=== PATIENT | female | born 1970 | race Caucasian/White ===

== ENCOUNTER 2024-09-29 08:29 | Emergency (ER) | payer BC, SELFPAY ==
--- NOTE | ~2024-09-29 | CT_ITS ---
EXAMINATION: CT abdomen pelvis w con DATE: 09/29/2024 09:30 INDICATION: Right lower quadrant abdominal pain. TECHNIQUE: Computed tomography (CT) of the abdomen and pelvis was performed with 100 mL Omnipaque 350 intravenous contrast. Automated exposure control and iterative reconstruction technique were employe d. The dose-length product was 205.87 mGy-cm. COMPARISON: None. FINDINGS: The visualized portions of the lung bases demonstrate mild atelectasis. No pleural effusion . The heart size is normal. No pericardial effusion. There are bilateral breast implants. The liver, spleen, gallbladder, pancreas, and adrenal glands are normal. There are cysts in the kidneys measurin g up to 6 mm on the right. There is a 3 mm stone in left kidney. There are scattered diverticula in t he colon. There is wall thickening of the hepatic flexure of the colon with surrounding fat stranding . The appendix is normal. There are no pathologically enlarged lymph nodes. There is physiologic flui d in the pelvis. There is mild lumbar spondylosis. Lumbar levoscoliosis is noted. IMPRESSION: 1. Acute diverticulitis of the hepatic flexure of the colon. No perforation or abscess. Reviewed, dictated and finalized at location [facility]. [facility]
[2024-09-29 08:32] VITALS: BP 139/68; PULSE 99; RESP 17; TEMP 36.6; O2SAT 99
[2024-09-29 08:50] VITALS: BP 137/91; PULSE 70; RESP 20; O2SAT 98
[2024-09-29 08:59] LABS: Hematocrit 40.1 % (37.0-47.0); Hemoglobin 13.5 g/dL (12.0-15.0); Mean Corpuscular HGB Conc 33.7 g/dl (32-36); Mean Corpuscular Hemoglobin 31.8 pg (26-34); Mean Corpuscular Volume 94.4 fl (80-100); Mean Platelet Volume 10.8 fl (7.4-10.4); Platelet Count Result 233 k/mm3 (150-375); Red Blood Count 4.25 M/mm3 (4.2-5.4)
[2024-09-29] MEDS: SODIUM CHLORIDE 0.9% IV 1,000 ML 999 ML IV CONT (08:59)
[2024-09-29] MEDS: MORPHINE SULFATE (*CRX) 4 MG/ML INJ IV PUSH (08:59)
[2024-09-29] MEDS: ONDANSETRON INJ 4 MG/2 ML VIAL IV PUSH (09:00)
[2024-09-29 09:08] LABS: BEDSIDEPREGUCG Negative (Negative)
[2024-09-29 09:14] LABS: Alanine Aminotransferase 13 U/L (6-35); Albumin Level 4.4 g/dL (3.5-5.1); Alkaline Phosphatase 46 U/L (38-126); Anion Gap 4 mmol/L (4-12); Aspartate Amino Transferase 24 U/L (14-36); Bilirubin,Total 1.2 mg/dL (0.2-1.3); Blood Urea Nitrogen 9 mg/dL (7-17); Calcium 9.3 mg/dL (8.4-10.2); Carbon Dioxide 28 mmol/L (22-30); Chloride 103 mmol/L (98-107); Estimated CRCL calculation 71 ml/min; Estimated Glomerular Filt Rate > 60; Glucose 100 mg/dL (65-110); Lipase 50 U/L (23-300); Potassium 4.1 mmol/L (3.4-5.0); Sodium 135 mmol/L (137-145)
[2024-09-29 09:29] LABS: Basophils Absolute Manual 0.04 K/mm3 (0.0-0.1); Basophils Percent Manual 1 % (0-1); Eosinophils Absolute Manual 0.12 K/mm3 (0.02-0.50); Eosinophils Percent Manual 3 % (0-4); Lymphocytes Absolute Manual 1.32 K/mm3 (1.1-4.5); Lymphocytes Percent Manual 33 % (18-44); Monocytes Absolute Manual 0.76 K/mm3 (0.1-0.90); Monocytes Percent Manual 19 % (3-9); Neutrophils Percent Manual 44 % (46-73); Total Cells Counted 100
[2024-09-29 09:30] LABS: Anisocytosis 1+; Platelet Estimate Adequate (Adequate); Schistocytes None Seen
--- NOTE | 2024-09-29 09:37 | ED.ABDPAIN ---
HPI - Abdominal Pain General Chief Complaint: Abdominal Pain Stated Complaint: right sided abd pain Time Seen by Provider: 09/29/24 08:44 History of Present Illness HPI narrative: Patient is a 54-year-old female who presents ER with right-sided abdominal pain. Moving towards right lower quadrant. Worsening over last 2 days. Worse with physical movement. Mild nausea and poor appetite. No diarrhea. Has not had similar symptoms previously. Related Data Allergies Allergy/AdvReac Type Severity Reaction Status Date / Time No Known Allergies Allergy Verified 09/29/24 08:34 Review of Systems Review of Systems: All systems reviewed & are unremarkable except as noted in HPI and below Constitutional: Constitutional: Reports no additional constitutional complaints Cardiovascular: Cardiovascular: Reports no additional cardiovascular complaints Respiratory: Respiratory: Reports no additional respiratory complaints Gastrointestinal: Gastrointestinal: Reports abdominal pain, Denies diarrhea, Denies nausea and Denies vomiting Genitourinary: Genitourinary: Reports no additional female genitourinary complaints PMFSH Past Medical History Medical History (Updated 09/29/24 @ 10:02 by Damaso Parra MD) Healthy female adult Surgical History Surgical History (Updated 09/29/24 @ 10:00 by Damaso Parra MD) History of breast augmentation Exam Narrative: GENERAL: Well-appearing, well-nourished, and in no acute distress. HEAD: Normocephalic, atraumatic. ENT: Mucous membranes moist. NECK: Supple. CHEST: Clear to auscultation. No respiratory distress. HEART: Regular rate and rhythm. Normal peripheral pulses. ABDOMEN: Soft, TTP right mid/upper abdomen, nondistended. EXTREMITIES: Normal range of motion. No edema. SKIN: Warm, dry, no rash. NEURO: Alert and oriented x3. PSYCH: Normal mood and affect. Course Course Emergency Course: patient resting comfortably. Informed of results. Appropriate for discharge home. Vital Signs Vital signs: Vital Signs Temperature 97.8 F 09/29/24 08:32 Pulse Rate 99 09/29/24 08:32 Respiratory Rate 17 09/29/24 08:32 Blood Pressure 139/68 09/29/24 08:32 Pulse Oximetry 99 09/29/24 08:32 Oxygen Delivery Room Air 09/29/24 08:32 Temperature 97.8 F 09/29/24 08:32 Pulse Rate 70 09/29/24 08:50 Respiratory Rate 20 09/29/24 08:50 Blood Pressure 137/91 H 09/29/24 08:50 Pulse Oximetry 98 09/29/24 08:50 Oxygen Delivery Room Air 09/29/24 08:32 MDM - Abdominal Pain Lab Data 09/29/24 08:53 09/29/24 08:53 Labs: Lab Results 09/29/24 09/29/24 Range/Units 08:53 09:07 WBC 4.0 L (4.5-10.0) K/mm3 RBC 4.25 (4.2-5.4) M/mm3 Hgb 13.5 (12.0-15.0) g/dL Hct 40.1 (37.0-47.0) % MCV 94.4 (80-100) fl MCH 31.8 (26-34) pg MCHC 33.7 (32-36) g/dl RDW 12.0 (11.5-14.5) % Plt Count 233 (150-375) k/mm3 MPV 10.8 H (7.4-10.4) fl Immature Gran % (Auto) Not Reportable Neut % (Auto) Not Reportable Lymph % (Auto) Not Reportable [place] % (Auto) Not Reportable Eos % (Auto) Not Reportable Baso % (Auto) Not Reportable Lymph # (Auto) Not Reportable [place] # (Auto) Not Reportable Eos # (Auto) Not Reportable Baso # (Auto) Not Reportable Abs Immat Gran (auto) Not Reportable Absolute Neuts (auto) Not Reportable Absolute Nucleated RBC Not Reportable Total Counted 100 Neutrophils % (Manual) 44 L (46-73) % Lymphocytes % (Manual) 33 (18-44) % Monocytes % (Manual) 19 H (3-9) % Eosinophils % (Manual) 3 (0-4) % Basophils % (Manual) 1 (0-1) % Nucleated RBC % Not Reportable Abs Lymphs (Manual) 1.32 (1.1-4.5) K/mm3 Abs Monocytes (Manual) 0.76 (0.1-0.90) K/mm3 Absolute Eos (Manual) 0.12 (0.02-0.50) K/mm3 Abs Basophils (Manual) 0.04 (0.0-0.1) K/mm3 Platelet Estimate Adequate (Adequate) Anisocytosis 1+ Schistocytes None seen Sodium 135 L (137-145) mmol/L Potassium 4.1 (3.4-5.0) mmol/L Chloride 103 (98-107) mmol/L Carbon Dioxide 28 (22-30) mmol/L Anion Gap 4 (4-12) mmol/L BUN 9 (7-17) mg/dL Creatinine 0.60 L (0.7-1.0) mg/dL Estim Creat Clear Calc 71 ml/min Estimated GFR > 60 (59 - ) Glucose 100 (65-110) mg/dL Calcium 9.3 (8.4-10.2) mg/dL Total Bilirubin 1.2 (0.2-1.3) mg/dL AST 24 (14-36) U/L ALT 13 (6-35) U/L Alkaline Phosphatase 46 (38-126) U/L Total Protein 8.0 (6.3-8.2) g/dL Albumin 4.4 (3.5-5.1) g/dL Lipase 50 (23-300) U/L POC Urine HCG, Qual Negative (Negative) Imaging Data Radiologist's impression: ITS Impressions Abdomen/Pelvis CT 09/29/24 09:31 IMPRESSION: 1. Acute diverticulitis of the hepatic flexure of the colon. No perforation or abscess. Discharge Plan Discharge Clinical Impression: Diverticulitis Patient Disposition: Home, Self-Care Condition: Stable Instructions: Diverticulitis (ED) Additional Instructions: Return to the emergency department if you develop severe abdominal pain, severe nausea and vomiting to the point where you are unable to keep down fluids, if you develop chest pain or difficulty breathing, blood in your stool, dizziness or fainting, or if you develop any other new or concerning symptoms as these could be signs of more serious medical illness. Try to stay well hydrated. Patient Language: Northern Irish Prescriptions: New amoxicillin-pot clavulanate 875-125 mg tablet 1 tablet PO Q12H Qty: 20 0RF ondansetron 4 mg tablet,disintegrating 4 mg PO Q6H PRN (Reason: nausea and vomiting) Qty: 10 0RF hydrocodone-acetaminophen 5-325 mg tablet 1 tablet PO Q6H PRN (Reason: pain) Qty: 10 0RF Follow-up/Referrals: Librado,Ana Hubbard, DIESEL ENGINE INSPECTOR [Primary Care Provider] - 1 Week
[2024-09-29 10:13] VITALS: BP 127/68; PULSE 80; RESP 18; O2SAT 99
--- OUTSIDE RECORDS SUMMARY | 2024-10-06 07:02 | XMS_ITS | Patient Health Summary ---
Author Organization [facility] Address [address] [place] [address] Care Team Providers Care Body Die Maker Name Role Phone Rober Butt MD Unavailable [phone] Jesus Alberto Smith MD Primary Care Provider Unavailabl e Note from [facility],non-owned Affiliates and Associated Physician Practices is amultiple site organization consisting of ambulatory clinics and hospital sitesin [place], [place], [place] and [place]. This disclosure is being madepursuant to the Care Everywhere program and may not contain all information available regarding this patient. Last updated 18.[facility] Allergies * Ibuprofen(Rash) -Medium Criticality * Nsaids,Inactive Medications * Be aware that medications may not be up to date on this document. Alwaysverify current medications with the patient. * zolpidem (AMBIEN) 10 MG tablet(Started 07/24/2016) TK 1 T PO QD HS PRF SLEEP 2 refills left * ALPRAZolam (XANAX) 0.25 MG tablet(Started 10/17/2018) Take 0.25 mg by mouth 2 times daily as needed for anxiety 1 refill left * levonorgestrel (MIRENA, 52 MG,) 20 MCG/24HR IUD 1 device by Intrauterine route as directed Placed 02/27/19 Active Problems Problem Noted Date Diagnosed Date IUD contraception 02/27/2019 IUD contraception 02/22/2014 Homozygous MTHFR mutation [id number] Social History Tobacco Use Types Packs/Day Years Used Date Smoking Tobacco: Never Smokeless Tobacco: Never Alcohol Use Standard Drinks/Week Comments Yes 2 (1 standard drink = 0.6 oz pur e alcohol) AUDIT-C Answer Date Recorded Q1: How often do you have a drink containing alc ohol? Monthly or less 11/21/2020 Average Number of Drinks Not on file 021 Frequency of Binge Drinking Not on file 11/10 Sex and Gender Information Value Date Recorded Sex Assigned at Not on file Gender Identity Not on file Sexual Orientation Not on file Last Filed Vital Signs Vital Sign Reading Time Taken Comments Blood Pressure 110/72 11/21/2020 1:44 PM PEDIATRIC NP Pulse 77 12/05/2019 10:30 AM PEDIATRIC NP Temperature 37.2 ??C (99 ??F) 12/05/2019 10:30 AM PEDIATRIC NP Respiratory Rate 15 12/05/2019 10:30 AM PEDIATRIC NP Oxygen Saturation 99% 12/05/2019 10:30 AM PEDIATRIC NP Inhaled Oxygen Concentration - - Weight 54.2 kg (119 lb 8 oz) 11/21/2020 1:44 PM PEDIATRIC NP Height 157.5 cm (5' 2 ) 11/21/2020 1:44 PM PEDIATRIC NP Body Mass Index 21.86 11/21/2020 1:44 PM PEDIATRIC NP Procedures * PAP IG LB+HPV APTIMA(Performed 11/21/2020) Performed for Well woman exam with routine gynecological exam * INFLUENZA A+B - POINT OF CARE (AMB)(Performed 12/05/2019) Performed for Influenza A * US PELVIS COMPLETE(Performed 11/06/2018) Performed for Ovarian cyst, follicular * PAP IG LB+HPV HR RFLX 16,18(Performed 11/06/2018) Performed for Well woman exam with routine gynecological exam * PAP IGP CERVICAL CANCER SCREENING(Performed 11/06/2018) Performed for Well woman exam with routine gynecological exam * US PELVIS COMPLETE(Performed 10/19/2018) Performed for Pelvic pain in female, Pelvic mass in female * MAMMOGRAPHY ORDER(Performed 11/19/2016) * PAP IG LB+HPV HR RFLX 16,18(Performed 08/30/2016) Performed for Well woman exam with routine gynecological exam * PAP IGP CERVICAL CANCER SCREENING(Performed 08/30/2016) Performed for Well woman exam with routine gynecological exam * GROSS + MICRO EXAM(Performed 08/26/2005) Results * PAP IG LB+HPV APTIMA (11/21/2020 3:05 PM PEDIATRIC NP) Diagnosis [facility] ACCOUNT BILL Comment: NEGATIVE FOR INTRAEPITHELIAL LESION OR MALIGNANCY. THIS SPECIMEN WAS RESCREENED PART OF OUR ETHNIC STUDIES PROFESSOR PROGRAM. Specimen Adequacy [facility] ACCOUNT BILL Comment:Satisfactory for elena luation. No endocervical component is identified. Clinician Provided ICD10 [facility] ACCOUNT BILL Comment: Z01.419 Z97.5 Performed by [facility] ACCOUNT BILL Comment:Jill Mallory Ditch Rider ([facility]) QC Reviewed by [facility] ACCOUNT BILL Comment:Xiomara Jean ytotechnologist ([facility]) Comment . [facility] ACCOUNT BILL Note [facility] ACCOUNT BILL Comment: The Pap smear is a screening test designed to aid in the detection of premalignant and malignant conditions of the uterine cervix. ??It is not a diagnostic procedure and should not be used as the sole means of detecting cervical cancer. ??Both false-positive and false-negative reports do occur. ? . IGLBP CPT Code Automation [facility] ACCOUNT BILL Comment: This liquid based ThinPrep(R) pap test was screened with the use of an image guided system. Human papillomavirus Aptima Negative Negative [facility] ACCOUNT BILL Comment: This nucleic acid amplification test detects fourteen high-risk HPV types (16,18,31,33,35,39,45,51,52,56,58,59,66,68) without differentiation. Pathology/Cytolog y PART OF UTERINE CERVIX / Unknown 11/21/2020 3:05 PM PEDIATRIC NP 11/21/2020 Narrative [facility] ACCOUNT BILL - 11/27/2020 1:08 PM PEDIATRIC NP Source.............Cervix No. of containers..01 ThinPrep Vial Resulting Agency Comment Lab Testing performed at: [address] ??[place] [phone] Rober Butt MD LAB - PATHOLOGY/CYTO LOGY ORDERABLES [facility] ACCOUNT BILL [address] [place] [address] * (ABNORMAL) INFLUENZA A+B - POINT OF CARE (AMB) (12/05/2019) Influenza A Antigen Rapid Positive(A) Negative Influenza B Antigen Rapid Negative Negative Influenza Internal Control present NEGATIVE - POSITIVE Influenza Lot Number [id number] Influenza Expiration Date 09/10/2021 Other NASOPHARYNGEAL SWAB / Unknown 12/05/2019 Ramandeep España BIOFUELS OPERATIONS MANAGER-SENIOR SQL SERVER DATABASE DEVELOPER LAB - POINT OF CARE ORDERABLES * US PELVIS COMPLETE (11/06/2018 11:54 AM PEDIATRIC NP) Only the most recent of2 resultswithin the time period is included. Anatomical Region Laterality Modality Pelvis Ultrasound Narrative 11/06/2018 11:54 AM PEDIATRIC NP Rober Butt MD ? 11/06/2018 11:54 AM [facility] LEGAL CONSULTANT [place] RECEPTIONIST DOCTOR'S OFFICE PELVIC ULTRASOUND Pt. Name: Karen Medeiros : ??1970 Exam Date: ?? 11/06/2018 LMP: ??No LMP recorded. Patient has had an implant. Referring Physician: ?? Lilian Butt Reason for Scan: ??Follow ovarian cysts Transabdominal: ??No Transvaginal: ??Yes Uterine orientation: ??Normal Endometrial thickness: ??Midline IUD ? Left Ovary: ?? Length 1.50 cm. ? Width ??2.43 cm. ? Height 2.47 cm. ? Volume 4.714 cc Right Ovary: ?? Length 2.36 cm. ?? Width ??2.27 cm. ?? Height 1.32 cm. ?? Volume 3.703 cc [place]: Negative for free fluid Instrument Shop Supervisor comments: Left ovarian complex mass, 1.7cm. Right ovarian anechoic masses, 1.4cm and 0.9cm. Color doppler used. Physician Interpretation: ?? Left ovary with small corpus luteum, the right ovarian cysts are much smaller, ??IUD in place. ?? Instrument Shop Supervisor: ??Fidelina Pickard RDMS, RT(R) Images will be scanned into the record. Interpreting Physician: Lilian Butt ? Rober Butt MD US ORDERABLES * PAP IGP CERVICAL CANCER SCREENING (11/06/2018 11:49 AM PEDIATRIC NP) Only the most recent of2 resultswithin the time period is included. Age Gdln ACOG Testing 30-65 [facility] INSURANCE BILL PART OF UTERINE CERVIX / Unknown 11/06/2018 11:49 AM PEDIATRIC NP 11/07/2018 Narrative [facility] INSURANCE BILL - 11/08/2018 5:10 PM PEDIATRIC NP No. of containers..01 ThinPrep Vial Resulting Agency Comment [facility] [place] [facility] ??[place] [phone] Rober Butt MD LAB - PATHOLOGY/CYTO LOGY ORDERABLES [facility] INSURANCE BILL [address] [place] [address] * PAP IG LB+HPV HR RFLX 16,18 (11/06/2018 11:49 AM PEDIATRIC NP) Only the most recent of2 resultswithin the time period is included. Diagnosis [facility] INSURANCE BILL Comment:NEGATIVE FOR INTRAEP ITHELIAL LESION OR MALIGNANCY. Specimen Adequacy [facility] INSURANCE BILL Comment: Satisfactory for evaluation. ??Endocervical and/or squamous metaplastic cells (endocervical component) are present. Clinician Provided ICD10 [facility] INSURANCE BILL Comment: R10.2 N83.00 Z01.419 Performed by [facility] INSURANCE BILL Comment:Genaro Terrell isory Ditch Rider (ASCP) Comment . [facility] INSURANCE BILL Note [facility] INSURANCE BILL Comment: The Pap smear is a screening test designed to aid in the detection of premalignant and malignant conditions of the uterine cervix. ??It is not a diagnostic procedure and should not be used as the sole means of detecting cervical cancer. ??Both false-positive and false-negative reports do occur. ? . IGLBP CPT Code Automation [facility] INSURANCE BILL Comment: This liquid based ThinPrep(R) pap test was screened with the use of an image guided system. Human papillomavirus High Risk Negative Negative [facility] INSURANCE BILL Comment: This high-risk HPV test detects thirteen high-risk types (16/18/31/33/35/39/45/51/52/56/58/59/68) without differentiation. ?. 11/06/2018 11:4 9 AM PEDIATRIC NP 11/07/2018 Narrative [facility] INSURANCE BILL - 11/08/2018 5:10 PM PEDIATRIC NP No. of containers..01 ThinPrep Vial Resulting Agency Comment [facility] [place] [address] [place] [phone] Rober Butt MD LAB - PATHOLOGY/CYTO LOGY ORDERABLES [facility] INSURANCE BILL [address] [place] [address] * MAMMOGRAPHY ORDER (11/19/2016) Anatomical Region Laterality Modality Mammography Rober Butt MD MAMMO ORDERABLES * GROSS + MICRO EXAM (08/26/2005 12:00 AM PEDIATRIC NP) Result CASE NUMBER [id number] Comment: ORDERING PHYSICIAN ??ROBER BUTT SPECIMEN TYPE ?Prod of Conception Date ? 08/27/2005 Physician ?Taco Butt Description ? The specimen is received in a container labeled with the patient's name, Karen Medeiros, and products of conception. ??It consists of 150 ml of red fluid with multiple pieces of pink melara irregular shaped tissue. Some are large pieces of smooth and frothy friable tissue measuring 7.0 x 3.5 x 0.6 cm. ??No tissue is seen. ??The specimen weighs in total 2 grams. ??Marine Service Operator sections are submitted in cassettes A and B. MS saenz Microscopic Exam ? Micro sections reveals primarily hemorrhagic and necrotic decidua with scattered immature chorionic villi and fragments of gestational type endometrium. ?? tissue is not present. GM/bk Diagnosis ? I. ?Products of conception -- ?Products of conception. GM/bk Project Architect ? bk Pathologist ?Odilia Grey M.D. [place]. ?08/28/2005 0922 <1> CPT code ? 93612 MISCELLANEOUS SAMPLE S / Unknown 08/26/2005 08/27/2005 7:40 AM PEDIATRIC NP Historical Provider LAB - PATHOLOGY/C YTOLOGY ORDERABLES Care Teams Body Die Maker Relationship Specialty Start Date End Date Jesus Alberto Smith MD [address] [place] [address] PCP - General Internal Medicine 08/30/16 Rober Butt MD [address] [place] [id number] Fitness And Wellness Coordinator Obstetrics and Gynecology 08/27/16
--- OUTSIDE RECORDS SUMMARY | 2024-10-06 07:02 | XMS_ITS | Encounter Summary ---
Author Organization [facility] Address [address] [place] [address] Care Team Providers Care Rn Obgyn Name Role Phone Rober Cardona MD Unavailable [phone] Jesus Alberto Smith MD Primary Care Provider Unavailabl e Reason for Visit * Reason Comments Ear Pain Encounter Details Date Type Department Care Team (Late st Contact Info) Description 01/09/2019 10:00 AM CDT Office Visit [facility] AT [address] [id number] Provider, [facility] Exp Nameoki Non-recurrent acute suppurative otitis media of left ear without spontaneous rupture of tympanic membrane (Primary Dx) Social History Tobacco Use Types Packs/Day Years Used Date Smoking Tobacco: Never Smokeless Tobacco: Never Alcohol Use Standard Drinks/Week Comments Yes 2 (1 standard drink = 0.6 oz pur e alcohol) Sex and Gender Information Value Date Recorded Sex Assigned at Not on file Gender Identity Not on file Sexual Orientation Not on file documented as of this encounter Last Filed Vital Signs Vital Sign Reading Time Taken Comments Blood Pressure 110/68 01/09/2019 10:16 AM CDT Pulse 100 01/09/2019 10:16 AM CDT Temperature 36.8 ??C (98.2 ??F) 01/09/2019 10:16 AM C DT Respiratory Rate 14 01/09/2019 10:16 AM CDT Oxygen Saturation - - Inhaled Oxygen Concentration - - Weight 53.5 kg (118 lb) 01/09/2019 10:16 AM CDT Height 157.5 cm (5' 2 ) 01/09/2019 10:16 AM CDT Body Mass Index 21.58 01/09/2019 10:16 AM CDT documented in this encounter Patient Instructions * Patient Instructions* Ramandeep Moya, BIBLICAL LANGUAGES PROFESSOR-DIGITAL COMMENTATOR - 01/09/2019 10:25 AM CDT Take all medication as prescribed. Keep ear canal free from water Do not place Q-Tips or other objects into ear canal Do not use OTC ear drops without consulting with your healthcare provider. May take Tylenol or Motrin for fever or pain as directed per package instructions. Reviewed education materials and instructions with patient and answered all questions. Follow up with Jesus Alberto Smith MD if symptoms worsen or do not complexly resolve. GO TO THE ER WITH ANY NEW ONSET OF FEVER, PAIN BEHIND THE EAR AND/OR REDNESS OVER THE BONE BEHIND THE EAR, OR SWELLING OF THE EXTERNAL EAR AND/OR EXTERNAL EAR APPEARING TO BE DISPLACED DOWNWARD. THESE ARE ALL SIGNS OF A SERIOUS COMPLICATION AND REQUIRES IMMEDIATE ATTENTION. Ear Infection SURVEY WORKERS SUPERVISOR: An ear infection is also called otitis media. An ear infection may be caused by blocked or swollen eustachian tubes. Eustachian tubes connect the middle ear to the back of the nose and throat. They drain fluid from the middle ear. With an ear infection, fluid builds up and is infected by germs. Thegerms grow easily in fluid trapped behind the eardrum. Common symptoms include the following: ?? Ear pain ?? Fever or a headache ?? Trouble hearing ?? Ringing or buzzing in your ear ?? Plugged ear or an ear that feels full ?? Dizziness ?? Nausea or vomiting Call 911 or have someone call 911 for the following: ?? You have a seizure. Seek immediate care for the following symptoms: ?? You have a fever and a stiff neck. Contact your healthcare provider if: ?? Your ear pain gets worse or does not go away, even after treatment. ?? The outside of your ear is red or swollen. ?? You are vomiting or have diarrhea. ?? You have fluid coming from your ear. ?? You have questions or concerns about your condition or care. Medicines: You may need any of the following: ?? Acetaminophen decreases pain and fever. It is available without a doctor's order. Ask how much to take and how often to take it. Follow directions. Read the labels of all other medicines you are using to see if they also contain acetaminophen, or ask your doctor or pharmacist. Acetaminophen can cause liver damage if not taken correctly. Do not use more than 4 grams (4,000 milligrams) total of acetaminophen in one day. ?? NSAIDs , such as ibuprofen, help decrease swelling, pain, and fever. This medicine is available with or without a doctor's order. NSAIDs can cause stomach bleeding or kidney problems in certain people. If you take blood thinner medicine, always ask your healthcare provider if NSAIDs are safe foryou. Always read the medicine label and follow directions. ?? Ear drops help treat your ear pain. ?? Antibiotics help treat a bacterial infection that caused your ear infection. ?? Take your medicine as directed. Contact your healthcare provider if you think your medicine is not helping or if you have side effects. Tell him or her if you are allergic to any medicine. Keep a list of the medicines, vitamins, and herbs you take. Include the amounts, and when and why you take them. Bring the list or the pill bottles to follow-up visits. Carry your medicine list with you in case of an emergency. Manage your symptoms: ?? Apply heat on your ear for 15 to 20 minutes, 3 to 4 times a day or as directed. Heat helps decrease pain. ?? Apply ice on your ear for 15 to 20 minutes, 3 to 4 times a day for 2 days or as directed. Use anice pack, or put crushed ice in a plastic bag. Cover it with a towel before you apply it to your ear. Ice decreases swelling and pain. Prevent an ear infection: ?? Wash your hands often. Use soap and water. Wash your hands after you use the bathroom, change a child's diapers, or sneeze. Wash your hands before you prepare or eat food. ?? Stay away from people who are ill. Some germs are easily and quickly spread through contact. Follow up with your healthcare provider as directed: Write down your questions so you remember to ask them during your visits. ?? Copyright [employer] 2019 Information is for End User's use only and may not be sold, redistributed or otherwise used for commercial purposes. All illustrations and images included in CareNotes?? are the copyrighted property of [employer], [employer]. or [employer] [employer] The above information is an educational speech language clinician only. It is not intended as medical advice for individual conditions or treatments. Talk to your doctor, nurse or pharmacist before following any medical regimen to see if it is safe and effective for you. documented in this encounter Progress Notes * Ramandeep Moya APRN-CNP - 01/09/2019 10:15 AM CDT Images from the original note were not included. Subjective: Karen Medeiros is a 48 year old female who presents to the clinic today for Chief Complaint Patient presents with ??? Ear Pain . Primary Care Physician is Jesus Alberto Smith MD. Symptoms include ear pain left, drainage left, plugged sensation left and congestion. Onset of symptoms was 1 day ago, rapidly worsening since that time. She has also reported the following symptoms:congestion, post nasal drip, left ear pressure/pain, non productive cough, low grade fever, and is drinking plenty of fluids. The ear pain is described as aching, sharp, stabbing and shooting, and is9/10 in intensity. OTC- Motrin with little pain control (last dose was 1 hr ago). Sick Contacts: yes, sister is sick with strep. Patient states she has been dealing with a mild URI for the past week. Past Medical History: Diagnosis Date ??? Homozygous MTHFR mutation [id number] ??? IUD contraception 02/22/2014 Mirena 02/22/14 No family history on file. Current Outpatient Prescriptions Medication Sig Dispense Refill ??? ALPRAZolam (XANAX) 0.25 MG tablet Take 0.25 mg by mouth 2 times daily as needed for anxiety 1 ??? amoxicillin-clavulanate (AUGMENTIN) 875-125 MG tablet Take 1 tablet by mouth 2 times daily withmorning and evening meal for 7 days 14 tablet 0 ??? levonorgestrel (MIRENA, 52 MG,) 20 MCG/24HR IUD 1 Device by Intrauterine route as directed Insertion Date: 02/22/2014 1 Device ??? zolpidem (AMBIEN) 10 MG tablet TK 1 T PO QD HS PRF SLEEP 2 No current facility-administered medications for this visit. Allergies Allergen Reactions ??? Advil [Ibuprofen] Rash Social History Social History ??? Marital status: Social History Main Topics ??? Smoking status: Never Smoker ??? Smokeless tobacco: Never Used ??? Alcohol use 1.2 - 2.4 oz/week 2 - 4 Alcoholic drink(s) per week ??? Drug use: No ??? Sexual activity: Yes Partners: Male control/ protection: IUD Other Topics Concern Review of Systems Constitutional: Positive for fevers, chills, malaise Eyes: Negative Ears, nose, mouth, and throat: Positive for congestion, left ear pain with drainage Respiratory: Positive for acute cough Cardiovascular: Negative Hematologic/lymphatic: Positive for swollen nodes Objective: BP 110/68 Pulse 100 Temp 98.2 ??F (36.8 ??C) Resp 14 Ht 1.575 m (5' 2 ) Wt 53.5 kg (118 lb) BMI 21.58 kg/m2 Exam General appearance: alert, cooperative, no distress, oriented to person, place, and time, wellappearing Head: normocephalic, without trauma Eyes: sclera and conjunctiva clear Ears: Right posterior TM with serous fluid. No erythema or bulging; Left TM- erythematous and bulging. Nose: nares open; no septal deviation is noted, nasal mucosa not inflamed Throat: no mucous membrane abnormalities Neck: supple Nodes: pre-auricular adenopathy on the left Lungs: breath sounds normal and symmetric; no rales or wheezes Heart: regular rhythm, normal S1 and S2, without murmurs, gallops or rubs Assessment: Encounter Diagnosis Name Primary? Non-recurrent acute suppurative otitis media of left ear without spontaneous rupture of tympanic membrane Yes Plan: Take all medication as prescribed. Keep ear canal free from water Do not place Q-Tips or other objects into ear canal Do not use OTC ear drops without consulting with your healthcare provider. May take Tylenol or Mortin for fever or pain as directed per package instructions. May apply mild heat to area for comfort. Reviewed education materials and instructions with patient and answered all questions. Karen Medeiros verbalized understanding and agrees with plan. Follow up with Jesus Alberto Smith MD if symptoms worsen or do not completely resolve. GO TO THE ER WITH ANY NEW ONSET OF FEVER, PAIN BEHIND THE EAR AND/OR REDNESS OVER THE BONE BEHIND THE EAR, OR SWELLING OF THE EXTERNAL EAR AND/OR EXTERNAL EAR APPEARING TO BE DISPLACED DOWNWARD. THESE ARE ALL SIGNS OF A SERIOUS COMPLICATION AND REQUIRES IMMEDIATE ATTENTION. Orders Placed This Encounter ??? amoxicillin-clavulanate (AUGMENTIN) 875-125 MG tablet Sig: Take 1 tablet by mouth 2 times daily with morning and evening meal for 7 days Dispense: 14 tablet Refill: 0 DONAVAN Willis 01/09/2019 10:29 AM documented in this encounter Plan of Treatment Not on file documented as of this encounter Visit Diagnoses Diagnosis Non-recurrent acute suppurative otitis media of left ear without spontaneous rupture of tympanic membrane- Primary documented in this encounter Care Teams Rn Obgyn Relationship Specialty Start Date End Date Jesus Alberto Smith MD [facility] [id number] PCP - General Internal Medicine 08/30/16 Rober Cardona MD [facility] [address] [id number] Manager Strategy Obstetrics and Gynecology 08/27/16 documented as of this encounter
--- OUTSIDE RECORDS SUMMARY | 2024-10-06 07:02 | XMS_ITS | Encounter Summary ---
Author Organization [facility] Address [address] [place] [address] Care Team Providers Care Mobile Development Manager Name Role Phone Rober Cardona MD Unavailable [phone] Jesus Alberto Smith MD Primary Care Provider Unavailabl e Reason for Visit * Reason Comments Fever Encounter Details Date Type Department Care Team (Late st Contact Info) Description 12/05/2019 10:20 AM STATISTICAL PROGRAMMER ANALYST Office Visit [facility] [address] [place] [address] Provider, [facility] Exp Nameoki Influenza A (Primary Dx) Social History Tobacco Use Types [...] Sign Reading Time Taken Comments Blood Pressure 102/70 12/05/2019 10:30 AM STATISTICAL PROGRAMMER ANALYST Pulse 77 12/05/2019 10:30 AM STATISTICAL PROGRAMMER ANALYST Temperature 37.2 ??C (99 ??F) 12/05/2019 10:30 AM STATISTICAL PROGRAMMER ANALYST Respiratory Rate 15 12/05/2019 10:30 AM STATISTICAL PROGRAMMER ANALYST Oxygen Saturation 99% 12/05/2019 10:30 AM STATISTICAL PROGRAMMER ANALYST Inhaled Oxygen Concentration - - Weight 53.1 kg (117 lb) 12/05/2019 10:30 AM STATISTICAL PROGRAMMER ANALYST Height 157.5 cm (5' 2 ) 12/05/2019 10:30 AM STATISTICAL PROGRAMMER ANALYST Body Mass Index 21.4 12/05/2019 10:30 AM STATISTICAL PROGRAMMER ANALYST documented in this encounter Patient Instructions * Patient Instructions* Ramandeep Moya APRN-SECURITY CONSULTANT - 12/05/2019 10:36 AM STATISTICAL PROGRAMMER ANALYST Images from the original note were not included. Influenza ??? Supportive care is the focus of care with influenza-make sure to stay well- hydrated and treat symptoms with over the counter medications for symptom relief. ??? Take guaifenesin expectorants (Mucinex) to promote cough ??? For cough supression, dextromethorphan (Delsym syrup, Robitussin cough capsules or store brand). Dextromethorphan is considered safe for and breast feeding women. ??? Antihistamine, i.e. Claritin, Zyrtec or Benadryl for nasal drainage, per package directions. ??? Increase oral fluids to at least 2 liters (2 quarts) of non-caffeinated, non-alcoholic beverages daily ??? Increase rest, monitor temperature ??? May alternate acetaminophen (Tylenol) and ibuprofen (Motrin or Advil) with food every 4-6 hoursfor fever, body aches, headache or sore throat. Do not exceed maximum daily dose per package instructions ??? May use hard candy, throat lozenges, Chloraseptic spray or warm salt water gargles to soothe throat ??? Activity as tolerated, Avoid crowds and large groups ??? Avoid spreading germs by washing hands frequently and covering mouth when coughing ??? People with influenza are contagious 1 day before symptoms begin and up to 7 days after gettingck Influenza Follow-up ??? Follow up with the clinic, primary care provider(Jesus Alberto Smith MD) or urgent care if symptoms become more severe. ??? If you begin to feel better, then feel significantly worse, see your primary care provider or go to urgent care / ER SERIOUS COMPLICATIONS OF INFLUENZA CAN OCCUR. CALL 911 OR GO TO ER WITH ANY DIFFICULTY BREATHING, SHORTNESS OF BREATH, INCREASED WORK OF BREATHING, DIFFICULTY TAKING A DEEP BREATH, ANY CHANGES IN THECOLOR OF YOUR SKIN (BLUISH OR PALE COLOR), WORSENING OF COUGH, OR CONSISTENT FEVERS, INABILITY TO KEEP FLUIDS DOWN, DECREASED ABILITIY TO URINATE, INCREASED HEADACHE, OR NEW NECK STIFFNESS. INFLUENZALEAVES YOU MORE VULNERABLE TO DEVELOP A BACTERIAL INFECTION AND ANY OF THESE SIGNS AND SYMPTOMS SHOULD BE TAKEN SERIOUSLY. Patient Education Influenza HOTEL ASSISTANT MANAGER: Influenza (the flu) is an infection caused by the influenza virus. The flu is easily spread when aninfected person coughs, sneezes, or has close contact with others. You may be able to spread the flu to others for 1 week or longer after signs or symptoms appear. Common signs and symptoms include the following: ?? Fever and chills ?? Headaches, body aches, and muscle or joint pain ?? Cough, runny nose, and sore throat ?? Loss of appetite, nausea, vomiting, or diarrhea ?? Tiredness ?? Trouble breathing Call your local emergency number (911 in the ) if: ?? You have trouble breathing, and your lips look purple or blue. ?? You have a seizure. Seek care immediately if: ?? You are dizzy, or you are urinating less or not at all. ?? You have a headache with a stiff neck, and you feel tired or confused. ?? You have new pain or pressure in your chest. ?? Your symptoms, such as shortness of breath, vomiting, or diarrhea, get worse. ?? Your symptoms, such as fever and coughing, seem to get better, but then get worse. Call your doctor if: ?? You have new muscle pain or weakness. ?? You have questions or concerns about your condition or care. Treatment for influenza may include any of the following: ?? Acetaminophen decreases [...] the medicine label and follow directions. ?? Antivirals help fight a viral infection. Manage your symptoms: ?? Rest as much as you can to help you recover. ?? Drink liquids as directed to help prevent dehydration. Ask how much liquid to drink each day andwhich liquids are best for you. Prevent the spread of the flu: ?? Wash your hands often. Use soap and water. Wash your hands after you use the bathroom, change a child's diapers, or sneeze. Wash your hands before you prepare or eat food. Use gel hand cleanser that has 60% alcohol, when soap and water are not available. Do not touch your eyes, nose, or mouth unless you have washed your hands first. ?? Cover your mouth when you sneeze or cough. Cough into a tissue or the bend of your arm. If you use a tissue, throw it away immediately and wash your hands. ?? Clean shared items with a germ-killing casing cleaner. Clean table surfaces, doorknobs, and light switches. Do not share towels, silverware, and dishes with people who are sick. Wash bed sheets, towels, silverware, and dishes with soap and water. ?? Wear a mask over your mouth and nose if you are sick. The face mask may help protect others frombecoming infected with the flu. Wear the mask when in common areas of your home or if you seek carewith a healthcare provider. ?? Stay away from others if you are sick. Stay at home until 24 hours after your fever and symptomsare gone. ?? Influenza vaccine helps prevent influenza (flu). Everyone 6 months or older should get a yearly influenza vaccine. Get the vaccine as soon as recommended each year, usually in June or July. Follow up with your doctor as directed: Write down your questions so you remember to ask them during your visits. ?? Copyright [employer] 2019 Information is for End User's use only and may not be sold, redistributed or otherwise used for commercial purposes. All illustrations and images included in CareNotes?? are the copyrighted property of [employer], [employer]. or [employer] The above information is an diet aide only. It is not intended as medical advice for individual conditions or treatments. Talk to your doctor, nurse or pharmacist before following any medical regimen to see if it is safe and effective for you. ISTICAL PROGRAMMER ANALYST documented in this encounter Progress Notes * Ramandeep Moya APRN-CNP - 12/05/2019 10:22 AM CST Images from the original note were not included. Subjective: Karen Medeiros is a 49 year old female who presents to the clinic for Chief Complaint Patient presents with ??? Fever . Her Primary Care Physician is Jesus Alberto Smith MD. She reports sore throat, congestion, post nasal drip, fever with Tmax to 100.5-101.9, non productive cough, achiness, headache, fatigue, and chills. Onset of symptoms was 2 days ago, and is gradually worsening since that time. She is drinking plenty of fluids.OTC- Motrin for fever and achiness. Sick Contacts: Yes, son and two nephews tested positive for influenza. Past Medical History: Diagnosis Date ??? Homozygous MTHFR mutation [id number] ??? IUD contraception 02/27/2019 MIRENA #2 02/27/19 No family history on file. Current Outpatient Medications Medication Sig Dispense Refill ??? ALPRAZolam (XANAX) 0.25 MG tablet Take 0.25 mg by mouth 2 times daily as needed for anxiety 1 ??? levonorgestrel (MIRENA, 52 MG,) 20 MCG/24HR IUD 1 device by Intrauterine route as directed Placed 02/27/19 ??? oseltamivir (TAMIFLU) 75 MG capsule Take 1 capsule by mouth 2 times daily for 5 days Reasons: Influenza A 10 capsule 0 ??? zolpidem (AMBIEN) 10 MG tablet TK 1 T PO QD HS PRF SLEEP 2 No current facility-administered medications for this visit. Allergies Allergen Reactions ??? Advil [Ibuprofen] Rash Social History Socioeconomic History ??? Marital status: Spouse name: Not on file ??? Number of children: Not on file ??? Years of education: Not on file ??? Highest education level: Not on file Occupational History ??? Not on file Social Needs ??? Financial resource strain: Not on file ??? Food insecurity Worry: Not on file Inability: Not on file ??? Transportation needs Medical: Not on file Non-medical: Not on file Tobacco Use ??? Smoking status: Never Smoker ??? Smokeless tobacco: Never Used Substance and Sexual Activity ??? Alcohol use: Yes Alcohol/week: 2.0 - 4.0 standard drinks Types: 2 - 4 Alcoholic drink(s) per week ??? Drug use: No ??? Sexual activity: Yes Partners: Male control/protection: I.U.D. Lifestyle ??? Physical activity Days per week: Not on file Minutes per session: Not on file ??? Stress: Not on file Relationships ??? Social connections Talks on phone: Not on file Gets together: Not on file Attends zoroastrianism service: Not on file Active member of club or organization: Not on file Attends meetings of clubs or organizations: Not on file Relationship status: Not on file ??? Intimate partner violence Fear of current or ex partner: Not on file Emotionally abused: Not on file Physically abused: Not on file Forced sexual activity: Not on file Other Topics Concern ??? Not on file Social History Narrative ??? Not on file Review of Systems Constitutional: Positive for fatigue, fevers, chills, malaise, body aches, and RASMUSSEN Eyes: Negative Ears, nose, mouth, and throat: Positive for sore throat, runny nose, nasal congestion Respiratory: Positive for acute cough Cardiovascular: Negative Gastrointestinal: Negative Hematologic/lymphatic: Positive for swollen nodes Neurological: Negative Objective: BP 102/70 Pulse 77 Temp 99 ??F (37.2 ??C) Resp 15 Ht 1.575 m (5' 2 ) Wt 53.1 kg (117 lb) SpO2 99% BMI 21.4 kg/m2 Exam General appearance: alert, cooperative, no distress, oriented to person, place, and time, ill-appearing Head: normocephalic, without trauma Eyes: sclera and conjunctiva clear Ears: canals clear, tympanic membranes normal, hearing intact to voice Nose: nares open; no septal deviation is noted, mucosa erythematous and swollen, clear rhinorrhea Throat: no mucous membrane abnormalities, mild oropharyngeal erythema, no exudates, tonsils unremarkable Neck: supple Nodes: mild, benign-appearing anterior cervical adenopathy Lungs: breath sounds normal and symmetric; no rales or wheezes Heart: regular rhythm, normal S1 and S2, without murmurs, gallops or rubs Neurologic: mental status normal alert Assessment: Encounter Diagnosis Name Primary? Influenza A Yes Plan: Discussed potential side effects of Tamiflu with patient. Stay hydrated and rest when able. May take Tylenol or Ibuprofen for fever and body aches as directed per package instructions Activity as tolerated, Avoid crowds and large groups Avoid spreading germs by washing hands frequently and covering mouth when coughing People with influenza are contagious 1 day before symptoms begin and up to 7 days after getting sick Influenza Follow-up ??? Follow up with the clinic, primary care provider(Jesus Alberto Smith MD) or urgent care if symptoms become more severe. ??? If you begin to feel better, then feel significantly worse, see your primary care provider or go to urgent care / ER Follow up with Jesus Alberto Smith MD if symptoms do not start to improve in 48 hours, if symptoms worsen, or do not completely resolve. Reviewed education materials and instructions with patient and answered all questions. Karen Medeiros verbalized understanding and agrees with plan. SERIOUS COMPLICATIONS OF INFLUENZA CAN OCCUR. CALL 911 OR GO TO ER WITH ANY DIFFICULTY BREATHING, SHORTNESS OF BREATH, INCREASED WORK OF BREATHING, DIFFICULTY TAKING A DEEP BREATH, ANY CHANGES IN THECOLOR OF YOUR SKIN (BLUISH OR PALE COLOR), WORSENING OF COUGH, OR CONSISTENT FEVERS, INABILITY TO KEEP FLUIDS DOWN, DECREASED ABILITIY TO URINATE, INCREASED HEADACHE, OR NEW NECK STIFFNESS. INFLUENZALEAVES YOU MORE VULNERABLE TO DEVELOP A BACTERIAL INFECTION AND ANY OF THESE SIGNS AND SYMPTOMS SHOULD BE TAKEN SERIOUSLY. Orders Placed This Encounter ??? INFLUENZA A+B - POINT OF CARE (AMB) ??? oseltamivir (TAMIFLU) 75 MG capsule Sig: Take 1 capsule by mouth 2 times daily for 5 days Reasons: Influenza A Dispense: 10 capsule Refill: 0 Recent Results (from the past 24 hour(s)) INFLUENZA A+B - POINT OF CARE (AMB) Collection Time: 12/05/19 12:00 AM Result Value Ref Range Influenza A Antigen Rapid Positive (Abnormal) Negative Influenza B Antigen Rapid Negative Negative Influenza Internal Control present NEGATIVE - POSITIVE Influenza Lot Number [id number] Influenza Expiration Date 09/10/2021 Ramandeep Moya DNP, HAZARDOUS WASTE MATERIAL TECHNICIAN-LAYNE 12/05/2019 10:37 AM ISTICAL PROGRAMMER ANALYST documented in this encounter Plan of Treatment Not on file documented as of this encounter Procedures Procedure Name Priority Date/Time Associated Diagnosis Comments INFLUENZA A+B - POINT OF CARE (AMB) Routine 12/05/2019 Influenza A documented in this encounter Results * (ABNORMAL) INFLUENZA A+B - POINT OF CARE (AMB) (12/05/2019) Influenza A Antigen Rapid Positive(A) Negative Influenza B Antigen Rapid Negative Negative Influenza Internal Control present NEGATIVE - POSITIVE Influenza Lot Number [id number] Influenza Expiration Date 09/10/2021 Other NASOPHARYNGEAL SWAB / Unknown 12/05/2019 Ramandeep Moya APRN-SECURITY CONSULTANT LAB - POINT OF CARE ORDERABLES documented in this encounter Visit Diagnoses Diagnosis Influenza A- Primary Influenza with other respiratory manifestations documented in this encounter Care Teams Mobile Development Manager Relationship Specialty Start Date End Date Jesus Alberto Smith MD [address] [place] [address] PCP - General Internal Medicine 08/30/16 Rober Cardona MD [address] [place] [phone] Miscellaneous Machine Operator Obstetrics and Gynecology 08/27/16 documented as of this encounter
--- OUTSIDE RECORDS SUMMARY | 2024-10-06 07:02 | XMS_ITS | Encounter Summary ---
Author Organization [facility] Address [address] [place] [address] Care Team Providers Care Computer Forensic Examiner Name Role Phone Rober Cardona MD Unavailable [phone] Jesus Alberto Smith MD Primary Care Provider Unavailabl e Reason for Referral * Radiology Services (Routine) - Closed Specialty Diagnoses / Procedures Referred By Contanderson t Referred To Contact Diagnoses Well woman exam with routine gynecological exam Procedures MAMMO BILAT SCREENING Rober Cardona MD [address] [place] [address] [place] [phone] [facility] [address] [facility] Referral ID Status Reason Start Date Expiration Date Visits Re quested Visits Authorized [id number] Closed 11/06/2018 05/05/2019 1 1 ESS PROFESSIONAL Reason for Visit * Reason Comments Well Women Exam Encounter Details Date Type Department Care Team (Late st Contact Info) Description 11/06/2018 11:40 AM FITNESS PROFESSIONAL Office Visit [facility] - REGULATORY COMPLIANCE SPECIALIST [address] [place] [address], [address] [place] [phone] Rober Cardona MD [address] [place] [address] [place] [phone] Pelvic pain in female (Primary Dx); Ovarian cyst, follicular; Well woman exam with routine gynecological exam Social History Tobacco Use Types Packs/Day Years [...] Sign Reading Time Taken Comments Blood Pressure 108/66 11/06/2018 11:34 AM FITNESS PROFESSIONAL Pulse - - Temperature - - Respiratory Rate - - Oxygen Saturation - - Inhaled Oxygen Concentration - - Weight 55.3 kg (122 lb) 11/06/2018 11:34 AM FITNESS PROFESSIONAL Height 157.5 cm (5' 2 ) 11/06/2018 11:34 AM FITNESS PROFESSIONAL Body Mass Index 22.31 11/06/2018 11:34 AM FITNESS PROFESSIONAL documented in this encounter Progress Notes * Rober Cardona MD - 11/06/2018 11:36 AM CST Well-woman and f/u ultrasound. Karen Medeiros is a 48 y.o. female who presents for ultrasound follow-up. No LMP recorded. Patient has had an implant. Reason for u/s: follow-up right ovarian cystic masses, pelvic pain U/S results: shrinking of right ovarian cyst 1.5 cm and 0.9cm diameter cysts now, small, simple. Normal follicle on the left. IUD in place. The pain she had previously had is much better. No discharge. No dyspareunia. IUD good for 4 more months She completed the temporary OCPs. . Kathryn levi coming up this week Past Medical History: Diagnosis Date ??? Homozygous MTHFR mutation C677T ??? IUD contraception 02/22/2014 Mirena 02/22/14 No family history on file. Outpatient Prescriptions Marked as Taking for the 11/06/18 encounter (Office Visit) with Rober Cardona MD Medication Sig Dispense Refill ??? ALPRAZolam (XANAX) 0.25 MG tablet Take 0.25 mg by mouth 2 times daily as needed for anxiety 1 ??? levonorgestrel (MIRENA, 52 MG,) 20 MCG/24HR IUD 1 Device by Intrauterine route as directed Insertion Date: 02/22/2014 1 Device ??? zolpidem (AMBIEN) 10 MG tablet TK 1 T PO QD HS PRF SLEEP 2 Allergies Allergen Reactions ??? Nsaids Social History Social History ??? Marital status: Spouse name: N/A ??? Number of children: N/A ??? Years of education: N/A Occupational History ??? Not on file. Social History Main Topics ??? Smoking status: Never Smoker ??? Smokeless tobacco: Never Used ??? Alcohol use 1.2 - 2.4 oz/week 2 - 4 Alcoholic drink(s) per week ??? Drug use: No ??? Sexual activity: Yes Partners: Male control/ protection: IUD Other Topics Concern ??? Not on file Social History Narrative Review of Systems Pertinent items are noted in HPI Objective: BP 108/66 Ht 5' 2 Wt 122 lb BMI 22.31 kg/m2 General appearance: alert, cooperative, no distress Breasts: symmetric, nontender, no masses or discharge, bilateral implants Lungs: breath sounds normal and symmetric; no rales or wheezes Heart: regular rhythm, normal S1 and S2, without murmurs, gallops or rubs Abdomen: soft without mass, non-tender, with normal bowel sounds Female Genitalia: External: normal Vaginal vault, cx: normal with IUD string seen Uterus: anteverted, non-tender, no CMT Adnexae: Non-tender Mild cul-de-sac tenderness Assessment: Encounter Diagnoses Name Primary? Pelvic pain in female Yes ??? Ovarian cyst, follicular ??? Well woman exam with routine gynecological exam The pelvic pain is much improved, cyst smaller. No need for other intervention at this time. She will monitor Her IUD expires in 4 months Plan: Orders Placed This Encounter ??? MAMMO BILAT SCREENING Do Not schedule. Standing Status: Future Standing Expiration Date: 11/06/2019 Order Specific Question: Reason for Exam Answer: screening Order Specific Question: Perform Diagnostic mamm if screening abnormal? Answer: Yes Order Specific Question: Perform US breast if screening mamm abnormal? Answer: Yes Order Specific Question: Perform Breast Biopsy if screening mamm is abnormal? Answer: Yes ??? PAP IGP CERVICAL CANCER SCREENING Mammogram pending F/U for IUD replacement in 4 months, premedicate with NSAIDs F/U sooner if pelvic pain recurs ESS PROFESSIONAL documented in this encounter Plan of Treatment Scheduled Orders Name Type Priority Associated Diagnoses Orde r Schedule MAMMO BILAT SCREENING Imaging Routine Well woman exam with routine gynecological exam 1 Occurrences starting 11/06/2018 until 11/06/2019 documented as of this encounter Procedures Procedure Name Priority Date/Time Associated Diagnosis Comments PAP IGP CERVICAL CANCER SCREENING Routine 11/06/2018 11:49 AM FITNESS PROFESSIONAL Well woman exam with routine gynecological exam PAP IG LB+HPV HR RFLX 16,18 Routine 11/06/2018 11:49 AM FITNESS PROFESSIONAL Well woman exam with routine gynecological exam documented in this encounter Results * PAP IG LB+HPV HR RFLX 16,18 (11/06/2018 11:49 AM FITNESS PROFESSIONAL) Diagnosis [facility] INSURANCE BILL Comment:NEGATIVE FOR INTRAEP ITHELIAL LESION OR MALIGNANCY. Specimen Adequacy [facility] INSURANCE BILL Comment: Satisfactory for evaluation. ??Endocervical and/or squamous metaplastic cells (endocervical component) are present. Clinician Provided ICD10 [facility] INSURANCE BILL Comment: R10.2 N83.00 Z01.419 Performed by [facility] INSURANCE BILL Comment:Genaro Terrell isory Dynamo Tender (ASCP) Comment . [facility] INSURANCE BILL Note [...] system. Human papillomavirus High Risk Negative Negative [facility] INSURANCE BILL Comment: This high-risk HPV test detects thirteen high-risk types (16/18/31/33/35/39/45/51/52/56/58/59/68) without differentiation. ?. 11/06/2018 11:4 9 AM FITNESS PROFESSIONAL 11/07/2018 Narrative [facility] INSURANCE BILL - 11/08/2018 5:10 PM FITNESS PROFESSIONAL No. of containers..01 ThinPrep Vial Resulting Agency Comment [facility] Uriah Tobin [place] ??Uriah CHEN [id number] Rober Cardona MD LAB - PATHOLOGY/CYTO LOGY ORDERABLES [facility] INSURANCE BILL [address] [place] [address] * PAP IGP CERVICAL CANCER SCREENING (11/06/2018 11:49 AM FITNESS PROFESSIONAL) Age Gdln ACOG Testing 30-65 [facility] INSURANCE BILL PART OF UTERINE CERVIX / Unknown 11/06/2018 11:49 AM FITNESS PROFESSIONAL 11/07/2018 Narrative [facility] INSURANCE BILL - 11/08/2018 5:10 PM FITNESS PROFESSIONAL No. of containers..01 ThinPrep Vial Resulting Agency Comment [facility] Uriah Tobin [place] ??Uriah CHEN [id number] Rober Cardona MD LAB - PATHOLOGY/CYTO LOGY ORDERABLES Performing Organization Address City/[facility]/ZIP Co de Phone Number [facility] INSURANCE BILL [address] [place] [address] documented in this encounter Visit Diagnoses Diagnosis Pelvic pain in female- Primary Unspecified symptom associated with female genital organs Ovarian cyst, follicular Follicular cyst of ovary Well woman exam with routine gynecological exam Routine gynecological examination documented in this encounter Care Teams Computer Forensic Examiner Relationship Specialty Start Date End Date Jesus Alberto Smith MD [address] [place] [address] PCP - General Internal Medicine 08/30/16 Rober Cardona MD [address] [place] [phone] Color Adviser Obstetrics and Gynecology 08/27/16 documented as of this encounter
--- OUTSIDE RECORDS SUMMARY | 2024-10-06 07:02 | XMS_ITS | Encounter Summary ---
Author Organization [facility] Address [address] [place] [address] Care Team Providers Care Roll Repairer Name Role Phone Rober Cardona MD Unavailable [phone] Jesus Alberto Smith MD Primary Care Provider Unavailabl e Reason for Visit * Reason Comments Well Women Exam Encounter Details Date Type Department Care Team (Late st Contact Info) Description 08/30/2016 5:00 PM REGULATORY ADMINISTRATOR Office Visit [facility] Medical [facility] - BLOCK SAW OPERATOR [address] [place] [address], [address] [place] [phone] Rober Cardona MD [address] [place] [address] [place] [phone] IUD contraception (Primary Dx); Well woman exam with routine gynecological exam Social History Tobacco Use Types Packs/Day Years Used Date Smoking Tobacco: Never Alcohol Use Standard Drinks/Week Comments Yes 2 (1 standard drink = 0.6 oz pur e alcohol) Sex and Gender Information Value Date Recorded Sex Assigned at Not on file Gender Identity Not on file Sexual Orientation Not on file documented as of this encounter Last Filed Vital Signs Vital Sign Reading Time Taken Comments Blood Pressure 104/70 08/30/2016 4:28 PM REGULATORY ADMINISTRATOR Pulse - - Temperature - - Respiratory Rate - - Oxygen Saturation - - Inhaled Oxygen Concentration - - Weight 54.9 kg (121 lb) 08/30/2016 4:28 PM REGULATORY ADMINISTRATOR Height 157.5 cm (5' 2 ) 08/30/2016 4:28 PM REGULATORY ADMINISTRATOR Body Mass Index 22.13 08/30/2016 4:28 PM REGULATORY ADMINISTRATOR documented in this encounter Progress Notes * Rober Cardona MD - 08/30/2016 4:37 PM CST HISTORY Karen Medeiros is a 45 y.o. female, No LMP recorded. Patient has had an implant.,(IUD) here for a well woman exam. Patient has no gynecological issues or concerns. Last Pap: normal Last mammogram: approximate date 2y and was normal Menses: none with MIRENA . Additional information History Sexual Activity ??? Sexual activity: Yes ??? Partners: Male ??? control/ protection: IUD Other pertinent DIGITAL CARTOGRAPHIC TECHNICIAN history: - Other pertinent history: Current Outpatient Prescriptions Medication Sig Dispense Refill ??? levonorgestrel (MIRENA, 52 MG,) 20 MCG/24HR IUD 1 Device by Intrauterine route as directed Insertion Date: 02/22/2014 1 Device ??? zolpidem (AMBIEN) 10 MG tablet TK 1 T PO QD HS PRF SLEEP 2 No current facility-administered medications for this visit. Allergies Allergen Reactions ??? Nsaids Past Medical History Diagnosis Date ??? Homozygous MTHFR mutation C677T ??? IUD contraception 02/22/2014 Mirena 02/22/14 Past Surgical History Procedure Laterality Date ??? Breast augmentation No family history on file. Social History Occupational History ??? Not on file. Social History Main Topics ??? Smoking status: Never Smoker ??? Smokeless tobacco: Not on file ??? Alcohol use: 1.2 - 2.4 oz/week 2 - 4 Alcoholic drink(s) per week ??? Drug use: No ??? Sexual activity: Yes Partners: Male control/ protection: IUD OB History Para Term AB TAB SAB Ectopic Multiple Living 4 4 4 4 Review of Systems Pertinent items are noted in HPI EXAMINATION BP 104/70 Wt 121 lb BMI 22.13 kg/m2 General Appearance: alert, cooperative, no distress Neck: No masses, thyroid not enlarged. Lymph Nodes: No cervical, axillary, or inguinal adenopathy. Breasts: bilateral implants- symmetric, nontender, no masses or discharge Lungs: breath sounds normal and symmetric; no rales or wheezes Heart: regular rhythm, normal S1 and S2, without murmurs, gallops or rubs Abdomen: soft without mass, non-tender, with normal bowel sounds Pelvic: Vulva and vagina appear normal. Bimanual exam reveals normal uterus and adnexa. External genitalia: normal general appearance Urinary system: urethral meatus normal Vaginal: normal mucosa without prolapse or lesions, normal without tenderness, induration or massesand normal rugae Cervix: normal appearance Adnexa: normal bimanual exam Uterus: normal single, nontender Rectal: - Extremities: no clubbing, cyanosis or edema ASSESSMENT Normal healthy adult female. Encounter Diagnoses Name Primary? IUD contraception Yes ??? Well woman exam with routine gynecological exam Doing very well. PLAN See orders, medications, patient instructions. and Breast self-exam technique reviewed. Patient encouraged to perform monthly. Orders Placed This Encounter ??? MAMMO SCREENING DIGITAL IMAGE BILAT ??? PAP IGP CERVICAL CANCER SCREENING (PO REF LAB) IUD good until 02/2019 LATORY ADMINISTRATOR documented in this encounter Plan of Treatment Not on file documented as of this encounter Procedures Procedure Name Priority Date/Time Associated Diagnosis Comments PAP IGP CERVICAL CANCER SCREENING Routine 08/30/2016 4:56 PM REGULATORY ADMINISTRATOR Well woman exam with routine gynecological exam PAP IG LB+HPV HR RFLX 16,18 Routine 08/30/2016 4:56 PM REGULATORY ADMINISTRATOR Well woman exam with routine gynecological exam documented in this encounter Results * PAP SMEAR IG HPV HR RFLX 16/18 (PO REF LAB) (08/30/2016 4:56 PM REGULATORY ADMINISTRATOR) Diagnosis [facility] ACCOUNT BILL Comment:NEGATIVE FOR INTRAEP ITHELIAL LESION AND MALIGNANCY. Specimen Adequacy [facility] ACCOUNT BILL Comment: Satisfactory for evaluation. ??Endocervical and/or squamous metaplastic cells (endocervical component) are present. Clinician Provided ICD10 [facility] ACCOUNT BILL Comment: Z97.5 Z01.419 Performed by [facility] ACCOUNT BILL Comment:Randy Hutson totechnologist (ASC) Comment . [facility] ACCOUNT BILL Note [facility] [...] Human papillomavirus High Risk Negative Negative [facility] ACCOUNT BILL Comment: This high-risk HPV test detects thirteen high-risk types (16/18/31/33/35/39/45/51/52/56/58/59/68) without differentiation. ?. 08/30/2016 4:56 PM REGULATORY ADMINISTRATOR 08/30/2016 Narrative [facility] ACCOUNT BILL - 09/01/2016 9:07 PM REGULATORY ADMINISTRATOR No. of containers..01 CYTYC Thin Prep Vial Resulting Agency Comment [facility] [place] [address] [facility] ??[place] APRIL [phone] Rober Cardona MD LAB - PATHOLOGY/CYTO LOGY ORDERABLES [facility] ACCOUNT BILL [address] [place] [address] * PAP IGP CERVICAL CANCER SCREENING (PO REF LAB) (08/30/2016 4:56 PM REGULATORY ADMINISTRATOR) Age Gdln ACOG Testing 30-65 [facility] ACCOUNT BILL MICROSCOPIC CYTOLOGIC EXAMINATION OF SMEAR OF SPECIMEN FROM FEMALE GENITAL TRACT PREPARED USING PAPANICOLAOU TECHNIQUE / Unknown 08/30/2016 4:56 PM REGULATORY ADMINISTRATOR 08/30/2016 Narrative [facility] ACCOUNT BILL - 09/01/2016 9:07 PM REGULATORY ADMINISTRATOR No. of containers..01 CYTYC Thin Prep Vial Resulting Agency Comment [facility] [place] [address] [facility] ??[place] CHEN [phone] Rober Cardona MD LAB - PATHOLOGY/CYTO LOGY ORDERABLES [facility] ACCOUNT BILL [address] [place] [address] documented in this encounter Visit Diagnoses Diagnosis IUD contraception- Primary Well woman exam with routine gynecological exam Routine gynecological examination documented in this encounter Care Teams Roll Repairer Relationship Specialty Start Date End Date Jesus Alberto Smith MD [address] [place] [address] PCP - General Internal Medicine 08/30/16 Rober Cardona MD [address] [place] [phone] Substation Operator Chief Obstetrics and Gynecology 08/27/16 documented as of this encounter
--- OUTSIDE RECORDS SUMMARY | 2024-10-06 07:02 | XMS_ITS | Referral Summary ---
Author Organization [facility] Address [address] [place] [address] Care Team Providers Care Open Soaper Tender Name Role Phone Rober Cardona MD Unavailable [phone] Jesus Alberto Smith MD Primary Care Provider Unavailabl e Source Comments [facility],non-owned Affiliates and Associated Physician Practices is amultiple site organization consisting of ambulatory clinics and hospital sitesin [place], [place], [place] and [place]. This disclosure is being madepursuant to the Care Everywhere program and may not contain all information available regarding this patient. Last updated 18.[facility] Allergies Active Allergy Reactions Criticality Noted Date Comments Ibuprofen Rash Medium 01/09/2019 Medications * Be aware that medications may not be up to date on this document. Alwaysverify current medications with the patient. Medication Sig Dispensed Refills Start Date End Date Status zolpidem (AMBIEN) 10 MG tablet TK 1 T PO QD HS PRF SLEEP 2 07/24/2016 Active ALPRAZolam (XANAX) 0.25 MG tablet Take 0.25 mg by mouth 2 times daily as needed for anxiety 1 10/17/2018 Active levonorgestrel (MIRENA, 52 MG,) 20 MCG/24HR IUD 1 device by Intrauterine route as directed Placed 02/27/19 Active Active Problems Problem Noted Date Diagnosed Date IUD contraception 02/27/2019 Overview (02/27/2019): MIRENA #2 02/27/19 IUD contraception 02/22/2014 Overview (08/27/2016): Mirena 02/22/14 Homozygous MTHFR mutation C677T Social History Tobacco [...] Comments Blood Pressure 110/72 11/21/2020 1:44 PM HELICOPTER MECHANIC Pulse 77 12/05/2019 10:30 AM HELICOPTER MECHANIC Temperature 37.2 ??C (99 ??F) 12/05/2019 10:30 AM HELICOPTER MECHANIC Respiratory Rate 15 12/05/2019 10:30 AM HELICOPTER MECHANIC Oxygen Saturation 99% 12/05/2019 10:30 AM HELICOPTER MECHANIC Inhaled Oxygen Concentration - - Weight 54.2 kg (119 lb 8 oz) 11/21/2020 1:44 PM HELICOPTER MECHANIC Height 157.5 cm (5' 2 ) 11/21/2020 1:44 PM HELICOPTER MECHANIC Body Mass Index 21.86 11/21/2020 1:44 PM HELICOPTER MECHANIC Plan of Treatment Not on file Procedures Procedure Name Priority Date/Time Associated Diagnosis Comments PAP IG LB+HPV APTIMA Routine 11/21/2020 3:05 PM HELICOPTER MECHANIC Well woman exam with routine gynecological exam MAMMOGRAPHY ORDER Routine 11/19/2016 from Last 3 Months or Most Recently Relevant to Health Maintenance Results * PAP IG LB+HPV APTIMA (11/21/2020 3:05 PM HELICOPTER MECHANIC) Diagnosis [facility] ACCOUNT BILL Comment: NEGATIVE FOR INTRAEPITHELIAL LESION OR MALIGNANCY. THIS SPECIMEN WAS RESCREENED PART OF OUR SUPERVISOR ERECTION SHOP PROGRAM. Specimen Adequacy [facility] ACCOUNT BILL Comment:Satisfactory for elena luation. No endocervical component is identified. Clinician Provided ICD10 [facility] ACCOUNT BILL Comment: Z01.419 Z97.5 Performed by [facility] ACCOUNT BILL Comment:Jill Mallory ervisory Sander Portable Machine (ASCP) QC Reviewed by [facility] ACCOUNT BILL Comment:Xiomara Jean ytotechnologist (ASCP) Comment . [facility] ACCOUNT BILL Note [facility] [...] UTERINE CERVIX / Unknown 11/21/2020 3:05 PM HELICOPTER MECHANIC 11/21/2020 Narrative [facility] ACCOUNT BILL - 11/27/2020 1:08 PM HELICOPTER MECHANIC Source.............Cervix No. of containers..01 ThinPrep Vial Resulting Agency Comment Lab Testing performed at: [address] ??[facility] [phone] Rober Cardona MD LAB - PATHOLOGY/CYTO LOGY ORDERABLES [facility] ACCOUNT BILL [address] [place] [address] * MAMMOGRAPHY ORDER (11/19/2016) Anatomical Region Laterality Modality Mammography Rober Cardona MD MAMMO ORDERABLES from Last 3 Months or Most Recently Relevant to Health Maintenance Care Teams Open Soaper Tender Relationship Specialty Start Date End Date Jesus Alberto Smith MD [address] [place] [address] PCP - General Internal Medicine 08/30/16 Rober Cardona MD [address] [place] [phone] Coin Wrapping Machine Operator Obstetrics and Gynecology 08/27/16
--- OUTSIDE RECORDS SUMMARY | 2024-10-06 07:02 | XMS_ITS | Encounter Summary ---
Author Organization [facility] Address [address] [facility] [place] [address] Care Team Providers Care Access Consultant Name Role Phone Rober Butt MD Unavailable [phone] Jesus Alberto Smith MD Primary Care Provider Unavailabl e Reason for Referral * Radiology Services (Routine) - Closed Specialty Diagnoses / Procedures Referred By Contac t Referred To Contact Ultrasound Diagnoses Pelvic pain in female Pelvic mass in female Procedures US PELVIS COMPLETE Rober Butt MD [address] [place] [address] [address] [place] [address] Referral ID Status Reason Start Date Expiration Date Visits Re quested Visits Authorized [id number] Closed 09/19/2018 03/18/2019 1 1 RACT MANAGER Reason for Visit * Reason Comments Pain Pelvic Encounter Details Date Type Department Care Team (Late st Contact Info) Description 09/19/2018 10:20 AM CONTRACT MANAGER Office Visit [facility] Medical [facility] - MASTER BLACK BELT [address] [place] [address], [address] [place] [phone] Rober Butt MD [address] [place] [address] [address] [place] [address] Pelvic pain in female (Primary Dx); Pelvic mass in female; Ovarian cyst, right Social History Tobacco Use Types Packs/Day Years [...] Sign Reading Time Taken Comments Blood Pressure 108/60 09/19/2018 10:19 AM CONTRACT MANAGER Pulse - - Temperature - - Respiratory Rate - - Oxygen Saturation - - Inhaled Oxygen Concentration - - Weight 56.2 kg (124 lb) 09/19/2018 10:19 AM CONTRACT MANAGER Height 157.5 cm (5' 2 ) 09/19/2018 10:19 AM CONTRACT MANAGER Body Mass Index 22.68 09/19/2018 10:19 AM CONTRACT MANAGER documented in this encounter Progress Notes * Rober Butt MD - 09/19/2018 10:22 AM CST Subjective: Karen Mdeeiros is a 48 y.o. No LMP recorded. Patient has had an implant. female who presents for: Pelvic pain. Started last year with intermittent lower abdominal and left pelvic pain which fluctuated. Last week, the pelvic pain got worse, on the left, and pressure when sitting down. Now feels like severe cramps that come and go. Bearing down makes it worse. No DUF, No discharge, normal BMs. Occ. Nausea. No emesis. No Hematuria. No menses with the IUD. Expires 02/2019. Last visit 2 yrs ago. OB History Para Term AB Living 4 4 4 4 SAB TAB Ectopic Multiple Live Births Past Medical History: Diagnosis Date ??? Homozygous MTHFR mutation C677T ??? IUD contraception 02/22/2014 Mirena 02/22/14 Past Surgical History: Procedure Laterality Date ??? Breast Augmentation No family history on file. Current Outpatient Prescriptions Medication Sig Dispense Refill ??? levonorgestrel (MIRENA, 52 MG,) 20 MCG/24HR IUD 1 Device by Intrauterine route as directed Insertion Date: 02/22/2014 1 Device ??? zolpidem (AMBIEN) 10 MG tablet TK 1 T PO QD HS PRF SLEEP 2 No current facility-administered medications for this visit. Allergies Allergen Reactions ??? Nsaids Social History [...] items are noted in HPI Objective: BP 108/60 Ht 5' 2 Wt 124 lb BMI 22.68 kg/m2 General appearance: alert, cooperative, no distress Back: No CVAT Lungs: breath sounds normal and symmetric; no rales or wheezes Heart: regular rhythm, normal S1 and S2, without murmurs, gallops or rubs Abdomen: soft without mass, non-tender, with normal bowel sounds External genitalia: normal general appearance Urinary system: urethral meatus normal Vaginal: normal mucosa without prolapse or lesions, normal without tenderness, induration or massesand normal rugae Cervix: IUD string visualized Adnexa: extremely tender mass behind the uterus, Severe tenderness -- exam halted at that point, unable to get any details Uterus: difficult to examine due to tenderness Assessment: Encounter Diagnoses Name Primary? Pelvic pain in female Yes ??? Pelvic mass in female Severe tenderness with mass in the cul de sac. Needs evaluation VAMSHI with ultrasound. Discussed thefinding and the need for further evaluation. Addendum: U/S reviewed, Cystic mass (2 cysts together) of the right adnexa, either ovarian or tubal (hydrosalpinx) Offered tx medically or surgically with laparoscopy. Medical tx would be OCPs Since she has MTHFR and has taken OCPs successfully in the past, that is not a contraindication, but she can take 81 mg aspirin with the pills to decrease risk Plan: Orders Placed This Encounter ??? US PELVIS COMPLETE Review results after the ultrasound. Orders Placed This Encounter ??? US PELVIS COMPLETE Standing Status: Future Number of Occurrences: 1 Standing Expiration Date: 09/19/2019 Order Specific Question: Exam to be performed? Answer: Per Radiologist protocol ??? norgestimate-ethinyl estradiol (ORTHO-CYCLEN; MONONESSA; PREVIFEM; SPRINTEC) 0.25-35 MG-MCG tablet Sig: Take 1 tablet by mouth once daily Dispense: 2 packet Refill: 2 Start OCPs Start 81 mg aspirin NSAIDs prn for pain F/u 1 month for cyst check and annual/pap F/U sooner if the pain increases. RACT MANAGER documented in this encounter Miscellaneous Notes * Addendum Note - Rober Butt MD - 09/19/2018 12:25 PM CSTAddended by: ROBER BUTT on: 09/19/2018 12:25 PM Modules accepted: Orders RACT MANAGER documented in this encounter Plan of Treatment Not on file documented as of this encounter Results * US PELVIS COMPLETE (10/19/2018 2:02 PM CONTRACT MANAGER) Anatomical Region Laterality Modality Pelvis Ultrasound Narrative 10/19/2018 2:02 PM CONTRACT MANAGER Rober Butt MD ? 10/19/2018 ??2:02 PM SSG MASTER BLACK BELT [place] [employer] COUN[employer] PELVIC ULTRASOUND Pt. Name: Karen Medeiros : ??1970 Exam Date: ?? 09/19/2018 LMP: ??No LMP recorded. Patient has had an implant. Referring Physician: ?? Lilian Butt Reason for Scan: ??Severe pain LLQ Transabdominal: ??No Transvaginal: ??Yes Uterine orientation: ??Normal Uterine measurements: Length 9.30 cm. ? Width ??4.42 cm. ?Height 4.07 cm. ?Volume 78.180 cc Endometrial thickness: ??Midline IUD ? Left Ovary: ?? Length 2.91 cm. ? Width ??2.17 cm. ? Height 2.01 cm. ? Volume 6.646 cc Right Ovary: ?? Length 3.81 cm. ?? Width ??3007 cm. ?? Height 4.17 cm. ?? Volume 25.539 cc Cul de Sac: Bowel with peristalsis visible. Aluminum Pool Installer comments: Right ovarian anechoic masses, 2.4cm and 1.7cm. Color doppler used. Physician Interpretation: ?? Uterus normal with IUD in place and follicles of the right ovary Aluminum Pool Installer: ??Fidelina Pickard, BEAMS, RT(R) Images will be scanned into the record. Interpreting Physician: Lilian Butt ? Rober Butt MD ORDERABLES documented in this encounter Visit Diagnoses Diagnosis Pelvic pain in female- Primary Unspecified symptom associated with female genital organs Pelvic mass in female Abdominal or pelvic swelling, mass or lump, unspecified site Ovarian cyst, right Other and unspecified ovarian cyst Pelvic pain in female- Primary Unspecified symptom associated with female genital organs Pelvic mass in female Abdominal or pelvic swelling, mass or lump, unspecified site documented in this encounter Care Teams Access Consultant Relationship Specialty Start Date End Date Jesus Alberto Smith MD [facility] [address] [place] [address] PCP - General Internal Medicine 08/30/16 Rober Butt MD [facility] [address] [place] [address] Cut Off Man Obstetrics and Gynecology 08/27/16 documented as of this encounter
--- OUTSIDE RECORDS SUMMARY | 2024-10-06 07:02 | XMS_ITS | Encounter Summary ---
Author Organization [facility] Address [address] [place] [address] Care Team Providers Care Fast Brim Pouncer Name Role Phone Rober Cardona MD Unavailable [phone] Jesus Alberto Smith MD Primary Care Provider Unavailabl e Reason for Visit * Reason Comments Ultrasound * Radiology Services (Routine) - Closed Specialty Diagnoses / Procedures Referred By Contac t Referred To Contact Ultrasound Diagnoses Pelvic pain in female Pelvic mass in female Procedures US PELVIS COMPLETE Rober Cardona MD [address] [place] [address] [place] [phone] Referral ID Status Reason Start Date Expiration Date Visits Re quested Visits Authorized [id number] Closed 09/19/2018 03/18/2019 1 1 Encounter Details Date Type Department Care Team (Late st Contact Info) Description 11/06/2018 11:00 AM ADMISSIONS RN OBGYN RADIOLOGY [facility] - REVOLVING FIELD ASSEMBLER [address] [place] [address], [address] [place] [phone] Rober Cardona MD [address] [place] [address] [place] [phone] Ovarian mass ; Ovarian cyst, follicular Social History Tobacco Use Types Packs/Day Years Used Date Smoking Tobacco: Never Smokeless Tobacco: Never Alcohol Use Standard Drinks/Week Comments Yes 2 (1 standard drink = 0.6 oz pur e alcohol) Sex and Gender Information Value Date Recorded Sex Assigned at Not on file Gender Identity Not on file Sexual Orientation Not on file documented as of this encounter Procedure Notes * Fidelina Pickard - 11/06/2018 11:33 AM CSTAssociated Order(s): US PELVIS COMPLETE [facility] REVOLVING FIELD ASSEMBLER [address] [place] PELVIC ULTRASOUND Pt. Name: Karen Medeiros : 1970 Exam Date: 11/06/2018 LMP: No LMP recorded. Patient has had an implant. Referring Physician: Lilian Cardona Reason for Scan: Follow ovarian cysts Transabdominal: No Transvaginal: Yes Uterine orientation: Normal Endometrial thickness: Midline IUD Left Ovary: Length 1.50 cm. Width 2.43 cm. Height 2.47 cm. Volume 4.714 cc Right Ovary: Length 2.36 cm. Width 2.27 cm. Height 1.32 cm. Volume 3.703 cc Cul de Sac: Negative for free fluid Geological Manager comments: Left ovarian complex mass, 1.7cm. Right ovarian anechoic masses, 1.4cm and 0.9cm. Color doppler used. Physician Interpretation: Left ovary with small corpus luteum, the right ovarian cysts are much smaller, IUD in place. Geological Manager: Fidelina Pickard RDMS, RT(R) Images will be scanned into the record. Interpreting Physician: Lilina Cardona SSIONS RN documented in this encounter Plan of Treatment Not on file documented as of this encounter Procedures Procedure Name Priority Date/Time Associated Diagnosis Comments US PELVIS COMPLETE Routine 11/06/2018 11 :54 AM ADMISSIONS RN Ovarian cyst, follicular documented in this encounter Results * US PELVIS COMPLETE (11/06/2018 11:54 AM ADMISSIONS RN) Anatomical Region Laterality Modality Pelvis Ultrasound Narrative 11/06/2018 11:54 AM ADMISSIONS RN Rober Cardona MD ? 11/06/2018 11:54 AM [facility] REVOLVING FIELD ASSEMBLER [address] [place] [facility] PELVIC ULTRASOUND Pt. Name: Karen Medeiros : ??1970 Exam Date: ?? 11/06/2018 LMP: ??No LMP recorded. Patient has had an implant. Referring Physician: ?? Lilian Cardona Reason for Scan: ??Follow ovarian cysts Transabdominal: ??No Transvaginal: ??Yes Uterine orientation: ??Normal Endometrial thickness: ??Midline IUD ? Left Ovary: ?? Length 1.50 cm. ? Width ??2.43 cm. ? Height 2.47 cm. ? Volume 4.714 cc Right Ovary: ?? Length 2.36 cm. ?? Width ??2.27 cm. ?? Height 1.32 cm. ?? Volume 3.703 cc Cul de Sac: Negative for free fluid Geological Manager comments: Left ovarian complex mass, 1.7cm. Right ovarian anechoic masses, 1.4cm and 0.9cm. Color doppler used. Physician Interpretation: ?? Left ovary with small corpus luteum, the right ovarian cysts are much smaller, ??IUD in place. ?? Geological Manager: ??Fidelina Pickard, BEAMS, RT(R) Images will be scanned into the record. Interpreting Physician: Lilian Cardona ? Rober Cardona MD ORDERABLES documented in this encounter Visit Diagnoses Diagnosis Ovarian mass- Primary Unspecified noninflammatory disorder of ovary, fallopian tube, and broad ligament Ovarian cyst, follicular Follicular cyst of ovary documented in this encounter Care Teams Fast Brim Pouncer Relationship Specialty Start Date End Date Jesus Alberto Smith MD [address] [place] [address] PCP - General Internal Medicine 08/30/16 Rober Cardona MD [address] [place] [address] [address] [place] [phone] Undercutter Obstetrics and Gynecology 08/27/16 documented as of this encounter
--- OUTSIDE RECORDS SUMMARY | 2024-10-06 07:02 | XMS_ITS | Clinical Summary ---
Author Organization [facility] Address [address] [place] [address] Care Team Providers Care Tinter Photograph Name Role Phone Rober Cardona MD Unavailable [phone] Jesus Alberto Smith MD Primary Care Provider Unavailabl e Source Comments [facility],non-owned Affiliates and Associated Physician Practices is amultiple site organization consisting of ambulatory clinics and hospital sitesin [place], [place], [place] and [place]. This disclosure is being madepursuant to the Care Everywhere program and may not contain all information available regarding this patient. Last updated 18.[facility] Rkylin Allergies Active Allergy Reactions Criticality Noted Date [...] Comments Blood Pressure 110/72 11/21/2020 1:44 PM LABEL OPERATOR Pulse 77 12/05/2019 10:30 AM LABEL OPERATOR Temperature 37.2 ??C (99 ??F) 12/05/2019 10:30 AM LABEL OPERATOR Respiratory Rate 15 12/05/2019 10:30 AM LABEL OPERATOR Oxygen Saturation 99% 12/05/2019 10:30 AM LABEL OPERATOR Inhaled Oxygen Concentration - - Weight 54.2 kg (119 lb 8 oz) 11/21/2020 1:44 PM LABEL OPERATOR Height 157.5 cm (5' 2 ) 11/21/2020 1:44 PM LABEL OPERATOR Body Mass Index 21.86 11/21/2020 1:44 PM LABEL OPERATOR Plan of Treatment Health Maintenance Due Date Last Done Comments COLOGUARD (AGES 45-75) - COL ON CA SCREENING 1971 COLON MONITORING 1971 COLONOSCOPY - COLON CA SCREENING 1971 CT COLONOGRAPHY - COLON CA SCREENING 1971 Colorectal Cancer Screening 1971 FIT - COLON CA SCREENING 1971 FLEX SIG - COLON CA SCREENING 1971 LIPID TESTING 1971 HIV SCREENING 1986 HEPATITIS C SCREENING 09/04/1989 DTAP/TDAP/TD VACCINES (1 - Tdap) 1990 HEPATITIS B VACCINE (1 of 3 - 19+ 3-dose series) 1990 MAMMOGRAM 11/19/2018 11/19/2016 ZOSTER VACCINE (1 of 2) 2021 DEPRESSION SCREENING 10/10/2023 COVID-19 VACCINE (1 - 2023-2 5 season) 2024 INFLUENZA VACCINE (#1) 2024 08/04/2018 PAP with HPV 11/21/2025 11/21/2020, 11/06/2018, 08/30/2016 HIB VACCINE Aged Out No longer eligi ble based on patient's age to complete this topic HPV VACCINE Aged Out No longer eligi ble based on patient's age to complete this topic MENINGOCOCCAL VACCINE Aged Out No sangeeta amy eligible based on patient's age to complete this topic PNEUMOCOCCAL VACCINE Aged Out No long er eligible based on patient's age to complete this topic Procedures Procedure Name Priority Date/Time Associated Diagnosis Comments PAP IG LB+HPV APTIMA Routine 11/21/2020 3:05 PM LABEL OPERATOR Well woman exam with routine gynecological exam MAMMOGRAPHY ORDER Routine 11/19/2016 from Last 3 Months or Most Recently Relevant to Health Maintenance Results * PAP IG LB+HPV APTIMA (11/21/2020 3:05 PM LABEL OPERATOR) Diagnosis [facility] ACCOUNT BILL Comment: NEGATIVE FOR INTRAEPITHELIAL LESION OR MALIGNANCY. THIS SPECIMEN WAS RESCREENED PART OF OUR PLY CUTTER PROGRAM. Specimen Adequacy [facility] ACCOUNT BILL Comment:Satisfactory for elena luation. No endocervical component is identified. Clinician Provided ICD10 [facility] ACCOUNT BILL Comment: Z01.419 Z97.5 Performed by [facility] ACCOUNT BILL Comment:[facility] Piano Stringer (ASCP) QC Reviewed by [facility] RP ACCOUNT [...] UTERINE CERVIX / Unknown 11/21/2020 3:05 PM LABEL OPERATOR 11/21/2020 Narrative [facility] ACCOUNT BILL - 11/27/2020 1:08 PM LABEL OPERATOR Source.............Cervix No. of containers..01 ThinPrep Vial Resulting Agency Comment Lab Testing performed at: [address] ??[facility] [id number] Rober Cardona MD LAB - PATHOLOGY/CYTO LOGY ORDERABLES [facility] ACCOUNT BILL [address] [place] [address] * MAMMOGRAPHY ORDER (11/19/2016) Anatomical Region Laterality Modality Mammography Rober Cardona MD MAMMO ORDERABLES from Last 3 Months or Most Recently Relevant to Health Maintenance Care Teams Tinter Photograph Relationship Specialty Start Date End Date Jesus Alberto Smith MD [address] [place] [address] PCP - General Internal Medicine 08/30/16 Rober Cardona MD [address] [place] [address] Chemical Radiation Technician Obstetrics and Gynecology 08/27/16
--- OUTSIDE RECORDS SUMMARY | 2024-10-06 07:02 | XMS_ITS | Encounter Summary ---
Author Organization [facility] Address [address] [place] [address] Care Team Providers Care Machinist 2Nd Shift Name Role Phone Unavailable Primary Care Provider Unavailabl e Encounter Details Date Type Department Care Team (Late st Contact Info) Description 08/26/2005 Orders Only [facility] [address] [place] [address] ProviderInés MD Social History Tobacco Use Types Packs/Day Years Used Date Smoking Tobacco: Never Assessed Sex and Gender Information Value Date Recorded Sex Assigned at Not on file Gender Identity Not on file Sexual Orientation Not on file documented as of this encounter Plan of Treatment Not on file documented as of this encounter Procedures Procedure Name Priority Date/Time Associated Diagnosis Comments GROSS + MICRO EXAM VAMSHI 08/26/2005 12 :00 AM ARTIFICIAL MARBLE WORKER documented in this encounter Results * GROSS + MICRO EXAM (08/26/2005 12:00 AM ARTIFICIAL MARBLE WORKER) Result CASE NUMBER [id number] Comment: ORDERING PHYSICIAN ??BROOKLYNN BUTT SPECIMEN TYPE ?Prod of Conception Date ? 08/27/2005 Physician ?Taco Butt Gross Description ? The specimen is received in [...] ??The specimen weighs in total 2 grams. ??Director Digital Catalogue sections are submitted in cassettes A and B. MS saenz Microscopic Exam ? Micro sections reveals primarily hemorrhagic and necrotic decidua with scattered immature chorionic villi and fragments of gestational type endometrium. ?? tissue is not present. GM/bk Diagnosis ? I. ?Products of conception -- ?Products of conception. GM/bk Intensive Care Specialist ? bk Pathologist ?Odilia Grey M.D. [place]. ?08/28/2005 0922 <1> CPT code ? 59406 MISCELLANEOUS SAMPLE S / Unknown 08/26/2005 08/27/2005 7:40 AM ARTIFICIAL MARBLE WORKER Historical Provider LAB - PATHOLOGY/C YTOLOGY ORDERABLES documented in this encounter Visit Diagnoses Not on filedocumented in this encounter
--- OUTSIDE RECORDS SUMMARY | 2024-10-06 07:02 | XMS_ITS | Encounter Summary ---
Author Organization [facility] Address [address] [place] [address] Care Team Providers Care Wardrobe Specialty Worker Name Role Phone Rober Cardona MD Unavailable [phone] Jesus Alberto Smith MD Primary Care Provider Unavailabl e Reason for Visit * Reason Comments Well Women Exam Encounter Details Date Type Department Care Team (Late st Contact Info) Description 11/21/2020 1:30 PM ROLL FORMING MACHINE OPERATOR Office Visit [facility] Medical [facility] - MODEL AND MOLD MAKER PLASTER [address] [place] [address], [address] [place] [phone] Rober Cardona MD [address] [place] [address] [address] [place] [phone] Well woman exam with routine gynecological exam (Primary Dx); IUD contraception Social History Tobacco Use Types Packs/Day Years [...] on file Sexual Orientation Not on file COVID-19 Exposure Response Date Recorded In the last month, have you been in contact with someone who was confirmed or suspected to have Coronavirus / COVID-19? No / Unsure 11/14/2020 12:39 PM ROLL FORMING MACHINE OPERATOR documented as of this encounter Last Filed Vital Signs Vital Sign Reading Time Taken Comments Blood Pressure 110/72 11/21/2020 1:44 PM ROLL FORMING MACHINE OPERATOR Pulse - - Temperature - - Respiratory Rate - - Oxygen Saturation - - Inhaled Oxygen Concentration - - Weight 54.2 kg (119 lb 8 oz) 11/21/2020 1:44 PM ROLL FORMING MACHINE OPERATOR Height 157.5 cm (5' 2 ) 11/21/2020 1:44 PM ROLL FORMING MACHINE OPERATOR Body Mass Index 21.86 11/21/2020 1:44 PM ROLL FORMING MACHINE OPERATOR documented in this encounter Progress Notes * Rober Cardona MD - 11/21/2020 1:50 PM CST [facility] [place] Urogynecology Rober Cardona MD Female Pelvic Medicine & Reconstructive Surgery WELL-WOMAN H&P Karen Medeiros is a 50 year old female, No LMP recorded. Patient has had an implant., here for a well woman exam. Patient has no gynecological issues or concerns. The whole family had Covid 08/2020. All ok. Last Pap: normal Last mammogram: was normal Menses: none with IUD. Additional information Social History Substance and Sexual Activity Sexual Activity Yes ??? Partners: Male ??? control/protection: I.U.D. Other pertinent FOOD SERVICE TRAY ATTENDANT history: none Other pertinent history: Current Outpatient Medications Medication Sig Dispense Refill ??? ALPRAZolam (XANAX) 0.25 MG tablet Take 0.25 mg by mouth 2 times daily as needed for anxiety 1 ??? levonorgestrel (MIRENA, 52 MG,) 20 MCG/24HR IUD 1 device by Intrauterine route as directed Placed 02/27/19 ??? zolpidem (AMBIEN) 10 MG tablet TK 1 T PO QD HS PRF SLEEP 2 No current facility-administered medications for this visit. Allergies Allergen Reactions ??? Advil [Ibuprofen] Rash Past Medical History: Diagnosis Date ??? Homozygous MTHFR mutation [id number] ??? IUD contraception 02/27/2019 MIRENA #2 02/27/19 Past Surgical History: Procedure Laterality Date ??? Breast Augmentation No family history on file. Social History Occupational History ??? Not on file Tobacco Use ??? Smoking status: Never Smoker ??? Smokeless tobacco: Never Used Substance and Sexual Activity ??? Alcohol use: Yes Alcohol/week: 2.0 - 4.0 standard drinks Types: 2 - 4 Alcoholic drink(s) per week Frequency: Monthly or less ??? Drug use: No ??? Sexual activity: Yes Partners: Male control/protection: I.U.D. OB History 4 Para 4 Term 4 AB Living 4 SAB TAB Ectopic Multiple Live Births Review of Systems Pertinent items are noted in the HPI. All other systems were reviewed and are negative EXAMINATION BP 110/72 Ht 5' 2 Wt 119 lb 8 oz BMI 21.86 kg/m2 General Appearance: alert, cooperative, no distress Breasts: symmetric, bilateral subpectoral implants, nontender, no masses or discharge Lungs: breath sounds normal and symmetric; no rales or wheezes Heart: regular rhythm, normal S1 and S2, without murmurs, gallops or rubs Abdomen: soft without mass, non-tender, with normal bowel sounds Pelvic: External genitalia: normal general appearance Urinary system: urethral meatus normal Vaginal: normal mucosa without prolapse or lesions, normal without tenderness, induration or massesand normal rugae Cervix: normal appearance and IUD string visualized Adnexa: normal bimanual exam Uterus: normal single, nontender Extremities: no clubbing, cyanosis or edema ASSESSMENT Normal healthy adult female. Encounter Diagnoses Name Primary? Well woman exam with routine gynecological exam Yes ??? IUD contraception Doing well with MIRENA IUD, good until [address] [facility] was normal PLAN See orders, medications, patient instructions. and Breast self-exam technique reviewed. Patient encouraged to perform monthly. Orders Placed This Encounter ??? MAMMO BILAT SCREENING Standing Status: Future Standing Expiration Date: 11/21/2021 Order Specific Question: Reason for Exam Answer: screen Order Specific Question: Release to patient Answer: Immediate Order Specific Question: Perform Diagnostic mamm if screening abnormal? Answer: Yes Order Specific Question: Perform US breast if screening mamm abnormal? Answer: Yes Order Specific Question: Perform Breast Biopsy if screening mamm is abnormal? Answer: Yes ??? PAP IG LB+HPV APTIMA Order Specific Question: Release to patient Answer: Immediate Order Specific Question: Pap Source? Answer: Cervical Order Specific Question: Collection Method? Answer: Cable-Spatula F/U 1 yr or prn FORMING MACHINE OPERATOR documented in this encounter Plan of Treatment Not on file documented as of this encounter Procedures Procedure Name Priority Date/Time Associated Diagnosis Comments PAP IG LB+HPV APTIMA Routine 11/21/2020 3:05 PM ROLL FORMING MACHINE OPERATOR Well woman exam with routine gynecological exam documented in this encounter Results * PAP IG LB+HPV APTIMA (11/21/2020 3:05 PM ROLL FORMING MACHINE OPERATOR) Diagnosis [facility] ACCOUNT BILL Comment: NEGATIVE FOR INTRAEPITHELIAL LESION OR MALIGNANCY. THIS SPECIMEN WAS RESCREENED PART OF OUR LEGAL RECORDS MANAGER PROGRAM. Specimen Adequacy [facility] ACCOUNT BILL Comment:Satisfactory for elena luation. No endocervical component is identified. Clinician Provided ICD10 [facility] ACCOUNT BILL Comment: Z01.419 Z97.5 Performed by [facility] ACCOUNT BILL Comment:Jill Mallory ermartha Administrative Program Specialist (ASCP) QC Reviewed by [facility] ACCOUNT [...] UTERINE CERVIX / Unknown 11/21/2020 3:05 PM ROLL FORMING MACHINE OPERATOR 11/21/2020 Narrative [facility] ACCOUNT BILL - 11/27/2020 1:08 PM ROLL FORMING MACHINE OPERATOR Source.............Cervix No. of containers..01 ThinPrep Vial Resulting Agency Comment Lab Testing performed at: [facility] ??[facility] CHEN [id number] Rober Cardona MD LAB - PATHOLOGY/CYTO LOGY ORDERABLES [facility] ACCOUNT BILL [address] [place] [address] documented in this encounter Visit Diagnoses Diagnosis Well woman exam with routine gynecological exam- Primary Routine gynecological examination IUD contraception documented in this encounter Care Teams Wardrobe Specialty Worker Relationship Specialty Start Date End Date Jesus Alberto Smith MD [address] [place] [address] PCP - General Internal Medicine 08/30/16 Rober Cardona MD [address] [place] [address] Diesel Dinkey Engineer Obstetrics and Gynecology 08/27/16 documented as of this encounter
--- OUTSIDE RECORDS SUMMARY | 2024-10-06 07:02 | XMS_ITS | Encounter Summary ---
Author Organization [facility] Address [address] [place] [address] Care Team Providers Care Real Estate Photographer Name Role Phone Rober Cardona MD Unavailable Jesus Alberto Smith MD Primary Care Provider Unavailabl e Encounter Details Date Type Department Care Team (Latest Contact Info) Description 11/14/2020 Travel Social History Tobacco Use Types Packs/Day Years [...] COVID-19? No / Unsure 11/14/2020 12:39 PM CERTIFIED CYTOTECHNOLOGIST documented as of this encounter Plan of Treatment Not on file documented as of this encounter Visit Diagnoses Not on filedocumented in this encounter Care Teams Real Estate Photographer Relationship Specialty Start Date End Date Jesus Alberto Smith MD [address] [place] [address] PCP - General Internal Medicine 08/30/16 Rober Cardona MD [address] [place] [address] Hog Stomach Preparer Obstetrics and Gynecology 08/27/16 documented as of this encounter
--- OUTSIDE RECORDS SUMMARY | 2024-10-06 07:02 | XMS_ITS | Encounter Summary ---
Author Organization [facility] Address [address] [place] [address] Care Team Providers Care Cpa Tax Name Role Phone Rober Cardona MD Unavailable [phone] Jesus Alberto Smith MD Primary Care Provider Unavailabl e Reason for Visit * Reason Comments IUD Encounter Details Date Type Department Care Team (Late st Contact Info) Description 02/27/2019 2:10 PM CDT Office Visit [facility] - PARAEDUCATOR [address] [place] [address], [address] [place] [address] Rober Cardona MD [address] [place] [phone] IUD contraception (Primary Dx) Social History Tobacco Use Types [...] Sign Reading Time Taken Comments Blood Pressure 122/62 02/27/2019 2:19 PM CDT Pulse - - Temperature - - Respiratory Rate - - Oxygen Saturation - - Inhaled Oxygen Concentration - - Weight 55.3 kg (122 lb) 02/27/2019 2:19 PM CDT Height 157.5 cm (5' 2 ) 02/27/2019 2:19 PM CDT Body Mass Index 22.31 02/27/2019 2:19 PM CDT documented in this encounter Progress Notes * Rober Cardona MD - 02/27/2019 2:25 PM CDT IUD Removal Note Pre-operative Diagnosis: MIRENA IUD, Post-operative Diagnosis: same Surgeon: Rober Cardona MD Indications: See Pre-op Diagnosis Procedure Details The risks (including infection, bleeding, pain, and uterine perforation) and benefits of the procedure were explained to the patient and verbal informed consent was obtained. The patient was placed in the dorsal lithotomy position. A speculum was inserted in the vagina. Ringed forceps used to graspIUD strings. Mirena IUD was removed intact from uterus. The patient tolerated the procedure well. Condition: Stable Complications: None Subjective: Karen Medeiros is a 48 year old female who presents for insertion of a MIRENA IUD. No LMP recorded. Patient has had an implant. Indication: MIRENA, Desires replacement of MIRENA IUD We have discussed the pros and cons, potential risks and benefits and alternatives. She has received the informational booklet, her questions are answered and she consents to proceed. Review of Systems Pertinent items are noted in HPI Objective: BP 122/62 (BP SITE: RIGHT ARM, BP POSITION: SITTING, BP CUFF SIZE: 12) Ht 5' 2 Wt 122 lb BMI 22.31 kg/m2 Female Genitalia: vagina and cervix normal on speculum exam, uterine size normal, direction: anteverted. IUD Insertion Procedure Note Pre-operative Diagnosis: IUD contraception Post-operative Diagnosis: same Indications: undesired fertility Procedure Details Urine test was not done. The risks (including infection, bleeding, pain, and uterine perforation) and benefits of the procedure were explained to the patient and written informed consent was obtained. Cervix cleansed with Betadine. Uterus sounded to 8 cm. IUD inserted without difficulty. String visible and trimmed. Patient tolerated procedure well. IUD Information: Mirena. Condition: Stable Complications: None Attending Physician Documentation: I was present for or participated in the entire procedure, including opening and closing. Assessment: IUD replacement Plan: Call if experiencing increasing pain, cramps or heavy bleeding, or a foul- smelling discharge, fever> 100.5, chills, nausea or vomiting Follow-up for a string check in 4 weeks. Orders Placed This Encounter ??? ND LEVONORGESTREL IU 52MG Order Specific Question: Was contrecptive device supplied by patient or third green party? Answer: No ??? ND REMOVE INTRAUTERINE DEVICE ??? ND INSERT INTRAUTERINE DEVICE ??? levonorgestrel (MIRENA) IUD 1 device documented in this encounter Plan of Treatment Not on file documented as of this encounter Visit Diagnoses Diagnosis IUD contraception- Primary documented in this encounter Administered Medications Inactive Administered Medications - up to 3 most recent administrations Medication Order MAR Action Action Date Dose Rate Site levonorgestrel (MIRENA) IUD 1 device 1 device, Intrauterine, ONCE, 1 dose, On Tue02/27/19 at 1445 $ Given 02/27/2019 3:13 PM CDT 1 device documented in this encounter Care Teams Cpa Tax Relationship Specialty Start Date End Date Jesus Alberto Smith MD [address] [place] [phone] PCP - General Internal Medicine 08/30/16 Rober Cardona MD [facility] [address] [place] [address] Pattern Keeper Obstetrics and Gynecology 08/27/16 documented as of this encounter
--- OUTSIDE RECORDS SUMMARY | 2024-10-06 07:02 | XMS_ITS | Encounter Summary ---
Author Organization [facility] Address [address] [facility] [facility] [place] [address] Care Team Providers Care Box Cutter Name Role Phone Rober Cardona MD Unavailable Jesus Alberto Smith MD Primary Care Provider Unavailabl e Reason for Visit * Reason Onset Date Comments Follow-up 01/11/2019 Encounter Details Date Type Department Care Team (Late st Contact Info) Description 01/11/2019 Telephone [facility] [address] [phone] Wilma Casillas Follow-up Social History Tobacco Use Types Packs/Day Years [...] on filedocumented in this encounter Care Teams Box Cutter Relationship Specialty Start Date End Date Jesus Alberto Smith MD [address] [place] [address] PCP - General Internal Medicine 08/30/16 Rober Cardona MD [address] [place] [address] Rn Team Leader Obstetrics and Gynecology 08/27/16 documented as of this encounter
--- OUTSIDE RECORDS SUMMARY | 2024-10-06 07:02 | XMS_ITS | Encounter Summary ---
Author Organization [facility] Address [address] [place] [address] Care Team Providers Care Building Architectural Designer Name Role Phone Rober Cardona MD Unavailable [phone] Jesus Alberto Smith MD Primary Care Provider Unavailabl e Reason for Visit * Reason Onset Date Comments Follow-up 12/07/2019 Encounter Details Date Type Department Care Team (Late st Contact Info) Description 12/07/2019 Telephone [facility] [employer] [facility] [address] [place] [address] Hoa Stanley APRN-CNP [address] [place] [address] Follow-up Social History Tobacco Use Types Packs/Day Years Used Date Smoking Tobacco: Never Smokeless Tobacco: Never Alcohol Use Standard Drinks/Week Comments Yes 2 (1 standard drink = 0.6 oz pur e alcohol) Sex and Gender Information Value Date Recorded Sex Assigned at Not on file Gender Identity Not on file Sexual Orientation Not on file documented as of this encounter Miscellaneous Notes * Telephone Encounter - Hoa Landers APRN-CNP - 12/07/2019 1:48 PM CST Courtesy follow-up phone call made to patient. Patient states she feels so much better and is taking the Tamiflu CANDICE Goodson 12/07/2019 1:49 PM T SINKER documented in this encounter Plan of Treatment Not on file documented as of this encounter Visit Diagnoses Not on filedocumented in this encounter Care Teams Building Architectural Designer Relationship Specialty Start Date End Date Jesus Alberto Smith MD [address] [place] [address] PCP - General Internal Medicine 08/30/16 Rober Cardona MD [address] [place] [address] Inspector Welded Parts Obstetrics and Gynecology 08/27/16 documented as of this encounter
--- OUTSIDE RECORDS SUMMARY | 2024-10-06 07:02 | XMS_ITS | Encounter Summary ---
Author Organization [facility] Address [address] [place] [address] Care Team Providers Care Derrick Operator Name Role Phone Rober Cardona MD Unavailable [phone] Jesus Alberto Smith MD Primary Care Provider Unavailabl e Reason for Referral * Radiology Services (Routine) - Closed Specialty Diagnoses / Procedures Referred By Contac t Referred To Contact Ultrasound Diagnoses Ovarian cyst, follicular Procedures US PELVIS COMPLETE Rober Cardona MD [address] [place] [address] [place] [phone] Referral ID Status Reason Start Date Expiration Date Visits Re quested Visits Authorized [id number] Closed 11/06/2018 05/05/2019 1 1 COMMUNICATIONS LINE MECHANIC Encounter Details Date Type Department Care Team (Late st Contact Info) Description 11/06/2018 Orders Only [facility] Medical [facility] - BUFFING LINE SET UP WORKER [address] [place] [address], [address] [place] [phone] Rober Cardona MD [address] [place] [address] [address] [place] [phone] Ovarian cyst, follicular Social History Tobacco Use [...] * US PELVIS COMPLETE (11/06/2018 11:54 AM TELECOMMUNICATIONS LINE MECHANIC) Anatomical Region Laterality Modality Pelvis Ultrasound Narrative 11/06/2018 11:54 AM TELECOMMUNICATIONS LINE MECHANIC Rober Cardona MD ? 11/06/2018 11:54 AM [facility] BUFFING LINE SET UP WORKER RADHA RIDING INSTRUCTOR PELVIC ULTRASOUND Pt. Name: Karen Medeiros : [...] Cul de Sac: Negative for free fluid Side Stitcher comments: Left ovarian complex mass, 1.7cm. Right ovarian anechoic masses, 1.4cm and 0.9cm. Color doppler used. Physician Interpretation: ?? Left ovary with small corpus luteum, the right ovarian cysts are much smaller, ??IUD in place. ?? Side Stitcher: ??Fidelina Pickard RDGA, RT(R) Images will be scanned into the record. Interpreting Physician: Lilian Cardona ? Rober Cardona MD US ORDERABLES documented in this encounter Visit Diagnoses Diagnosis Ovarian mass- Primary Unspecified noninflammatory disorder of ovary, fallopian tube, and broad ligament Ovarian cyst, follicular Follicular cyst of ovary Ovarian cyst, follicular- Primary Follicular cyst of ovary documented in this encounter Care Teams Derrick Operator Relationship Specialty Start Date End Date Jesus Alberto Smith MD [address] [place] [phone] PCP - General Internal Medicine 08/30/16 oRber Cardona MD [address] [facility] [address] [place] [address] Fryer Line Helper Obstetrics and Gynecology 08/27/16 documented as of this encounter
--- OUTSIDE RECORDS SUMMARY | 2024-10-06 07:02 | XMS_ITS | Encounter Summary ---
Author Organization [facility] Health Address [address] [facility] [place] [address] Care Team Providers Care Merchandiser Name Role Phone Rober Cardona MD Unavailable [phone] Encounter Details Date Type Department Care Team (Late st Contact Info) Description 08/27/2016 Orders Only [facility] - RN MEDICAL INPATIENT SERVICES [address] [place] [address], [address] [place] [phone] Rober Cardona MD [address] [place] [address] [place] [phone] Social History Tobacco Use Types Packs/Day Years Used Date Smoking Tobacco: Never Assessed Sex and Gender Information Value Date Recorded Sex Assigned at Not on file Gender Identity Not on file Sexual Orientation Not on file documented as of this encounter Plan of Treatment Not on file documented as of this encounter Visit Diagnoses Not on filedocumented in this encounter Care Teams Merchandiser Relationship Specialty Start Date End Date Rober Cardona MD [address] [place] [address] [place] [phone] Global Marketing Operations Manager Obstetrics and Gynecology 08/27/16 documented as of this encounter
--- OUTSIDE RECORDS SUMMARY | 2024-10-06 07:02 | XMS_ITS | Encounter Summary ---
Author Organization [facility] Address [address] [place] [address] Care Team Providers Care Gate Operator Name Role Phone Rober Cardona MD Unavailable [phone] Jesus Alberto Smith MD Primary Care Provider Unavailabl e Reason for Visit * Reason Comments Ultrasound Encounter Details Date Type Department Care Team (Latest Contact Info) Description 09/19/2018 11:00 AM STOCK WORKER AND DELIVERER OBGYN RADIOLOGY [facility] - [employer] SENIOR OFFICER [address] [place] [address], [address] [place] [address] Pelvic pain in female ; Pelvic mass in female Social History Tobacco Use Types Packs/Day Years [...] encounter Procedure Notes * Fidelina Pickard - 09/19/2018 11:27 AM CSTAssociated Order(s): US PELVIS COMPLETE [facility] [place] NAV[employer] SENIOR OFFICER PAL[place]ALE MANAGER CREDIT PELVIC ULTRASOUND Pt. Name: Karen Medeiros : 1970 Exam Date: 09/19/2018 LMP: No LMP recorded. Patient has had an implant. Referring Physician: Lilian Cardona Reason for Scan: Severe pain LLQ Transabdominal: No Transvaginal: Yes Uterine orientation: Normal Uterine measurements: Length 9.30 cm. Width 4.42 cm. Height 4.07 cm. Volume 78.180 cc Endometrial thickness: Midline IUD Left Ovary: Length 2.91 cm. Width 2.17 cm. Height 2.01 cm. Volume 6.646 cc Right Ovary: Length 3.81 cm. Width 3007 cm. Height 4.17 cm. Volume 25.539 cc Cul de Sac: Bowel with peristalsis visible. Agricultural Research Engineer comments: Right ovarian anechoic masses, 2.4cm and 1.7cm. Color doppler used. Physician Interpretation: Uterus normal with IUD in place and follicles of the right ovary Agricultural Research Engineer: Fidelina Pickard RDMS, RT(R) Images will be scanned into the record. Interpreting Physician: Lilian Cardona K WORKER AND DELIVERER documented in this encounter Plan of Treatment Not on file documented as of this encounter Procedures Procedure Name Priority Date/Time Associated Diagnosis Comments US PELVIS COMPLETE Routine 10/19/2018 2: 02 PM STOCK WORKER AND DELIVERER Pelvic pain in female Pelvic mass in female documented in this encounter Results * US PELVIS COMPLETE (10/19/2018 2:02 PM STOCK WORKER AND DELIVERER) Anatomical Region Laterality Modality Pelvis Ultrasound Narrative 10/19/2018 2:02 PM STOCK WORKER AND DELIVERER Rober Cardona MD ? 10/19/2018 ??2:[address] [facility] NAV[employer] SENIOR OFFICER PALMDALE MANAGER CREDIT PELVIC ULTRASOUND Pt. Name: Karen Medeiros : ??1970 Exam Date: ?? 09/19/2018 LMP: ??No LMP recorded. Patient has had an implant. Referring Physician: ?? Lilian Cardona Reason for Scan: ??Severe pain LLQ Transabdominal: [...] Cul de Sac: Bowel with peristalsis visible. Agricultural Research Engineer comments: Right ovarian anechoic masses, 2.4cm and 1.7cm. Color doppler used. Physician Interpretation: ?? Uterus normal with IUD in place and follicles of the right ovary Agricultural Research Engineer: ??Fidelina Pickard, BEAMS, RT(R) Images will be scanned into the record. Interpreting Physician: Lilian Cardona ? Rober Cardona MD ORDERABLES documented in this encounter Visit Diagnoses Diagnosis Pelvic pain in female- Primary Unspecified symptom associated with female genital organs Pelvic mass in female Abdominal or pelvic swelling, mass or lump, unspecified site documented in this encounter Care Teams Gate Operator Relationship Specialty Start Date End Date Jesus Alberto Smith MD [address] [place] [address] PCP - General Internal Medicine 08/30/16 Rober Cardona MD [facility] [address] [place] [phone] Forestry Aid Obstetrics and Gynecology 08/27/16 documented as of this encounter
--- OUTSIDE RECORDS SUMMARY | 2024-10-06 07:02 | XMS_ITS | Encounter Summary ---
Author Organization [facility] Address [address] [facility] [place] [address] Care Team Providers Care Hand Endband Cutter Name Role Phone Rober Cardona MD Unavailable [phone] Jesus Alberto Smith MD Primary Care Provider Unavailabl e Encounter Details Date Type Department Care Team (Late st Contact Info) Description 11/29/2018 Orders Only [facility] - FORM BLOCK MAKER [address] [place] [address], [address] [place] [phone] Rober Cardona MD [address] [place] [address] [place] [phone] Well woman exam with routine gynecological [...] as of this encounter Visit Diagnoses Diagnosis Well woman exam with routine gynecological exam Routine gynecological examination documented in this encounter Care Teams Hand Endband Cutter Relationship Specialty Start Date End Date Jesus Alberto Smith MD [address] [place] [address] [place] [phone] PCP - General Internal Medicine 08/30/16 Rober Cardona MD [address] [place] [address] [place] [phone] Electrician'S Helper Obstetrics and Gynecology 08/27/16 documented as of this encounter
--- OUTSIDE RECORDS SUMMARY | 2024-10-06 07:03 | XMS_ITS | Encounter Summary ---
Author Organization [facility] Group Address [address] [facility] [address] [place] [address] Care Team Providers Care Linux Network Engineer Name Role Phone Kristen Mancera MD Unavailable Kacey Gonzalez MD Primary Care Provider [phone] Lewis Sunshine MD Unavailable [phone] Reason for Visit * Reason Onset Date Comments Medical Question/Miscellaneous 04/28/2023 Encounter Details Date Type Department Care Team (Late st Contact Info) Description 04/28/2023 Telephone [facility] Medical [facility] [address] [address] Kacey Gonzalez MD [address] [facility] [address], [place] [address] Medical Question/Miscellaneous Social History Tobacco Use Types Packs/Day Years Used Date Smoking Tobacco: Never Smokeless Tobacco: Never AUDIT-C Answer Date Recorded Q1: How often do you have a drink containing alcohol? 4 or more times a week 01/11/2023 Q2: How many drinks containi ng alcohol do you have on a typical day when you are drinking? 1 or 2 Q3: How often do you have si x or more drinks on one occasion? Never 01/11/2023 PHQ-2 Answer Date Recorded PHQ-2 Total Score (If total score is 3 or more points, staff should administer the PHQ-9) 0 05/04/2023 Personal Safety Answer Date Recorded Have you ever been in or are you currently in a harmful physical or emotional relationship or is someone making you feel afraid or unsafe? Denies 01/11/2023 Comments No Sex and Gender Information Value Date Recorded Sex Assigned at Not on file Legal Sex Female 10:19 PM EQUIPMENT MECHANIC SPECIALIST Gender Identity Not on file Sexual Orientation Not on file documented as of this encounter Miscellaneous Notes * Telephone Encounter - Juan J Kumar - 04/28/2023 3:46 PM CDT Spoke with patient and put her back on the schedule per Vesna. I did let her know she will need to establish care with a new PCP and Taylor will talk to her about it during that appt * Telephone Encounter - Nereida Trevino - 04/28/2023 9:32 AM CDT Medical Question/Miscellaneous Caller???s Concern: Patient received a call cancelling her physical with Taylor Whittington on 05/04. Sheis wanting to know why it was cancelled if it is within [address] Gonzalez's disengagement. Attempted to warm transfer and was told to send a task to Gonzalez pool Caller???s Call back #: [phone] Does message need to be routed? Yes-Action Needed documented in this encounter Plan of Treatment Not on file documented as of this encounter Visit Diagnoses Not on filedocumented in this encounter Care Teams Linux Network Engineer Relationship Specialty Start Date End Date Kacey Gonzalez MD PCP - General Family Medicine 04/07/21 06/08/23 Kristen Mancera MD Medical Oncologist/It Instructor Medical Oncology 11/21/20 Lewis Sunshine MD [address] [place] [address] Surgeon Orthopedic Surgery 01/05/23 documented as of this encounter
--- OUTSIDE RECORDS SUMMARY | 2024-10-06 07:03 | XMS_ITS | Encounter Summary ---
Author Organization [facility] Healthcare Address [address] [place] [address] Care Team Providers Care Specialty Foods Cook Name Role Phone Kristen Mancera MD Unavailable Lewis Sunshine MD Unavailable [phone] Ana Pavon NP Primary Care Provider Reason for Visit * Reason Comments [facility]. States that her last annual WWE was 11/21/2020 Encounter Details Date Type Department Care Team (Late st Contact Info) Description 09/12/2023 2:30 PM PORT CRANE OPERATOR Office Visit [facility] Group Women's [facility] at [address] [phone] Susan Anderson MD [address] [place] [phone] Well woman exam (Primary Dx); IUD contraception; Hormone replacement therapy (HRT) Social History Tobacco Use Types Packs/Day Years Used Date Smoking Tobacco: Never Passive Smoke Exposure: Never Smokeless Tobacco: Never Humiliation, Afraid, Rape, and Kick questionnair e Answer Date Recorded Within the last year, have y ou been afraid of your partner or ex-partner? No 09/12/2023 Within the last year, have y ou been humiliated or emotionally abused in other ways by your partner or ex-partner? No Within the last year, have y ou been kicked, hit, slapped, or otherwise physically hurt by your partner or ex-partner? No 09/12/2023 Within the last year, have y ou been raped or forced to have any kind of sexual activity by your partner or ex-partner? No 09/12/2023 AUDIT-C Answer Date Recorded Q1: How often [...] PHQ-2 Answer Date Recorded PHQ-2 Total Score 0 09/12/2023 Personal Safety Answer Date Recorded Have you ever been in or are you currently in a harmful physical or emotional relationship or is someone making you feel afraid or unsafe? Denies 01/11/2023 Comments No Sex and Gender Information Value Date Recorded Sex Assigned at Not on file Legal Sex Female 10:19 PM PORT CRANE OPERATOR Gender Identity Not on file Sexual Orientation Not on file documented as of this encounter Last Filed Vital Signs Vital Sign Reading Time Taken Comments Blood Pressure 120/78 09/12/2023 3:39 PM PORT CRANE OPERATOR Pulse 75 09/12/2023 3:39 PM PORT CRANE OPERATOR Temperature - - Respiratory Rate - - Oxygen Saturation - - Inhaled Oxygen Concentration - - Weight 54.7 kg (120 lb 9.6 oz) 09/12/2023 3:39 P M PORT CRANE OPERATOR Height 157.5 cm (5' 2 ) 09/12/2023 3:39 PM PORT CRANE OPERATOR Body Mass Index 22.06 09/12/2023 3:39 PM PORT CRANE OPERATOR documented in this encounter Progress Notes * Susan Anderson MD - 09/12/2023 2:30 PM CST Images from the original note were not included. Well Woman Exam Subjective: Pateint presents for: New Patient (Pt is here to establish care and annual exam. /States that her last annual WWE was 11/21/2020) Karen Medeiros is a 53 y.o. year old female who presents for a well woman exam. No complaints. In the past 2 years she has been having periods She is changing q day. Needs only panty liners She went to a medical spa and was told that she should be on progesterone and testosterone to help her gain muscle. She wants to know if this is the right treatment. Contraception:Mirena IUD. Patient's last menstrual period was 09/12/2023 (exact date). Menstrual History: Menarche Age: 15 years Patient's last menstrual period was 09/12/2023 (exact date). Period Cycle (Days): 29 Period Duration (Days): 5-6 Period Pattern: Regular Menstrual Flow: Moderate Menstrual Control: Other (usually nothing.) Dysmenorrhea: None Sexual History: Sexual History Age of First Sexual Encounter: 17 years # of sexual partners in lifetime: 2 Gender of sexual partners: Men Sexually Transmitted Infection History: None Date Last Tested for Sexually Transmitted Infection if Known: (Unknown) Sexual Assault: No OB History 7 Para 4 Term 4 AB 3 Living 4 SAB 3 IAB Ectopic Multiple Live Births 4 # Outcome Date GA Labor/2nd Weight Sex Delivery Anes PTL Lv A1 A5 1 SAB 2 SAB 3 SAB 4 Term 10/1996 3.714 kg (8 lb 3 oz) M Vag-Spont Epidural Living Location: Other 5 Term 12/1998 3.232 kg (7 lb 2 oz) M Vag-Spont Epidural Living Location: Other 6 Term 09/2000 3.544 kg (7 lb 13 oz) F Vag-Spont Epidural Living Location: Other 7 Term 06/2006 3.402 kg (7 lb 8 oz) F Vag-Spont Epidural Living Location: Other Ros:- negative Do you want to be in the next year?no Lab: Pap:h/o abnl at age 22 normal since Labs with pcp Kathryn:due Colonoscopy:cologuard 2021 BMD: Gardasil:did not have. Objective: BP 120/78 (BP Location: Right arm, Patient Position: Sitting) Pulse 75 Ht 157.5 cm (5' 2 ) Wt120 lb 9.6 oz (54.7 kg) LMP 09/12/2023 (Exact Date) BMI 22.06 kg/m?? Physical Exam Vitals reviewed. Exam conducted with a screen making supervisor present. Constitutional: Appearance: Normal appearance. She is normal weight. HENT: Head: Normocephalic and atraumatic. Cardiovascular: Rate and Rhythm: Normal rate and regular rhythm. Pulmonary: Effort: Pulmonary effort is normal. Breath sounds: Normal breath sounds. No wheezing or rhonchi. Chest: Breasts: Right: Normal. No bleeding, mass, nipple discharge, skin change or tenderness. Left: Normal. No bleeding, mass, nipple discharge, skin change or tenderness. Abdominal: General: There is no distension. Palpations: Abdomen is soft. There is no mass. Tenderness: There is no abdominal tenderness. Hernia: No hernia is present. Comments: No hepatomegaly or splenomegaly Genitourinary: Pelvic exam was performed with patient supine. Rectum normal, vagina normal, uterus normal and normal vulva. Right labia: normal. Left Labia: normal. Right adnexa: normal. Left adnexa: normal. Cervix: visible IUD strings. Cervix: Normal exam. Genitourinary Comments: BUS with in normal limits Dark blood in vault Right inguinal canal: normal. Left inguinal canal: normal. Musculoskeletal: General: No swelling or tenderness. Right lower leg: No edema. Left lower leg: No edema. Lymphadenopathy: Head: Right side of head: No submental or submandibular adenopathy. Left side of head: No submental or submandibular adenopathy. Cervical: No cervical adenopathy. Upper Body: Right upper body: No supraclavicular or axillary adenopathy. Left upper body: No supraclavicular or axillary adenopathy. Lower Body: No right inguinal adenopathy. No left inguinal adenopathy. Skin: General: Skin is warm and dry. Findings: No bruising. Neurological: Mental Status: She is alert and oriented to person, place, and time. Psychiatric: Mood and Affect: Mood normal. Behavior: Behavior normal. Assessment and Plan: Normal exam. Diagnoses and all orders for this visit: Well woman exam (Primary) Assessment & Plan: Pap done. RTO 12m. I will send the results to the portal. If she has not heard in a week, to call the office. Orders: - Pap and HPV, reflex to HPV Genotypes; Future IUD contraception Assessment & Plan: Due out 2023 Hormone replacement therapy (HRT) Assessment & Plan: We discussed the natural course of progesterone throughout the month and how it is hard for me to comment on her labs not knowing when she had it drawn. I doubts she needs We discussed the benefits of testosterone. Will check cmp and lp yearly. Orders: - Lipid panel; Future Recommended screenings and preventive care discussed: Breast cancer: Breast Self Exam encouraged. Pap and HR HPV done. MVI daily recommended, cholesterol followed by PCP., and Return in about 1 year (around 09/12/2024) for wwe and iud removal. . Susan Anderson MD 09/12/2023 CRANE OPERATOR documented in this encounter Miscellaneous Notes * Assessment & Plan Note - Susan Anderson MD - 09/12/2023 4:18 PM CSTAssociated Problem(s): Hormone replacement therapy (HRT) We discussed the natural course of progesterone throughout the month and how it is hard for me to comment on her labs not knowing when she had it drawn. I doubts she needs We discussed the benefits of testosterone. Will check cmp and lp yearly. CRANE OPERATOR CRANE OPERATOR * Assessment & Plan Note - Susan Anderson MD - 09/12/2023 3:53 PM CSTAssociated Problem(s): IUD contraception Due out 2023 CRANE OPERATOR * Assessment & Plan Note - Susan Anderson MD - 09/12/2023 3:52 PM CSTAssociated Problem(s): Well woman exam Pap done. RTO 12m. I will send the results to the portal. If she has not heard in a week, to call the office. CRANE OPERATOR documented in this encounter Plan of Treatment Not on file documented as of this encounter Procedures Procedure Name Priority Date/Time Associated Diagnosis Comments PAP AND HPV, REFLEX TO HPV GENOTYPES Routine 09/12/2023 4:52 PM PORT CRANE OPERATOR Well woman exam documented in this encounter Results * Pap and HPV, reflex to HPV Genotypes (09/12/2023 4:52 PM PORT CRANE OPERATOR) CLINICAL INFORMATION: [facility] Comment:Routine exam LMP [facility] Comment:09/12/2023 Previous Pap [facility] Comment:NONE GIVEN Prev. Bx [facility] Comment:NONE GIVEN SOURCE: [facility] Comment:Cervix, Endocervix Pap, specimen adequacy [facility] Comment: Satisfactory for evaluation. Endocervical/transformation zone component present. HPV interp [facility] Comment: Cytology Results: Negative for intraepithelial lesion or malignancy. COMMENTS [facility] Comment: This case could not be evaluated with computer assisted technology. The slide was manually screened according to routine procedures. Healthcare Translator Que [facility] Comment: YQ, CT(ASCP) CT screening location: [place] [address] Administration JULIO CESAR [place] [address] Comment [facility] Comment: EXPLANATORY NOTE: The Pap is a screening test for cervical cancer. It is not a diagnostic test and is subject to false negative and false positive results. It is most reliable when a satisfactory sample, regularly obtained, is submitted with relevant clinical findings and history, and when the Pap result is evaluated along with historic and current clinical information. Human papillomavirus DNA, High Risk E6/E7 Not Detected NOT DETECTED [facility] Comment: Not Detected High Risk HPV types (16,18,31,33,35,39,45,51,52, 56,58,59,66,68) were not detected. Other HPV types which cause anogenital lesions may be present. The significance of the other types of HPV in malignant processes has not been established. Methodology: Real Time PCR ? Thin prep 09/12/2023 4:52 PM PORT CRANE OPERATOR 09/13/2023 4:30 AM PORT CRANE OPERATOR us Susan Anderson MD LAB CYTOLOGY ORDERA BLES Final Result [facility] [address] [address] JULIO CESAR [place] [address] [facility] [address] [facility] [address] [place], [place] documented in this encounter Visit Diagnoses Diagnosis Well woman exam- Primary Routine general medical examination at a health care facility IUD contraception Hormone replacement therapy (HRT) documented in this encounter Historical Medications * This list may reflect changes made after this encounter. cream base no.52, bulk, cream Place on the skin Testosterone UNABLE TO FIND Testosterone 22.5 mL (cream) applied nightly progesterone (PROMETRIUM) 100 mg capsule Take 1 capsule (100 mg total) by mouth daily added in this encounter Care Teams Specialty Foods Cook Relationship Specialty Start Date End Date Ana Pavon NP [address] [facility] [address] [place] [address] PCP - General Family Medicine 06/09/23 Kritsen Mancera MD Medical Oncologist/Palletizer Operator Medical Oncology 11/21/20 Lewis Sunshine MD [address] [facility] [address] [place] [address] Surgeon Orthopedic Surgery 01/05/23 documented as of this encounter
--- OUTSIDE RECORDS SUMMARY | 2024-10-06 07:03 | XMS_ITS | Encounter Summary ---
Author Organization [facility] Healthcare Address [address] [place] [address] Care Team Providers Care Machine Sign Writer Name Role Phone Kristen Mancera MD Unavailable Lewis Sunshine MD Unavailable [phone] Ana Pavon NP Primary Care Provider [phone] Reason for Visit * Diagnostic Imaging (Routine) - Closed Specialty Diagnoses / Procedures Referred By Wilfred stewart Referred To Contact Diagnoses Encounter for screening mammogram for malignant neoplasm of breast Procedures Screening Mammogram Bilateral w Papo w Implants Screening Mammogram Bilateral W Papo Ana Pavon, DERICK [address] [facility] [address] [place] [address] Phone: tel: fax: External Order Referral ID Status Reason Start Date Expiration Date Visits Re quested Visits Authorized [id number] Closed 06/09/2023 07/08/2024 1 1 Encounter Details Date Type Department Care Team (Latest Contact Info) Description 04/06/2024 10:56 AM CDT - 04/06/2024 11:59 PM CDT Hospital Encounter [facility] Breast Imaging [address] [place] [id number] Encounter for screening mammogram for malignant neoplasm of breast Discharge Disposition: Discharge to home or self care Social History Tobacco Use Types Packs/Day Years [...] when you are drinking? 1 or 2 3 Q3: How often do you have si x or more drinks on one occasion? Never 01/11/2023 PHQ-2 Answer Date Recorded PHQ-2 Total Score (If total score is 3 or more points, staff should administer the PHQ-9) 0 11/10/2023 Personal Safety Answer Date Recorded Have you ever been in or are you currently in a harmful physical or emotional relationship or is someone making you feel afraid or unsafe? 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 Gender Identity Not on file Sexual Orientation Not on file documented as of this encounter Medications at Time of Discharge cream base no.52, bulk, cream Place on the skin Testosterone multivitamin capsuleIndication s:Vitamin Deficiency Prevention Take 1 capsule by mouth humane officer before breakfast progesterone (PROMETRIUM) 100 mg capsule Take 1 capsule (100 mg total) by mouth daily UNABLE TO FIND Testosterone 22.5 mL (cream) applied nightly ALPRAZolam (XANAX) 0.25 mg tabletIndications :anxiety Take 1 tablet (0.25 mg total) by mouth 2 (two) times a day as needed for anxiety 60 tablet 03/19/2024 4 zolpidem (AMBIEN) 10 mg tabletIndications :Neutropenia, unspecified type (HCC) TAKE 1 TABLET BY MOUTH AT BEDTIME NEEDED FOR SLEEP 30 tablet 1 02/13/2024 4 documented as of this encounter Discharge Disposition Disposition Code Departure Means Destination Discharge to home or self care documented in this encounter Plan of Treatment Not on file documented as of this encounter Procedures Procedure Name Priority Date/Time Associated Diagnosis Comments SCREENING MAMMOGRAM BILATERAL W PAPO W IMPLANTS Schedule Routine, Read Routine (OP Routine) 04/06/2024 11:19 AM CDT Encounter for screening mammogram for malignant neoplasm of breast documented in this encounter Results * Screening Mammogram Bilateral w Papo w Implants (04/06/2024 11:19 AM CDT) Anatomical Region Laterality Modality Breast Bilateral Mammography Impressions 04/06/2024 12:28 PM CDT BI-RADS?? ATLAS category (overall): 2 - Benign There is no mammographic evidence of malignancy. A 1 year screening mammogram is recommended. The patient has been or will be contacted. We recommend annual screening mammography for women at average risk of breast cancer beginning at age 40, based on guidelines of the [employer] (ACR Practice Parameter for the Performance of Screening and Diagnostic Mammography) and [employer]. For women with and elevated risk of breast cancer, please refer to the ACR Practice Parameter for specific screening recommendations. The patient will be entered into a reminder system with a target due date of 1 year for her next screening exam. Narrative 04/06/2024 12:28 PM CDT Screening Mammogram Bilateral w Papo w Implants: 04/06/24 The study was acquired using full field digital technology and interpreted from soft copy. 2D digital mammographic views, as well as 3D digital tomosynthesis were performed in the CC and MLO projections. CLINICAL: ??Encounter for screening mammogram for malignant neoplasm of breast. ??No relevant medical history has been documented for this patient. No known family history of breast cancer. COMPARISONS: 04/28/2022 Diagnostic Mammogram Bilateral W Papo W Implants 04/28/2022 US Breast Left Limited 07/15/2020 Screening Mammogram Bilateral w Papo w Implants 11/17/2018 Screening Mammogram Bilateral w Papo w Implants 11/19/2016 Screening Mammogram BREAST TISSUE: The breasts are heterogeneously dense, which may obscure small masses. FINDINGS: Bilateral breast subpectoral saline implants are stable in appearance and intact. The presence of implants limits the sensitivity of mammography. There is no suspicious finding in either breast on mammogram. Ana Pavon NP IMG MAMMO PROCEDURES Final Resul t documented in this encounter Visit Diagnoses Diagnosis Encounter for screening mammogram for malignant neoplasm of breast documented in this encounter Care Teams Machine Sign Writer Relationship Specialty Start Date End Date Ana Pavon NP [address] [facility] [address] [place] [address] PCP - General Family Medicine 06/09/23 Kristen Mancera MD Medical Oncologist/Freight Loader Medical Oncology 11/21/20 Lewis Sunshine MD [address] [address] Surgeon Orthopedic Surgery 01/05/23 documented as of this encounter
--- OUTSIDE RECORDS SUMMARY | 2024-10-06 07:03 | XMS_ITS | Encounter Summary ---
Author Organization [facility] Address [address] [place] [address]. [place], [place] [id number] [place] [id number] Care Team Providers Care Pastry Mixer Name Role Phone Unavailable Primary Care Provider Unavailabl e Encounter Details Date Type Department Care Team (Late st Contact Info) Description 05/31/1997 [place] [address] , Generic Conversion, Social History Tobacco Use Types Packs/Day Years Used Date Smoking Tobacco: Never Assessed Comments Unknown Sex and Gender Information Value Date Recorded Sex Assigned at Not on file Legal Sex Female 6:22 PM CDT Gender Identity Not on file Sexual Orientation Not on file documented as of this encounter Plan of Treatment Not on file documented as of this encounter Visit Diagnoses Not on filedocumented in this encounter
--- OUTSIDE RECORDS SUMMARY | 2024-10-06 07:03 | XMS_ITS | Encounter Summary ---
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 Gender Identity Not on file Sexual Orientation Not on file documented as of this encounter Medications at Time of Discharge levonorgestrel (MIRENA) IUDIndications:Abn ormal Uterine Bleeding, Contraception 1 each by intrauterine route once 02/22/2014 multivitamin capsuleIndications :Vitamin Deficiency Prevention Take 1 capsule by mouth slp teacher before breakfast ALPRAZolam (XANAX) 0.25 mg tabletIndications: Neutropenia, unspecified type (HCC) Take 1 tablet (0.25 mg total) by mouth 2 (two) times a day 30 tablet 08/03/2022 06/09/20 zolpidem (AMBIEN) 10 mg tabletIndications: Neutropenia, unspecified type (HCC) TAKE 1 TABLET BY MOUTH EVERY DAY AT NIGHT 30 tablet 5 12/23/2022 06/09/20 documented as of this encounter Discharge Disposition Disposition Code Departure Means Destination Discharge to home or self care documented in this encounter Plan of Treatment Not on file documented as of this encounter Visit Diagnoses Not on filedocumented in this encounter Care Teams Almond Blancher Operator Relationship Specialty Start Date End Date Kacey Gonzalez MD PCP - General Family Medicine 04/07/21 06/08/23 Kristen Mancera MD Medical Oncologist/Systems Architect Medical Oncology 11/21/20 Lewis Sunshine MD [address] [address] Surgeon Orthopedic Surgery 01/05/23 documented as of this encounter
--- OUTSIDE RECORDS SUMMARY | 2024-10-06 07:03 | XMS_ITS | Encounter Summary ---
Author Organization [facility] Address [address] [place] [address] Care Team Providers Care Wood Stainer Name Role Phone Kristen Mancera MD Unavailable Kacey Gonzalez MD Primary Care Provider [phone] Lewis Sunshine MD Unavailable [phone] Reason for Visit * Reason Comments PE Encounter Details Date Type Department Care Team (Late st Contact Info) Description 05/04/2023 9:30 AM CDT Office Visit [facility] Medical [facility] [address] [id number] Taylor Whittington, DERICK [address] [facility] [address], [place] [address] Annual physical exam (Primary Dx); Anxiety; Primary insomnia Social History Tobacco Use Types Packs/Day Years Used Date Smoking Tobacco: Never Smokeless Tobacco: Never Tobacco Cessation:Counseling Given: Not Answered AUDIT-C Answer Date Recorded Q1: How often [...] on file Legal 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 Gender Identity Not on file Sexual Orientation Not on file documented as of this encounter Last Filed Vital Signs Vital Sign Reading Time Taken Comments Blood Pressure 112/70 05/04/2023 9:13 AM CDT Pulse 73 05/04/2023 9:13 AM CDT Temperature - - Respiratory Rate - - Oxygen Saturation 98% 05/04/2023 9:13 AM CDT Inhaled Oxygen Concentration - - Weight 56.2 kg (124 lb) 05/04/2023 9:13 AM CDT Height 157.5 cm (5' 2 ) 05/04/2023 9:13 AM CDT Body Mass Index 22.68 05/04/2023 9:13 AM CDT documented in this encounter Patient Instructions * Patient Instructions* Taylor Whittington NP - 05/04/2023 9:30 AM CDT Shingles vaccines (Shingrix): 2 dose series 2-6 months apart. No boosters thereafter. Get at local pharmacy or schedule nurse visits here. Plan your life around the second shot (common to feel under the weather for 2-3 days) documented in this encounter Progress Notes * Taylor Whittington NP - 05/04/2023 9:30 AM CDT Images from the original note were not included. Subjective/Objective Patient ID: Karen Medeiros is a 52 y.o. female. Annual Preventive Exam: Exercise: had a disc rupture back in October and was immobile after that, getting back into her previous routine Diet: generally good now Healthcare Maintenance - Cervical cancer screening (Pap q3yr 21-29, Pap+HPV q5yr >/= 30 and <65):due, plans to schedule - CRC screening (45-75):2021, repeat in 3 years - Breast ca screening (50-74; mammogram q1-2yrs >50; if 40-50 d/w patient):plans to schedule - Tobacco use:no - Lung ca screening (50-80 if 20-pack-yr current smoker or quit in last 15 yrs):n/a - Osteoporosis screening (65+):n/a - Lipid screening:ordered - Statin (mod/high intensity if clinical ASCVD, LDL>190, age 40-75 +DM & LDL 70- 189, or 10yrrisk >7% or Diabetic): n/a - Diabetes screening: ordered -Obesity/physical activity/diet counseling: (There is no height or weight on file to calculate BMI.) n/a - Immunizations - Influenza:annual - Prevnar (>65 if PPSV23 naive, or at least 1 year after PPSV23): - Pneumovax (>65 unless risk factors, 6-12mos after Prevnar): - Tdap/Td ([id number]):2020 - Zoster (>50):discussed - COVID: yes Allergies: No Known Allergies Medications: Current Outpatient Medications on File Prior to Visit Medication Sig Dispense Refill ALPRAZolam (XANAX) 0.25 mg tablet Take 1 tablet (0.25 mg total) by mouth 2 (two) times a day (Patient taking differently: Take 1 tablet (0.25 mg total) by mouth 2 (two) times a day) 30 tablet 0 levonorgestrel (MIRENA) IUD 1 each by intrauterine route once multivitamin capsule Take 1 capsule by mouth pedal assembler before breakfast zolpidem (AMBIEN) 10 mg tablet TAKE 1 TABLET BY MOUTH EVERY DAY AT NIGHT (Patient taking differently: Take 1 tablet (10 mg total) by mouth nightly as needed) 30 tablet 5 No current facility-administered medications on file prior to visit. Social History Tobacco Use Smoking status: Never Smokeless tobacco: Never Substance and Sexual Activity Drug use: Never Sexual activity: Yes Partners: Male control/protection: I.U.D. Alcohol Use: Not At Risk (01/11/2023) AUDIT-C Frequency of Alcohol Consumption: 4 or more times a week Average Number of Drinks: 1 or 2 Frequency of Binge Drinking: Never Family History Problem Relation Age of Onset Non-Hodgkin's Lymphoma Mother Cancer Mother No Known Problems Father No Known Problems Sister No Known Problems Brother Anesthesia problems Neg Hx Review of Systems: Review of Systems Constitutional: Negative for chills, fatigue and fever. Respiratory: Negative for cough, shortness of breath and wheezing. Cardiovascular: Negative for chest pain, palpitations and leg swelling. Gastrointestinal: Negative for abdominal pain, blood in stool, constipation, diarrhea, nausea and vomiting. Genitourinary: Negative for difficulty urinating, dysuria, frequency and urgency. Neurological: Negative for dizziness, syncope, weakness, numbness and headaches. Psychiatric/Behavioral: Negative for dysphoric mood. The patient is not nervous/anxious. Physical Exam: BP 112/70 (BP Location: Right arm, Patient Position: Sitting) Pulse 73 Ht 157.5 cm (5' 2 ) Wt56.2 kg (124 lb) SpO2 98% BMI 22.68 kg/m?? Physical Exam Constitutional: General: She is not in acute distress. Appearance: Normal appearance. HENT: Head: Normocephalic and atraumatic. Right Ear: Tympanic membrane, ear canal and external ear normal. Left Ear: Tympanic membrane, ear canal and external ear normal. Mouth/Throat: Pharynx: No posterior oropharyngeal erythema. Eyes: Extraocular Movements: Extraocular movements intact. Conjunctiva/sclera: Conjunctivae normal. Pupils: Pupils are equal, round, and reactive to light. Cardiovascular: Rate and Rhythm: Normal rate and regular rhythm. Pulses: Normal pulses. Heart sounds: Normal heart sounds. Pulmonary: Effort: Pulmonary effort is normal. Breath sounds: Normal breath sounds. Abdominal: General: Abdomen is flat. Palpations: Abdomen is soft. Lymphadenopathy: Cervical: No cervical adenopathy. Skin: General: Skin is warm and dry. Capillary Refill: Capillary refill takes less than 2 seconds. Neurological: General: No focal deficit present. Mental Status: She is alert and oriented to person, place, and time. Psychiatric: Mood and Affect: Mood normal. Behavior: Behavior normal. Assessment/Plan Diagnoses and all orders for this visit: Annual physical exam (Primary) Assessment & Plan: Flu shot annually Tdap 2020 Shingrix discussed COVID yes Cologuard normal 2021 Annual mamm and WWE Generally in good health. HM updated as per overview. Check routine labwork. Discussed proper diet,regular exercise, adequate water intake, adequate sleep. Information given on health maintenance. Orders: - CBC without differential; Future - Comprehensive metabolic panel; Future - Hemoglobin A1c; Future - Lipid panel; Future - TSH reflex to free T4; Future Anxiety Assessment & Plan: Uses prn xanax. Has not recently use it. Primary insomnia Assessment & Plan: Taking ambien and this helps. Taylor Whittington NP documented in this encounter Miscellaneous Notes * Assessment & Plan Note - Taylor Whittington NP - 05/04/2023 9:58 AM CDT Associated Problem(s): Annual physical exam Flu shot annually Tdap 2020 Shingrix discussed COVID yes Cologuard normal 2021 Annual mamm and WWE Generally in good health. HM updated as per overview. Check routine labwork. Discussed proper diet,regular exercise, adequate water intake, adequate sleep. Information given on health maintenance. * Assessment & Plan Note - Taylor Whittington NP - 05/04/2023 9:50 AM CDT Associated Problem(s): Anxiety Uses prn xanax. Has not recently use it. * Assessment & Plan Note - Taylor Whittington NP - 05/04/2023 9:50 AM CDT Associated Problem(s): Primary insomnia Taking ambien and this helps. documented in this encounter Plan of Treatment Not on file documented as of this encounter Procedures Procedure Name Priority Date/Time Associated Diagnosis Comments EGFR Routine 05/04/2023 9:56 AM CDT Annual physical exam THYROID FUNCTION CASCADE Routine 05/04/2023 9:56 AM CDT Annual physical exam CBC WITHOUT DIFFERENTIAL Routine 05/04/2023 9:56 AM CDT Annual physical exam HEMOGLOBIN A1C Routine 05/04/2023 9:56 AM CDT Annual physical exam LIPID PANEL Routine 05/04/2023 9:56 AM CDT Annual physical exam COMPREHENSIVE METABOLIC PANEL Routine 05/04/2023 9:56 AM CDT Annual physical exam documented in this encounter Results * eGFR (05/04/2023 9:56 AM CDT) [facility] eGFR 107 mL/min/1. 73 m2 [facility] Comment: Interpretive Data Reference Interval Normal ?>/= 90 mL/min/1.73m2 Mildly decreased* ? 60 - 89 mL/min/1.73m2 Mildly to moderately decreased ?45 - 59 mL/min/1.73m2 Moderately to severely decreased ??30 - 44 mL/min/1.73m2 Severely decreased ?15 - 29 mL/min/1.73m2 Kidney Failure ?< 15 ??mL/min/1.73m2 *Relative to young adult level Estimated glomerular filtration rate is determined by the 2020 CKD-EPI equation recommended by the National Kidney Foundation (A Unifying Approach to GFR Estimation: Recommendations of the NKF-ASK Task Force on Reassessing the Inclusion of Race in Diagnosing Kidney Disease, JASN 202). The CKD-EPI equation should not be used for patients with unstable renal function and has not been validated in children and those over 70. Current interpretive data was last reviewed 2021. Blood 05/04/2023 9:56 AM CDT 05/04/2023 12:27 PM CDT Taylor Whittington NP LAB BLOOD ORDERABLES Final Resu lt Performing Organization Address [facility]/ZIP Co de Phone Number [facility] [address] Department [place] [address] * TSH reflex to free T4 (05/04/2023 9:56 AM CDT) Pathologist [facility] TSH 1.66 0.30 - 4.20 mcIUnit/mL [facility] Blood 05/04/2023 9:56 AM CDT 05/04/2023 12:27 PM CDT Taylor Whittington NP LAB BLOOD ORDERABLES Final Resu lt Performing Organization Address [facility] Co de Phone Number [facility] [address] Department [place] [address] * (ABNORMAL) Lipid panel (05/04/2023 9:56 AM CDT) Pathologist [facility] Cholesterol 252(H) 30 - 199 mg/dL [facility] Comment: Interpretive Data Ages < or = 19 years ??Acceptable: ? <170 mg/dL ??Borderline high: ??170-199 mg/dL ??High: ? >or= 200 mg/dL Ages > or = 20 years ??Desirable: ?<200 mg/dL ??Borderline high: ??200-239 mg/dL ??High: ? >or= 240 mg/dL Literature References: 1. Expert Panel on Integrated Guidelines for Cardiovascular Health and Risk Reduction in Children and Adolescents. Pediatrics 2011;128:S213 2. NCEP Expert Panel. Circulation 2004;110:227 Current Interpretive Data was last revised on 2018. Triglycerides 57 <=149 mg/dL [facility] Comment: Interpretive Data Ages < or = 9 years ??Acceptable: ? <75 mg/dL ??Borderline high: ??75-99 mg/dL ??High: ? >or= 100 mg/dL Ages 10 to 20 years ??Acceptable: ? <90 mg/dL ??Borderline high: ??90-129 mg/dL ??High: ? >or= 130 mg/dL Ages > or = 20 years ??Desirable: ?<150 mg/dL ??Borderline high: ??150-199 mg/dL ??High: ? 200-499 mg/dL ?Very high: ?? >or= 499 mg/dL Literature References: 1. Expert Panel on Integrated Guidelines for Cardiovascular Health and Risk Reduction in Children and Adolescents. Pediatrics 2011;128:S213 2. NCEP Expert Panel. Circulation 2004;110:227 Current Interpretive Data was last revised on 2018. HDL 83 >=40 mg/dL [facility] Comment: Interpretive Data Ages < or = 19 years ??Acceptable: ? >45 mg/dL ??Borderline low: ?? 40-45 mg/dL ??Low: ? <40 mg/dL Ages > or = 20 years ??Desirable: ?>or= 60 mg/dL ??Low: ? <40 mg/dL Literature References: 1. Expert Panel on Integrated Guidelines for Cardiovascular Health and Risk Reduction in Children and Adolescents. Pediatrics 2011;128:S213 2. NCEP Expert Panel. Circulation 2004;110:227 Current Interpretive Data was last revised on 2018. LDL, calculated 158(H) <=129 mg/dL [facility] Comment: Interpretive Data Ages < or = 19 years ??Acceptable: ? <110 mg/dL ??Borderline high: ??110-129 mg/dL ??High: ?>or= 130 mg/dL Ages > or = 20 years ??Optimal: ? <100 mg/dL ??Near optimal: ?100-129 mg/dL ??Borderline high: ?? 130-159 mg/dL ??High: ?>160 mg/dL Literature References: 1. Expert Panel on Integrated Guidelines for Cardiovascular Health and Risk Reduction in Children and Adolescents. Pediatrics 2011;128:S213 2. NCEP Expert Panel. Circulation 2004;110:227 Current Interpretive Data was last revised on 2018. Non-HDL Cholesterol 169 mg/dL [facility] Comment: Interpretive Data Ages < or = 19 years ??Acceptable: ?<120 mg/dL ??Borderline high: ??120-144 mg/dL ??High: ?>145 mg/dL Ages > or = 20 years ??When triglycerides are >200 mg/dL, Non-HDL cholesterol is a secondary target of ? therapy with treatment goals that are 30 mg/dL greater than the LDL cholesterol target. ? Literature References: 1. Expert Panel on Integrated Guidelines for Cardiovascular Health and Risk Reduction in Children and Adolescents. Pediatrics 2011;128:S213 2. NCEP Expert Panel. Circulation 2004;110:227 Current Interpretive Data was last revised on 2018. Chol/HDL ratio 3 [facility] Blood 05/04/2023 9:56 AM CDT 05/04/2023 12:27 PM CDT us Taylor Whittington NP LAB BLOOD ORDERABLES Final Resu lt [facility] [address] Department [place] [address] * Hemoglobin A1c (05/04/2023 9:56 AM CDT) Hgb A1C 4.6 4.0 - 5.6 % [facility] Estimated Average Glucose 85 mg/dL [facility] Comment: The ADA recommends reporting an estimated Average Glucose (eAG) with all Hemoglobin A1c results using the equation derived from a study of 507 normal and diabetic adults. ??Minority populations were underrepresented and children were not included. ?? (Diabetes Care 31:6451-4966, 2008). ??The eAG is not equivalent to a fasting glucose. Blood 05/04/2023 9:56 AM CDT 05/04/2023 12:27 PM CDT us Taylor Whittington NP LAB BLOOD ORDERABLES Final Resu lt [facility] [address] Department [place] [address] * Comprehensive metabolic panel (05/04/2023 9:56 AM CDT) Sodium 140 135 - 145 mmol/L [facility] Potassium, pl 4.7 3.3 - 4.9 mmol/L [facility] Chloride 103 97 - 110 mmol/L [facility] CO2 25 22 - 32 mmol/L [facility] Anion gap 12 2 - 15 mmol/L [facility] BUN 8 6 - 25 mg/dL [facility] Creatinine 0.64 0.60 - 1.10 mg/dL [facility] Glucose 80 70 - 199 mg/dL [facility] Comment: Interpretive Data Fasting glucose >/= 126 mg/dl is diagnostic for diabetes. ?? Fasting is defined as no caloric intake for at least 8 hours. Fasting glucose between 100 mg/dl to 125 mg/dl is diagnostic of prediabetes. In a patient with classic symptoms of hyperglycemia or hyperglycemic crisis, a random glucose >/= 200 mg/dl is diagnostic for diabetes. In the absence of unequivocal hyperglycemia, results should be confirmed by repeat testing. The classification and Diagnosis of Diabetes Diabetes Care 2021; 46: S19-S40. Current interpretive data was last revised 2022. Calcium 9.5 8.5 - 10.3 mg/dL [facility] Bilirubin, total 0.8 0.1 - 1.2 mg/dL [facility] Protein, pl 7.2 6.5 - 8.5 g/dL [facility] Albumin 4.6 3.5 - 5.0 g/dL [facility] Alk phos 40 40 - 130 Units/L [facility] ALT 17 7 - 45 Units/L [facility] AST 21 10 - 45 Units/L [facility] Blood 05/04/2023 9:56 AM CDT 05/04/2023 12:27 PM CDT Taylor Whittington NP LAB BLOOD ORDERABLES Final Resu lt Performing Organization Address [facility] Co de Phone Number [facility] [address] [place] [address] * (ABNORMAL) CBC without differential (05/04/2023 9:56 AM CDT) [facility] WBC 3.2(L) 3.8 - 9.9 K/cumm [facility] Hgb 14.5 11.9 - 15.5 g/dL [facility] Hct 43.4 35.6 - 45.5 % [facility] Plt 304 150 - 400 K/cumm [facility] MPV 11.3 9.1 - 12.3 fL [facility] RBC 4.58 3.90 - 5.20 M/cumm [facility] MCV 94.8 81.3 - 96.4 fL [facility] MCH 31.7 27.1 - 33.3 pg [facility] MCHC 33.4 32.3 - 35.7 g/dL [facility] RDW CV 12.0 11.1 - 14.9 % [facility] RDW SD 42.1 35.7 - 48.1 fL [facility] NRBC abs 0.00 0.00 - 0.01 K/cumm [facility] Blood 05/04/2023 9:56 AM CDT 05/04/2023 12:27 PM CDT Taylor Whittington NP LAB BLOOD ORDERABLES Final Resu lt [facility] [address] Department [employer] [place] [address] documented in this encounter Visit Diagnoses Diagnosis Annual physical exam- Primary Routine general medical examination at a health care facility Anxiety Anxiety state, unspecified Primary insomnia Persistent disorder of initiating or maintaining sleep documented in this encounter Care Teams Wood Stainer Relationship Specialty Start Date End Date Kacey Gonzalez MD PCP - General Family Medicine 04/07/21 06/08/23 Kristen Mancera MD Medical Oncologist/Customer Security Clerk Medical Oncology 11/21/20 Lewis Sunshine MD [address] [address] Surgeon Orthopedic Surgery 01/05/23 documented as of this encounter
--- OUTSIDE RECORDS SUMMARY | 2024-10-06 07:03 | XMS_ITS | Encounter Summary ---
Author Organization [facility] Healthcare Address [address] [place] [address] Care Team Providers Care Fuel Island Attendant Name Role Phone Kristen Mancera MD Unavailable Lewis Sunshine MD Unavailable [phone] Ana Pavon NP Primary Care Provider [phone] Encounter Details Date Type Department Care Team (Latest Contact Info) Description 08/26/2023 3:25 PM BODY SHOP MECHANIC - 08/26/2023 11:59 PM BODY SHOP MECHANIC Hospital Encounter [facility] Advanced Medicine [facility] ([facility]) [address] [place] [id number] Discharge Disposition: Discharge to home or self care Social History Tobacco Use Types Packs/Day Years Used Date Smoking Tobacco: Never Passive Smoke Exposure: Never Smokeless Tobacco: Never AUDIT-C Answer Date [...] points, staff should administer the PHQ-9) 0 06/09/2023 Personal Safety Answer Date Recorded Have you ever been in or are you currently in a harmful physical or emotional relationship or is someone making you feel afraid or unsafe? Denies 01/11/2023 Comments No Sex and Gender Information Value Date Recorded Sex Assigned at Not on file Legal Sex Female 10:19 PM BODY SHOP MECHANIC Gender Identity Not on file Sexual Orientation Not on file documented as of this encounter Medications at Time of Discharge levonorgestrel (MIRENA) IUDIndications:Abn ormal Uterine Bleeding, Contraception 1 each by intrauterine route once 02/22/2014 multivitamin capsuleIndications :Vitamin Deficiency Prevention Take 1 capsule by mouth automated process operator before breakfast ALPRAZolam (XANAX) 0.25 mg tabletIndications: anxiety Take 1 tablet (0.25 mg total) by mouth 2 (two) times a day as needed for anxiety 60 tablet 06/09/2023 11/03/19 24 zolpidem (AMBIEN) 10 mg tabletIndications: Sleep-Onset Insomnia Take 1 tablet (10 mg total) by mouth nightly as needed for sleep 30 tablet 1 08/15/2023 10/11/19 24 documented as of this encounter Discharge Disposition Disposition Code Departure Means Destination Discharge to home or self care documented in this encounter Plan of Treatment Not on file documented as of this encounter Visit Diagnoses Not on filedocumented in this encounter Care Teams Fuel Island Attendant Relationship Specialty Start Date End Date Ana Pavon NP [address] [facility] [address] [place] [address] PCP - General Family Medicine 06/09/23 Kristen Mancera MD Medical Oncologist/Manager Baby Medical Oncology 11/21/20 Lewis Sunshine MD [address] [facility] [address] [place] [address] Surgeon Orthopedic Surgery 01/05/23 documented as of this encounter
--- OUTSIDE RECORDS SUMMARY | 2024-10-06 07:03 | XMS_ITS | Encounter Summary ---
Author Organization [facility] Address [address] [place] [address] Phone Care Team Providers Care Business Continuity Coordinator Name Role Phone Kristen Mancera MD Unavailable Kacey Gonzalez MD Primary Care Provider [phone] Lewis Sunshine MD Unavailable [phone] Reason for Visit * Reason Comments Post-op 3 Month Post Op Encounter Details Date Type Department Care Team (Late st Contact Info) Description 04/25/2023 8:30 AM CDT Office Visit [facility] Orthopaedic Surgery [address] [facility] 6[address] [place] [address] [place] [id number] Lewis Sunshine MD [address] [facility] [address] [place] [address] Lumbar disc herniation (Primary Dx) Social History Tobacco Use Types [...] points, staff should administer the PHQ-9) 0 04/20/2022 Personal Safety Answer Date Recorded Have you ever been in or are you currently in a harmful physical or emotional relationship or is someone making you feel afraid or unsafe? 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 She is status post left L5-S1 diskectomy 3 months ago. She is doing well. Has no radicular pain does have some residual numbness on the lateral aspect of her foot. It is not that bothersome for her. Physical Examination She is well-appearing. She is walking with a normal gait. She is good strength 5/5 in hip flexion, quadriceps, dorsi and plantar flexors bilaterally. Sensation is intact except for the lateral. Left foot which is 1/2. Review of Plain Radiographs/Studies Impression/Plan Doing well after left L5-S1 diskectomy. Patient should resume normal activities as tolerated. I cansee her back as needed. Lewis Sunshine M.D., M.S. Pricing Associate Orthopaedic and Neurological Surgery [facility] [employer] [place], [place] Italian Lecturer done by [employer]; therefore, variances and inaccuracies may occur. I reviewed the patient problem list pertinent to the visit today, but the entire patient problem list was not reviewed today. documented in this encounter Plan of Treatment Not on file documented as of this encounter Visit Diagnoses Diagnosis Lumbar disc herniation- Primary Displacement of lumbar intervertebral disc without myelopathy documented in this encounter Care Teams Business Continuity Coordinator Relationship Specialty Start Date End Date Kacey Gonzalez MD PCP - General Family Medicine 04/07/21 06/08/23 Kristen Mancera MD Medical Oncologist/Senior Product Engineer Medical Oncology 11/21/20 Lewis Sunshine MD [address] [address] Surgeon Orthopedic Surgery 01/05/23 documented as of this encounter
--- OUTSIDE RECORDS SUMMARY | 2024-10-06 07:03 | XMS_ITS | Encounter Summary ---
Author Organization [facility] Healthcare Address [address] [place] [address] Care Team Providers Care Building Insulation Installer Name Role Phone Kristen Mancera MD Unavailable Lewis Sunshine MD Unavailable [phone] Ana Pavon NP Primary Care Provider [phone] Encounter Details Date Type Department Care Team (Latest Contact Info) Description 10/19/2023 11:25 AM TRAFFIC DIVISION COMMANDING OFFICER - 10/19/2023 11:59 PM TRAFFIC DIVISION COMMANDING OFFICER Hospital Encounter [facility] [address] [place], [place] [id number] Acute non-recurrent pansinusitis Discharge Disposition: Discharge to home or self [...] on file Legal Sex Female 10:19 PM TRAFFIC DIVISION COMMANDING OFFICER Gender Identity Not on file Sexual Orientation Not on file documented as of this encounter Medications at Time of Discharge cream base no.52, bulk, cream Place on the skin Testosterone levonorgestrel (MIRENA) IUDIndications:Abn ormal Uterine Bleeding, Contraception 1 each by intrauterine route once 02/22/2014 multivitamin capsuleIndications :Vitamin Deficiency Prevention Take 1 capsule by 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 before 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 progesterone (PROMETRIUM) 100 mg capsule Take 1 capsule (100 mg total) by mouth daily UNABLE TO FIND Testosterone 22.5 mL (cream) applied nightly amoxicillin-clavul anate (AUGMENTIN) 875-125 mg per tablet Take 1 tablet by mouth 2 (two) times a day for 7 days 14 tablet 10/19/2023 10/26/19 24 ALPRAZolam (XANAX) 0.25 mg tabletIndications: anxiety Take 1 tablet (0.25 mg total) by mouth 2 (two) times a day as needed for anxiety 60 tablet 06/09/2023 11/03/19 24 zolpidem (AMBIEN) 10 mg tabletIndications: Neutropenia, unspecified type (HCC) TAKE 1 TABLET BY MOUTH NIGHTLY NEEDED FOR SLEEP 30 tablet 1 10/11/2023 12/09/19 24 documented as of this encounter Discharge Disposition Disposition Code Departure Means Destination Discharge to home or self care documented in this encounter Plan of Treatment Not on file documented as of this encounter Procedures Procedure Name Priority Date/Time Associated Diagnosis Comments INFLUENZA A/B, RSV, AND COVID-19 PCR Routine 10/19/2023 11:25 AM TRAFFIC DIVISION COMMANDING OFFICER Acute non-recurrent pansinusitis THROAT CULTURE Routine 10/19/2023 11:25 AM TRAFFIC DIVISION COMMANDING OFFICER Acute non-recurrent pansinusitis documented in this encounter Results * (ABNORMAL) Influenza A/B, RSV, and COVID-19 PCR Nasopharyngeal (10/19/2023 11:25 AM TRAFFIC DIVISION COMMANDING OFFICER) COVID-19 RNA Negative Negative [facility] Influenza A RNA Negative Negative [facility] Influenza B RNA Negative Negative [facility] RSV RNA Positive(A) Negative [facility] Comment: Interpretive data: Testing performed by [facility]. This test is performed using the ExactFlat Xpert Xpress CoV-2/Flu/RSV plus assay. This is a multiplex, real-time reverse transcriptase PCR assay intended for the qualitative detection of nucleic acid from SARS-CoV-2, influenza A, influenza B, and respiratory syncytial virus. This assay has been cleared by the [place] Food and Drug administration. The performance characteristics have been verified by the [facility]. ??Results must be considered in the clinical context, and a negative result does not rule out infection. Interpretive Data last revised 2023 Nasopharyngeal 10/19/2023 11 :25 AM TRAFFIC DIVISION COMMANDING OFFICER 10/19/2023 2:30 PM TRAFFIC DIVISION COMMANDING OFFICER Narrative [facility] - 10/19/2023 3:53 PM TRAFFIC DIVISION COMMANDING OFFICER Is the Patient experiencing symptoms consistent with COVID?->Yes Date of Symptom Onset->10/12/23 Reason for testing?->Symptomatic [facility] MICROBIOLOGY - GENER AL ORDERABLES Final Result [facility] [id number] [facility] [place] [address] * Throat culture Throat (10/19/2023 11:25 AM TRAFFIC DIVISION COMMANDING OFFICER) Report Final Report: No growth of pathogens. [facility] Comment:Testing performed by : [facility], [address] [facility], [place]., [address] Throat 10/19/2023 11:2 5 AM TRAFFIC DIVISION COMMANDING OFFICER 10/19/2023 5:58 PM TRAFFIC DIVISION COMMANDING OFFICER Narrative [facility] - 10/20/2023 1:22 PM TRAFFIC DIVISION COMMANDING OFFICER Testing performed by [facility] ([phone]). us [facility] MICROBIOLOGY - GENER AL ORDERABLES Final Result [facility] [id number] Department [place] [address] documented in this encounter Visit Diagnoses Diagnosis Acute non-recurrent pansinusitis documented in this encounter Additional Health Concerns Infection Onset Date Last Indicated Resolved Time COVID: Suspected 10/19/2023 10/19/2023 10/19/2023 11:26 AM TRAFFIC DIVISION COMMANDING OFFICER COVID: Suspected 10/19/2023 10/19/2023 10/19/2023 3:55 PM TRAFFIC DIVISION COMMANDING OFFICER RSV, droplet 10/19/2023 10/19/2023 10/26/2023 3:05 AM TRAFFIC DIVISION COMMANDING OFFICER documented as of this encounter Care Teams Building Insulation Installer Relationship Specialty Start Date End Date Ana Pavon NP [address] [facility] [address] [place] [address] PCP - General Family Medicine 06/09/23 Kristen Mancera MD Medical Oncologist/Record Tabulating Clerk Medical Oncology 11/21/20 Lewis Sunshine MD [address] [address] Surgeon Orthopedic Surgery 01/05/23 documented as of this encounter
--- OUTSIDE RECORDS SUMMARY | 2024-10-06 07:03 | XMS_ITS | Referral Summary ---
Author Organization [facility] Address [address] [place] [address] Care Team Providers Care Leather Crafter Name Role Phone Kristen Mancera MD Unavailable Lewis Sunshine MD Unavailable [phone] Ana Pavon NP Primary Care Provider [phone] Allergies No known active allergies Medications levonorgestrel (MIRENA) IUDIndications:Ab normal Uterine Bleeding,Pregnanc y Contraception 1 each by intrauterine route once 02/23/20 14 Active multivitamin capsuleIndication s:Vitamin Deficiency Prevention Take 1 capsule by mouth motorcycle assembler before breakfast Active progesterone (PROMETRIUM) 100 mg capsule Take 1 capsule (100 mg total) by mouth daily Active UNABLE TO FIND Testosterone 22.5 mL (cream) applied nightly Active cream base no.52, bulk, cream Place on the skin Testosterone Active triamcinolone (KENALOG) 0.1 % cream Apply to affected area 1-2 times daily as needed. 15 g 1 06/07/20 24 025 Active ALPRAZolam (XANAX) 0.25 mg tabletIndications :Neutropenia, unspecified type (HCC) TAKE 1 TABLET BY MOUTH 2 TIMES A DAY NEEDED FOR ANXIETY. 60 tablet 07/13/20 24 Active zolpidem (AMBIEN) 10 mg tabletIndications :Neutropenia, unspecified type (HCC) TAKE 1 TABLET BY MOUTH EVERY DAY AT BEDTIME NEEDED FOR SLEEP 30 tablet 1 08/15/20 24 Active Active Problems Problem Noted Date Diagnosed Date Well woman exam 09/12/2023 Overview (09/12/2023): Lab: Pap:h/o abnl at age 22 normal since Labs with pcp Kathryn:due Colonoscopy:cologuard 2021 BMD: Gardasil:did not have. Assessment & Plan (09/12/2023 3:52 PM PAINT GRINDER): Pap done. RTO 12m. I will send the results to the portal. If she has not heard in a week, to call the office. Hormone replacement therapy (HRT) 09/12/2023 Assessment & Plan (02/13/2024 11:40 AM CDT): She is currently only taking the testosterone We will wait and see what happens now that the IUD is removed as far as any menopausal symptoms We discussed that if her period Is going to return I would expect there to be something in the next 2-4 weeks Assessment & Plan (09/12/2023 4:27 PM PAINT GRINDER): We discussed the natural course of progesterone throughout the month and how it is hard for me to comment on her labs not knowing when she had it drawn. I doubts she needs We discussed the benefits of testosterone. Will check cmp and lp yearly. Primary insomnia 05/04/2023 Assessment & Plan (06/07/2024 9:14 AM CDT): Currently controlled on Ambien 10 mg nightly prn Assessment & Plan (06/09/2023 8:42 AM CDT): Currently controlled on Ambien 10 mg nightly prn Assessment & Plan (05/04/2023 9:50 AM CDT): Taking ambien and this helps. Anxiety 05/04/2023 Assessment & Plan (06/07/2024 9:14 AM CDT): Uses Alprazolam on as needed basis (very sparingly). Assessment & Plan (06/09/2023 8:47 AM CDT): Uses Alprazolam on as needed basis, has not had refill for 1 year. Discussed prn use vs maintenance therapy. Assessment & Plan (05/04/2023 9:50 AM CDT): Uses prn xanax. Has not recently use it. Annual physical exam 05/04/2023 Assessment & Plan (05/04/2023 9:58 AM CDT): Flu shot annually Tdap 2020 Shingrix discussed COVID yes Cologuard normal 2021 Annual mamm and WWE Generally in good health. HM updated as per overview. Check routine labwork. Discussed proper diet, regular exercise, adequate water intake, adequate sleep. Information given on health maintenance. 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 Other neutropenia ([facility]) 05/06/2017 IUD contraception 02/22/2014 Overview (12/20/2019): Overview: Mirena 02/22/14 MIRENA #2 02/27/19 Assessment & Plan (02/13/2024 11:39 AM CDT): Removed without difficulty Assessment & Plan (09/12/2023 3:53 PM PAINT GRINDER): Due out 2023 Resolved Problems Problem Noted Date Diagnosed Date Resolved Date Lumbar disc herniation with radiculopathy 01/03/2023 05/04/2023 Overview (01/03/2023): Added automatically from request for surgery [id number] 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[facility]) 12/31/2022 05/04/2023 Breast pain, left 04/09/2022 05/04/2023 Assessment & Plan (04/09/2022 2:43 PM CDT): Will get diagnostic and US left breast. Follow up pending results. Immunizations Name Administration Dates Next Due Influenza, Quadrivalent, Spl it, Preservative Free, Intramuscular 09/29/2022,09/29/2021,06/24/2020,08/04 Influenza, Trivalent, Preser vative Free, Intramuscular 08/20/2015 Influenza, Unspecified 06/09/2023(Deferr ed: Patient Refused),10/10/2022,10/10/2022(Deferre d: Patient Refused),10/10/2021(Deferred: Patient Refused) Pfizer SARS-CoV-2 Monovalent Vaccination (12+ Yrs) PURPLE 01/26/2021,01/05/2021 Tdap 04/07/2021 ZOSTER Recombinant 06/07/2024,04/20/2022 Social History Tobacco Use Types Packs/Day Years Used Date Smoking Tobacco: Never Cigarettes Passive Smoke Exposure: Never Smokeless Tobacco: Never Tobacco Cessation:Counseling Given: Not Answered Humiliation, Afraid, Rape, and Kick questionnair e [...] points, staff should administer the PHQ-9) 0 06/07/2024 Personal Safety Answer Date Recorded Have you ever been in or are you currently in a harmful physical or emotional relationship or is someone making you feel afraid or unsafe? Denies 01/11/2023 Comments No Sex and Gender Information Value Date Recorded Sex Assigned at Not on file Legal Sex Female 10:19 PM PAINT GRINDER Gender Identity Not on file Sexual Orientation Not on file Last Filed Vital Signs Vital Sign Reading Time Taken Comments Blood Pressure 98/62 06/07/2024 8:37 AM CDT Pulse 80 06/07/2024 8:37 AM CDT Temperature 36.8 ??C (98.2 ??F) 06/07/2024 8:37 AM CD T Respiratory Rate 16 10/19/2023 10:59 AM PAINT GRINDER Oxygen Saturation 99% 10/19/2023 10:59 AM PAINT GRINDER Inhaled Oxygen Concentration - - Weight 50.8 kg (112 lb) 06/07/2024 8:37 AM CDT Height 157.5 cm (5' 2 ) 06/07/2024 8:37 AM CDT Body Mass Index 20.49 06/07/2024 8:37 AM CDT Plan of Treatment Not on file Procedures Procedure Name Priority Date/Time Associated Diagnosis Comments SCREENING MAMMOGRAM BILATERAL W PAPO W IMPLANTS Schedule Routine, Read Routine (OP Routine) 04/06/2024 11:19 AM CDT Encounter for screening mammogram for malignant neoplasm of breast PAP AND HPV, REFLEX TO HPV GENOTYPES Routine 09/12/2023 4:52 PM PAINT GRINDER Well woman exam STOOL DNA ? COLOGUARD Routine 05/05/2022 10:00 AM CDT Screen for colon cancer from Last 3 Months or Most Recently Relevant to Health Maintenance Results * Screening Mammogram Bilateral w Papo [...] age 40, based on guidelines of the [place] [employer] (ACR Practice Parameter for the Performance of Screening and Diagnostic Mammography) and [place] [employer]. For women [...] suspicious finding in either breast on mammogram. us Ana Pavon PRODUCT MARKETING ENGINEER IMG MAMMO PROCEDURES Final Resul t * Pap and HPV, reflex to HPV Genotypes (09/12/2023 4:52 PM PAINT GRINDER) CLINICAL INFORMATION: [facility] Comment:Routine exam LMP [facility] Comment:09/12/2023 Previous Pap [facility] Comment:NONE GIVEN Prev. Bx [facility] Comment:NONE GIVEN SOURCE: [facility] Comment:Cervix, Endocervix Pap, specimen adequacy [facility] Comment: Satisfactory for evaluation. Endocervical/transformation zone component present. HPV interp [facility] Comment: Cytology Results: Negative for intraepithelial lesion or malignancy. COMMENTS [facility] Comment: This case could not be evaluated with computer assisted technology. The slide was manually screened according to routine procedures. Protein Specialist [facility] Comment: YQ, CT(ASCP) CT screening location: [place] [address] [place] [address] Comment [facility] Comment: EXPLANATORY NOTE: The Pap is a [...] High Risk E6/E7 Not Detected NOT DETECTED [facility] Comment: Not Detected High Risk HPV types (16,18,31,33,35,39,45,51,52, 56,58,59,66,68) were not detected. Other HPV types which cause anogenital lesions may be present. The significance of the other types of HPV in malignant processes has not been established. Methodology: Real Time PCR ? Thin prep 09/12/2023 4:52 PM PAINT GRINDER 09/13/2023 4:30 AM PAINT GRINDER Susan Anderson MD LAB CYTOLOGY [facility] Final Result [facility] [address] [facility] [place] [address] [facility] [address] [facility] [address] [address] * Stool DNA - Cologuard (05/05/2022 10:00 AM CDT) Stool DNA - Cologuard Negative Negative [facility] (CLIA #:[id number]) Comment: NEGATIVE TEST RESULT. A negative Cologuard result indicates a low likelihood that a colorectal cancer (CRC) or advanced adenoma (adenomatous polyps with more advanced pre-malignant features) ??is present. The chance that a person with a negative Cologuard test has a colorectal cancer is less than 1 in 1500 (negative predictive value >99.9%) or has an ??advanced adenoma is less than ??5.3% (negative predictive value 94.7%). These data are based on a prospective cross-sectional study of 10,000 individuals at average risk for colorectal cancer who were screened with both Cologuard and colonoscopy. (Aiden Manning al, N Engl J Med 2014;370(14):1286- 1297) The normal value (reference range) for this assay is negative. COLOGUARD RE-SCREENING RECOMMENDATION: Periodic colorectal cancer screening is an important part of preventive healthcare for asymptomatic individuals at average risk for colorectal cancer. ??Following a negative Cologuard result, the [place] [employer] and U.S. Multi-Society Task Force screening guidelines recommend a Cologuard re-screening interval of 3 years. References: [place] [employer] Guideline for Colorectal Cancer Screening: https://www.cancer.org/cancer/jrykk-yszikd-tjjyiw/jfvuhudwe-xvyyfxkro-vnemyjb/ac s-rec ommendations.html.; Doc DK, Shelley DAVILA, Shyam RemyK, Colorectal Cancer Screening: Recommendations for Physicians and Patients from the U.S. Multi-Society Task Force on Colorectal Cancer Screening , Am J Gastroenterology 2017; 112:9229-5478. TEST DESCRIPTION: Composite algorithmic analysis of stool DNA-biomarkers with hemoglobin immunoassay. ?? Quantitative values of individual biomarkers are not reportable and are not associated with individual biomarker result reference ranges. Cologuard is intended for colorectal cancer screening of adults of either sex, 45 years or older, who are at average-risk for colorectal cancer (CRC). Cologuard has been approved for use by the U.S. FDA. The performance of Cologuard was established in a cross sectional study of average-risk adults aged 50-84. Cologuard performance in patients ages 45 to 49 years was estimated by sub-group analysis of near-age groups. Colonoscopies performed for a positive result may find as the most clinically significant lesion: colorectal cancer [4.0%], advanced adenoma (including sessile serrated polyps greater than or equal to 1cm diameter) [20%] or non- advanced adenoma [31%]; or no colorectal neoplasia [45%]. These estimates are derived from a prospective cross-sectional screening study of 10,000 individuals at average risk for colorectal cancer who were screened with both Cologuard and colonoscopy. (Aiden Bach, N Engl J Med 2014;370(14):5456-2199.) Cologuard may produce a false negative or false positive result (no colorectal cancer or precancerous polyp present at colonoscopy follow up). A negative Cologuard test result does not guarantee the absence of CRC or advanced adenoma (pre-cancer). The current Cologuard screening interval is every 3 years. ([place] [employer] and U.S. Multi-Society Task Force). Cologuard performance data in a 10,000 patient pivotal study using colonoscopy as the reference method can be accessed at the following location: www.[employer]/results. Additional description of the Cologuard test process, warnings and precautions can be found at www.cologuard.com. Stool 05/05/2022 10:0 0 AM CDT 05/06/2022 1:51 PM CDT us Kacey Gonzalez MD LAB BODY FLUIDS AND STOOL S ORDERABLES Final Result [facility] (CLIA #:[id number]) [place] [address] from Last 3 Months or Most Recently Relevant to Health Maintenance Insurance [employer] [id number] ACCESS OOS [employer] Care Teams Leather Crafter Relationship Specialty Start Date End Date Ana Pavon NP [address] [facility] [address] [place], [place] [id number] PCP - General Family Medicine 06/09/23 Kristen Mancera MD Medical Oncologist/Recovery Assistant Medical Oncology 11/21/20 Lewis Sunshine MD [address] [facility] [address] [place] [address] Surgeon Orthopedic Surgery 01/05/23
--- OUTSIDE RECORDS SUMMARY | 2024-10-06 07:03 | XMS_ITS | Encounter Summary ---
Author Organization [facility] Healthcare Address [address] [place] [address] Care Team Providers Care Selling Underwriter Name Role Phone Kristen Mancera MD Unavailable Lewis Sunshine MD Unavailable [phone]- [phone] Ana Pavon NP Primary Care Provider [phone] Reason for Visit * Reason Comments Cough Pt c/o productive co ugh, congestion, rhinorrhea, post nasal drip, sore throat, slight discomfort when swallowing, ear pressure (bilat), fever (101), chest soreness, winded with medial tasks, no sense of smellPt states no nausea, vomiting, chest pain, SOBS/s started x1 week Pt has self medicated with motrin Encounter Details Date Type Department Care Team (Late st Contact Info) Description 10/19/2023 11:00 AM ZIGZAGGER Office Visit [facility] Convenient Care at [address] [address] Kacey Koo PA [address] [place] [address] [address] [place], [place] [id number] Acute non-recurrent pansinusitis (Primary Dx); Exposure to influenza Social History Tobacco Use Types Packs/Day Years [...] on file Legal Sex Female 10:19 PM ZIGZAGGER Gender Identity Not on file Sexual Orientation Not on file documented as of this encounter Last Filed Vital Signs Vital Sign Reading Time Taken Comments Blood Pressure 110/72 10/19/2023 10:59 AM ZIGZAGGER Pulse 83 10/19/2023 10:59 AM ZIGZAGGER Temperature 36.6 ??C (97.8 ??F) 10/19/2023 10:[address] Respiratory Rate 16 10/19/2023 10:59 AM ZIGZAGGER Oxygen Saturation 99% 10/19/2023 10:59 AM ZIGZAGGER Inhaled Oxygen Concentration - - Weight 54.4 kg (120 lb) 10/19/2023 10:59 AM ZIGZAGGER Height 157.5 cm (5' 2 ) 10/19/2023 10:59 AM ZIGZAGGER Body Mass Index 21.95 10/19/2023 10:59 AM ZIGZAGGER documented in this encounter Patient Instructions * Patient Instructions* Kacey Koo PA - 10/19/2023 11:00 AM ZIGZAGGER -add zyrtec, flonase, and sudafed -12 hour generic sudafed from pharmacist -recommend holding antibiotic for a few days as you likely have a viral infection -if no improvement in 2-3 days you may start augmentin AGGER AGGER * Attachments The following attachments cannot be sent through Care Everywhere. * Influenza (Discharge Care) (Puerto Rican) documented in this encounter Ordered Prescriptions Prescription Sig Dispense Quantity Refills Last Filled Start Date End Date amoxicillin-clavul anate (AUGMENTIN) 875-125 mg per tablet Take 1 tablet by mouth 2 (two) times a day for 7 days 14 tablet 10/19/2023 10/26/2023 documented in this encounter Progress Notes * Kacey Koo PA - 10/19/2023 11:00 AM CST Images from the original note were not included. Subjective/Objective Patient ID: Karen Medeiros is a 53 y.o. female. Chief Complaint Cough (Pt c/o productive cough, congestion, rhinorrhea, post nasal drip, sore throat, slight discomfort when swallowing, ear pressure (bilat), fever (101), chest soreness, winded with medial tasks, no sense of smell/Pt states no nausea, vomiting, chest pain, SOB/S/s started x1 week /Pt has self medicated with motrin) Pt presents w/ cold symptoms x 1 week. She c/o cough, nasal congestion, rhinorrhea, post nasal drip, sore throat, bilateral ear pain, fever up to 101, chills. No N/V/D. recently dx w/ flu A. Taking motrin and delsym w/ moderate relief. Review of Systems All systems reviewed and are negative or non contributory for this patient's presentation today other than as stated in the HPI . Physical Exam Constitutional: General: She is not in acute distress. Appearance: She is not ill-appearing or toxic-appearing. HENT: Head: Normocephalic and atraumatic. Right Ear: Tympanic membrane, ear canal and external ear normal. Left Ear: Tympanic membrane, ear canal and external ear normal. Nose: Congestion and rhinorrhea present. Mouth/Throat: Mouth: Mucous membranes are moist. Pharynx: Oropharynx is clear. Posterior oropharyngeal erythema present. No oropharyngeal exudate. Eyes: Conjunctiva/sclera: Conjunctivae normal. Pupils: Pupils are equal, round, and reactive to light. Cardiovascular: Rate and Rhythm: Normal rate and regular rhythm. Heart sounds: Normal heart sounds. Pulmonary: Effort: Pulmonary effort is normal. No respiratory distress. Breath sounds: Normal breath sounds. No wheezing or rhonchi. Musculoskeletal: General: Normal range of motion. Cervical back: Normal range of motion. Skin: General: Skin is warm and dry. Neurological: General: No focal deficit present. Mental Status: She is alert and oriented to person, place, and time. Psychiatric: Mood and Affect: Mood normal. Behavior: Behavior normal. Vitals: 10/19/23 1059 BP: 110/72 BP Location: Right arm Patient Position: Sitting Pulse: 83 Resp: 16 Temp: 36.6 ??C (97.8 ??F) TempSrc: Oral SpO2: 99% Weight: 54.4 kg (120 lb) Height: 157.5 cm (5' 2 ) Assessment/Plan -exposure to flu A from her , pcr pending -symptoms x 7 days, voices concern for sinusitis, states drainage has gotten thicker and is worsening -advised starting sudafed, zyrtec, flonase -if no improvement, did also send out augmentin for her to start in the next few days -all questions and concerns addressed Diagnoses and all orders for this visit: Acute non-recurrent pansinusitis (Primary) - Influenza A/B, RSV, and COVID-19 PCR Nasopharyngeal; Future - POCT rapid strep A - Throat culture Throat; Future - POC Influenza A/B, COVID-19 antigen Exposure to influenza Other orders - amoxicillin-clavulanate (AUGMENTIN) 875-125 mg per tablet; Take 1 tablet by mouth 2 (two) times aday for 7 days Recent Results (from the past 4 hour(s)) POCT rapid strep A Collection Time: 10/19/23 11:10 AM Result Value Ref Range Rapid Strep A, POC Negative Negative POC Influenza A/B, COVID-19 antigen Collection Time: 10/19/23 11:15 AM Result Value Ref Range Influenza A Ag, POC Negative Negative Influenza B Ag, POC Negative Negative COVID-19 Ag POC Presumptive Negative Presumptive Negative, Invalid Disposition Treatment plan including expectations, follow up, and return precautions discussed with patient/parent, verbalizes understanding. Medication dosage, use, and potential adverse reactions discussed with patient/parent. Advised to follow up with PCP if symptoms do not resolve as expected or sooner if condition worsens. Signs/symptoms warranting ER evaluation reviewed. Patient and/or guardian was given an opportunity to ask questions, questions answered. LILIA Oates 10/19/23 11:34 AM Cosigned by David Gómez MD at 10/19/2023 3:44 PM ZIGZAGGER AGGER AGGER documented in this encounter Plan of Treatment Not on file documented as of this encounter Procedures Procedure Name Priority Date/Time Associated Diagnosis Comments POC INFLUENZA A/B, COVID-19 ANTIGEN Routine 10/19/2023 11:15 AM ZIGZAGGER Acute non-recurrent pansinusitis POCT RAPID STREP Routine 10/19/2023 11:1 0 AM ZIGZAGGER Acute non-recurrent pansinusitis documented in this encounter Results * Throat culture Throat (10/19/2023 11:25 AM ZIGZAGGER) Report Final Report: No growth of pathogens. JAG ARMSTRONG Comment:Testing performed by : [facility], [address] [facility] [place]., [address] Throat 10/19/2023 11:2 5 AM ZIGZAGGER 10/19/2023 5:58 PM ZIGZAGGER Narrative JAG ARMSTRONG - 10/20/2023 1:22 PM ZIGZAGGER Testing performed by [facility] ([phone]). us Kacey [facility] MICROBIOLOGY - [facility] AL ORDERABLES Final Result JAG ARMSTRONG [id number] [place] [address] * (ABNORMAL) Influenza A/B, RSV, and COVID-19 PCR Nasopharyngeal (10/19/2023 11:25 AM ZIGZAGGER) Pathologist [facility] COVID-19 RNA Negative Negative [facility] Influenza A RNA Negative Negative [facility] Influenza B RNA Negative Negative [facility] RSV RNA Positive(A) Negative [facility] Comment: Interpretive data: Testing performed by [facility]. This test is performed using the [employer] Xpert Xpress CoV-2/Flu/RSV plus assay. This is a multiplex, real-time reverse transcriptase PCR assay intended for the qualitative detection of nucleic acid from SARS-CoV-2, influenza A, influenza B, and respiratory syncytial virus. This assay has been cleared by the [place] Food and Drug administration. The performance characteristics have been verified by the [facility]. ??Results must be considered in the clinical context, and a negative result does not rule out infection. Interpretive Data last revised 2023 Nasopharyngeal 10/19/2023 11 :25 AM ZIGZAGGER 10/19/2023 2:30 PM ZIGZAGGER Narrative [facility] - 10/19/2023 3:53 PM ZIGZAGGER Is the Patient experiencing symptoms consistent with COVID?->Yes Date of Symptom Onset->10/12/23 Reason for testing?->Symptomatic Kacey [facility] MICROBIOLOGY - GENER AL ORDERABLES Final Result JAG ARMSTRONG [id number] [address] Department [place] [address] * POC Influenza A/B, COVID-19 antigen (10/19/2023 11:15 AM ZIGZAGGER) Influenza A Ag, POC Negative Negative [facility] Influenza B Ag, POC Negative Negative [facility] COVID-19 Ag POC Presumptive Negative Presumptive Negative, Invalid [facility] Nasal 10/19/2023 11:1 5 AM ZIGZAGGER us Kacey [facility] POINT OF CARE TEST ORDER ANALI Final Result [facility] [address] [place] [address], [facility] * POCT rapid strep A (10/19/2023 11:10 AM ZIGZAGGER) Rapid Strep A, POC Negative Negative Swab 10/19/2023 11:1 0 AM ZIGZAGGER Kacey RODRIGUES POINT OF CARE TEST ORDER ANALI Final Result documented in this encounter Visit Diagnoses Diagnosis Acute non-recurrent pansinusitis- Primary Exposure to influenza Contact with or exposure to other viral diseases Acute non-recurrent pansinusitis documented in this encounter Additional Health Concerns Infection Onset Date Last Indicated Resolved Time COVID: Suspected 10/19/2023 10/19/2023 10/19/2023 11:26 AM ZIGZAGGER documented as of this encounter Care Teams Selling Underwriter Relationship Specialty Start Date End Date Ana Pavon NP [address] [place] [address] PCP - General Family Medicine 06/09/23 Kristen Mancera MD Medical Oncologist/Tower Switch Operator Medical Oncology 11/21/20 Lewis Sunshine MD [address] [address] Surgeon Orthopedic Surgery 01/05/23 documented as of this encounter
--- OUTSIDE RECORDS SUMMARY | 2024-10-06 07:03 | XMS_ITS | Encounter Summary ---
Author Organization [facility] Healthcare Address [address] [place] [address] Care Team Providers Care Merchandise Examiner Name Role Phone Kristen Mancera MD Unavailable Lewis Sunshine MD Unavailable [phone] Ana Pavon NP Primary Care Provider [phone] Reason for Visit * Reason Comments IUD Removal Encounter Details Date Type Department Care Team (Late st Contact Info) Description 02/13/2024 11:15 AM CDT Procedure visit [facility] Medical Group Women's Health Care at [address] [address] Susan Anderson MD [address] [place] [address] IUD contraception (Primary Dx); Hormone replacement therapy (HRT) Social History Tobacco [...] on file 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 Electronic Organ Mechanic Visit IUD Removal Subjective: Karen Medeiros is a 53 y.o. year old female who presents for iud removal. She was bleeding monthly, but not now. had prostatectomy so she does not need contraception. No hf/ns Only on testosterone. Contraception:Mirena IUD Are you wanting to be in the next year?no No LMP recorded. (Menstrual status: IUD). Menstrual History: No LMP recorded. (Menstrual status: IUD). Sexual History: OB History 7 Para 4 Term 4 [...] oz) F Vag-Spont Epidural Living Location: Other Objective: BP 120/70 (BP Location: Right arm, Patient Position: Sitting) Ht 157.5 cm (5' 2 ) Wt 114 lb (51.7 kg) BMI 20.85 kg/m?? Physical Exam: Physical Exam Vitals reviewed. Exam conducted with a repairer controller tester present. Constitutional: Appearance: Normal appearance. She is normal weight. HENT: Head: Normocephalic and atraumatic. Genitourinary: Pelvic exam was performed with patient supine. Rectum normal and vagina normal. Right labia: normal. Left Labia: normal. Cervix: visible IUD strings. Cervix: Normal exam. Genitourinary Comments: BUS negative The IUD strings were easily visible. They were grasped with a ring forceps and with gentle traction the IUD was removed. It was shown to the patient and then disposed of. Musculoskeletal: Right lower leg: No edema. Left lower leg: No edema. Neurological: Mental Status: She is alert. Psychiatric: Mood and Affect: Mood normal. Behavior: Behavior normal. Thought Content: Thought content normal. Judgment: Judgment normal. Assessment and Plan: Diagnoses and all orders for this visit: IUD contraception (Primary) Assessment & Plan: Removed without difficulty Hormone replacement therapy (HRT) Assessment & Plan: She is currently only taking the testosterone We will wait and see what happens now that the IUD is removed as far as any menopausal symptoms We discussed that if her period Is going to return I would expect there to be something in the next2-4 weeks Return in about 7 months (around 09/14/2024) for wwe. Susan Anderson MD 02/13/2024 documented in this encounter Miscellaneous Notes * Assessment & Plan Note - Susan Anderson MD - 02/13/2024 11:40 AM CDTAssociated Problem(s): Hormone replacement therapy (HRT) She is currently only taking the testosterone We will wait and see what happens now that the IUD is removed as far as any menopausal symptoms We discussed that if her period Is going to return I would expect there to be something in the next2-4 weeks * Assessment & Plan Note - Susan Anderson MD - 02/13/2024 11:39 AM CDTAssociated Problem(s): IUD contraception Removed without difficulty documented in this encounter Plan of Treatment Not on file documented as of this encounter Visit Diagnoses Diagnosis IUD contraception- Primary Hormone replacement therapy (HRT) documented in this encounter Care Teams Merchandise Examiner Relationship Specialty Start Date End Date Ana Pavon NP [address] [facility] [address] [place] [address] PCP - General Family Medicine 06/09/23 Kristen Mancera MD Medical Oncologist/Web Project Manager Medical Oncology 11/21/20 Lewis Sunshine MD [address] [facility] [address] [place] [address] Surgeon Orthopedic Surgery 01/05/23 documented as of this encounter
--- OUTSIDE RECORDS SUMMARY | 2024-10-06 07:03 | XMS_ITS | Clinical Summary ---
Author Organization [facility] Address [address] [place] [address]. [place], [place] [address] [place] [address] Care Team Providers Care Cloth Tester Quality Name Role Phone Unavailable Primary Care Provider Unavailabl e Social History Tobacco Use Types Packs/Day Years Used Date Smoking Tobacco: Never Assessed Comments Unknown Sex and Gender Information Value Date Recorded Sex Assigned at Not on file Legal Sex Female 6:22 PM CDT Gender Identity Not on file Sexual Orientation Not on file Plan of Treatment Health Maintenance Due Date Last Done Comments Cervical Cancer Screening Pa p Smear (Age 30 to 64) Every 3 Years 1971 Colorectal Cancer Screening Colonoscopy (10 Years) 1971 Annual Physical 1974 Hepatitis C 1989 DTaP, Tdap and Td Vaccines ( 1 - Tdap) 1990 Hepatitis B Vaccines (1 of 3 - 19+ 3-dose series) 1990 Cervical Cancer Screening Pa p with HPV Testing (Age 30 to 64) Every 5 Years 2001 Cervical Cancer Screening with HPV 2001 Mammogram Screening 2011 Zoster Vaccines (1 of 2) 2021 COVID-19 Vaccine (2023-2 5 season) 2024 Influenza Adult (#1) 2024 Meningococcal Vaccine Aged Out No sangeeta amy eligible based on patient's age to complete this topic Pneumococcal Vaccine: Pediat rics (0 to 5 Years) and At-Risk Patients (6 to 64 Years) Aged Out No longer eligible b ased on patient's age to complete this topic RSV Immunizations Under 20 Months Aged Out No longer eligible based on patient's age to complete this topic
--- OUTSIDE RECORDS SUMMARY | 2024-10-06 07:03 | XMS_ITS | Encounter Summary ---
Author Organization [facility] Medical Group Address [address] [place] [address] [facility] [address] [place] [address] Care Team Providers Care Print Room Worker Name Role Phone Kristen Mancera MD Unavailable Kacey Gonzalez MD Primary Care Provider [phone] Lewis Sunshine MD Unavailable [phone] Encounter Details Date Type Department Care Team (Late st Contact Info) Description 05/04/2023 Telephone [facility] Medical [facility] [address] [address] Kacey Gonzalez MD [facility] [place][note 2][address] [address] Social History Tobacco Use Types Packs/Day Years [...] on file 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 Work on low sugar/low carb diet to prevent this from becoming diabetes in the future. Cholesterol elevated. 10 yr risk of heart attack and stroke is 0.9%. No need for addition of or changes to cholesterol meds at this time. Work on diet low in saturated fat (ie: chips, fried food, fast food, etc). Thyroid normal The 10-year ASCVD risk score (Demarco MELENDEZ, et al., 2019) is: 0.9% Values used to calculate the score: Age: 52 years Sex: Female Is Non- : No Diabetic: No Tobacco smoker: No Systolic Blood Pressure: 112 mmHg Is BP treated: No HDL Cholesterol: 83 mg/dL Total Cholesterol: 252 mg/dL Taylor documented in this encounter Plan of Treatment Not on file documented as of this encounter Visit Diagnoses Not on filedocumented in this encounter Care Teams Print Room Worker Relationship Specialty Start Date End Date Kacey Gonzalez MD PCP - General Family Medicine 04/07/21 06/08/23 Kristen Mancera MD Medical Oncologist/Forging Press Operator Medical Oncology 11/21/20 Lewis Sunshine MD [address] [address] Surgeon Orthopedic Surgery 01/05/23 documented as of this encounter
--- OUTSIDE RECORDS SUMMARY | 2024-10-06 07:03 | XMS_ITS | Clinical Summary ---
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 Assessment & Plan (09/12/2023 3:52 PM TITLE AGENT): Pap done. RTO 12m. 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 Other neutropenia ([facility]) 05/06/2017 IUD contraception 02/22/2014 Overview (12/20/2019): Overview: Mirena 02/22/14 MIRENA #2 02/27/19 Assessment & Plan (02/13/2024 11:39 AM CDT): Removed without difficulty Assessment & Plan (09/12/2023 3:53 PM TITLE AGENT): Due out 2023 Resolved Problems Problem Noted Date Diagnosed Date Resolved Date Lumbar disc herniation with radiculopathy 01/03/2023 05/04/2023 Overview (01/03/2023): Added automatically from request for surgery [id number] 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[facility]) 12/31/2022 05/04/2023 Breast pain, left 04/09/2022 [...] PURPLE 01/26/2021,01/05/2021 Tdap 04/07/2021 ZOSTER Recombinant 06/07/2024,04/20/2022 Surgical History Surgery Date Site/Laterality Comments BREAST SURGERY 04/09/2003 - 05/09/2003 FL UPPER GI AIR CONTRAST W KUB 11/12/2022 Left HAND SURGERY Right saggital band surgery LUMBAR DISCECTOMY SPINE SURGERY 2022 Medical History Medical History Date Comments Anxiety 2000 Breast pain, left 04/09/2022 Neutropenia (HCC) 05/06/2017 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CMS/HCC) (HCC) 12/31/2022 Lumbar disc herniation with radiculopathy 01/03/2023 Added automatically from [email or web address] for surgery [id number] Family History Medical History Relation Name Comments No Known Problems Brother Hypertension Father Anemia Mother Marina [place] Cancer Mother Marina [place] Hypertension Mother Marina [place] Non-Hodgkin's Lymphoma Mother Marina [place] No Known Problems Sister 1 Stroke Sister 2 Mer [place]jo Anesthesia problems Neg 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 , 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, 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 09/12/23 Relation Name Status Comments Brother Father Mother Marina [place] Sister 1 Sister 2 Mer [place] Social History Tobacco Use Types Packs/Day Years [...] on file Legal Sex Female 10:19 PM TITLE AGENT Gender Identity Not on file Sexual Orientation Not on file Obstetrics History Para Term AB IAB SAB Ectopic Multiple Livin g Live Births 7 4 4 3 3 4 4 Date Outcome GA Total Labor Labor//3rd Weight Sex Type Anes PTL Ankita A1 A5 Name Clin SAB SAB SAB 10/1996 Term 12h 00m 3.714 kg (8 lb 3 oz) M Vag-S pont Epidur al Livin g Complications:None Delivery Location:Other 12/1998 Term 8h 00m 3.232 kg (7 lb 2 oz) M Vag-S pont Epidur al Livin g Complications:None Delivery Location:Other 09/2000 Term 3.544 kg (7 lb 13 oz) F Vag-S pont Epidur al Livin g Complications:None Delivery Location:Other 06/2006 Term 3.402 kg (7 lb 8 oz) F Vag-S pont Epidur al Livin g Complications:None Delivery Location:Other Last Filed Vital Signs Vital Sign Reading Time Taken Comments Blood Pressure 98/62 06/07/2024 8:37 AM CDT Pulse 80 06/07/2024 8:37 AM CDT Temperature 36.8 ??C (98.2 ??F) 06/07/2024 8:37 AM CD T Respiratory Rate 16 10/19/2023 10:59 AM TITLE AGENT Oxygen Saturation 99% 10/19/2023 10:59 AM TITLE AGENT Inhaled Oxygen Concentration - - Weight 50.8 kg (112 lb) 06/07/2024 8:37 AM CDT Height 157.5 cm (5' 2 ) 06/07/2024 8:37 AM CDT Body Mass Index 20.49 06/07/2024 8:37 AM CDT Plan of Treatment Health Maintenance Due Date Last Done Comments Hepatitis C Screening 1971 Pneumococcal vaccine <65 (1 of 2 - PCV) 1977 Hepatitis B Screening 1989 Covid-19 Vaccine (5 - 2023-2 5 season) 2024 09/29/2022, 09/29/2021, 01/26/2021, Additional history exists Influenza Vaccine (#1) 2024 , 09/29/2022, 09/29/2021, Additional history exists Cervical Cancer Screening 09/12/2024 09/12/2023 Breast Cancer Screening-Mammogram 04/06/2025 04/06/2024, 04/28/2022, 07/15/2020, Additional history exists Colon Cancer Screening-DNA Stool 05/05/2025 05/05/20 22 Depression Screening 06/07/2025 06/07/2024, 11/10/2023, 09/12/2023, Additional history exists Regular Well Visit/Exam 18-64 06/07/2025, 09/12/2023, 05/04/2023, Additional history exists DTaP/Tdap/Td Vaccine (2 - Td or Tdap) 04/07/2031 04/07/2021 Colon Cancer Screening-Colonoscopy Discontinued 04/29/2022 Zoster Vaccine Completed 06/07/2024, 04/20/2022 Procedures Procedure Name Priority Date/Time Associated Diagnosis Comments SCREENING MAMMOGRAM BILATERAL W PAPO W IMPLANTS Schedule Routine, Read Routine (OP Routine) 04/06/2024 11:19 AM CDT Encounter for screening mammogram for malignant neoplasm of breast PAP AND HPV, REFLEX TO HPV GENOTYPES Routine 09/12/2023 4:52 PM TITLE AGENT Well woman exam STOOL DNA ? COLOGUARD [...] age 40, based on guidelines of the [place] [employer] (ACR Practice Parameter for the Performance of Screening and Diagnostic Mammography) and [place] [employer]. For women [...] either breast on mammogram. us Ana Pavon NP IMG MAMMO PROCEDURES Final Resul t * Pap and HPV, reflex to HPV Genotypes (09/12/2023 4:52 PM TITLE AGENT) CLINICAL INFORMATION: [facility] Comment:Routine exam LMP [facility] Comment:09/12/2023 Previous Pap [facility] Comment:NONE GIVEN Prev. Bx [facility] Comment:NONE GIVEN SOURCE: [facility] Comment:Cervix, Endocervix Pap, specimen adequacy [facility] Comment: Satisfactory for evaluation. Endocervical/transformation zone component present. HPV interp [facility] Comment: Cytology Results: Negative for intraepithelial lesion or malignancy. COMMENTS [facility] Comment: This case could not be evaluated with computer assisted technology. The slide was manually screened according to routine procedures. Gathering Machine Feeder Que [facility] Comment: YQ, CT(ASCP) CT screening location: [place] [address] Administration JULIO CESAR Zhang [address] Comment [facility] Comment: EXPLANATORY NOTE: The Pap is a [...] High Risk E6/E7 Not Detected NOT DETECTED youbeQ - [employer] /[facility] Comment: Not Detected High Risk HPV types (16,18,31,33,35,39,45,51,52, 56,58,59,66,68) were not detected. Other HPV types which cause anogenital lesions may be present. The significance of the other types of HPV in malignant processes has not been established. Methodology: Real Time PCR ? Thin prep 09/12/2023 4:52 PM TITLE AGENT 09/13/2023 4:30 AM TITLE AGENT us Susan Anderson MD LAB CYTOLOGY ORDERA SAIRA Final Result [place] [address] Administration JULIO CESAR [place] [address] youbeQ - [facility] [employer]/[facility] [address] [facility] [place] [address] * Stool DNA - Cologuard (05/05/2022 10:00 AM CDT) Stool DNA - Cologuard Negative Negative Chloe + Isabel (CLIA #:[id number]) Comment: NEGATIVE TEST RESULT. A negative Cologuard [...] screened with both Cologuard and colonoscopy. (Aiden Lao et al, N Engl J Med 2014;370(14):1286- 1297) The normal value (reference range) for this assay is negative. COLOGUARD RE-SCREENING RECOMMENDATION: Periodic colorectal cancer screening is an important part of preventive healthcare for asymptomatic individuals at average risk for colorectal cancer. ??Following a negative Cologuard result, the [place] [employer] and U.S. Multi-Society Task Force screening guidelines recommend a Cologuard re-screening interval of 3 years. References: [place] [employer] Guideline for Colorectal Cancer Screening: https://www.cancer.org/cancer/xeahj-msyfzv-dpfpck/djhtboiyy-pxoxvluxl-laogpjn/ac s-rec ommendations.html.; Doc MELENDEZ, Shelley CR, Shyam RemyK, Colorectal Cancer Screening: Recommendations for Physicians and Patients from the U.S. Multi-Society Task Force on Colorectal Cancer Screening , Am J Gastroenterology 2017; 112:1828-4708. TEST DESCRIPTION: Composite algorithmic analysis of stool [...] were screened with both Cologuard and colonoscopy. (Aidne Manning al, N Engl J Med 2014;370(14):8713-9729.) Cologuard may produce a false negative or false positive result (no colorectal cancer or precancerous polyp present at colonoscopy follow up). A negative Cologuard test result does not guarantee the absence of CRC or advanced adenoma (pre-cancer). The current Cologuard screening interval is every 3 years. ([place] [employer] and U.S. Multi-Society Task Force). Cologuard performance data in a 10,000 patient pivotal study using colonoscopy as the reference method can be accessed at the following location: www.[employer]Tell.[employer]/results. Additional description of the Cologuard test process, warnings and precautions can be found at www.cologuard.com. Stool 05/05/2022 10:0 0 AM CDT 05/06/2022 1:51 PM CDT us Kacey Gonzalez MD LAB BODY FLUIDS AND STOOL S ORDERABLES Final Result [employer] (CLIA #:[id number]) [place] [address] from Last 3 Months or Most Recently Relevant to Health Maintenance Insurance [address] [place] [employer] [place] [employer] [address] [address] [place] [id number] [place] [employer] Care Teams Relationship Assoc Relationship Specialty Start Date End Date Ana Pavon NP [address] [address] PCP - General Family Medicine 06/09/23 Kristen Mancera MD Medical Oncologist/Materials Supervisor Medical Oncology 11/21/20 Lewis Sunshine MD [address] [address] Surgeon Orthopedic Surgery 01/05/23
--- OUTSIDE RECORDS SUMMARY | 2024-10-06 07:03 | XMS_ITS | Encounter Summary ---
Author Organization [facility] Address [address] [place] [address] Care Team Providers Care Cook Chef Name Role Phone Kristen Mancera MD Unavailable Lewis Sunshine MD Unavailable [phone] Ana Pavon NP Primary Care Provider [phone] Reason for Visit * Reason Comments UTI follow up Encounter Details Date Type Department Care Team (Late st Contact Info) Description 11/10/2023 2:00 PM MED ASST Telemedicine [facility] Primary Care at [address] [address] Ana Pavon NP [address] [place] [address] [address] [place] [address] Urinary tract infection without hematuria, site unspecified (Primary Dx) Social History Tobacco Use Types [...] on file Legal Sex Female 10:19 PM MED ASST Gender Identity Not on file Sexual Orientation Not on file documented as of this encounter Ordered Prescriptions Prescription Sig Dispense Quantity Refills Last Filled Start Date End Date nitrofurantoin monohydrate (MACROBID) 100 mg capsule Take 1 capsule (100 mg total) by mouth 2 (two) times a day for 7 days 14 capsule 11/10/2023 4 documented in this encounter Progress Notes * Ana Pavon NP - 11/10/2023 2:00 PM CST Images from the original note were not included. Patient ID: Karen Medeiros is a 53 y.o. female. This was a telemedicine visit with Karen Medeiros which took place via Real-time video connection ([employer], [employer] or similar). During the visit, I waslocated [place] and the patient was located [place] The session started at 1400 and ended at 1408. Assessment/Plan Diagnoses and all orders for this visit: Urinary tract infection without hematuria, site unspecified (Primary) Comments: Tx as UTI, Macrobid rx'd if no improvement will need UA with Culture Orders: - Urinalysis reflex to microscopic and culture Urine, bladder; Future Other orders - nitrofurantoin monohydrate (MACROBID) 100 mg capsule; Take 1 capsule (100 mg total) by mouth 2 (two) times a day for 7 days Follow up if not improving Chief Complaint UTI follow up Patient had positive UTI infection per drugstore UA stick. Difficulty Urinating This is a new problem. The current episode started in the past 7 days (2 days ago). The problem occurs every urination. The problem has been gradually worsening. The quality of the pain is described as burning. The pain is at a severity of 4/10. There has been no fever. She is Sexually active. There is No history of pyelonephritis. Associated symptoms include frequency and urgency. Pertinent negatives include no chills, discharge, flank pain, hematuria, hesitancy, nausea, possible , sweats or vomiting. Review of Systems Constitutional: Negative for chills. Respiratory: Negative for shortness of breath. Cardiovascular: Negative for chest pain. Gastrointestinal: Negative for nausea and vomiting. Genitourinary: Positive for dysuria, frequency and urgency. Negative for flank pain, hematuria and hesitancy. Psychiatric/Behavioral: Negative for suicidal ideas. There were no vitals taken for this visit. Physical Exam Constitutional: Appearance: Normal appearance. HENT: Head: Normocephalic. Right Ear: External ear normal. Left Ear: External ear normal. Eyes: Extraocular Movements: Extraocular movements intact. Pulmonary: Effort: Pulmonary effort is normal. Neurological: General: No focal deficit present. Mental Status: She is alert and oriented to person, place, and time. Psychiatric: Mood and Affect: Mood normal. Behavior: Behavior normal. Ana Pavon NP ASST documented in this encounter Plan of Treatment Scheduled Orders Name Type Priority Associated Diagnoses Orde r Schedule Urinalysis reflex to microscopic and culture Urine, bladder Microbiology Routine Urinary tract infection without hematuria, site unspecified Expected: 11/10/2023, Expires: 11/10/2024 documented as of this encounter Visit Diagnoses Diagnosis Urinary tract infection without hematuria, site unspecified- Primary documented in this encounter Care Teams Cook Chef Relationship Specialty Start Date End Date Ana Pavon NP [address] [facility] [address] [place] [address] PCP - General Family Medicine 06/09/23 Kristen Mancera MD Medical Oncologist/Senior Specialist Medical Oncology 11/21/20 Lewis Sunshine MD [address] [address] Surgeon Orthopedic Surgery 01/05/23 documented as of this encounter
--- OUTSIDE RECORDS SUMMARY | 2024-10-06 07:03 | XMS_ITS | Encounter Summary ---
Author Organization [facility] Address [address] [place] [address] Phone Care Team Providers Care Driver/Guide Name Role Phone Kristen Mancera MD Unavailable Kacey Gonzalez MD Primary Care Provider [phone] Lewis Sunshine MD Unavailable [phone] Encounter Details Date Type Department Care Team (Late st Contact Info) Description 03/04/2023 10:45 AM CDT Lab [facility] Oncology [address] [facility] 7th [place] [address] [place] [address] Neutropenia, unspecified type (HCC) Social History Tobacco Use Types Packs/Day Years [...] on file 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 Gender Identity Not on file Sexual Orientation Not on file documented as of this encounter Plan of Treatment Not on file documented as of this encounter Visit Diagnoses Diagnosis Neutropenia, unspecified type (HCC) documented in this encounter Orders Appointment Requests Count Last Ordered Date Fi rst Ordered Date ONCBCN LAB APPOINTMENT 1 03/04/2023 documented in this encounter Care Teams Driver/Guide Relationship Specialty Start Date End Date Kacey Gonzalez MD PCP - General Family Medicine 04/07/21 06/08/23 Kristen Mancera MD Medical Oncologist/Plasma Specialist Medical Oncology 11/21/20 Lewis Sunshine MD [address] [address] Surgeon Orthopedic Surgery 01/05/23 documented as of this encounter
--- OUTSIDE RECORDS SUMMARY | 2024-10-06 07:03 | XMS_ITS | Encounter Summary ---
Author Organization [facility] Address [address] [facility] [address] [place] [address] Care Team Providers Care Driver Courier Name Role Phone Kristen Mancera MD Unavailable Lewis Sunshine MD Unavailable [phone] Everette Moyer NP Primary Care Provider [phone] Reason for Visit * Reason Comments Getting Established Encounter Details Date Type Department Care Team (Late st Contact Info) Description 06/09/2023 8:00 AM CDT Office Visit [facility] Medical [facility] Primary Care at [address] [address] Everette Moyer NP [address] [place] [address] [address] [place] [address] Primary insomnia (Primary Dx); Anxiety; Neutropenia, unspecified type (HCC); Encounter for screening mammogram for malignant neoplasm of breast; Neutropenia, unspecified type (HCC) Social History Tobacco [...] on file 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 Gender Identity Not on file Sexual Orientation Not on file documented as of this encounter Last Filed Vital Signs Vital Sign Reading Time Taken Comments Blood Pressure 106/66 06/09/2023 8:13 AM CDT Pulse 76 06/09/2023 8:13 AM CDT Temperature 36.8 ??C (98.3 ??F) 06/09/2023 8:13 AM CD T Respiratory Rate 18 06/09/2023 8:13 AM CDT Oxygen Saturation 99% 06/09/2023 8:13 AM CDT Inhaled Oxygen Concentration - - Weight 56.7 kg (125 lb) 06/09/2023 8:13 AM CDT Height 157.5 cm (5' 2 ) 06/09/2023 8:13 AM CDT Body Mass Index 22.86 06/09/2023 8:13 AM CDT documented in this encounter Patient Instructions * Patient Instructions* Vanessa Armas MA - 06/09/2023 8:00 AM CDT Images from the original note were not included. Thank you for choosing us with your health care needs. Dr Olivas, Everette Moyer HOTEL ASSOCIATE, Vanessa Hanna,and Jia Roland documented in this encounter Ordered Prescriptions Prescription Sig Dispense Quantity Refills Last Filled Start Date End Date zolpidem (AMBIEN) 10 mg tabletIndications: Sleep-Onset Insomnia Take 1 tablet (10 mg total) by mouth nightly as needed for sleep 30 tablet 1 06/09/2023 ALPRAZolam (XANAX) 0.25 mg tabletIndications: anxiety Take 1 tablet (0.25 mg total) by mouth 2 (two) times a day as needed for anxiety 60 tablet 06/09/2023 4 documented in this encounter Progress Notes * Everette Moyer NP - 06/09/2023 8:00 AM CDT Images from the original note were not included. Patient ID: Karen Medeiros is a 52 y.o. female. Assessment/Plan Diagnoses and all orders for this visit: Primary insomnia (Primary) Assessment & Plan: Currently controlled on Ambien 10 mg nightly prn Anxiety Assessment & Plan: Uses Alprazolam on as needed basis, has not had refill for 1 year. Discussed prn use vs maintenancetherapy. Neutropenia, unspecified type (HCC) Comments: Follows with Hematology Orders: - ALPRAZolam (XANAX) 0.25 mg tablet; Take 1 tablet (0.25 mg total) by mouth 2 (two) times a day as needed for anxiety Encounter for screening mammogram for malignant neoplasm of breast - Screening Mammogram Bilateral W Papo; Future Follow up 1 Year Chief Complaint Getting Established New patient here to establish care. Patient here today to discuss chronic conditions and discuss labs/have labs ordered. Previous PCP left practice. Review of Systems Respiratory: Negative for shortness of breath. Cardiovascular: Negative for chest pain. Psychiatric/Behavioral: Negative for suicidal ideas. BP 106/66 (BP Location: Left arm, Patient Position: Sitting) Pulse 76 Temp 36.8 ??C (98.3 ??F) (Temporal) Resp 18 Ht 157.5 cm (5' 2 ) Wt 56.7 kg (125 lb) SpO2 99% BMI 22.86 kg/m?? Physical Exam Constitutional: Appearance: Normal appearance. HENT: Head: Normocephalic. Right Ear: External ear normal. Left Ear: External ear normal. Eyes: Extraocular Movements: Extraocular movements intact. Cardiovascular: Rate and Rhythm: Normal rate and regular rhythm. Heart sounds: Normal heart sounds. Pulmonary: Effort: Pulmonary effort is normal. Breath sounds: Normal breath sounds. Neurological: General: No focal deficit present. Mental Status: She is alert and oriented to person, place, and time. Psychiatric: Mood and Affect: Mood normal. Behavior: Behavior normal. Everette Moyer NP Cosigned by Jim Olivas MD at 06/09/2023 9:21 AM CDT documented in this encounter Miscellaneous Notes * Assessment & Plan Note - Everette Moyer NP - 06/09/2023 8:47 AM CDTAssociated Problem(s): Anxiety Uses Alprazolam on as needed basis, has not had refill for 1 year. Discussed prn use vs maintenancetherapy. * Assessment & Plan Note - Everette Moyer NP - 06/09/2023 8:42 AM CDTAssociated Problem(s): Primary insomnia Currently controlled on Ambien 10 mg nightly prn * Addendum Note - Everette Moyer NP - 06/09/2023 8:00 AM CDTAddended by: EVERETTE MOYER on: 06/09/2023 08:50 AM Modules accepted: Orders documented in this encounter Plan of Treatment Not on file documented as of this encounter Visit Diagnoses Diagnosis Primary insomnia- Primary Persistent disorder of initiating or maintaining sleep Anxiety Anxiety state, unspecified Neutropenia, unspecified type (HCC) Encounter for screening mammogram for malignant neoplasm of breast documented in this encounter Discontinued Medications Medication Sig Discontinue Reason Start Date End Da te ALPRAZolam (XANAX) 0.25 mg tabletIndications:Neutrop enia, unspecified type (HCC) Take 1 tablet (0.25 mg total) by mouth 2 (two) times a day Reorder 08/03/2022 06/09/2023 zolpidem (AMBIEN) 10 mg tabletIndications:Neutrop enia, unspecified type (HCC) TAKE 1 TABLET BY MOUTH EVERY DAY AT NIGHT Reorder 12/23/2022 06/09/2023 documented as of this encounter Care Teams Driver Courier Relationship Specialty Start Date End Date Everette Moyer NP [address] [facility] [address] [place] [address] PCP - General Family Medicine 06/09/23 Kristen Mancera MD Medical Oncologist/Finished Stock Inspector Medical Oncology 11/21/20 Lewis Sunshine MD [address] [facility] [address] [place] [address] Surgeon Orthopedic Surgery 01/05/23 documented as of this encounter
--- OUTSIDE RECORDS SUMMARY | 2024-10-06 07:03 | XMS_ITS | Encounter Summary ---
Author Organization [facility] Healthcare Address [address] [place] [address] Care Team Providers Care Internal Audit Senior Manager Name Role Phone Kristen Mancera MD Unavailable Lewis Sunshine MD Unavailable [phone] Ana Pavon NP Primary Care Provider [phone] Reason for Visit * Reason Comments Annual Exam Pt states for annual exam. Pt has no current complaints. 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 Gender Identity Not on file Sexual Orientation Not on file documented as of this encounter Last Filed Vital Signs Vital Sign Reading Time Taken Comments Blood Pressure 98/62 06/07/2024 8:37 AM CDT Pulse 80 06/07/2024 8:37 AM CDT Temperature 36.8 ??C (98.2 ??F) 06/07/2024 8:37 AM CD T Respiratory Rate - - Oxygen Saturation - - Inhaled Oxygen Concentration - - Weight 50.8 kg (112 lb) 06/07/2024 8:37 AM CDT Height 157.5 cm (5' 2 ) 06/07/2024 8:37 AM CDT Body Mass Index 20.49 06/07/2024 8:37 AM CDT documented in this encounter Patient Instructions * Patient Instructions* Flora Gupta MA - 06/07/2024 8:30 AM CDT Images from the original note were not included. Thank you for choosing us for your health care needs! Ana Pavon DNP & HILLARY Burris documented in this encounter Ordered Prescriptions Prescription Sig Dispense Quantity Refills Last Filled Start Date End Date triamcinolone (KENALOG) 0.1 % cream Apply to affected area 1-2 times daily as needed. 15 g 1 06/07/2024 5 documented in this encounter Progress Notes * Ana Pavon, DERICK - 06/07/2024 8:30 AM CDT SUBJECTIVE: 53 y.o. female for annual routine checkup. 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 15 g 1 zolpidem (AMBIEN) 10 mg tablet TAKE 1 TABLET BY MOUTH EVERY DAY AT BEDTIME NEEDED FOR SLEEP 30 tablet 1 No current facility-administered medications for this visit. Allergies: Patient has no known allergies. ROS: Feeling well. No dyspnea or chest pain on exertion. No abdominal pain, change in bowel habits,black or bloody stools. No urinary tract symptoms. 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 No neurological complaints. Past Medical History: Diagnosis Date Anxiety 1999 Breast pain, left 04/09/2022 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CMS/HCC) ([facility]) 12/31/2022 Lumbar disc herniation with radiculopathy 01/03/2023 Added automatically from request for surgery [id number] Neutropenia ([facility]) 05/06/2017 Past Surgical History: Procedure Laterality Date BREAST SURGERY 04/2003 [place] UPPER GI AIR CONTRAST W KUB Left 11/12/2022 HAND SURGERY Right saggital band surgery LUMBAR DISCECTOMY SPINE SURGERY 2022 Family History Problem Relation Age of Onset Non-Hodgkin's Lymphoma Mother 36 Hypertension Mother Anemia Mother Cancer Mother Hypertension Father No Known Problems Sister No Known Problems Brother Stroke Sister Anesthesia problems Neg Hx No colon, breast, tag clerk cancer cmt 09/12/23 Social History Tobacco Use Smoking status: Never Passive exposure: Never Smokeless tobacco: Never Substance and Sexual Activity Drug use: Yes Types: Alcohol Comment: 1-2 drink tolerence, no mj, pills or street drugs Sexual activity: Yes Partners: Male control/protection: None Alcohol Use: Not At Risk (01/11/2023) AUDIT-C Frequency of Alcohol Consumption: 4 or more times a week Average Number of Drinks: 1 or 2 Frequency of Binge Drinking: Never PHQ Screening Over the past 2 weeks, how often have you been bothered by any of the following problems? Little Interest or Pleasure in Doing Things: Not at all Feeling Down, Depressed, or Hopeless: Not at all PHQ-2 Total Score (If total score is 3 or more points, staff should administer the PHQ-9): 0 OBJECTIVE: The patient appears well, alert, oriented x 3, in no distress. BP 98/62 (BP Location: Right arm, Patient Position: Sitting) Pulse 80 Temp 36.8 ??C (98.2 ??F) (Temporal) Ht 157.5 cm (5' 2 ) Wt 50.8 kg (112 lb) BMI 20.49 kg/m?? ENT normal. Neck supple. No adenopathy or thyromegaly. LEEANN. Lungs are clear, good air entry, no wheezes, rhonchi or rales. S1 and S2 normal, no murmurs, regular rate and rhythm. Abdomen soft without tenderness, guarding, mass or organomegaly. Extremities show no edema, normal peripheral pulses. Neurological is normal, no focal findings. BREAST EXAM: deferred PELVIC EXAM: deferred ASSESSMENT: Diagnoses and all orders for this visit: Annual physical exam (Primary) Colon cancer screening - Stool DNA - Cologuard; Future Encounter for administration of vaccine - Varicella-zoster HZV IM Anxiety Assessment & Plan: Uses Alprazolam on as needed basis (very sparingly). Primary insomnia Assessment & Plan: Currently controlled on Ambien 10 mg nightly prn Other orders - triamcinolone (KENALOG) 0.1 % cream; Apply to affected area 1-2 times daily as needed. PLAN: mammogram counseled on breast self exam additional lab tests per orders return annually or prn documented in this encounter Miscellaneous Notes * Assessment & Plan Note - Ana Pavon NP - 06/07/2024 9:14 AM CDTAssociated Problem(s): Primary insomnia Currently controlled on Ambien 10 mg nightly prn * Assessment & Plan Note - Ana Pavon NP - 06/07/2024 9:14 AM CDTAssociated Problem(s): Anxiety Uses Alprazolam on as needed basis (very sparingly). documented in this encounter Plan of Treatment Scheduled Orders Name Type Priority Associated Diagnoses Orde r Schedule Stool DNA - Cologuard Lab Routine Colon cancer screening Expected: 06/07/2024, Expires: 06/07/2025 documented as of this encounter Visit Diagnoses Diagnosis Annual physical exam- Primary Routine general medical examination at a health care facility Colon cancer screening Special screening for malignant neoplasms, colon Encounter for administration of vaccine Anxiety Anxiety state, unspecified Primary insomnia Persistent disorder of initiating or maintaining sleep documented in this encounter Orders Immunization/Injection Count Last Ordered Date First Ordered Date ZOSTER (SHINGLES) HZV IM 1 06/07/2024 documented in this encounter Care Teams Internal Audit Senior Manager Relationship Specialty Start Date End Date Ana Pavon NP [address] [facility] [address] [place] [address] PCP - General Family Medicine 06/09/23 Kristen Mancera MD Medical Oncologist/Diagnostic Medical Sonographer Medical Oncology 11/21/20 Lewis Sunshine MD [address] [facility] [address] [place] [address] Surgeon Orthopedic Surgery 01/05/23 documented as of this encounter
--- OUTSIDE RECORDS SUMMARY | 2024-10-06 07:03 | XMS_ITS | Encounter Summary ---
Author Organization [facility] Healthcare Address [address] [place] [address] Care Team Providers Care Benefits Sales Consultant Name Role Phone Kristen Mancera MD Unavailable Lewis Sunshine MD Unavailable [phone] Ana Pavon NP Primary Care Provider [phone] Encounter Details Date Type Department Care Team (Latest Contact Info) Description 03/02/2024 1:32 PM CDT - 03/02/2024 11:59 PM CDT Hospital Encounter 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 progesterone (PROMETRIUM) 100 mg capsule Take 1 capsule (100 mg total) by mouth daily UNABLE TO FIND Testosterone 22.5 mL (cream) applied nightly ALPRAZolam (XANAX) 0.25 mg tabletIndications :anxiety Take 1 tablet (0.25 mg total) by mouth 2 (two) times a day as needed for anxiety 60 tablet 11/03/2023 4 zolpidem (AMBIEN) 10 mg tabletIndications :Neutropenia, [...] on filedocumented in this encounter Care Teams Benefits Sales Consultant Relationship Specialty Start Date End Date Ana Pavon NP [address] [facility] [address] [place] [address] PCP - General Family Medicine 06/09/23 Kristen Mancera MD Medical Oncologist/Environmental Maintenance Worker Medical Oncology 11/21/20 Lewis Sunshine MD [address] [address] Surgeon Orthopedic Surgery 01/05/23 documented as of this encounter
--- OUTSIDE RECORDS SUMMARY | 2024-10-06 07:04 | XMS_ITS | Encounter Summary ---
Author Organization [facility] Address [address] [place] [address] Phone Care Team Providers Care Middle School Assistant Principal Name Role Phone Kristen Mancera MD Unavailable Kacey Gonzalez MD Primary Care Provider [phone] Reason for Visit * Reason Onset Date Comments Spinal Surgery 12/30/2022 Encounter Details Date Type Department Care Team (Late st Contact Info) Description 12/30/2022 Telephone [facility] Orthopaedic Surgery [address] [facility] Medical Office Building [address] [place] [address] Lewis Sunshine MD [address] [facility] [address] [place] [address] Spinal Surgery Social History Tobacco Use Types Packs/Day Years Used Date Smoking Tobacco: Never Smokeless Tobacco: Never PHQ-2 Answer Date Recorded PHQ-2 Total Score (If total score is 3 or more points, staff should administer the PHQ-9) 0 04/20/2022 Comments No Sex and Gender Information Value Date Recorded Sex Assigned at Not on file 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 Please reference previous MyChart message that patient has completed 4 weeks of PT without improvement. documented in this encounter Plan of Treatment Not on file documented as of this encounter Visit Diagnoses Not on filedocumented in this encounter Care Teams Middle School Assistant Principal Relationship Specialty Start Date End Date Kacey Gonzalez MD PCP - General Family Medicine 04/07/21 06/08/23 Kristen Mancera MD Medical Oncologist/Platform Stapler Medical Oncology 11/21/20 documented as of this encounter
--- OUTSIDE RECORDS SUMMARY | 2024-10-06 07:04 | XMS_ITS | Encounter Summary ---
Author Organization [facility] Address [address] [place] [address] Phone Care Team Providers Care Gravity Prospector Name Role Phone Kristen Mancera MD Unavailable Kacey Gonzalez MD Primary Care Provider [phone] Reason for Referral * Consultation (Routine) - Closed Specialty Diagnoses / Procedures Referred By Wilfred t Referred To Contact Orthopedic Surgery Diagnoses DDD (degenerative disc disease), lumbosacral Protrusion of intervertebral disc of lumbosacral region [place]icular [place] [address] [place] [address] Phone: tel: fax: [facility] (All Locations) Referral ID Status Reason Start Date Expiration Date V isits Requested Visits Authorized [id number] Closed Specialty Services Required 11/22/2022 12/22/2023 1 1 Question Answer Please select the performing region: [facility] (All Locations) [[id number]] # of visits: 1 Comments Discuss potential microdiskectomy. Radicular pain and symptoms, No improvement with TESI (Left S1) Mild degenerative changes of the lumbar spine. A superimposed left subarticular disc protrusion at L5-S1 asymmetrically encroaches on the descending left S1 nerve root. Correlation for symptoms of a left S1 radiculopathy is recommended. 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 Encounter Details Date Type Department Care Team (Late st Contact Info) Description 11/22/2022 Orders Only [facility] Orthopaedic Surgery [address] [facility] Medical Office Building [address] [place] [address] [place] [address] [place] [address] DDD (degenerative disc disease), lumbosacral (Primary Dx); Protrusion of intervertebral disc of lumbosacral region; Radicular pain of left lower extremity Social History Tobacco Use Types Packs/Day Years Used Date Smoking Tobacco: Never Smokeless Tobacco: Never PHQ-2 Answer Date Recorded PHQ-2 Total Score (If total score is 3 or more points, staff should administer the PHQ-9) 0 04/20/2022 Comments No Sex and Gender Information Value Date Recorded Sex Assigned at Not on file 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 Gender Identity Not on file Sexual Orientation Not on file documented as of this encounter Plan of Treatment Scheduled Referrals Name Type Priority Associated Diagnoses Orde r Schedule Ambulatory referral to Orthopedic Spine Outpatient Referral Routine DDD (degenerative disc disease), lumbosacral Protrusion of intervertebral disc of lumbosacral region Radicular pain of left lower extremity Expected: 12/06/2022 (Approximate), Expires: 11/22/2023 documented as of this encounter Visit Diagnoses Diagnosis DDD (degenerative disc disease), lumbosacral- Primary Degeneration of lumbar or lumbosacral intervertebral disc Protrusion of intervertebral disc of lumbosacral region Radicular pain of left lower extremity documented in this encounter Care Teams Gravity Prospector Relationship Specialty Start Date End Date Kacey Gonzalez MD PCP - General Family Medicine 04/07/21 06/08/23 Kristen Mancera MD Medical Oncologist/Electrolysis Needle Operator Medical Oncology 11/21/20 documented as of this encounter
--- OUTSIDE RECORDS SUMMARY | 2024-10-06 07:04 | XMS_ITS | Encounter Summary ---
Author Organization [facility] Healthcare Address [address] [place] [address] Care Team Providers Care Business Mail Entry Clerk Name Role Phone Kristen Mancera MD Unavailable Kacey Gonzalez MD Primary Care Provider [phone] [phone] Encounter Details Date Type Department Care Team (Latest Contact Info) Description 07/16/2022 9:08 AM CDT - 07/16/2022 11:59 PM CDT Hospital Encounter [facility] Advanced [facility] ([facility]) [address] [place] [phone] Homozygous MTHFR mutation C677T; Neutropenia, unspecified type (HCC); Annual physical exam Discharge Disposition: Discharge to home or self [...] on file 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 30 tablet 1 05/14/2022 08/02/20 22 triamcinolone (KENALOG) 0.1 % creamIndications:T ransient acantholytic dermatosis (bisi) Apply topically 2 (two) times a day 80 g 1 04/20/2022 01/06/20 23 zolpidem (AMBIEN) 10 mg tabletIndications: Neutropenia, unspecified type (HCC) Take 1 tablet (10 mg total) by mouth nightly 30 tablet 3 05/18/2022 08/13/20 22 documented as of this encounter Discharge Disposition Disposition Code Departure Means Destination Discharge to home or self care documented in this encounter Plan of Treatment Not on file documented as of this encounter Procedures Procedure Name Priority Date/Time Associated Diagnosis Comments HEMOGLOBIN A1C Routine 07/16/2022 10:56 AM CDT Annual physical exam EGFR Routine 07/16/2022 10:40 AM CDT Homozygous MTHFR mutation C677T Neutropenia, unspecified type (HCC) DIFFERENTIAL AUTO Routine 07/16/2022 10: 40 AM CDT Homozygous MTHFR mutation C677T Neutropenia, unspecified type (HCC) THYROID FUNCTION CASCADE Routine 07/16/2022 10:40 AM CDT Annual physical exam CBC WITH AUTO DIFFERENTIAL Routine 07/16/2022 10:40 AM CDT Homozygous MTHFR mutation C677T Neutropenia, unspecified type (HCC) LACTATE DEHYDROGENASE Routine 07/16/2022 10:40 AM CDT Homozygous MTHFR mutation C677T Neutropenia, unspecified type (HCC) LIPID PANEL Routine 07/16/2022 10:40 AM CDT Annual physical exam COMPREHENSIVE METABOLIC PANEL Routine 07/16/2022 10:40 AM CDT Homozygous MTHFR mutation C677T Neutropenia, unspecified type (HCC) documented in this encounter Results * Hemoglobin A1c (07/16/2022 10:56 AM CDT) Hgb A1C 4.4 4.0 - 5.6 % [facility] Estimated Average Glucose 80 mg/dL [facility] Comment: The ADA recommends reporting an estimated Average Glucose (eAG) with all Hemoglobin A1c results using the equation derived from a study of 507 normal and diabetic adults. ??Minority populations were underrepresented and children were not included. ?? (Diabetes Care 2020; 43(S1): S66-S76). ??The eAG is not equivalent to a fasting glucose. Blood 07/16/2022 10:5 6 AM CDT 07/16/2022 10:57 AM CDT us Kacey Gonzalez MD LAB BLOOD ORDERABLES Anat blackmon Result [facility] Department [place] [address] * eGFR (07/16/2022 10:40 AM CDT) eGFR >90 90 - 130 mL/min/1. 73 m2 [facility] Comment: Interpretive Data Reference Interval [...] of Race in Diagnosing Kidney Disease, JASN 2020). The CKD-EPI equation should not be used for patients with unstable renal function and has not been validated in children and those over 70. Current interpretive data was last reviewed 2021. Testing performed by: [facility], [address] [place] [phone] Blood 07/16/2022 10:4 0 AM CDT 07/16/2022 10:42 AM CDT us Kristen Mancera MD LAB BLOOD ORDERABLES Final Resul t [facility] Department [place] [address] * (ABNORMAL) Differential, auto (07/16/2022 10:40 AM CDT) Neutrophil abs 0.6(L) 1.8 - 6.6 K/cumm [facility] Comment:Testing performed by : [facility], [address] [place] [phone] Lymphocyte abs 1.0(L) 1.2 - 3.3 K/cumm [facility] Comment:Testing performed by : [facility], [address] [place] [phone] Monocyte abs 0.7 0.2 - 1.2 K/cumm [facility] Comment:Testing performed by : [facility], [address] [place] [phone] Eosinophil abs 0.1 0.0 - 0.5 K/cumm [facility] Comment:Testing performed by : [facility], [address] [place] [phone] Basophil abs 0.1 0.0 - 0.2 K/cumm [facility] Comment:Testing performed by : [address] [phone] Neutrophil pct 24.3 % [facility] Comment: Interpretive Data Percent cell count reference ranges are not reported, since discordance with absolute values may lead to misinterpretation of CBC data. Current Interpretive Data was last revised on 2018. Testing performed by: [facility], [address] [place] [phone] Lymphocyte pct 40.5 % [facility] Comment: Interpretive Data Percent cell count reference ranges are not reported, since discordance with absolute values may lead to misinterpretation of CBC data. Current Interpretive Data was last revised on 2018. Testing performed by: [facility], [address] [place] [phone] Monocyte pct 28.1 % [facility] Comment:Testing performed by : [facility], [address] [place] [phone] Eosinophil pct 4.6 % [facility] Comment:Testing performed by : [facility], [address] [place] [phone] Basophil pct 2.5 % [facility] Comment:Testing performed by : [facility], [address] [place] [phone] Blood 07/16/2022 10:4 0 AM CDT 07/16/2022 10:42 AM CDT Kristen Mancera MD LAB BLOOD ORDERABLES Final Resul t Performing Organization Address City/[facility]/ZIP Co de Phone Number [facility] [place] [address] * TSH reflex to free T4 (07/16/2022 10:40 AM CDT) TSH 0.71 0.30 - 4.20 mcIUnit/mL [facility] Blood 07/16/2022 10:4 0 AM CDT 07/16/2022 11:33 AM CDT Kacey Gonzalez MD LAB BLOOD ORDERABLES Anat l Result Performing Organization Address City/[facility]/ZIP Co de Phone Number [facility] [place] [address] * (ABNORMAL) Lipid panel (07/16/2022 10:40 AM CDT) Cholesterol 222(H) 30 - 199 mg/dL [facility] Comment: Interpretive Data Ages < or [...] Data was last revised on 2018. Triglycerides 42 <=149 mg/dL [facility] Comment: Interpretive Data Ages < or = [...] Data was last revised on 2018. HDL 82 >=40 mg/dL [facility] Comment: Interpretive Data Ages < or = [...] was last revised on 2018. LDL, calculated 132(H) <=129 mg/dL [facility] Comment: Interpretive Data Ages < or [...] was last revised on 2018. Non-HDL Cholesterol 140 mg/dL [facility] Comment: Interpretive Data Ages < or [...] last revised on 2018. Chol/HDL ratio 3 [facility] Blood 07/16/2022 10:4 0 AM CDT 07/16/2022 11:33 AM CDT Kacey Gonzalez MD LAB BLOOD ORDERABLES Anat l Result Performing Organization Address [facility] Co de Phone Number [facility] Department [place] [address] * Lactate dehydrogenase (LD) (07/16/2022 10:40 AM CDT) Lactate dehydrogenase (LDH) 120 100 - 250 Units/L [facility] Comment:Testing performed by : [facility], [address] [place] [phone] Blood 07/16/2022 10:4 0 AM CDT 07/16/2022 10:42 AM CDT Kristen Mancera MD LAB BLOOD ORDERABLES Final Resul t Performing Organization Address [facility] de Phone Number [facility] [place] [address] * Comprehensive metabolic panel (07/16/2022 10:40 AM CDT) Pathologist [facility] Sodium 139 135 - 145 mmol/L [facility] Comment:Testing performed by : [facility], [address] [place] [phone] Potassium, pl 4.5 3.3 - 4.9 mmol/L [facility] Comment:Testing performed by : [facility], [address] [place] [phone] Chloride 103 97 - 110 mmol/L [facility] Comment:Testing performed by : [facility], [address] [place] [phone] CO2 28 22 - 32 mmol/L [facility] Comment:Testing performed by : [facility], [address] [place] [phone] Anion gap 8 2 - 15 mmol/L [facility] Comment:Testing performed by : [facility], [address] [place] [phone] BUN 11 8 - 25 mg/dL [facility] Comment:Testing performed by : [facility], [address] [place] [phone] Creatinine 0.61 0.60 - 1.10 mg/dL [facility] Comment:Testing performed by : [facility], [address] [place] [phone] Glucose 84 70 - 199 mg/dL [facility] Comment: Interpretive Data Fasting glucose >/= 126 [...] classification and Diagnosis of Diabetes Diabetes Care 2017;40 (Suppl. 1):S11. Current interpretive data was last revised 2017. Testing performed by: [facility], [address] [place] [phone] Calcium 9.2 8.5 - 10.3 mg/dL [facility] Comment:Testing performed by : [address] [phone] Bilirubin, total 0.5 0.1 - 1.2 mg/dL [facility] Comment:Testing performed by : [address] [phone] Protein, pl 7.5 6.5 - 8.5 g/dL [facility] Comment:Testing performed by : [address] [phone] Albumin 4.6 3.5 - 5.0 g/dL [facility] Comment:Testing performed by : [address] [phone] Alk phos 43 40 - 130 Units/L [facility] Comment:Testing performed by : [address] [phone] ALT 13 7 - 45 Units/L [facility] Comment:Testing performed by : [facility], [address] [place] [phone] AST 17 10 - 45 Units/L [facility] Comment:Testing performed by : [facility], [address] [place] [phone] Blood 07/16/2022 10:4 0 AM CDT 07/16/2022 10:42 AM CDT us Kristen Mancera MD LAB BLOOD ORDERABLES Final Resul t [facility] [place] [address] * (ABNORMAL) CBC with auto differential (07/16/2022 10:40 AM CDT) WBC 2.5(L) 3.8 - 9.8 K/cumm [facility] Comment:Testing performed by : [facility], [address] [place] [phone] Hgb 13.1 12.1 - 15.1 g/dL [facility] Comment:Testing performed by : [address] [phone] Hct 39.0 36.1 - 44.3 % [facility] Comment:Testing performed by : [place] [id number] Plt 224 140 - 440 K/cumm [facility] Comment:Testing performed by : [facility], [address] [place] [phone] MPV 8.6 6.8 - 10.4 fL [facility] Comment:Testing performed by : [place] [id number] RBC 4.11 3.90 - 5.00 M/cumm [facility] Comment:Testing performed by : [place] [id number] MCV 95.0 80.0 - 97.6 fL [facility] Comment:Testing performed by : [place] [id number] MCH 31.9 26.7 - 33.7 pg [facility] Comment:Testing performed by : [facility], [address] [place] [phone] MCHC 33.6 32.7 - 35.5 g/dL [facility] Comment:Testing performed by : [facility], [address] [place] [phone] RDW CV 12.8 11.8 - 14.6 % [facility] Comment:Testing performed by : [facility], [address] [place] [phone] NRBC abs 0.00 0.00 - 0.01 K/cumm [facility] Comment:Testing performed by : [facility], [address] [place] [phone] Blood 07/16/2022 10:4 0 AM CDT 07/16/2022 10:42 AM CDT us Kristen Mancera MD LAB BLOOD ORDERABLES Final Resul t [facility] Department of Laboratories [place], [place] [id number] documented in this encounter Visit Diagnoses Diagnosis Homozygous MTHFR mutation C677T Neutropenia, unspecified type (HCC) Annual physical exam Routine general medical examination at a health care facility documented in this encounter Care Teams Business Mail Entry Clerk Relationship Specialty Start Date End Date Kacey Gonzalez MD PCP - General Family Medicine 04/07/21 06/08/23 Kristen Mancera MD Medical Oncologist/Supervisor Sign Shop Medical Oncology 11/21/20 documented as of this encounter
--- OUTSIDE RECORDS SUMMARY | 2024-10-06 07:04 | XMS_ITS | Encounter Summary ---
Author Organization [facility] Address [address] [place] [address] Phone Care Team Providers Care Category Specialist Name Role Phone Kristen Mancera MD Unavailable Kacey Gonzalez MD Primary Care Provider [phone] [phone] Lewis Sunshine MD Unavailable +1- [phone] Encounter Details Date Type Department Care Team (Late st Contact Info) Description 01/05/2023 Telephone [facility] Bone Marrow Transplant [address] [facility] 7th Floor, [place] [address] Vita Hunter, RN Social History Tobacco Use Types Packs/Day Years Used Date Smoking Tobacco: Never Smokeless Tobacco: Never AUDIT-C Answer Date Recorded Q1: How often do you have a drink containing alcohol? 4 or more times a week 01/05/2023 Q2: How many drinks containi ng alcohol do you have on a typical day when you are drinking? 1 or 2 Q3: How often do you have si x or more drinks on one occasion? 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 WBC and ANC recovered so ok to proceed with surgery next week. documented in this encounter Plan of Treatment Not on file documented as of this encounter Visit Diagnoses Not on filedocumented in this encounter Care Teams Category Specialist Relationship Specialty Start Date End Date Kacey Gonzalez MD PCP - General Family Medicine 04/07/21 06/08/23 Kristen Mancera MD Medical Oncologist/Personal Fitness Trainer Medical Oncology 11/21/20 Lewis Sunshine MD [address] [address] Surgeon Orthopedic Surgery 01/05/23 documented as of this encounter
--- OUTSIDE RECORDS SUMMARY | 2024-10-06 07:04 | XMS_ITS | Encounter Summary ---
Author Organization [facility] Address [address] [place] [address] Phone Care Team Providers Care Pneumatic Deicer Inspector Name Role Phone Kristen Mancera MD Unavailable Kacey Gonzalez MD Primary Care Provider [phone] Lewis Sunshine MD Unavailable [phone]- [phone] Reason for Visit * Reason Comments Post-op Encounter Details Date Type Department Care Team (Late st Contact Info) Description 02/21/2023 8:30 AM CDT Office Visit [facility] Orthopaedic Surgery [address] [facility] 6th [place] [phone] Lewis Sunshine MD [address] [facility] [address] [place] [address] Lumbar radiculopathy (Primary Dx) Social History Tobacco Use Types [...] on file 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 She is 6 weeks status post left L5-S1 diskectomy. She is basically no pain she does have some residual dysesthesias every once in a while she gets some cramping which is intermittent and short-lived. Overall she is very happy. Physical Examination On exam is well-appearing. Surgical incisions healed. She can rise on toes and heels and squat stand. No sensory motor deficits lower extremities. Review of Plain Radiographs/Studies Impression/Plan Doing well after L5-S1 left-sided diskectomy. She can resume normal activity slowly. I will see herin 6 weeks. Lewis Sunshine M.D., M.S. Under Cutter Orthopaedic and Neurological Surgery [facility] [employer] [facility] [place], [place] Project Product Manager done by [employer]; therefore, variances and inaccuracies may occur. I reviewed the patient problem list pertinent to the visit today, but the entire patient problem list was not reviewed today. documented in this encounter Plan of Treatment Not on file documented as of this encounter Visit Diagnoses Diagnosis Lumbar radiculopathy- Primary Thoracic or lumbosacral neuritis or radiculitis, unspecified documented in this encounter Discontinued Medications Medication Sig Discontinue Reason Start Date End Da te acetaminophen (TYLENOL) 500 mg tabletIndications:Luiza n Take 2 tablets (1,000 mg total) by mouth every 8 (eight) hours Therapy completed 01/11/2023 02/21/2023 methocarbamoL (ROBAXIN) 500 mg tabletIndications:Mus santana Spasm Take 1 tablet (500 mg total) by mouth 4 (four) times a day Therapy completed 01/11/2023 02/21/2023 oxyCODONE (ROXICODONE) 5 mg immediate release tabletIndications:Luiza n Take 1 tablet (5 mg total) by mouth every 4 (four) hours as needed for pain (as needed for breakthrough pain) Therapy completed 01/11/2023 02/21/2023 senna-docusate (Senna with Docusate Sodium) 8.6-50 mgIndications:constip ation Take 1 tablet by mouth 2 (two) times a day Therapy completed 01/11/2023 02/21/2023 documented as of this encounter Care Teams Pneumatic Deicer Inspector Relationship Specialty Start Date End Date Kacey Gonzalez MD PCP - General Family Medicine 04/07/21 06/08/23 Kristen Mancera MD Medical Oncologist/Bookkeeping Assistant Medical Oncology 11/21/20 Lewis Sunshine MD [address] [address] Surgeon Orthopedic Surgery 01/05/23 documented as of this encounter
--- OUTSIDE RECORDS SUMMARY | 2024-10-06 07:04 | XMS_ITS | Encounter Summary ---
Author Organization [facility] Address [address] [place] [address] Phone Care Team Providers Care Automotive Professional Name Role Phone Kristen Mancera MD Unavailable Kacey Gonzalez MD Primary Care Provider [phone] Lewis Sunshine MD Unavailable [phone]- [phone] Reason for Visit * Reason Comments Pre-op Visit Encounter Details Date Type Department Care Team (Late st Contact Info) Description 01/10/2023 9:15 AM CDT Office Visit [facility] Orthopaedic Surgery [address] [facility] 6th [place] [address] [place] [phone] Lewis Sunshine MD [address] 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 She has radiculopathy. She is tried extensive conservative treatments. At this point she is a moderate amount of pain but is there all the time and fixed every activity that she does. Is in the left leg. She is recently tried some physical therapy it did not improve things at all Physical Examination She is well-appearing. She is good strength lower extremities and quadriceps, dorsiflexors plantar flexors bilaterally. No sensory deficits. Review of Plain Radiographs/Studies I reviewed her MRI again. She has a left-sided paracentral L5-S1 disc herniation compressing the [id number] root. Impression/Plan Lumbar radiculopathy from a left L5-S1 disc herniation. She is tried and failed conservative treatments. She is indicated for left L5-S1 diskectomy. I reviewed risks benefits and alternatives with the patient. She wished to proceed. Lewis Sunshine M.D., M.S. Athletic Equipment Custodian Orthopaedic and Neurological Surgery [facility] [employer] [facility] [place], [place] Ferryboat Deckhand done by [employer]; therefore, variances and inaccuracies may occur. I reviewed the patient problem list pertinent to the visit today, but the entire patient problem list was not reviewed today. * Vanessa Greer RN - 01/10/2023 9:15 AM CDT I was asked to see Karen Medeiros regarding surgery. She is interested in scheduling LEFT L5-S1 discectomy. I have scheduled this surgical procedure for 4/4/23 . The preop diagnosis is Left L5-S1 disc herniation. We discussed preoperative preparations including testing and consultations needed prior to surgery,the hospital course and stay of 0-1 days, the pain management protocol, possible rehabilitation after surgery, and return to work estimates. I have scheduled the preadmission testing appointment in the [facility] center for 01/05/23. The surgical procedure consent, blood transfusion consent, and narcotic agreement forms were reviewed with the patient and obtained in the office today. She was given surgery instructions, instructions to stop all NSAID's, blood thinners and aspirin products 1 week before surgery, and told not to take any NSAID's for at least 2 weeks postoperatively until the bone is fused. Surgery arrival time is 5:30am. She was told to call the office if she has any additional questions prior to her surgery date. She verbalized understanding of these instructions. Microsurgery booklet was given. PCP: Kacey Gonzalez MD Julia Santiago RN documented in this encounter Plan of Treatment Not on file documented as of this encounter Visit Diagnoses Diagnosis Lumbar disc herniation- Primary Displacement of lumbar intervertebral disc without myelopathy documented in this encounter Care Teams Automotive Professional Relationship Specialty Start Date End Date Kacey Gonzalez MD PCP - General Family Medicine 04/07/21 06/08/23 Kristen Mancera MD Medical Oncologist/Watch Repairer Apprentice Medical Oncology 11/21/20 Lewis Sunshine MD [address] [address] Surgeon Orthopedic Surgery 01/05/23 documented as of this encounter
--- OUTSIDE RECORDS SUMMARY | 2024-10-06 07:04 | XMS_ITS | Encounter Summary ---
Author Organization [facility] Address [address] [place] [address] Phone Care Team Providers Care Garment Presser Name Role Phone Kristen Mancera MD Unavailable Kacey Gonzalez MD Primary Care Provider [phone] [phone] Reason for Referral * Diagnostic Imaging (Routine) - Closed Specialty Diagnoses / Procedures Referred By Contac t Referred To Contact Diagnoses Acute left-sided low back pain with left-sided sciatica Procedures XR Scoliosis 4 or 5 Views Lewis Sunshine MD [address] [facility] 6A/6B/12A [place] [address] Phone: tel: fax: [facility] Radiology [address] [address] Phone: tel: Referral ID Status Reason Start Date Expiration Date Visits Re quested Visits Authorized [id number] Closed 11/30/2022 12/30/2023 1 1 RISK CASE MANAGER Reason for Visit * Reason Comments Pain * Consultation (Routine) - Closed Specialty Diagnoses / Procedures Referred By Contac t Referred To Contact Orthopedic Surgery Diagnoses DDD (degenerative disc disease), lumbosacral Protrusion of intervertebral disc of lumbosacral region [place]icular [place] [address] [place] [address] Phone: tel: fax: [facility] (All Locations) Referral ID Status Reason Start Date Expiration Date V isits Requested Visits Authorized [id number] Closed Specialty Services Required 11/22/2022 12/22/2023 1 1 Encounter Details Date Type Department Care Team (Late st Contact Info) Description 12/01/2022 10:15 AM HIGH RISK CASE MANAGER Office Visit [facility] Orthopaedic Surgery [address] [facility] Medical Office Building [address] [place] [address] Lewis Sunshine MD [address] [facility] [place] [address] Acute left-sided low back pain with left-sided sciatica (Primary Dx); DDD (degenerative disc disease), lumbosacral; Protrusion of intervertebral disc of lumbosacral region; [...] on file Legal Sex Female 10:19 PM HIGH RISK CASE MANAGER Gender Identity Not on file Sexual Orientation Not on file documented as of this encounter Progress Notes * Lewis Sunshine MD - 12/01/2022 10:15 AM CST New Patient Visit Chief Complaint Left leg pain. History of Present Illness Karen Medeiros is a 52 y.o. female who presents to our office today for evaluation of left leg pain. This has been going on for greater than a year. She had a recurrence of an acute and severe pain about a month ago less than a month ago. Pain shoots down buttock hamstring and calf. Right leg isokay. She does have some axial low back pain but this is less of a concern. She is generally very active and exercises regularly but this has been very impacts her. 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 Past Medical History She has a past medical history of Anxiety (1999). Past Surgical History She has a past surgical history that includes Breast surgery (April 2003) and FL Upper GI Air Contrast W KUB (Left, 11/12/2022). Medications She has a current medication list which includes the following prescription(s): alprazolam, zolpidem, gabapentin, levonorgestrel, and triamcinolone. Drug Allergies She has No Known Allergies. Social History She reports that she has never smoked. She has never used smokeless tobacco. She reports that she does not use drugs. No alcohol history on file. Family History Her family history includes Cancer in her mother; No Known Problems in her brother, father, and sister; Non-Hodgkin's Lymphoma in her mother. Review of Systems A complete twelve-system review of systems was obtained from the patient and is positive for: No heart attack strokes or cancers. It is otherwise negative. Physical Examination On exam is well-appearing. Walks with antalgic gait on the left. She can rise on toes and heels andsquat and stand. He is 5/5 strength in hip flexion, quadriceps and hamstrings dorsiflexors plantar flexors, EHL bilaterally. Sensation is intact to lower extremities bilaterally. She has a positive left straight leg raise sign. Review of Plain Radiographs/Studies She has x-rays which show degenerative disc disease L5-S1. Otherwise her spine looks fairly good overall. He is good sagittal and coronal alignment. MRI demonstrates a left L5-S1 disc protrusion causing lateral recess stenosis and compression of the S1 nerve root. Impression/Diagnosis The patient is a 52 y.o. female with lumbar radiculopathy from a left L5-S1 disc herniation. The patient has had an injection she is not tried physical therapy. She does have an increased risk of infection due to her leukopenia. We will try a round of physical therapy for 6 weeks. If she does not get adequate relief then she would be a candidate for left L5-S1 diskectomy. We will coordinate with Hematology-Oncology to optimize her infection risk prior to any potential surgery. Lewis Sunshine M.D., M.S. Food And Beverage Coordinator Orthopaedic and Neurological Surgery [facility] [place], [place] Physician Pediatrician done by [employer]; therefore, variances and inaccuracies may occur. I reviewed the patient problem list pertinent to the visit today, but the entire patient problem list was not reviewed today. documented in this encounter Plan of Treatment Not on file documented as of this encounter Results * XR Scoliosis 4 or 5 Views (12/01/2022 10:27 AM HIGH RISK CASE MANAGER) Anatomical Region Laterality Modality Spine N/A Computed Radiogr aphy 12/01/2022 11:2 5 AM HIGH RISK CASE MANAGER Impressions 12/01/2022 12:36 PM HIGH RISK CASE MANAGER 1. Mild L5-S1 degenerative disc disease. Dictated by: Omar Snider M.D. The radiology attending physician has personally reviewed this study, and had reviewed and/or edited this written report and agrees with it. Electronically signed by: Zen Shea M.D. Narrative 12/01/2022 12:36 PM HIGH RISK CASE MANAGER EXAMINATION: XR SCOLIOSIS 4 OR 5 VW HISTORY: low back pain COMPARISON: 11/01/2021 radiograph FINDINGS: 6 images of the total spine using the system with dedicated lumbar spine radiographs are submitted for interpretation. There is minimal long segment thoracolumbar dextrocurvature. ??There is no significant truncal imbalance or pelvic obliquity. ??Note is made of mild straightening of the normal cervical lordosis. ??There is no compression deformity. ??There are mild multilevel changes of lumbar degenerative disc disease most pronounced at L5-S1. There is no abnormal motion on flexion or extension. Note is made of an intrauterine device. ?? Procedure Note Zen Shea MD - 12/01/2022 EXAMINATION: XR SCOLIOSIS 4 OR 5 VW HISTORY: low back pain COMPARISON: 11/01/2021 radiograph FINDINGS: 6 images of the total spine using the system with dedicated lumbar spine radiographs are submitted for interpretation. There is minimal long segment thoracolumbar dextrocurvature. There is no significant truncal imbalance or pelvic obliquity. Note is made of mild straightening of the normal cervical lordosis. There is no compression deformity. There are mild multilevel changes of lumbar degenerative disc disease most pronounced at L5-S1. There is no abnormal motion on flexion or extension. Note is made of an intrauterine device. IMPRESSION: 1. Mild L5-S1 degenerative disc disease. Dictated by: Omar Snider M.D. The radiology attending physician has personally reviewed this study, and had reviewed and/or edited this written report and agrees with it. Electronically signed by: Zen Shea M.D. us Lewis Sunshine MD IMG XR PROCEDURES Fi nal Result documented in this encounter Visit Diagnoses Diagnosis Acute left-sided low back pain with left-sided sciatica- Primary DDD (degenerative disc disease), lumbosacral Degeneration of lumbar or lumbosacral intervertebral disc Protrusion of intervertebral disc of lumbosacral region Radicular pain of left lower extremity Acute left-sided low back pain with left-sided sciatica documented in this encounter Discontinued Medications Medication Sig Discontinue Reason Start Date End Da te predniSONE (DELTASONE) 10 mg tablet Prednisone 10 mg tabs Dispense: 30 tabs: Take 4 tabs once daily for 3 days, then; Take 3 tabs once daily for 3 days, then; Take 2 tabs once daily for 3 days, then; Take 1 tab once daily for 3 days. Therapy completed 11/01/2022 12/01/2022 documented as of this encounter Orders Outpatient Referral Count Last Ordered Date Fir st Ordered Date AMB REFERRAL TO ORTHOPEDIC SPINE 1 12/01/19 23 documented in this encounter Care Teams Garment Presser Relationship Specialty Start Date End Date Kacey Gonzalez MD PCP - General Family Medicine 04/07/21 06/08/23 Kristen Mancera MD Medical Oncologist/Binder Technician Medical Oncology 11/21/20 documented as of this encounter
--- OUTSIDE RECORDS SUMMARY | 2024-10-06 07:04 | XMS_ITS | Encounter Summary ---
Author Organization [facility] Address [address] [place] [address] Phone Care Team Providers Care Lay Out Maker Name Role Phone Kristen Mancera MD Unavailable Kacey Gonzalez MD Primary Care Provider [phone] Lewis Sunshine MD Unavailable [phone]- [phone] Reason for Visit * Reason Onset Date Comments Prior Auth 01/07/2023 Encounter Details Date Type Department Care Team (Late st Contact Info) Description 01/07/2023 Telephone [facility] Orthopaedic Surgery [address] [facility] Medicine 6th [place] [address] [place] [address] Lewis Sunshine MD [address] [facility] [address] [place] [address] Prior Auth Social History Tobacco Use Types Packs/Day Years [...] on file Legal Sex Female 10:19 PM GENETIC COUNSELOR Gender Identity Not on file Sexual Orientation Not on file documented as of this encounter Miscellaneous Notes * Telephone Encounter - Vanessa Greer RN - 01/07/2023 4:25 PM CDT Updated patient that her surgery is now approved. * Telephone Encounter - Vanessa Greer RN - 01/07/2023 11:22 AM CDT Spoke with patient to update her that insurance authorization is still pending for her upcoming surgery on 01/11. We will review when she is in the office on Tuesday. documented in this encounter Plan of Treatment Not on file documented as of this encounter Visit Diagnoses Not on filedocumented in this encounter Care Teams Lay Out Maker Relationship Specialty Start Date End Date Kacey Gonzalez MD PCP - General Family Medicine 04/07/21 06/08/23 Kristen Mancera MD Medical Oncologist/Corporate Traffic Manager Medical Oncology 11/21/20 Lewis Sunshine MD [address] [address] Surgeon Orthopedic Surgery 01/05/23 documented as of this encounter
--- OUTSIDE RECORDS SUMMARY | 2024-10-06 07:04 | XMS_ITS | Encounter Summary ---
Author Organization [facility] Healthcare Address [address] [place] [address] Care Team Providers Care Manager Child Name Role Phone Kristen Mancera MD Unavailable Kacey Gonzalez MD Primary Care Provider [phone] Lewis Sunshine MD Unavailable [phone]- [phone] Encounter Details Date Type Department Care Team (Latest Contact Info) Description 02/04/2023 12:27 PM CDT - 02/04/2023 11:59 PM CDT Hospital Encounter [facility] Advanced [facility] [address] [place] [address] Discharge Disposition: Discharge to home or self [...] on file Legal Sex Female 10:19 PM BARIATRIC NURSE Gender Identity Not on file Sexual Orientation Not on file documented as of this encounter Medications at Time of Discharge levonorgestrel (MIRENA) IUDIndications:Abn ormal Uterine Bleeding, Contraception 1 each by intrauterine route once 02/22/2014 multivitamin capsuleIndications :Vitamin Deficiency Prevention Take 1 capsule by mouth guidance counselor before breakfast acetaminophen (TYLENOL) 500 mg tabletIndications: Pain Take 2 tablets (1,000 mg total) by mouth every 8 (eight) hours 60 tablet 01/11/2023 02/22/20 23 ALPRAZolam (XANAX) 0.25 mg tabletIndications: Neutropenia, unspecified type (HCC) Take 1 tablet (0.25 mg total) by mouth 2 (two) times a day 30 tablet 08/03/2022 06/09/20 23 methocarbamoL (ROBAXIN) 500 mg tabletIndications: Muscle Spasm Take 1 tablet (500 mg total) by mouth 4 (four) times a day 42 tablet 01/11/2023 02/22/20 23 oxyCODONE (ROXICODONE) 5 mg immediate release tabletIndications: Pain Take 1 tablet (5 mg total) by mouth every 4 (four) hours as needed for pain (as needed for breakthrough pain) 40 tablet 01/11/2023 02/22/20 23 senna-docusate (Senna with Docusate Sodium) 8.6-50 mgIndications:cons tipation Take 1 tablet by mouth 2 (two) times a day 60 tablet 01/11/2023 02/22/20 23 zolpidem (AMBIEN) 10 mg tabletIndications: Neutropenia, unspecified type (HCC) TAKE 1 TABLET BY MOUTH EVERY DAY AT NIGHT 30 tablet 5 12/23/2022 06/09/20 23 documented as of this encounter Discharge Disposition Disposition Code Departure Means Destination Discharge to home or self care documented in this encounter Plan of Treatment Not on file documented as of this encounter Visit Diagnoses Not on filedocumented in this encounter Care Teams Manager Child Relationship Specialty Start Date End Date Kacey Gonzalez MD PCP - General Family Medicine 04/07/21 06/08/23 Kristen Mancera MD Medical Oncologist/Welder Boilermaker Medical Oncology 11/21/20 Lewis Sunshine MD [address] [address] Surgeon Orthopedic Surgery 01/05/23 documented as of this encounter
--- OUTSIDE RECORDS SUMMARY | 2024-10-06 07:04 | XMS_ITS | Encounter Summary ---
Author Organization [facility] Healthcare Address [address] [place] [address] Care Team Providers Care Supervisor Framing Mill Name Role Phone Kristen Mancera MD Unavailable Kacey Gonzalez MD Primary Care Provider [phone] Reason for Referral * Diagnostic Imaging (Routine) - Closed Specialty Diagnoses / Procedures Referred By Contac t Referred To Contact Diagnoses Acute left-sided low back pain with left-sided sciatica Procedures XR Scoliosis 4 or 5 Views Lewis Sunshine MD [address] [address] Phone: tel: fax: [facility] Radiology [address] [place] [address] Phone: tel: Referral ID Status Reason Start Date Expiration Date Visits Re quested Visits Authorized [id number] Closed 11/30/2022 12/30/2023 1 1 R FINISHER Reason for Visit * Diagnostic Imaging (Routine) - Closed Specialty Diagnoses / Procedures Referred By Contac t Referred To Contact Diagnoses Acute left-sided low back pain with left-sided sciatica Procedures XR Scoliosis 4 or 5 Views Lewis Sunshine MD [address] [address] Phone: tel: fax: [facility] [address] [facility] [address] [place] [address] Phone: tel: Referral ID Status Reason Start Date Expiration Date Visits Re quested Visits Authorized [id number] Closed 11/30/2022 12/30/2023 1 1 Encounter Details Date Type Department Care Team (Latest Contact Info) Description 12/01/2022 9:45 AM PAPER FINISHER - 12/01/2022 11:59 PM PAPER FINISHER Hospital Encounter [facility] [address] [facility] [address] [place] [address] Acute left-sided low back pain with left-sided sciatica Discharge Disposition: Discharge to home or self [...] on file Legal Sex Female 10:19 PM PAPER FINISHER Gender Identity Not on file Sexual Orientation Not on file documented as of this encounter Medications at Time of Discharge levonorgestrel (MIRENA) IUDIndications:Abn ormal Uterine Bleeding, Contraception 1 each by intrauterine route once 02/22/2014 ALPRAZolam (XANAX) 0.25 mg tabletIndications: Neutropenia, unspecified type (HCC) Take 1 tablet (0.25 mg total) by mouth 2 (two) times a day 30 tablet 08/03/2022 06/09/20 23 gabapentin (NEURONTIN) 300 mg capsule Take 1 capsule (300 mg total) by mouth nightly 30 capsule 11/01/2022 01/06/20 23 triamcinolone (KENALOG) 0.1 % creamIndications:T ransient acantholytic dermatosis (bisi) Apply topically 2 (two) times a day 80 g 1 04/20/2022 01/06/20 23 zolpidem (AMBIEN) 10 mg tabletIndications: Neutropenia, unspecified type (HCC) TAKE 1 TABLET BY MOUTH EVERY DAY AT NIGHT 30 tablet 11/24/2022 12/24/19 23 documented as of this encounter Discharge Disposition Disposition Code Departure Means Destination Discharge to home or self care documented in this encounter Plan of Treatment Not on file documented as of this encounter Procedures Procedure Name Priority Date/Time Associated Diagnosis Comments XR SCOLIOSIS 4 OR 5 VW Schedule Routine, Read Routine (OP Routine) 12/01/2022 10:27 AM PAPER FINISHER Acute left-sided low back pain with left-sided sciatica documented in this encounter Results * XR Scoliosis 4 or 5 Views (12/01/2022 10:27 AM PAPER FINISHER) Anatomical Region Laterality Modality Spine N/A Computed Radiogr aphy 12/01/2022 11:2 5 AM PAPER FINISHER Impressions 12/01/2022 12:36 PM PAPER FINISHER 1. Mild L5-S1 degenerative disc disease. Dictated by: Omar Snider M.D. The radiology attending physician has personally reviewed this study, and had reviewed and/or edited this written report and agrees with it. Electronically signed by: Zen Shea M.D. Narrative 12/01/2022 12:36 PM PAPER FINISHER EXAMINATION: XR SCOLIOSIS 4 OR 5 VW [...] it. Electronically signed by: Zen Shea M.D. Lewis Sunshine MD IMG XR PROCEDURES Fi nal Result documented in this encounter Visit Diagnoses Diagnosis Acute left-sided low back pain with left-sided sciatica documented in this encounter Care Teams Supervisor Framing Mill Relationship Specialty Start Date End Date Kacey Gonzalez MD PCP - General Family Medicine 04/07/21 06/08/23 Kristen Mancera MD Medical Oncologist/Lace Roller Operator Medical Oncology 11/21/20 documented as of this encounter
--- OUTSIDE RECORDS SUMMARY | 2024-10-06 07:04 | XMS_ITS | Encounter Summary ---
Author Organization [facility] Address [address] [place] [address] Phone Care Team Providers Care Coastal/Harbor Defense Officer Name Role Phone Kristen Mancera MD Unavailable Kacey Gonzalez MD Primary Care Provider [phone] [phone] Lewis Sunshine MD Unavailable [phone]- [phone] Encounter Details Date Type Department Care Team (Late st Contact Info) Description 02/02/2023 Telephone [facility] Bone Marrow Transplant [address] [facility] 7th Floor, [place] [address] Vita Hunter, RN Social History [...] on file Legal Sex Female 10:19 PM INSPECTOR AND SORTER Gender Identity Not on file Sexual Orientation Not on file documented as of this encounter Miscellaneous Notes * Telephone Encounter - Vita Jones RN - 02/02/2023 10:35 AM CDT Left VM asking patient to reschedule her return visit for any Tuesday in February 2023. Currently scheduled with Lolita SEPULVEDA on 02/04. documented in this encounter Plan of Treatment Not on file documented as of this encounter Visit Diagnoses Not on filedocumented in this encounter Care Teams Coastal/Harbor Defense Officer Relationship Specialty Start Date End Date Kacey Gonzalez MD PCP - General Family Medicine 04/07/21 06/08/23 Kristen Mancera MD Medical Oncologist/Senior Research Scientist Medical Oncology 11/21/20 Lewis Sunshine MD [address] [address] Surgeon Orthopedic Surgery 01/05/23 documented as of this encounter
--- OUTSIDE RECORDS SUMMARY | 2024-10-06 07:04 | XMS_ITS | Encounter Summary ---
Author Organization [facility] Healthcare Address [address] [place] [address] Care Team Providers Care Continuous Process Rotary Drum Tanner Name Role Phone Kristen Mancera MD Unavailable Kacey Gonzalez MD Primary Care Provider [phone] Reason for Referral * Diagnostic Imaging (Routine) - Closed Specialty Diagnoses / Procedures Referred By Contac t Referred To Contact Diagnoses Lumbar spine pain Procedures XR Spine Lumbar 2 [place] [address] [place] [address] Phone: tel: fax: [facility] Referral ID Status Reason Start Date Expiration Date Visits Re quested Visits Authorized [id number] Closed 11/01/2022 12/01/2023 1 1 ORDER CLERK Reason for Visit * Diagnostic Imaging (Routine) - Closed Specialty Diagnoses / Procedures Referred By Contac t Referred To Contact Diagnoses Lumbar spine pain Procedures XR Spine Lumbar 2 [place] 3 [place] [address] [place] [address] Phone: tel: fax: [facility] Referral ID Status Reason Start Date Expiration Date Visits Re quested Visits Authorized [id number] Closed 11/01/2022 12/01/2023 1 1 Encounter Details Date Type Department Care Team (Latest Contact Info) Description 11/01/2022 1:23 PM JOB ORDER CLERK - 11/01/2022 11:59 PM JOB ORDER CLERK Hospital Encounter [facility] [address] [place] [address] Lumbar spine pain Discharge Disposition: Discharge to home or self [...] on file Legal Sex Female 10:19 PM JOB ORDER CLERK Gender Identity Not on file Sexual Orientation [...] mouth nightly 30 capsule 11/01/2022 01/06/20 23 predniSONE (DELTASONE) 10 mg tablet Prednisone 10 mg tabs Dispense: 30 tabs: Take 4 tabs once daily for 3 days, then; Take 3 tabs once daily for 3 days, then; Take 2 tabs once daily for 3 days, then; Take 1 tab once daily for 3 days. 30 tablet 11/01/2022 12/01/19 23 triamcinolone (KENALOG) 0.1 % creamIndications:T ransient acantholytic dermatosis (bisi) Apply topically 2 (two) times a day 80 g 1 04/20/2022 01/06/20 23 zolpidem (AMBIEN) 10 mg tabletIndications: Neutropenia, unspecified type (HCC) TAKE 1 TABLET BY MOUTH EVERY DAY AT NIGHT 30 tablet 10/20/2022 11/24/19 23 documented as of this encounter Discharge Disposition Disposition Code Departure Means Destination Discharge to home or self care documented in this encounter Plan of Treatment Not on file documented as of this encounter Procedures Procedure Name Priority Date/Time Associated Diagnosis Comments XR SPINE LUMBAR 2 OR 3 VIEWS Schedule Routine, Read Routine (OP Routine) 11/01/2022 1:31 PM JOB ORDER CLERK Lumbar spine pain documented in this encounter Results * XR Spine Lumbar 2 or 3 Views (11/01/2022 1:31 PM JOB ORDER CLERK) Anatomical Region Laterality Modality Spine N/A Computed Radiogr aphy 11/01/2022 1:36 PM JOB ORDER CLERK Impressions 11/01/2022 1:36 PM JOB ORDER CLERK 1. Minimal stepwise retrolisthesis of L1-L3. Disc heights are preserved. Electronically signed by: Rodrigo Tarango MD Narrative 11/01/2022 1:36 PM JOB ORDER CLERK EXAM: 1. ??XR SPINE LUMBAR 2 OR 3 VIEWS HISTORY: Low back pain. FINDINGS: 2 radiographs of the lumbar spine are submitted without comparison. Minimal stepwise retrolisthesis of L1-L3. Disc heights are preserved. No compression deformity. Minimal lumbar levocurvature. Intrauterine contraceptive device projects over the pelvis. Procedure Note Rodrigo Tarango MD - 11/01/2022 EXAM: 1. XR SPINE LUMBAR 2 OR 3 VIEWS HISTORY: Low back pain. FINDINGS: 2 radiographs of the lumbar spine are submitted without comparison. Minimal stepwise retrolisthesis of L1-L3. Disc heights are preserved. No compression deformity. Minimal lumbar levocurvature. Intrauterine contraceptive device projects over the pelvis. IMPRESSION: 1. Minimal stepwise retrolisthesis of L1-L3. Disc heights are preserved. Electronically signed by: Rodrigo Tarango MD Nelsy RODRIGUES IMG XR PROCEDURES Final Res ult documented in this encounter Visit Diagnoses Diagnosis Lumbar spine pain documented in this encounter Care Teams Continuous Process Rotary Drum Tanner Relationship Specialty Start Date End Date Kacey Gonzalez MD PCP - General Family Medicine 04/07/21 06/08/23 Kristen Mancera MD Medical Oncologist/Rip Machine Operator Medical Oncology 11/21/20 documented as of this encounter
--- OUTSIDE RECORDS SUMMARY | 2024-10-06 07:04 | XMS_ITS | Encounter Summary ---
Author Organization [facility] Address [address] [place] [address] Phone Care Team Providers Care Hand Lacer Name Role Phone Kristen Mancera MD Unavailable Kacey Gonzalez MD Primary Care Provider [phone] Lewis Sunshine MD Unavailable [phone] Encounter Details Date Type Department Care Team (Late st Contact Info) Description 01/12/2023 Telephone [facility] Bone Marrow Transplant [address] [facility] Advanced Medicine 7th Floor, [place] [address] Kristen Mancera MD [address] DIV IM BONE MARROW [employer]PL[employer] [place] [address] Social History Tobacco Use Types Packs/Day Years [...] on file 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 * Telephone Encounter - Niurka Fowler - 01/12/2023 8:34 AM CDT Patient calling to reschedule her appointments that were scheduled Tuesday. documented in this encounter Plan of Treatment Not on file documented as of this encounter Visit Diagnoses Not on filedocumented in this encounter Care Teams Hand Lacer Relationship Specialty Start Date End Date Kacey Gonzalez MD PCP - General Family Medicine 04/07/21 06/08/23 Kristen Mancera MD Medical Oncologist/Document Analyst Medical Oncology 11/21/20 Lewis Sunshine MD [address] [address] Surgeon Orthopedic Surgery 01/05/23 documented as of this encounter
--- OUTSIDE RECORDS SUMMARY | 2024-10-06 07:04 | XMS_ITS | Encounter Summary ---
Author Organization [facility] Address [address] [place] [address] Phone Care Team Providers Care Product Promoter Retail Pet Name Role Phone Kristen Mancera MD Unavailable Kacey Gonzalez MD Primary Care Provider [phone] Encounter Details Date Type Department Care Team (Late st Contact Info) Description 07/16/2022 11:00 AM CDT Office Visit [facility] Bone Marrow Transplant [address] [facility] Advanced Medicine 7th Floor, [place] [address] Krsiten Mancera MD [address] IM BONE MARROW TR[employer]ANT, [address] [place], [place] [id number] 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); Neutropenia, unspecified type (HCC) Social History Tobacco Use Types Packs/Day Years Used Date Smoking Tobacco: Never Smokeless Tobacco: Never PHQ-2 Answer Date Recorded PHQ-2 Total Score (If total score is 3 or more points, staff should administer the PHQ-9) 0 04/20/2022 Comments No Sex and Gender Information Value Date Recorded Sex Assigned at Not on file 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 Gender Identity Not on file Sexual Orientation Not on file documented as of this encounter Last Filed Vital Signs Vital Sign Reading Time Taken Comments Blood Pressure 123/84 07/16/2022 10:53 AM CDT Pulse 71 07/16/2022 10:53 AM CDT Temperature 36.7 ??C (98.1 ??F) 07/16/2022 10:53 AM C DT forehead Respiratory Rate 17 07/16/2022 10:53 AM CDT Oxygen Saturation 99% 07/16/2022 10:53 AM CDT Inhaled Oxygen Concentration - - Weight 53.6 kg (118 lb 3.2 oz) 07/16/2022 10:53 AM CDT Height - - Body Mass Index 21.61 04/20/2022 1:24 PM CDT documented in this encounter Progress Notes * Kristen Mancera MD - 07/16/2022 11:00 AM CDT BMT Progress Note Oncology History No history exists. Active Treatment & Therapy Plans for Karen Medeiros Melissa A does not have any active plans of the following types: Oncology Chemotherapy Treatment, Oncology Treatment (2), Oncology Treatment (3), Oncology Supportive Care, Specialty InfusionTreatment, Blood Products, BMT, Hematology Subjective Interval History Ms. Medeiros is 51 y/o woman, here today for scheduled follow up. She has a history of neutropenia with homozygote mutation MTHFR. [employer] panel is negative. She is doing very well and has no complaints. Everybody in her family had a little cold and she currently has it. COVID negative. At today's labs she is little more neutropenic than usually, ANC 0.6. There is no Hx of frequent infections, fevers or chills. No nausea, vomiting or diarrhea. She feelsvery well overall. Allergies Allergen Reactions Ibuprofen Rash Tolmetin Unknown Outpatient Encounter Medications as of 07/16/2022: ALPRAZolam (XANAX) 0.25 mg tablet, TAKE 1 TABLET BY MOUTH 2 TIMES A DAY., Disp: 30 tablet, Rfl: 1 triamcinolone (KENALOG) 0.1 % cream, Apply topically 2 (two) times a day, Disp: 80 g, Rfl: 1 zolpidem (AMBIEN) 10 mg tablet, Take 1 tablet (10 mg total) by mouth nightly, Disp: 30 tablet, Rfl:3 levonorgestrel (MIRENA) IUD, 1 Device by intrauterine route., Disp: , Rfl: Review of Systems Review of systems per HPI and otherwise all systems are negative Performance Status: ECOG 0 Objective Vitals: BP: 123/84 Temp: 36.7 ??C (98.1 ??F) (forehead) Temp src: Transdermal Pulse: 71 Resp: 17 SpO2: 99 % Weight: 53.6 kg (118 lb 3.2 oz) Physical exam: General: Well appearing, in no acute distress HEENT: PERRLA, No thrush or mucositis. Left ear with bloody drainage, possible perforation Nodes: No enlarged preauricular, submandibular, cervical, supraclavicular, infraclavicular, axillary or inguinal nodes. Lungs: Clear to auscultation. Heart: Regular in rate in rhythm. No rubs, murmurs, or gallops Abdomen: Soft, non-tender. No hepatosplenomegaly or palpable masses. Extremities: No edema. Skin: No rash or lesions. Neurologic: CN's II-XII intact. Speech fluent. Gait steady. Lab/Radiology/Diagnostic Review: Hematology Lab History Some values may be hidden. Unless noted otherwise, only the newest values recorded on each date aredisplayed. Labs - Hematology Latest Ref Range 07/16/22 WBC 3.8 - 9.8 K/cumm 2.5 (A) Total Hb, POC 12.1 - 15.1 g/dL 13.1 Hct 36.1 - 44.3 % 39.0 Plt 140 - 440 K/cumm 224 Neutrophil abs 1.8 - 6.6 K/cumm 0.6 (A) Lymphocytes, abs 1.2 - 3.3 K/cumm 1.0 (A) (A) Abnormal value Comments are available for some flowsheets but are not being displayed. Chem/LFT Lab History Some values may be hidden. Unless noted otherwise, only the newest values recorded on each date aredisplayed. Labs-Chem/LFT Latest Ref Range 07/16/22 Sodium 135 - 145 mmol/L 139 Creatinine 0.60 - 1.10 mg/dL 0.61 Bilirubin, total 0.1 - 1.2 mg/dL 0.5 AST 10 - 45 Units/L 17 ALT 7 - 45 Units/L 13 CrCl- Actual Body Weight (Cockcroft-Gault) 93.4 Comments are available for some flowsheets but are not being displayed. Assessment/Plan Ms. Medeiros is 50 y/o woman with Hx of Neutropenia with MTHFR mutation. Her ANC is 1. 7 today, counts are stable. She has no recent infections. We will continue to monitor. Follow up. She will return to our clinic in six months. She knows to call us with any questions or concerns. documented in this encounter Plan of Treatment Not on file documented as of this encounter Results * Lactate dehydrogenase (LD) (03/04/2023 10:47 AM CDT) Lactate dehydrogenase (LDH) 118 100 - 250 Units/L [facility] Comment:Testing performed by : [facility], [address] [place] [phone] Blood 03/04/2023 10:4 7 AM CDT 03/04/2023 10:48 AM CDT us Kristen Mancera MD LAB BLOOD ORDERABLES Final Resul t [facility] Department [place] [address] * (ABNORMAL) Comprehensive metabolic panel (03/04/2023 10:47 AM CDT) Pathologist [facility] Sodium 137 135 - 145 mmol/L [facility] Comment:Testing performed by : [facility], [address] [place] [phone] Potassium, pl 4.8 3.3 - 4.9 mmol/L [facility] Comment:Testing performed by : [facility], [address] [place] [phone] Chloride 102 97 - 110 mmol/L [facility] Comment:Testing performed by : [facility], [address] [place] [phone] CO2 30 22 - 32 mmol/L [facility] Comment:Testing performed by : [facility], [address] [place] [phone] Anion gap 5 2 - 15 mmol/L [facility] Comment:Testing performed by : [facility], [address] [place] [phone] BUN 12 8 - 25 mg/dL [facility] Comment:Testing performed by : [facility], [address] [place] [phone] Creatinine 0.59(L) 0.60 - 1.10 mg/dL [facility] Comment:Testing performed by : [facility], [address] [place] [phone] Glucose 84 70 - 199 mg/dL CERNER [...] Current interpretive data was last revised 2022. Testing performed by: [facility], [address] [place] [phone] Calcium 9.7 8.5 - 10.3 mg/dL [facility] Comment:Testing performed by : [facility], [address] [place] [phone] Bilirubin, total 0.4 0.1 - 1.2 mg/dL [facility] Comment:Testing performed by : [address] [phone] Protein, pl 7.0 6.5 - 8.5 g/dL [facility] Comment:Testing performed by : [facility], [address] [place] [phone] Albumin 4.3 3.5 - 5.0 g/dL [facility] Comment:Testing performed by : [address] [phone] Alk phos 40 40 - 130 Units/L [facility] Comment:Testing performed by : [address] [phone] ALT 10 7 - 45 Units/L [facility] Comment:Testing performed by : [facility], [address] [place] [phone] AST 15 10 - 45 Units/L [facility] Comment:Testing performed by : [facility], [address] [place] [phone] Blood 03/04/2023 10:4 7 AM CDT 03/04/2023 10:48 AM CDT us Kristen Mancera MD LAB BLOOD ORDERABLES Final Resul t [facility] Department [place] [address] * CBC with auto differential (03/04/2023 10:47 AM CDT) WBC 4.4 3.8 - 9.8 K/cumm [facility] Comment:Testing performed by : [facility], [address] [place] [phone] Hgb 13.1 12.1 - 15.1 g/dL [facility] Comment:Testing performed by : [facility], [address] [place] [phone] Hct 39.4 36.1 - 44.3 % [facility] Comment:Testing performed by : [facility], [address] [place] [phone] Plt 272 140 - 440 K/cumm [facility] Comment:Testing performed by : [facility], [address] [place] [phone] MPV 8.2 6.8 - 10.4 fL [facility] Comment:Testing performed by : [address] [phone] RBC 4.21 3.90 - 5.00 M/cumm [facility] Comment:Testing performed by : [address] [phone] MCV 93.6 80.0 - 97.6 fL [facility] Comment:Testing performed by : [address] [phone] MCH 31.2 26.7 - 33.7 pg [facility] Comment:Testing performed by : [facility], [address] [place] [phone] MCHC 33.3 32.7 - 35.5 g/dL [facility] Comment:Testing performed by : [facility], [address] [place] [phone] RDW CV 12.0 11.8 - 14.6 % [facility] Comment:Testing performed by : [facility], [address] [place] [phone] NRBC abs 0.00 0.00 - 0.01 K/cumm [facility] Comment:Testing performed by : [facility], [address] [place] [phone] Blood 03/04/2023 10:4 7 AM CDT 03/04/2023 10:48 AM CDT Kristen Mancera MD LAB BLOOD ORDERABLES Final Resul t [facility] Department [place] [address] documented in this encounter Visit Diagnoses Diagnosis Homozygous MTHFR mutation C677T- Primary Neutropenia, unspecified type (HCC) documented in this encounter Orders Appointment Requests Count Last Ordered Date Fi rst Ordered Date [facility] CLINIC APPOINTMENT REQUEST 2 023 07/16/2022 ON[facility] LAB APPOINTMENT 1 03/04/2023 documented in this encounter Care Teams Product Promoter Retail Pet Relationship Specialty Start Date End Date Kacey Gonzalez MD PCP - General Family Medicine 04/07/21 06/08/23 Kristen Mancera MD Medical Oncologist/Egg Smeller Medical Oncology 11/21/20 documented as of this encounter
--- OUTSIDE RECORDS SUMMARY | 2024-10-06 07:04 | XMS_ITS | Encounter Summary ---
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 [M51.16] Procedures MI ARTHRODESIS POSTERIOR INTERBODY 1 NTRSPC LUMBAR DISCECTOMY - LUMBAR- LEFT L5-S1 Discectomy Posterior Lumbar Spine Referral ID Status Reason Start Date Expiration Date Visits Re quested Visits Authorized [id number] 1 1 Encounter Details Date Type Department Care Team (Late st Contact Info) Description 01/11/2023 7:30 AM CDT - 01/11/2023 11:05 AM CDT Surgery [facility] Operating Room [address] [place] [address] Lewis Sunshine MD [address] [facility] [address] [place] [address] DISCECTOMY - LUMBAR- LEFT L5-S1 Discectomy Posterior Lumbar Spine Surgery Details Date/Time Status Location OR Service Patient Class Case Cl ass Case Type Trauma Case? 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 acetaminophen (TYLENOL) 500 mg tabletIndications: [...] 06/09/20 23 documented as of this encounter Ordered Prescriptions Prescription Sig Dispense Quantity Refills Last Filled Start Date End Date oxyCODONE (ROXICODONE) 5 mg immediate release tabletIndications :Pain Take 1 tablet (5 mg total) by mouth every 4 (four) hours as needed for pain (as needed for breakthrough pain) 40 tablet 01/11/2023 3 methocarbamoL (ROBAXIN) 500 mg tabletIndications :Muscle Spasm Take 1 tablet (500 mg total) by mouth 4 (four) times a day 42 tablet 01/11/2023 3 senna-docusate (Senna with Docusate Sodium) 8.6-50 mgIndications:con stipation Take 1 tablet by mouth 2 (two) times a day 60 tablet 01/11/2023 3 acetaminophen (TYLENOL) 500 mg tabletIndications :Pain Take 2 tablets (1,000 mg total) by mouth every 8 (eight) hours 60 tablet 01/11/2023 3 documented in this encounter Discharge Disposition Disposition Code Departure Means Destination Comment s Discharge to home or self care documented in this encounter H&P Notes * Mainor Faria MD - 01/11/2023 6:48 AM CDT I have reviewed the H&P, examined the patient, and endorse the findings as written. Plan of Care : Based on the above findings, I consider Karen Medeiros to be an acceptable risk for : Procedure(s): DISCECTOMY - LUMBAR- LEFT L5-S1 Discectomy Posterior Lumbar Spine Spine: General: Patient in NAD Skin intact and marked for OR Motor: Muscle Strength Right Left Deltoid 5/5 5/5 Biceps 5/5 5/5 Triceps 5/5 5/5 Wrist extension 5/5 5/5 Wrist flexion 5/5 5/5 Radiology Resident 5/5 5/5 Interosseous of hand 5/5 5/5 Iliopsoas 5/5 5/5 Quadriceps 5/5 5/5 Tibialis anterior 5/5 5/5 Extensor hallicus longus 5/5 5/5 Gastrocsoleus complex 5/5 5/5 Sensation Left upper extremity: sensation intact to light touch in C5 to T1 dermatomes. Right upper extremity: sensation intact to light touch in C5 to T1 dermatomes. Left lower extremity: sensation intact to light touch in L2 to S1 dermatomes. Right lower extremity: sensation intact to light touch in L2 to S1 dermatomes. Long-tract signs: Negative Sheth's bilaterally No clonus bilaterally Downgoing Babinski bilaterally Deep Tendon Reflexes: 2+ Patellar reflexes bilaterally 2+ Achilles reflexes bilaterally Vascular: Bilateral Upper Extremity: 2+ radial pulse, fingers WWP Bilateral Lower Extremity 2+ pedal pulses, toes WWP with BCR Cosigned by Lewis Sunshine MD at 01/11/2023 7:14 AM CDT Source Note - Angeles Meza, MACHINING DEPARTMENT SUPERVISOR - 01/05/2023 9:41 AM CDT Images from the original note were not included. Center for Preoperative Assessment and Planning Preoperative Evaluation Record Evaluation type/location: [facility] Planned procedure site: [facility] (Pods 2/3/5/CREDIT AND LOAN COLLECTIONS SUPERVISOR) Date: 01/05/23 Anesthesia Evaluation Karen Medeiros is a 52 y.o. female Procedure(s): DISCECTOMY - LUMBAR- LEFT L5-S1 Discectomy Posterior Lumbar Spine Pre-Op Diagnosis Codes: * Lumbar disc herniation with radiculopathy [M51.16] HISTORY HPI Karen Medeiros is a 52 y.o. female, with PMH of anxiety and neutropenia with homozygote mutationMTHFR who is being pre-op for discectomy lumbar left L5-S1 due to lumbar disc herniation with radiculopathy. Past Medical History Information obtained from: patient and chart. Neurological + Psychiatric history - anxiety Pertinent negatives: neuromuscular disease Musculoskeletal/Pain + Chronic pain (due to current diagnosis ) - back pain. Endocrine / Other + Infectious disease (H/O COVID 2020 did not require hospitilization or supplemental 02) Pertinent negatives: rheumatological disease Functional Capacity Functional capacity: 4-6 METs Comments: Prior to current injury patient states that she worked out at the gym 4 times a week without chest pain or SOB Review of Systems + muscle weakness (left leg due to current diagnosis ) + chronic pain (due to current diagnosis ) + numbness/tingling (left leg and foot due to current diagnosis) + vision loss (wears corrective lenses (contacts)) Comments: Patient denies any S/S of UTI. Patient denies problems laying flat due to SOB, just back, glut and left leg pain PAT Summary and Plans Cardiac risk classification of planned procedure: intermediate cardiac risk. Preoperative assessment status: lab tests ordered. Initial preoperative evaluation discussed with: Gonzalo Archibald MD Additional comments: Karen Medeiros is a 52 y.o. female who is being evaluated prior to undergoing an intermediate cardiac risk surgery. Revised Cardiac Risk Index factors are (none) for a total RCRI of 0 out of 6. Functional capacity is 4-6 METs. Obstructive sleep apnea (NATHANAEL) screening status is STOP-Bang=1 suggesting low risk for NATHANAEL Blood bank needs for day of procedure: Type and Screen only Pending labs/tests include: CMP T&S Urinalysis flex Vitamin D, cotinine level, urine nicotine metabolite, Hgb A1c, Sed rate and DOS urine HCG CBC from 01/03/23 unremarkable Hematology Lab History Labs - Hematology Latest Ref Range 07/16/22 01/03/23 WBC 3.8 - 9.8 K/cumm 2.5 (A) 4.1 Total Hb, POC 12.1 - 15.1 g/dL 13.1 13.6 Hct 36.1 - 44.3 % 39.0 40.5 Plt 140 - 440 K/cumm 224 302 Neutrophil abs 1.8 - 6.6 K/cumm 0.6 (A) 1.6 (A) Lymphocytes, abs 1.2 - 3.3 K/cumm 1.0 (A) 1.6 (A) Abnormal value Reviewed with CPAP Attending: ++ PMH and current HPI (including neutropenia with homozygote mutation MTHFR followed by Hem/Onc Dr. Mancera) ++ Labs and Diagnostics ++ Meds and Plan of Care ++ No further CPAP attending recommendations Preoperative evaluation performed by Adriana Morrell NP on 01/05/23 at 5:17 PM. . Follow up note Labs reviewed and are without significant findings. Awaiting additional lab results: urine nicotine/cotinine. Surgeon's office reviews laboratory results independently, including final results of surgeon ordered labs. Follow-up completed by: Kayla Ruiz NP on 01/06/23 at 8:59 AM Follow up note Plasma cotini e/nicotine without significant findings Surgeon's office reviews laboratory results independently, including final results of surgeon ordered labs. CPAP process complete. Follow-up completed by: Angeles Meza NP on 01/10/23 at 8:46 AM Patient Active Problem List Diagnosis ??? Neutropenia (HCC) ??? Homozygous MTHFR mutation [id number] ??? IUD contraception ??? Breast pain, left ??? 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CMS/HCC) (HCC) ??? Lumbar disc herniation with radiculopathy Past Medical History: Diagnosis Date ??? Anxiety 1999 Past Surgical History: Procedure Laterality Date ??? BREAST SURGERY 04/2003 ??? FL UPPER GI AIR CONTRAST W KUB Left 11/12/2022 ??? HAND SURGERY Right saggital band surgery OB History No obstetric history on file. No Known Allergies Med List Status: Nurse Complete Set By: Thelma Lugo RN at 01/05/2023 4:30 PM Taking? Last Dose Start Date End Date Provider ALPRAZolam (XANAX) 0.25 mg tablet Past Month 08/03/22 -- Arturo Wallace MD Take 1 tablet (0.25 mg total) by mouth 2 (two) times a day Patient taking differently: Take 1 tablet (0.25 mg total) by mouth 2 (two) times a day Notes: Not to exceed 4 additional fills before 06/08/2022 ibuprofen 200 mg tab/cap Past Week -- -- ProviderInés MD levonorgestrel (MIRENA) IUD () More than a month 02/22/14 11/01/22 ProviderInés MD multivitamin capsule 01/05/2023 -- -- Inés Correa MD mupirocin (BACTROBAN) 2 % ointment -- 01/06/23 01/10/23 Lewis Sunshine MD Apply a small amount to the inside of each nostril using a clean Q-tip for each nostril twice a dayfor 5 days prior to surgery. Notes: Pre-op zolpidem (AMBIEN) 10 mg tablet 01/04/2023 12/23/22 -- Kacey Gonzalez MD TAKE 1 TABLET BY MOUTH EVERY DAY AT NIGHT Patient taking differently: Take 1 tablet (10 mg total) by mouth nightly as needed Notes: Not to exceed 5 additional fills before 04/18/2023 -- Patient not taking: Notes: -- Patient not taking: Current Outpatient Medications: ??? ALPRAZolam (XANAX) 0.25 mg tablet ??? ibuprofen 200 mg tab/cap ??? multivitamin capsule ??? zolpidem (AMBIEN) 10 mg tablet ??? levonorgestrel (MIRENA) IUD ??? [START ON 01/06/2023] mupirocin (BACTROBAN) 2 % ointment Social History Tobacco Use Smoking Status Never Smokeless Tobacco Never Alcohol Use: Not At Risk ??? Frequency of Alcohol Consumption: 4 or more times a week ??? Average Number of Drinks: 1 or 2 ??? Frequency of Binge Drinking: Never Substance and Sexual Activity Drug Use Never Family History Problem Relation Age of Onset ??? Non-Hodgkin's Lymphoma Mother ??? Cancer Mother ??? No Known Problems Father ??? No Known Problems Sister ??? No Known Problems Brother ??? Anesthesia problems Neg Hx PAT Physical Exam Airway Exam: Mallampati: II Cervical ROM: FROM TM distance: 3 Upper lip bite test class: 1 Cardiovascular Exam: Rate: regular Rhythm: regular Negative for Murmur Negative for peripheral edema JVD negative Pulmonary Exam: LCTA, bilat EENT Exam: trachea midline Dental Exam: Appears intact Skin Exam: Skin is warm and dry. Abdominal exam: Abdomen is soft. Bowel sounds are present. Current state: Patient's current state is cooperative and interactive. Vitals: 01/05/23 1620 01/05/23 1626 BP: 134/92 133/89 Pulse: 70 SpO2: 100% Relevant diagnostics: ECG(s): N/A Echocardiogram(s): N/A Stress test(s): N/A Cardiac catheterization(s): N/A PFT(s): N/A Vascular studies: N/A Other: 12/01/22 XR scoliosis IMPRESSION: 1. Mild L5-S1 degenerative disc disease. PT: No results found for requested labs within last 720 hours. INR: No results found for requested labs within last 720 hours. APTT: No results found for requested labs within last 720 hours. Hgb A1C: No results found for requested labs within last 720 hours. CBC RBC: 01/03/2023: 4.26 M/cumm RDW: No results found for requested labs within last 720 hours. MCHC: 01/03/2023: 33.6 g/dL MCH: 01/03/2023: 31.9 pg MCV: 01/03/2023: 95.0 fL Hct: 01/03/2023: 40.5 % Hgb: 01/03/2023: 13.6 g/dL WBC: 01/03/2023: 4.1 K/cumm MPV: 01/03/2023: 8.2 fL Platelets: 01/03/2023: 302 K/cumm RDW CV: 01/03/2023: 12.1 % RDW Sd: No results found for requested labs within last 720 hours. BMP Glucose: No results found for requested labs within last 720 hours. Calcium: No results found for requested labs within last 720 hours. Sodium: No results found for requested labs within last 720 hours. Potassium: No results found for requested labs within last 720 hours. CO2: No results found for requested labs within last 720 hours. Chloride: No results found for requested labs within last 720 hours. BUN: No results found for requested labs within last 720 hours. Creatinine: No results found for requested labs within last 720 hours. STOP-Bang Total Score: 1 Tejas index score: 100 documented in this encounter Miscellaneous Notes * Op Note - Lewis Sunshine MD - 01/11/2023 8:29 AM CDT Operative Report Surgeon Lewis Sunshine MD, MS Crop Or Grain Farmer(s) Mainor Faria MD Anesthesia General endotracheal. Preoperative Diagnosis 1. Left L5-S1 disc herniation with radiculopathy Postoperative Diagnosis Same Procedure(s) 1. Left L5-S1 laminotomy and microdiskectomy Indications for Surgery Karen Medeiros is a 52 y.o. female who presented to my office with a chief complaint of left legpain. She is found to have a left L5-S1 disc herniation causing compression of the S1 nerve root. She had tried and failed numerous conservative treatments.. The patient failed nonoperative treatmentand requested surgical treatment. The indications for the procedure, the potential risks, expected benefits, and alternatives to surgery were discussed with the patient and the patient gave her informed consent to proceed. Operative Findings Disc herniation removed and the nerve was free of compression or tension Description The operative site was identified and marked in the preoperative holding area. The patient was thenbrought back to the operating room supine on the hospital stretcher. She was administered a generalanesthetic and oral endotracheal intubation was performed by the anesthesiology service team. Additional intravenous access was obtained. Preoperative intravenous antibiotics consisting of Ancef and vancomycin were administered for infection prophylaxis. Patient was flipped prone onto the Tio frame. All bony prominences were properly padded and the patient's abdomen and axillae were allowed tohang free. The eyes were free of compression. Once we were satisfied with the patient's position onthe operating table, the patient was secured to the table. The entire posterior lumbar spine was then prepped and draped in the usual sterile fashion using chlorhexidine scrub followed by alcohol andChloraPrep. A multidisciplinary time- out confirming patient and surgery. Everyone in the room was in agreement. Posterior midline approach the lumbar spine was performed. Skin was incised with knife subcu tissues divided with cautery. The fascia was incised on the left side and the subperiosteal dissection proceeded to the medial facet joint. Level was confirmed with fluoroscopy. He has a high-speed drill tomake a laminotomy in the bottom of the L5 lamina and extending to the medial facet a few mm. I useda curette to elevate the ligamentum off the sacrum and then also off the underside of the L5 laminaelevated this with a nerve hook and removed with a Kerrison. This revealed the lateral dura I gently swept the dura medial and visualized the disc herniation. I used a Hidalgo 4 to widen the obvioushernia defect and then used a nerve hook to extract the disc herniation and removed with a pituitary. I used a pituitary to go in the disc space and remove any loose pieces and then I swept under thenerve and there was no more compression nerve was not under tension I also swept under the PLL there was no more disc that I could extract. Hemostasis was achieved I irrigated put 500 mg vancomycin powder in the wound closed the fascia with 1. Vicryl followed by number Stratafix. Skin was closed with the 2-0 PDS Stratafix followed by a 3-0 Monocryl Stratafix. Skin was sealed with Dermabond and Steri-Strips and sterile dressing was applied. The patient was flipped supine on the hospital bed she is extubated without complication brought back to recovery in stable condition. I was scrubbed and present for all critical portions of the procedure including exposure, laminotomy and diskectomy. I was immediately available for all non- critical portions of the procedure. Implant Information Nothing was implanted during the procedure Specimens None. Counts Correct. Estimated Blood Loss 25 cc Complications None. Condition on Discharge Stable. Lewis Sunshine M.D., M.S. Supervisor [employer] [facility] [place], [place] Operative Report dictated by Lewis Sunshine MD, MS. on 01/11/23 using Fluency Direct. Roller Mill Operator variances may occur. documented in this encounter Plan of Treatment Not on file documented as of this encounter Procedures Procedure Name Priority Date/Time Associated Diagnosis Comments FL FLUOROSCOPY < 1 HOUR IP Routine 01/13/2023 12:47 PM CDT DISCECTOMY - LUMBAR 01/11/2023 7 :31 AM CDT Lumbar disc herniation with radiculopathy POCT HCG, URINE Routine 01/11/2023 6:15 AM CDT documented in this encounter Results * FL Fluoroscopy < 1 Hour (01/13/2023 12:47 PM CDT) Narrative [facility] - 01/13/2023 12:47 PM CDT The images from this study are not interpreted by Radiology. ??Please refer to the physician's procedure / OR operative note. Lewis Sunshine MD IMG FLUOROSCOPY PROC EDURES Final Result [facility] * POCT hCG, urine (01/11/2023 6:15 AM CDT) HCG, ur, POC Negative Lot Number [id number] QC Backgroud Clear Acceptable QC Control Line Acceptable Urine 01/11/2023 6:15 AM CDT Adriana Morrell NP POINT OF CARE TEST ORDERABLES F inal Result documented in this encounter Visit Diagnoses Diagnosis Lumbar disc herniation with radiculopathy- Primary Displacement of lumbar intervertebral disc without myelopathy Lumbar disc herniation with radiculopathy Displacement of lumbar intervertebral disc without myelopathy documented in this encounter Admitting Diagnoses Diagnosis Lumbar disc herniation with radiculopathy Displacement of lumbar intervertebral disc without myelopathy documented in this encounter Administered Medications Inactive Administered Medications - up to 3 most recent administrations Medication Order MAR Action Action Date Dose Rate Site acetaminophen (TYLENOL) tablet 1,000 mg 1,000 mg, oral, Once, On Tue01/11/23 at 0645, For 1 dose, Pre-Op, Indications: pre-op medIndications:pre-op med Given 01/11/2023 6:12 AM CDT 1,000 mg bupivacaine-EPINEPHrine (MARCAINE with EPI) 0.25 %-1:200,000 preservative free injection As needed, Starting on Tue01/11/23 at 0942, Intra-Op Given 01/11/2023 9:42 AM CDT 6 mL Surgical Site gabapentin (NEURONTIN) capsule 300 mg 300 mg, oral, Once, On Tue01/11/23 at 0645, For 1 dose, Pre-Op, Indications: pre-op medIndications:pre-op med Given 01/11/2023 6:12 AM CDT 300 mg HYDROmorphone (DILAUDID) injection 0.2 mg 0.2 mg, intravenous, Administer over 2 Minutes, Every 10 min PRN, 1st line for pain, Starting on Tue01/11/23 at 1018, Phase I, Notify PACU Anesthesiologist or Resident if total PACU dose reaches 2 mg and pain score 5/10 or more., Indications: PainIndications:Pain Given 01/11/2023 10:59 AM CDT 0.2 mg Given 01/11/2023 10:43 AM CDT 0.2 mg Lactated Ringer's (LR) infusion 30 mL/hr, intravenous, Continuous, Starting on Tue01/11/23 at 0645, Pre-Op Restarted 01/11/2023 9:48 AM CDT Rate/Dose Verify 01/11/2023 7:27 AM CDT 30 mL/h r New Bag 01/11/2023 6:12 AM CDT 30 mL/hr 30 mL/hr oxyCODONE (ROXICODONE) tablet 5 mg 5 mg, oral, Once, On Tue01/11/23 at 1130, For 1 dose, Phase I & Post-op Floor, Indications: PainIndications:Pain Given 01/11/2023 10:58 AM CDT 5 mg sodium chloride 0.9% irrigation As needed, Starting on Tue01/11/23 at 0846, Intra-Op Given 01/11/2023 8:46 AM CDT 1,000 mL Surgical Site thrombin-recombinant 5,000 unit topical solution As needed, Starting on Tue01/11/23 at 0846, Intra-Op Given 01/11/2023 8:46 AM CDT 5,000 Units vancomycin (VANCOCIN) solution As needed, Starting on Tue01/11/23 at 0943, Intra-Op Given 01/11/2023 9:43 AM CDT 500 mg Surgical Site documented in this encounter Discontinued Medications Medication Sig Discontinue Reason Start Date End Da te mupirocin (BACTROBAN) 2 % ointment Apply a small amount to the inside of each nostril using a clean Q-tip for each nostril twice a day for 5 days prior to surgery. Stop Taking at Discharge 01/06/2023 01/11/2023 ibuprofen (ADVIL,MOTRIN) 200 mg tab/capIndications:Ant i-inflammatory,Pain Take 2 tablet/capsule (400 mg total) by mouth every 6 (six) hours as needed for pain Stop Taking at Discharge 01/11/2023 documented as of this encounter Active and Recently Administered Medications Times are shown in CDT. Scheduled Medication Order 01/09/2023 01/10/2023 01/11/2023 acetaminophen (TYLENOL) tablet 1,000 mg (COMPLETED) 1,000 mg, oral, Once, On Tue01/11/23 at 0645, For 1 dose, Pre-Op, Indications: pre-op med 0612 (Given - Provid er: Jennifer Escobar RN) ceFAZolin (ANCEF) 2,000 mg/20 mL in sterile water (premix) 2,000 mg (COMPLETED) 2,000 mg, intravenous, at 400 mL/hr, Administer over 3 Minutes, Once, On Tue01/11/23 at 0645, For 1 dose, Pre-Op, Indications: Prophylaxis, Surgical 0819 (Given - Provid er: Nikkie Ruth CRNA) gabapentin (NEURONTIN) capsule 300 mg (COMPLETED) 300 mg, oral, Once, On Tue01/11/23 at 0645, For 1 dose, Pre-Op, Indications: pre-op med 0612 (Given - Provid er: Jennifer Escobar RN) oxyCODONE (ROXICODONE) tablet 5 mg (COMPLETED) 5 mg, oral, Once, On Tue01/11/23 at 1130, For 1 dose, Phase I & Post-op Floor, Indications: Pain 1058 (Given - Provid er: Jennie Guadarrama RN) vancomycin 1,000 mg/200 mL in dextrose 5% (premix) 1,000 mg (COMPLETED) 1,000 mg, intravenous, Administer over 60 Minutes, Once, On Tue01/11/23 at 0645, For 1 dose, Pre-Op, Indications: Prophylaxis, Surgical 0757 (Given - Provid er: Nikkie Ruth CRNA) Continuous Medication Order 01/09/2023 01/10/2023 01/11/2023 Lactated Ringer's (LR) infusion 30 mL/hr, intravenous, Continuous, Starting on Tue01/11/23 at 0645, Pre-Op 0612 (New Bag - Prov ider: Jennifer Escobar RN)0727 (Rate/Dose Verify - Provider: Nikkie Ruth CRNA)0947 (Paused - Provider: Nikkie Ruth CRNA - Comment: Switch to gravity)0948 (Restarted - Provider: Nikkie Ruth CRNA)1624 (Due: Stopped) Lactated Ringer's (LR) infusion 125 mL/hr, intravenous, Continuous, Starting on Tue01/11/23 at 1100, Phase I, 1100 (Due) PRN Medication Order 01/09/2023 01/10/2023 01/11/2023 bupivacaine-EPINEPHrine (MARCAINE with EPI) 0.25 %-1:200,000 preservative free injection (CANCELED) As needed, Starting on Tue01/11/23 at 0942, Intra-Op 0942 (Given - Provid er: Katherine Anaya NP) HYDROmorphone (DILAUDID) injection 0.2 mg 0.2 mg, intravenous, Administer over 2 Minutes, Every 10 min PRN, 1st line for pain, Starting on Tue01/11/23 at 1018, Phase I, Notify PACU Anesthesiologist or Resident if total PACU dose reaches 2 mg and pain score 5/10 or more., Indications: Pain 1043 (Given - Provid er: Jennie Guadarrama, RN)1059 (Given - Provider: Jennie Guadarrama RN) naloxone (NARCAN) 0.4 mg/mL injection 0.04-0.4 mg 0.04-0.4 mg, intravenous, Once as needed, other, excessive sedation/respiratory depression, Starting on Tue01/11/23 at 1018, For 1 dose, Phase I, Dilute 0.4 mg with 9 mL NS (final concentration 0.04 mg/mL). For respiratory depression (respiratory rate less than 6), administer 0.4 mg IVP over 30 seconds. For excessive sedation administer 0.04 mg (1 mL) every 1 minute until desired level of alertness. For IV, administer over 30 seconds., Indications: Opioid Toxicity ondansetron (ZOFRAN) injection 4 mg 4 mg, intravenous, Administer over 2 Minutes, Once as needed, nausea, vomiting, Starting on Tue01/11/23 at 1018, For 1 dose, Phase I sodium chloride 0.9% irrigation (CANCELED) As needed, Starting on Tue01/11/23 at 0846, Intra-Op 0846 (Given - Provid er: Lewis Sunshine MD) thrombin-recombinant 5,000 unit topical solution (CANCELED) As needed, Starting on Tue01/11/23 at 0846, Intra-Op 0846 (Given - Provid er: Lewis Sunshine MD) vancomycin (VANCOCIN) solution (CANCELED) As needed, Starting on Tue01/11/23 at 0943, Intra-Op 0943 (Given - Provid er: Katherine Anaya NP) documented in this encounter Orders Medications Ordered That Casey ht Not Have Been Administered Count Last Ordered Date First Ordered Date Carrier Fluids for Secondary Infusion - 0.9% Sodium Chloride 1 01/11/2023 ceFAZolin (ANCEF) 2,000 mg/2 0 mL in sterile water (premix) 2,000 mg 1 01/11/2023 Lactated Ringer's (LR) infusion 1 naloxone (NARCAN) 0.4 mg/mL injection 0.04-0.4 mg 1 01/11/2023 ondansetron (ZOFRAN) injection 4 mg 1 01/11 sodium chloride 0.9% flush 0.5-20 mL 1 01/2023 vancomycin 1,000 mg/200 mL i n dextrose 5% (premix) 1,000 mg 1 01/11/2023 Diet Count Last Ordered Date First Orde red Date ADULT DISCHARGE DIET 1 01/11/2023 Nursing Count Last Ordered Date First Orde red Date DISCHARGE ACTIVITY 6 01/11/2023 DISCHARGE CALL PROVIDER 2 01/11/2023 DISCHARGE DRESSING 4 01/11/2023 DISCHARGE INSTRUCTIONS 1 01/11/2023 Discharge Count Last Ordered Date First Orde red Date DISCHARGE PATIENT 1 01/11/2023 documented in this encounter Care Teams Facilities Flight Check Pilot Relationship Specialty Start Date End Date Kacey Gonzalez MD PCP - General Family Medicine 04/07/21 06/08/23 Kristen Mancera MD Medical Oncologist/Evaluation Specialist Medical Oncology 11/21/20 Lewis Sunshine MD [address] [address] Surgeon Orthopedic Surgery 01/05/23 documented as of this encounter
--- OUTSIDE RECORDS SUMMARY | 2024-10-06 07:04 | XMS_ITS | Encounter Summary ---
Author Organization [facility] Address [address] [place] [address] Phone Care Team Providers Care Hospital Nursing Assistant Name Role Phone Kristen Mancera MD Unavailable Kacey Gonzalez MD Primary Care Provider [phone] Reason for Referral * Diagnostic Imaging (Routine) - Closed Specialty Diagnoses / Procedures Referred By Contac t Referred To Contact Radiology Diagnoses Lumbar back pain with radiculopathy affecting left lower extremity Procedures IR Transforaminal Epidural Injection Lumbar Sacral [place] [address] [place] [address] Phone: tel: fax: [address] [address] Referral ID Status Reason Start Date Expiration Date Visits Re quested Visits Authorized [id number] Closed 11/08/2022 12/08/2023 1 1 IR SERVICER Encounter Details Date Type Department Care Team (Late st Contact Info) Description 11/08/2022 Orders Only [facility] Orthopaedic Surgery [address] [facility] 1st [address] [place] [address] [place] [address] [place], [place] [id number] Lumbar back pain with radiculopathy affecting left lower extremity (Primary Dx) Social History Tobacco Use Types Packs/Day Years Used Date Smoking Tobacco: Never Smokeless Tobacco: Never PHQ-2 Answer Date Recorded PHQ-2 Total Score (If total score is 3 or more points, staff should administer the PHQ-9) 0 04/20/2022 Comments No Sex and Gender Information Value Date Recorded Sex Assigned at Not on file Legal Sex Female 10:19 PM REPAIR SERVICER Gender Identity Not on file Sexual Orientation Not on file documented as of this encounter Plan of Treatment Not on file documented as of this encounter Results * IR Transforaminal Epidural Injection Lumbar Sacral 1 Level Left (11/12/2022 11:25 AM REPAIR SERVICER) Narrative [facility] - 11/12/2022 11:25 AM REPAIR SERVICER The images from this study are not interpreted by Radiology. ??Please refer to the physician's procedure / OR operative note. Nelsy RODRIGUES IMG IR PROCEDURES Final Res ult [facility] documented in this encounter Visit Diagnoses Diagnosis Lumbar back pain with radiculopathy affecting left lower extremity- Primary Lumbar back pain with radiculopathy affecting left lower extremity- Primary documented in this encounter Care Teams Hospital Nursing Assistant Relationship Specialty Start Date End Date Kacey Gonzalez MD PCP - General Family Medicine 04/07/21 06/08/23 Kristen Mancera MD Medical Oncologist/Tube Machine Operator Medical Oncology 11/21/20 documented as of this encounter
--- OUTSIDE RECORDS SUMMARY | 2024-10-06 07:04 | XMS_ITS | Encounter Summary ---
Author Organization [facility] Address [address] [place] [address] Phone Care Team Providers Care Line Puller Name Role Phone Kristen Mancera MD Unavailable Kacey Gonzalez MD Primary Care Provider [phone] Encounter Details Date Type Department Care Team (Late st Contact Info) Description 01/03/2023 7:30 AM CDT Lab [facility] Oncology [address] [facility] 7th [place] [address] [place] [address] Neutropenia, unspecified type (HCC) Social [...] on file Legal Sex Female 10:19 PM BRICK CHIMNEY BUILDER Gender Identity Not on file Sexual Orientation Not on file documented as of this encounter Plan of Treatment Not on file documented as of this encounter Visit Diagnoses Diagnosis Neutropenia, unspecified type (HCC) documented in this encounter Orders Appointment Requests Count Last Ordered Date Fi rst Ordered Date ONCBCN LAB APPOINTMENT 1 01/03/2023 documented in this encounter Care Teams Line Puller Relationship Specialty Start Date End Date Kacey Gonzalez MD PCP - General Family Medicine 04/07/21 06/08/23 Kristen Mancera MD Medical Oncologist/Log Loader Helper Medical Oncology 11/21/20 documented as of this encounter
--- OUTSIDE RECORDS SUMMARY | 2024-10-06 07:04 | XMS_ITS | Encounter Summary ---
Author Organization [facility] Address [address] [place] [address] Phone Care Team Providers Care Prototyper Name Role Phone Kristen Mancera MD Unavailable Kacey Gonzalez MD Primary Care Provider [phone] Lewis Sunshine MD Unavailable [phone] Encounter Details Date Type Department Care Team (Late st Contact Info) Description 02/04/2023 Telephone [facility] Bone Marrow Transplant [address] [facility] 7th Floor, [place] [address] Kristen Mancera MD [address] DIV IM BONE MARROW TRANSPLANT[address] [place] [address] Social History Tobacco Use Types [...] on file Legal Sex Female 10:19 PM PACE ANALYST Gender Identity Not on file Sexual Orientation Not on file documented as of this encounter Miscellaneous Notes * Telephone Encounter - Janeth Niurkanavin Azar - 02/04/2023 9:59 AM CDT Patient calling back about moving appointment from today to February. She would like to schedule for 03/04/23 around the same time as was scheduled today would be best. documented in this encounter Plan of Treatment Not on file documented as of this encounter Visit Diagnoses Not on filedocumented in this encounter Care Teams Prototyper Relationship Specialty Start Date End Date Kacey Gonzalez MD PCP - General Family Medicine 04/07/21 06/08/23 Kristen Mancera MD Medical Oncologist/Landscape Engineer Medical Oncology 11/21/20 Lewis Sunshine MD [address] [address] Surgeon Orthopedic Surgery 01/05/23 documented as of this encounter
--- OUTSIDE RECORDS SUMMARY | 2024-10-06 07:04 | XMS_ITS | Encounter Summary ---
Author Organization [facility] Address [address] [place] [address] Phone Care Team Providers Care Automotive Parts Manager Name Role Phone Kristen Mancera MD Unavailable Kacey Gonzalez MD Primary Care Provider [phone] Encounter Details Date Type Department Care Team (Late st Contact Info) Description 11/08/2022 12:00 PM MANAGER OPERATIONS RESEARCH Telemedicine [facility] Orthopaedic Surgery [address] 2nd [address] [place] [address] [place] [address] [place] [address] Acute left-sided low back pain with left-sided sciatica (Primary Dx) Social History Tobacco Use Types Packs/Day Years Used Date Smoking Tobacco: Never Smokeless Tobacco: Never PHQ-2 Answer Date Recorded PHQ-2 Total Score (If total score is 3 or more points, staff should administer the PHQ-9) 0 04/20/2022 Comments No Sex and Gender Information Value Date Recorded Sex Assigned at Not on file Legal Sex Female 10:19 PM MANAGER OPERATIONS RESEARCH Gender Identity Not on file Sexual Orientation Not on file documented as of this encounter Patient Instructions * Patient Instructions* Nelsy Weber PA - 11/08/2022 12:00 PM MANAGER OPERATIONS RESEARCH Images from the original note were not included. Karen Medeiros 1970 1. Acute left-sided low back pain with left-sided sciatica RECOMMENDATIONS: Schedule STEVEN with Dr. Verma Please contact my office at [phone] with questions or if symptoms do not improve. If you have My Chart, you may e-mail routine questions. Please allow 1-2 business days If an urgent problem that requires immediate attention, please call [phone] during regular business hours, or the exchange after 4:30 at or . Nelsy Weber PA-C [facility] Department of Orthopaedic Surgery Working in collaborative practice with Richar Verma M.D. GER OPERATIONS RESEARCH documented in this encounter Progress Notes * Nelsy Weber PA - 11/08/2022 12:00 PM CST Images from the original note were not included. RETURN PATIENT TELEMEDICINE VISIT This was a telemedicine visit with Karen Medeiros alone which took place via telephone. During the visit, I was located at the office and the patient/parent was located at home in the state of [place].My total encounter time on 11/08/2022 was 10 minutes which was spent in the activities documented inthe note. This includes time spent prior to the visit and after the visit in direct care of the patient. This time does not include time spent in any separately reportable services.. The patient: has been informed that the visit may not be secure and acknowledged the information. The option of participating in a telephone or video visit during the [facility] [facility] emergencywas explained to them. After being given an opportunity to ask questions about and discuss this type of visit, they verbally consented to proceeding with the telephone/video visit and understand thatthis service replaces an office visit. INTERVAL HISTORY Today's telemedicine visit is to discuss test results and further treatment plan. REVIEW OF IMAGING/STUDIES MRI of the lumbar spine on 11/05/2022: Disc protrusion at L5-S1 encroaching on the descending left S1 nerve root. Multilevel mild degenerative changes of the lumbar spine IMPRESSION/DIAGNOSIS Acute L5-S1 disc protrusion with left lower extremity radiculopathy TREATMENT/PLAN Reviewed MRI results with Dr. Verma. Recommendation is STEVEN. Patient will continue with current medication of prednisone and gabapentin. Dr. Verma's team will reach out to patient to help scheduleprocedure. All questions answered. LILIA Corona [facility] Department of Orthopedic Surgery GER OPERATIONS RESEARCH documented in this encounter Plan of Treatment Not on file documented as of this encounter Visit Diagnoses Diagnosis Acute left-sided low back pain with left-sided sciatica- Primary documented in this encounter Care Teams Automotive Parts Manager Relationship Specialty Start Date End Date Kacey Gonzalez MD PCP - General Family Medicine 04/07/21 06/08/23 Kristen Mancera MD Medical Oncologist/Ncqa Specialist Medical Oncology 11/21/20 documented as of this encounter
--- OUTSIDE RECORDS SUMMARY | 2024-10-06 07:04 | XMS_ITS | Encounter Summary ---
Author Organization [facility] Address [address] [place] [address] Phone Care Team Providers Care Wood Heel Finisher Name Role Phone Kristen Mancera MD Unavailable Kacey Gonzalez MD Primary Care Provider [phone] Encounter Details Date Type Department Care Team (Late st Contact Info) Description 11/19/2022 Telephone [facility] Orthopaedic Surgery [address] [place] [address] [place] [address] [place] [address] Social History Tobacco Use Types Packs/Day Years Used Date Smoking Tobacco: Never Smokeless Tobacco: Never PHQ-2 Answer Date Recorded PHQ-2 Total Score (If total score is 3 or more points, staff should administer the PHQ-9) 0 04/20/2022 Comments No Sex and Gender Information Value Date Recorded Sex Assigned at Not on file Legal Sex Female 10:19 PM CLOTH LAYER Gender Identity Not on file Sexual Orientation Not on file documented as of this encounter Miscellaneous Notes * Telephone Encounter - Joanne Burnham RMA - 11/22/2022 8:17 AM CLOTH LAYER Karen reports that she has noticed some difference with the injection however, know has new symptoms in her foot that she didn't realize beore - numbness, tingling. She reports that as long as she doesn't do anything the pain is management however, any movement including ADL produces severe pain.We review Dr. Verma's recommendations, she would like to move forward with a spine surgical consult. H LAYER * Telephone Encounter - Richar Verma MD - 11/19/2022 7:02 PM CLOTH LAYER She may still have some additional improvement since it has only been one week, but also possible she may not experienced additional pain relief from that injection. If pain relief was minimal options would be to repeat the injection and it is possible she would see some additional benefit from that. Otherwise if pain remains reasonably severe and activity is limited she could see a spine surgeonto discuss potential microdiskectomy. H LAYER * Telephone Encounter - Claudia Mccullough CPhT - 11/19/2022 11:43 AM CLOTH LAYER Pt patient is requesting a call for the next steps.Pt is a little better. But, there are thing she still can not do. Pt wanting to know should we be scheduling next inj or what. Pain is 8-9 Pt is noticing numbness and tingling - right leg to toes. H LAYER H LAYER documented in this encounter Plan of Treatment Not on file documented as of this encounter Visit Diagnoses Not on filedocumented in this encounter Care Teams Wood Heel Finisher Relationship Specialty Start Date End Date Kacey Gonzalez MD PCP - General Family Medicine 04/07/21 06/08/23 Kristen Mancera MD Medical Oncologist/Cotton Weigher Medical Oncology 11/21/20 documented as of this encounter
--- OUTSIDE RECORDS SUMMARY | 2024-10-06 07:04 | XMS_ITS | Encounter Summary ---
Author Organization [facility] Address [address] [place] [address] Phone Care Team Providers Care Lap Cutter Truer Operator Name Role Phone Kristen Mancera MD Unavailable Kacey Gonzalez MD Primary Care Provider [phone] Encounter Details Date Type Department Care Team (Late st Contact Info) Description 07/16/2022 10:15 AM CDT Lab [facility] Oncology [address] [facility] 7th [place] [address] [place] [address] Homozygous MTHFR mutation [id number]; Neutropenia, unspecified type (HCC) Social History Tobacco Use Types Packs/Day Years Used Date Smoking Tobacco: Never Smokeless Tobacco: Never PHQ-2 Answer Date Recorded PHQ-2 Total Score (If total score is 3 or more points, staff should administer the PHQ-9) 0 04/20/2022 Comments No Sex and Gender Information Value Date Recorded Sex Assigned at Not on file Legal Sex Female 10:19 PM SEPHORA PRODUCT CONSULTANT Gender Identity Not on file Sexual Orientation Not on file documented as of this encounter Plan of Treatment Not on file documented as of this encounter Visit Diagnoses Diagnosis Homozygous MTHFR mutation C677T Neutropenia, unspecified type (HCC) documented in this encounter Orders Appointment Requests Count Last Ordered Date Fi rst Ordered Date ONCBCN LAB APPOINTMENT 1 07/16/2022 documented in this encounter Care Teams Lap Cutter Truer Operator Relationship Specialty Start Date End Date Kacey Gonzalez MD PCP - General Family Medicine 04/07/21 06/08/23 Kristen Mancera MD Medical Oncologist/Pack Mule Worker Medical Oncology 11/21/20 documented as of this encounter
--- OUTSIDE RECORDS SUMMARY | 2024-10-06 07:04 | XMS_ITS | Encounter Summary ---
Author Organization [facility] Address [address] [place] [address] Care Team Providers Care Transmitter Engineer Name Role Phone Kristen Mancera MD Unavailable Kacey Gonzalez MD Primary Care Provider [phone] Encounter Details Date Type Department Care Team (Latest Contact Info) Description 01/04/2023 7:28 AM CDT - 01/04/2023 11:59 PM CDT Hospital Encounter [facility] [address] [place] [phone] Discharge Disposition: Discharge to home or self [...] on file Legal Sex Female 10:19 PM THEATRICAL SCENIC DESIGNER Gender Identity Not on file Sexual Orientation Not on file documented as of this encounter Medications at Time of Discharge levonorgestrel (MIRENA) IUDIndications:Abn ormal Uterine Bleeding, Contraception 1 each by intrauterine route once 02/22/2014 acetaminophen (TYLENOL) 500 mg tabletIndications: Pain Take [...] mouth nightly 30 capsule 11/01/2022 01/06/20 23 methocarbamoL (ROBAXIN) 500 mg tabletIndications: Muscle Spasm Take 1 tablet (500 mg total) by mouth 4 (four) times a day 42 tablet 01/11/2023 02/22/20 23 mupirocin (BACTROBAN) 2 % ointment Apply a small amount to the inside of each nostril using a clean Q-tip for each nostril twice a day for 5 days prior to surgery. 22 g 01/06/2023 01/12/20 23 oxyCODONE (ROXICODONE) 5 mg immediate release tabletIndications: Pain Take 1 tablet (5 mg total) by mouth every 4 (four) hours as needed for pain (as needed for breakthrough pain) 40 tablet 01/11/2023 02/22/20 23 senna-docusate (Senna with Docusate Sodium) 8.6-50 mgIndications:cons tipation Take 1 tablet by mouth 2 (two) times a day 60 tablet 01/11/2023 02/22/20 23 triamcinolone (KENALOG) 0.1 % creamIndications:T ransient [...] on filedocumented in this encounter Care Teams Transmitter Engineer Relationship Specialty Start Date End Date Kacey Gonzalez MD PCP - General Family Medicine 04/07/21 06/08/23 Kristen Mancera MD Medical Oncologist/Behavior Interventionist Medical Oncology 11/21/20 documented as of this encounter
--- OUTSIDE RECORDS SUMMARY | 2024-10-06 07:04 | XMS_ITS | Encounter Summary ---
Author Organization [facility] Address [address] [place] [address] Care Team Providers Care Refinery Operator Name Role Phone Kristen Mancera MD Unavailable Kacey Gonzalez MD Primary Care Provider [phone] Lewis Sunshine MD Unavailable [phone] Reason for Visit * Auth/Cert (Routine) Specialty Diagnoses / Procedures Referred By Contac t Referred To Contact Diagnoses Lumbar disc herniation with radiculopathy Lumbar disc herniation with radiculopathy [M51.16] Procedures [place] ARTHRODESIS POSTERIOR INTERBODY 1 NTRSPC LUMBAR DISCECTOMY - LUMBAR- LEFT L5-S1 Discectomy Posterior Lumbar Spine Referral ID Status Reason Start Date Expiration Date Visits Re quested Visits Authorized [id number] 1 1 Encounter Details Date Type Department Care Team (Latest Contact Info) Description 01/11/2023 5:54 AM CDT - 01/11/2023 12:08 PM CDT Hospital Encounter [facility] Operating Room [address] [place] [address] Lewis Sunshine MD [address] [facility] [place] [address] Discharge Disposition: Discharge to home or self [...] on file Legal Sex Female 10:19 PM VOLUNTEER SERVICES SPECIALIST Gender Identity Not on file Sexual Orientation Not on file documented as of this encounter Last Filed Vital Signs Vital Sign Reading Time Taken Comments Blood Pressure 103/75 01/11/2023 11:30 AM CDT Pulse 72 01/11/2023 11:30 AM CDT Temperature 36.1 ??C (97 ??F) 01/11/2023 12:00 PM CDT Respiratory Rate 16 01/11/2023 11:30 AM CDT Oxygen Saturation 95% 01/11/2023 11:30 AM CDT Inhaled Oxygen Concentration - - Weight - - Height - - Body Mass Index - - documented in this encounter Discharge Instructions * Attachments The following attachments cannot be sent through Care Everywhere. * [facility] TO EXCELLENT CARE AFTER SURGERY * Skin Adhesive Care (Discharge Care) ([place] Verdean) documented in this encounter Medications at Time of Discharge levonorgestrel (MIRENA) IUDIndications:Abn ormal Uterine Bleeding, Contraception 1 each by intrauterine route once 02/22/2014 multivitamin capsuleIndications :Vitamin Deficiency Prevention Take 1 capsule by mouth information systems manager before breakfast acetaminophen (TYLENOL) 500 mg [...] extension 5/5 5/5 Wrist flexion 5/5 5/5 Geological Scout 5/5 5/5 Interosseous of hand 5/5 5/5 [...] AM CDT Source Note - Angeles Meza, EMPLOYMENT CONSULTANT - 01/05/2023 9:41 AM CDT Images from the original note were not included. [facility] Preoperative Assessment and Planning Preoperative Evaluation Record Evaluation type/location: [facility] Planned procedure site: [facility] ([facility] 2[facility]3/5/[facility]) Date: 01/05/23 Anesthesia Evaluation Karen Medeiros is [...] 200 mg tab/cap Past Week -- -- Inés Correa MD levonorgestrel (MIRENA) IUD () More than a month 02/22/14 11/01/22 Inés Correa MD multivitamin capsule 01/05/2023 -- -- Inés [...] Operative Report Surgeon Lewis Sunshine MD, MS Rn Wound(s) Mainor Faria MD Anesthesia General endotracheal. Preoperative [...] visualized the disc herniation. I used a Easley 4 to widen the obvioushernia defect and [...] on Discharge Stable. Lewis Sunshine M.D., M.S. Marine Equipment Preservation Inspector Orthopaedic and Neurological Surgery [facility] [employer] [facility] [place], [place] Operative Report dictated by Lewis Sunshine MD, MS. on 01/11/23 using Fluency Direct. Asset Protection Specialist variances may occur. documented in this encounter [...] Given 01/11/2023 6:12 AM CDT 1,000 mg gabapentin (NEURONTIN) capsule 300 mg 300 mg, [...] Given 01/11/2023 10:58 AM CDT 5 mg documented in this encounter Discontinued Medications Medication [...] mg (COMPLETED) 1,000 mg, oral, Once, On 01/11/23 at 0645, For 1 dose, Pre-Op, Indications: pre-op med 0612 (Given - Provid er: Jennifer Escobar RN) ceFAZolin (ANCEF) 2,000 mg/20 mL in sterile water (premix) 2,000 mg (COMPLETED) 2,000 mg, intravenous, at 400 mL/hr, Administer over 3 Minutes, Once, On 01/11/23 at 0645, For 1 dose, Pre-Op, Indications: Prophylaxis, Surgical 0819 (Given - Provid er: Nikkie Ruth CRNA) gabapentin (NEURONTIN) capsule 300 mg (COMPLETED) 300 mg, oral, Once, On e 01/11/23 at 0645, For 1 dose, Pre-Op, Indications: pre-op med 0612 (Given - Provid er: Jennifer Escobar RN) oxyCODONE (ROXICODONE) tablet 5 mg (COMPLETED) 5 mg, oral, Once, On e 01/11/23 at 1130, For 1 dose, Phase I & Post-op Floor, Indications: Pain 1058 (Given - Provid er: Jennie Guadarrama RN) vancomycin 1,000 mg/200 mL in dextrose 5% (premix) 1,000 mg (COMPLETED) 1,000 mg, intravenous, Administer over 60 Minutes, Once, On e 01/11/23 at 0645, For 1 dose, Pre-Op, Indications: Prophylaxis, Surgical 0757 (Given - Provid er: Nikkie Ruth CRNA) Continuous Medication Order 01/09/2023 01/10/2023 01/11/2023 Lactated Ringer's (LR) infusion 30 mL/hr, intravenous, Continuous, Starting on 01/11/23 at 0645, Pre-Op 0612 (New Bag - [...] Pain 1043 (Given - Provid er: Jennie Guadarrama RN)1059 (Given - Provider: Jennie Guadarrama RN) [...] Count Last Ordered Date First Ordered Date bupivacaine-EPINEPHrine (RICKY NGUYỄN with EPI) 0.25 %-1:200,000 preservative free injection 1 01/11/2023 Carrier Fluids for Secondary Infusion - 0.9% Sodium Chloride 1 01/11/2023 ceFAZolin (ANCEF) 2,000 mg/2 0 mL in sterile water (premix) 2,000 mg 1 01/11/2023 Lactated Ringer's (LR) infusion 1 3 naloxone (NARCAN) 0.4 mg/mL injection 0.04-0.4 mg 1 01/11/2023 ondansetron (ZOFRAN) injection 4 mg 1 01/11 sodium chloride 0.9% flush 0.5-20 mL 1 01/2023 sodium chloride 0.9% irrigation 1 3 thrombin-recombinant 5,000 u nit topical solution 1 01/11/2023 vancomycin (VANCOCIN) solution 1 01/11/2023 vancomycin 1,000 mg/200 mL i n dextrose [...] 01/11/2023 documented in this encounter Care Teams Refinery Operator Relationship Specialty Start Date End Date Kacey Gonzalez MD PCP - General Family Medicine 04/07/21 06/08/23 Kristen Mancera MD Medical Oncologist/Cow Rider Medical Oncology 11/21/20 Lewis Sunshine MD [address] [address] Surgeon Orthopedic Surgery 01/05/23 documented as of this encounter
--- OUTSIDE RECORDS SUMMARY | 2024-10-06 07:04 | XMS_ITS | Encounter Summary ---
Author Organization [facility] Address [address] [place] [address] Phone Care Team Providers Care Creative Resource Manager Name Role Phone Kristen Mancera MD Unavailable Kacey Gonzalez MD Primary Care Provider [phone] Lewis Sunshine MD Unavailable [phone] Encounter Details Date Type Department Care Team (Late st Contact Info) Description 03/04/2023 11:20 AM CDT Office Visit [facility] Bone Marrow Transplant [address] 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 Gender Identity Not on file Sexual Orientation Not on file documented as of this encounter Last Filed Vital Signs Vital Sign Reading Time Taken Comments Blood Pressure 123/86 03/04/2023 10:52 AM CDT Pulse 87 03/04/2023 10:52 AM CDT Temperature 36.6 ??C (97.9 ??F) 03/04/2023 10:52 AM C DT forehead Respiratory Rate 17 03/04/2023 10:52 AM CDT Oxygen Saturation 100% 03/04/2023 10:52 AM CDT Inhaled Oxygen Concentration - - Weight 57 kg (125 lb 9.6 oz) 03/04/2023 10:52 AM CDT Height - - Body Mass Index 22.97 01/05/2023 4:20 PM CDT documented in this encounter Progress Notes * Lolita Barrera NP - 03/04/2023 11:20 AM CDT Images from the original note were not included. BMT Progress Note Oncology History No history exists. Active Treatment & Therapy Plans for Karen Medeiros Melissa A does not have any active plans of the following types: Oncology Chemotherapy Treatment, Oncology Treatment (2), Oncology Treatment (3), Oncology Supportive Care, Specialty InfusionTreatment, Blood Products, BMT, Hematology Subjective Interval History Ms. Medeiros is 52 y/o woman, here today for scheduled follow up. She has a history of neutropenia with homozygote mutation MTHFR. Genopt[employer] panel is negative. She is doing very well and has no complaints. She had back surgery in January and is healing well from this. She is glad she had the surgery. She has no fevers or signs of infections. No Known Allergies Outpatient Encounter Medications as of 03/04/2023: ALPRAZolam (XANAX) 0.25 mg tablet, Take 1 tablet (0.25 mg total) by mouth 2 (two) times a day (Patient taking differently: Take 1 tablet (0.25 mg total) by mouth 2 (two) times a day), Disp: 30 tablet, Rfl: 0 multivitamin capsule, Take 1 capsule by mouth cro before breakfast, Disp: , Rfl: zolpidem (AMBIEN) 10 mg tablet, TAKE 1 TABLET BY MOUTH EVERY DAY AT NIGHT (Patient taking differently: Take 1 tablet (10 mg total) by mouth nightly as needed), Disp: 30 tablet, Rfl: 5 levonorgestrel (MIRENA) IUD, 1 each by intrauterine route once, Disp: , Rfl: [DISCONTINUED] acetaminophen (TYLENOL) 500 mg tablet, Take 2 tablets (1,000 mg total) by mouth every 8 (eight) hours, Disp: 60 tablet, Rfl: 0 [DISCONTINUED] methocarbamoL (ROBAXIN) 500 mg tablet, Take 1 tablet (500 mg total) by mouth 4 (four) times a day, Disp: 42 tablet, Rfl: 0 [DISCONTINUED] oxyCODONE (ROXICODONE) 5 mg immediate release tablet, Take 1 tablet (5 mg total) by mouth every 4 (four) hours as needed for pain (as needed for breakthrough pain), Disp: 40 tablet, Rfl: 0 [DISCONTINUED] senna-docusate (Senna with Docusate Sodium) 8.6-50 mg, Take 1 tablet by mouth 2 (two) times a day, Disp: 60 tablet, Rfl: 0 Review of Systems Review of systems per HPI and otherwise all systems are negative Performance Status: ECOG 0 Objective Vitals: BP: 123/86 Temp: 36.6 ??C (97.9 ??F) (forehead) Temp src: Transdermal Pulse: 87 Resp: 17 SpO2: 100 % Weight: 57 kg (125 lb 9.6 oz) Physical exam: General: Well appearing, in [...] Gait steady. Lab/Radiology/Diagnostic Review: Hematology Lab History Latest Ref Rng & Units 07/16/2022 10:40 01/03/2023 07:38 01/05/2023 17:09 03/04/2023 10:47 Labs - Hematology WBC 3.8 - 9.8 K/cumm 2.5 4.1 4.1 4.4 Total Hb, POC 12.1 - 15.1 g/dL 13.1 13.6 12.9 13.1 Hct 36.1 - 44.3 % 39.0 40.5 38.9 39.4 Plt 140 - 440 K/cumm 224 302 289 272 Neutrophil abs 1.8 - 6.6 K/cumm 0.6 1.6 1.2 1.9 Lymphocytes, abs 1.2 - 3.3 K/cumm 1.0 1.6 1.9 1.6 Chem/LFT Lab History Latest Ref Rng & Units 07/16/2022 10:40 01/05/2023 17:09 Labs-Chem/LFT Sodium 135 - 145 mmol/L 139 137 Creatinine 0.60 - 1.10 mg/dL 0.61 0.75 Bilirubin, total 0.1 - 1.2 mg/dL 0.5 0.6 AST 10 - 45 Units/L 17 23 ALT 7 - 45 Units/L 13 14 CrCl- Actual Body Weight (Cockcroft-Gault) 93.4 78.5 Assessment/Plan Ms. Medeiros is 52 y/o woman with Hx of Neutropenia with MTHFR mutation. Her ANC is 1.9 today, counts are stable. She has no recent infections. She is healing well from back surgery in January. We will continue to monitor. Follow up. She will return to our clinic in six months. She knows to call us with any questions or concerns. documented in this encounter Plan of Treatment Scheduled Orders Name Type Priority Associated Diagnoses Orde r Schedule CBC with auto differential Lab Routine Neutropenia, unspecified type (HCC) Expected: 03/02/2024, Expires: 02/22/2025 Comprehensive metabolic panel Lab Routine Neutropenia, unspecified type (HCC) Expected: 03/02/2024, Expires: 02/22/2025 Lactate dehydrogenase (LD) Lab Routine Neutropenia, unspecified type (HCC) Expected: 03/02/2024, Expires: 02/22/2025 documented as of this encounter Visit Diagnoses Diagnosis Neutropenia, unspecified type (HCC)- Primary documented in this encounter Orders Appointment Requests Count Last Ordered Date Fi rst Ordered Date ONCBCN CLINIC APPOINTMENT REQUEST 2 023 ONCBCN LAB APPOINTMENT 1 03/04/2023 documented in this encounter Care Teams Creative Resource Manager Relationship Specialty Start Date End Date Kacey Gonzalez MD PCP - General Family Medicine 04/07/21 06/08/23 Kristen Mancera MD Medical Oncologist/Breeder Hen Service Technician Medical Oncology 11/21/20 Lewis Sunshine MD [address] [address] Surgeon Orthopedic Surgery 01/05/23 documented as of this encounter
--- OUTSIDE RECORDS SUMMARY | 2024-10-06 07:04 | XMS_ITS | Encounter Summary ---
Author Organization [facility] Healthcare Address [address] [place] [address] Care Team Providers Care Fish Bait Picker Name Role Phone Kristen Mancera MD Unavailable Kacey Gonzalez MD Primary Care Provider [phone] Lewis Sunshine MD Unavailable [phone] Reason for Visit * Auth/Cert (Routine) Specialty Diagnoses / Procedures Referred By Contac t Referred To Contact Diagnoses Lumbar disc herniation with radiculopathy Lumbar disc herniation with radiculopathy [M51.16] Procedures VT ARTHRODESIS POSTERIOR INTERBODY 1 NTRSPC LUMBAR DISCECTOMY - LUMBAR- LEFT L5-S1 Discectomy Posterior Lumbar Spine Referral ID Status Reason Start Date Expiration Date Visits Re quested Visits Authorized [id number] 1 1 Encounter Details Date Type Department Care Team (Late st Contact Info) Description 01/11/2023 7:27 AM CDT Anesthesia Event [facility] Operating Room [address] [place] [address] Micheal Azar MD PhD [address] [place] [address] Iris Kirk, DERICK [address] [facility] [id number] [place] [address] Anesthesia Record Procedure Summary Procedure Name Responsible Anesthesiologist Anesthesia Start Time Anesthesia Stop Time DISCECTOMY - LUMBAR- LEFT L5-S1 Discectomy Posterior Lumbar Spine (Spine Lumbar) Michael Azar MD PhD 01/11/23 0727 01/11/23 1019 Events Date Time Event Comment 01/11/2023 0600 In Preop 0727 An Start 0731 In Room 0732 An Start Data 0743 An Induction The patient was reevaluated immediately before moderate or deep sedation use and before anesthesia induction. 0746 An Intubation 0753 Anesthesia Ready 0803 Patient Positioned Prone 0828 Proc Start 0829 Incision Start 0957 Proc Fin 1000 An Extubation 1004 an stop data 1005 Out of Room 1019 Handoff to RN I completed my handoff to the receiving nurse during which we: 1. Patient identified 2. Responsible provider identified 3. Pertinent medical history reviewed 4. Procedure type and surgical course discussed 5. Intraoperative anesthetic management and any significant issues discussed 6. Expectations and concerns for postop period discussed 7. Questions solicited from receiving nurse 8. Patient disposition at the time of handoff: PACU 1019 An Stop Meds Name Total midazolam PF 1 mg lidocaine (cardiac) syringe 2 % 80 mg propofol 200 mg fentaNYL 100 mcg HYDROmorphone 2 mg/mL 0.4 mg succinylcholine 80 mg rocuronium 60 mg phenylephrine 100 mcg/mL 900 mcg ePHEDrine 15 mg ondansetron PF (ZOFRAN) 2 mg/mL injectio n 4 mg glycopyrrolate 0.4 mg neostigmine injection 1 mg/mL 2 mg ceFAZolin (ANCEF) 2,000 mg/20 mL in ster ile water (premix) 2,000 mg 2,000 mg vancomycin 1,000 mg/200 mL in dextrose 5 % (premix) 1,000 mg 1,000 mg phenylephrine infusion (100 mcg/mL) 2.09 mg calcium chloride 1 g dexAMETHasone 4 mg/mL 4 mg Lactated Ringer's (LR) infusion 800 mL LR 100 mL * Agents Name O2% N2O O2 Air Sevoflurane Inspired Sevoflurane * Blood No blood administrations on file. Lines, Drains, and Airways Type Details Placement Removal Peripheral IV Placement Date: 01/11/23; Placement Time: 0618; Catheter Size: 20 G; Orientation: Anterior, Left; Location: Wrist; Site Prep: Chlorhexidine; Inserted by: yoni louie rn; Insertion Attempts: 1; Patient Tolerance: Tolerated well; Removal Date: 01/11/23; Removal Time: 1200; Removal Reason: Discharge 01/11/23 0618 by Jennifer Escobar RN 01/11/23 1200 by Jennie Guadarrama RN ETT Placement Date: 01/11/23; Placement Time: 0833 (created via procedure documentation); Mask Ventilation: 0; Technique: Video laryngoscopy; Type: ETT - single; Single Lumen Tube Size: 7 mm; Cuffed: Yes; Laryngoscope: Bibi; Blade Size: 3; Location: Oral; Grade View: Grade I; Insertion Attempts: 1; Placement Verification: Auscultation, Capnometry; Removal Date: 01/11/23; Removal Time: 1000 01/11/23 0833 by Nikkie Ruth CRNA 01/11/23 1000 by Nikkie Ruth CRNA RETIRED Surgical Site 01/11/23; 0846; Ba ck; lower back; 09/11/24 (Retired LDA, Removed/Completed by [employer] with LDA Utility); 1213 (Retired LDA, Removed/Completed by [employer] with LDA Utility) 01/11/23 0846 by Jayy Vila RN 09/11/24 1213 by Discharge Provider, Automatic Peripheral IV Placement Date: 01/11/23; Placement Time: 08 (created via procedure documentation); Catheter Size: 18 G; Orientation: Right; Location: Hand; Site Prep: Alcohol; Insertion Attempts: 1; Removal Date: 01/11/23; Removal Time: 1200; Removal Reason: Discharge 01/11/23 0851 by Nikkie Ruth CRNA 01/11/23 1200 by Jennie Guadarrama RN documented in this encounter Social History Tobacco [...] on file 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 Gender Identity Not on file Sexual Orientation Not on file documented as of this encounter OR Notes * Anesthesia Postprocedure Evaluation - Brittani Álvarez MD PhD - 01/11/2023 11:25 AM CDT Patient: Karen Medeiros Procedure Summary Date: 01/11/23 Room / Location: [facility] OR POD 5 ROOM 233 / [facility] OR POD 5 Anesthesia Start: 726 Anesthesia Stop: 1018 Procedure: DISCECTOMY - LUMBAR- LEFT L5-S1 Discectomy Posterior Lumbar Spine (Spine Lumbar) Diagnosis: Lumbar disc herniation with radiculopathy (Lumbar disc herniation with radiculopathy [M51.16]) Surgeons: Lewis Sunshine MD Responsible Provider: Michael Azar MD PhD Anesthesia Type: general ASA Status: 2 Anesthesia Type: general Last vitals BP 128/60 Pulse 85 Temp 36.1 ??C (97 ??F) (Temporal) Resp 19 SpO2 98% Anesthesia Post Evaluation Patient location during evaluation: PACU Patient participation: complete - patient participated Level of consciousness: fully awake Pain score: 2 Pain management: satisfactory to patient Airway patency: adequate Evidence of recall: no Cardiovascular status: acceptable and hemodynamically stable Respiratory status: acceptable and room air Hydration status: acceptable Pt is: normothermic Nausea/Vomiting status: none Comments: D/C to home No notable events documented. * Anesthesia Procedure Notes - Nikkie Ruth CRNA - 01/11/2023 8:50 AM CDTAssociated Order(s): Peripheral IV Catheter Peripheral IV Catheter Patient location: OR Staff: Placed by: CHAIR CAR ATTENDANT: Nikkie Ruth CRNA Preprocedure prep: Prep solution: alcohol PPE: gloves and provider hat/mask PIV line: Laterality: left Site: hand Catheter size: 18 g Technique: anatomical landmarks and direct visualization Procedure details: good blood return and occlusive dressing applied Number of attempts: 1 Assessment: Events: patient tolerated procedure well with no complications * Anesthesia Procedure Notes - Nikkie Ruth CRNA - 01/11/2023 8:32 AM CDTAssociated Order(s): Airway Airway Patient location: OR Urgency: elective Indications for airway management: anesthesia Difficult airway: no Staff: Supervising provider: Michael Azar MD PhD Placed by: CHAIR CAR ATTENDANT: Nikkie Ruth CRNA Emergent airway documentation: Risks and benefits discussed: yes Consent obtained: yes Consent given by: patient Airway prep: Preoxygenated: yes Patient position: sniffing Mask difficulty assessment: 0 - not attempted Spontaneous ventilation during airway: absent Sedation level during airway: GA Final airway details: Final airway type: endotracheal airway Tube type: ETT ETT size: 7.0 mm Cuffed: yes Technique used for successful ETT placement: video laryngoscopy Devices/Methods used in placement: stylet Insertion site: oral Blade type: Bibi Video blade type: Landon Blade size: 3 Cormack-Lehane (direct): grade I - full view of glottis Cormack-Lehane (video): grade I - full view of glottis Cuff volume: 8 mL Cuff inflated with: air ETT to lips: 22 cm Placement verified by: auscultation and CO2 detection Airway secured with: silk tape Number of attempts: 1 * Anesthesia Preprocedure Evaluation - Michael Azar MD PhD - 01/11/2023 6:57 AM CDT Images from the original note were not included. [facility] Preoperative Evaluation Record Evaluation type/location: CPAP [facility] Planned procedure site: [facility] (Pods 2/3/5/[facility]) Date: 01/05/23 Anesthesia Evaluation Karen Medeiros [...] Total Score: 1 Tejas index score: 100 DOS Physical Exam Attestation: I endorse the findings of the anesthesia pre-evaluation assessment dated: 01/05/2023. Airway Exam: Mallampati: II Cervical ROM: FROM TM distance: 3.5 Cardiovascular Exam: Rate: regular Rhythm: regular Negative for Murmur Negative for peripheral edema Pulmonary Exam: LCTA EENT Exam: trachea midline Dental Exam: Appears intact Skin Exam: Skin is warm. Capillary refill is < 3 seconds. Turgor is normal. Abdominal Exam: Abdomen is soft. Bowel sounds are present. Current state: Patient's current state is cooperative and anxious. Additional comments: Her urine hcg Is neg today. Anesthesia Plan ASA 2 My patient is approved for the Anesthesia Controlled Medication protocol when under care of a CHAIR CAR ATTENDANT Planned anesthesia: General Team communication plan: oral ET tube Induction: Induction: intravenous. Postoperative Plan: Postoperative administration opioids intended. No postoperative mechanical ventilation intended. Patient's planned disposition post procedure is Floor. Planned trial extubation. Informed Consent: Discussed plan with CHAIR CAR ATTENDANT. Anesthesia plan and risks discussed with patient, spouse and mother. Plan and Consent Comments: Risks and benefits of GETA d/w patient and family by CHAIR CAR ATTENDANT and myself, including rare complications but not limited to, PONV, pneumonia, bleeding, recalls, blindness, pneumonia, DE, PE/VAE, CVA, paralyzed, left intubated to ICU, etc. They understood and wish to proceed with GETA. Questions answered. Plans: 1. Multimodal pain control. 2. Intubate the patient in her neutral position of neck/head with McGraph or C- MAC as needed. 3. Keep the patient normotensive, euvolemic, normocarbic and normothermic. 4. Maintain the patient's baseline MAP during surgery/prone positioning with crystalloid, colloid, pressors (phenylephrine, ephedrine, CaCl2), Or blood as needed, etc. --T&S --Check eyeballs every 20-30min. 5. Closely monitoring the patient's ETCO2, etc. 6. PONV prophylaxis. Consent and Attending signature: I and/or my designee have discussed the anesthesia plan, benefits, possible alternatives, parental presence at time of induction (if indicated), and clinically relevant risks that may include dental injury, unintentional awareness, and/or other complications. The patient and/or parent/legal guardian understand, and agree to proceed. All questions answered. documented in this encounter Plan of Treatment Not on file documented as of this encounter Procedures Procedure Name Priority Date/Time Associated Diagnosis Comments VT AN PROCEDURE PLACEHOLDER Routine 01/11/2023 8:50 AM CDT VT AN PROCEDURE PLACEHOLDER Routine 01/11/2023 8:32 AM CDT VT AN ELECTIVE ENDOTRACHEAL AIRWAY Routine 01/11/2023 8:32 AM CDT documented in this encounter Results * VT AN PROCEDURE PLACEHOLDER (01/11/2023 8:50 AM CDT) Narrative Nikkie Ruth CRNA - 01/11/2023 8:50 AM CDT Nikkie Ruth CRNA ? 01/11/2023 ??8:51 AM Peripheral IV Catheter Patient location: OR Staff: Placed by: CHAIR CAR ATTENDANT: Nikkie Ruth CRNA Preprocedure prep: Prep solution: alcohol PPE: gloves and provider hat/mask PIV line: Laterality: left Site: hand Catheter size: 18 g Technique: anatomical landmarks and direct visualization Procedure details: good blood return and occlusive dressing applied Number of attempts: 1 Assessment: Events: patient tolerated procedure well with no complications us Michael Azar MD PhD ANESTHESIA ORDERABLES Final Result * VT AN ELECTIVE ENDOTRACHEAL AIRWAY, VT AN PROCEDURE PLACEHOLDER (01/11/2023 8:32 AM CDT) Narrative Nikkie Ruth CRNA - 01/11/2023 8:32 AM CDT Nikkie Ruth CRNA ? 01/11/2023 ??8:33 AM Airway Patient location: OR Urgency: elective Indications for airway management: anesthesia Difficult airway: no Staff: Supervising provider: Michael Azar MD PhD Placed by: CHAIR CAR ATTENDANT: Nikkie Ruth CRNA Emergent airway documentation: Risks and benefits discussed: yes Consent obtained: yes Consent given by: patient Airway prep: Preoxygenated: yes Patient position: sniffing Mask difficulty assessment: 0 - not attempted Spontaneous ventilation during airway: absent Sedation level during airway: GA Final airway details: Final airway type: endotracheal airway Tube type: ETT ETT size: 7.0 mm Cuffed: yes Technique used for successful ETT placement: video laryngoscopy Devices/Methods used in placement: stylet Insertion site: oral Blade type: Bibi Video blade type: Landon Blade size: 3 Cormack-Lehane (direct): grade I - full view of glottis Cormack-Lehane (video): grade I - full view of glottis Cuff volume: 8 mL Cuff inflated with: air ETT to lips: 22 cm Placement verified by: auscultation and CO2 detection Airway secured with: silk tape Number of attempts: 1 us Michael Azar MD PhD ANESTHESIA ORDERABLES Final Result documented in this encounter Visit Diagnoses Not on filedocumented in this encounter Administered Medications Inactive Administered Medications - up to 3 most recent administrations Medication Order MAR Action Action Date Dose Rate Site calcium chloride IV syringe intravenous, As needed, Starting on Tue01/11/23 at 0902, Anesthesia Intra-op Given 01/11/2023 9:02 AM CDT 1 g ceFAZolin (ANCEF) 2,000 mg/20 mL in sterile water (premix) 2,000 mg 2,000 mg, intravenous, at 400 mL/hr, Administer over 3 Minutes, Once, On Tue01/11/23 at 0645, For 1 dose, Pre-Op, Indications: Prophylaxis, SurgicalIndications:Prophylaxis, Surgical Given 01/11/2023 8:19 AM CDT 2,000 mg dexAMETHasone (DECADRON) 4 mg/mL injection intravenous, Administer over 2 Minutes, As needed, Starting on Tue01/11/23 at 0831, Anesthesia Intra-op Given 01/11/2023 8:31 AM CDT 4 mg ePHEDrine injection intravenous, Administer over 5 Minutes, As needed, Starting on Tue01/11/23 at 0814, Anesthesia Intra-op Given 01/11/2023 8:40 AM CDT 5 mg Given 01/11/2023 8:16 AM CDT 10 mg fentaNYL (SUBLIMAZE) preservative free injection intravenous, As needed, Starting on Tue01/11/23 at 0743, Anesthesia Intra-op Given 01/11/2023 7:43 AM CDT 50 mcg Given 01/11/2023 7:39 AM CDT 50 mcg glycopyrrolate (ROBINUL) injection intravenous, Administer over 1 Minutes, As needed, Starting on Tue01/11/23 at 0943, Anesthesia Intra-op Given 01/11/2023 9:43 AM CDT 0.4 mg HYDROmorphone (DILAUDID) injection intravenous, Administer over 2 Minutes, As needed, Starting on Tue01/11/23 at 0844, Anesthesia Intra-op Given 01/11/2023 8:44 AM CDT 0.4 mg Lactated Ringer's (LR) infusion 30 mL/hr, intravenous, Continuous, Starting on Tue01/11/23 at 0645, Pre-Op Restarted 01/11/2023 9:48 AM CDT Rate/Dose Verify 01/11/2023 7:27 AM CDT 30 mL/h r New Bag 01/11/2023 6:12 AM CDT 30 mL/hr 30 mL/hr Lactated Ringer's (LR) infusion intravenous, Continuous PRN, Starting on Tue01/11/23 at 0757, Anesthesia Intra-op New Bag 01/11/2023 7:57 AM CDT lidocaine (cardiac) (XYLOCAINE) preservative free injection intravenous, As needed, Starting on Tue01/11/23 at 0743, Anesthesia Intra-op, Indications: Ventricular ArrhythmiasIndications:Ventricular Arrhythmias Given 01/11/2023 7:43 AM CDT 80 mg midazolam (VERSED) 1 mg/mL preservative free injection intravenous, Administer over 2 Minutes, As needed, Starting on Tue01/11/23 at 0731, Anesthesia Intra-op Given 01/11/2023 7:31 AM CDT 1 mg neostigmine (PROSTIGMIN) injection intravenous, Administer over 3 Minutes, As needed, Starting on Tue01/11/23 at 0943, Anesthesia Intra-op Given 01/11/2023 9:43 AM CDT 2 mg ondansetron (ZOFRAN) injection intravenous, Administer over 2 Minutes, As needed, Starting on Tue01/11/23 at 0926, Anesthesia Intra-op Given 01/11/2023 9:26 AM CDT 4 mg phenylephrine ([place]STON-SYNEPHRINE) 1 mg/10 mL (100 mcg/mL) in sodium chloride 0.9% (premix) intravenous, As needed, Starting on Tue01/11/23 at 0814, Anesthesia Intra-op Given 01/11/2023 9:28 AM CDT 100 mcg Given 01/11/2023 9:13 AM CDT 100 mcg Given 01/11/2023 8:41 AM CDT 100 mcg phenylephrine ([place]STON-SYNEPHRINE) 5 mg/50 mL (100 mcg/mL) in sodium chloride 0.9% (premix) intravenous, Continuous PRN, Starting on Tue01/11/23 at 0759, Anesthesia Intra-op Rate/Dose Change 01/11/2023 9:20 AM CDT 0.3 mcg/kg/min 10.08 mL/hr Restarted 01/11/2023 9:08 AM CDT 0.2 mcg/kg/min 6.72 mL/h r Rate/Dose Change 01/11/2023 9:04 AM CDT 0.2 mcg/kg/min 6.7 2 mL/hr propofoL (DIPRIVAN) 10 mg/mL IV intravenous, As needed, Starting on Tue01/11/23 at 0743, Anesthesia Intra-op Given 01/11/2023 7:49 AM CDT 30 mg Given 01/11/2023 7:45 AM CDT 20 mg Given 01/11/2023 7:43 AM CDT 150 mg rocuronium (ZEMURON) injection intravenous, As needed, Starting on Tue01/11/23 at 0827, Anesthesia Intra-op Given 01/11/2023 8:27 AM CDT 20 mg Given 01/11/2023 8:00 AM CDT 40 mg succinylcholine (ANECTINE) injection intravenous, As needed, Starting on Tue01/11/23 at 0743, Anesthesia Intra-op Given 01/11/2023 7:43 AM CDT 80 mg vancomycin 1,000 mg/200 mL in dextrose 5% (premix) 1,000 mg 1,000 mg, intravenous, Administer over 60 Minutes, Once, On Tue01/11/23 at 0645, For 1 dose, Pre-Op, Indications: Prophylaxis, SurgicalIndications:Prophylaxis, Surgical Given 01/11/2023 7:57 AM CDT 1,000 mg documented in this encounter Care Teams Fish Bait Picker Relationship Specialty Start Date End Date Kacey Gonzalez MD PCP - General Family Medicine 04/07/21 06/08/23 Kristen Mancera MD Medical Oncologist/Shirt Trimmer Medical Oncology 11/21/20 Lewis Sunshine MD [address] [address] Surgeon Orthopedic Surgery 01/05/23 documented as of this encounter
--- OUTSIDE RECORDS SUMMARY | 2024-10-06 07:04 | XMS_ITS | Encounter Summary ---
Author Organization [facility] Healthcare Address [address] [place] [address] Care Team Providers Care Offset Press Operator Helper Name Role Phone Kristen Mancera MD Unavailable Kacey Gonzalez MD Primary Care Provider [phone] Reason for Referral * Diagnostic Imaging (Routine) - Closed Specialty Diagnoses / Procedures Referred By Contac t Referred To Contact Radiology Diagnoses Lumbar back pain with radiculopathy affecting left lower extremity Procedures IR Transforaminal Epidural Injection Lumbar Sacral [place] [address] [place] [address] Phone: tel: fax: [address] [address] Referral ID Status Reason Start Date Expiration Date Visits Re quested Visits Authorized [id number] Closed 11/08/2022 12/08/2023 1 1 IAL INSPECTOR Reason for Visit * Diagnostic Imaging (Routine) - Closed Specialty Diagnoses / Procedures Referred By Contac t Referred To Contact Radiology Diagnoses Lumbar back pain with radiculopathy affecting left lower extremity Procedures IR Transforaminal Epidural Injection Lumbar Sacral [place] [address] [place] [address] Phone: tel: fax: [facility] [address] [place] [address] Referral ID Status Reason Start Date Expiration Date Visits Re quested Visits Authorized [id number] Closed 11/08/2022 12/08/2023 1 1 Encounter Details Date Type Department Care Team (Latest Contact Info) Description 11/12/2022 10:47 AM SPECIAL INSPECTOR - 11/12/2022 11:59 PM SPECIAL INSPECTOR Hospital Encounter [facility] [address] [place] [address] [place] [address] [place] [address] Lumbar back pain with radiculopathy affecting left lower extremity (Primary Dx) Discharge Disposition: Discharge to home or self [...] on file Legal Sex Female 10:19 PM SPECIAL INSPECTOR Gender Identity Not on file Sexual Orientation Not on file documented as of this encounter Last Filed Vital Signs Vital Sign Reading Time Taken Comments Blood Pressure 141/77 11/12/2022 11:32 AM SPECIAL INSPECTOR Pulse 78 11/12/2022 11:32 AM SPECIAL INSPECTOR Temperature - - Respiratory Rate 16 11/12/2022 11:32 AM SPECIAL INSPECTOR Oxygen Saturation 97% 11/12/2022 11:32 AM SPECIAL INSPECTOR Inhaled Oxygen Concentration - - Weight - - Height - - Body Mass Index - - documented in this encounter Discharge Instructions * Patient Instructions* Richar Verma MD - 11/12/2022 11:20 AM SPECIAL INSPECTOR Post Procedure Instructions You received an epidural steroid injection to your lumbosacral spine on the left side. Your injection included: Lidocaine (numbing medicine). The numbing medicine usually lasts for 30- 45 minutes. During this time, your leg may feel weak and numb due to the effects of the numbing medicine. If this occurs, it is important to stay safe and do not stand or walk without assistance until the numbing medicine wears off. Do not drive for one hour after the injection. Dexamethasone (steroid medicine for inflammation and pain). The steroid will start working within the next three to five days and can take up to two weeks for the full effect. When you get home: Resume your medicine including any blood thinner you held prior to the injection. Resume your normal diet For soreness, you may place an ice pack once an hour at the injection site for 15-20 minutes. You may shower. To prevent infection, do not take a bath, swim or sit in a Jacuzzi or hot tub for the next two days. Drink plenty of fluids to decrease a chance of a headache associated with steroids. You may resume your physical therapy appointments in 24 hours. Do not exercise for 24 hours, regular day-to-day activities are OK to perform. Diabetic patients: Steroid injections may lead to higher blood glucose (sugar) levels temporarily. Most commonly, the higher levels will return to normal within 1-3 days, though effects may last longer. Rises in blood glucose levels may be more significant in patients with poorly controlled type 2 diabetes (those with HbA1c levels greater than 7) and those with type I diabetes. Check fasting (cad design engineer prior to first meal of the day) and post-prandial (following meals) blood glucose levels. Contact the physician who manages your diabetes if your blood sugar is significantly elevated (for example, over 100mg/dL higher than your pre- injection level) or if blood sugar levels remain significantly elevated 2 days after receiving the injection, to discuss whether a change in medication dosing is needed. For urgent concerns after hours, call our exchange at [phone]. For all other questions regarding the procedure, please call our office at [phone]. Pain Diary Please fill out the pain diary chart below and call or message via [facility] to Dr. Verma in two weeks. By how much has your pain improved after your injection? Therapeutic Injection: NOT IMPROVED IMPROVED A LITTLE IMPROVED A LITTLE MORE IMPROVED A LOT NO PAIN Immediately? 0% 20% 50% 80% 100% 6 hours after? 0% 20% 50% 80% 100% 24 hours after? 0% 20% 50% 80% 100% 4 days after? 0% 20% 50% 80% 100% 1 week after? 0% 20% 50% 80% 100% 10 days after? 0% 20% 50% 80% 100% 2 weeks after? 0% 20% 50% 80% 100% IAL INSPECTOR documented in this encounter Medications at Time [...] or self care documented in this encounter Progress Notes * Richar Verma MD - 11/12/2022 11:20 AM CST Left S1 Transforaminal Epidural Steroid Injection [facility] Department of Orthopedic Surgery Division of Physical Medicine and Rehabilitation Patient name: Karen Medeiros Date of : 1970 Date of service: 11/12/2022 Karen Medeiros presents to the fluoroscopy suite for a fluoroscopically guided left S1 transforaminal epidural steroid injection for conservative treatment of intervertebral disc disorder with lumbosacral radiculopathy. After informed consent was obtained, the patient was positioned in the proneposition on the fluoroscopy table. The area was prepped with chlorhexidine and draped in sterile fashion. No local anesthetic was used. Then, a a 25 gauge 2 inch needle was advanced to the superolateral S1 transforaminal space and advanced into the epidural space under fluoroscopic guidance. Confirmation into the epidural space was obtained with infusion of 0.5 mL of Omnipaque contrast, which showed epidural flow as well as nerve sheath flow. Then a combination of 2 mL of 1% lidocaine and 10 mgof 10 mg/mL dexamethasone was infused. The patient tolerated the procedure without complications. Pre and post procedure blood pressure were stable. The patient was given verbal as well as written follow-up instructions. A pain diary was given to the patient with follow-up instructions. At the timeof discharge following today's procedure, the patient was able to ambulate at their pre-procedure level and denied ongoing nausea, vomiting, or dizziness. Prior to the start of the procedure, verbal verification by the procedure participant(s) confirmed (as applicable): correct patient identity; correct site/side marked and visible; agreement on the procedure to be done; correct patient positioning; an accurate signed procedure consent form, relevantimages and results correctly labeled and displayed; any safety precautions based on clinical history and/or medication use have been addressed. Fluoroscopic guidance used to assist left S1 transforaminal epidural steroid injection. Confirmation of needle placement into the epidural space via the left S1 neural foramen was obtained by injecting approximately 0.5 mL of Omnipaque contrast. There was no evidence of vascular uptake or subdural flow noted. I personally performed or was present for the entire procedure above. Richar Verma MD IAL INSPECTOR documented in this encounter Plan of Treatment Not on file documented as of this encounter Procedures Procedure Name Priority Date/Time Associated Diagnosis Comments TRANSFORAMINAL EPIDURAL INJECTION LUMBAR SACRAL 1 LEVEL LEFT Schedule Routine, Read Routine (OP Routine) 11/12/2022 11:25 AM SPECIAL INSPECTOR Lumbar back pain with radiculopathy affecting left lower extremity documented in this encounter Results * IR Transforaminal Epidural Injection Lumbar Sacral 1 Level Left (11/12/2022 11:25 AM SPECIAL INSPECTOR) Narrative [id number] - 11/12/2022 11:25 AM SPECIAL INSPECTOR The images from this study are not interpreted by Radiology. ??Please refer to the physician's procedure / OR operative note. Nelsy RODRIGUES IMG IR PROCEDURES Final Res ult [id number] documented in this encounter Visit Diagnoses Diagnosis Lumbar back pain with radiculopathy affecting left lower extremity- Primary documented in this encounter Administered Medications Inactive Administered Medications - up to 3 most recent administrations Medication Order MAR Action Action Date Dose Rate Site dexAMETHasone (DECADRON) preservative free solution Administer over 2 Minutes, As needed, Starting on Tue11/12/22 at 1123, Intra-Op Given 11/12/2022 11:23 AM SPECIAL INSPECTOR 10 mg iohexoL (OMNIPAQUE) 300 mg iodine/mL injection solution As needed, Starting on 11/12/22 at 1123, Intra-Op Given 11/12/2022 11:23 AM SPECIAL INSPECTOR 0.5 mL lidocaine PF (XYLOCAINE) 10 mg/mL (1 %) preservative free injection As needed, Starting on Tue11/12/22 at 1123, Intra-Procedure (IR), Indications: Administration of Local AnesthesiaIndications:Administrat ion of Local Anesthesia Given 11/12/2022 11:23 AM SPECIAL INSPECTOR 3 mL documented in this encounter Care Teams Offset Press Operator Helper Relationship Specialty Start Date End Date Kacey Gonzalez MD PCP - General Family Medicine 04/07/21 06/08/23 Kristen Mancera MD Medical Oncologist/Brazer Crawler Torch Medical Oncology 11/21/20 documented as of this encounter
--- OUTSIDE RECORDS SUMMARY | 2024-10-06 07:04 | XMS_ITS | Encounter Summary ---
Author Organization [facility] Address [address] [place] [address] Phone Care Team Providers Care Flute Teacher Name Role Phone Kristen Mancera MD Unavailable Kacey Gonzalez MD Primary Care Provider [phone] Encounter Details Date Type Department Care Team (Late st Contact Info) Description 12/31/2022 Documentation [facility] Transplant [address] [facility] [facility] [address], [place] [address] Vita Hunter, RN Social History Tobacco Use Types Packs/Day Years Used Date Smoking Tobacco: Never Smokeless Tobacco: Never PHQ-2 Answer Date Recorded PHQ-2 Total Score (If total score is 3 or more points, staff should administer the PHQ-9) 0 04/20/2022 Comments No Sex and Gender Information Value Date Recorded Sex Assigned at Not on file Legal Sex Female 10:19 PM HALL CLERK Gender Identity Not on file Sexual Orientation Not on file documented as of this encounter Nursing Notes * Vita Jones RN - 12/31/2022 6:05 PM CDT Patient sent Evolita message reporting back surgery is scheduled for 01/11/2023. Last CBC from 07/2022 shows WBC 2.5 and ANC 600. Will repeat CBC on 01/03 at [facility]. If still neutropenic will start Zarxio 3 times weekly leading up to the surgery. Zarxio plan entered. documented in this encounter Plan of Treatment Not on file documented as of this encounter Visit Diagnoses Diagnosis 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CMS/HCC) (HCC)- Primary Cyclic neutropenia documented in this encounter Care Teams Flute Teacher Relationship Specialty Start Date End Date Kacey Gonzalez MD PCP - General Family Medicine 04/07/21 06/08/23 Kristen Mancera MD Medical Oncologist/Wine Blender Medical Oncology 11/21/20 documented as of this encounter
--- OUTSIDE RECORDS SUMMARY | 2024-10-06 07:04 | XMS_ITS | Encounter Summary ---
Author Organization [facility] Healthcare Address [address] [place] [address] Care Team Providers Care Air Conditioning Coil Assembler Name Role Phone Kristen Mancera MD Unavailable Kacey Gonzalez MD Primary Care Provider [phone] Reason for Referral * MRI/CAT/PET Scan (Routine) - Closed Specialty Diagnoses / Procedures Referred By Contac t Referred To Contact Radiology Diagnoses Acute left-sided low back pain with left-sided sciatica Procedures MRI [place]bar [place] [address] [place] [address] Phone: tel: fax: [address] [address] Referral ID Status Reason Start Date Expiration Date Visits Re quested Visits Authorized [id number] Closed 11/02/2022 12/31/2022 1 1 RIAL REQUIREMENTS PLANNING MANAGER Reason for Visit * MRI/CAT/PET Scan (Routine) - Closed Specialty Diagnoses / Procedures Referred By Contac t Referred To Contact Radiology Diagnoses Acute left-sided low back pain with left-sided sciatica Procedures MRI Lumbar [place] [address] [place] [address] Phone: tel: fax: [address] [place] [address] Referral ID Status Reason Start Date Expiration Date Visits Re quested Visits Authorized [id number] Closed 11/02/2022 12/31/2022 1 1 Encounter Details Date Type Department Care Team (Latest Contact Info) Description 11/05/2022 8:29 AM MATERIAL REQUIREMENTS PLANNING MANAGER - 11/05/2022 11:59 PM MATERIAL REQUIREMENTS PLANNING MANAGER Hospital Encounter [facility] [address] [place] [id number] Acute left-sided low back pain with left-sided [...] on file Legal Sex Female 10:19 PM MATERIAL REQUIREMENTS PLANNING MANAGER Gender Identity Not on file Sexual [...] times a day 80 g 1 04/20/2022 03/29/20 23 zolpidem (AMBIEN) 10 mg tabletIndications: Neutropenia, [...] Procedure Name Priority Date/Time Associated Diagnosis Comments MRI LUMBAR SPINE WO CONTRAST Schedule Routine, Read Routine (OP Routine) 11/05/2022 9:11 AM MATERIAL REQUIREMENTS PLANNING MANAGER Acute left-sided low back pain with left-sided sciatica documented in this encounter Results * MRI Lumbar Spine WO Contrast (11/05/2022 9:11 AM MATERIAL REQUIREMENTS PLANNING MANAGER) Anatomical Region Laterality Modality Spine N/A Magnetic Resonan ce 11/05/2022 10:0 1 AM MATERIAL REQUIREMENTS PLANNING MANAGER Impressions 11/05/2022 10:03 AM MATERIAL REQUIREMENTS PLANNING MANAGER Mild degenerative changes of the lumbar spine. ??A superimposed left subarticular disc protrusion at L5-S1 asymmetrically encroaches on the descending left S1 nerve root. ??Correlation for symptoms of a left S1 radiculopathy is recommended. ??No high-grade lumbar spinal canal stenosis or neuroforaminal narrowing. ??See level by level details above. Dictated by: Gerardo Blackman MD The radiology attending physician has personally reviewed this study, and had reviewed and/or edited this written report and agrees with it. Electronically signed by: Genevieve Aldrich M.D. Narrative 11/05/2022 10:03 AM MATERIAL REQUIREMENTS PLANNING MANAGER EXAMINATION: Magnetic resonance imaging (MRI) of the lumber spine without contrast. HISTORY: Low back pain with left-sided sciatica. TECHNIQUE: Multiplanar multi-weighted MRI of the lumbar spine was performed without intravenous contrast using the standard lumbar spine protocol. COMPARISON: None available. FINDINGS: The alignment of the lumbar spine is normal. Vertebral bodies demonstrate normal signal intensity on all sequences. There are no compression fractures. The conus medullaris terminates at the level of T12. The distal spinal cord signal intensity is normal. There is mild intervertebral disc height loss and disc desiccation at L5-S1 with mild disc desiccation at L2-L3 and L3-L4. Limited views of the abdomen and pelvis show no soft tissue abnormality. The aorta is normal. 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 L1-L2: The disc is normal in configuration. There is no facet arthropathy. There is no neuroforaminal stenosis. There is no spinal canal stenosis. L2-L3: ??Disc bulge. ??Ligamentum flavum infolding There is mild bilateral facet arthropathy. There is no neuroforaminal stenosis. There is mild spinal canal stenosis L3-L4: ??Disc bulge. ??Ligamentum flavum infolding. There is moderate left and mild right facet arthropathy. There is mild left neuroforaminal stenosis. There is mild spinal canal stenosis L4-L5: ??Disc bulge. ??Ligamentum flavum infolding. There is moderate bilateral facet arthropathy. There is mild bilateral neuroforaminal stenosis. There is mild spinal canal stenosis L5-S1: ??Disc bulge. ??A superimposed left subarticular disc protrusion asymmetrically encroaches on the descending left S1 nerve root and effaces the left lateral recess. There is mild bilateral facet arthropathy. There is mild left neuroforaminal stenosis. There is mild spinal canal stenosis Procedure Note Genevieve Aldrich MD - 11/05/2022 EXAMINATION: Magnetic resonance imaging (MRI) of the lumber spine without contrast. HISTORY: Low back pain with left-sided sciatica. TECHNIQUE: Multiplanar multi-weighted MRI of the lumbar spine was performed without intravenous contrast using the standard lumbar spine protocol. COMPARISON: None available. FINDINGS: The alignment of the lumbar spine is normal. Vertebral bodies demonstrate normal signal intensity on all sequences. There are no compression fractures. The conus medullaris terminates at the level of T12. The distal spinal cord signal intensity is normal. There is mild intervertebral disc height loss and disc desiccation at L5-S1 with mild disc desiccation at L2-L3 and L3-L4. Limited views of the abdomen and pelvis show no soft tissue abnormality. The aorta is normal. 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 L1-L2: The disc is normal in configuration. There is no facet arthropathy. There is no neuroforaminal stenosis. There is no spinal canal stenosis. L2-L3: Disc bulge. Ligamentum flavum infolding There is mild bilateral facet arthropathy. There is no neuroforaminal stenosis. There is mild spinal canal stenosis L3-L4: Disc bulge. Ligamentum flavum infolding. There is moderate left and mild right facet arthropathy. There is mild left neuroforaminal stenosis. There is mild spinal canal stenosis L4-L5: Disc bulge. Ligamentum flavum infolding. There is moderate bilateral facet arthropathy. There is mild bilateral neuroforaminal stenosis. There is mild spinal canal stenosis L5-S1: Disc bulge. A superimposed left subarticular disc protrusion asymmetrically encroaches on the descending left S1 nerve root and effaces the left lateral recess. There is mild bilateral facet arthropathy. There is mild left neuroforaminal stenosis. There is mild spinal canal stenosis IMPRESSION: Mild degenerative changes of the lumbar spine. A superimposed left subarticular disc protrusion at L5-S1 asymmetrically encroaches on the descending left S1 nerve root. Correlation for symptoms of a left S1 radiculopathy is recommended. No high-grade lumbar spinal canal stenosis or neuroforaminal narrowing. See level by level details above. Dictated by: Gerardo Blackman MD The radiology attending physician has personally reviewed this study, and had reviewed and/or edited this written report and agrees with it. Electronically signed by: Genevieve Aldrich M.D. Nelsy RODRIGUES IMG MRI PROCEDURES Final Re sult documented in this encounter Visit Diagnoses Diagnosis Acute left-sided low back pain with left-sided sciatica documented in this encounter Care Teams Air Conditioning Coil Assembler Relationship Specialty Start Date End Date Kacey Gonzalez MD PCP - General Family Medicine 04/07/21 06/08/23 Kristen Mancera MD Medical Oncologist/Cigarette Seller Medical Oncology 11/21/20 documented as of this encounter
--- OUTSIDE RECORDS SUMMARY | 2024-10-06 07:04 | XMS_ITS | Encounter Summary ---
Author Organization [facility] Healthcare Address [address] [place] [address] Care Team Providers Care Release Of Information Clerk Name Role Phone Kristen Mancera MD Unavailable Kacey Gonzalez MD Primary Care Provider [phone] Encounter Details Date Type Department Care Team (Latest Contact Info) Description 01/03/2023 7:28 AM CDT - 01/03/2023 11:59 PM CDT Hospital Encounter [facility] [place] [facility] ([facility]) [address] [place] [address] Neutropenia, unspecified type (HCC) Discharge Disposition: Discharge to home or self [...] on file Legal Sex Female 10:19 PM INKER MACHINE Gender Identity Not on file Sexual Orientation [...] Procedure Name Priority Date/Time Associated Diagnosis Comments DIFFERENTIAL AUTO Routine 01/03/2023 7:3 8 AM CDT Neutropenia, unspecified type (HCC) CBC WITH AUTO DIFFERENTIAL Routine 01/03/2023 7:38 AM CDT Neutropenia, unspecified type (HCC) documented in this encounter Results * (ABNORMAL) Differential, auto (01/03/2023 7:38 AM CDT) Neutrophil abs 1.6(L) 1.8 - 6.6 K/cumm [facility] Comment:Testing performed by : [facility], [address] [place] [phone] Lymphocyte abs 1.6 1.2 - 3.3 K/cumm [facility] Comment:Testing performed by : [facility], [address] [place] [phone] Monocyte abs 0.5 0.2 - 1.2 K/cumm [facility] Comment:Testing performed by : [facility], [address] [place] [phone] Eosinophil abs 0.3 0.0 - 0.5 K/cumm [facility] Comment:Testing performed by : [facility], [address] [place] [phone] Basophil abs 0.1 0.0 - 0.2 K/cumm [facility] Comment:Testing performed by : [facility], [address] [place] [phone] Neutrophil pct 38.4 % [facility] Comment: Interpretive Data Percent cell count reference ranges are not reported, since discordance with absolute values may lead to misinterpretation of CBC data. Current Interpretive Data was last revised on 2018. Testing performed by: [facility], [address] [place] [phone] Lymphocyte pct 39.3 % [facility] Comment: Interpretive Data Percent cell count reference ranges are not reported, since discordance with absolute values may lead to misinterpretation of CBC data. Current Interpretive Data was last revised on 2018. Testing performed by: [facility], [address] [place] [phone] Monocyte pct 12.1 % [facility] Comment:Testing performed by : [address] [phone] Eosinophil pct 7.1 % [facility] Comment:Testing performed by : [facility], [address] [place] [phone] Basophil pct 3.1 % [facility] Comment:Testing performed by : [facility], [address] [place] [phone] Blood 01/03/2023 7:38 AM CDT 01/03/2023 7:40 AM CDT us Kristen Mancera MD LAB BLOOD ORDERABLES Final Resul t [facility] [place] [address] * CBC with auto differential (01/03/2023 7:38 AM CDT) WBC 4.1 3.8 - 9.8 K/cumm [facility] Comment:Testing performed by : [facility], [address] [place] [phone] Hgb 13.6 12.1 - 15.1 g/dL [facility] Comment:Testing performed by : [facility], [address] [place] [phone] Hct 40.5 36.1 - 44.3 % [facility] Comment:Testing performed by : [facility], [address] [place] [phone] Plt 302 140 - 440 K/cumm [facility] Comment:Testing performed by : [address] [phone] MPV 8.2 6.8 - 10.4 fL [facility] Comment:Testing performed by : [facility], [address] [place] [phone] RBC 4.26 3.90 - 5.00 M/cumm [facility] Comment:Testing performed by : [address] [phone] MCV 95.0 80.0 - 97.6 fL [facility] Comment:Testing performed by : [address] [phone] MCH 31.9 26.7 - 33.7 pg [facility] Comment:Testing performed by : [facility], [address] [place] [phone] MCHC 33.6 32.7 - 35.5 g/dL [facility] Comment:Testing performed by : [facility], [address] [place] [phone] RDW CV 12.1 11.8 - 14.6 % [facility] Comment:Testing performed by : [facility], [address] [place] [phone] NRBC abs 0.00 0.00 - 0.01 K/cumm [facility] Comment:Testing performed by : [facility], [address] [place] [phone] Blood 01/03/2023 7:38 AM CDT 01/03/2023 7:40 AM CDT us Kristen Mancera MD LAB BLOOD ORDERABLES Final Resul t [facility] [place] [address] documented in this encounter Visit Diagnoses Diagnosis Neutropenia, unspecified type (HCC) documented in this encounter Care Teams Release Of Information Clerk Relationship Specialty Start Date End Date Kacey Gonzalez MD PCP - General Family Medicine 04/07/21 06/08/23 Kristen Mancera MD Medical Oncologist/Air Route Controller Medical Oncology 11/21/20 documented as of this encounter
--- OUTSIDE RECORDS SUMMARY | 2024-10-06 07:04 | XMS_ITS | Encounter Summary ---
Author Organization [facility] Healthcare Address [address] [place] [address] Care Team Providers Care Unified Communications Engineer Name Role Phone Kristen Mancera MD Unavailable Kacey Gonzalez MD Primary Care Provider [phone] Lewis Sunshine MD Unavailable [phone]- [phone] Encounter Details Date Type Department Care Team (Latest Contact Info) Description 01/14/2023 12:47 PM CDT - 01/14/2023 11:59 PM CDT Hospital Encounter [facility] [place] [facility] ([facility]) [address] [place] [phone] Discharge Disposition: Discharge to home or self [...] on file Legal Sex Female 10:19 PM DATABASE DBA Gender Identity Not on file Sexual Orientation Not on file documented as of this encounter Medications at Time of Discharge levonorgestrel (MIRENA) IUDIndications:Abn ormal Uterine Bleeding, Contraception 1 each by intrauterine route once 02/22/2014 multivitamin capsuleIndications :Vitamin Deficiency Prevention Take 1 capsule by mouth petrography teacher before breakfast acetaminophen (TYLENOL) 500 mg tabletIndications: [...] on filedocumented in this encounter Care Teams Unified Communications Engineer Relationship Specialty Start Date End Date Kacey Gonzalez MD PCP - General Family Medicine 04/07/21 06/08/23 Kristen Mancera MD Medical Oncologist/Building [employer] Medical Oncology 11/21/20 Lewis Sunshine MD [address] [address] Surgeon Orthopedic Surgery 01/05/23 documented as of this encounter
--- OUTSIDE RECORDS SUMMARY | 2024-10-06 07:04 | XMS_ITS | Encounter Summary ---
Author Organization [facility] Healthcare Address [address] [place] [address] Care Team Providers Care Professor In Family Studies Name Role Phone Kristen Mancera MD Unavailable Kacey Gonzalez MD Primary Care Provider [phone] [phone] Lewis Sunshine MD Unavailable [phone]- [phone] Encounter Details Date Type Department Care Team (Latest Contact Info) Description 03/04/2023 12:12 PM CDT - 03/04/2023 11:59 PM CDT Hospital Encounter [facility]) [address] [place] [phone] Neutropenia, unspecified type (HCC) Discharge Disposition: Discharge [...] on file Legal Sex Female 10:19 PM OUTSIDE INSTALLER APPRENTICE Gender Identity Not on file Sexual Orientation Not on file documented as of this encounter Medications at Time of Discharge levonorgestrel (MIRENA) IUDIndications:Abn ormal Uterine Bleeding, Contraception 1 each by intrauterine route once 02/22/2014 multivitamin capsuleIndications :Vitamin Deficiency Prevention Take 1 capsule by mouth assembler fitter before breakfast ALPRAZolam (XANAX) 0.25 mg tabletIndications: Neutropenia, unspecified type (HCC) Take 1 tablet (0.25 mg total) by mouth 2 (two) times a day 30 tablet 08/03/2022 06/09/20 23 zolpidem (AMBIEN) 10 mg tabletIndications: Neutropenia, [...] Priority Date/Time Associated Diagnosis Comments EGFR Routine 03/04/2023 10:47 AM CDT Neutropenia, unspecified type (HCC) DIFFERENTIAL AUTO Routine 03/04/2023 10: 47 AM CDT Neutropenia, unspecified type (HCC) CBC WITH AUTO DIFFERENTIAL Routine 03/04/2023 10:47 AM CDT Neutropenia, unspecified type (HCC) LACTATE DEHYDROGENASE Routine 03/04/2023 10:47 AM CDT Neutropenia, unspecified type (HCC) COMPREHENSIVE METABOLIC PANEL Routine 03/04/2023 10:47 AM CDT Neutropenia, unspecified type (HCC) documented in this encounter Results * eGFR (03/04/2023 10:47 AM CDT) eGFR >90 90 - 130 mL/min/1. 73 m2 [facility] Comment: Interpretive Data Reference Interval Normal ?>/= [...] was last reviewed 2021. Testing performed by: [facility], [address] [place] [phone] Blood 03/04/2023 10:4 7 AM CDT 03/04/2023 10:48 AM CDT us Kristen Mancera MD LAB BLOOD ORDERABLES Final Resul t [facility] Department of Laboratories [place], [place] [id number] * Differential, auto (03/04/2023 10:47 AM CDT) Neutrophil abs 1.9 1.8 - 6.6 K/cumm [facility] Comment:Testing performed by : [facility], [address] [place] [phone] Lymphocyte abs 1.6 1.2 - 3.3 K/cumm [facility] Comment:Testing performed by : [facility], [address] [place] [phone] Monocyte abs 0.6 0.2 - 1.2 K/cumm [facility] Comment:Testing performed by : [facility], [address] [place] [phone] Eosinophil abs 0.2 0.0 - 0.5 K/cumm [facility] Comment:Testing performed by : [facility], [address] [place] [phone] Basophil abs 0.1 0.0 - 0.2 K/cumm [facility] Comment:Testing performed by : [facility], [address] [place] [phone] Neutrophil pct 43.3 % [facility] Comment: Interpretive Data Percent cell count reference ranges are not reported, since discordance with absolute values may lead to misinterpretation of CBC data. Current Interpretive Data was last revised on 2018. Testing performed by: [address] [phone] Lymphocyte pct 36.8 % [facility] Comment: Interpretive Data Percent cell count reference ranges are not reported, since discordance with absolute values may lead to misinterpretation of CBC data. Current Interpretive Data was last revised on 2018. Testing performed by: [address] [phone] Monocyte pct 13.4 % [facility] Comment:Testing performed by : [address] [phone] Eosinophil pct 5.2 % [facility] Comment:Testing performed by : [facility], [address] [place] [phone] Basophil pct 1.3 % [facility] Comment:Testing performed by : [address] [phone] Blood 03/04/2023 10:4 7 AM CDT 03/04/2023 10:48 AM CDT us Kristen Mancera MD LAB BLOOD ORDERABLES Final Resul t [facility] [place] [address] * CBC with auto differential (03/04/2023 10:47 AM CDT) WBC 4.4 3.8 - 9.8 K/cumm [facility] Comment:Testing performed by : [facility], [address] [place], [place] [phone] Hgb 13.1 12.1 - 15.1 g/dL [facility] Comment:Testing performed by : [facility], [address] [place], [place] [phone] Hct 39.4 36.1 - 44.3 % [facility] Comment:Testing performed by : [place] [id number] Plt 272 140 - 440 K/cumm [facility] Comment:Testing performed by : [place] [id number] MPV 8.2 6.8 - 10.4 fL [facility] Comment:Testing performed by : [place] [id number] RBC 4.21 3.90 - 5.00 M/cumm [facility] Comment:Testing performed by : [place] [id number] MCV 93.6 80.0 - 97.6 fL [facility] Comment:Testing performed by : [place] [id number] MCH 31.2 26.7 - 33.7 pg [facility] Comment:Testing performed by : [address] [address] MCHC 33.3 32.7 - 35.5 g/dL [facility] Comment:Testing performed by : [place] [id number] RDW CV 12.0 11.8 - 14.6 % [facility] Comment:Testing performed by : [address] [address] NRBC abs 0.00 0.00 - 0.01 K/cumm [facility] Comment:Testing performed by : [facility], [address] [place] [phone] Blood 03/04/2023 10:4 7 AM CDT 03/04/2023 10:48 AM CDT us Kristen Mancera MD LAB BLOOD ORDERABLES Final Resul t [facility] Department [place] [address] * (ABNORMAL) Comprehensive metabolic panel (03/04/2023 10:47 AM CDT) Sodium 137 135 - 145 mmol/L [facility] Comment:Testing performed by : [facility], [address] [place] [phone] Potassium, pl 4.8 3.3 - 4.9 mmol/L [facility] Comment:Testing performed by : [facility], [address] [place] [phone] Chloride 102 97 - 110 mmol/L [facility] Comment:Testing performed by : [facility], [address] [place] [phone] CO2 30 22 - 32 mmol/L [facility] Comment:Testing performed by : [facility], [address] [place] [phone] Anion gap 5 2 - 15 mmol/L [facility] Comment:Testing performed by : [facility], [address] [place] [phone] BUN 12 8 - 25 mg/dL [facility] Comment:Testing performed by : [facility], [address] [place] [phone] Creatinine 0.59(L) 0.60 - 1.10 mg/dL [facility] Comment:Testing performed by : [facility], [address] [place] [phone] Glucose 84 70 - 199 mg/dL [facility] Comment: Interpretive Data Fasting glucose >/= 126 [...] classification and Diagnosis of Diabetes Diabetes Care 202; 46: S19-S40. Current interpretive data was last revised 2022. Testing performed by: [facility], [address] [place] [phone] Calcium 9.7 8.5 - 10.3 mg/dL C[facility] Comment:Testing performed by : [address] [phone] Bilirubin, total 0.4 0.1 - 1.2 mg/dL CERNER [facility] Comment:Testing performed by : [address] [phone] Protein, pl 7.0 6.5 - 8.5 g/dL [facility] Comment:Testing performed by : [facility], [address] [place] [phone] Albumin 4.3 3.5 - 5.0 g/dL CERNER [facility] Comment:Testing performed by : [address] [phone] Alk phos 40 40 - 130 Units/L [facility] Comment:Testing performed by : [address] [phone] ALT 10 7 - 45 Units/L [facility] Comment:Testing performed by : [facility], [address] [place] [phone] AST 15 10 - 45 Units/L [facility] Comment:Testing performed by : [address] [phone] Blood 03/04/2023 10:4 7 AM CDT 03/04/2023 10:48 AM CDT us Kristen Mancera MD LAB BLOOD ORDERABLES Final Resul t [facility] Department [place] [address] * Lactate dehydrogenase (LD) (03/04/2023 10:47 AM CDT) Lactate dehydrogenase (LDH) 118 100 - 250 Units/L [facility] Comment:Testing performed by : [facility], [address] [place] [phone] Blood 03/04/2023 10:4 7 AM CDT 03/04/2023 10:48 AM CDT us Kristen Mancera MD LAB BLOOD ORDERABLES Final Resul t [facility] Department [place] [address] documented in this encounter Visit Diagnoses Diagnosis Neutropenia, unspecified type (HCC) documented in this encounter Care Teams Professor In Family Studies Relationship Specialty Start Date End Date Kacey Gonzalez MD PCP - General Family Medicine 04/07/21 06/08/23 Kristen Mancera MD Medical Oncologist/Tire Manager Medical Oncology 11/21/20 Lewis Sunshine MD [address] [place] [address] Surgeon Orthopedic Surgery 01/05/23 documented as of this encounter
--- OUTSIDE RECORDS SUMMARY | 2024-10-06 07:04 | XMS_ITS | Encounter Summary ---
Author Organization [facility] Address [address] [place] [address] Phone Care Team Providers Care Java Groovy Developer Name Role Phone Kristen Mancera MD Unavailable Kacey Gonzalez MD Primary Care Provider [phone] Reason for Referral * MRI/CAT/PET Scan (Routine) - Closed Specialty Diagnoses / Procedures Referred By Contac t Referred To Contact Radiology Diagnoses Acute left-sided low back pain with left-sided sciatica Procedures MRI [place]bar [place] [address] [place] [address] Phone: tel: fax: [address] [address] Referral ID Status Reason Start Date Expiration Date Visits Re quested Visits Authorized [id number] Closed 11/02/2022 12/31/2022 1 1 SETTER AXMINSTER * Diagnostic Imaging (Routine) - Closed Specialty Diagnoses / Procedures Referred By Contac t Referred To Contact Diagnoses Lumbar spine pain Procedures XR Spine Lumbar 2 [place] [address] [place] [address] Phone: tel: fax: [facility] Referral ID Status Reason Start Date Expiration Date Visits Re quested Visits Authorized [id number] Closed 11/01/2022 12/01/2023 1 1 SETTER AXMINSTER Reason for Visit * Reason Comments Pain Encounter Details Date Type Department Care Team (Late st Contact Info) Description 11/01/2022 1:00 PM RUG SETTER AXMINSTER Office Visit [facility] [place] ([facility]) - [facility] [address] [place] [address] [place] [address] [place] [address] Acute left-sided low back pain with left-sided [...] on file Legal Sex Female 10:19 PM RUG SETTER AXMINSTER Gender Identity Not on file Sexual Orientation Not on file documented as of this encounter Last Filed Vital Signs Vital Sign Reading Time Taken Comments Blood Pressure - - Pulse - - Temperature - - Respiratory Rate - - Oxygen Saturation - - Inhaled Oxygen Concentration - - Weight 54 kg (119 lb) 11/01/2022 1:05 PM RUG SETTER AXMINSTER Height 157.5 cm (5' 2 ) 11/01/2022 1:05 PM RUG SETTER AXMINSTER Body Mass Index 21.77 11/01/2022 1:05 PM RUG SETTER AXMINSTER documented in this encounter Patient Instructions * Patient Instructions* Nelsy Weber PA - 11/01/2022 1:00 PM RUG SETTER AXMINSTER Images from the original note were not included. Karen Huerta Waldemar 1970 1. Acute left-sided low back pain with left-sided sciatica RECOMMENDATIONS: Started on prednisone. Please see information below regarding medication. Started on gabapentin. Take this medication at night. Side effects may cause drowsiness. Okay to take Ambien. Alternate heat and ice to area of discomfort. Initiate outpatient physical therapy Proceed with MRI Follow-up with physiatry team in 6 weeks MRI of lumbar spine has been ordered today to further evaluate your condition. A follow up Telemedicine phone visit has been scheduled to go over the results and to discuss further treatment plan. Please note this will be 2 business days after the test to allow for review and if needed consultation with a surgeon. The time of the telemedicine phone visit is an estimated time for that day. It may fluctuate based on the in person schedule for that day. We are starting you on a steroid called prednisone Potential side effects include stomach upset, difficulty sleeping, and changes in mood. You should take the medication for the day, once in the morning with food to lessen difficulty sleeping. The recommendations you received in the Orthopedic Acute Injury Clinic was an initiation of care for your urgent problem. It is important that you follow the treatment plan as outlined with you at your visit. If your symptoms should worsen, you can reach your Provider through the office at during regular business hours M- from 8:00 a.m. to 4:30 p.m. After 4:30 p.m. or on weekends, please call the Physician/Exchange at . If your symptoms worsen and you are unable to reach anyone at either of the numbers provided, you should seek further medical attention in the ER or with your primary care provider. Nelsy Weber PA-C [facility] Department of Orthopaedic Surgery Working in collaborative practice with Richar Verma M.D. SETTER AXMINSTER documented in this encounter Ordered Prescriptions Prescription Sig Dispense Quantity Refills Last Filled Start Date End Date gabapentin (NEURONTIN) 300 mg capsule Take 1 capsule (300 mg total) by mouth nightly 30 capsule 11/01/2022 3 predniSONE (DELTASONE) 10 mg tablet Prednisone 10 mg tabs Dispense: 30 tabs: Take 4 tabs once daily for 3 days, then; Take 3 tabs once daily for 3 days, then; Take 2 tabs once daily for 3 days, then; Take 1 tab once daily for 3 days. 30 tablet 11/01/2022 3 documented in this encounter Progress Notes * Nelsy Weber, LILIA - 11/01/2022 1:00 PM CST Images from the original note were not included. [facility] CHIEF COMPLAINT Low back and left leg pain REFERRING PROVIDER Self Referral HISTORY OF PRESENT ILLNESS Karen Medeiros is a 52 y.o. who presents to the orthopedic injury clinic with the complaint of acute onset of low back pain with left leg symptoms. Began Tuesday evening. She went to her workout class that day noticed some mild discomfort. Afterwards ran a few areas and came home. As she was getting cleaned up, had a significant onset of severe pain in her left side of her low back radiating to the left lower extremity. Had difficulty getting out of the bathroom. Now having difficulty with walking and bearing weight through the left lower extremity due to severity of pain. She localizes by pointing over the left side of the lumbar spine. Radiates into the buttock and down the leg to theknee. She describes burning numbness and tingling. No bowel or bladder symptoms. Prior history of low back pain in the past, never requiring treatment. Symptoms have never been this severe. PAST MEDICAL HISTORY She has a past medical history of Anxiety (1999). PAST SURGICAL HISTORY She has a past surgical history that includes Breast surgery (April 2003). INITIAL REVIEW OF MEDICATIONS Medication list reviewed. She has a current medication list which includes the following prescription(s): alprazolam, levonorgestrel, zolpidem, gabapentin, prednisone, and triamcinolone. ALLERGIES She is allergic to ibuprofen and tolmetin. SOCIAL HISTORY She reports that she has never smoked. She has never used smokeless tobacco. She reports that she does not use drugs. No alcohol history on file. REVIEW OF SYSTEMS Constitutional: No recent fever, chills, unexplained illnesses or weight loss PHYSICAL EXAMINATION CONSTITUTIONAL/GENERAL: Well-appearing, in no apparent distress. Height: 157.5 cm (5' 2 ) Weight: 54 kg (119 lb) PSYCHIATRIC: Alert, cooperative, appropriate mood and affect SKIN: Skin intact. No swelling, bruising, redness or warmth MUSCULOSKELETAL: Tender on the left side of the lumbosacral spine over the sacroiliac joint and into the sciatic notch on this left side. Has difficulty bearing full weight on the left leg due to pain. Very limited in her lumbar spine range of motion secondary to discomfort. In the seated position passive range of motion of bilateral hip knee and ankle does not recreate pain. She does have positive sit slump test on the left greater than right recreating left- sided low back pain. Motor strengthis 5/5 throughout the lower extremities. EHL strength is intact bilaterally. NEUROLOGICAL: Sensation is intact to light touch to the affected extremity VASCULAR: Brisk capillary refill is intact distally to the affect extremity REVIEW OF IMAGING/STUDIES X-rays two-view lumbar spine are taken at office. I have personally interpreted and reviewed the x-rays with the patient at the visit. Normal disc height and space. Normal alignment IMPRESSION/DIAGNOSIS Acute left-sided low back pain with left-sided sciatica, concern for disc herniation TREATMENT/PLAN The physical exam findings, x-rays and impression are reviewed. Based on the findings, signs and symptoms are consistent with the above impression. I have discussed treatment options with patient/parent. Recommendations are: Will start on prednisone. Dosing, side effects and risks of this medication reviewed. Also because of the radicular symptoms have initiated gabapentin to be taken at night. Alternate heat and ice to the area of discomfort. Recommend initiating outpatient physical therapy. Because of the severity and acute onset of pain recommend also proceeding with MRI for further evaluation of disc herniation. If not improving with medication and physical therapy, patient may require further treatment. Recommendation is follow-up with physiatry team in 6 weeks. Questions are answered. Patient verbalizes understanding and agrees with above treatment plan. Nelsy Weber PA-C [facility] Department of Orthopaedic Surgery Working in collaboration with Richar Verma M.D. Portions of this note were dictated using [employer] Fluency Direct speech recognition software. Please excuse any wood flooring specialist errors. Cosigned by Richar Verma MD at 11/08/2022 8:24 AM RUG SETTER AXMINSTER SETTER AXMINSTER SETTER AXMINSTER documented in this encounter Plan of Treatment Not on file documented as of this encounter Results * MRI Lumbar Spine WO Contrast (11/05/2022 9:11 AM RUG SETTER AXMINSTER) Anatomical Region Laterality Modality Spine N/A Magnetic Resonan ce 11/05/2022 10:0 1 AM RUG SETTER AXMINSTER Impressions 11/05/2022 10:03 AM RUG SETTER AXMINSTER Mild degenerative changes of the lumbar spine. [...] Genevieve Aldrich M.D. Narrative 11/05/2022 10:03 AM RUG SETTER AXMINSTER EXAMINATION: Magnetic resonance imaging (MRI) of the [...] RODRIGUES IMG MRI PROCEDURES Final Re sult * XR Spine Lumbar 2 or 3 Views (11/01/2022 1:31 PM RUG SETTER AXMINSTER) Anatomical Region Laterality Modality Spine N/A Computed Radiogr aphy 11/01/2022 1:36 PM RUG SETTER AXMINSTER Impressions 11/01/2022 1:36 PM RUG SETTER AXMINSTER 1. Minimal stepwise retrolisthesis of L1-L3. Disc heights are preserved. Electronically signed by: Rodrigo Tarango MD Narrative 11/01/2022 1:36 PM RUG SETTER AXMINSTER EXAM: 1. ??XR SPINE LUMBAR 2 OR [...] low back pain with left-sided sciatica- Primary Lumbar spine pain Acute left-sided low back pain with left-sided sciatica documented in this encounter Care Teams Java Groovy Developer Relationship Specialty Start Date End Date Kacey Gonzalez MD PCP - General Family Medicine 04/07/21 06/08/23 Kristen Mancera MD Medical Oncologist/Director Of Radio Services Medical Oncology 11/21/20 documented as of this encounter
--- OUTSIDE RECORDS SUMMARY | 2024-10-06 07:05 | XMS_ITS | Encounter Summary ---
Author Organization [facility] Address [address] [place] [address] Care Team Providers Care Veneer Drier Tailer Name Role Phone Kristen Mancera MD Unavailable Kacey Gonzalez MD Primary Care Provider [phone] Reason for Referral * Diagnostic Imaging (Routine) - Closed Specialty Diagnoses / Procedures Referred By Wilfred stewart Referred To Contact Diagnoses Breast pain, left Procedures US Breast Left Limited Taylor Whittington NP Phone: tel: fax: External Order Referral ID Status Reason Start Date Expiration Date Visits Re quested Visits Authorized [id number] Closed 04/09/2022 05/09/2023 1 1 Reason for Visit * Diagnostic Imaging (Routine) - Closed Specialty Diagnoses / Procedures Referred By Wilfred stewart Referred To Contact Diagnoses Breast pain, left Procedures US Breast Left Limited Taylor Whittington NP Phone: tel: fax: External Order Referral ID Status Reason Start Date Expiration Date Visits Re quested Visits Authorized [id number] Closed 04/09/2022 05/09/2023 1 1 Encounter Details Date Type Department Care Team (Latest Contact Info) Description 04/28/2022 12:11 PM CDT - 04/28/2022 11:59 PM CDT Hospital Encounter [facility] [address] [address] Breast pain, left Discharge Disposition: Discharge to home or self [...] on file 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 Gender Identity Not on file Sexual Orientation Not on file documented as of this encounter Medications at Time of Discharge levonorgestrel (MIRENA) IUDIndications:Abn ormal Uterine Bleeding, Contraception 1 each by intrauterine route once 02/22/2014 ALPRAZolam (XANAX) 0.25 mg tabletIndications: Neutropenia, unspecified type (HCC) Take 1 tablet (0.25 mg total) by mouth 2 (two) times a day 30 tablet 1 12/10/2021 05/14/20 22 triamcinolone (KENALOG) 0.1 % creamIndications:T ransient acantholytic dermatosis (bisi) Apply topically 2 (two) times a day 80 g 1 04/20/2022 01/06/20 23 zolpidem (AMBIEN) 10 mg tabletIndications: Neutropenia, unspecified type (HCC) Take 1 tablet (10 mg total) by mouth nightly 30 tablet 3 01/13/2022 05/17/20 22 documented as of this encounter Discharge Disposition Disposition Code Departure Means Destination Discharge to home or self care documented in this encounter Plan of Treatment Not on file documented as of this encounter Procedures Procedure Name Priority Date/Time Associated Diagnosis Comments US BREAST LEFT LIMITED Schedule Routine, Read Routine (OP Routine) 04/28/2022 1:06 PM CDT Breast pain, left documented in this encounter Results * US Breast Left Limited (04/28/2022 1:06 PM CDT) Anatomical Region Laterality Modality Breast Left Ultrasound 04/28/2022 1:09 PM CDT Impressions 04/28/2022 1:09 PM CDT BI-RADS code one-negative No mammographic or sonographic evidence of malignancy Electronically signed by: Dali Manuel M.D. Narrative 04/28/2022 1:09 PM CDT EXAM: ??Bilateral 3-D tomosynthesis diagnostic mammogram and limited left breast ultrasound HISTORY: ??Several weeks of focal left breast tenderness at 6:00. Tenderness is improving COMPARISON: ??Prior mammograms FINDINGS: Bilateral full 2-D implant views and bilateral 3-D implant displacement views were performed. ??Sonography of the left breast at 6:00 was performed. There are bilateral subpectoral saline implants which are intact. There is heterogeneously dense breast tissue that decreases the sensitivity of mammography. There is no focal mass, distortion or suspicious calcification in either breast. Sonography of the area of tenderness in the left breast from 5-7 o'clock shows normal fibroglandular breast tissue overlying left breast implant. ??Minimal ductal ectasia is seen at 6:00 at 1 to 6 cm from the nipple but no intraductal soft tissue or debris is seen. Clinical follow-up for left breast tenderness is recommended. ??Unless a new clinical problem arises, annual screening mammography is recommended. ??These results were conveyed to the patient at the time of the study. us Taylor Whittington NP IMG MAMMO PROCEDURES Final Resu lt documented in this encounter Visit Diagnoses Diagnosis Breast pain, left documented in this encounter Care Teams Veneer Drier Tailer Relationship Specialty Start Date End Date Kacey Gonzalez MD PCP - General Family Medicine 04/07/21 06/08/23 Kristen Mancera MD Medical Oncologist/Database Administration Project Manager Medical Oncology 11/21/20 documented as of this encounter
--- OUTSIDE RECORDS SUMMARY | 2024-10-06 07:05 | XMS_ITS | Encounter Summary ---
Author Organization [facility] Address [address] [place] [address] Care Team Providers Care Camp Maintenance Supervisor Name Role Phone Kristen Mancera MD Unavailable Kacey Gonzalez MD Primary Care Provider [phone] Reason for Visit * Reason Onset Date Comments Medical Question/Miscellaneous 04/09/2022 Encounter Details Date Type Department Care Team (Late st Contact Info) Description 04/09/2022 Telephone [facility] [address] [address] Kacey Gonzalez MD 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 Gender Identity Not on file Sexual Orientation Not on file documented as of this encounter Miscellaneous Notes * Telephone Encounter - Katherine Hollins - 04/09/2022 2:44 PM CDT Notified patient to try other [facility] facility or outside [facility] and she can let us know where she goes * Telephone Encounter - Grayson Anglin - 04/09/2022 2:38 PM CDT Medical Question/Miscellaneous Caller???s Concern: Spoke with patient stated that she [facility] and they cannotget her in until may needs to know where she can go Caller???s Call back #:[phone] Does message need to be routed?Yes-Action Needed documented in this encounter Plan of Treatment Not on file documented as of this encounter Visit Diagnoses Not on filedocumented in this encounter Care Teams Camp Maintenance Supervisor Relationship Specialty Start Date End Date Kacey Gonzalez MD PCP - General Family Medicine 04/07/21 06/08/23 Kristen Mancera MD Medical Oncologist/Rag Baler Medical Oncology 11/21/20 documented as of this encounter
--- OUTSIDE RECORDS SUMMARY | 2024-10-06 07:05 | XMS_ITS | Encounter Summary ---
Author Organization [facility] Address [address] [facility] [address] [place] [id number] Care Team Providers Care Flat Drier Name Role Phone Kristen Mancera MD Unavailable Kacey Gonzalez MD Primary Care Provider [phone] [phone] Reason for Referral * Diagnostic Imaging (Routine) - Closed Specialty Diagnoses / Procedures Referred By Wilfred stewart Referred To Contact Diagnoses Breast pain, left Procedures Diagnostic Mammogram Bilateral W Papo W Implants Diagnostic Mammogram Bilateral W Papo Diagnostic Mammogram Left w Papo w Implants Taylor Whittington NP Phone: tel: fax: External Order Referral ID Status Reason Start Date Expiration Date Visits Re quested Visits Authorized [id number] Closed 04/09/2022 05/09/2023 1 1 * Diagnostic Imaging (Routine) - Closed Specialty Diagnoses / Procedures Referred By Wilfred stewart Referred To Contact Diagnoses Breast pain, left Procedures US Breast Left Limited Taylor Whittington NP Phone: tel: fax: External Order Referral ID Status Reason Start Date Expiration Date Visits Re quested Visits Authorized [id number] Closed 04/09/2022 05/09/2023 1 1 Reason for Visit * Reason Comments Pain in left breast Encounter Details Date Type Department Care Team (Late st Contact Info) Description 04/09/2022 1:30 PM CDT Office Visit [facility] [address] [address] Taylor Whittington NP [address] [facility] [address] [place] [address] Breast pain, left (Primary Dx) Social History Tobacco Use Types Packs/Day Years Used Date Smoking Tobacco: Never Smokeless Tobacco: Never PHQ-2 Answer Date Recorded PHQ-2 Total Score (If total score is 3 or more points, staff should administer the PHQ-9) 0 04/09/2022 Comments No Sex and Gender Information Value Date Recorded Sex Assigned at Not on file 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 Gender Identity Not on file Sexual Orientation Not on file documented as of this encounter Last Filed Vital Signs Vital Sign Reading Time Taken Comments Blood Pressure 110/70 04/09/2022 1:39 PM CDT Pulse 72 04/09/2022 1:39 PM CDT Temperature - - Respiratory Rate - - Oxygen Saturation 98% 04/09/2022 1:39 PM CDT Inhaled Oxygen Concentration - - Weight 55.8 kg (123 lb) 04/09/2022 1:39 PM CDT Height 157.5 cm (5' 2 ) 04/09/2022 1:39 PM CDT Body Mass Index 22.5 04/09/2022 1:39 PM CDT documented in this encounter Progress Notes * Taylor Whittington NP - 04/09/2022 1:30 PM CDT Images from the original note were not included. Subjective/Objective Patient ID: Karen Medeiros is a 51 y.o. female. Chief Complaint Pain in left breast HPI Patient presents for evaluation of left breast pain that started yesterday. Her accompaniesher to visit. Yesterday they were at the moves and she went to cross her arms over her chest and this is when she initially noted her left breast was very sore. Since then, it has worsened and is present all the time. She has bilateral breast implants over the muscle tissue, got them 18 years ago. Last screening mammogram was in 2019. She denies nipple discharge or dimpling. Past Medical History: Diagnosis Date ??? Anxiety 1999 Past Surgical History: Procedure Laterality Date ??? BREAST SURGERY April 2003 Family History: Family History Problem Relation Age of Onset ??? Non-Hodgkin's Lymphoma Mother ??? Cancer Mother ??? No Known Problems Father ??? No Known Problems Sister ??? No Known Problems Brother Social History: Social History Tobacco Use ??? Smoking status: Never Smoker ??? Smokeless tobacco: Never Used Substance and Sexual Activity ??? Drug use: Never ??? Sexual activity: Yes Partners: Male control/protection: I.U.D. Alcohol Use: Not on file No problems updated. Current Outpatient Medications on File Prior to Visit Medication Sig Dispense Refill ??? ALPRAZolam (XANAX) 0.25 mg tablet Take 1 tablet (0.25 mg total) by mouth 2 (two) times a day 30tablet 1 ??? triamcinolone (KENALOG) 0.1 % cream apply to affected areas of trunk twice daily as needed for redness/itching ??? zolpidem (AMBIEN) 10 mg tablet Take 1 tablet (10 mg total) by mouth nightly 30 tablet 3 ??? levonorgestrel (MIRENA) IUD 1 Device by intrauterine route. No current facility-administered medications on file prior to visit. Review of Systems: Review of Systems Constitutional: Negative for chills, fatigue and fever. Respiratory: Negative for cough, shortness of breath and wheezing. Cardiovascular: Negative for chest pain, palpitations and leg swelling. Gastrointestinal: Negative for abdominal pain, blood in stool, constipation, diarrhea, nausea and vomiting. Genitourinary: Negative for difficulty urinating, dysuria, frequency and urgency. Musculoskeletal: Left breast pain Neurological: Negative for dizziness, syncope, weakness, numbness and headaches. Psychiatric/Behavioral: Negative for dysphoric mood. The patient is not nervous/anxious. Physical Exam: BP 110/70 (BP Location: Left arm, Patient Position: Sitting) Pulse 72 Ht 157.5 cm (5' 2 ) Wt 55.8 kg (123 lb) SpO2 98% BMI 22.50 kg/m?? Physical Exam Constitutional: Appearance: Normal appearance. HENT: Head: Normocephalic and atraumatic. Eyes: Extraocular Movements: Extraocular movements intact. Pulmonary: Effort: Pulmonary effort is normal. Chest: Chest wall: No deformity. Breasts: Left: Tenderness present. No swelling, inverted nipple, nipple discharge or skin change. Skin: General: Skin is warm and dry. Neurological: General: No focal deficit present. Mental Status: She is alert and oriented to person, place, and time. Psychiatric: Mood and Affect: Mood normal. Behavior: Behavior normal. Assessment/Plan Diagnoses and all orders for this visit: Breast pain, left (Primary) Assessment & Plan: Will get diagnostic and US left breast. Follow up pending results. Orders: - US Breast Left Limited; Future - Diagnostic Mammogram Bilateral W Papo; Future Taylor Whittington NP Cosigned by Kacey Gonzalez MD at 04/09/2022 3:17 PM CDT documented in this encounter Miscellaneous Notes * Assessment & Plan Note - Taylor Whittington NP - 04/09/2022 2:43 PM CDT Associated Problem(s): Breast pain, left (Resolved 05/04/2023) Will get diagnostic and US left breast. Follow up pending results. documented in this encounter Plan of Treatment Not on file documented as of this encounter Results * US Breast Left [...] NP IMG MAMMO PROCEDURES Final Resu lt * Diagnostic Mammogram Bilateral W Papo W Implants (04/28/2022 12:45 PM CDT) Anatomical Region Laterality Modality Breast Bilateral Mammography 04/29/2022 7:18 AM CDT Impressions 04/29/2022 7:18 AM CDT BI-RADS code one-negative No mammographic or sonographic evidence of malignancy Electronically signed by: Dali Manuel M.D. Narrative 04/29/2022 7:18 AM CDT EXAM: ??Bilateral 3-D tomosynthesis diagnostic mammogram [...] this encounter Visit Diagnoses Diagnosis Breast pain, left- Primary Breast pain, left Breast pain, left documented in this encounter Care Teams Flat Drier Relationship Specialty Start Date End Date Kacey Gonzalez MD PCP - General Family Medicine 04/07/21 06/08/23 Kristen Mancera MD Medical Oncologist/English Drawer Medical Oncology 11/21/20 documented as of this encounter
--- OUTSIDE RECORDS SUMMARY | 2024-10-06 07:05 | XMS_ITS | Encounter Summary ---
Author Organization [facility] Address [address] [place] [address] Phone Care Team Providers Care Accounts Receivable Specialist Name Role Phone Kristen Mancera MD Unavailable Kacey Gonzalez MD Primary Care Provider [phone] Encounter Details Date Type Department Care Team (Late st Contact Info) Description 06/26/2021 10:45 AM CDT Lab [facility] [address] [facility] 7th [place] [address] [place] [address] Kristen Mancera MD [address] DIV IM BONE MARROW TRANSPLANT, [address] [place], [place] [id number] Neutropenia, unspecified type (HCC); Annual physical exam Discharge Disposition: Discharge to home or self care Social History Tobacco Use Types Packs/Day Years Used Date Smoking Tobacco: Never Smokeless Tobacco: Never PHQ-2 Answer Date Recorded PHQ-2 Total Score (If total score is 3 or more points, staff should administer the PHQ-9) 0 04/07/2021 Comments No Sex and Gender Information Value Date Recorded Sex Assigned at Not on file Legal 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 3 month average blood sugar is very normal. ,cholesterol is very mildly elevated but not concerning at this time. No med changes needed at this time KM documented in this encounter Plan of Treatment Not on file documented as of this encounter Procedures Procedure Name Priority Date/Time Associated Diagnosis Comments HEMOGLOBIN A1C Routine 06/26/2021 10:57 AM CDT Annual physical exam EGFR Routine 06/26/2021 10:51 AM CDT Neutropenia, unspecified type (HCC) DIFFERENTIAL AUTO Routine 06/26/2021 10: 51 AM CDT Neutropenia, unspecified type (HCC) CBC WITH AUTO DIFFERENTIAL Routine 06/26/2021 10:51 AM CDT Neutropenia, unspecified type (HCC) LACTATE DEHYDROGENASE Routine 06/26/2021 10:51 AM CDT Neutropenia, unspecified type (HCC) LIPID PANEL Routine 06/26/2021 10:51 AM CDT Annual physical exam COMPREHENSIVE METABOLIC PANEL Routine 06/26/2021 10:51 AM CDT Neutropenia, unspecified type (HCC) documented in this encounter Results * Hemoglobin A1c (06/26/2021 10:57 AM CDT) Hgb A1C 4.5 4.0 - 5.6 % JAG YANG Estimated Average Glucose 82 mg/dL JAG YANG Comment: The ADA recommends reporting an estimated Average Glucose (eAG) with all Hemoglobin A1c results using the equation derived from a study of 507 normal and diabetic adults. ??Minority populations were underrepresented and children were not included. ?? (Diabetes Care 2020; 43(S1): S66-S76). ??The eAG is not equivalent to a fasting glucose. Blood 06/26/2021 10:5 7 AM CDT 06/26/2021 11:08 AM CDT us Kacey Gonzalez MD LAB BLOOD ORDERABLES Anat blackmon Result Performing Organization Address City/[facility] Co de Phone Number [facility] [address] [facility] Department [place] [address] * eGFR (06/26/2021 10:51 AM CDT) eGFR >90 90 - 130 mL/min/1.7 3 m2 [facility] Comment: Interpretive Data Reference Interval Normal ?>/= 90 mL/min/1.73m2 Mildly decreased* ? 60 - 89 mL/min/1.73m2 Mildly to moderately decreased ?45 - 59 mL/min/1.73m2 Moderately to severely decreased ??30 - 44 mL/min/1.73m2 Severely decreased ?15 - 29 mL/min/1.73m2 Kidney Failure ?< 15 ??mL/min/1.73m2 *Relative to young adult level Estimated glomerular filtration rate is determined by the CKD-EPI equation recommended by the National Kidney Foundation (KDIGO 2012 Clinical Practice Guideline for the Evaluation and Management of Chronic Kidney Disease. Kidney Intnl Suppl Oct 2012;3:1). The CKD-EPI equation should not be used for patients with unstable renal function and has not been validated in children and those over 70. Current interpretive data was last reviewed 2020 Testing performed by: [facility], [address] [place] [phone] Blood 06/26/2021 10:5 1 AM CDT 06/26/2021 10:55 AM CDT us Kristen Mancera MD LAB BLOOD ORDERABLES Final Resul t [facility] [address] [facility] Department [place] [address] * (ABNORMAL) Differential, auto (06/26/2021 10:51 AM CDT) Neutrophil abs 1.7(L) 1.8 - 6.6 K/cumm CERNER BJ Comment:Testing performed by : [facility], [address] [place] [phone] Lymphocyte abs 1.7 1.2 - 3.3 K/cumm CERNER BJ Comment:Testing performed by : [facility], [address] [place] [phone] Monocyte abs 0.5 0.2 - 1.2 K/cumm CERNER BJ Comment:Testing performed by : [facility], [address] [place] [phone] Eosinophil abs 0.1 0.0 - 0.5 K/cumm CERNER BJ Comment:Testing performed by : [facility], [address] [place] [phone] Basophil abs 0.1 0.0 - 0.2 K/cumm CERNER BJ Comment:Testing performed by : [facility], [address] [place] [phone] Neutrophil pct 41.7 % CERNER BJ Comment: Interpretive Data Percent cell count reference ranges are not reported, since discordance with absolute values may lead to misinterpretation of CBC data. Current Interpretive Data was last revised on 2018. Testing performed by: [facility], [address] [place] [phone] Lymphocyte pct 41.6 % C[facility]ER BJ Comment: Interpretive Data Percent cell count reference ranges are not reported, since discordance with absolute values may lead to misinterpretation of CBC data. Current Interpretive Data was last revised on 2018. Testing performed by: [facility], [address] [place] [phone] Monocyte pct 11.4 % C[facility]ER [facility] Comment:Testing performed by : [facility], [address] [place] [phone] Eosinophil pct 3.5 % CERNER [facility] Comment:Testing performed by : [facility], [address] [facility] [phone] Basophil pct 1.8 % [facility] Comment:Testing performed by : [facility], [address] [facility] [phone] Blood 06/26/2021 10:5 1 AM CDT 06/26/2021 10:55 AM CDT us Kristen Mancera MD LAB BLOOD ORDERABLES Final Resul t [facility] [address] [facility] Department [place] [address] * (ABNORMAL) Lipid panel (06/26/2021 10:51 AM CDT) Cholesterol 222(H) 30 - 199 mg/dL [facility] Comment: Interpretive Data Ages < or = [...] Data was last revised on 2018. Triglycerides 58 <=149 mg/dL [facility] Comment: Interpretive Data Ages < or = [...] revised on 2018. HDL 83 >=40 mg/dL [facility] Comment: Interpretive Data Ages < or = [...] was last revised on 2018. LDL, calculated 127 <=129 mg/dL [facility] Comment: Interpretive Data Ages < or = [...] was last revised on 2018. Non-HDL Cholesterol 139 mg/dL JAG YANG Comment: Interpretive Data Ages < or = [...] last revised on 2018. Chol/HDL ratio 3 JAG YANG Blood 06/26/2021 10:5 1 AM CDT 06/26/2021 1:30 PM CDT us Kacey Gonzalez MD LAB BLOOD ORDERABLES Anat l Result JAG YANG [facility] Department of Laboratories [place], [place] [id number] * (ABNORMAL) Comprehensive metabolic panel (06/26/2021 10:51 AM CDT) Sodium 139 135 - 145 mmol/L JAG YANG Comment:Testing performed by : [facility], [address] [place] [phone] Potassium, pl 4.8 3.3 - 4.9 mmol/L JAG YANG Comment:Testing performed by : [facility], [address] [place] [phone] Chloride 105 97 - 110 mmol/L JAG YANG Comment:Testing performed by : [facility], [address] [place] [phone] CO2 27 22 - 32 mmol/L JAG YANG Comment:Testing performed by : [facility], [address] [place] [phone] Anion gap 7 2 - 15 mmol/L CERNER BJ Comment:Testing performed by : [facility], [address] [place] [phone] BUN 9 8 - 25 mg/dL CERNER BJ Comment:Testing performed by : [facility], [address] [place] [phone] Creatinine 0.61 0.60 - 1.10 mg/dL CERNER BJ Comment:Testing performed by : [facility], [address] [place] [phone] Glucose 83 70 - 199 mg/dL CERNER BJ Comment: [...] was last revised 2017. Testing performed by: [facility], [address] [place] [phone] Calcium 9.6 8.5 - 10.3 mg/dL CERNER BJ Comment:Testing performed by : [facility], [address] [place] [phone] Bilirubin, total 0.5 0.1 - 1.2 mg/dL CERNER BJ Comment:Testing performed by : [facility], [address] [place] [phone] Protein, pl 7.4 6.5 - 8.5 g/dL CERNER BJ Comment:Testing performed by : [facility], [address] [place] [phone] Albumin 4.6 3.5 - 5.0 g/dL CERNER BJ Comment:Testing performed by : [facility], [address] [place] [phone] Alk phos 39(L) 40 - 130 Units/L C[facility]ER BJ Comment:Testing performed by : [facility], [address] [place] [phone] ALT 7 7 - 45 Units/L [facility] Comment:Testing performed by : [facility], [address] [place] [phone] AST 16 10 - 45 Units/L [facility] Comment:Testing performed by : [facility], [address] [place] [phone] Blood 06/26/2021 10:5 1 AM CDT 06/26/2021 10:55 AM CDT Kristen Mancera MD LAB BLOOD ORDERABLES Final Resul t Performing Organization Address City/[facility]/ZIP Co de Phone Number [facility] Department [place] [address] * Lactate dehydrogenase (LD) (06/26/2021 10:51 AM CDT) Pathologist [facility] Lactate dehydrogenase (LDH) 147 100 - 250 Units/L [facility]AG [facility] Comment:Testing performed by : [facility], [address] [place] [phone] Blood 06/26/2021 10:5 1 AM CDT 06/26/2021 10:55 AM CDT us Kristen Mancera MD LAB BLOOD ORDERABLES Final Resul t Performing Organization Address City/[facility] de Phone Number [facility] Department [place] [address] * CBC with auto differential (06/26/2021 10:51 AM CDT) WBC 4.0 3.8 - 9.8 K/cumm [facility]AG [facility] Comment:Testing performed by : [facility], [address] [place] [phone] Hgb 13.4 12.1 - 15.1 g/dL [facility] Comment:Testing performed by : [facility], [address] [place] [phone] Hct 39.5 36.1 - 44.3 % CERNER BJ Comment:Testing performed by : [facility], [address] [place], [place] [phone] Plt 231 140 - 440 K/cumm CERLIZZY BJ Comment:Testing performed by : [facility], [address] [place], [place] [phone] MPV 8.3 6.8 - 10.4 fL [facility] Comment:Testing performed by : [facility], [address] [place], [place] [phone] RBC 4.15 3.90 - 5.00 M/cumm CERLIZZY BJ Comment:Testing performed by : [place] [phone] MCV 95.3 80.0 - 97.6 fL [facility]AG [facility] Comment:Testing performed by : [facility], [address] [place] [phone] MCH 32.3 26.7 - 33.7 pg [facility] Comment:Testing performed by : [facility], [address] [place] [phone] MCHC 33.9 32.7 - 35.5 g/dL [facility]AG [facility] Comment:Testing performed by : [facility], [address] [place], [place] [phone] RDW CV 12.4 11.8 - 14.6 % [facility] Comment:Testing performed by : [address] [phone] NRBC abs 0.00 0.00 - 0.01 K/cumm [facility]AG [facility] Comment:Testing performed by : [facility], [address] [place] [phone] Blood 06/26/2021 10:5 1 AM CDT 06/26/2021 10:55 AM CDT us Kristen Mancera MD LAB BLOOD ORDERABLES Final Resul t [facility] Department [place] [address] documented in this encounter Visit Diagnoses Diagnosis Neutropenia, unspecified type (HCC) Annual physical exam Routine general medical examination at a health care facility documented in this encounter Care Teams Accounts Receivable Specialist Relationship Specialty Start Date End Date Kacey Gonzalez MD PCP - General Family Medicine 04/07/21 06/08/23 Kristen Mancera MD Medical Oncologist/Shopper'S Aide Medical Oncology 11/21/20 documented as of this encounter
--- OUTSIDE RECORDS SUMMARY | 2024-10-06 07:05 | XMS_ITS | Encounter Summary ---
Author Organization [facility] Healthcare Address [address] [place] [address] Care Team Providers Care Steel Estimator Name Role Phone Kristen Mancera MD Unavailable Kacey Gonzalez MD Primary Care Provider [phone] Reason for Referral * Diagnostic Imaging (Routine) [...] Expiration Date Visits Re quested Visits Authorized [id number] Closed 04/09/2022 05/09/2023 1 1 Reason for [...] Expiration Date Visits Re quested Visits Authorized [id number] Closed 04/09/2022 05/09/2023 1 1 Encounter Details Date Type Department Care Team (Latest Contact Info) Description 04/28/2022 12:11 PM CDT - 04/28/2022 11:59 PM CDT Hospital Encounter 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 Gender Identity Not on file Sexual Orientation [...] Procedure Name Priority Date/Time Associated Diagnosis Comments DIAGNOSTIC MAMMOGRAM BILATERAL W PAPO W IMPLANTS Schedule Routine, Read Routine (OP Routine) 04/28/2022 12:45 PM CDT Breast pain, left documented in this encounter Results * Diagnostic Mammogram Bilateral W Papo W [...] left documented in this encounter Care Teams Steel Estimator Relationship Specialty Start Date End Date Kacey Gonzalez MD PCP - General Family Medicine 04/07/21 06/08/23 Kristen Mancera MD Medical Oncologist/Neuropsychologist Medical Oncology 11/21/20 documented as of this encounter
--- OUTSIDE RECORDS SUMMARY | 2024-10-06 07:05 | XMS_ITS | Encounter Summary ---
Author Organization [facility] Address [address] [place] [address] Phone Care Team Providers Care College Professor Name Role Phone Kristen Mancera MD Unavailable Kacey Gonzalez MD Primary Care Provider [phone] [phone] Encounter Details Date Type Department Care Team (Late st Contact Info) Description 06/24/2022 Telephone [facility] Oncology 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 documented in this encounter Plan of Treatment Not on file documented as of this encounter Visit Diagnoses Not on filedocumented in this encounter Care Teams College Professor Relationship Specialty Start Date End Date Kacey Gonzalez MD PCP - General Family Medicine 04/07/21 06/08/23 Kristen Mancera MD Medical Oncologist/Lang Interpreter Medical Oncology 11/21/20 documented as of this encounter
--- OUTSIDE RECORDS SUMMARY | 2024-10-06 07:05 | XMS_ITS | Encounter Summary ---
Author Organization [facility] Address [address] [place] [address] Care Team Providers Care Respiratory Support Technician Name Role Phone Kristen Mancera MD Unavailable Kacey Gonzalez MD Primary Care Provider [phone] [phone] Encounter Details Date Type Department Care Team (Latest Contact Info) Description 06/25/2022 9:32 AM CDT - 06/25/2022 11:59 PM CDT Hospital Encounter [facility] Advanced Medicine [facility] ([facility]) [address] [place] [id number] Discharge Disposition: Discharge to home or self [...] file 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
--- OUTSIDE RECORDS SUMMARY | 2024-10-06 07:05 | XMS_ITS | Encounter Summary ---
Author Organization [facility] Address [address] [place] [address] Care Team Providers Care Legal Nurse Consultant Name Role Phone Kristen Mancera MD Unavailable Kacey Gonzalez MD Primary Care Provider [phone] [phone] Reason for Visit * Reason Comments Preventative Care Encounter Details Date Type Department Care Team (Late st Contact Info) Description 04/20/2022 1:30 PM CDT Office Visit [facility] [address] [address] Kacey Gonzalez MD [address] [place] [id number] Annual physical exam (Primary Dx); Neutropenia, unspecified type (HCC); Anxiety; Primary insomnia; Screen for colon cancer; Encounter for vaccination; Transient acantholytic dermatosis (bisi) Social History Tobacco Use Types Packs/Day Years Used Date Smoking Tobacco: Never Smokeless Tobacco: Never PHQ-2 Answer Date Recorded PHQ-2 Total Score (If total score is 3 or more points, staff should administer the PHQ-9) 0 04/20/2022 Comments No Sex and Gender Information Value Date Recorded Sex Assigned at Not on file Legal Sex 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 Gender Identity Not on file Sexual Orientation Not on file documented as of this encounter Last Filed Vital Signs Vital Sign Reading Time Taken Comments Blood Pressure 114/72 04/20/2022 1:24 PM CDT Pulse 64 04/20/2022 1:24 PM CDT Temperature - - Respiratory Rate - - Oxygen Saturation 98% 04/20/2022 1:24 PM CDT Inhaled Oxygen Concentration - - Weight 56.5 kg (124 lb 9.6 oz) 04/20/2022 1:24 P M CDT Height 157.5 cm (5' 2.01 ) 04/20/2022 1:24 PM CD T Body Mass Index 22.78 04/20/2022 1:24 PM CDT documented in this encounter Patient Instructions * Patient Instructions* Kacey Gonzalez MD - 04/20/2022 1:30 PM CDT Fasting labs (no food after midnight, ok to take your meds prior to blood draw, black coffee, plaintea and water are also ok) to be done with Dr Mancera's labs. Tell the phlebotomy lab assistant to draw both Carlos and Fiordaliza labs. Call OBGYN office to set up your yearly well woman exam. 2021 is your yr to have the IUD exchanged Cologuard ordered Shingles #1 today. #2 in 2-6 months documented in this encounter Ordered Prescriptions Prescription Sig Dispense Quantity Refills Last Filled Start Date End Date triamcinolone (KENALOG) 0.1 % creamIndications:T ransient acantholytic dermatosis (bisi) Apply topically 2 (two) times a day 80 g 1 04/20/2022 3 documented in this encounter Progress Notes * Kacey Gonzalez MD - 04/20/2022 1:30 PM CDT Images from the original note were not included. Subjective: Patient is a 51 y.o. female who presents for physical Past Medical History: Diagnosis Date ??? Anxiety 1999 Current Outpatient Medications on File Prior to Visit Medication Sig Dispense Refill ??? ALPRAZolam (XANAX) 0.25 mg tablet Take 1 tablet (0.25 mg total) by mouth 2 (two) times a day 30tablet 1 ??? levonorgestrel (MIRENA) IUD 1 Device by intrauterine route. ??? zolpidem (AMBIEN) 10 mg tablet Take 1 tablet (10 mg total) by mouth nightly 30 tablet 3 ??? [DISCONTINUED] triamcinolone (KENALOG) 0.1 % cream apply to affected areas of trunk twice dailyas needed for redness/itching No current facility-administered medications on file prior to visit. Allergies Allergen Reactions ??? Ibuprofen Rash ??? Tolmetin Unknown Past Surgical History: Procedure Laterality Date ??? BREAST SURGERY April 2003 Family History Problem Relation Age of Onset ??? Non-Hodgkin's Lymphoma Mother ??? Cancer Mother ??? No Known Problems Father ??? No Known Problems Sister ??? No Known Problems Brother Today pt complains of: L lower breast pain- saw Taylor recently. Hx of implants. [facility] to [facility]. Soonest appt set for 05/2022 No infectious sxs, shape feels slightly asymetrical Still having periods, irregular, has IUD Hemorrhoid flares PMHx: Insomnia- ambien 10mg, stable for yrs, no SE, doing well with this Anxiety- xanax half of a 0.25mg PRN, anxiety with driving. Takes 1/2 tab per week, #30 would last 2months Neutropenia- caught when she was getting blood work for accutane, sees Heme Dr Mancera q6mo with labs. Never needed BM bx. Infections seem to progress faster for her. 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 HENT: Negative for hearing loss, rhinorrhea and trouble swallowing. Eyes: Negative for visual disturbance. Respiratory: Negative for cough and shortness of breath. Cardiovascular: Negative for chest pain, palpitations and leg swelling. Gastrointestinal: Negative for abdominal pain, blood in stool, constipation, diarrhea and nausea. Genitourinary: Negative for dysuria, frequency, menstrual problem and pelvic pain. Musculoskeletal: Negative for arthralgias and myalgias. Skin: Negative for rash. Neurological: Negative for dizziness and headaches. Psychiatric/Behavioral: Negative for suicidal ideas. Breast: Negative for lump(s). Objective: Vitals BP 114/72 Pulse 64 Ht 157.5 cm (5' 2.01 ) Wt 56.5 kg (124 lb 9.6 oz) SpO2 98% BMI 22.78 kg/m?? Physical Exam Vitals and nursing note reviewed. Constitutional: General: She is not in acute distress. Appearance: Normal appearance. HENT: Head: Normocephalic and atraumatic. Mouth/Throat: Mouth: Mucous membranes are moist. Pharynx: Oropharynx is clear. Eyes: Extraocular Movements: Extraocular movements intact. Cardiovascular: Rate and Rhythm: Normal rate and regular rhythm. Heart sounds: No murmur heard. Pulmonary: Effort: Pulmonary effort is normal. Breath sounds: Normal breath sounds. No wheezing or rales. Abdominal: General: Bowel sounds are normal. There is no distension. Palpations: Abdomen is soft. Tenderness: There is no abdominal tenderness. Musculoskeletal: Cervical back: Neck supple. Comments: No lower extremity edema Lymphadenopathy: Cervical: No cervical adenopathy. Skin: General: Skin is warm and dry. Findings: No rash. Comments: Small scattered raised papules on abdomen Neurological: General: No focal deficit present. Mental Status: She is alert and oriented to person, place, and time. Psychiatric: Mood and Affect: Mood normal. Behavior: Behavior normal. Assessment/Plan: Annual physical exam Health Maintenance: OBGYN with Dr Cardona at [facility] Pap (21-65): 11/2020 wnl control method: mirena IUD, due for replacement in 2021 Mammo (50-74): 07/2020, has implants Dexa (q2y postmenopausal female)- n/a Colonoscopy (50-75): age 51 Lung CA (55-80 with 30 pack yr hx currently smoking or quit within 15yrs): n/a Hep C: will discuss at f/u OV STD screening: no Labs: ordered Immunizations: Shingles #1 today, PCV13/PPSV23 age 66, TDaP 2020, flu 2020, covid x3 Anxiety Stable on xanax, takes half of a 0.25mg PRN for anxiety with driving. Takes 1/2 tab per week, #30 would last 2 months. Call if anxiety worsens to discuss daily maintenance meds if needed. Neutropenia q6mo labs and f/u with [facility] Dr Mancera. Stable. Often needs ABx earlier on in infection courses than typical due to this. Insomnia ambien 10mg qhs Screen for colon cancer - Stool DNA - Cologuard; Future - Stool DNA - Cologuard Encounter for vaccination - Varicella-zoster HZV IM [place]'s Skin rash, refilled triamcinolone for redness and itching Follow up in 1yr for physical or sooner if needed. This note was written with the assistance of dictation technology. Please forgive any transcriptionerrors. Kacey Gonzalez MD Family Medicine 04/20/22 documented in this encounter Miscellaneous Notes * Addendum Note - Korey Arredondo - 04/20/2022 1:30 PM CDTAddended by: KOREY ARREDONDO on: 07/16/2022 10:32 AM Modules accepted: Orders * Addendum Note - Korey Arredondo - 04/20/2022 1:30 PM CDTAddended by: KOREY ARREDONDO on: 07/16/2022 10:32 AM Modules accepted: Orders documented in this encounter Plan of Treatment Not on file documented as of this encounter Procedures Procedure Name Priority Date/Time Associated Diagnosis Comments STOOL DNA ? COLOGUARD Routine 05/05/2022 10:00 AM CDT Screen for colon cancer documented in this encounter Results * Hemoglobin A1c (07/16/2022 10:56 AM CDT) Hgb A1C 4.4 4.0 - 5.6 % JAG YANG Estimated Average Glucose 80 mg/dL JAG YANG Comment: The ADA recommends [...] MD LAB BLOOD ORDERABLES Anat blackmon Result [facility] [address] [facility] Department of Laboratories [place], [place] [id number] * (ABNORMAL) Lipid panel (07/16/2022 10:40 AM CDT) Cholesterol 222(H) 30 - 199 mg/dL JAG YANG Comment: Interpretive Data Ages [...] 2018. Triglycerides 42 <=149 mg/dL JAG [facility] Comment: Interpretive Data Ages < or [...] 2018. HDL 82 >=40 mg/dL JAG [facility] Comment: Interpretive Data Ages < or [...] on 2018. LDL, calculated 132(H) <=129 mg/dL JAG [facility] Comment: Interpretive Data Ages < or [...] revised on 2018. Non-HDL Cholesterol 140 mg/dL [facility] Comment: Interpretive Data Ages < or [...] last revised on 2018. Chol/HDL ratio 3 [facility] Blood 07/16/2022 10:4 0 AM CDT 07/16/2022 11:33 AM CDT Kacey Gonzalez MD LAB BLOOD ORDERABLES Anat l Result Performing Organization Address City/[facility]/ZIP Co de Phone Number [facility] Department [place] [address] * TSH reflex to free T4 (07/16/2022 10:40 AM CDT) TSH 0.71 0.30 - 4.20 mcIUnit/mL [facility] Blood 07/16/2022 10:4 0 AM CDT 07/16/2022 11:33 AM CDT Kacey Gonzalez MD LAB BLOOD ORDERABLES Anat l Result Performing Organization Address [facility] de Phone Number [facility] Department [place] [address] * Stool DNA - Cologuard (05/05/2022 10:00 AM CDT) Stool DNA - Cologuard Negative Negative [employer] (CLIA #:[id number]) Comment: NEGATIVE TEST RESULT. A negative Cologuard [...] cancer. ??Following a negative Cologuard result, the [place] Cancer Society and U.S. Multi-Society Task Force screening guidelines recommend a Cologuard re-screening interval of 3 years. References: [place] [employer] Society Guideline for Colorectal Cancer Screening: https://www.cancer.org/cancer/ueqnb-nsvyrn-vnfmmq/eoezdkbpc-bzervjtcu-eunbxgc/ac s-rec ommendations.html.; Doc DK, Shelley DAVILA, Shyam RemyK, Colorectal Cancer Screening: Recommendations for Physicians and Patients from the U.S. Multi-Society Task Force on Colorectal Cancer Screening , Am J Gastroenterology 2017; 112:9957-8413. TEST DESCRIPTION: Composite algorithmic analysis of stool [...] (Aiden Manning al, N Engl J Med 2014;370(14):9027-9023.) Cologuard may produce a false negative or false positive result (no colorectal cancer or precancerous polyp present at colonoscopy follow up). A negative Cologuard test result does not guarantee the absence of CRC or advanced adenoma (pre-cancer). The current Cologuard screening interval is every 3 years. ([place] Cancer Society and U.S. Multi-Society Task Force). Cologuard performance data in a 10,000 patient pivotal study using colonoscopy as the reference method can be accessed at the following location: www.[employer].Yumber/results. Additional description of the Cologuard test process, warnings and precautions can be found at www.Novus[employer].Yumber. Stool 05/05/2022 10:0 0 AM CDT 05/06/2022 1:51 PM CDT Kacey Gonzalez MD LAB BODY FLUIDS AND STOOL S ORDERABLES Final Result [facility] (CLIA #:[id number]) [place] [place] [address] documented in this encounter Visit Diagnoses Diagnosis Annual physical exam- Primary Routine general medical examination at a health care facility Neutropenia, unspecified type (HCC) Anxiety Anxiety state, unspecified Primary insomnia Persistent disorder of initiating or maintaining sleep Screen for colon cancer Special screening for malignant neoplasms, colon Encounter for vaccination Transient acantholytic dermatosis (bisi) documented in this encounter Discontinued Medications Medication Sig Discontinue Reason Start Date End Da te triamcinolone (KENALOG) 0.1 % creamIndications:Neutrop enia, unspecified type (HCC) apply to affected areas of trunk twice daily as needed for redness/itching Reorder 02/11/2017 04/20/2022 documented as of this encounter Orders Immunization/Injection Count Last Ordered Date First Ordered Date ZOSTER (SHINGLES) HZV IM 1 04/20/2022 documented in this encounter Care Teams Legal Nurse Consultant Relationship Specialty Start Date End Date Kacey Gonzalez MD PCP - General Family Medicine 04/07/21 06/08/23 Kristen Mancera MD Medical Oncologist/Popped Corn Oven Attendant Medical Oncology 11/21/20 documented as of this encounter
--- OUTSIDE RECORDS SUMMARY | 2024-10-06 07:05 | XMS_ITS | Encounter Summary ---
Author Organization [facility] Address [address] [place] [address] Care Team Providers Care Treasury Specialist Name Role Phone Kristen Mancera MD Unavailable Kacey Gonzalez MD Primary Care Provider [phone] [phone] Reason for Visit * Reason Onset Date Comments Med Refill 05/14/2022 Encounter Details Date Type Department Care Team (Late st Contact Info) Description 05/14/2022 Telephone [facility] [address] [place] [phone] Sagrario Shi MA Med Refill Social History Tobacco Use Types Packs/Day Years Used Date Smoking Tobacco: Never Smokeless Tobacco: Never PHQ-2 Answer Date Recorded PHQ-2 Total Score (If total score is 3 or more points, staff should administer the PHQ-9) 0 04/20/2022 Comments No Sex and Gender Information Value Date Recorded Sex Assigned at Not on file 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 Gender Identity Not on file Sexual Orientation Not on file documented as of this encounter Miscellaneous Notes * Telephone Encounter - Sagrario Shi MA - 05/14/2022 4:27 PM CDT Error documented in this encounter Plan of Treatment Not on file documented as of this encounter Visit Diagnoses Diagnosis Neutropenia, unspecified type (HCC) documented in this encounter Care Teams Treasury Specialist Relationship Specialty Start Date End Date Kacey Gonzalez MD PCP - General Family Medicine 04/07/21 06/08/23 Kristen Mancera MD Medical Oncologist/Applications Specialist Medical Oncology 11/21/20 documented as of this encounter
--- OUTSIDE RECORDS SUMMARY | 2024-10-06 07:05 | XMS_ITS | Encounter Summary ---
Author Organization [facility] Medical [facility] Address [address] [place] [address] Care Team Providers Care Adjuster Arbitrator Name Role Phone Kristen Mancera MD Unavailable Kacey Gonzalez MD Primary Care Provider [phone] Reason for Visit * Reason Onset Date Comments Breast Pain 04/09/2022 Encounter Details Date Type Department Care Team (Late st Contact Info) Description 04/09/2022 Nurse Triage [facility] [address] [address] [address], [place] [address] Kacey Gonzalez MD [facility] [facility] [address], [place] [address] Social History Tobacco Use Types Packs/Day Years Used Date Smoking Tobacco: Never Smokeless Tobacco: Never PHQ-2 Answer Date Recorded PHQ-2 Total Score (If total score is 3 or more points, staff should administer the PHQ-9) 0 04/09/2022 Comments No Sex and Gender Information Value Date Recorded Sex Assigned at Not on file Legal Sex Female 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 Patient wants to be seen Protocols used: BREAST [id number] 51 y/o pt c/o Left breast pain started last night when pt crossed her arms, feels tender and sore across bottom of breast. Has implants, works out daily, doesn't feel like muscle pain. Wants seen. Scheduled SDA today with DERICK Whittington at 1330. Denies rash or skin changes. * Telephone Encounter - Lucy Miller RN - 04/09/2022 10:50 AM CDT Regarding: Breast pain ----- Message from Sveta Marmolejo sent at 04/09/2022 10:12 AM CDT ----- Symptom Based Call Chief Complaint: Breast pain Did you review 911/Red Flag List?Yes Duration: 1 day Why was appointment not scheduled? Declined Caller's Callback #: [phone] Additional Comments: Patient is experiencing left breast pain. She has implants but never had this type of pain. Please contact patient to discuss. Does message need to be routed? Yes-Action Needed Symptoms:No (04/09/2022 10:10 AM)Exposure: No (04/09/2022 10:10 AM)Positive COVID-19 test within the last 10 days:No (04/09/2022 10:10 AM) documented in this encounter Plan of Treatment Not on file documented as of this encounter Visit Diagnoses Not on filedocumented in this encounter Care Teams Adjuster Arbitrator Relationship Specialty Start Date End Date Kacey Gonzalez MD PCP - General Family Medicine 04/07/21 06/08/23 Kristen Mancera MD Medical Oncologist/Pvc Monitor Medical Oncology 11/21/20 documented as of this encounter
--- OUTSIDE RECORDS SUMMARY | 2024-10-06 07:05 | XMS_ITS | Encounter Summary ---
Author Organization [facility] Address [address] [place] [address] Care Team Providers Care Retort Loader Name Role Phone Kristen Mancera MD Unavailable Kacey Gonzalez MD Primary Care Provider [phone] [phone] Encounter Details Date Type Department Care Team (Late st Contact Info) Description 04/29/2022 Telephone [facility] [address] [address] Kacey Gonzalez MD [address] [facility] [address] [address] Social History Tobacco Use Types Packs/Day Years Used Date Smoking Tobacco: Never Smokeless Tobacco: Never PHQ-2 Answer Date Recorded PHQ-2 Total Score (If total score is 3 or more points, staff should administer the PHQ-9) 0 04/20/2022 Comments No Sex and Gender Information Value Date Recorded Sex Assigned at Not on file Legal Sex Female 10:19 PM 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 No concerning findings. documented in this encounter Plan of Treatment Not on file documented as of this encounter Visit Diagnoses Not on filedocumented in this encounter Care Teams Retort Loader Relationship Specialty Start Date End Date Kacey Gonzalez MD PCP - General Family Medicine 04/07/21 06/08/23 Kristen Mancera MD Medical Oncologist/Lock And Dam Equipment Repairer Medical Oncology 11/21/20 documented as of this encounter
--- OUTSIDE RECORDS SUMMARY | 2024-10-06 07:06 | XMS_ITS | Encounter Summary ---
Author Organization [facility] Address [address] [facility] [address] [place] [address] Care Team Providers Care Chipper Machine Operator Name Role Phone Kristen Mancera MD Unavailable Kacey Gonzalez MD Primary Care Provider [phone] Reason for Visit * Reason Comments Establish Care Review Medications Encounter Details Date Type Department Care Team (Late st Contact Info) Description 04/07/2021 2:30 PM CDT Office Visit [facility] [address] [address] Kacey Gonzalez MD [facility] [address] [address] Encounter to establish care (Primary Dx); Annual physical exam; Anxiety; Encounter for vaccination; Neutropenia, unspecified type (CMS/HCC); Transient acantholytic dermatosis (bisi) Social History Tobacco Use Types Packs/Day Years Used Date Smoking Tobacco: Never Smokeless Tobacco: Never PHQ-2 Answer Date Recorded PHQ-2 Total Score (If total score is 3 or more points, staff should administer the PHQ-9) 0 04/07/2021 Comments No Sex and Gender Information Value Date Recorded Sex Assigned at Not on file 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 Gender Identity Not on file Sexual Orientation Not on file documented as of this encounter Last Filed Vital Signs Vital Sign Reading Time Taken Comments Blood Pressure 110/60 04/07/2021 1:58 PM CDT Pulse 72 04/07/2021 1:58 PM CDT Temperature - - Respiratory Rate - - Oxygen Saturation 98% 04/07/2021 1:58 PM CDT Inhaled Oxygen Concentration - - Weight 54.9 kg (121 lb) 04/07/2021 1:58 PM CDT Height 157.5 cm (5' 2 ) 04/07/2021 1:58 PM CDT Body Mass Index 22.13 04/07/2021 1:58 PM CDT documented in this encounter Patient Instructions * Patient Instructions* Kacey Gonzalez MD - 04/07/2021 2:30 PM CDT Fasting labs with Fiordaliza's labs in April TDaP today documented in this encounter Progress Notes * Kacey Gonzalez MD - 04/07/2021 2:30 PM CDT Images from the original note were not included. Subjective: Patient is a 50 y.o. female new patient who presents to establish care and discuss physical Past Medical History: Diagnosis Date ??? Anxiety 2000 Current Outpatient Medications on File Prior to Visit Medication Sig Dispense Refill ??? ALPRAZolam (XANAX) 0.25 mg tablet TAKE 1 TABLET BY MOUTH TWICE A DAY NEEDED FOR ANXIETY 1 ??? levonorgestrel (MIRENA) IUD 1 Device by intrauterine route. ??? triamcinolone (KENALOG) 0.1 % cream apply to affected areas of trunk twice daily as needed for redness/itching ??? zolpidem (AMBIEN) 10 mg tablet TAKE 1 TABLET AT BEDTIME. No current facility-administered medications on file prior to visit. Allergies Allergen Reactions ??? Ibuprofen Rash ??? Tolmetin Unknown Past Surgical History: Procedure Laterality Date ??? BREAST SURGERY April 2003 Family History Problem Relation Age of Onset ??? Non-Hodgkin's Lymphoma Mother ??? Cancer Mother ??? No Known Problems Father ??? No Known Problems Sister ??? No Known Problems Brother Today pt complains of: none PMHx: Insomnia- ambien 10mg, stable for yrs, no SE, doing well with this Anxiety- xanax half of a 0.25mg PRN, anxiety with driving. Takes 1/2 tab per week, #30 would last 2months Neutropenia- caught when she was getting blood work for accutane, sees Julius Mancera q6mo with labs. Never needed BM bx. Infections seem to progress faster for her. 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 Objective: Vitals BP 110/60 (BP Location: Left arm, Patient Position: Sitting) Pulse 72 Ht 157.5 cm (5' 2 ) Wt 54.9 kg (121 lb) SpO2 98% BMI 22.13 kg/m?? Physical Exam Vitals and nursing note [...] Affect: Mood normal. Behavior: Behavior normal. Assessment/Plan: 1. Encounter to establish care 2. Annual physical exam Health Maintenance: OBGYN with Dr Cardona at [facility] Pap (21-65): 11/2020 wnl control method: mirena IUD, due for replacement in 2021 Mammo (50-74): 07/2020 Dexa (q2y postmenopausal female)- n/a Colonoscopy (50-75): age 50 Lung CA (55-80 with 30 pack yr hx currently smoking or quit within 15yrs): n/a Hep C: will discuss at f/u OV STD screening: no Labs: ordered Immunizations: Shingles age 51, PCV13/PPSV23 age 66, TDaP 14yrs ago, flu 2019, covid UTD - Lipid panel; Future - Hemoglobin A1c; Future - Tdap vaccine greater than or equal to 7yo IM 3. Anxiety Stable on xanax, takes half of a 0.25mg PRN for anxiety with driving. Takes 1/2 tab per week, #30 would last 2 months 4. Encounter for vaccination - Tdap vaccine greater than or equal to 7yo IM 5. [place]'s disease- triamcinolone cream on trunk prn for rashes 6. Neutropenia q6mo labs and f/u with HemeOnc Dr Mancera. Stable. Often needs ABx earlier on in infection courses than typical due to this. Follow up in 1yr for physical or sooner if needed. My total encounter time on 04/07/2021 was 30 minutes which was spent in the activities documented inthe note. This includes time spent prior to the visit and after the visit in direct care of the patient. This time does not include time spent in any separately reportable services. This note was written with the assistance of dictation technology. Please forgive any transcriptionerrors. Kacey Gonzalez MD Family Medicine 04/08/21 documented in this encounter Miscellaneous Notes * Addendum Note - Acacia Chu MT - 04/07/2021 2:30 PM CDTAddended by: ACACIA CHU on: 06/26/2021 10:40 AM Modules accepted: Orders documented in this encounter Plan of Treatment Not on file documented as of this encounter Results * Hemoglobin A1c (06/26/2021 [...] MD LAB BLOOD ORDERABLES Anat blackmon Result [facility] Department [place] [address] * (ABNORMAL) Lipid panel (06/26/2021 10:51 AM CDT) [facility] Cholesterol 222(H) 30 - 199 mg/dL JAG [facility] Comment: Interpretive Data Ages < [...] revised on 2018. Triglycerides 58 <=149 mg/dL [facility] Comment: Interpretive Data Ages < [...] revised on 2018. HDL 83 >=40 mg/dL [facility] Comment: Interpretive Data Ages < [...] on 2018. LDL, calculated 127 <=129 mg/dL [facility] Comment: Interpretive Data Ages < [...] revised on 2018. Non-HDL Cholesterol 139 mg/dL [facility] Comment: Interpretive Data Ages < [...] revised on 2018. Chol/HDL ratio 3 JAG [facility] Blood 06/26/2021 10:5 1 AM CDT 06/26/2021 1:30 PM CDT Kacey Gonzalez MD LAB BLOOD ORDERABLES Anat lorri Result [facility] [address] [facility] Department [place] [address] documented in this encounter Visit Diagnoses Diagnosis Encounter to establish care- Primary Annual physical exam Routine general medical examination at a health care facility Anxiety Anxiety state, unspecified Encounter for vaccination Neutropenia, unspecified type (HCC) Transient acantholytic dermatosis (bisi) documented in this encounter Discontinued Medications Medication Sig Discontinue Reason Start Date End Da te tretinoin (RETIN-A) 0.025 % creamIndications:Neutrope marjorie, unspecified type (HCC) Apply no more than a pea-sized amount to clean, dry face once daily before bedtime. Therapy completed 02/11/2017 04/07/2021 documented as of this encounter Orders Immunization/Injection Count Last Ordered Date First Ordered Date TDAP VACCINE GREATER THAN OR EQUAL TO 7YO IM 1 04/07/2021 documented in this encounter Care Teams Chipper Machine Operator Relationship Specialty Start Date End Date Kacey Gonzalez MD PCP - General Family Medicine 04/07/21 06/08/23 Kristen Mancera MD Medical Oncologist/Water Commissioner Medical Oncology 11/21/20 documented as of this encounter
--- OUTSIDE RECORDS SUMMARY | 2024-10-06 07:06 | XMS_ITS | Encounter Summary ---
Author Organization [facility] Address [address] [place] [address] Phone Care Team Providers Care Occupational Health And Safety Adviser Name Role Phone Kristne Mancera MD Unavailable Kacey Gonzalez MD Primary Care Provider [phone] Encounter Details Date Type Department Care Team (Late st Contact Info) Description 06/26/2021 11:20 AM CDT Office Visit [facility] [address] [facility] 7th Floor, [place] [address] Kristen Mancera MD [address] [facility] [place], [place] [id number] 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); Neutropenia, [...] on file 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 Gender Identity Not on file Sexual Orientation Not on file documented as of this encounter Last Filed Vital Signs Vital Sign Reading Time Taken Comments Blood Pressure 137/85 06/26/2021 10:57 AM CDT Pulse 57 06/26/2021 10:57 AM CDT Temperature 36.7 ??C (98 ??F) 06/26/2021 10:57 AM CDT Respiratory Rate 16 06/26/2021 10:57 AM CDT Oxygen Saturation 100% 06/26/2021 10:57 AM CDT Inhaled Oxygen Concentration - - Weight 53.5 kg (118 lb) 06/26/2021 10:57 AM CDT Height - - Body Mass Index 21.58 04/07/2021 1:58 PM CDT documented in this encounter Progress Notes * Kristen Mancera MD - 06/26/2021 11:20 AM CDT BMT Progress Note Oncology History No history exists. Active Treatment & Therapy Plans for Karen Medeiros Melissa A does not have any active plans of the following types: Oncology Chemotherapy Treatment, Oncology Treatment (2), Oncology Treatment (3), Oncology Supportive Care, Specialty InfusionTreatment, Blood Products, BMT, Hematology Subjective Interval History Ms. Medeiros is 50 y/o woman, here today for scheduled follow up. She has a history of neutropenia with homozygote mutation MTHFR. [employer] panel is negative. She is doing very well and has no complaints. There is no Hx of frequent infections, fevers or chills. No nausea, vomiting or diarrhea. She feelsvery well overall. Allergies Allergen Reactions ??? Ibuprofen Rash ??? Tolmetin Unknown Outpatient Encounter Medications as of 06/26/2021: ??? ALPRAZolam (XANAX) 0.25 mg tablet, TAKE 1 TABLET BY MOUTH TWICE A DAY NEEDED FOR ANXIETY, Disp: , Rfl: 1 ??? levonorgestrel (MIRENA) IUD, 1 Device by intrauterine route., Disp: , Rfl: ??? triamcinolone (KENALOG) 0.1 % cream, apply to affected areas of trunk twice daily as needed forredness/itching, Disp: , Rfl: ??? zolpidem (Ambien) 10 mg tablet, Take 1 tablet (10 mg total) by mouth nightly at bedtime., Disp:30 tablet, Rfl: 3 Review of Systems Review of systems per HPI and otherwise all systems are negative Performance Status: ECOG 0 Objective Vitals: BP: 137/85 Temp: 36.7 ??C (98 ??F) Temp src: Temporal Pulse: 57 Resp: 16 SpO2: 100 % Weight: 53.5 kg (118 lb) Physical exam: General: Well appearing, in no [...] aredisplayed. Labs - Hematology Latest Ref Range 11/21/20 06/26/21 WBC 3.8 - 9.8 K/cumm 3.5 (A) 4.0 Total Hb, POC 12.1 - 15.1 g/dL 12.8 13.4 Hct 36.1 - 44.3 % 38.6 39.5 Plt 140 - 440 K/cumm 235 231 Neutrophil abs 1.8 - 6.6 K/cumm 1.3 (A) 1.7 (A) Lymphocytes, abs 1.2 - 3.3 K/cumm 1.4 1.7 (A) Abnormal value Comments are available for some flowsheets but are not being displayed. Chem/LFT Lab History Some values may be hidden. Unless noted otherwise, only the newest values recorded on each date aredisplayed. Labs-Chem/LFT Latest Ref Range 11/21/20 06/26/21 Sodium 135 - 145 mmol/L 140 139 Creatinine 0.60 - 1.10 mg/dL 0.67 0.61 Bilirubin, total 0.1 - 1.2 mg/dL 0.4 0.5 AST 10 - 45 Units/L 14 16 ALT 7 - 45 Units/L 8 7 CrCl- Actual Body Weight (Cockcroft-Gault) 85.8 94.3 Comments are available for some flowsheets but [...] questions or concerns. documented in this encounter Nursing Notes * Essence Kwok RN - 06/26/2021 11:20 AM CDT Seen in clinic by Dr. Mancera. Counts stable, no acute issues. ROV 1 year. documented in this encounter Plan of Treatment Not on file documented as of this encounter Results * (ABNORMAL) CBC with auto differential (07/16/2022 10:40 AM CDT) WBC 2.5(L) 3.8 - 9.8 K/cumm JAG BJ Comment:Testing performed by : [facility], [address] [place] [phone] Hgb 13.1 12.1 - 15.1 g/dL CERLIZZY BJ Comment:Testing performed by : [address] [phone] Hct 39.0 36.1 - 44.3 % CERNER BJ Comment:Testing performed by : [facility], [address] [place] [phone] Plt 224 140 - 440 K/cumm CERLIZZY BJ Comment:Testing performed by : [address] [phone] MPV 8.6 6.8 - 10.4 fL CERLIZZY BJ Comment:Testing performed by : [address] [phone] RBC 4.11 3.90 - 5.00 M/cumm CERLIZZY TREY Comment:Testing performed by : [facility], [address] [place] [phone] MCV 95.0 80.0 - 97.6 fL JAG YANG Comment:Testing performed by : [facility], [address] [place] [phone] MCH 31.9 26.7 - 33.7 pg JAG YANG Comment:Testing performed by : [facility], [address] [place] [phone] MCHC 33.6 32.7 - 35.5 g/dL JAG YANG Comment:Testing performed by : [facility], [address] [place] [phone] RDW CV 12.8 11.8 - 14.6 % JAG YANG Comment:Testing performed by : [facility], [address] [place] [phone] NRBC abs 0.00 0.00 - 0.01 K/cumm JAG YANG Comment:Testing performed by : [facility], [address] [place] [phone] Blood 07/16/2022 10:4 0 AM CDT 07/16/2022 10:42 AM CDT us Kristen Mancera MD LAB BLOOD ORDERABLES Final Resul t JAG [facility] [address] [facility] [place] [address] * Comprehensive metabolic panel (07/16/2022 10:40 AM CDT) Sodium 139 135 - 145 mmol/L JAG YANG Comment:Testing performed by : [facility], [address] [place] [phone] Potassium, pl 4.5 3.3 - 4.9 mmol/L JAG YANG Comment:Testing performed by : [facility], [address] [place] [phone] Chloride 103 97 - 110 mmol/L JAG YANG Comment:Testing performed by : [facility], [address] [place] [phone] CO2 28 22 - 32 mmol/L CERNER BJ Comment:Testing performed by : [facility], [address] [place] [phone] Anion gap 8 2 - 15 mmol/L CERNER BJ Comment:Testing performed by : [facility], [address] [place] [phone] BUN 11 8 - 25 mg/dL CERNER BJ Comment:Testing performed by : [facility], [address] [place] [phone] Creatinine 0.61 0.60 - 1.10 mg/dL CERNER BJ Comment:Testing performed by : [facility], [address] [place] [phone] Glucose 84 70 - 199 mg/dL CERNER [...] was last revised 2017. Testing performed by: [facility], [address] [place] [phone] Calcium 9.2 8.5 - 10.3 mg/dL CERNER BJ Comment:Testing performed by : [facility], [address] [place] [phone] Bilirubin, total 0.5 0.1 - 1.2 mg/dL CERNER BJ Comment:Testing performed by : [facility], [address] [place] [phone] Protein, pl 7.5 6.5 - 8.5 g/dL CERNER BJH Comment:Testing performed by : [address] [phone] Albumin 4.6 3.5 - 5.0 g/dL CERNER BJ Comment:Testing performed by : [facility], [address] [place] [phone] Alk phos 43 40 - 130 Units/L [facility] Comment:Testing performed by : [facility], [address] [place] [phone] ALT 13 7 - 45 Units/L [facility] Comment:Testing performed by : [facility], [address] [place] [phone] AST 17 10 - 45 Units/L [facility] Comment:Testing performed by : [facility], [address] [place] [phone] Blood 07/16/2022 10:4 0 AM CDT 07/16/2022 10:42 AM CDT Kristen Mancera MD LAB BLOOD ORDERABLES Final Resul t Performing Organization Address [facility] de Phone Number [facility] [place] [address] * Lactate dehydrogenase (LD) (07/16/2022 10:40 AM CDT) Lactate dehydrogenase (LDH) 120 100 - 250 Units/L [facility] Comment:Testing performed by : [facility], [address] [place] [phone] Blood 07/16/2022 10:4 0 AM CDT 07/16/2022 10:42 AM CDT Kristen Mancera MD LAB BLOOD ORDERABLES Final Resul t Performing Organization Address [facility] de Phone Number [facility] [place] [address] documented in this encounter Visit Diagnoses Diagnosis Homozygous MTHFR mutation C677T- Primary Neutropenia, unspecified type (HCC) documented in this encounter Orders Appointment Requests Count Last Ordered Date Fi rst Ordered Date ONCBCN CLINIC APPOINTMENT REQUEST 1 022 ONCBCN LAB APPOINTMENT 1 07/16/2022 documented in this encounter Care Teams Occupational Health And Safety Adviser Relationship Specialty Start Date End Date Kacey Gonzalez MD PCP - General Family Medicine 04/07/21 06/08/23 Kristen Mancera MD Medical Oncologist/Whale Fisherman Medical Oncology 11/21/20 documented as of this encounter
--- OUTSIDE RECORDS SUMMARY | 2024-10-06 07:07 | XMS_ITS | Encounter Summary ---
Author Organization [facility] Address [address] [place] [address] Phone Care Team Providers Care Rheumatology Specialist Name Role Phone Jesus Alberto Smith MD Primary Care Provider [phone] Kristen Mancera MD Unavailable Encounter Details Date Type Department Care Team (Late st Contact Info) Description 11/21/2020 10:45 AM 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 Lab [facility] [address] [facility] Advanced Medicine 7th [place] [address] [place] [phone] Kristen Mancera MD [address] DIV IM BONE MARROW TRANSPLANT, [address] [place] [address] Neutropenia (CMS/HCC) Social History Tobacco Use Types Packs/Day Years Used Date Smoking Tobacco: Never Smokeless Tobacco: Never Comments Unknown Sex and Gender Information Value Date Recorded Sex Assigned at Not on file Legal Sex Female 10:19 PM 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 Gender Identity Not on file Sexual Orientation Not on file documented as of this encounter Plan of Treatment Not on file documented as of this encounter Procedures Procedure Name Priority Date/Time Associated Diagnosis Comments DIFFERENTIAL AUTO Routine 11/21/2020 10: 58 AM 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 Neutropenia (CMS/HCC) CBC WITH AUTO DIFFERENTIAL Routine 11/21/2020 10:58 AM 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 Neutropenia (CMS/HCC) LACTATE DEHYDROGENASE Routine 11/21/2020 10:58 AM 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 Neutropenia (CMS/HCC) COMPREHENSIVE METABOLIC PANEL Routine 11/21/2020 10:58 AM 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 Neutropenia (CMS/HCC) documented in this encounter Results * (ABNORMAL) Differential, auto (11/21/2020 10:58 AM 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) Neutrophil abs 1.3(L) 1.8 - 6.6 K/cumm [facility] Comment:Testing performed by : [facility], [address] [place] [phone] Lymphocyte abs 1.4 1.2 - 3.3 K/cumm [facility] Comment:Testing performed by : [facility], [address] [place] [phone] Monocyte abs 0.6 0.2 - 1.2 K/cumm [facility] Comment:Testing performed by : [facility], [address] [place] [phone] Eosinophil abs 0.1 0.0 - 0.5 K/cumm [facility] Comment:Testing performed by : [facility], [address] [place] [phone] Basophil abs 0.1 0.0 - 0.2 K/cumm [facility] Comment:Testing performed by : [facility], [address] [place] [phone] Neutrophil pct 36.2 % [facility] Comment: Interpretive Data Percent cell count reference ranges are not reported, since discordance with absolute values may lead to misinterpretation of CBC data. Current Interpretive Data was last revised on 2018. Testing performed by: [facility], [address] [place] [phone] Lymphocyte pct 41.4 % [facility] Comment: Interpretive Data Percent cell count reference ranges are not reported, since discordance with absolute values may lead to misinterpretation of CBC data. Current Interpretive Data was last revised on 2018. Testing performed by: [facility], [address] [place] [phone] Monocyte pct 16.3 % [facility] Comment:Testing performed by : [facility], [address] [place] [phone] Eosinophil pct 3.5 % [facility]AG [facility] Comment:Testing performed by : [facility], [address] [place] [phone] Basophil pct 2.6 % [facility] Comment:Testing performed by : [facility], [address] [place] [phone] Blood specimen (specimen) 11/21/2020 10:58 AM 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 11/21/2020 10:59 AM 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 us Kristen Mancera MD LAB BLOOD ORDERABLES Final Resul t JAG YANG [facility] Department [place] [address] * Comprehensive metabolic panel (11/21/2020 10:58 AM 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) Sodium 140 135 - 145 mmol/L JAG [facility] Comment:Testing performed by : [facility], [address] [place] [phone] Potassium, pl 4.6 3.3 - 4.9 mmol/L [facility]GA [facility] Comment:Testing performed by : [facility], [address] [place] [phone] Chloride 107 97 - 110 mmol/L [facility]AG [facility] Comment:Testing performed by : [facility], [address] [place] [phone] CO2 29 22 - 32 mmol/L [facility] Comment:Testing performed by : [facility], [address] [place] [phone] Anion gap 4 2 - 15 mmol/L JAG [facility] Comment:Testing performed by : [facility], [address] [place] [phone] BUN 10 8 - 25 mg/dL JAG [facility] Comment:Testing performed by : [facility], [address] [place] [phone] Creatinine 0.67 0.60 - 1.10 mg/dL JAG [facility]ANG Comment:Testing performed by : [facility], [address] [place] [phone] Glucose 91 70 - 199 mg/dL [facility] Comment: [...] was last revised 2017. Testing performed by: [facility], [address] [place], [place] [phone] Calcium 9.3 8.5 - 10.3 mg/dL [facility] Comment:Testing performed by : [place] [phone] Bilirubin, total 0.4 0.1 - 1.2 mg/dL C[facility] Comment:Testing performed by : [facility], [address] [place] [phone] Protein, pl 7.0 6.5 - 8.5 g/dL C[facility]ER [facility] Comment:Testing performed by : [address] [phone] Albumin 4.4 3.5 - 5.0 g/dL [facility] Comment:Testing performed by : [address] [phone] Alk phos 40 40 - 130 Units/L [facility] Comment:Testing performed by : [place] [phone] ALT 8 7 - 45 Units/L [facility] Comment:Testing performed by : [address] [phone] AST 14 10 - 45 Units/L [facility] Comment:Testing performed by : [address] [phone] Blood specimen (specimen) 11/21/2020 10:58 AM 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 11/21/2020 10:59 AM 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 us Kristen Mancera MD LAB BLOOD ORDERABLES Final Resul t Performing Organization Address [facility] Co de Phone Number [facility] Department [place] [address] * Lactate dehydrogenase (LD) (11/21/2020 10:58 AM 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) Pathologist [facility] Lactate dehydrogenase (LDH) 126 100 - 250 Units/L [facility] Comment:Testing performed by : [facility], [address] [place] [phone] Blood specimen (specimen) 11/21/2020 10:58 AM 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 11/21/2020 10:59 AM 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 us Kristen Mancera MD LAB BLOOD ORDERABLES Final Resul t Performing Organization Address [facility] de Phone Number [facility] Department [place] [address] * (ABNORMAL) CBC with auto differential (11/21/2020 10:58 AM 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) Pathologist [facility] WBC 3.5(L) 3.8 - 9.8 K/cumm [facility] Comment:Testing performed by : [facility], [address] [place] [phone] Hgb 12.8 12.1 - 15.1 g/dL [facility] Comment:Testing performed by : [facility], [address] [place] [phone] Hct 38.6 36.1 - 44.3 % [facility] Comment:Testing performed by : [address] [phone] Plt 235 140 - 440 K/cumm [facility] Comment:Testing performed by : [facility], [address] [place] [phone] MPV 8.3 6.8 - 10.4 fL [facility] Comment:Testing performed by : [facility], [address] [place] [phone] RBC 4.08 3.90 - 5.00 M/cumm [facility] Comment:Testing performed by : [facility], [address] [place] [phone] MCV 94.6 80.0 - 97.6 fL [facility] Comment:Testing performed by : [facility], [address] [place] [phone] MCH 31.5 26.7 - 33.7 pg [facility] Comment:Testing performed by : [facility], [address] [place] [phone] MCHC 33.3 32.7 - 35.5 g/dL [facility] Comment:Testing performed by : [facility], [address] [place] [phone] RDW CV 12.6 11.8 - 14.6 % [facility] Comment:Testing performed by : [facility], [address] [place] [phone] NRBC abs 0.00 0.00 - 0.01 K/cumm [facility] Comment:Testing performed by : [facility], [address] [place] [phone] Blood specimen (specimen) 11/21/2020 10:58 AM 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 11/21/2020 10:59 AM 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 us Kristen Mancera MD LAB BLOOD ORDERABLES Final Resul t [facility] Department of Laboratories [place], [place] [id number] documented in this encounter Visit Diagnoses Diagnosis Neutropenia (HCC) documented in this encounter Orders Appointment Requests Count Last Ordered Date Fi rst Ordered Date ONCBCN LAB APPOINTMENT 1 11/21/2020 documented in this encounter Care Teams Rheumatology Specialist Relationship Specialty Start Date End Date Jesus Alberto Smith MD PCP - General 11/04/17 04/06/21 Kristen Mancera MD Medical Oncologist/Voyage Management System Operator Medical Oncology 11/21/20 documented as of this encounter
--- OUTSIDE RECORDS SUMMARY | 2024-10-06 07:07 | XMS_ITS | Encounter Summary ---
Author Organization [facility] Address [address] [place] [address] Phone Care Team Providers Care Archeologist Name Role Phone Jesus Alberto Smith MD Primary Care Provider [phone] Encounter Details Date Type Department Care Team (Late st Contact Info) Description 05/16/2020 9:45 AM CDT Lab [facility] Oncology [address] [facility] Advanced [facility] 7th [place] [address] [place] [phone] Kristen Mancera MD [address] DIV IM BONE MARROW TRANSPLANT, [address] [place], [place] [id number] Neutropenia, unspecified type (CMS/HCC) Social History Tobacco Use Types Packs/Day Years Used Date Smoking Tobacco: Never Smokeless Tobacco: Never Comments Unknown Sex and Gender Information Value Date Recorded Sex Assigned at Not on file 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 Gender Identity Not on file Sexual Orientation Not on file documented as of this encounter Plan of Treatment Not on file documented as of this encounter Procedures Procedure Name Priority Date/Time Associated Diagnosis Comments DIFFERENTIAL AUTO Routine 05/16/2020 9:5 8 AM CDT Neutropenia, unspecified type (CMS/HCC) CBC WITH AUTO DIFFERENTIAL Routine 05/16/2020 9:58 AM CDT Neutropenia, unspecified type (CMS/HCC) LACTATE DEHYDROGENASE Routine 05/16/2020 9:58 AM CDT Neutropenia, unspecified type (CMS/HCC) COMPREHENSIVE METABOLIC PANEL Routine 05/16/2020 9:58 AM CDT Neutropenia, unspecified type (CMS/HCC) documented in this encounter Results * (ABNORMAL) Differential, auto (05/16/2020 9:58 AM CDT) Neutrophil abs 1.6(L) 1.8 - 6.6 K/cumm [facility] Comment:Testing performed by : [facility], [address] [place] [phone] Lymphocyte abs 1.6 1.2 - 3.3 K/cumm [facility] Comment:Testing performed by : [facility], [address] [place] [phone] Monocyte abs 0.5 0.2 - 1.2 K/cumm [facility] Comment:Testing performed by : [facility], [address] [place] [phone] Eosinophil abs 0.3 0.0 - 0.5 K/cumm [facility] Comment:Testing performed by : [facility], [address] [place] [phone] Basophil abs 0.1 0.0 - 0.2 K/cumm [facility] Comment:Testing performed by : [facility], [address] [place] [phone] Neutrophil pct 38.5 % [facility] Comment: Interpretive Data Percent cell count reference ranges are not reported, since discordance with absolute values may lead to misinterpretation of CBC data. Current Interpretive Data was last revised on 2018. Testing performed by: [facility], [address] [place] [phone] Lymphocyte pct 40.0 % [facility] Comment: Interpretive Data Percent cell count reference ranges are not reported, since discordance with absolute values may lead to misinterpretation of CBC data. Current Interpretive Data was last revised on 2018. Testing performed by: [facility], [address] [place] [phone] Monocyte pct 13.3 % [facility] Comment:Testing performed by : [facility], [address] [place] [phone] Eosinophil pct 6.4 % [facility] Comment:Testing performed by : [facility], [address] [place] [phone] Basophil pct 1.8 % J[facility] Comment:Testing performed by : [facility], [address] [place] [phone] Blood specimen (specimen) 05/16/2020 9:58 AM CDT 05/16/2020 10:02 AM CDT Lolita Barrera FOOT PIECE ASSEMBLER LAB BLOOD ORDERABLES Final Result Performing Organization Address City/[facility] Co de Phone Number [facility] [place] [place] [address] * Lactate dehydrogenase (LD) (05/16/2020 9:58 AM CDT) Pathologist [facility] Lactate dehydrogenase (LDH) 126 100 - 250 Units/L J[facility] Comment:Testing performed by : [facility], [address] [place] [phone] Blood specimen (specimen) 05/16/2020 9:58 AM CDT 05/16/2020 10:02 AM CDT Lolita Barrera FOOT PIECE ASSEMBLER LAB BLOOD ORDERABLES Final Result Performing Organization Address City/[facility] de Phone [place] [address] * (ABNORMAL) Comprehensive metabolic panel (05/16/2020 9:58 AM CDT) Sodium 141 135 - 145 mmol/L J[facility] Comment:Testing performed by : [facility], [address] [place] [phone] Potassium, pl 4.7 3.3 - 4.9 mmol/L [facility] Comment:Testing performed by : [facility], [address] [place] [phone] Chloride 104 97 - 110 mmol/L [facility] Comment:Testing performed by : [facility], [address] [place] [phone] CO2 29 22 - 32 mmol/L [facility] Comment:Testing performed by : [facility], [address] [place] [phone] Anion gap 8 2 - 15 mmol/L [facility] Comment:Testing performed by : [facility], [address] [place] [phone] BUN 11 8 - 25 mg/dL [facility] Comment:Testing performed by : [facility], [address] [place] [phone] Creatinine 0.64 0.60 - 1.10 mg/dL [facility] Comment:Testing performed by : [facility], [address] [place] [phone] Glucose 81 70 - 199 mg/dL [facility] Comment: Interpretive Data Fasting glucose >/= 126 [...] was last revised 2017. Testing performed by: [facility], [address] [place] [phone] Calcium 9.4 8.5 - 10.3 mg/dL [facility] Comment:Testing performed by : [facility], [address] [place] [phone] Bilirubin, total 0.2 0.1 - 1.2 mg/dL [facility] Comment:Testing performed by : [facility], [address] [place] [phone] Protein, pl 6.8 6.5 - 8.5 g/dL [facility] Comment:Testing performed by : [facility], [address] [place] [phone] Albumin 4.6 3.5 - 5.0 g/dL JAG YANG Comment:Testing performed by : [facility], [address] [place] [phone] Alk phos 38(L) 40 - 130 Units/L [facility]AG YANG Comment:Testing performed by : [facility], [address] [place] [phone] ALT 8 7 - 45 Units/L JAG YANG Comment:Testing performed by : [facility], [address] [place] [phone] AST 14 10 - 45 Units/L [facility]AG [facility]ANG Comment:Testing performed by : [facility], [address] [place] [phone] Blood specimen (specimen) 05/16/2020 9:58 AM CDT 05/16/2020 10:02 AM CDT us Lolita Barrera FOOT PIECE ASSEMBLER LAB BLOOD ORDERABLES Final Result Performing Organization Address City/State/[facility] Co de Phone Number JAG [facility] One [facility] Department [place] [address] * CBC with auto differential (05/16/2020 9:58 AM CDT) WBC 4.0 3.8 - 9.8 K/cumm JAG YANG Comment:Testing performed by : [facility], [address] [place] [phone] Hgb 14.0 12.1 - 15.1 g/dL JAG YANG Comment:Testing performed by : [facility], [address] [place] [phone] Hct 41.4 36.1 - 44.3 % JAG YANG Comment:Testing performed by : [facility], [address] [place] [phone] Plt 229 140 - 440 K/cumm JAG YANG Comment:Testing performed by : [address] [phone] MPV 8.1 6.8 - 10.4 fL JAG YANG Comment:Testing performed by : [facility], [address] [place] [phone] RBC 4.37 3.90 - 5.00 M/cumm [facility]AG [facility] Comment:Testing performed by : [facility], [address] [place] [phone] MCV 94.8 80.0 - 97.6 fL [facility]AG [facility] Comment:Testing performed by : [facility], [address] [place] [phone] MCH 31.9 26.7 - 33.7 pg JAG [facility] Comment:Testing performed by : [facility], [address] [place] [phone] MCHC 33.7 32.7 - 35.5 g/dL [facility]AG [facility] Comment:Testing performed by : [facility], [address] [place] [phone] RDW CV 12.5 11.8 - 14.6 % [facility] Comment:Testing performed by : [facility], [address] [place] [phone] NRBC abs 0.00 0.00 - 0.01 K/cumm [facility]AG [facility] Comment:Testing performed by : [facility], [address] [place] [phone] Blood specimen (specimen) 05/16/2020 9:58 AM CDT 05/16/2020 10:02 AM CDT us Lolita Barrera FOOT PIECE ASSEMBLER LAB BLOOD ORDERABLES Final Result Performing Organization Address City/State/[facility] Co de Phone Number [facility] One [facility] Department [place] [address] documented in this encounter Visit Diagnoses Diagnosis Neutropenia, unspecified type (HCC) documented in this encounter Care Teams Archeologist Relationship Specialty Start Date End Date Jesus Alberto Smith MD PCP - General 11/04/17 04/06/21 documented as of this encounter
--- OUTSIDE RECORDS SUMMARY | 2024-10-06 07:07 | XMS_ITS | Encounter Summary ---
Author Organization [facility] Healthcare Address [address] [place] [address] Care Team Providers Care Lab Rep Name Role Phone Jesus Alberto Smith MD Primary Care Provider [phone] Reason for Referral * Diagnostic Imaging (Routine) - Closed Specialty Diagnoses / Procedures Referred By Wilfred t Referred To Contact Diagnoses Encounter for screening mammogram for malignant neoplasm of breast Procedures Screening Mammogram Bilateral w Niko w Implants Screening Mammogram, Self [facility] [address] [place] [address] Referral ID Status Reason Start Date Expiration Date Visits Re quested Visits Authorized [id number] Closed 05/15/2020 06/14/2021 1 1 Reason for Visit * Diagnostic Imaging (Routine) - Closed Specialty Diagnoses / Procedures Referred By Wilfred t Referred To Contact Diagnoses Encounter for screening mammogram for malignant neoplasm of breast Procedures Screening Mammogram Bilateral w Niko w Implants Screening Mammogram, Self [facility] [address] [place] [address] Referral ID Status Reason Start Date Expiration Date Visits Re quested Visits Authorized [id number] Closed 05/15/2020 06/14/2021 1 1 Encounter Details Date Type Department Care Team (Latest Contact Info) Description 07/15/2020 11:53 AM CDT - 07/15/2020 11:59 PM CDT Hospital Encounter [facility] Breast [facility] [address] [place] [id number] Screening Mammogram, Self Encounter for screening mammogram for malignant neoplasm of breast Discharge Disposition: Discharge to home or self care Social History Tobacco Use Types Packs/Day Years Used Date Smoking Tobacco: Never Smokeless Tobacco: Never Comments Unknown Sex and Gender Information Value Date Recorded Sex Assigned at Not on file 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 02/11/2017 04/07/20 21 triamcinolone (KENALOG) 0.1 % creamIndications:N eutropenia, unspecified type (HCC) apply to affected areas of trunk twice daily as needed for redness/itching 02/11/2017 04/20/20 22 zolpidem (AMBIEN) 10 mg tabletIndications: Sleep-Onset Insomnia TAKE 1 TABLET AT BEDTIME. 05/08/20 21 documented as of this encounter Discharge Disposition Disposition Code Departure Means Destination Discharge to home or self care documented in this encounter Plan of Treatment Not on file documented as of this encounter Procedures Procedure Name Priority Date/Time Associated Diagnosis Comments SCREENING MAMMOGRAM BILATERAL W NIKO W IMPLANTS Schedule Routine, Read Routine (OP Routine) 07/15/2020 12:22 PM CDT Encounter for screening mammogram for malignant neoplasm of breast documented in this encounter Results * Screening Mammogram Bilateral w Niko w Implants (07/15/2020 12:22 PM CDT) Anatomical Region Laterality Modality Breast Bilateral Mammography Narrative 07/17/2020 9:11 AM CDT Mammogram Technique: Bilateral Digital Breast Tomosynthesis, Bilateral C-view 2D Screening mammogram. ??Views obtained: ??bilateral craniocaudal; bilateral craniocaudal implant displaced; bilateral mediolateral oblique; and bilateral mediolateral oblique implant displaced. ??Computer Aided Detection was performed. Mammogram Findings: The present examination has been compared to prior imaging studies performed at [facility] on 02/15/2014, 11/19/2016 and 11/17/2018. The breasts are heterogeneously dense, which may obscure small masses. There are bilateral sub-pectoral saline implants. There is no suspicious abnormality in either breast. Impression: Annual screening mammography is recommended. OVERALL FINAL ASSESSMENT: BI-RADS CATEGORY 1: ??Negative. Procedure Note Yolis Mitchell MD - 07/17/2020 Mammogram Technique: Bilateral Digital Breast Tomosynthesis, Bilateral C-view 2D Screening mammogram. Views obtained: bilateral craniocaudal; bilateralcraniocaudal implant displaced; bilateral mediolateral oblique; and bilateral mediolateral oblique implant displaced. Computer Aided Detection was performed. Mammogram Findings: The present examination has been compared to prior imaging studies performed at [facility] on 02/15/2014, 11/19/2016 and 11/17/2018. The breasts are heterogeneously dense, which may obscure small masses. There are bilateral sub-pectoral saline implants. There is no suspicious abnormality in either breast. Impression: Annual screening mammography is recommended. OVERALL FINAL ASSESSMENT: BI-RADS CATEGORY 1: Negative. us Self Screening Mammogram IMG MAMMO PROCEDURES Fi nal Result documented in this encounter Visit Diagnoses Diagnosis Encounter for screening mammogram for malignant neoplasm of breast documented in this encounter Care Teams Lab Rep Relationship Specialty Start Date End Date Jesus Alberto Smith MD PCP - General 11/04/17 04/06/21 documented as of this encounter
--- OUTSIDE RECORDS SUMMARY | 2024-10-06 07:07 | XMS_ITS | Encounter Summary ---
Author Organization [facility] Address [address] [place] [address] Phone Care Team Providers Care Nuclear Unit Operator Name Role Phone Jesus Alberto Smith MD Primary Care Provider [phone] Encounter Details Date Type Department Care Team (Late st Contact Info) Description 05/16/2020 10:20 AM CDT Office Visit [facility] Marrow Transplant [address] [facility] [facility] 7th [address], [place] [id number] Kristen Mancera MD [address] DIV IM BONE MARROW TRANSPLANT, [address] [place], [place] [id number] Neutropenia (CMS/HCC) (Primary Dx) Social History Tobacco Use Types Packs/Day Years Used Date Smoking Tobacco: Never Smokeless Tobacco: Never Comments Unknown Sex and Gender Information Value Date Recorded Sex Assigned at Not on file Legal Sex Female 10:19 PM REGIONAL GUIDE Gender Identity Not on file Sexual Orientation Not on file documented as of this encounter Last Filed Vital Signs Vital Sign Reading Time Taken Comments Blood Pressure 116/75 05/16/2020 10:06 AM CDT Pulse 74 05/16/2020 10:06 AM CDT Temperature 36.5 ??C (97.7 ??F) 05/16/2020 10:06 AM C DT Respiratory Rate 16 05/16/2020 10:06 AM CDT Oxygen Saturation 99% 05/16/2020 10:06 AM CDT Inhaled Oxygen Concentration - - Weight 55.3 kg (122 lb) 05/16/2020 10:06 AM CDT Height - - Body Mass Index 22.14 01/17/2019 10:21 AM CDT documented in this encounter Progress Notes * Lolita Barrera NP - 05/16/2020 10:20 AM CDT BMT Progress Note No history exists. Active Treatment & Therapy Plans for Karen Medeiros Melissa A does not have any active plans of the following types: Oncology Chemotherapy Treatment, Oncology Treatment (2), Oncology Treatment (3), Oncology Supportive Care, Specialty InfusionTreatment, Blood Products, BMT, Hematology Subjective Interval History Ms. Medeiros is here today for scheduled follow up. She has a history of neutropenia with homozygotemutation MTHFR. Genopt[employer] panel is negative. She states that she had the flu earlier this year. Otherwise, she has no infections, fevers or chills. No nausea, vomiting or diarrhea. She feels very welloverall. Allergies Allergen Reactions ??? Ibuprofen Rash ??? Tolmetin Unknown Outpatient Encounter Medications as of 05/16/2020: ??? ALPRAZolam (XANAX) 0.25 mg tablet, TAKE 1 TABLET BY MOUTH TWICE A DAY NEEDED FOR ANXIETY, Disp: , Rfl: 1 ??? levonorgestrel (MIRENA) IUD, 1 Device by intrauterine route., Disp: , Rfl: ??? tretinoin (RETIN-A) 0.025 % cream, Apply no more than a pea-sized amount to clean, dry face once daily before bedtime., Disp: , Rfl: ??? triamcinolone (KENALOG) 0.1 % cream, apply to affected areas of trunk twice daily as needed forredness/itching, Disp: , Rfl: ??? zolpidem (AMBIEN) 10 mg tablet, TAKE 1 TABLET AT BEDTIME., Disp: , Rfl: Review of Systems Review of systems per HPI and otherwise all systems are negative Performance Status: ECOG 0 Objective Vitals: BP: 116/75 Temp: 36.5 ??C (97.7 ??F) Temp src: Oral Pulse: 74 Resp: 16 SpO2: 99 % Weight: 55.3 kg (122 lb) Physical exam: General: Well appearing, in no acute distress HEENT: TAMANNA No thrush or mucositis. Left ear with [...] aredisplayed. Labs - Hematology Latest Ref Range 05/16/20 WBC 3.8 - 9.8 K/cumm 4.0 Total Hb, POC 12.1 - 15.1 g/dL 14.0 Hct 36.1 - 44.3 % 41.4 Plt 140 - 440 K/cumm 229 Neutrophil abs 1.8 - 6.6 K/cumm 1.6 (A) Lymphocytes, abs 1.2 - 3.3 K/cumm 1.6 (A) Abnormal value Comments are available for some flowsheets but are not being displayed. Chem/LFT Lab History Some values may be hidden. Unless noted otherwise, only the newest values recorded on each date aredisplayed. Labs-Chem/LFT Latest Ref Range 05/16/20 Sodium 135 - 145 mmol/L 141 Creatinine 0.60 - 1.10 mg/dL 0.64 Bilirubin, total 0.1 - 1.2 mg/dL 0.2 AST 10 - 45 Units/L 14 ALT 7 - 45 Units/L 8 CrCl- Actual Body Weight (Cockcroft-Gault) 93.9 Comments are available for some flowsheets but are not being displayed. Assessment/Plan Neutropenia with MTHFR mutation. Her ANC is 1.6 today, counts are stable. She has no recent infections. We will continue to monitor. Follow up. She will return to our clinic in six months. She knows to call us with any questions or concerns. documented in this encounter Plan of Treatment Not on file documented as of this encounter Results * (ABNORMAL) CBC with auto differential (11/21/2020 10:58 AM REGIONAL GUIDE) WBC 3.5(L) 3.8 - 9.8 K/cumm [facility] Comment:Testing performed by : [facility], [address] [place] [phone] Hgb 12.8 12.1 - 15.1 g/dL [facility] Comment:Testing performed by : [facility], [address] [place] [phone] Hct 38.6 36.1 - 44.3 % [facility] Comment:Testing performed by : [place] [phone] Plt 235 140 - 440 K/cumm [facility] Comment:Testing performed by : [address] [phone] MPV 8.3 6.8 - 10.4 fL [facility] Comment:Testing performed by : [place] [phone] RBC 4.08 3.90 - 5.00 M/cumm [facility] Comment:Testing performed by : [address] [phone] MCV 94.6 80.0 - 97.6 fL [facility] Comment:Testing performed by : [address] [phone] MCH 31.5 26.7 - 33.7 pg [facility] Comment:Testing performed by : [address] [phone] MCHC 33.3 32.7 - 35.5 g/dL [facility] Comment:Testing performed by : [place] [phone] RDW CV 12.6 11.8 - 14.6 % [facility] Comment:Testing performed by : [address] [phone] NRBC abs 0.00 0.00 - 0.01 K/cumm [facility] Comment:Testing performed by : [facility], [address] [place] [phone] Blood specimen (specimen) 11/21/2020 10:58 AM REGIONAL GUIDE 11/21/2020 10:59 AM REGIONAL GUIDE us Kristen Mancera MD LAB BLOOD ORDERABLES Final Resul t Performing Organization Address [facility] de Phone Number [facility] [place] [address] * Lactate dehydrogenase (LD) (11/21/2020 10:58 AM REGIONAL GUIDE) Lactate dehydrogenase (LDH) 126 100 - 250 Units/L [facility] Comment:Testing performed by : [facility], [address] [place] [phone] Blood specimen (specimen) 11/21/2020 10:58 AM REGIONAL GUIDE 11/21/2020 10:59 AM REGIONAL GUIDE us Kristen Mancera MD LAB BLOOD ORDERABLES Final Resul t Performing Organization Address [facility] [place] [address] * Comprehensive metabolic panel (11/21/2020 10:58 AM REGIONAL GUIDE) Sodium 140 135 - 145 mmol/L [facility] Comment:Testing performed by : [facility], [address] [place] [phone] Potassium, pl 4.6 3.3 - 4.9 mmol/L [facility] Comment:Testing performed by : [facility], [address] [place] [phone] Chloride 107 97 - 110 mmol/L [facility] Comment:Testing performed by : [facility], [address] [place] [phone] CO2 29 22 - 32 mmol/L [facility] Comment:Testing performed by : [facility], [address] [place] [phone] Anion gap 4 2 - 15 mmol/L [facility] Comment:Testing performed by : [facility], [address] [place] [phone] BUN 10 8 - 25 mg/dL [facility] Comment:Testing performed by : [facility], [address] [place] [phone] Creatinine 0.67 0.60 - 1.10 mg/dL [facility] Comment:Testing performed by : [facility], [address] [place] [phone] Glucose 91 70 - 199 mg/dL [facility]ERNER [...] was last revised 2017. Testing performed by: [facility], [address] [place] [phone] Calcium 9.3 8.5 - 10.3 mg/dL [facility] Comment:Testing performed by : [address] [phone] Bilirubin, total 0.4 0.1 - 1.2 mg/dL [facility] Comment:Testing performed by : [address] [phone] Protein, pl 7.0 6.5 - 8.5 g/dL [facility] Comment:Testing performed by : [address] [phone] Albumin 4.4 3.5 - 5.0 g/dL [facility] Comment:Testing performed by : [address] [phone] Alk phos 40 40 - 130 Units/L [facility] Comment:Testing performed by : [address] [phone] ALT 8 7 - 45 Units/L [facility] Comment:Testing performed by : [facility], [address] [facility] [phone] AST 14 10 - 45 Units/L [facility] Comment:Testing performed by : [facility], [address] [facility] [phone] Blood specimen (specimen) 11/21/2020 10:58 AM REGIONAL GUIDE 11/21/2020 10:59 AM REGIONAL GUIDE us Kristen Mancera MD LAB BLOOD ORDERABLES Final Resul t [facility] Department of [place] [address] documented in this encounter Visit Diagnoses Diagnosis Neutropenia (HCC)- Primary documented in this encounter Orders Appointment Requests Count Last Ordered Date Fi rst Ordered Date [facility]N CLINIC APPOINTMENT REQUEST 1 021 ON[facility]N LAB APPOINTMENT 1 11/21/2020 documented in this encounter Care Teams Nuclear Unit Operator Relationship Specialty Start Date End Date Jesus Alberto Smith MD PCP - General 11/04/17 04/06/21 documented as of this encounter
--- OUTSIDE RECORDS SUMMARY | 2024-10-06 07:07 | XMS_ITS | Encounter Summary ---
Author Organization [facility] Address [address] [place] [address] Phone Care Team Providers Care Drop Hammer Set Up Operator Name Role Phone Jesus Alberto Smith MD Primary Care Provider [phone] Kristen Mancera MD Unavailable Encounter Details Date Type Department Care Team (Late st Contact Info) Description 11/21/2020 11:20 AM COPPER PLATE PRINTER Office Visit [facility] Bone Marrow Transplant [address] [facility] Advanced Medicine 7th [place], [place] [address] Kristen Mancera MD [address] DIV IM BONE MARROW TRANSPLANT, [address] [place], [place] [id number] Neutropenia, unspecified type (CMS/HCC) (Primary Dx); Neutropenia (CMS/HCC) Social History Tobacco Use Types Packs/Day Years Used Date Smoking Tobacco: Never Smokeless Tobacco: Never Comments Unknown Sex and Gender Information Value Date Recorded Sex Assigned at Not on file Legal Sex Female 10:19 PM COPPER PLATE PRINTER Gender Identity Not on file Sexual Orientation Not on file documented as of this encounter Last Filed Vital Signs Vital Sign Reading Time Taken Comments Blood Pressure 135/84 11/21/2020 11:14 AM COPPER PLATE PRINTER Pulse 83 11/21/2020 11:14 AM COPPER PLATE PRINTER Temperature 36.7 ??C (98 ??F) 11/21/2020 11:14 AM COPPER PLATE PRINTER Respiratory Rate 16 11/21/2020 11:14 AM COPPER PLATE PRINTER Oxygen Saturation 97% 11/21/2020 11:14 AM COPPER PLATE PRINTER Inhaled Oxygen Concentration - - Weight 53.5 kg (118 lb) 11/21/2020 11:14 AM COPPER PLATE PRINTER Height 157 cm (5' 1.81 ) 11/21/2020 11:14 AM COPPER PLATE PRINTER Body Mass Index 21.71 11/21/2020 11:14 AM COPPER PLATE PRINTER documented in this encounter Progress Notes * Kristen Mancera MD - 11/21/2020 11:20 AM CST BMT Progress Note Oncology History No history [...] mutation MTHFR. Genoptix panel is negative. She states that she had the COVID in September. She fully recovered. Otherwise, she has no infections, fevers or chills. No nausea, vomiting or diarrhea. She feels verywell overall. Allergies Allergen Reactions ??? Ibuprofen Rash ??? Tolmetin Unknown Outpatient Encounter Medications as of 11/21/2020: ??? ALPRAZolam (XANAX) 0.25 mg tablet, TAKE [...] Performance Status: ECOG 0 Objective Vitals: BP: 135/84 Temp: 36.7 ??C (98 ??F) Temp src: Temporal Pulse: 83 Resp: 16 SpO2: 97 % Height: 157 cm (5' 1.81 ) Weight: 53.5 kg (118 lb) Physical exam: [...] Labs - Hematology Latest Ref Range 05/16/20 11/21/20 WBC 3.8 - 9.8 K/cumm 4.0 3.5 (A) Total Hb, POC 12.1 - 15.1 g/dL 14.0 12.8 Hct 36.1 - 44.3 % 41.4 38.6 Plt 140 - 440 K/cumm 229 235 Neutrophil abs 1.8 - 6.6 K/cumm 1.6 (A) 1.3 (A) Lymphocytes, abs 1.2 - 3.3 K/cumm 1.6 1.4 (A) Abnormal value Comments are available for some flowsheets but are not being displayed. Chem/LFT Lab History Some values may be hidden. Unless noted otherwise, only the newest values recorded on each date aredisplayed. Labs-Chem/LFT Latest Ref Range 05/16/20 11/21/20 Sodium 135 - 145 mmol/L 141 140 Creatinine 0.60 - 1.10 mg/dL 0.64 0.67 Bilirubin, total 0.1 - 1.2 mg/dL 0.2 0.4 AST 10 - 45 Units/L 14 14 ALT 7 - 45 Units/L 8 8 CrCl- Actual Body Weight (Cockcroft-Gault) 93.9 85.8 Comments are available for some flowsheets but are not being displayed. Assessment/Plan Ms. Medeiros is 50 y/o woman with Hx of Neutropenia with MTHFR mutation. Her ANC is 1. 3 today, counts are stable. She has no recent infections. We will continue to monitor. Follow up. She will return to our clinic in six months. She knows to call us with any questions or concerns. ER PLATE PRINTER documented in this encounter Nursing Notes * Vita Jones, NADIR - 11/21/2020 11:20 AM CST ROV with Fiordaliza for chronic neutropenia with MTHFR mutation. Continue observation. ROV 6 months. ER PLATE PRINTER documented in this encounter Plan of Treatment Not on file documented as of this encounter Results * CBC with auto differential (06/26/2021 10:51 AM CDT) WBC 4.0 3.8 - 9.8 K/cumm [facility] Comment:Testing performed by : [facility], [address] [place] [phone] Hgb 13.4 12.1 - 15.1 g/dL [facility] Comment:Testing performed by : [facility], [address] [place] [phone] Hct 39.5 36.1 - 44.3 % [facility] Comment:Testing performed by : [facility], [address] [place] [phone] Plt 231 140 - 440 K/cumm [facility] Comment:Testing performed by : [address] [phone] MPV 8.3 6.8 - 10.4 fL [facility] Comment:Testing performed by : [address] [phone] RBC 4.15 3.90 - 5.00 M/cumm [facility] Comment:Testing performed by : [facility], [address] [place] [phone] MCV 95.3 80.0 - 97.6 fL [facility] Comment:Testing performed by : [facility], [address] [place] [phone] MCH 32.3 26.7 - 33.7 pg [facility] Comment:Testing performed by : [facility], [address] [place] [phone] MCHC 33.9 32.7 - 35.5 g/dL [facility] Comment:Testing performed by : [facility], [address] [place] [phone] RDW CV 12.4 11.8 - 14.6 % [facility] Comment:Testing performed by : [facility], [address] [place], [place] [phone] NRBC abs 0.00 0.00 - 0.01 K/cumm [facility] Comment:Testing performed by : [facility], [address] [place] [phone] Blood 06/26/2021 10:5 1 AM CDT 06/26/2021 10:55 AM CDT us Kristen Mancera MD LAB BLOOD ORDERABLES Final Resul t Performing Organization Address City/[facility]/ZIP Co de Phone Number [facility] [place] [address] * Lactate dehydrogenase (LD) (06/26/2021 10:51 AM CDT) Lactate dehydrogenase (LDH) 147 100 - 250 Units/L [facility] Comment:Testing performed by : [facility], [address] [place] [phone] Blood 06/26/2021 10:5 1 AM CDT 06/26/2021 10:55 AM CDT us Kristen Mancera MD LAB BLOOD ORDERABLES Final Resul t Performing Organization Address City/[facility]/ZIP Co de Phone Number [facility] [place] [address] * (ABNORMAL) Comprehensive metabolic panel (06/26/2021 10:51 AM CDT) Sodium 139 135 - 145 mmol/L [facility] Comment:Testing performed by : [facility], [address] [place] [phone] Potassium, pl 4.8 3.3 - 4.9 mmol/L [facility] Comment:Testing performed by : [facility], [address] [place] [phone] Chloride 105 97 - 110 mmol/L [facility] Comment:Testing performed by : [address] [phone] CO2 27 22 - 32 mmol/L [facility] Comment:Testing performed by : [facility], [address] [place] [phone] Anion gap 7 2 - 15 mmol/L [facility] Comment:Testing performed by : [facility], [address] [place] [phone] BUN 9 8 - 25 mg/dL [facility] Comment:Testing performed by : [facility], [address] [place] [phone] Creatinine 0.61 0.60 - 1.10 mg/dL [facility] Comment:Testing performed by : [facility], [address] [place] [phone] Glucose 83 70 - 199 mg/dL [facility] [...] was last revised 2017. Testing performed by: [address] [phone] Calcium 9.6 8.5 - 10.3 mg/dL [facility] Comment:Testing performed by : [facility], [address] [place] [phone] Bilirubin, total 0.5 0.1 - 1.2 mg/dL [facility] Comment:Testing performed by : [facility], [address] [place] [phone] Protein, pl 7.4 6.5 - 8.5 g/dL [facility] Comment:Testing performed by : [facility], [address] [place] [phone] Albumin 4.6 3.5 - 5.0 g/dL [facility] Comment:Testing performed by : [facility], [address] [place] [phone] Alk phos 39(L) 40 - 130 Units/L [facility] Comment:Testing performed by : [facility], [address] [place] [phone] ALT 7 7 - 45 Units/L [facility] Comment:Testing performed by : [facility], [address] [place] [phone] AST 16 10 - 45 Units/L [facility] Comment:Testing performed by : [facility], [address] [place] [phone] Blood 06/26/2021 10:5 1 AM CDT 06/26/2021 10:55 AM CDT us Kristen Mancera MD LAB BLOOD ORDERABLES Final Resul t Performing Organization Address City/State/[facility] Co de Phone Number [facility] Department of Laboratories [place], [place] [phone] documented in this encounter Visit Diagnoses Diagnosis Neutropenia, unspecified type (HCC)- Primary documented in this encounter Orders Appointment Requests Count Last Ordered Date Fi rst Ordered Date ONCBCN CLINIC APPOINTMENT REQUEST 1 021 documented in this encounter Care Teams Drop Hammer Set Up Operator Relationship Specialty Start Date End Date Jesus Alberto Smith MD PCP - General 11/04/17 04/06/21 Kristen Mancera MD Medical Oncologist/Transportation Refrigeration Technician Medical Oncology 11/21/20 documented as of this encounter
--- OUTSIDE RECORDS SUMMARY | 2024-10-06 07:07 | XMS_ITS | Encounter Summary ---
Author Organization [facility] Healthcare Address [address] [place] [address] Care Team Providers Care Social Services Specialist Name Role Phone Jesus Alberto Smith MD Primary Care Provider [phone] Encounter Details Date Type Department Care Team (Late st Contact Info) Description 07/15/2020 Telephone [facility] Advanced Medicine Breast Imaging [facility] Advanced Medicine ([facility] [address] [place] [phone] Miscellaneous, Not In File Social History Tobacco Use Types Packs/Day Years Used Date Smoking Tobacco: Never Smokeless Tobacco: Never Comments Unknown Sex and Gender Information Value Date Recorded Sex Assigned at Not on file Legal Sex Female 10:19 PM MANAGER TRANSPORTATION Gender Identity Not on file Sexual Orientation Not on file documented as of this encounter Miscellaneous Notes * Telephone Encounter - Laurie Mendez - 07/15/2020 9:11 AM CDT Reviewed COVID prescreening questions and appt info documented in this encounter Plan of Treatment Not on file documented as of this encounter Visit Diagnoses Not on filedocumented in this encounter Care Teams Social Services Specialist Relationship Specialty Start Date End Date Jesus Alberto Smith MD PCP - General 11/04/17 04/06/21 documented as of this encounter
--- OUTSIDE RECORDS SUMMARY | 2024-10-06 07:08 | XMS_ITS | Encounter Summary ---
Author Organization [facility] Address [address] [place] [address] Phone Care Team Providers Care Flotation Tender Helper Name Role Phone Jesus Alberto Smith MD Primary Care Provider [phone] Encounter Details Date Type Department Care Team (Late st Contact Info) Description 05/04/2019 2:00 PM CDT Office Visit [facility] Bone Marrow Transplant [address] [facility] Advanced Medicine 7th Floor, [place] [address] Kristen Mancera MD [address] DIV IM BONE MARROW TRANSPLANT, [address] [place], [place] [phone] Neutropenia, unspecified type (CMS/HCC) (Primary Dx) Social History Tobacco Use Types Packs/Day Years Used Date Smoking Tobacco: Never Smokeless Tobacco: Never Comments Unknown Sex and Gender Information Value Date Recorded Sex Assigned at Not on file 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 Gender Identity Not on file Sexual Orientation Not on file documented as of this encounter Last Filed Vital Signs Vital Sign Reading Time Taken Comments Blood Pressure 130/79 05/04/2019 2:00 PM CDT Pulse 75 05/04/2019 2:00 PM CDT Temperature 36.6 ??C (97.9 ??F) 05/04/2019 2:00 PM CD T Respiratory Rate 18 05/04/2019 2:00 PM CDT Oxygen Saturation 99% 05/04/2019 2:00 PM CDT Inhaled Oxygen Concentration - - Weight 55.8 kg (123 lb 1.6 oz) 05/04/2019 2:00 P M CDT Height - - Body Mass Index 22.34 01/17/2019 10:21 AM CDT documented in this encounter Progress Notes * Lolita Barrera NP - 05/04/2019 2:00 PM CDT BMT Progress Note No history exists. [...] homozygotemutation MTHFR. Genoptix panel is negative. She had an ear infection which required two courses of antibiotics earlier this year. Since that time, she has no infections, fevers or chills. No nausea, vomiting or diarrhea. She feels very well overall. Allergies Allergen Reactions ??? Ibuprofen Rash ??? Tolmetin Unknown Outpatient Encounter Medications as of 05/04/2019: ??? ALPRAZolam (XANAX) 0.25 mg tablet, TAKE [...] Performance Status: ECOG 0 Objective Vitals: BP: 130/79 Temp: 36.6 ??C (97.9 ??F) Temp src: Oral Pulse: 75 Resp: 18 SpO2: 99 % Weight: 55.8 kg (123 lb 1.6 oz) Physical exam: General: Well appearing, in [...] aredisplayed. Labs - Hematology Latest Ref Range 01/17/19 05/04/19 WBC 3.8 - 9.8 K/cumm 4.0 3.5 (A) Total Hb, POC 12.1 - 15.1 g/dL 14.1 13.6 Hct 36.1 - 44.3 % 42.6 39.8 Plt 140 - 440 K/cumm 355 233 Neutrophil abs 1.8 - 6.6 K/cumm 1.9 1.4 (A) (A) Abnormal value Comments are available for some flowsheets but are not being displayed. Chem/LFT Lab History Some values may be hidden. Unless noted otherwise, only the newest values recorded on each date aredisplayed. Labs-Chem/LFT Latest Ref Range 01/17/19 Sodium 135 - 145 mmol/L 140 Creatinine 0.60 - 1.10 mg/dL 0.70 Bilirubin, total 0.1 - 1.2 mg/dL 0.6 AST 10 - 45 Units/L 16 ALT 7 - 45 Units/L 14 CrCl- Actual Body Weight (Cockcroft-Gault) 84.9 Assessment/Plan Neutropenia with MTHFR mutation. Her ANC is 1.4 today, counts are stable. She has no infections. Roxi continue to monitor. Follow up. She will return to our clinic in six months. She knows to call us with any questions or concerns. documented in this encounter Plan of Treatment Not on file documented as of this encounter Results * CBC with auto differential (05/16/2020 9:58 AM CDT) WBC 4.0 3.8 - 9.8 K/cumm [facility] Comment:Testing performed by : [facility], [address] [place], [place] [phone] Hgb 14.0 12.1 - 15.1 g/dL [facility] Comment:Testing performed by : [facility], [address] [place], [place] [phone] Hct 41.4 36.1 - 44.3 % [facility] Comment:Testing performed by : [facility], [address] [place], [place] [phone] Plt 229 140 - 440 K/cumm [facility] Comment:Testing performed by : [place] [phone] MPV 8.1 6.8 - 10.4 fL [facility] Comment:Testing performed by : [facility], [address] [place], [place] [phone] RBC 4.37 3.90 - 5.00 M/cumm [facility] Comment:Testing performed by : [place] [phone] MCV 94.8 80.0 - 97.6 fL [facility] Comment:Testing performed by : [place] [phone] MCH 31.9 26.7 - 33.7 pg [facility] Comment:Testing performed by : [facility], [address] [place] [phone] MCHC 33.7 32.7 - 35.5 g/dL [facility] Comment:Testing performed by : [place] [phone] RDW CV 12.5 11.8 - 14.6 % [facility] Comment:Testing performed by : [address] [phone] NRBC abs 0.00 0.00 - 0.01 K/cumm [facility] Comment:Testing performed by : [facility], [address] [place] [phone] Blood specimen (specimen) 05/16/2020 9:58 AM CDT 05/16/2020 10:02 AM CDT Lolita Barrera [facility] LAB BLOOD ORDERABLES Final Result [facility] Department [place] [address] * (ABNORMAL) Comprehensive metabolic panel (05/16/2020 9:58 AM CDT) Sodium 141 135 - 145 mmol/L [facility] Comment:Testing performed by : [facility], [address] [place] [phone] Potassium, pl 4.7 3.3 - 4.9 mmol/L [facility] Comment:Testing performed by : [facility], [address] [place] [phone] Chloride 104 97 - 110 mmol/L [facility] Comment:Testing performed by : [address] [phone] CO2 29 22 - 32 mmol/L [facility] Comment:Testing performed by : [facility], [address] [place] [phone] Anion gap 8 2 - 15 mmol/L [facility] Comment:Testing performed by : [facility], [address] [place] [phone] BUN 11 8 - 25 mg/dL [facility] Comment:Testing performed by : [facility], [address] [place] [phone] Creatinine 0.64 0.60 - 1.10 mg/dL [facility] Comment:Testing performed by : [facility], [address] [place] [phone] Glucose 81 70 - 199 mg/dL [facility] Comment: [...] was last revised 2017. Testing performed by: [facility], [address] [place], [place] [phone] Calcium 9.4 8.5 - 10.3 mg/dL [facility] Comment:Testing performed by : [place] [phone] Bilirubin, total 0.2 0.1 - 1.2 mg/dL [facility] Comment:Testing performed by : [place] [phone] Protein, pl 6.8 6.5 - 8.5 g/dL [facility] Comment:Testing performed by : [address] [phone] Albumin 4.6 3.5 - 5.0 g/dL [facility] Comment:Testing performed by : [address] [phone] Alk phos 38(L) 40 - 130 Units/L [facility] Comment:Testing performed by : [address] [phone] ALT 8 7 - 45 Units/L [facility] Comment:Testing performed by : [address] [phone] AST 14 10 - 45 Units/L [facility] Comment:Testing performed by : [address] [phone] Blood specimen (specimen) 05/16/2020 9:58 AM CDT 05/16/2020 10:02 AM CDT us Lolita Barrera NP LAB BLOOD ORDERABLES Final Result [facility] Department [place] [address] * Lactate dehydrogenase (LD) (05/16/2020 9:58 AM CDT) Lactate dehydrogenase (LDH) 126 100 - 250 Units/L [facility] Comment:Testing performed by : [facility], [address] [place] [phone] Blood specimen (specimen) 05/16/2020 9:58 AM CDT 05/16/2020 10:02 AM CDT us Lolita Barrera [facility] LAB BLOOD ORDERABLES Final Result [facility] [place] [address] documented in this encounter Visit Diagnoses Diagnosis Neutropenia, unspecified type (HCC)- Primary documented in this encounter Orders Appointment Requests Count Last Ordered Date Fi rst Ordered Date ONCBCN CLINIC APPOINTMENT REQUEST 1 019 documented in this encounter Care Teams Flotation Tender Helper Relationship Specialty Start Date End Date Jesus Alberto Smith MD PCP - General 11/04/17 04/06/21 documented as of this encounter
--- OUTSIDE RECORDS SUMMARY | 2024-10-06 07:08 | XMS_ITS | Encounter Summary ---
Author Organization [facility] Address [address] [place] [address] Phone Care Team Providers Care Fisheries Manager Name Role Phone Jesus Alberto Smith MD Primary Care Provider [phone] Encounter Details Date Type Department Care Team (Late st Contact Info) Description 05/09/2020 Telephone [facility] Bone Marrow Transplant [address] [facility] Advanced Medicine 7th Floor, [place] [phone] Kristen Mancera MD [address] DIV IM BONE MARROW TRANSPLANT, [address] [place], [place] [phone] Social History Tobacco Use Types Packs/Day Years Used Date Smoking Tobacco: Never Smokeless Tobacco: Never Comments Unknown Sex and Gender Information Value Date Recorded Sex Assigned at Not on file 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 * Telephone Encounter - Sepideh Gonzalez - 05/09/2020 8:57 AM CDT Pt need to reschedule today apt. documented in this encounter Plan of Treatment Not on file documented as of this encounter Visit Diagnoses Not on filedocumented in this encounter Care Teams Fisheries Manager Relationship Specialty Start Date End Date Jesus Alberto Smith MD PCP - General 11/04/17 04/06/21 documented as of this encounter
--- OUTSIDE RECORDS SUMMARY | 2024-10-06 07:08 | XMS_ITS | Encounter Summary ---
Author Organization [facility] Address [address] [place] [address] Phone Care Team Providers Care Tacking Stitch Remover Name Role Phone Jesus Alberto Smith MD Primary Care Provider [phone] Reason for Visit * Oncology (Routine) - Closed Specialty Diagnoses / Procedures Referred By Contac t Referred To Contact Lab Diagnoses Neutropenia, unspecified type (HCC) LAB ONLY Procedures ONCBCN LAB APPOINTMENT ARM DRAW Kristen Mancera MD [address] DIV IM BONE MARROW TRANSPLANT, [address] [place] [address] Phone: tel: fax: [facility] Oncology [facility] 7th [place] [address] [place] [address] Phone: tel: Referral ID Status Reason Start Date Expiration Date V isits Requested Visits Authorized [id number] Closed Specialty Services Required 11/03/2018 05/14/[phone] Encounter Details Date Type Department Care Team (Late st Contact Info) Description 05/04/2019 1:30 PM CDT Lab [facility] Oncology [address] [facility] Advanced Medicine 7th [place] [address] [place] [id number] Kristen Mnacera MD [address] DIV IM BONE MARROW TRANSPLANT, [address] [place] [address] Neutropenia, unspecified type (CMS/HCC) Discharge Disposition: Discharge to home or self care Social History Tobacco Use Types Packs/Day Years Used Date Smoking Tobacco: Never Smokeless Tobacco: Never Comments Unknown Sex and Gender Information Value Date Recorded Sex Assigned at Not on file 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 Gender Identity Not on file Sexual Orientation Not on file documented as of this encounter Discharge Disposition Disposition Code Departure Means Destination Discharge to home or self care documented in this encounter Plan of Treatment Not on file documented as of this encounter Procedures Procedure Name Priority Date/Time Associated Diagnosis Comments DIFFERENTIAL AUTO Routine 05/04/2019 1:5 7 PM CDT Neutropenia, unspecified type (CMS/HCC) CBC WITH AUTO DIFFERENTIAL Routine 05/04/2019 1:57 PM CDT Neutropenia, unspecified type (CMS/HCC) LACTATE DEHYDROGENASE Routine 05/04/2019 1:56 PM CDT Neutropenia, unspecified type (CMS/HCC) COMPREHENSIVE METABOLIC PANEL Routine 05/04/2019 1:56 PM CDT Neutropenia, unspecified type (CMS/HCC) documented in this encounter Results * (ABNORMAL) Differential, auto (05/04/2019 1:57 PM CDT) Neutrophil abs 1.4(L) 1.8 - 6.6 K/cumm [facility] Comment:Testing performed by : [facility], [address] [place] [phone] Lymphocyte abs 1.3 1.2 - 3.3 K/cumm [facility] Comment:Testing performed by : [facility], [address] [place] [phone] Monocyte abs 0.6 0.2 - 1.2 K/cumm [facility] Comment:Testing performed by : [facility], [address] [place] [phone] Eosinophil abs 0.1 0.0 - 0.5 K/cumm [facility] Comment:Testing performed by : [facility], [address] [place] [phone] Basophil abs 0.1 0.0 - 0.2 K/cumm [facility] Comment:Testing performed by : [facility], [address] [place] [phone] Neutrophil pct 38.7 % JAG [facility] Comment: Interpretive Data Percent cell count reference ranges are not reported, since discordance with absolute values may lead to misinterpretation of CBC data. Current Interpretive Data was last revised on 2018. Testing performed by: [facility], [address] [place] [phone] Lymphocyte pct 37.5 % JAG [facility] Comment: Interpretive Data Percent cell count reference ranges are not reported, since discordance with absolute values may lead to misinterpretation of CBC data. Current Interpretive Data was last revised on 2018. Testing performed by: [facility], [address] [place] [phone] Monocyte pct 18.0 % [facility]AG [facility] Comment:Testing performed by : [facility], [address] [place] [phone] Eosinophil pct 3.7 % [facility]AG [facility] Comment:Testing performed by : [facility], [address] [place] [phone] Basophil pct 2.1 % [facility] Comment:Testing performed by : [address] [phone] Blood specimen (specimen) 05/04/2019 1:57 PM CDT 05/04/2019 1:59 PM CDT us Kristen Mancera MD LAB BLOOD ORDERABLES Final Resul t [facility]AG [facility] Department [place] [address] * (ABNORMAL) CBC with auto differential (05/04/2019 1:57 PM CDT) WBC 3.5(L) 3.8 - 9.8 K/cumm [facility]AG [facility] Comment:Testing performed by : [facility], [address] [place] [phone] Hgb 13.6 12.1 - 15.1 g/dL [facility] Comment:Testing performed by : [facility], [address] [place], [place] [phone] Hct 39.8 36.1 - 44.3 % CERNER [facility] Comment:Testing performed by : [facility], [address] [place], [place] [phone] Plt 233 140 - 440 K/cumm CERNER [facility] Comment:Testing performed by : [place] [address] MPV 8.5 6.8 - 10.4 fL CERLIZZY [facility]J Comment:Testing performed by : [facility], [address] [place] [address] RBC 4.28 3.90 - 5.00 M/cumm CERLIZZY BJ Comment:Testing performed by : [place] [address] MCV 93.0 80.0 - 97.6 fL CERLIZZY BJ Comment:Testing performed by : [place] [phone] MCH 31.7 26.7 - 33.7 pg CERNER [facility]J Comment:Testing performed by : [facility], [address] [place], [place] [phone] MCHC 34.1 32.7 - 35.5 g/dL CERNER [facility]J Comment:Testing performed by : [place] [address] RDW CV 12.5 11.8 - 14.6 % CERNER [facility]J Comment:Testing performed by : [address] NRBC abs 0.00 0.00 - 0.01 K/cumm CERLIZZY BJ Comment:Testing performed by : [place] [phone] Blood specimen (specimen) 05/04/2019 1:57 PM CDT 05/04/2019 1:59 PM CDT us Kristen Mancera MD LAB BLOOD ORDERABLES Final Resul t [facility]AG [facility] Department [place] [address] * (ABNORMAL) Comprehensive metabolic panel (05/04/2019 1:56 PM CDT) Sodium 139 135 - 145 mmol/L [facility] Potassium, pl 4.6 3.3 - 4.9 mmol/L [facility] Chloride 103 97 - 110 mmol/L [facility] CO2 28 22 - 32 mmol/L [facility] Anion gap 8 2 - 15 mmol/L [facility] BUN 13 8 - 25 mg/dL [facility] Creatinine 0.78 0.60 - 1.10 mg/dL [facility] Glucose 71 70 - 199 mg/dL [facility] Comment: Interpretive Data Fasting glucose >/= [...] Current interpretive data was last revised 2017. Calcium 9.6 8.5 - 10.3 mg/dL [facility] Bilirubin, total 0.6 0.1 - 1.2 mg/dL [facility] Protein, pl 7.3 6.5 - 8.5 g/dL [facility] Albumin 4.6 3.5 - 5.0 g/dL [facility] Alk phos 38(L) 40 - 130 Units/L [facility] ALT 13 7 - 45 Units/L [facility] AST 21 10 - 45 Units/L [facility] Blood specimen (specimen) 05/04/2019 1:56 PM CDT 05/04/2019 2:51 PM CDT us Kristen Mancera MD LAB BLOOD ORDERABLES Final Resul t [facility] Department [place] [address] * Lactate dehydrogenase (LD) (05/04/2019 1:56 PM CDT) Lactate dehydrogenase (LDH) 236 100 - 250 Units/L [facility] Blood specimen (specimen) 05/04/2019 1:56 PM CDT 05/04/2019 2:51 PM CDT us Kristen Mancera MD LAB BLOOD ORDERABLES Final Resul t [facility] [place] [address] documented in this encounter Visit Diagnoses Diagnosis Neutropenia, unspecified type (HCC) documented in this encounter Orders Appointment Requests Count Last Ordered Date Fi rst Ordered Date ONCBCN LAB APPOINTMENT 1 05/04/2019 documented in this encounter Care Teams Tacking Stitch Remover Relationship Specialty Start Date End Date Jesus Alberto Smith MD PCP - General 11/04/17 04/06/21 documented as of this encounter
--- OUTSIDE RECORDS SUMMARY | 2024-10-06 07:08 | XMS_ITS | Encounter Summary ---
Author Organization [facility] Address [address] [facility] [address] [place] [address] Phone Care Team Providers Care Home Demonstrator Name Role Phone Jesus Alberto Smith MD Primary Care Provider [phone] Encounter Details Date Type Department Care Team (Late st Contact Info) Description 01/17/2019 10:30 AM CDT Office Visit [facility] Bone Marrow Transplant [address] [facility] Advanced Medicine 7th [place], [place] [address] Lolita Barrera, DERICK [address] [facility] [phone] [place], [place] [id number] Neutropenia, unspecified type (CMS/HCC) (Primary Dx) Social History Tobacco Use Types Packs/Day Years Used Date Smoking Tobacco: Never Smokeless Tobacco: Never Tobacco Cessation:Counseling Given: No Comments Unknown Sex and Gender Information Value Date Recorded Sex Assigned at Not on file Legal Sex Female 10:[address]ER Gender Identity Not on file Sexual Orientation Not on file documented as of this encounter Last Filed Vital Signs Vital Sign Reading Time Taken Comments Blood Pressure 134/84 01/17/2019 10:21 AM CDT Pulse 67 01/17/2019 10:21 AM CDT Temperature 36.8 ??C (98.2 ??F) 01/17/2019 10:21 AM C DT Respiratory Rate 16 01/17/2019 10:21 AM CDT Oxygen Saturation 100% 01/17/2019 10:21 AM CDT Inhaled Oxygen Concentration - - Weight 54.2 kg (119 lb 6.4 oz) 01/17/2019 10:21 AM CDT Height 158.1 cm (5' 2.24 ) 01/17/2019 10:21 AM Xiomara DT Body Mass Index 21.67 01/17/2019 10:21 AM CDT documented in this encounter Ordered Prescriptions Prescription Sig Dispense Quantity Refills Last Filled Start Date End Date amoxicillin-clavul anate (AUGMENTIN) 875-125 mg per tabletIndications: Neutropenia, unspecified type (HCC) Take 1 tablet by mouth 2 (two) times a day for 5 days 10 tablet 01/17/2019 01/22/2019 documented in this encounter Progress Notes * Lolita Barrera, DERICK - 01/17/2019 10:30 AM CDT BMT Progress Note No history exists. Active Treatment & Therapy Plans for Karen Medeiros Melissa A does not have any active plans of the following types: Oncology Chemotherapy Treatment, Oncology Treatment (2), Oncology Treatment (3), Oncology Supportive Care, Specialty InfusionTreatment, Blood Products, BMT, Hematology Subjective Interval History Ms. Medeiros is here today for unscheduled follow up. She has a history of neutropenia with homozygote mutation MTHFR. [employer] panel is negative. She is here today for left ear pain and infection. She was given a 7 day course of augmentin from an urgent care which she completed earlier this week. Today, the pain is worse. She has bloody drainage. She reports low grade fevers. She has been taking motrin for the pain. No nausea, vomiting or diarrhea. Allergies Allergen Reactions ??? Ibuprofen Rash ??? Tolmetin Unknown Outpatient Encounter Medications as of 01/17/2019: ??? ALPRAZolam (XANAX) 0.25 mg tablet, TAKE 1 TABLET BY MOUTH TWICE A DAY NEEDED FOR ANXIETY, Disp: , Rfl: 1 ??? amoxicillin-clavulanate (AUGMENTIN) 875-125 mg per tablet, Take 1 tablet by mouth 2 (two) timesa day for 5 days, Disp: 10 tablet, Rfl: 0 ??? levonorgestrel (MIRENA) IUD, 1 Device by [...] 1 TABLET AT BEDTIME., Disp: , Rfl: ??? [DISCONTINUED] amoxicillin-clavulanate (AUGMENTIN) 875-125 mg per tablet, TK 1 T PO BID WITH MORNING AND MARION MEAL FOR 7 DAYS, Disp: , Rfl: 0 Review of Systems Review of systems per HPI and otherwise all systems are negative Performance Status: ECOG 0 Objective Vitals: BP: 134/84 Temp: 36.8 ??C (98.2 ??F) Temp src: Oral Pulse: 67 Resp: 16 SpO2: 100 % Height: 158.1 cm (5' 2.24 ) Weight: 54.2 kg (119 lb 6.4 oz) Physical exam: General: Well appearing, in [...] aredisplayed. Labs - Hematology Latest Ref Range 05/05/18 01/17/19 WBC 3.8 - 9.8 K/cumm 4.0 4.0 Total Hb, POC 12.1 - 15.1 g/dL 13.5 14.1 Hct 36.1 - 44.3 % 40.6 42.6 Plt 140 - 440 K/cumm 251 355 Neutrophil abs 1.8 - 6.6 K/cumm 1.5 (A) 1.9 (A) Abnormal value Comments are available for some flowsheets but are not being displayed. Chem/LFT Lab History Some values may be hidden. Unless noted otherwise, only the newest values recorded on each date aredisplayed. Labs-Chem/LFT Latest Ref Range 05/05/18 01/17/19 Sodium 135 - 145 mmol/L 142 140 Creatinine 0.60 - 1.10 mg/dL 0.70 0.70 Bilirubin, total 0.1 - 1.2 mg/dL 0.4 0.6 AST 10 - 45 Units/L 17 16 ALT 7 - 45 Units/L 14 14 CrCl- Actual Body Weight (Cockcroft-Gault) 84.6 84.9 Tacrolimus level:No results found for: TACRORDM, TACROPEAK, TACROTR Sirolimus level: No results found for: SIROLIMUS Cyclosporine level: No results found for: CYCLOSPPEAK, CYCLOSPTRGH Assessment/Plan 1. Ear pain. There is bloody drainage and continued pain to her left ear. It looks as though tympanic membrane is ruptured. WE will refer her to ENT. I will also extend her course of augmentin x 5 days. 2. Neutropenia. Her blood counts are stable today, ANC 1.9 3. Follow up. She will return to our clinic in April. She knows to call us with any questions or concerns. documented in this encounter Plan of Treatment Not on file documented as of this encounter Results * Respiratory pathogen PCR Nasopharyngeal (01/17/2019 9:57 AM CDT) Report Final Report: Respiratory Pathogen nucleic acids NOT DETECTED (NEGATIVE) [facility] Nasopharyngeal 01/17/2019 9: 57 AM CDT 01/17/2019 10:30 AM CDT Narrative [facility] - 01/17/2019 1:10 PM CDT The [employer] FilmArray Respiratory Panel (RP2) assay is a multiplexed nucleic acid test capable of simultaneous qualitative detection and identification of multiple respiratory viral and bacterial nucleic acids. The following bacteria, viruses and virus subtypes can be identified using the FilmArray RP assay: Bordetella pertussis, Bordetella parapertussis, Chlamydophila pneumoniae, Mycoplasma pneumoniae, Adenovirus, Coronavirus HKU1, Coronavirus NL63, Coronavirus 229E, Coronavirus OC43, Influenza A, Influenza A subtype H1, Influenza A subtype H3, Influenza A subtype 2009 H1, Influenza B, Metapneumovirus, Parainfluenza 1, Parainfluenza 2, Parainfluenza 3, Parainfluenza 4, RSV, Rhinovirus/Enterovirus. Due to the genetic similarity between human Rhinovirus and Enterovirus, the FilmArray RP assay cannot reliably differentiate them. Coronavirus OC43 may cross-react with some isolates of Coronavirus HKU1. ??A dual positive result may be due to cross-reactivity or may indicate a co-infection. The detection and identification of specific viral and bacterial nucleic acids from individuals exhibiting signs and symptoms of a respiratory infection aids in the diagnosis of respiratory infection if used in conjunction with other clinical and epidemiological information. ??The results of this test should not be used as the sole basis for diagnosis, treatment, or other management decisions. ??Negative results in the setting of a respiratory illness may be due to infection with pathogens that are not detected by this test. ??Positive results do not rule out infection/co- infection with other organisms. ??The agent(s) detected by the FilmArray RP may not be the definite cause of disease. ??Additional testing (lab, imaging, etc) may be necessary when evaluating a patient with possible respiratory tract infection. The FilmArray RP assay is FDA cleared for WARE TESTER swabs. ??Additional sample types have been validated according to CLIA regulations. The performance characteristics of this assay have been determined by [facility] Molecular Infectious Disease Laboratory. Current interpretive data was last revised on 2017. Lolita Barrera WARE TESTER LAB MICROBIOLOGY - [facility] ORDERABLES Final Result JAG [facility] [place] [address] documented in this encounter Visit Diagnoses Diagnosis Neutropenia, unspecified type (HCC) Neutropenia, unspecified type (HCC)- Primary documented in this encounter Discontinued Medications Medication Sig Discontinue Reason Start Date End Da te amoxicillin-clavulanate (AUGMENTIN) 875-125 mg per tablet TK 1 T PO BID WITH MORNING AND MARION MEAL FOR 7 DAYS 01/09/2019 01/17/2019 documented as of this encounter Historical Medications * This list may reflect changes made after this encounter. amoxicillin-clavu lanate (AUGMENTIN) 875-125 mg per tablet TK 1 T PO BID WITH MORNING AND MARION MEAL FOR 7 DAYS 0 01/09/2019 01/17/2019 ALPRAZolam (XANAX) 0.25 mg tabletIndications :Neutropenia, unspecified type (HCC) TAKE 1 TABLET BY MOUTH TWICE A DAY NEEDED FOR ANXIETY 1 10/17/2018 08/31/2021 added in this encounter Care Teams Home Demonstrator Relationship Specialty Start Date End Date Jesus Alberto Smith MD PCP - General 11/04/17 04/06/21 documented as of this encounter
--- OUTSIDE RECORDS SUMMARY | 2024-10-06 07:09 | XMS_ITS | Encounter Summary ---
Author Organization [facility] Facility Care Team Providers Care Receiving Inspector Name Role Phone Unavailable Primary Care Provider Unavailabl e Encounter Details Date Type Department Care Team (Late st Contact Info) Description 11/19/2016 11:41 AM COLLAR STITCHER - 11/19/2016 11:59 PM COLLAR STITCHER Hospital Encounter [facility] Rober Beaver MD [address] [facility] [address] [place] [address] Encounter for screening mammogram for malignant neoplasm of breast Social History Tobacco Use Types Packs/Day Years Used Date Smoking Tobacco: Never Assessed Comments Unknown Sex and Gender Information Value Date Recorded Sex Assigned at Not on file Legal Sex Female 10:19 PM COLLAR STITCHER Gender Identity Not on file Sexual Orientation Not on file documented as of this encounter Medications at Time of Discharge levonorgestrel (MIRENA) IUDIndications:Abn ormal Uterine Bleeding, Contraception 1 each by intrauterine route once 02/22/2014 documented as of this encounter Plan of Treatment Not on file documented as of this encounter Procedures Procedure Name Priority Date/Time Associated Diagnosis Comments SCREENING MAMMOGRAM Routine 11/19/2016 6 :16 PM COLLAR STITCHER documented in this encounter Results * Screening Mammogram (11/19/2016 6:16 PM COLLAR STITCHER) Anatomical Region Laterality Modality Breast N/A Mammography 11/19/2016 6:16 PM COLLAR STITCHER Narrative 11/25/2016 12:38 PM COLLAR STITCHER MITCHELL REEVES M.D. FINAL REPORT ACC# ??Date Time ??Exam [id number] Nov 19, 2016 12:16:00 [facility] [id number] [facility] Mamm helena 2v w/NIKO ?? Technologist(s): Charmaine Rose; ; EXAMINATION: ??Mammogram Technique: Bilateral Digital Breast Tomosynthesis, Bilateral C-view 2D Screening mammogram. ??Views obtained: ??bilateral craniocaudal; bilateral mediolateral oblique; bilateral craniocaudal with tomosynthesis; and bilateral mediolateral oblique with tomosynthesis. ??Computer Aided Detection was performed. Mammogram Findings: The present examination has been compared to prior imaging studies performed at [facility] on 05/30/2012, 01/05/2013 and 02/15/2014. The breasts are extremely dense, which lowers the sensitivity of mammography. There are bilateral sub-pectoral saline implants. There is no suspicious abnormality in either breast. IMPRESSION: ??Annual screening mammography is recommended. OVERALL FINAL ASSESSMENT: BI-RADS CATEGORY 1: ??Negative. Requested By: Rober Cardona ??M.D. Dictated By: ?? MITCHELL REEVES M.D. ??on Nov 25 2016 12:38P This document has been electronically signed by: MITCHELL REEVES M.D. on Nov 25 2016 12:38P [id number] Procedure Note Provider, MD Inés / Arnulfo, Edita - 03/05/2017 MITCHELL REEVES M.D. FINAL REPORT ACC# Date Time Exam [id number] Nov 19, 2016 12:16:00 [facility] [id number] Mamm helena 2v w/NIKO Technologist(s): Charmaine Rose; ; EXAMINATION: Mammogram Technique: Bilateral Digital Breast Tomosynthesis, Bilateral C-view 2D Screening mammogram. Views obtained: bilateral craniocaudal; bilateral mediolateral oblique; bilateral craniocaudal with tomosynthesis; and bilateral mediolateral oblique with tomosynthesis. Computer Aided Detection was performed. Mammogram Findings: The present examination has been compared to prior imaging studies performed at [facility] on 05/30/2012, 01/05/2013 and 02/15/2014. The breasts are extremely dense, which lowers the sensitivity of mammography. There are bilateral sub-pectoral saline implants. There is no suspicious abnormality in either breast. IMPRESSION: Annual screening mammography is recommended. OVERALL FINAL ASSESSMENT: BI-RADS CATEGORY 1: Negative. Requested By: Rober Cardona M.D. Dictated By: MITCHELL REEVES M.D. on Nov 25 2016 12:38P This document has been electronically signed by: MITCHELL REEVES M.D. on Nov 25 2016 12:38P [id number] us Not In File Miscellaneous IMG MAMMO PROCEDURES F inal Result documented in this encounter Visit Diagnoses Diagnosis Encounter for screening mammogram for malignant neoplasm of breast documented in this encounter
--- OUTSIDE RECORDS SUMMARY | 2024-10-06 07:09 | XMS_ITS | Encounter Summary ---
Author Organization [facility] Address [address] [place] [address] Phone Care Team Providers Care Application Security Specialist Name Role Phone Jesus Alberto Smith MD Primary Care Provider [phone] Reason for Visit * Oncology (Routine) - Closed Specialty Diagnoses / Procedures Referred By Contac t Referred To Contact Lab Diagnoses Neutropenia, unspecified type (HCC) LAB ONLY Procedures ONCBCN LAB APPOINTMENT ARM DRAW Kristen Mancera MD [address] DIV IM BONE MARROW TRANSPLANT[address] [place] [address] Phone: tel: fax: [facility] Oncology [address] [facility] Medicine 7th [place] [address] [place] [address] Phone: tel: Referral ID Status Reason Start Date Expiration Date V isits Requested Visits Authorized [id number] Closed Specialty Services Required 11/03/2018 05/14/[phone] Encounter Details Date Type Department Care Team (Late st Contact Info) Description 01/17/2019 9:30 AM CDT Lab [facility] Oncology [address] [facility] Advanced Medicine 7th [place] [address] [place] [id number] Kristen Mancera MD [address] DIV IM BONE MARROW TRANSPLANT, [address] [place] [address] Neutropenia, unspecified type (CMS/HCC) Discharge Disposition: Discharge to home or self care Social History Tobacco Use Types Packs/Day Years Used Date Smoking Tobacco: Never Smokeless Tobacco: Never Comments Unknown Sex and Gender Information Value Date Recorded Sex Assigned at Not on file Legal Sex Female 10:19 PM EDITOR MAP Gender Identity Not on file Sexual Orientation Not on file documented as of this encounter Discharge Disposition Disposition Code Departure Means Destination Discharge to home or self care documented in this encounter Plan of Treatment Not on file documented as of this encounter Procedures Procedure Name Priority Date/Time Associated Diagnosis Comments RESPIRATORY PATHOGEN PANEL Routine 01/17/2019 9:57 AM CDT Neutropenia, unspecified type (CMS/HCC) LACTATE DEHYDROGENASE Routine 01/17/2019 9:52 AM CDT Neutropenia, unspecified type (CMS/HCC) COMPREHENSIVE METABOLIC PANEL Routine 01/17/2019 9:52 AM CDT Neutropenia, unspecified type (CMS/HCC) DIFFERENTIAL AUTO Routine 01/17/2019 9:5 1 AM CDT Neutropenia, unspecified type (CMS/HCC) CBC WITH AUTO DIFFERENTIAL Routine 01/17/2019 9:51 AM CDT Neutropenia, unspecified type (CMS/HCC) documented in this encounter Results * Respiratory pathogen PCR Nasopharyngeal (01/17/2019 9:57 AM CDT) Report Final Report: Respiratory Pathogen nucleic acids NOT DETECTED (NEGATIVE) [facility] Nasopharyngeal 01/17/2019 9: 57 AM CDT 01/17/2019 10:30 AM CDT Narrative [facility] - 01/17/2019 1:10 PM CDT The [place] FilmArray Respiratory Panel (RP2) assay is a [...] FilmArray RP assay is FDA cleared for TONGUE AND GROOVE MACHINE SETTER swabs. ??Additional sample types have been validated according to CLIA regulations. The performance characteristics of this assay have been determined by [facility] Molecular Infectious Disease Laboratory. Current interpretive data was last revised on 2017. Lolita Barrera TONGUE AND GROOVE MACHINE SETTER LAB MICROBIOLOGY - [facility] ORDERABLES Final Result [facility] One [facility] Department [place] [address] * Comprehensive metabolic panel (01/17/2019 9:52 AM CDT) Sodium 140 135 - 145 mmol/L [facility] Potassium, pl 4.4 3.3 - 4.9 mmol/L [facility] Chloride 104 97 - 110 mmol/L [facility] CO2 27 22 - 32 mmol/L [facility] Anion gap 9 2 - 15 mmol/L [facility] BUN 11 8 - 25 mg/dL [facility] Creatinine 0.70 0.60 - 1.10 mg/dL [facility] Glucose 92 70 - 199 mg/dL [facility] Comment: Interpretive Data Fasting glucose >/= [...] interpretive data was last revised 2017. Calcium 9.3 8.5 - 10.3 mg/dL [facility] Bilirubin, total 0.6 0.1 - 1.2 mg/dL [facility] Protein, pl 7.5 6.5 - 8.5 g/dL [facility] Albumin 4.6 3.5 - 5.0 g/dL [facility] Alk phos 41 40 - 130 Units/L [facility] ALT 14 7 - 45 Units/L [facility] AST 16 10 - 45 Units/L [facility] Blood specimen (specimen) 01/17/2019 9:52 AM CDT 01/17/2019 10:06 AM CDT Narrative [facility] - 01/17/2019 10:35 AM CDT us Kristen Mancera MD LAB BLOOD ORDERABLES Final Resul t [facility] One [facility] Department [place] [address] * Lactate dehydrogenase (LD) (01/17/2019 9:52 AM CDT) Lactate dehydrogenase (LDH) 168 100 - 250 Units/L [facility] Blood specimen (specimen) 01/17/2019 9:52 AM CDT 01/17/2019 10:06 AM CDT Narrative [facility] - 01/17/2019 10:35 AM CDT us Kristen Mancera MD LAB BLOOD ORDERABLES Final Resul t [facility] One [facility] Department [place] [address] * Differential, auto (01/17/2019 9:51 AM CDT) Neutrophil abs 1.9 1.8 - 6.6 K/cumm [facility] Comment:Testing performed by : [facility], [address] [place] [phone] Lymphocyte abs 1.4 1.2 - 3.3 K/cumm [facility] Comment:Testing performed by : [facility], [address] [place] [phone] Monocyte abs 0.4 0.2 - 1.2 K/cumm [facility] Comment:Testing performed by : [facility], [address] [place] [phone] Eosinophil abs 0.2 0.0 - 0.5 K/cumm [facility] Comment:Testing performed by : [facility], [address] [place] [phone] Basophil abs 0.1 0.0 - 0.2 K/cumm [facility] Comment:Testing performed by : [facility], [address] [place] [phone] Neutrophil pct 47.2 % [facility] Comment: Interpretive Data Percent cell count reference ranges are not reported, since discordance with absolute values may lead to misinterpretation of CBC data. Current Interpretive Data was last revised on 2018. Testing performed by: [facility], [address] [place] [phone] Lymphocyte pct 34.5 % [facility] Comment: Interpretive Data Percent cell count reference ranges are not reported, since discordance with absolute values may lead to misinterpretation of CBC data. Current Interpretive Data was last revised on 2018. Testing performed by: [facility], [address] [place] [phone] Monocyte pct 10.6 % [facility] Comment:Testing performed by : [facility], [address] [place] [phone] Eosinophil pct 5.9 % [facility] Comment:Testing performed by : [facility], [address] [place] [phone] Basophil pct 1.8 % [facility] Comment:Testing performed by : [facility], [address] [place] [phone] Blood specimen (specimen) 01/17/2019 9:51 AM CDT 01/17/2019 9:56 AM CDT Narrative [facility] - 01/17/2019 10:04 AM CDT us Kristen Mancera MD LAB BLOOD ORDERABLES Final Resul t [facility] One [facility] Department [place] [address] * CBC with auto differential (01/17/2019 9:51 AM CDT) WBC 4.0 3.8 - 9.8 K/cumm [facility] Comment:Testing performed by : [facility], [address] [place] [phone] Hgb 14.1 12.1 - 15.1 g/dL [facility] Comment:Testing performed by : [facility], [address] [place] [phone] Hct 42.6 36.1 - 44.3 % [facility] Comment:Testing performed by : [facility], [address] [place] [phone] Plt 355 140 - 440 K/cumm [facility] Comment:Testing performed by : [facility], [address] [place] [phone] MPV 7.6 6.8 - 10.4 fL [facility] Comment:Testing performed by : [address] [phone] RBC 4.60 3.90 - 5.00 M/cumm [facility] Comment:Testing performed by : [facility], [address] [place] [phone] MCV 92.5 80.0 - 97.6 fL [facility] Comment:Testing performed by : [facility], [address] [place] [phone] MCH 30.5 26.7 - 33.7 pg [facility] Comment:Testing performed by : [facility], [address] [place] [phone] MCHC 33.0 32.7 - 35.5 g/dL [facility] Comment:Testing performed by : [facility], [address] [place] [phone] RDW CV 12.1 11.8 - 14.6 % [facility] Comment:Testing performed by : [facility], [address] [place] [phone] NRBC abs 0.00 0.00 - 0.01 K/cumm [facility] Comment:Testing performed by : [facility], [address] [place] [phone] Blood specimen (specimen) 01/17/2019 9:51 AM CDT 01/17/2019 9:56 AM CDT Narrative [facility] - 01/17/2019 10:04 AM CDT us Kristen Mancera MD LAB BLOOD ORDERABLES Final Resul t [facility] One [facility] Department [place] [address] documented in this encounter Visit Diagnoses Diagnosis Neutropenia, unspecified type (HCC) documented in this encounter Care Teams Application Security Specialist Relationship Specialty Start Date End Date Jesus Alberto Smith MD PCP - General 11/04/17 04/06/21 documented as of this encounter
--- OUTSIDE RECORDS SUMMARY | 2024-10-06 07:09 | XMS_ITS | Encounter Summary ---
Author Organization [facility] Healthcare Address [address] [place] [address] Care Team Providers Care Rental Management Trainee Name Role Phone Jesus Alberto Smith MD Primary Care Provider [phone] Encounter Details Date Type Department Care Team (Latest Contact Info) Description 12/20/2016 4:12 PM CDT - 12/20/2016 11:59 PM CDT Hospital Encounter [facility] OP INTERIM [phone] Jesus Alberto Smith MD [address] [address] Discharge Disposition: Discharge to home or self care Social History Tobacco Use Types Packs/Day Years Used Date Smoking Tobacco: Never Assessed Comments Unknown Sex and Gender Information Value Date Recorded Sex Assigned at Not on file Legal Sex Female 10:19 PM MANAGER WINTER Gender Identity Not on file Sexual Orientation Not on file documented as of this encounter Medications at Time of Discharge levonorgestrel (MIRENA) IUDIndications:Abn ormal Uterine Bleeding, Contraception 1 each by intrauterine route once 02/22/2014 documented as of this encounter Discharge Disposition Disposition Code Departure Means Destination Discharge to home or self care documented in this encounter Plan of Treatment Not on file documented as of this encounter Visit Diagnoses Not on filedocumented in this encounter Care Teams Rental Management Trainee Relationship Specialty Start Date End Date Jesus Alberto Smith MD PCP - General 12/13/16 02/10/17 documented as of this encounter
--- OUTSIDE RECORDS SUMMARY | 2024-10-06 07:09 | XMS_ITS | Encounter Summary ---
Author Organization [facility] Healthcare Address [address] [place] [address] Care Team Providers Care Enforcement Manager Name Role Phone Unknown, Notinfile Primary Care Provider Unavail Jesus Alberto Monet MD Primary Care Provider [phone] Encounter Details Date Type Department Care Team (Latest Contact Info) Description 10/31/2017 10:24 AM BRINE TANK TENDER - 11/04/2017 11:59 PM [facility] Hospital Encounter [facility] OP INTERIM [phone] Kristen Mancera MD [address] IM BONE MARROW TRANSPLANT, [address] [place] [address] Discharge Disposition: Discharge to home or self care Social History Tobacco Use Types Packs/Day Years Used Date Smoking Tobacco: Never Comments Unknown Sex and Gender Information Value Date Recorded Sex Assigned at Not on file Legal Sex Female 10:19 PM BRINE TANK TENDER Gender Identity Not on file Sexual Orientation Not on file documented as of this encounter Medications at Time of Discharge levonorgestrel (MIRENA) IUDIndications:Abn ormal Uterine Bleeding, Contraception 1 each by intrauterine route once 02/22/2014 tretinoin (RETIN-A) 0.025 % creamIndications:N eutropenia, unspecified type (HCC) Apply no more than a pea-sized amount to clean, dry face once daily before bedtime. 02/11/2017 04/07/20 21 triamcinolone (KENALOG) 0.1 % creamIndications:N eutropenia, unspecified type (HCC) apply to affected areas of trunk twice daily as needed for redness/itching 02/11/2017 04/20/20 22 documented as of this encounter Discharge Disposition Disposition Code Departure Means Destination Discharge to home or self care documented in this encounter Plan of Treatment Not on file documented as of this encounter Procedures Procedure Name Priority Date/Time Associated Diagnosis Comments LACTATE DEHYDROGENASE Routine Gen Lab 11/04/2017 2:20 PM BRINE TANK TENDER COMPREHENSIVE METABOLIC PANEL Routine Gen Lab 11/04/2017 2:20 PM BRINE TANK TENDER CBC WITH AUTO DIFFERENTIAL Routine Gen Lab 11/04/2017 2:02 PM BRINE TANK TENDER DISCHARGE LABORATORY CUMULATIVE REPORT 10/31/2017 12:00 AM BRINE TANK TENDER documented in this encounter Results * Lactate dehydrogenase (LD) (11/04/2017 2:20 PM BRINE TANK TENDER) Pathologist [facility] Lactate dehydrogenase (LDH) 136 100 - 250 Units/L [facility] Blood specimen (specimen) 11/04/2017 2:20 PM BRINE TANK TENDER 11/04/2017 2:25 PM BRINE TANK TENDER Narrative [facility] - 11/04/2017 2:50 PM BRINE TANK TENDER us Kristen Mancera MD LAB BLOOD ORDERABLES Final Resul t [facility] One [facility] [place] [address] * Comprehensive metabolic panel (11/04/2017 2:20 PM BRINE TANK TENDER) Sodium 138 135 - 145 mmol/L [facility] Potassium, pl 3.8 3.3 - 4.9 mmol/L [facility] CO2 28 22 - 32 mmol/L [facility] BUN 9 8 - 25 mg/dL [facility] Glucose 132 70 - 199 mg/dL [facility] Comment: Interpretive Data Fasting glucose >/= [...] Current interpretive data was last revised 2017. Creatinine 0.63 0.60 - 1.10 mg/dL [facility] Calcium 9.2 8.5 - 10.3 mg/dL [facility] Chloride 102 97 - 110 mmol/L [facility] Albumin 4.4 3.5 - 5.0 g/dL [facility] AST 18 10 - 45 Units/L [facility] ALT 13 7 - 45 Units/L [facility] Alk phos 41 40 - 130 Units/L [facility] Bilirubin, total 0.6 0.1 - 1.2 mg/dL [facility] Protein, pl 7.3 6.5 - 8.5 g/dL [facility] Anion gap 8 2 - 15 mmol/L [facility] Blood specimen (specimen) 11/04/2017 2:20 PM BRINE TANK TENDER 11/04/2017 2:25 PM BRINE TANK TENDER Narrative [facility] - 11/04/2017 2:50 PM BRINE TANK TENDER us Kristen Mancera MD LAB BLOOD ORDERABLES Final Resul t [facility] One [facility] [place] [address] * (ABNORMAL) CBC with auto differential (11/04/2017 2:02 PM BRINE TANK TENDER) WBC 4.0 3.8 - 9.8 K/cumm [facility] RBC 4.30 3.90 - 5.00 M/cumm [facility] Hgb 12.9 12.1 - 15.1 g/dL [facility] Hct 39.4 36.1 - 44.3 % [facility] Mean Cellular Volume - CAM 91.7 80.0 - 97.6 fL [facility] Mean Cellular Hemoglobin - CAM 30.0 26.7 - 33.7 pg [facility] Mean Cellular Hemoglobin Concentration - CAM 32.7 32.7 - 35.5 g/dL [facility] Rdw 13.1 11.8 - 14.6 % [facility] Plt 259 140 - 440 K/cumm [facility] Mean Platelet Volume - CAM 8.8 6.8 - 10.4 fL [facility] Neutrophil pct 43.3 38.7 - 74.5 % [facility] Lymphocyte pct 40.7 20.0 - 54.3 % [facility] Monos 12.2 4.3 - 13.5 % [facility] Eosinophil pct 2.3 0.0 - 6.0 % [facility] Basophil pct 1.5 0.0 - 3.0 % [facility] Neutrophil abs 1.7(L) 1.8 - 6.6 K/cumm [facility] Lymphocyte abs 1.6 1.2 - 3.3 K/cumm [facility] Monocyte abs 0.5 0.2 - 1.2 K/cumm [facility] Eosinophils, abs 0.1 0.0 - 0.5 K/cumm [facility] Basophil abs 0.1 0.0 - 0.2 K/cumm [facility] NRBC 0.0 0.0 - 0.2 % [facility] NRBC abs 0.00 0.00 - 0.01 K/cumm [facility] Blood specimen (specimen) 11/04/2017 2:02 PM BRINE TANK TENDER 11/04/2017 2:02 PM BRINE TANK TENDER Narrative [facility] - 11/04/2017 2:10 PM BRINE TANK TENDER us Kristen Mancera MD LAB BLOOD ORDERABLES Final Resul t [facility] [place] [address] * DISCHARGE LABORATORY CUMULATIVE REPORT (10/31/2017 12:00 AM BRINE TANK TENDER) Narrative 10/31/2017 12:00 AM BRINE TANK TENDER Ordered by an unspecified provider. us Historical Provider LAB BLOOD ORDERABLES Anat l Result documented in this encounter Visit Diagnoses Not on filedocumented in this encounter Care Teams Enforcement Manager Relationship Specialty Start Date End Date Unknown, Notinfile PCP - General 08/05/17 11/03/17 Jesus Alberto Smith MD PCP - General 11/04/17 04/06/21 documented as of this encounter
--- OUTSIDE RECORDS SUMMARY | 2024-10-06 07:09 | XMS_ITS | Encounter Summary ---
Author Organization [facility] Healthcare Address [address] [place] [address] Care Team Providers Care Recycling Technician Name Role Phone Jesus Alberto Smith MD Primary Care Provider [phone] Encounter Details Date Type Department Care Team (Latest Contact Info) Description 12/13/2016 3:05 PM ROLLED SEAT TRIMMER - 12/13/2016 11:59 PM ROLLED SEAT TRIMMER Hospital Encounter [facility] OP INTERIM [phone] Jesus Alberto Smith MD [address] [address] Discharge Disposition: Discharge to home or self care Social History Tobacco Use Types Packs/Day Years Used Date Smoking Tobacco: Never Assessed Comments Unknown Sex and Gender Information Value Date Recorded Sex Assigned at Not on file Legal Sex Female 10:19 PM ROLLED SEAT TRIMMER Gender Identity Not on file Sexual Orientation [...] on filedocumented in this encounter Care Teams Recycling Technician Relationship Specialty Start Date End Date Jesus Alberto Smith MD PCP - General 12/13/16 02/10/17 documented as of this encounter
--- OUTSIDE RECORDS SUMMARY | 2024-10-06 07:09 | XMS_ITS | Encounter Summary ---
Author Organization [facility] Healthcare Address [address] [place] [address] Care Team Providers Care Circular Knife Machine Cutter Name Role Phone Jesus Alberto Smith MD Primary Care Provider [phone] Unknown, Notinfile Primary Care Provider Unavail able Jesus Alberto Smith MD Primary Care Provider [phone] Encounter Details Date Type Department Care Team (Latest Contact Info) Description 02/11/2017 10:34 AM CDT - 05/06/2017 11:59 PM T Hospital Encounter [facility] INTERIM [phone] Kristen Mancera MD [address] DIV IM BONE MARROW TRANSPLANT, [address] [place], [place] [id number] Discharge Disposition: Discharge to home or self care Social History Tobacco Use Types Packs/Day Years Used Date Smoking Tobacco: Never Assessed Comments Unknown Sex and Gender Information Value Date Recorded Sex Assigned at Not on file Legal Sex Female 10:19 PM ATHLETIC TURF WORKER Gender Identity Not on file Sexual [...] Diagnosis Comments LACTATE DEHYDROGENASE Routine Gen Lab 05/06/2017 8:19 AM CDT CEA Routine Gen Lab 05/06/2017 8:19 AM CDT COMPREHENSIVE METABOLIC PANEL Routine Gen Lab 05/06/2017 8:19 AM CDT MORPHOLOGY EXAM Routine Gen Lab 05/06/2017 8:11 AM CDT CBC WITH AUTO DIFFERENTIAL Routine Gen Lab 05/06/2017 8:11 AM CDT documented in this encounter Results * CEA (05/06/2017 8:19 AM CDT) CEA 1.2 0.1 - 5.0 ng/mL [facility] Comment: Interpretive Data: Reference Range: ? Non-Smokers: ??0.1 - 5.0 ng/mL ? Smokers: ?0.1 - 6.5 ng/mL ?? This test was developed and its performance characteristics determined by the [facility] in a manner consistent with CLIA requirements. This test has not been cleared or approved by the U.S. Food and Drug Administration. Current interpretive data was last revised 2016. Blood specimen (specimen) 05/06/2017 8:19 AM CDT 05/06/2017 12:34 PM CDT us Kristen Mancera MD LAB BLOOD ORDERABLES Final Resul t [facility] Department [place] [address] * Comprehensive metabolic panel (05/06/2017 8:19 AM CDT) Sodium 145 135 - 145 mmol/L [facility] Potassium, pl 4.2 3.3 - 4.9 mmol/L [facility] CO2 27 22 - 32 mmol/L [facility] BUN 10 8 - 25 mg/dL [facility] Glucose 100 70 - 199 mg/dL [facility] Creatinine 0.71 0.60 - 1.10 mg/dL [facility] Calcium 9.2 8.5 - 10.3 mg/dL [facility] Chloride 107 97 - 110 mmol/L [facility] Albumin 4.6 3.5 - 5.0 g/dL [facility] AST 22 10 - 45 Units/L [facility] ALT 16 7 - 45 Units/L [facility] Alk phos 41 40 - 130 Units/L [facility] Bilirubin, total 0.2 0.1 - 1.2 mg/dL [facility] Protein, pl 7.3 6.5 - 8.5 g/dL [facility] Anion gap 11 2 - 15 mmol/L [facility] Blood specimen (specimen) 05/06/2017 8:19 AM CDT 05/06/2017 8:38 AM CDT us Kristen Mancera MD LAB BLOOD ORDERABLES Final Resul t Performing Organization Address [facility] Co de Phone Number [facility] [place] [address] * Lactate dehydrogenase (LD) (05/06/2017 8:19 AM CDT) Lactate dehydrogenase (LDH) 152 100 - 250 Units/L [facility] Blood specimen (specimen) 05/06/2017 8:19 AM CDT 05/06/2017 8:38 AM CDT us Kristen Mancera MD LAB BLOOD ORDERABLES Final Resul t Performing Organization Address City/[facility] Co de Phone Number [facility] Department [place] [address] * Morphology exam (05/06/2017 8:11 AM CDT) Morphological Screen, CAM Original results obtained required verification by peripheral smear. [facility] Blood specimen (specimen) 05/06/2017 8:11 AM CDT 05/06/2017 8:14 AM CDT us Kristen Mancera MD LAB BLOOD ORDERABLES Final Resul t [facility] Department [place] [address] * (ABNORMAL) CBC with auto differential (05/06/2017 8:11 AM CDT) Pathologist [facility] WBC 2.9(L) 3.8 - 9.8 K/cumm [facility] RBC 4.41 3.90 - 5.00 M/cumm [facility] Hgb 13.7 12.1 - 15.1 g/dL [facility] Hct 40.7 36.1 - 44.3 % [facility] Mean Cellular Volume - CAM 92.4 80.0 - 97.6 fL [facility] Mean Cellular Hemoglobin - CAM 31.1 26.7 - 33.7 pg [facility] Mean Cellular Hemoglobin Concentration - CAM 33.7 32.7 - 35.5 g/dL [facility] Rdw 12.4 11.8 - 14.6 % [facility] Plt 233 140 - 440 K/cumm [facility] Mean Platelet Volume - CAM 8.2 6.8 - 10.4 fL [facility] Neutrophil pct 24.3(L) 38.7 - 74.5 % [facility] Lymphocyte pct 54.1 20.0 - 54.3 % [facility] Monos 11.2 4.3 - 13.5 % [facility] Eosinophil pct 8.1(H) 0.0 - 6.0 % [facility] Basophil pct 2.3 0.0 - 3.0 % [facility] Neutrophil abs 0.7(L) 1.8 - 6.6 K/cumm [facility] Lymphocyte abs 1.6 1.2 - 3.3 K/cumm [facility] Monocyte abs 0.3 0.2 - 1.2 K/cumm [facility] Eosinophils, abs 0.2 0.0 - 0.5 K/cumm [facility] Basophil abs 0.1 0.0 - 0.2 K/cumm [facility] NRBC 0.0 0.0 - 0.2 % [facility] NRBC abs 0.00 0.00 - 0.01 K/cumm [facility] Blood specimen (specimen) 05/06/2017 8:11 AM CDT 05/06/2017 8:14 AM CDT us Kristen Mancera MD LAB BLOOD ORDERABLES Edited Resu lt - Final [facility] Department [place] [address] documented in this encounter Visit Diagnoses Not on filedocumented in this encounter Care Teams Circular Knife Machine Cutter Relationship Specialty Start Date End Date Jesus Alberto Smith MD PCP - General 02/11/17 05/02/17 Unknown, Notinfile PCP - General 05/03/17 05/05/17 Jesus Alberto Smith MD PCP - General 05/06/17 05/12/17 documented as of this encounter
--- OUTSIDE RECORDS SUMMARY | 2024-10-06 07:09 | XMS_ITS | Encounter Summary ---
Author Organization [facility] Address [address] [place] [address] Phone Care Team Providers Care Fingernail Sculptor Name Role Phone Jesus Alberto Smith MD Primary Care Provider [phone] Jesus Alberto Smith MD Primary Care Provider [phone] Unknown, Notinfile Primary Care Provider Unavail able Jesus Alberto Smith MD Primary Care Provider [phone] Unknown, Notinfile Primary Care Provider Unavail able Jesus Alberto Smith MD Primary Care Provider [phone] Unknown, Notinfile Primary Care Provider Unavail able Jesus Alberto Smith MD Primary Care Provider [phone] Kristen Mancera MD Unavailable Kacey Gonzalez MD Primary Care Provider [phone] Lewis Sunshnie MD Unavailable + [phone] Ana Pavon NP Primary Care Provider [phone] Encounter Details Date Type Department Care Team (Latest Contact Info) Description 02/01/2017 Orders Only [facility] Scanning, Provider Social History Tobacco Use Types Packs/Day Years Used Date Smoking Tobacco: Never Assessed Comments Unknown Sex and Gender Information Value Date Recorded Sex Assigned at Not on file Legal Sex Female 10:19 PM RECTIFYING OPERATOR Gender Identity Not on file Sexual Orientation Not on file documented as of this encounter Plan of Treatment Not on file documented as of this encounter Procedures Procedure Name Priority Date/Time Associated Diagnosis Comments SCAN - LABS 02/01/2017 documented in this encounter Results * SCAN - LABS (02/01/2017) us Provider Scanning Final Result documented in this encounter Visit Diagnoses Not on filedocumented in this encounter Additional Health Concerns Infection Onset Date Last Indicated Resolved Time COVID: Suspected 10/19/2023 10/19/2023 10/19/2023 11:26 AM RECTIFYING OPERATOR COVID: Suspected 10/19/2023 10/19/2023 10/19/2023 3:55 PM RECTIFYING OPERATOR RSV, droplet 10/19/2023 10/19/2023 10/26/2023 3:05 AM RECTIFYING OPERATOR documented as of this encounter Care Teams Fingernail Sculptor Relationship Specialty Start Date End Date Jesus Alberto Smith MD PCP - General 12/13/16 02/10/17 Jesus Alberto Smith MD PCP - General 02/11/17 05/02/17 Unknown, Notinfile PCP - General 05/03/17 05/05/17 Jesus Alberto Smith MD PCP - General 05/06/17 05/12/17 Unknown, Notinfile PCP - General 05/13/17 05/23/17 Jesus Alberto Smith MD PCP - General 05/24/17 08/04/17 Unknown, Notinfile PCP - General 08/05/17 11/03/17 Jesus Alberto Smith MD PCP - General 11/04/17 04/06/21 Kacey Gonzalez MD PCP - General Family Medicine 04/07/21 06/08/23 Ana Pavon NP [address] [facility] [address] [place] [address] PCP - General Family Medicine 06/09/23 Kristen Mancera MD Medical Oncologist/[employer] Interleafer Medical Oncology 11/21/20 Lewis Sunshine MD [address] [facility] [address] [place] [address] Surgeon Orthopedic Surgery 01/05/23 documented as of this encounter
--- OUTSIDE RECORDS SUMMARY | 2024-10-06 07:09 | XMS_ITS | Encounter Summary ---
Author Organization [facility] Address [address] [place] [address] Phone Care Team Providers Care Enlisted Aircrew/Aerial Observer/Gunner Name Role Phone Jesus Alberto Smith MD Primary Care Provider [phone] Encounter Details Date Type Department Care Team (Late st Contact Info) Description 04/07/2018 Orders Only [facility] Bone Marrow Transplant [address] [facility] Advanced Medicine 7th Floor, [place] [address] Kristen Mancera MD [address] DIV IM BONE MARROW TRANSPLANT, [address] [place], [place] [id number] Neutropenia, unspecified type (CMS/HCC) (Primary Dx) Social History Tobacco Use Types Packs/Day Years Used Date Smoking Tobacco: Never Comments Unknown Sex and Gender Information Value Date Recorded Sex Assigned at Not on file Legal Sex Female 10:19 PM 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 Gender Identity Not on file Sexual Orientation Not on file documented as of this encounter Plan of Treatment Not on file documented as of this encounter Results * Lactate dehydrogenase (LD) (05/05/2018 2:04 PM CDT) Lactate dehydrogenase (LDH) 161 100 - 250 Units/L [facility] Blood specimen (specimen) 05/05/2018 2:04 PM CDT 05/05/2018 3:13 PM CDT Narrative [facility] - 05/05/2018 3:42 PM CDT us Kristen Mancera MD LAB BLOOD ORDERABLES Final Resul t [facility] [place] [address] * (ABNORMAL) Comprehensive metabolic panel (05/05/2018 2:04 PM CDT) Sodium 142 135 - 145 mmol/L [facility] Potassium, pl 4.1 3.3 - 4.9 mmol/L [facility] Chloride 106 97 - 110 mmol/L [facility] CO2 29 22 - 32 mmol/L [facility] Anion gap 7 2 - 15 mmol/L [facility] BUN 9 8 - 25 mg/dL [facility] Creatinine 0.70 0.60 - 1.10 mg/dL [facility] Glucose 95 70 - 199 mg/dL [facility] Comment: Interpretive Data Fasting glucose >/= [...] interpretive data was last revised 2017. Calcium 9.0 8.5 - 10.3 mg/dL [facility] Bilirubin, total 0.4 0.1 - 1.2 mg/dL [facility] Protein, pl 7.0 6.5 - 8.5 g/dL [facility] Albumin 4.3 3.5 - 5.0 g/dL [facility] Alk phos 36(L) 40 - 130 Units/L [facility] ALT 14 7 - 45 Units/L [facility] AST 17 10 - 45 Units/L [facility] Blood specimen (specimen) 05/05/2018 2:04 PM CDT 05/05/2018 3:13 PM CDT Narrative [facility] - 05/05/2018 3:42 PM CDT us Kristen Mancera MD LAB BLOOD ORDERABLES Final Resul t [facility] Department [place] [address] * CBC with auto differential (05/05/2018 2:02 PM CDT) WBC 4.0 3.8 - 9.8 K/cumm [facility] Comment:Testing performed by : [place] [address] Hgb 13.5 12.1 - 15.1 g/dL [facility] Comment:Testing performed by : [place] [address] Hct 40.6 36.1 - 44.3 % [facility] Comment:Testing performed by : [address] Pl[address] 251 140 - 440 K/cumm [facility] Comment:Testing performed by : [address] MPV 8.4 6.8 - 10.4 fL [facility] Comment:Testing performed by : [place] [address] RBC 4.29 3.90 - 5.00 M/cumm [facility] Comment:Testing performed by : [address] MCV 94.6 80.0 - 97.6 fL [facility] Comment:Testing performed by : [address] MCH 31.4 26.7 - 33.7 pg [facility] Comment:Testing performed by : [address] MCHC 33.2 32.7 - 35.5 g/dL [facility] Comment:Testing performed by : [address] RDW CV 12.4 11.8 - 14.6 % [facility] Comment:Testing performed by : [facility], [address] [facility] [address] NRBC abs 0.00 0.00 - 0.01 K/cumm [facility] Comment:Testing performed by : [facility], [address] [facility] [address] Blood specimen (specimen) 05/05/2018 2:02 PM CDT 05/05/2018 2:05 PM CDT Narrative [facility] - 05/05/2018 2:10 PM CDT us Kristen Mancera MD LAB BLOOD ORDERABLES Final Resul t [facility] [place] [address] documented in this encounter Visit Diagnoses Diagnosis Neutropenia, unspecified type (HCC)- Primary Neutropenia, unspecified type (HCC) documented in this encounter Care Teams Enlisted Aircrew/Aerial Observer/Gunner Relationship Specialty Start Date End Date Jesus Alberto Smith MD PCP - General 11/04/17 04/06/21 documented as of this encounter
--- OUTSIDE RECORDS SUMMARY | 2024-10-06 07:09 | XMS_ITS | Encounter Summary ---
Author Organization [facility] Healthcare Address [address] [place] [address] Care Team Providers Care Music Therapist [employer] Name Role Phone Jesus Alberto Smith MD Primary Care Provider [phone] Encounter Details Date Type Department Care Team (Latest Contact Info) Description 12/22/2016 9:19 AM CDT - 12/22/2016 11:59 PM T Hospital Encounter [facility] INTER[facility] [phone] Jesus Alberto Smith MD [address] [address] Discharge Disposition: Discharge to home or self care Social History Tobacco Use Types Packs/Day Years Used Date Smoking Tobacco: Never Assessed Comments Unknown Sex and Gender Information Value Date Recorded Sex Assigned at Not on file Legal Sex Female 10:19 PM OPERATING ROOM SURGICAL TECHNICIAN Gender Identity Not on file Sexual Orientation [...] on filedocumented in this encounter Care Teams Music Therapist [employer] Relationship Specialty Start Date End Date Jesus Alberto Smith MD PCP - General 12/13/16 02/10/17 documented as of this encounter
--- OUTSIDE RECORDS SUMMARY | 2024-10-06 07:09 | XMS_ITS | Encounter Summary ---
Author Organization [facility] Healthcare Address [address] [place] [address] Care Team Providers Care Program Management Professional Name Role Phone Jesus Alberto Smith MD Primary Care Provider [phone] Encounter Details Date Type Department Care Team (Latest Contact Info) Description 11/17/2018 11:40 AM AMPHIBIAN CREWMEMBER - 11/17/2018 11:59 PM AMPHIBIAN CREWMEMBER Hospital Encounter [facility] Advanced Medicine Breast [facility] ([facility]) [address] [place] [id number] Rober Carodna MD [address] [facility] [address] [place] [address] Encounter for screening mammogram for malignant neoplasm of breast Discharge Disposition: Discharge to home or self care Social History Tobacco Use Types Packs/Day Years Used Date Smoking Tobacco: Never Smokeless Tobacco: Never Comments Unknown Sex and Gender Information Value Date Recorded Sex Assigned at Not on file Legal Sex Female 10:19 PM AMPHIBIAN CREWMEMBER Gender Identity Not on file Sexual Orientation [...] IMPLANTS Schedule Routine, Read Routine (OP Routine) 11/17/2018 12:01 PM AMPHIBIAN CREWMEMBER Encounter for screening mammogram for malignant neoplasm of breast documented in this encounter Results * Screening Mammogram Bilateral w Niko w Implants (11/17/2018 12:01 PM AMPHIBIAN CREWMEMBER) Anatomical Region Laterality Modality Breast Bilateral Mammography Narrative 11/22/2018 3:12 PM AMPHIBIAN CREWMEMBER Mammogram Technique: Bilateral Digital Breast Tomosynthesis, Bilateral C-view 2D Screening mammogram. ??Views obtained: ??bilateral craniocaudal; bilateral craniocaudal implant displaced; bilateral mediolateral oblique; and bilateral mediolateral oblique implant displaced. ??Computer Aided Detection was performed. Mammogram Findings: The present examination has been compared to prior imaging studies performed at [facility] on 01/05/2013, 02/15/2014 and 11/19/2016. The breasts are heterogeneously dense, which may obscure small masses. There are bilateral sub-pectoral saline implants. There is no suspicious abnormality in either breast. Impression: Annual screening mammography is recommended. OVERALL FINAL ASSESSMENT: BI-RADS CATEGORY 1: ??Negative. Procedure Note Brittani Robles MD - 11/22/2018 Mammogram Technique: Bilateral Digital Breast Tomosynthesis, Bilateral C-view 2D Screening mammogram. Views obtained: bilateral craniocaudal; bilateralcraniocaudal implant displaced; bilateral mediolateral oblique; and bilateral mediolateral oblique implant displaced. Computer Aided Detection was performed. Mammogram Findings: The present examination has been compared to prior imaging studies performed at [facility] on 01/05/2013, 02/15/2014 and 11/19/2016. The breasts are heterogeneously dense, which may obscure small masses. There are bilateral sub-pectoral saline implants. There is no suspicious abnormality in either breast. Impression: Annual screening mammography is recommended. OVERALL FINAL ASSESSMENT: BI-RADS CATEGORY 1: Negative. us Rober Cardona MD IMG MAMMO PROCEDURES Final Res ult documented in this encounter Visit Diagnoses Diagnosis Encounter for screening mammogram for malignant neoplasm of breast documented in this encounter Care Teams Program Management Professional Relationship Specialty Start Date End Date Jesus Alberto Smith MD PCP - General 11/04/17 04/06/21 documented as of this encounter
--- OUTSIDE RECORDS SUMMARY | 2024-10-06 07:09 | XMS_ITS | Encounter Summary ---
Author Organization [facility] Address [address] [place] [address] Phone Care Team Providers Care President & Ceo Name Role Phone Jesus Alberto Smith MD Primary Care Provider [phone] Reason for Visit * Oncology (Routine) - Closed Specialty Diagnoses / Procedures Referred By Contac t Referred To Contact Lab Diagnoses #C,,,, Procedures ARM DRAW Kristen Mancera MD Phone: tel: fax: [facility] Oncology [facility] Advanced Medicine 7th [place] [address] [place] [address] Phone: tel: Referral ID Status Reason Start Date Expiration Date Visits Re quested Visits Authorized [id number] Closed 05/05/2018 10/09/[phone] Encounter Details Date Type Department Care Team (Late st Contact Info) Description 05/05/2018 1:30 PM CDT Lab [facility] Oncology [address] [facility] Advanced Medicine 7th [place] [address] [place] [address] Kristen Mancera MD [address] IM BONE MARROW TRANSPLANT, [address] [place] [address] Neutropenia, unspecified type (CMS/HCC) Discharge Disposition: Discharge to home or self care Social History Tobacco Use Types Packs/Day Years Used Date Smoking Tobacco: Never Smokeless Tobacco: Never Comments Unknown Sex and Gender Information Value Date Recorded Sex Assigned at Not on file 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 Gender Identity Not on file Sexual Orientation Not on file documented as of this encounter Discharge Disposition Disposition Code Departure Means Destination Discharge to home or self care documented in this encounter Plan of Treatment Not on file documented as of this encounter Procedures Procedure Name Priority Date/Time Associated Diagnosis Comments LACTATE DEHYDROGENASE Routine 05/05/2018 2:04 PM CDT Neutropenia, unspecified type (CMS/HCC) COMPREHENSIVE METABOLIC PANEL Routine 05/05/2018 2:04 PM CDT Neutropenia, unspecified type (CMS/HCC) MORPHOLOGIC SCREEN Routine 05/05/2018 2: 02 PM CDT Neutropenia, unspecified type (CMS/HCC) DIFFERENTIAL AUTO Routine 05/05/2018 2:0 2 PM CDT Neutropenia, unspecified type (CMS/HCC) CBC WITH AUTO DIFFERENTIAL Routine 05/05/2018 2:02 PM CDT Neutropenia, unspecified type (CMS/HCC) documented in this encounter Results * Lactate dehydrogenase (LD) (05/05/2018 2:04 PM CDT) Lactate dehydrogenase (LDH) 161 100 - 250 Units/L [facility] Blood specimen (specimen) 05/05/2018 2:04 PM CDT 05/05/2018 3:13 PM CDT Narrative [facility] - 05/05/2018 3:42 PM CDT us Kristen Mancera MD LAB BLOOD ORDERABLES Final Resul t [facility] One [facility] Department of Laboratories [place], [place] [id number] * (ABNORMAL) Comprehensive metabolic panel (05/05/2018 2:04 PM CDT) Sodium 142 135 - 145 mmol/L [facility] Potassium, pl 4.1 3.3 - 4.9 mmol/L [facility] Chloride 106 97 - 110 mmol/L [facility] CO2 29 22 - 32 mmol/L [facility] Anion gap 7 2 - 15 mmol/L [facility] BUN 9 8 - 25 mg/dL [facility] Creatinine 0.70 0.60 - 1.10 mg/dL [facility] Glucose 95 70 - 199 mg/dL [facility] Comment: Interpretive Data Fasting glucose >/= 126 [...] 2017. Calcium 9.0 8.5 - 10.3 mg/dL [facility] Bilirubin, total 0.4 0.1 - 1.2 mg/dL [facility] Protein, pl 7.0 6.5 - 8.5 g/dL [facility] Albumin 4.3 3.5 - 5.0 g/dL [facility] Alk phos 36(L) 40 - 130 Units/L [facility] ALT 14 7 - 45 Units/L [facility] AST 17 10 - 45 Units/L [facility] Blood specimen (specimen) 05/05/2018 2:04 PM CDT 05/05/2018 3:13 PM CDT Narrative [facility] - 05/05/2018 3:42 PM CDT us Kristen Mancera MD LAB BLOOD ORDERABLES Final Resul t [facility] One [facility] [place] [address] * Morphologic screen (05/05/2018 2:02 PM CDT) Morphologic Screen Original results obtained required verification by peripheral smear. [facility] Blood specimen (specimen) 05/05/2018 2:02 PM CDT 05/05/2018 2:05 PM CDT Narrative [facility] - 05/05/2018 2:37 PM CDT us Kristen Mancera MD LAB BLOOD ORDERABLES Final Resul t [facility] One [facility] [place] [address] * (ABNORMAL) Differential, auto (05/05/2018 2:02 PM CDT) Neutrophil abs 1.5(L) 1.8 - 6.6 K/cumm [facility] Comment:Testing performed by : [facility], [address] [place] [phone] Lymphocyte abs 1.7 1.2 - 3.3 K/cumm [facility] Comment:Testing performed by : [facility], [address] [place] [phone] Monocyte abs 0.5 0.2 - 1.2 K/cumm [facility] Comment:Testing performed by : [facility], [address] [place] [phone] Eosinophil abs 0.2 0.0 - 0.5 K/cumm [facility] Comment:Testing performed by : [facility], [address] [place] [phone] Basophil abs 0.1 0.0 - 0.2 K/cumm [facility] Comment:Testing performed by : [facility], [address] [place] [phone] Neutrophil pct 38.0 % [facility] Comment: Interpretive Data Percent cell count reference ranges are not reported, since discordance with absolute values may lead to misinterpretation of CBC data. Current Interpretive Data was last revised on 2018. Testing performed by: [facility], [address] [place] [phone] Lymphocyte pct 42.5 % [facility] Comment: Interpretive Data Percent cell count reference ranges are not reported, since discordance with absolute values may lead to misinterpretation of CBC data. Current Interpretive Data was last revised on 2018. Testing performed by: [facility], [address] [place] [phone] Monocyte pct 12.8 % [facility] Comment:Testing performed by : [facility], [address] [place] [phone] Eosinophil pct 4.5 % [facility] Comment:Testing performed by : [facility], [address] [place] [phone] Basophil pct 2.2 % [facility] Comment:Testing performed by : [facility], [address] [place] [phone] Blood specimen (specimen) 05/05/2018 2:02 PM CDT 05/05/2018 2:05 PM CDT Narrative [facility] - 05/05/2018 2:37 PM CDT us Kristen Mancera MD LAB BLOOD ORDERABLES Final Resul t [facility] One [facility] [place] [address] * CBC with auto differential (05/05/2018 2:02 PM CDT) WBC 4.0 3.8 - 9.8 K/cumm [facility] Comment:Testing performed by : [address] [phone] Hgb 13.5 12.1 - 15.1 g/dL [facility] Comment:Testing performed by : [facility], [address] [place] [phone] Hct 40.6 36.1 - 44.3 % [facility] Comment:Testing performed by : [address] [phone] Plt 251 140 - 440 K/cumm [facility] Comment:Testing performed by : [address] [phone] MPV 8.4 6.8 - 10.4 fL [facility] Comment:Testing performed by : [facility], [address] [place] [address] RBC 4.29 3.90 - 5.00 M/cumm [facility] Comment:Testing performed by : [facility], [address] [place] [address] MCV 94.6 80.0 - 97.6 fL [facility] Comment:Testing performed by : [facility], [address] [place] [address] MCH 31.4 26.7 - 33.7 pg [facility] Comment:Testing performed by : [facility], [address] [place] [address] MCHC 33.2 32.7 - 35.5 g/dL [facility] Comment:Testing performed by : [facility], [address] [place] [address] RDW CV 12.4 11.8 - 14.6 % [facility] Comment:Testing performed by : [facility], [address] [place] [address] NRBC abs 0.00 0.00 - 0.01 K/cumm [facility] Comment:Testing performed by : [facility], [address] [place] [address] Blood specimen (specimen) 05/05/2018 2:02 PM CDT 05/05/2018 2:05 PM CDT Narrative [facility] - 05/05/2018 2:10 PM CDT us Kristen Mancera MD LAB BLOOD ORDERABLES Final Resul t [facility] One [facility] Department [place] [address] documented in this encounter Visit Diagnoses Diagnosis Neutropenia, unspecified type (HCC) documented in this encounter Care Teams President & Ceo Relationship Specialty Start Date End Date Jesus Alberto Smith MD PCP - General 11/04/17 04/06/21 documented as of this encounter
--- OUTSIDE RECORDS SUMMARY | 2024-10-06 07:09 | XMS_ITS | Encounter Summary ---
Author Organization [facility] Address [address] [place] [address] Phone Care Team Providers Care Feather Mixer Name Role Phone Jesus Alberto Smith MD Primary Care Provider [phone] Encounter Details Date Type Department Care Team (Late st Contact Info) Description 05/05/2018 2:00 PM CDT Office Visit [facility] Bone Marrow Transplant [address] [facility] Advanced Medicine 7th [place], [place] [address] Kristen Mancera MD [address] IM BONE MARROW TRANSPLANT, [address] [place], [place] [id number] Neutropenia, unspecified type (CMS/HCC) (Primary Dx) Social History Tobacco Use Types Packs/Day Years Used Date Smoking Tobacco: Never Smokeless Tobacco: Never Comments Unknown Sex and Gender Information Value Date Recorded Sex Assigned at Not on file 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 Gender Identity Not on file Sexual Orientation Not on file documented as of this encounter Last Filed Vital Signs Vital Sign Reading Time Taken Comments Blood Pressure 118/80 05/05/2018 2:14 PM CDT Pulse 63 05/05/2018 2:14 PM CDT Temperature 36.7 ??C (98.1 ??F) 05/05/2018 2:14 PM CD T Respiratory Rate 16 05/05/2018 2:14 PM CDT Oxygen Saturation 97% 05/05/2018 2:14 PM CDT Inhaled Oxygen Concentration - - Weight 53.3 kg (117 lb 9.6 oz) 05/05/2018 2:14 P M CDT Height - - Body Mass Index 21.37 11/04/2017 2:08 PM PRICE CHECKER documented in this encounter Progress Notes * Kristen Mancera MD - 05/05/2018 2:00 PM CDT BMT Progress Note DIAGNOSIS: Neutropenia. TREATMENT: None. INTERVAL HISTORY: Ms. Medeiros is a 47-year-old woman with longstanding history of neutropenia for the last 10 or so years. She has completely normal hemoglobin and platelets. She carries homozygote mutation MTHFR. Shenever had thrombophlebitis or thromboembolic events. 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 She never had a bone marrow biopsy in the past. Antineutrophil antibody in the past was very weakly reactive antibodies. Overall, she feels well and has no issues. Currently she feels well. There is no nausea, vomiting, or diarrhea. There is no fever or chills. SOCIAL HISTORY: She lives at home with her and is independent of activities of daily living. Allergies Allergen Reactions ??? Tolmetin Unknown Outpatient Encounter Prescriptions as of 05/05/2018: ??? levonorgestrel (MIRENA) IUD, 1 Device by [...] otherwise all systems are negative Performance Status: 0 Objective Vitals: BP: 118/80 Temp: 36.7 ??C (98.1 ??F) Temp src: Oral Pulse: 63 Resp: 16 SpO2: 97 % Weight: 53.3 kg (117 lb 9.6 oz) Physical exam: GEN: alert, awake, oriented x 3, not in acute distress HEENT: no mucositis, anicteric sclera Neck: supple Pulm: clear to ausculation bilaterally, good breath sounds CV: rate and rhythm regular, no murmurs ABD: soft, nondistended, nontender, bowel sounds active, no organomegaly Skin: no rashes or lesions Ext: No edema, good pulses Neuro: no focal deficites Lab/Radiology/Diagnostic Review: CBC: Lab Results Component Value Date/Time WBC 4.0 05/05/2018 02:02 PM LABPLAT 251 05/05/2018 02:02 PM HGB 13.5 05/05/2018 02:02 PM HCT 40.6 05/05/2018 02:02 PM MCV 94.6 05/05/2018 02:02 PM MCH 31.4 05/05/2018 02:02 PM MCHC 33.2 05/05/2018 02:02 PM RDW 13.1 11/04/2017 02:02 PM RDWCV 12.4 05/05/2018 02:02 PM MPV 8.4 05/05/2018 02:02 PM NRBC 0.0 11/04/2017 02:02 PM NEUTROABS 1.7 (L) 11/04/2017 02:02 PM Assessment/Plan Karen Medeiros is 47-year-old woman with a chronic neutropenia. She is overall doing extremely well. She does not require any transfusions or growth factors. We sent [employer] test in the past, and it was absolutely negative for any mutations. She has a history of getting sick when quickly if she is developing some respiratory infection or urinary tract infection. Considering her history of longstanding benign neutropenia we should have a low threshold of prescribing antibiotics if she is febrile. She will have her counts rechecked in 6 months and I will see her in 1 year. documented in this encounter Plan of Treatment Not on file documented as of this encounter Results * (ABNORMAL) CBC with auto differential (05/04/2019 1:57 PM CDT) WBC 3.5(L) 3.8 - 9.8 K/cumm [facility] Comment:Testing performed by : [facility], [address] [place] [phone] Hgb 13.6 12.1 - 15.1 g/dL [facility] Comment:Testing performed by : [facility], [address] [place], [place] [phone] Hct 39.8 36.1 - 44.3 % [facility] Comment:Testing performed by : [facility], [address] [place] [address] Plt 233 140 - 440 K/cumm [facility] Comment:Testing performed by : [facility], [address] [place] [address] MPV 8.5 6.8 - 10.4 fL [facility] Comment:Testing performed by : [place] [address] RBC 4.28 3.90 - 5.00 M/cumm [facility] Comment:Testing performed by : [place] [address] MCV 93.0 80.0 - 97.6 fL [facility] Comment:Testing performed by : [facility], [address] [place], [place] [phone] MCH 31.7 26.7 - 33.7 pg [facility] Comment:Testing performed by : [place] [address] MCHC 34.1 32.7 - 35.5 g/dL [facility] Comment:Testing performed by : [place] [address] RDW CV 12.5 11.8 - 14.6 % [facility] Comment:Testing performed by : [place] [address] NRBC abs 0.00 0.00 - 0.01 K/cumm [facility] Comment:Testing performed by : [place] [address] Blood specimen (specimen) 05/04/2019 1:57 PM CDT 05/04/2019 1:59 PM CDT us Kristen Mancera MD LAB BLOOD ORDERABLES Final Resul t [facility] Department [place] [address] * Lactate dehydrogenase (LD) (05/04/2019 1:56 PM CDT) Lactate dehydrogenase (LDH) 236 100 - 250 Units/L [facility] Blood specimen (specimen) 05/04/2019 1:56 PM CDT 05/04/2019 2:51 PM CDT us Kristen Mancera MD LAB BLOOD ORDERABLES Final Resul t [facility] Department [place] [address] * (ABNORMAL) Comprehensive metabolic panel (05/04/2019 1:56 PM CDT) Pathologist [facility] Sodium 139 135 - 145 mmol/L [facility] Potassium, pl 4.6 3.3 - 4.9 mmol/L [facility] Chloride 103 97 - 110 mmol/L [facility] CO2 28 22 - 32 mmol/L [facility] Anion gap 8 2 - 15 mmol/L [facility] BUN 13 8 - 25 mg/dL [facility] Creatinine 0.78 0.60 - 1.10 mg/dL [facility] Glucose 71 70 - 199 mg/dL [facility] Comment: Interpretive Data Fasting glucose >/= 126 [...] 2017. Calcium 9.6 8.5 - 10.3 mg/dL [facility] Bilirubin, total 0.6 0.1 - 1.2 mg/dL [facility] Protein, pl 7.3 6.5 - 8.5 g/dL [facility] Albumin 4.6 3.5 - 5.0 g/dL [facility] Alk phos 38(L) 40 - 130 Units/L [facility] ALT 13 7 - 45 Units/L [facility] AST 21 10 - 45 Units/L [facility] Blood specimen (specimen) 05/04/2019 1:56 PM CDT 05/04/2019 2:51 PM CDT Kristen Mancera MD LAB BLOOD ORDERABLES Final Resul t Performing Organization Address [facility] de Phone Number [facility] [place] [address] * Lactate dehydrogenase (LD) (01/17/2019 9:52 AM CDT) Pathologist [facility] Lactate dehydrogenase (LDH) 168 100 - 250 Units/L [facility] Blood specimen (specimen) 01/17/2019 9:52 AM CDT 01/17/2019 10:06 AM CDT Narrative [facility] - 01/17/2019 10:35 AM CDT Kristen Mancera MD LAB BLOOD ORDERABLES Final Resul t Performing Organization Address [facility] de Phone Number [facility] [place] [address] * Comprehensive metabolic panel (01/17/2019 9:52 AM CDT) Sodium 140 135 - 145 mmol/L [facility] Potassium, pl 4.4 3.3 - 4.9 mmol/L [facility] Chloride 104 97 - 110 mmol/L [facility] CO2 27 22 - 32 mmol/L [facility] Anion gap 9 2 - 15 mmol/L [facility] BUN 11 8 - 25 mg/dL [facility] Creatinine 0.70 0.60 - 1.10 mg/dL [facility] Glucose 92 70 - 199 mg/dL [facility] Comment: Interpretive Data Fasting glucose >/= 126 [...] 2017. Calcium 9.3 8.5 - 10.3 mg/dL [facility] Bilirubin, total 0.6 0.1 - 1.2 mg/dL [facility] Protein, pl 7.5 6.5 - 8.5 g/dL [facility] Albumin 4.6 3.5 - 5.0 g/dL [facility] Alk phos 41 40 - 130 Units/L [facility] ALT 14 7 - 45 Units/L [facility] AST 16 10 - 45 Units/L [facility] Blood specimen (specimen) 01/17/2019 9:52 AM CDT 01/17/2019 10:06 AM CDT Narrative [facility] - 01/17/2019 10:35 AM CDT us Kristen Mancera MD LAB BLOOD ORDERABLES [facility]ul t [facility] One [facility] Department of Laboratories [place], [place] [id number] * CBC with auto differential (01/17/2019 9:51 AM CDT) WBC 4.0 3.8 - 9.8 K/cumm [facility] Comment:Testing performed by : [facility], [address] [place] [phone] Hgb 14.1 12.1 - 15.1 g/dL [facility] Comment:Testing performed by : [facility], [facility] [phone] Hct 42.6 36.1 - 44.3 % [facility] Comment:Testing performed by : [facility], [address] [place], [place] [phone] Plt 355 140 - 440 K/cumm [facility] Comment:Testing performed by : [facility], [address] [place], [place] [phone] MPV 7.6 6.8 - 10.4 fL [facility] Comment:Testing performed by : [place] [address] RBC 4.60 3.90 - 5.00 M/cumm [facility] Comment:Testing performed by : [facility], [address] [place], [place] [phone] MCV 92.5 80.0 - 97.6 fL [facility] Comment:Testing performed by : [facility], [address] [place], [place] [id number] MCH 30.5 26.7 - 33.7 pg [facility] Comment:Testing performed by : [facility], [address] [place], [place] [id number] MCHC 33.0 32.7 - 35.5 g/dL [facility] Comment:Testing performed by : [place] [phone] RDW CV 12.1 11.8 - 14.6 % [facility] Comment:Testing performed by : [place] [phone] NRBC abs 0.00 0.00 - 0.01 K/cumm [facility] Comment:Testing performed by : [facility], [address] [place], [place] [phone] Blood specimen (specimen) 01/17/2019 9:51 AM CDT 01/17/2019 9:56 AM CDT Narrative [facility] - 01/17/2019 10:04 AM CDT us Kristen Mancera MD LAB BLOOD ORDERABLES Final Resul t [facility] Department [place] [address] documented in this encounter Visit Diagnoses Diagnosis Neutropenia, unspecified type (HCC)- Primary Neutropenia, unspecified type (HCC) documented in this encounter Historical Medications * This list may reflect changes made after this encounter. levonorgestrel (MIRENA) IUDIndications:Abn ormal Uterine Bleeding, Contraception 1 each by intrauterine route once 02/22/2014 triamcinolone (KENALOG) 0.1 % creamIndications:N eutropenia, unspecified type (HCC) apply to affected areas of trunk twice daily as needed for redness/itching 02/11/2017 04/20/20 22 tretinoin (RETIN-A) 0.025 % creamIndications:N eutropenia, unspecified type (HCC) Apply no more than a pea-sized amount to clean, dry face once daily before bedtime. 02/11/2017 04/07/20 21 zolpidem (AMBIEN) 10 mg tabletIndications: Sleep-Onset Insomnia TAKE 1 TABLET AT BEDTIME. 05/08/20 21 added in this encounter Orders Appointment Requests Count Last Ordered Date Fi rst Ordered Date ONCBCN CLINIC APPOINTMENT REQUEST 1 019 ONCBCN LAB APPOINTMENT 1 05/04/2019 documented in this encounter Care Teams Feather Mixer Relationship Specialty Start Date End Date Jesus Alberto Smith MD PCP - General 11/04/17 04/06/21 documented as of this encounter
--- OUTSIDE RECORDS SUMMARY | 2024-10-06 07:09 | XMS_ITS | Encounter Summary ---
Author Organization [facility] Healthcare Address [address] [place] [address] Care Team Providers Care Shoe Dyer Name Role Phone Jesus Alberto Smith MD Primary Care Provider [phone] Encounter Details Date Type Department Care Team (Latest Contact Info) Description 01/28/2017 11:42 AM CDT - 02/01/2017 11:59 PM CDT Hospital Encounter [facility] OP INTERIM [phone] Faustina Bolanos MD PhD [address] [employer], [address] [place] [address] Discharge Disposition: Discharge to home or self care Social History Tobacco Use Types Packs/Day Years Used Date Smoking Tobacco: Never Assessed Comments Unknown Sex and Gender Information Value Date Recorded Sex Assigned at Not on file 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 Gender Identity Not on file Sexual Orientation [...] Procedure Name Priority Date/Time Associated Diagnosis Comments COPPER, SERUM Routine Gen Lab 02/01/2017 10:37 AM CDT PNH PROFILE Routine Gen Lab 02/01/2017 10:37 AM CDT HOMOCYSTEINE Routine Gen Lab 02/01/2017 10:37 AM CDT C4 COMPLEMENT Routine Gen Lab 02/01/2017 10:16 AM CDT B FYB ANTIGEN TYPE Routine Gen Lab 02/01/2017 10 :16 AM CDT B FYA ANTIGEN TYPE Routine Gen Lab 02/01/2017 10 :16 AM CDT HERNAN REFLEX TO QUANTITATIVE Routine Gen Lab 02/01/2017 10:16 AM CDT ANTITHROMBIN Routine Gen Lab 02/01/2017 10:16 AM CDT COMPLEMENT, TOTAL Routine Gen Lab 02/01/2017 10: 16 AM CDT C3 COMPLEMENT Routine Gen Lab 02/01/2017 10:16 AM CDT FOLATE Routine Gen Lab 02/01/2017 10:16 AM CDT VITAMIN B12 Routine Gen Lab 02/01/2017 10:16 AM CDT TYPE AND SCREEN Routine Gen Lab 02/01/2017 8:35 AM CDT CMV, IGG Routine Gen Lab 02/01/2017 8:35 AM CDT LACTATE DEHYDROGENASE Routine Gen Lab 02/01/2017 8:35 AM CDT COMPREHENSIVE METABOLIC PANEL Routine Gen Lab 02/01/2017 8:35 AM CDT SURGICAL PATHOLOGY Routine 02/01/2017 8: 35 AM CDT MORPHOLOGY EXAM Routine Gen Lab 02/01/2017 8:32 AM CDT MORPHOLOGY EXAM Routine Gen Lab 02/01/2017 8:32 AM CDT CBC WITH AUTO DIFFERENTIAL Routine Gen Lab 02/01/2017 8:32 AM CDT documented in this encounter Results * Copper, serum (02/01/2017 10:37 AM CDT) [facility] Copper 1.00 0.75 - 1.45 mcg/mL [facility] Comment: ADDITIONAL INFORMATION This test was developed and its performance characteristics determined by [facility] in a manner consistent with CLIA requirements. This test has not been cleared or approved by the U.S. Food and Drug Administration. Test Performed by: [place] [id number] Blood specimen (specimen) 02/01/2017 10:37 AM CDT 02/01/2017 11:01 AM CDT Faustina Bolanos MD PhD LAB BLOOD ORDERABLES F inal Result Performing Organization Address City/[facility]/ZIP Co de Phone Number [facility] [place] [address] * PNH profile (02/01/2017 10:37 AM CDT) [facility] RBC-CD59 Test Completed [facility] PN WBC-CD59 Test Completed [facility] FLAER Test Completed [facility] Interpretation See separate Surgical Pathology report. [facility] Blood specimen (specimen) 02/01/2017 10:37 AM CDT 02/01/2017 12:40 PM CDT Faustina Bolanos MD PhD LAB BLOOD ORDERABLES F inal Result Performing Organization Address City/[facility]/ZIP Co de Phone Number [facility] [place] [address] * Homocysteine (02/01/2017 10:37 AM CDT) [facility] Homocysteine 8.4 0.0 - 15.0 mcmol/L [facility] Blood specimen (specimen) 02/01/2017 10:37 AM CDT 02/01/2017 1:53 PM CDT Faustina Bolanos MD PhD LAB BLOOD ORDERABLES E dited Result - Final Performing Organization Address [facility]/ZIP Co de Phone Number [facility] [place] [address] * B FyB Antigen Type (02/01/2017 10:16 AM CDT) [facility] RBC phenotyping, Fyb ag Positive [facility] Blood specimen (specimen) 02/01/2017 10:16 AM CDT 02/01/2017 7:41 PM CDT Faustina Bolanos MD PhD LAB BLOOD ORDERABLES F inal Result Performing Organization Address [facility] Co de Phone Number [facility] [place] [address] * B FyA Antigen Type (02/01/2017 10:16 AM CDT) [facility] RBC phenotyping, Fya ag Negative [facility] Blood specimen (specimen) 02/01/2017 10:16 AM CDT 02/01/2017 7:41 PM CDT Faustina Bolanos MD PhD LAB BLOOD ORDERABLES F inal Result Performing Organization Address [facility] de Phone Number [facility] [place] [address] * (ABNORMAL) Complement, total (02/01/2017 10:16 AM CDT) [facility] Complement hemolytic 164(H) 63 - 145 [facility] Blood specimen (specimen) 02/01/2017 10:16 AM CDT 02/01/2017 12:14 PM CDT Faustina Bolanos MD PhD LAB BLOOD ORDERABLES F inal Result Performing Organization Address [facility] Co de Phone Number [facility] [place] [address] * HERNAN reflex to quantitative (02/01/2017 10:16 AM CDT) Pathologist [facility] HERNAN Negative Negative [facility] Comment: Interpretive Data Normal range for Hernan Qualitative Antibody = Negative. 1. ??HERNAN titers are performed on all positive qualitative results. 2. ??A significantly positive HERNAN result is defined as a positive nuclear fluorescence at a titer of 1:80 or greater. 3. ??15% of normal people above age 65 have significantly positive HERNAN results. ??5% or less of normal people age 65 or under have significantly positive HERNAN results. Current interpretive data was last revised on 04. Blood specimen (specimen) 02/01/2017 10:16 AM CDT 02/01/2017 10:57 AM CDT Faustina Bolanos MD PhD LAB BLOOD ORDERABLES F inal Result Performing Organization Address [facility] [place] [address] * C4 complement (02/01/2017 10:16 AM CDT) Pathologist [facility] Complement C4 19.8 10.0 - 40.0 mg/dL [facility] Blood specimen (specimen) 02/01/2017 10:16 AM CDT 02/01/2017 12:13 PM CDT Result [facility] Faustina Bolanos MD PhD LAB BLOOD ORDERABLES F inal Result Performing Organization Address [facility] [place] [address] * C3 complement (02/01/2017 10:16 AM CDT) [facility] Complement C3 98.0 90.0 - 180.0 mg/dL [facility] Blood specimen (specimen) 02/01/2017 10:16 AM CDT 02/01/2017 12:13 PM CDT Faustina Bolanos MD PhD LAB BLOOD ORDERABLES F inal Result Performing Organization Address City/[facility] Co de Phone Number [facility] [place] [address] * Antithrombin (02/01/2017 10:16 AM CDT) [facility] Rheumatoid factor, quant <10.0 0.1 - 15.0 IUnits/mL [facility] Blood specimen (specimen) 02/01/2017 10:16 AM CDT 02/01/2017 10:58 AM CDT Faustina Bolanos MD PhD LAB BLOOD ORDERABLES F inal Result Performing Organization Address [facility] de Phone Number [facility] [place] [address] * Folate (02/01/2017 10:16 AM CDT) [facility] Folic acid 17.2 4.8 - 24.2 mcg/L [facility] Blood specimen (specimen) 02/01/2017 10:16 AM CDT 02/01/2017 10:58 AM CDT Faustina Bolanos MD PhD LAB BLOOD ORDERABLES F inal Result Performing Organization Address [facility] Co de Phone Number [facility] [place] [address] * Vitamin B12 (02/01/2017 10:16 AM CDT) [facility] Vitamin B12 330 210 - 900 pg/mL [facility] Blood specimen (specimen) 02/01/2017 10:16 AM CDT 02/01/2017 10:58 AM CDT Faustina Bolanos MD PhD LAB BLOOD ORDERABLES F inal Result [facility] [place] [address] * Type and screen (02/01/2017 8:35 AM CDT) Denise, indirect Negative [facility] ABO Rh B Positive [facility] Blood specimen (specimen) 02/01/2017 8:35 AM CDT 02/01/2017 9:01 AM CDT Faustina Bolanos MD PhD LAB BLOOD BANK TEST OR DERABLES Edited Result - Final [facility] [place] [address] * Surgical pathology (02/01/2017 8:35 AM CDT) 02/01/2017 8:35 AM CDT 02/01/2017 12:40 PM CDT [facility] - 02/02/2017 11:45 PM CDT [facility] Dawna Carr [facility] [place] [address] SURGICAL PATHOLOGY REPORT FINAL Patient Name: KEERTHI DIXON ? Address: [address] ??Service: ??Hematology/Oncology ??[place], [place] ??[id number] ??Location: ??[facility] Taken: 02/01/2017 Gender: F ?? Received: 02/01/2017 : 1970 (Age: 46) ??Hospital #: ??[id number] Accessioned: 02/01/2017 ?Patient Type: ??[facility] Ref Lab [place] Reported: 02/02/2017 ? Physician(s): Faustina Bolanos M.D. ? Diagnosis: Peripheral blood, venipuncture, for morphologic review and flow cytometry - ?No immunophenotypic evidence of paroxysmal nocturnal hemoglobinuria (see comment ama/02/02/2017 13:00 By this signature, I attest that the above diagnosis is based upon my personal examination of the slides(and/or other material indicated in the diagnosis). ?? Paulette Azar M.D. ??Report Electronically Reviewed and Signed Out By ??Barber Azar M.D. 02/02/2017 23:45:48 Microscopic Description and Comment: CBC (collected on 02/01/2017): WBC 3.6, RBC 4.59, hemoglobin 14, hematocrit 42.3, MCV 92.1, RDW 12.4, platelets 261. Review of the peripheral blood smear shows normocytic red blood cells with no significant anisopoikilocytosis. White bloods are slightly decreased in number and demonstrate normal morphology. Platelets are normal in number and morphology. Overt dyspoiesis and circulating blasts are not identified. Flow cytometric analysis performed on the peripheral blood shows retained expression of CD59 in red blood cells and granulocytes. Granulocytes demonstrate retained FLAER binding. ?Ladonna Gomes M.D. ?History: The patient is a 46 year old woman. Evaluate for paroxysmal nocturnal hemoglobinuria. Specimen(s) Received: A: Peripheral blood for flow, [facility] Description: { Not Entered } ?Ladonna Gomes M.D. ? By this signature, I attest that the above diagnosis is based upon my personal examination of the slides(and/or other material). ?? Surgical Pathology report is available electronically in Clinical Desktop. The performance characteristics of some immunohistochemical stains, fluorescence in-situ hybridization tests and immunophenotyping by flow cytometry cited in this report (if any) were determined by the Surgical Pathology Department at [facility] as part of an ongoing quality director program and in compliance with federally mandated regulations drawn from the Clinical Laboratory Improvement Act of 1988 (CLIA '88). ??Some of these tests rely on the use of analyte specific reagents and are subject to specific labeling requirements by the US Food and Drug Administration. ??Such diagnostic tests may only be performed in a facility that is certified by the Department of Health and Human Services as a high complexity laboratory under CLIA '88. ??The FDA has determined that such clearance or approval is not necessary. ??This test is used for clinical purposes. ??It should not be regarded as investigational or for research. ??Nevertheless, federal rules concerning the medical use of analyte specific reagents require that the following disclaimer be attached to the report: This test was developed and its performance characteristics determined by the Surgical Pathology Department of [facility]. ??It has not been cleared or approved by the U. S. Food and Drug Administration. Faustina Bolanos MD PhD LAB PATHOLOGY ORDERABL ES Final Result [address] * (ABNORMAL) CMV, IgG (02/01/2017 8:35 AM CDT) CMV IgG Positive( A) Negative [facility] Comment: Interpretive Data Negative - No detectable CMV IgG antibody. Equivocal- Uncertain Immune Status. ??Additional sample should be sent. Positive - Indicates presence of detectable CMV IgG antibody. Current interpretive data was last revised on 2016. Blood specimen (specimen) 02/01/2017 8:35 AM CDT 02/01/2017 9:06 AM CDT us Faustina Bolanos MD PhD LAB MICROBIOLOGY - GEN ERAL ORDERABLES Final Result [facility] [place] [address] * (ABNORMAL) Comprehensive metabolic panel (02/01/2017 8:35 AM CDT) Sodium 141 135 - 145 mmol/L [facility] Potassium, pl 4.1 3.3 - 4.9 mmol/L [facility] CO2 27 22 - 32 mmol/L [facility] BUN 11 8 - 25 mg/dL [facility] Glucose 89 70 - 199 mg/dL [facility] Creatinine 0.63 0.60 - 1.10 mg/dL [facility] Calcium 9.8 8.5 - 10.3 mg/dL [facility] Chloride 104 97 - 110 mmol/L [facility] Comment:fixed result mapping Albumin 4.7 3.5 - 5.0 g/dL [facility] AST 20 10 - 45 Units/L [facility] ALT 14 7 - 45 Units/L [facility] Alk phos 39(L) 40 - 130 Units/L [facility] Bilirubin, total 0.7 0.1 - 1.2 mg/dL [facility] Protein, pl 7.5 6.5 - 8.5 g/dL [facility] Anion gap 10 2 - 15 mmol/L [facility] Blood specimen (specimen) 02/01/2017 8:35 AM CDT 02/01/2017 8:52 AM CDT us Faustina Bolanos MD PhD LAB BLOOD ORDERABLES F inal Result [facility] [place] [address] * Lactate dehydrogenase (LD) (02/01/2017 8:35 AM CDT) Lactate dehydrogenase (LDH) 137 100 - 250 Units/L [facility] Blood specimen (specimen) 02/01/2017 8:35 AM CDT 02/01/2017 8:52 AM CDT Faustina Bolanos MD PhD LAB BLOOD ORDERABLES F inal Result Performing Organization Address City/[facility]/ZIP Co de Phone Number [facility] [place] [address] * (ABNORMAL) Morphology exam (02/01/2017 8:32 AM CDT) Neutrophils 36(L) 44 - 80 % [facility] Lymphocytes 47(H) 8 - 44 % [facility] Monos 14(H) 2 - 8 % [facility] Eosinophils 1 0 - 6 % [facility] Basophil pct 2 0 - 3 % [facility] Cells Diffed - CAM 100 [facility] Platelet estimate Adequate Adequate [facility] Platelet morphology Few Enlarged(A) [facility] Anisocytosis - CAM Slight None Seen [facility] Blood specimen (specimen) 02/01/2017 8:32 AM CDT 02/01/2017 8:35 AM CDT Faustina Bolanos MD PhD LAB BLOOD ORDERABLES E dited Result - Final Performing Organization Address [facility] Co de Phone Number [facility] [place] [address] * Morphology exam (02/01/2017 8:32 AM CDT) Pathologist [facility] Morphological Screen, CAM Original results obtained required verification by peripheral smear. [facility] Blood specimen (specimen) 02/01/2017 8:32 AM CDT 02/01/2017 8:35 AM CDT Result [facility] Faustina Bolanos MD PhD LAB BLOOD ORDERABLES F inal Result Performing Organization Address [facility] Co de Phone Number [facility] [place] [address] * (ABNORMAL) CBC with auto differential (02/01/2017 8:32 AM CDT) [facility] Signature WBC 3.6(L) 3.8 - 9.8 K/cumm [facility] RBC 4.59 3.90 - 5.00 M/cumm [facility] Hgb 14.0 12.1 - 15.1 g/dL [facility] Hct 42.3 36.1 - 44.3 % [facility] Mean Cellular Volume - CAM 92.1 80.0 - 97.6 fL [facility] Mean Cellular Hemoglobin - CAM 30.5 26.7 - 33.7 pg [facility] Mean Cellular Hemoglobin Concentration - CAM 33.2 32.7 - 35.5 g/dL [facility] Rdw 12.4 11.8 - 14.6 % [facility] Plt 261 140 - 440 K/cumm [facility] Mean Platelet Volume - CAM 8.4 6.8 - 10.4 fL [facility] Neutrophil pct 33.9(L) 38.7 - 74.5 % [facility] Lymphocyte pct 45.0 20.0 - 54.3 % [facility] Monos 13.1 4.3 - 13.5 % [facility] Eosinophil pct 6.3(H) 0.0 - 6.0 % [facility] Basophil pct 1.7 0.0 - 3.0 % [facility] Neutrophil abs 1.2(L) 1.8 - 6.6 K/cumm [facility] Lymphocyte abs 1.6 1.2 - 3.3 K/cumm [facility] Monocyte abs 0.5 0.2 - 1.2 K/cumm [facility] Eosinophils, abs 0.2 0.0 - 0.5 K/cumm [facility] Basophil abs 0.1 0.0 - 0.2 K/cumm [facility] Blood specimen (specimen) 02/01/2017 8:32 AM CDT 02/01/2017 8:35 AM CDT Faustina Bolanos MD PhD LAB BLOOD ORDERABLES E dited Result - Final [facility] [place] [address] documented in this encounter Visit Diagnoses Not on filedocumented in this encounter Care Teams Shoe Dyer Relationship Specialty Start Date End Date Jesus Alberto Smith MD PCP - General 12/13/16 02/10/17 documented as of this encounter
--- OUTSIDE RECORDS SUMMARY | 2024-10-06 07:09 | XMS_ITS | Encounter Summary ---
Author Organization [facility] Healthcare Address [address] [place] [address] Care Team Providers Care Sheetmetal Trades Worker Name Role Phone Jesus Alberto Smith MD Primary Care Provider [phone] Encounter Details Date Type Department Care Team (Latest Contact Info) Description 02/11/2017 10:19 AM CDT - 02/11/2017 11:59 PM T Hospital Encounter [facility] OP INTERIM [phone] Kristen Mancera MD [address] IM B[employer], [address] [place] [address] Discharge Disposition: Discharge to home or self care Social History Tobacco Use Types Packs/Day Years Used Date Smoking Tobacco: Never Assessed Comments Unknown Sex and Gender Information Value Date Recorded Sex Assigned at Not on file 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 Result 1 Test Name: Neutrophil Ab screen Level 1 Specimen Type: serum Result: See separate report scanned into the Clinical Desktop Scanned Laboratory Reports Tab. [facility] Sendout reference lab Blood [facility] Blood specimen (specimen) 02/11/2017 11:28 AM CDT 02/11/2017 10:11 PM CDT us Kristen Mancera MD LAB BLOOD ORDERABLES Edited Resu lt - Final [facility] [place] [address] documented in this encounter Visit Diagnoses Not on filedocumented in this encounter Care Teams Sheetmetal Trades Worker Relationship Specialty Start Date End Date Jesus Alberto Smith MD PCP - General 02/11/17 05/02/17 documented as of this encounter
--- OUTSIDE RECORDS SUMMARY | 2024-10-06 07:10 | XMS_ITS | Encounter Summary ---
Author Organization [employer] Facility Care Team Providers Care Medical Transcriptionist Name Role Phone Unavailable Primary Care Provider Unavailabl e Encounter Details Date Type Department Care Team (Late st Contact Info) Description 05/30/2012 - 05/30/2012 11:59 PM CDT Hospital Encounter LOCATED [facility]IN [facility] Rober Beaver MD [address] [address] Other screening mammogram; Other breast disorders Social History Tobacco Use Types Packs/Day Years Used Date Smoking Tobacco: Never Assessed Comments Unknown Sex and Gender Information Value Date Recorded Sex Assigned at Not on file 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
--- OUTSIDE RECORDS SUMMARY | 2024-10-06 07:10 | XMS_ITS | Encounter Summary ---
Author Organization 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 MERCEDES LIMA M.D. FINAL REPORT The radiology attending physician has personally reviewed this study, and has reviewed and/or edited this written report and agrees with it. ACC# ??Date Time ??Exam [id number] Jan 05, 2013 12:30:00 [facility] [id number] Diag Mammogram Unilateral L ?? Technologist(s): Joanne Isaacs; ; EXAMINATION: ?? LEFT FULL FIELD DIGITAL DIAGNOSTIC MAMMOGRAM HISTORY: 42-year-old woman here for short interval follow-up of an abnormal mammogram. Baseline screening mammogram dated 05/30/2012 and subsequent diagnostic imaging evaluation with mammography and sonography demonstrated a probably benign 7 mm lobulated mass in the subareolar LEFT breast. ??A short interval follow-up diagnostic mammogram is requested. TECHNIQUE: Full field digital craniocaudal and mediolateral oblique and implant displaced views of the LEFT breast were obtained utilizing full field digital mammography. COMPARISON: 05/30/2012, 06/16/2012 BREAST PARENCHYMAL COMPOSITION: Extremely dense. ??This may lower the sensitivity of mammography. FINDINGS: A subpectoral saline implant is again noted. ??The previous noted 7 mm mass in the subareolar LEFT breast is no longer visualized. ?? There are no suspicious masses, architectural distortion, or microcalcifications in the LEFT breast. ?? IMPRESSION: OVERALL FINAL ASSESSMENT: ??BI-RADS Category 1: Negative. RECOMMENDATION: ??Annual screening mammography is recommended. ??The patient will be due for bilateral screening mammogram in May 2013. ?? The patient was informed. ?? Requested By: Rober Cardona ??MLilyD. Dictated By: ?? MERCEDES LIMA M.D. ??on Jan 05 2013 12:47P This document has been electronically signed by: IVIS MULLER M.D. on Jan 05 2013 12:48P Procedure Note Provider, MD Inés - 01/30/2017 IVIS MULLER M.D. MERCEDES LIMA M.D. FINAL REPORT The radiology attending physician has personally reviewed this study, and has reviewed and/or edited this written report and agrees with it. ACC# Date Time Exam [id number] Jan 05, 2013 12:30:00 [facility] [id number] Diag Mammogram Unilateral L Technologist(s): Joanne Isaacs; ; EXAMINATION: LEFT FULL FIELD DIGITAL DIAGNOSTIC MAMMOGRAM HISTORY: 42-year-old woman here for short interval follow-up of an abnormal mammogram. Baseline screening mammogram dated 05/30/2012 and subsequent diagnostic imaging evaluation with mammography and sonography demonstrated a probably benign 7 mm lobulated mass in the subareolar LEFT breast. A short interval follow-up diagnostic mammogram is requested. TECHNIQUE: Full field digital craniocaudal and mediolateral oblique and implant displaced views of the LEFT breast were obtained utilizing full field digital mammography. COMPARISON: 05/30/2012, 06/16/2012 BREAST PARENCHYMAL COMPOSITION: Extremely dense. This may lower the sensitivity of mammography. FINDINGS: A subpectoral saline implant is again noted. The previous noted 7 mm mass in the subareolar LEFT breast is no longer visualized. There are no suspicious masses, architectural distortion, or microcalcifications in the LEFT breast. IMPRESSION: OVERALL FINAL ASSESSMENT: BI-RADS Category 1: Negative. RECOMMENDATION: Annual screening mammography is recommended. The patient will be due for bilateral screening mammogram in May 2013. The patient was informed. Requested By: Rober Cardona M.D. Dictated By: MERCEDES LIMA M.D. on Jan 05 2013 12:47P This document has been electronically signed by: IVIS MULLER M.D. on Jan 05 2013 12:48P us Historical Provider MD BYRD MAMMO PROCEDURES Anat l Result documented in this encounter Visit Diagnoses Diagnosis Lump or mass in breast Breast replaced documented in this encounter
--- OUTSIDE RECORDS SUMMARY | 2024-10-06 07:10 | XMS_ITS | Encounter Summary ---
Author Organization [facility] Facility Care Team Providers Care Shuttle Final Inspector Name Role Phone Unavailable Primary Care Provider Unavailabl e Encounter Details Date Type Department Care Team (Late st Contact Info) Description 02/15/2014 - 02/15/2014 11:59 PM CDT Hospital Encounter [facility] Rober Beaver MD [address] [address] Mastodynia Social History Tobacco Use Types Packs/Day Years Used Date Smoking Tobacco: Never Assessed Comments Unknown Sex and Gender Information Value Date Recorded Sex Assigned at Not on file Legal Sex Female 10:19 PM PORTFOLIO ACCOUNTANT Gender Identity Not on file Sexual Orientation Not on file documented as of this encounter Plan of Treatment Not on file documented as of this encounter Procedures Procedure Name Priority Date/Time Associated Diagnosis Comments DIAGNOSTIC MAMMOGRAM 2D BILATERAL Routine 02/15/2014 9:44 AM CDT documented in this encounter Results * DIAGNOSTIC MAMMOGRAM 2D BILATERAL (02/15/2014 9:44 AM CDT) Anatomical Region Laterality Modality Breast Bilateral Mammography 02/15/2014 9:44 AM CDT Narrative 02/15/2014 1:02 PM CDT IVIS MULLER M.D. KENIA RUSSELL, FINAL REPORT The radiology attending physician has personally reviewed this study, and has reviewed and/or edited this written report and agrees with it. ACC# ??Date Time ??Exam [id number] February 15, 2014 09:44:00 [facility] [id number] Diag Mammogram Bilateral ?? Technologist(s): Selina Poon; ; EXAMINATION: ?? BILATERAL FULL FIELD DIGITAL DIAGNOSTIC MAMMOGRAM WITH CAD HISTORY: 43-year-old woman with bilateral breast augmentation in 2002 presents with discomfort behind her right breast implant when she bends forward. TECHNIQUE: ??Full field digital craniocaudal and mediolateral oblique views of both breasts were obtained. ??Computer Aided Detection was performed with Resermap.3 version 9.3. COMPARISON: 01/05/2013, 06/16/2012, 05/30/2012. BREAST PARENCHYMAL COMPOSITION: The breasts are extremely dense, which lowers the sensitivity of mammography. FINDINGS: ??There are bilateral subpectoral saline implants. No new suspicious abnormality is seen within either breast on mammogram. ?? IMPRESSION: OVERALL FINAL ASSESSMENT: ??BI-RADS Category 1: Negative. RECOMMENDATION: ??Annual screening mammography is recommended. ?? Requested By: Rober Cardona ??M.DLily Dictated By: ?? KENIA RUSSELL, ?? on February ??2013 10:12A This document has been electronically signed by: IVIS MULLER M.D. on February ??2013 ??1:02P Procedure Note Provider, MD Inés - 01/30/2017 IVIS MULLER M.D. KENIA RUSSELL, FINAL REPORT The radiology attending physician has personally reviewed this study, and has reviewed and/or edited this written report and agrees with it. ACC# Date Time Exam [id number] February 15, 2014 09:44:00 [facility] [id number] Diag Mammogram Bilateral Technologist(s): Selina Poon; ; EXAMINATION: BILATERAL FULL FIELD DIGITAL DIAGNOSTIC MAMMOGRAM WITHCAD HISTORY: 43-year-old woman with bilateral breast augmentation in 2002 presents with discomfort behind her right breast implant when she bends forward. TECHNIQUE: Full field digital craniocaudal and mediolateral oblique views of both breasts were obtained. Computer Aided Detection was performed with Particle 1.3 version 9.3. COMPARISON: 01/05/2013, 06/16/2012, 05/30/2012. BREAST PARENCHYMAL COMPOSITION: The breasts are extremely dense, which lowers the sensitivity of mammography. FINDINGS: There are bilateral subpectoral saline implants. No new suspicious abnormality is seen within either breast on mammogram. IMPRESSION: OVERALL FINAL ASSESSMENT: BI-RADS Category 1: Negative. RECOMMENDATION: Annual screening mammography is recommended. Requested By: Rober Cardona M.D. Dictated By: KENIA RUSSELL on Feb 15 2014 10:12A This document has been electronically signed by: IVIS MULLER M.D. on Feb 15 2014 1:02P Historical Provider MD BYRD MAMMO PROCEDURES Anat l Result documented in this encounter Visit Diagnoses Diagnosis Mastodynia documented in this encounter
--- OUTSIDE RECORDS SUMMARY | 2024-10-06 07:10 | XMS_ITS | Encounter Summary ---
Author Organization [facility] Facility Care Team Providers Care Fish And Wildlife Technician Name Role Phone Unavailable Primary Care Provider Unavailabl e Encounter Details Date Type Department Care Team (Late st Contact Info) Description 08/24/2007 - 08/24/2007 11:59 PM ASSISTANT ENGINEER Hospital Encounter [facility] Jono Thomas [address] [facility] [address] [place] [address] Social History Tobacco Use Types Packs/Day Years Used Date Smoking Tobacco: Never Assessed Comments Unknown Sex and Gender Information Value Date Recorded Sex Assigned at Not on file Legal Sex Female 10:19 PM ASSISTANT ENGINEER Gender Identity Not on file Sexual Orientation Not on file documented as of this encounter Plan of Treatment Not on file documented as of this encounter Visit Diagnoses Not on filedocumented in this encounter
--- OUTSIDE RECORDS SUMMARY | 2024-10-06 07:10 | XMS_ITS | Encounter Summary ---
Author Organization [facility] Facility Care Team Providers Care Tobacco Drying Machine Operator Name Role Phone Unavailable Primary Care Provider Unavailabl e Encounter Details Date Type Department Care Team (Late st Contact Info) Description 11/11/2012 - 11/11/2012 11:59 PM ASSISTANT INVENTORY MANAGER Hospital Encounter [facility] Mike Beatty MD [address] [place] [address] Status post kidney transplant Social History Tobacco Use Types Packs/Day Years Used Date Smoking Tobacco: Never Assessed Comments Unknown Sex and Gender Information Value Date Recorded Sex Assigned at Not on file Legal Sex Female 10:19 PM ASSISTANT INVENTORY MANAGER Gender Identity Not on file Sexual Orientation Not on file documented as of this encounter Plan of Treatment Not on file documented as of this encounter Procedures Procedure Name Priority Date/Time Associated Diagnosis Comments DISCHARGE LABORATORY CUMULATIVE REPORT Routine 11/14/2012 9:10 AM ASSISTANT INVENTORY MANAGER SPECIMEN SOURCE Routine 11/11/2012 11:14 AM ASSISTANT INVENTORY MANAGER BLOOD CLASS II AB SCR NON-RENAL SINGLE ANTIGEN Routine 11/11/2012 11:14 AM ASSISTANT INVENTORY MANAGER BLOOD CLASS I AB SCR NON-RENAL SINGLE ANTIGEN Routine 11/11/2012 11:14 AM ASSISTANT INVENTORY MANAGER documented in this encounter Results * Discharge Laboratory Cumulative Report (11/14/2012 9:10 AM ASSISTANT INVENTORY MANAGER) 11/14/2012 9:10 AM ASSISTANT INVENTORY MANAGER Narrative HISTORICAL RESULTS - 11/14/2012 9:10 AM ASSISTANT INVENTORY MANAGER ? [facility] ? Department of Laboratories ?[facility] [address] ?Private Outpatient ?Private ? Physician ?Office Patient Name: ? KAREN DIXON Med Rec Number: ?? [id number] Date of : ?1970 Gender/Age: ? Female 42 years Doctor: ? Mike Latham M.D. Report Date/Time: 11/14/2012 9:10:30 AM ?* Abnormal ??C Critical ??f Footnote ??^ Corrected ??L Low ??H High ?i Interp Data ??@ Reference Lab ?Chart Type: Cumulative ?HLA ? 11/11/2012 ? 11:14:00 Test Class I PRA IgG ?35 Class I AB ID IgG ?A23(9) Class I AB ID IgG ?A24(9) Class I AB ID IgG ?A25 Class I AB ID IgG ?A32 Class I AB ID IgG ?B35 Class I AB ID IgG ?B45 Class I AB ID IgG ?B46 Class I AB ID IgG ?B50 Class I AB ID IgG ?B71(70) Class I AB ID IgG ?B72(70) Class I AB ID IgG ?B75 Class I AB ID IgG ?B76 Class I AB ID IgG ?B82 Class I CREG AB ID IgG ? See Below Class II PRA IgG ? 0 Class I Antigens to Avoid. ?? See Below Class II Antigens to Avoid. ??See Below DSA ?Not Applicable DSA II ? Not Applicable DSA II Present ? Not Applicable DSA Present ?Not Applicable 11/11/2012 ??11:14:00 ??Class I CREG AB ID IgG ? B4C CREG ? B5(51, 52), 44, 13, 38, 17(57, 58), *27:05, 37, 47, 49, 53, 59, 63, 77 ? and A9(23, 24), 25, 32. 11/11/2012 ??11:14:00 ??Class I Antigens to Avoid. ? See specificities 11/11/2012 ??11:14:00 ??Class II Antigens to Avoid. ? None ?HLA ?Specimen Source ?11/11/2012 ?11:14:00 Test Specimen Source. ??Peripheral Blood ? PENDING TESTS Collect Date ??Collect Time ??Order Name ?Order Status 11/11/2012 ?11:14:00 ?HLA Class I (ABC) LowRes ?Ordered 11/11/2012 ?11:14:00 ?HLA Class II (DRB) Low Res ?Ordered 11/11/2012 ?11:14:00 ?HLA Class II (DRB/DQB) HighRes ??Ordered 11/11/2012 ?11:14:00 ?HLDNA EXT NR ?Ordered 11/11/2012 ?11:14:00 ?HLSpecimen Source Typing ?Ordered ? CANCELLED Collect Date ??Collect Time ??Order Name ?Cancel Reason 11/11/2012 ?11:06:00 ?HLA Test for [facility] ??Lab Operations Cancel Historical Provider MD LAB BLOOD ORDERABLES Anat l Result Performing Organization Address [facility] de Phone Number HISTORICAL RESULTS * Specimen source (11/11/2012 11:14 AM ASSISTANT INVENTORY MANAGER) Referral specimen source Peripheral Blood HISTORICAL RESULTS Miscellaneous 11/11/2012 11: 14 AM ASSISTANT INVENTORY MANAGER Mike Latham MD LAB BLOOD ORDERABLES Final Result Performing Organization Address [facility] de Phone Number HISTORICAL RESULTS * Blood Class II AB SCR Non-Renal Single Antigen (11/11/2012 11:14 AM ASSISTANT INVENTORY MANAGER) Class II PRA IgG 0 % HISTORICAL RESULTS DSA II Not Applicable HISTO RICAL RESULTS DSA II Present Not Applicable HISTORICAL RESULTS Class II Ag to Avoid None HISTORICAL RESULTS Blood specimen (specimen) 11/11/2012 11:14 AM ASSISTANT INVENTORY MANAGER Mike Latham MD LAB BLOOD ORDERABLES Final Result Performing Organization Address [facility] de Phone Number HISTORICAL RESULTS * Blood Class I AB SCR Non-Renal Single Antigen (11/11/2012 11:14 AM ASSISTANT INVENTORY MANAGER) Class I PRA IgG 35 % HISTORICAL RESULTS SPECNER I ID AB A23(9) A24(9) A25 A32 B35 B45 B46 B50 B71(70) B72(70) B75 B76 B82 HISTORICAL RESULTS SPENCER I ID CREG B4C CREG B5(51, 52), 44, 13, 38, 17(57, 58), *27:05, 37, 47, 49, 53, 59, 63, 77 and A9(23, 24), 25, 32 HISTORICAL RESULTS DSA I Not Applicable HISTO RICAL RESULTS DSA I Present Not Applicable H ISTORICAL RESULTS Class I Ag to Avoid See specificities HISTORICAL RESULTS Blood specimen (specimen) 11/11/2012 11:14 AM ASSISTANT INVENTORY MANAGER us Mike Latham MD LAB BLOOD ORDERABLES Final Result HISTORICAL RESULTS documented in this encounter Visit Diagnoses Diagnosis Status post kidney transplant documented in this encounter
--- OUTSIDE RECORDS SUMMARY | 2024-10-06 07:10 | XMS_ITS | Encounter Summary ---
Author Organization [facility] Facility Care Team Providers Care Home Health Attendant Name Role Phone Unavailable Primary Care Provider Unavailabl e Encounter Details Date Type Department Care Team (Late st Contact Info) Description 03/03/2007 - 03/03/2007 11:59 PM CDT Hospital Encounter [facility] Jono Thomas [address] [facility] [address] [place] [address] Social History Tobacco Use Types Packs/Day Years Used Date Smoking Tobacco: Never Assessed Comments Unknown Sex and Gender Information Value Date Recorded Sex Assigned at Not on file Legal Sex Female 10:19 PM FIXER SUPERVISOR Gender Identity Not on file Sexual Orientation Not on file documented as of this encounter Plan of Treatment Not on file documented as of this encounter Visit Diagnoses Not on filedocumented in this encounter
--- OUTSIDE RECORDS SUMMARY | 2024-10-06 07:10 | XMS_ITS | Encounter Summary ---
Author Organization [facility] Facility Care Team Providers Care Plastic Parts Designer Name Role Phone Unavailable Primary Care Provider Unavailabl e Encounter Details Date Type Department Care Team (Late st Contact Info) Description 06/16/2012 - 06/16/2012 11:59 PM CDT Hospital Encounter [facility] Rober Beaver MD [address] [address] Lump or mass in breast Social History Tobacco Use Types Packs/Day Years Used Date Smoking Tobacco: Never Assessed Comments Unknown Sex and Gender Information Value Date Recorded Sex Assigned at Not on file Legal Sex Female 10:19 PM INDUSTRIAL MACHINE OPERATOR Gender Identity Not on file Sexual Orientation Not on file documented as of this encounter Plan of Treatment Not on file documented as of this encounter Visit Diagnoses Diagnosis Lump or mass in breast documented in this encounter
--- OUTSIDE RECORDS SUMMARY | 2024-10-06 07:10 | XMS_ITS | Encounter Summary ---
Author Organization [facility] Facility Care Team Providers Care Tape Editor Name Role Phone Unavailable Primary Care Provider Unavailabl e Encounter Details Date Type Department Care Team (Late st Contact Info) Description 02/27/2007 - 02/27/2007 11:59 PM CDT Hospital Encounter [facility] Jono Thomas [address] [facility] [address] [place] [address] Social History Tobacco Use Types Packs/Day Years Used Date Smoking Tobacco: Never Assessed Comments Unknown Sex and Gender Information Value Date Recorded Sex Assigned at Not on file Legal Sex Female 10:19 PM HOG DRIVER Gender Identity Not on file Sexual Orientation Not on file documented as of this encounter Plan of Treatment Not on file documented as of this encounter Visit Diagnoses Not on filedocumented in this encounter
--- OUTSIDE RECORDS SUMMARY | 2024-10-06 07:15 | XMS_ITS | Continuity of Care Document ---
Author Organization [facility] Address [address] [place] [address] [address] [place] [address] Phone Care Team Providers Care All Source Intelligence Analyst Name Role Phone Jaleel QUINTERO, OTR/L, PATTITLuther Unavailable Alma vailable Procedures Procedure Date OT EVALUATION ORTHOTIC FITTING Hand Advance Directives Directive Yes / No Effective Date File Name No Information Encounters Encounter Description Practice Location Reason(s) For Visit Diagnoses Date Provider Providers Copied on Encounter [facility], [address] [place], [place] [address], [place], [place], [id number], [place] tel:[phone] [place] Pain in right handOther specified soft tissue disordersStiffne ss of right hand, not elsewhere classifiedMuscle weakness (generalized)Spr ain of metacarpophalang eal joint of unsp finger, subs 6 Jaleel Sloan. [address] [facility], [address], [place], [address], [place]. tel:[phone] Referring Provider: Morgan Beatty, [address] [facility] [address], [place], [address]. tel:[phone] Family History Family Member Type Diagnosis Age At Onset No Information Payers Payer name Insurance type Covered alliance party ID Authorrasharda carole(s) [facility] [id number] [facility] 2016 Social History Type Description Quantity Date Captured Comments Sex Female Smoking Status No Information Chief Complaint And Reason For Visit No Information Reason For Referral Reason For Referral No Information History Of Present Illness Encounter Date Complaint History Of Prese nt Illness No Information Functional Status Date Functional Assessmen t No Information Instructions Date Instruction Additional Infor mation No Information Assessments Type Assessment Date No Information Patient Care Teams Name Effective Dates (start - stop) Status Members No Information
--- OUTSIDE RECORDS SUMMARY | 2024-10-06 07:16 | XMS_ITS | Continuity of Care Document ---
Author Organization [facility] Address [address] [place] [address] [address] [place] [address] Phone Care Team Providers Care Powerhouse Laborer Name Role Phone Li OD, Altaf Unavailable Unavailable Advance Directives Directive Yes / No Effective Date File Name No Information Encounters Encounter Description Practice Location Reason(s) For Visit Diagnoses Date Provider Providers Copied on Encounter [facility], [address] [place] [address] [address], [place], [place], [id number], [place] tel:[phone] [facility] [place] No Information Giovanni- [phone] Li OD Altaf. [address] [facility] , [address], [place], [address], [place]. tel:[phone] Family History Family Member Type Diagnosis Age At Onset No Information Payers Payer name Insurance type Covered libertarian ID Authoriza tion(s) No Information Social History Type Description Quantity Date Captured [...]
--- OUTSIDE RECORDS SUMMARY | 2024-10-06 11:15 | XMS_ITS | Encounter Summary ---
Author Organization [facility] Address [address] [place] [address] Care Team Providers Care Alternative Dispute Resolution Mediator Name Role Phone Rober Cardona MD Unavailable [phone] Jesus Alberto Smith MD Primary Care Provider Unavailabl e Reason for Visit * Reason Comments IUD Encounter Details Date Type Department Care Team (Late st Contact Info) Description 02/27/2019 2:10 PM CDT Office Visit [facility] Medical [facility] - PATENT EXAMINER [address] [place] [address], [address] [place] [phone] Rober Cardona MD [address] [place] [phone] IUD contraception (Primary Dx) Social History [...] 4 weeks. Orders Placed This Encounter ??? MI LEVONORGESTREL IU 52MG Order Specific Question: Was contrecptive device supplied by patient or third republican? Answer: No ??? MI REMOVE INTRAUTERINE DEVICE ??? MI INSERT INTRAUTERINE DEVICE ??? levonorgestrel (MIRENA) IUD [...] device documented in this encounter Care Teams Alternative Dispute Resolution Mediator Relationship Specialty Start Date End Date Jesus Alberto Smith MD [address] [place] [phone] PCP - General Internal Medicine 08/30/16 Rober Cardona MD [facility] [address] [place] [phone] Purchasing Assistant Obstetrics and Gynecology 08/27/16 documented as of this encounter
--- OUTSIDE RECORDS SUMMARY | 2024-10-06 11:15 | XMS_ITS | Clinical Summary ---
Author Organization [facility] Address [address] [place] [address] Care Team Providers Care Patient Transport Officer Name Role Phone Rober Cardona MD Unavailable [phone] Jesus Alberto Smith MD Primary Care Provider Unavailabl e Source Comments [facility],non-owned Affiliates and Associated Physician Practices is amultiple site organization consisting of ambulatory clinics and hospital sitesin [place], [place], [place] and [place]. This disclosure is being madepursuant to the Care Everywhere program and may not contain all information available regarding this patient. Last updated 18.[facility] [employer] Allergies Active Allergy Reactions Criticality Noted Date [...] Comments Blood Pressure 110/72 11/21/2020 1:44 PM AIRLINE CAPTAIN Pulse 77 12/05/2019 10:30 AM AIRLINE CAPTAIN Temperature 37.2 ??C (99 ??F) 12/05/2019 10:30 AM AIRLINE CAPTAIN Respiratory Rate 15 12/05/2019 10:30 AM AIRLINE CAPTAIN Oxygen Saturation 99% 12/05/2019 10:30 AM AIRLINE CAPTAIN Inhaled Oxygen Concentration - - Weight 54.2 kg (119 lb 8 oz) 11/21/2020 1:44 PM AIRLINE CAPTAIN Height 157.5 cm (5' 2 ) 11/21/2020 1:44 PM AIRLINE CAPTAIN Body Mass Index 21.86 11/21/2020 1:44 PM AIRLINE CAPTAIN Plan of Treatment Health Maintenance Due Date [...] IG LB+HPV APTIMA Routine 11/21/2020 3:05 PM AIRLINE CAPTAIN Well woman exam with routine gynecological exam MAMMOGRAPHY ORDER Routine 11/19/2016 from Last 3 Months or Most Recently Relevant to Health Maintenance Results * PAP IG LB+HPV APTIMA (11/21/2020 3:05 PM AIRLINE CAPTAIN) Diagnosis [facility] ACCOUNT BILL Comment: NEGATIVE FOR INTRAEPITHELIAL LESION OR MALIGNANCY. THIS SPECIMEN WAS RESCREENED PART OF OUR RETAIL SALESWORKER PROGRAM. Specimen Adequacy [facility] ACCOUNT BILL Comment:Satisfactory for elena luation. No endocervical component is identified. Clinician Provided ICD10 [facility] ACCOUNT BILL Comment: Z01.419 Z97.5 Performed by [facility] ACCOUNT BILL Comment:[facility] Hides And Skins Colorer (ASCP) QC Reviewed by [facility] ACCOUNT [...] UTERINE CERVIX / Unknown 11/21/2020 3:05 PM AIRLINE CAPTAIN 11/21/2020 Narrative [facility] ACCOUNT BILL - 11/27/2020 1:08 PM AIRLINE CAPTAIN Source.............Cervix No. of containers..01 ThinPrep Vial Resulting Agency Comment Lab Testing performed at: [address] ??[facility] [phone] Rober Cardona MD LAB - PATHOLOGY/CYTO LOGY ORDERABLES [facility] ACCOUNT BILL [address] [place] [address] * MAMMOGRAPHY ORDER (11/19/2016) Anatomical Region Laterality Modality Mammography Rober Cardona MD MAMMO ORDERABLES from Last 3 Months or Most Recently Relevant to Health Maintenance Care Teams Patient Transport Officer Relationship Specialty Start Date End Date Jesus Alberto Smith MD [address] [place] [address] PCP - General Internal Medicine 08/30/16 Rober Cardona MD [address] [place] [address] Minister Assistant Obstetrics and Gynecology 08/27/16
--- OUTSIDE RECORDS SUMMARY | 2024-10-06 11:15 | XMS_ITS | Encounter Summary ---
Author Organization [facility] Address [address] [place] [address] Care Team Providers Care Workers' Compensation Mediator Name Role Phone Rober Cardona MD Unavailable [phone] Jesus Alberto Smith MD Primary Care Provider Unavailabl e Reason for Visit * Reason Comments Ear Pain Encounter Details Date Type Department Care Team (Late st Contact Info) Description 01/09/2019 10:00 AM CDT Office Visit [facility] AT [address] [address] Provider, [facility] Exp Nameoki Non-recurrent acute suppurative otitis media [...] Patient Instructions * Patient Instructions* Ramandeep Moya, GAS OPERATIONS SUPERINTENDENT-ETCHER ELECTROLYTIC - 01/09/2019 10:25 AM CDT Take all [...] COMPLICATION AND REQUIRES IMMEDIATE ATTENTION. Ear Infection EMBEDDED SYSTEMS SOFTWARE ENGINEER: An ear infection is also called otitis [...] ask them during your visits. ?? Copyright [employer] 2019 Information is for End User's use only and may not be sold, redistributed or otherwise used for commercial purposes. All illustrations and images included in CareNotes?? are the copyrighted property of Media [employer], [employer]. or Node1 The above information is an program aide group work only. It is not intended as medical [...] Primary documented in this encounter Care Teams Workers' Compensation Mediator Relationship Specialty Start Date End Date Jesus Alberto Smith MD [facility] [address] [place] [address] PCP - General Internal Medicine 08/30/16 Rober Cardona MD [facility] [address] [place] [phone] Forest Engineer Obstetrics and Gynecology 08/27/16 documented as of this encounter
--- OUTSIDE RECORDS SUMMARY | 2024-10-06 11:15 | XMS_ITS | Encounter Summary ---
Author Organization [facility] Address [address] [place] [address] Care Team Providers Care Sweet Goods Machine Operator Name Role Phone Rober Cardona MD Unavailable [phone] Jesus Alberto Smith MD Primary Care Provider Unavailabl e Reason for Visit * Reason Comments Fever Encounter Details Date Type Department Care Team (Late st Contact Info) Description 12/05/2019 10:20 AM DATA DESIGNER Office Visit [facility] [place] [address] [place] [address] Provider, [facility] Exp Nameoki Influenza A (Primary [...] Comments Blood Pressure 102/70 12/05/2019 10:30 AM DATA DESIGNER Pulse 77 12/05/2019 10:30 AM DATA DESIGNER Temperature 37.2 ??C (99 ??F) 12/05/2019 10:30 AM DATA DESIGNER Respiratory Rate 15 12/05/2019 10:30 AM DATA DESIGNER Oxygen Saturation 99% 12/05/2019 10:30 AM DATA DESIGNER Inhaled Oxygen Concentration - - Weight 53.1 kg (117 lb) 12/05/2019 10:30 AM DATA DESIGNER Height 157.5 cm (5' 2 ) 12/05/2019 10:30 AM DATA DESIGNER Body Mass Index 21.4 12/05/2019 10:30 AM DATA DESIGNER documented in this encounter Patient Instructions * Patient Instructions* Ramandeep Moya APRN-FLATWORK FOLDER - 12/05/2019 10:36 AM DATA DESIGNER Images from the original note were not [...] SHOULD BE TAKEN SERIOUSLY. Patient Education Influenza EXECUTIVE SERVICES ADMINISTRATOR: Influenza (the flu) is an infection caused [...] ?? Clean shared items with a germ-killing carbonating stone cleaner. Clean table surfaces, doorknobs, and light [...] ask them during your visits. ?? Copyright [employer] 2019 Information is for End User's use only and may not be sold, redistributed or otherwise used for commercial purposes. All illustrations and images included in CareNotes?? are the copyrighted property of [employer]Proprietary[employer]. or Whistle The above information is an domestic maid only. It is not intended as medical advice for individual conditions or treatments. Talk to your doctor, nurse or pharmacist before following any medical regimen to see if it is safe and effective for you. DESIGNER documented in this encounter Progress Notes * Ramandeep Moya APRN-CNP - 12/05/2019 10:22 AM CST Images from the original note were not included. Subjective: Karen Medeiros is a 49 year old female who presents to the clinic for Chief Complaint Patient presents with ??? Fever . Her Primary Care Physician is Jesus Alberot Smith MD. She reports sore throat, congestion, [...] file Gets together: Not on file Attends yarsani service: Not on file Active member of [...] Influenza Expiration Date 09/10/2021 Ramandeep Moya DNP, LOAD DISPATCHER LOCAL-LAYNE 12/05/2019 10:37 AM DESIGNER documented in this encounter Plan of Treatment [...] NASOPHARYNGEAL SWAB / Unknown 12/05/2019 Ramandeep Moya APRN-FLATWORK FOLDER LAB - POINT OF CARE ORDERABLES documented in this encounter Visit Diagnoses Diagnosis Influenza A- Primary Influenza with other respiratory manifestations documented in this encounter Care Teams Sweet Goods Machine Operator Relationship Specialty Start Date End Date Jesus Alberto Smith MD [address] [facility] [address] [place] [address] PCP - General Internal Medicine 08/30/16 Rober Cardona MD [address] [facility] [address] [place] [phone] Ton Container Shipper Obstetrics and Gynecology 08/27/16 documented as of this encounter
--- OUTSIDE RECORDS SUMMARY | 2024-10-06 11:15 | XMS_ITS | Encounter Summary ---
Author Organization [facility] Address [address] [facility] [place] [address] Care Team Providers Care Sighter Name Role Phone Rober Cardona MD Unavailable [phone] Encounter Details Date Type Department Care Team (Late st Contact Info) Description 08/27/2016 Orders Only [facility] - HOTEL REGISTRATION CLERK [address] [place] [address], [address] [place] [address] Rober Cardona MD [address] [place] [address] [place] [address] Social History Tobacco Use Types Packs/Day Years Used Date Smoking Tobacco: Never Assessed Sex and Gender Information Value Date Recorded Sex Assigned at Not on file Gender Identity Not on file Sexual Orientation Not on file documented as of this encounter Plan of Treatment Not on file documented as of this encounter Visit Diagnoses Not on filedocumented in this encounter Care Teams Sighter Relationship Specialty Start Date End Date Rober Cardona MD [address] [place] [address] [place] [phone] Category Manager Obstetrics and Gynecology 08/27/16 documented as of this encounter
--- OUTSIDE RECORDS SUMMARY | 2024-10-06 11:15 | XMS_ITS | Encounter Summary ---
Author Organization [facility] Address [address] [place] [address] Care Team Providers Care Hide Cleaner Name Role Phone Rober Cardona MD Unavailable [phone] Jesus Alberto Smith MD Primary Care Provider Unavailabl e Reason for Visit * Reason Onset Date Comments Follow-up 01/11/2019 Encounter Details Date Type Department Care Team (Late st Contact Info) Description 01/11/2019 Telephone [facility] AT [address] [address] Wilma Casillas Follow-up Social History [...] on filedocumented in this encounter Care Teams Hide Cleaner Relationship Specialty Start Date End Date Jesus Alberto Smith MD [address] [place] [address] PCP - General Internal Medicine 08/30/16 Rober Cardona MD [address] [place] [address] Painter Mirror Obstetrics and Gynecology 08/27/16 documented as of this encounter
--- OUTSIDE RECORDS SUMMARY | 2024-10-06 11:15 | XMS_ITS | Encounter Summary ---
Author Organization [facility] Address [address] [place] [address] Care Team Providers Care Client Server Programmer Name Role Phone Rober Cardona MD Unavailable [phone] Jesus Alberto Smith MD Primary Care Provider Unavailabl e Reason for Visit * Reason Comments Well Women Exam Encounter Details Date Type Department Care Team (Late st Contact Info) Description 08/30/2016 5:00 PM WASTE WATER OR WATER PLANT OPERATOR Office Visit [facility] - RN TRANSPLANT [address] [place] [address], [address] [place] [phone] Rober Cardona MD [address] [place] [address] [place] [phone] IUD contraception (Primary Dx); Well woman [...] Comments Blood Pressure 104/70 08/30/2016 4:28 PM WASTE WATER OR WATER PLANT OPERATOR Pulse - - Temperature - - Respiratory Rate - - Oxygen Saturation - - Inhaled Oxygen Concentration - - Weight 54.9 kg (121 lb) 08/30/2016 4:28 PM WASTE WATER OR WATER PLANT OPERATOR Height 157.5 cm (5' 2 ) 08/30/2016 4:28 PM WASTE WATER OR WATER PLANT OPERATOR Body Mass Index 22.13 08/30/2016 4:28 PM WASTE WATER OR WATER PLANT OPERATOR documented in this encounter Progress Notes [...] Male ??? 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: - Other pertinent history: Current Outpatient [...] (PO REF LAB) IUD good until 02/2019 E WATER OR WATER PLANT OPERATOR documented in this encounter Plan of Treatment Not on file documented as of this encounter Procedures Procedure Name Priority Date/Time Associated Diagnosis Comments PAP IGP CERVICAL CANCER SCREENING Routine 08/30/2016 4:56 PM WASTE WATER OR WATER PLANT OPERATOR Well woman exam with routine gynecological exam PAP IG LB+HPV HR RFLX 16,18 Routine 08/30/2016 4:56 PM WASTE WATER OR WATER PLANT OPERATOR Well woman exam with routine gynecological exam documented in this encounter Results * PAP SMEAR IG HPV HR RFLX 16/18 (PO REF LAB) (08/30/2016 4:56 PM WASTE WATER OR WATER PLANT OPERATOR) Diagnosis [facility] ACCOUNT BILL Comment:NEGATIVE FOR INTRAEP [...] (16/18/31/33/35/39/45/51/52/56/58/59/68) without differentiation. ?. 08/30/2016 4:56 PM WASTE WATER OR WATER PLANT OPERATOR 08/30/2016 Narrative [facility] ACCOUNT BILL - 09/01/2016 9:07 PM WASTE WATER OR WATER PLANT OPERATOR No. of containers..01 CYTYC Thin Prep Vial Resulting Agency Comment [facility] [address] [facility] ??Uriah APRIL [phone] Rober Cardona MD LAB - PATHOLOGY/CYTO LOGY ORDERABLES [facility] ACCOUNT BILL [address] [place] [address] * PAP IGP CERVICAL CANCER SCREENING (PO REF LAB) (08/30/2016 4:56 PM WASTE WATER OR WATER PLANT OPERATOR) Age Gdln ACOG Testing 30-65 [facility] ACCOUNT BILL MICROSCOPIC CYTOLOGIC EXAMINATION OF SMEAR OF SPECIMEN FROM FEMALE GENITAL TRACT PREPARED USING PAPANICOLAOU TECHNIQUE / Unknown 08/30/2016 4:56 PM WASTE WATER OR WATER PLANT OPERATOR 08/30/2016 Narrative [facility] ACCOUNT BILL - 09/01/2016 9:07 PM WASTE WATER OR WATER PLANT OPERATOR No. of containers..01 CYTYC Thin Prep Vial Resulting Agency Comment [facility] [place] [address] [facility] ??Uriah CHEN [phone] Rober Cardona MD LAB - PATHOLOGY/CYTO LOGY ORDERABLES [facility] ACCOUNT BILL [address] [place] [address] documented in this encounter Visit Diagnoses Diagnosis IUD contraception- Primary Well woman exam with routine gynecological exam Routine gynecological examination documented in this encounter Care Teams Client Server Programmer Relationship Specialty Start Date End Date Jesus Alberto Smith MD [address] [place] [address] PCP - General Internal Medicine 08/30/16 Rober Cardona MD [address] [place] [phone] High Density Finishing Operator Obstetrics and Gynecology 08/27/16 documented as of this encounter
--- OUTSIDE RECORDS SUMMARY | 2024-10-06 11:15 | XMS_ITS | Encounter Summary ---
Author Organization [facility] Address [address] [facility] [place] [address] Care Team Providers Care Grave Cleaner Name Role Phone Rober Butt MD Unavailable [phone] Jesus Alberto Smith MD Primary Care Provider Unavailabl e Reason for Referral * Radiology Services (Routine) - Closed Specialty Diagnoses / Procedures Referred By Contac t Referred To Contact Ultrasound Diagnoses Pelvic pain in female Pelvic mass in female Procedures US PELVIS COMPLETE Rober Butt MD [address] [place] [address] [address] [place] [address] Referral ID Status Reason Start Date Expiration Date Visits Re quested Visits Authorized [id number] Closed 09/19/2018 03/18/2019 1 1 GAGE CLOSING CLERK Reason for Visit * Reason Comments Pain Pelvic Encounter Details Date Type Department Care Team (Late st Contact Info) Description 09/19/2018 10:20 AM MORTGAGE CLOSING CLERK Office Visit [facility] - GETTER OPERATOR [address] [place] [address], [address] [place] [phone] Rober Butt MD [address] [place] [address] [address] [place] [address] Pelvic pain in female (Primary [...] Comments Blood Pressure 108/60 09/19/2018 10:19 AM MORTGAGE CLOSING CLERK Pulse - - Temperature - - Respiratory Rate - - Oxygen Saturation - - Inhaled Oxygen Concentration - - Weight 56.2 kg (124 lb) 09/19/2018 10:19 AM MORTGAGE CLOSING CLERK Height 157.5 cm (5' 2 ) 09/19/2018 10:19 AM MORTGAGE CLOSING CLERK Body Mass Index 22.68 09/19/2018 10:19 AM MORTGAGE CLOSING CLERK documented in this encounter Progress Notes * Rober Butt MD - 09/19/2018 10:22 AM CST Subjective: Karen Medeiros is a 48 y.o. No LMP recorded. [...] annual/pap F/U sooner if the pain increases. GAGE CLOSING CLERK documented in this encounter Miscellaneous Notes * Addendum Note - Rober Butt MD - 09/19/2018 12:25 PM CSTAddended by: ROBER BUTT on: 09/19/2018 12:25 PM Modules accepted: Orders GAGE CLOSING CLERK documented in this encounter Plan of Treatment Not on file documented as of this encounter Results * US PELVIS COMPLETE (10/19/2018 2:02 PM MORTGAGE CLOSING CLERK) Anatomical Region Laterality Modality Pelvis Ultrasound Narrative 10/19/2018 2:02 PM MORTGAGE CLOSING CLERK Rober Butt MD ? 10/19/2018 ??2:02 PM [facility] GETTER OPERATOR [place] SUBSTATION OPERATOR HELPER PELVIC ULTRASOUND Pt. Name: Karen Medeiros : [...] [place]: Bowel with peristalsis visible. Wood Tool Maker comments: Right ovarian anechoic masses, 2.4cm and 1.7cm. Color doppler used. Physician Interpretation: ?? Uterus normal with IUD in place and follicles of the right ovary Wood Tool Maker: ??Fidelina Pickard, BEAMS, RT(R) Images will be [...] site documented in this encounter Care Teams Grave Cleaner Relationship Specialty Start Date End Date Jesus Alberto Smith MD [facility] [address] [place] [address] PCP - General Internal Medicine 08/30/16 Rober Butt MD [facility] [address] [place] [address] Media Relations Specialist Obstetrics and Gynecology 08/27/16 documented as of this encounter
--- OUTSIDE RECORDS SUMMARY | 2024-10-06 11:15 | XMS_ITS | Encounter Summary ---
Author Organization [facility] Address [address] [facility] [place] [address] Care Team Providers Care Commercial Food Instructor Name Role Phone Rober Cardona MD Unavailable [phone] Jesus Alberto Smith MD Primary Care [...] COVID-19? No / Unsure 11/14/2020 12:39 PM CARTRIDGE FILLER documented as of this encounter Plan of Treatment Not on file documented as of this encounter Visit Diagnoses Not on filedocumented in this encounter Care Teams Commercial Food Instructor Relationship Specialty Start Date End Date Jesus Alberto Smith MD [address] [place] [address] PCP - General Internal Medicine 08/30/16 Rober Cardona MD [address] [place] [address] Roll Icer Machine Obstetrics and Gynecology 08/27/16 documented as of this encounter
--- OUTSIDE RECORDS SUMMARY | 2024-10-06 11:15 | XMS_ITS | Encounter Summary ---
Author Organization [facility] Address [address] [place] [address] Care Team Providers Care Statistics Professor Name Role Phone Rober Cardona MD Unavailable [phone] Jesus Alberto Smith MD Primary Care Provider Unavailabl e Reason for Referral * Radiology Services (Routine) - Closed Specialty Diagnoses / Procedures Referred By Contanderson t Referred To Contact Diagnoses Well woman exam with routine gynecological exam Procedures MAMMO BILAT SCREENING Rober Cardona MD [address] [place] [address] [place] [phone] OF SERVICE Referral ID Status Reason Start Date Expiration Date Visits Re quested Visits Authorized [id number] Closed 11/06/2018 05/05/2019 1 1 DING WHEEL FACER Reason for Visit * Reason Comments Well Women Exam Encounter Details Date Type Department Care Team (Late st Contact Info) Description 11/06/2018 11:40 AM GRINDING WHEEL FACER Office Visit [facility] - COUNTY ATTORNEY [address] [place] [address], [address] [place] [phone] Rober Cardona MD [address] [place] [address] [place] [phone] Pelvic pain in female (Primary Dx); [...] Comments Blood Pressure 108/66 11/06/2018 11:34 AM GRINDING WHEEL FACER Pulse - - Temperature - - Respiratory Rate - - Oxygen Saturation - - Inhaled Oxygen Concentration - - Weight 55.3 kg (122 lb) 11/06/2018 11:34 AM GRINDING WHEEL FACER Height 157.5 cm (5' 2 ) 11/06/2018 11:34 AM GRINDING WHEEL FACER Body Mass Index 22.31 11/06/2018 11:34 AM GRINDING WHEEL FACER documented in this encounter Progress Notes * [...] NSAIDs F/U sooner if pelvic pain recurs DING WHEEL FACER documented in this encounter Plan of Treatment Scheduled Orders Name Type Priority Associated Diagnoses Orde r Schedule MAMMO BILAT SCREENING Imaging Routine Well woman exam with routine gynecological exam 1 Occurrences starting 11/06/2018 until 11/06/2019 documented as of this encounter Procedures Procedure Name Priority Date/Time Associated Diagnosis Comments PAP IGP CERVICAL CANCER SCREENING Routine 11/06/2018 11:49 AM GRINDING WHEEL FACER Well woman exam with routine gynecological exam PAP IG LB+HPV HR RFLX 16,18 Routine 11/06/2018 11:49 AM GRINDING WHEEL FACER Well woman exam with routine gynecological exam documented in this encounter Results * PAP IG LB+HPV HR RFLX 16,18 (11/06/2018 11:49 AM GRINDING WHEEL FACER) Diagnosis [facility] INSURANCE BILL Comment:NEGATIVE FOR INTRAEP ITHELIAL LESION OR MALIGNANCY. Specimen Adequacy [facility] INSURANCE BILL Comment: Satisfactory for evaluation. ??Endocervical and/or squamous metaplastic cells (endocervical component) are present. Clinician Provided ICD10 [facility] INSURANCE BILL Comment: R10.2 N83.00 Z01.419 Performed by [facility] INSURANCE BILL Comment:Genaro Terrell isory Accounting Systems Analyst (ASCP) Comment . [facility] INSURANCE BILL Note [...] system. Human papillomavirus High Risk Negative Negative [facility] INSURANCE BILL Comment: This high-risk HPV test detects thirteen high-risk types (16/18/31/33/35/39/45/51/52/56/58/59/68) without differentiation. ?. 11/06/2018 11:4 9 AM GRINDING WHEEL FACER 11/07/2018 Narrative [facility] INSURANCE BILL - 11/08/2018 5:10 PM GRINDING WHEEL FACER No. of containers..01 ThinPrep Vial Resulting Agency Comment [facility] [place] ??[place] CHEN [phone] Rober Cardona MD LAB - PATHOLOGY/CYTO LOGY ORDERABLES [facility] INSURANCE BILL [address] [place] [address] * PAP IGP CERVICAL CANCER SCREENING (11/06/2018 11:49 AM GRINDING WHEEL FACER) Age Gdln ACOG Testing 30-65 [facility] INSURANCE BILL PART OF UTERINE CERVIX / Unknown 11/06/2018 11:49 AM GRINDING WHEEL FACER 11/07/2018 Narrative [facility] INSURANCE BILL - 11/08/2018 5:10 PM GRINDING WHEEL FACER No. of containers..01 ThinPrep Vial Resulting Agency Comment [facility] [place] ??[place] CHEN [phone] Rober Cardona MD LAB - PATHOLOGY/CYTO LOGY ORDERABLES Performing Organization Address City/[facility]/ZIP Co de Phone Number [facility] INSURANCE BILL [address] [place] [address] documented in this encounter Visit Diagnoses Diagnosis Pelvic pain in female- Primary Unspecified symptom associated with female genital organs Ovarian cyst, follicular Follicular cyst of ovary Well woman exam with routine gynecological exam Routine gynecological examination documented in this encounter Care Teams Statistics Professor Relationship Specialty Start Date End Date Jesus Alberto Smith MD [address] [place] [address] PCP - General Internal Medicine 08/30/16 Rober Cardona MD [address] [place] [phone] Pasteurizer Obstetrics and Gynecology 08/27/16 documented as of this encounter
--- OUTSIDE RECORDS SUMMARY | 2024-10-06 11:15 | XMS_ITS | Encounter Summary ---
Author Organization [facility] Address [address] [facility] [place] [address] Care Team Providers Care Mixer Driver Name Role Phone Rober Cardona MD Unavailable [phone] Jesus Alberto Smith MD Primary Care Provider Unavailabl e Reason for Visit * Reason Comments Well Women Exam Encounter Details Date Type Department Care Team (Late st Contact Info) Description 11/21/2020 1:30 PM TIMEKEEPER SUPERVISOR Office Visit [facility] Medical [facility] - FINAL INSPECTOR SHUTTLE [address] [place] [address], [address] [place] [phone] Rober Cardona MD [address] [place] [address] [place] [phone] Well woman exam with routine gynecological [...] COVID-19? No / Unsure 11/14/2020 12:39 PM TIMEKEEPER SUPERVISOR documented as of this encounter Last Filed Vital Signs Vital Sign Reading Time Taken Comments Blood Pressure 110/72 11/21/2020 1:44 PM TIMEKEEPER SUPERVISOR Pulse - - Temperature - - Respiratory Rate - - Oxygen Saturation - - Inhaled Oxygen Concentration - - Weight 54.2 kg (119 lb 8 oz) 11/21/2020 1:44 PM TIMEKEEPER SUPERVISOR Height 157.5 cm (5' 2 ) 11/21/2020 1:44 PM TIMEKEEPER SUPERVISOR Body Mass Index 21.86 11/21/2020 1:44 PM TIMEKEEPER SUPERVISOR documented in this encounter Progress Notes * Rober Cardona MD - 11/21/2020 1:50 PM CST [facility] Rober Cardona MD Female Pelvic Medicine [...] Partners: Male ??? control/protection: I.U.D. Other pertinent LABORER [employer] history: none Other pertinent history: Current Outpatient [...] IUD, good until 2023 Recent mamm at [facility] was normal PLAN See orders, medications, patient [...] Cervical Order Specific Question: Collection Method? Answer: Davenport-Spatula F/U 1 yr or prn KEEPER SUPERVISOR documented in this encounter Plan of Treatment Not on file documented as of this encounter Procedures Procedure Name Priority Date/Time Associated Diagnosis Comments PAP IG LB+HPV APTIMA Routine 11/21/2020 3:05 PM TIMEKEEPER SUPERVISOR Well woman exam with routine gynecological exam documented in this encounter Results * PAP IG LB+HPV APTIMA (11/21/2020 3:05 PM TIMEKEEPER SUPERVISOR) Diagnosis [facility] ACCOUNT BILL Comment: NEGATIVE FOR INTRAEPITHELIAL LESION OR MALIGNANCY. THIS SPECIMEN WAS RESCREENED PART OF OUR AIR BREAKER OPERATOR PROGRAM. Specimen Adequacy [facility] ACCOUNT BILL Comment:Satisfactory for elena luation. No endocervical component is identified. Clinician Provided ICD10 [facility] ACCOUNT BILL Comment: Z01.419 Z97.5 Performed by [facility] ACCOUNT BILL Comment:Jill Mallory ermartha Sand Filler (ASCP) QC Reviewed by [facility] RP ACCOUNT [...] UTERINE CERVIX / Unknown 11/21/2020 3:05 PM TIMEKEEPER SUPERVISOR 11/21/2020 Narrative [facility] ACCOUNT BILL - 11/27/2020 1:08 PM TIMEKEEPER SUPERVISOR Source.............Cervix No. of containers..01 ThinPrep Vial Resulting Agency Comment Lab Testing performed at: [facility] ??[place] CHEN [id number] Rober Cardona MD LAB - PATHOLOGY/CYTO LOGY ORDERABLES [facility] ACCOUNT BILL [address] [place] [address] documented in this encounter Visit Diagnoses Diagnosis Well woman exam with routine gynecological exam- Primary Routine gynecological examination IUD contraception documented in this encounter Care Teams Mixer Driver Relationship Specialty Start Date End Date Jesus Alberto Smith MD [address] [place] [address] PCP - General Internal Medicine 08/30/16 Rober Cardona MD [address] [place] [address] Cost Specialist Obstetrics and Gynecology 08/27/16 documented as of this encounter
--- OUTSIDE RECORDS SUMMARY | 2024-10-06 11:15 | XMS_ITS | Encounter Summary ---
Author Organization [facility] Address [address] [facility] [place] [address] Care Team Providers Care Lpc Name Role Phone Rober Cardona MD Unavailable [phone] Jesus Alberto Smith MD Primary Care Provider Unavailabl e Reason for Visit * Reason Comments Ultrasound Encounter Details Date Type Department Care Team (Latest Contact Info) Description 09/19/2018 11:00 AM MAJOR GIFTS OFFICER OBGYN RADIOLOGY [facility] - AUTOMOTIVE GENERATOR REPAIRER [address] [place] [address], [address] [place] [address] Pelvic pain in female ; [...] 11:27 AM CSTAssociated Order(s): US PELVIS COMPLETE [facility] AUTOMOTIVE GENERATOR REPAIRER JACOB PEDIGREE TRACER PELVIC ULTRASOUND Pt. Name: Karen Medeiros : [...] Cul de Sac: Bowel with peristalsis visible. Guidance Secretary comments: Right ovarian anechoic masses, 2.4cm and 1.7cm. Color doppler used. Physician Interpretation: Uterus normal with IUD in place and follicles of the right ovary Guidance Secretary: Fidelina Pickard RDMS, RT(R) Images will be scanned into the record. Interpreting Physician: Lilian Cardona R GIFTS OFFICER documented in this encounter Plan of Treatment Not on file documented as of this encounter Procedures Procedure Name Priority Date/Time Associated Diagnosis Comments US PELVIS COMPLETE Routine 10/19/2018 2: 02 PM MAJOR GIFTS OFFICER Pelvic pain in female Pelvic mass in female documented in this encounter Results * US PELVIS COMPLETE (10/19/2018 2:02 PM MAJOR GIFTS OFFICER) Anatomical Region Laterality Modality Pelvis Ultrasound Narrative 10/19/2018 2:02 PM MAJOR GIFTS OFFICER Rober Cardona MD ? 10/19/2018 ??2:[address] [facility] AUTOMOTIVE GENERATOR REPAIRER JACOB PEDIGREE TRACER PELVIC ULTRASOUND Pt. Name: Karen Medeiros : [...] [place] de Sac: Bowel with peristalsis visible. Guidance Secretary comments: Right ovarian anechoic masses, 2.4cm and 1.7cm. Color doppler used. Physician Interpretation: ?? Uterus normal with IUD in place and follicles of the right ovary Guidance Secretary: ??Fidelina Pickard, BEAMS, RT(R) Images will be scanned into the record. Interpreting Physician: Lilian Cardona ? Rober Cardona MD ORDERABLES documented in this encounter Visit Diagnoses Diagnosis Pelvic pain in female- Primary Unspecified symptom associated with female genital organs Pelvic mass in female Abdominal or pelvic swelling, mass or lump, unspecified site documented in this encounter Care Teams Lpc Relationship Specialty Start Date End Date Jesus Alberto Smith MD [address] [place] [address] PCP - General Internal Medicine 08/30/16 Rober Cardona MD [facility] [address] [place] [phone] Stamper Blocker Obstetrics and Gynecology 08/27/16 documented as of this encounter
--- OUTSIDE RECORDS SUMMARY | 2024-10-06 11:15 | XMS_ITS | Encounter Summary ---
Author Organization [facility] Address [address] [facility] [place] [address] Care Team Providers Care Highway Painter Name Role Phone Rober Cardona MD Unavailable [phone] Jesus Alberto Smith MD Primary Care Provider Unavailabl e Encounter Details Date Type Department Care Team (Late st Contact Info) Description 11/29/2018 Orders Only [facility] - SUNGLASS CLIP ATTACHER [address] [place] [address], [address] [place] [address] Rober Cardona MD [address] [place] [address] [place] [phone] Well woman exam with routine gynecological [...] examination documented in this encounter Care Teams Highway Painter Relationship Specialty Start Date End Date Jesus Alberto Smith MD [address] [place] [address] [place] [phone] PCP - General Internal Medicine 08/30/16 Rober Cardona MD [address] [place] [address] [place] [phone] Shot Polisher And Inspector Obstetrics and Gynecology 08/27/16 documented as of this encounter
--- OUTSIDE RECORDS SUMMARY | 2024-10-06 11:15 | XMS_ITS | Encounter Summary ---
Author Organization [facility] Address [address] [facility] [place] [address] Care Team Providers Care Extrusion Utility Worker Name Role Phone Rober Cardona MD Unavailable [phone] Jesus Alberto Smith MD Primary Care Provider Unavailabl e Reason for Visit * Reason Comments Ultrasound * Radiology Services (Routine) - Closed Specialty Diagnoses / Procedures Referred By Contac t Referred To Contact Ultrasound Diagnoses Pelvic pain in female Pelvic mass in female Procedures US PELVIS COMPLETE Rober Cardona MD [address] [place] [address] [place] [phone] Referral ID Status Reason Start Date Expiration Date Visits Re quested Visits Authorized [id number] Closed 09/19/2018 03/18/2019 1 1 Encounter Details Date Type Department Care Team (Late st Contact Info) Description 11/06/2018 11:00 AM GRIND OPERATOR OBGYN RADIOLOGY [facility] - TALENT SPECIALIST [address] [place] [address], [address] [place] [phone] Rober Cardona MD [address] [place] [address] [place] [phone] Ovarian mass ; Ovarian cyst, follicular [...] 11:33 AM CSTAssociated Order(s): US PELVIS COMPLETE [facility] TALENT SPECIALIST RADHA MACHINE STRAW HAT PRESSER PELVIC ULTRASOUND Pt. Name: Karen Medeiros : [...] Cul de Sac: Negative for free fluid Scrub Wheel Operator comments: Left ovarian complex mass, 1.7cm. Right ovarian anechoic masses, 1.4cm and 0.9cm. Color doppler used. Physician Interpretation: Left ovary with small corpus luteum, the right ovarian cysts are much smaller, IUD in place. Scrub Wheel Operator: Fidelina Pickard RDMS, RT(R) Images will be scanned into the record. Interpreting Physician: Lilian Cardona D OPERATOR documented in this encounter Plan of Treatment Not on file documented as of this encounter Procedures Procedure Name Priority Date/Time Associated Diagnosis Comments US PELVIS COMPLETE Routine 11/06/2018 11 :54 AM GRIND OPERATOR Ovarian cyst, follicular documented in this encounter Results * US PELVIS COMPLETE (11/06/2018 11:54 AM GRIND OPERATOR) Anatomical Region Laterality Modality Pelvis Ultrasound Narrative 11/06/2018 11:54 AM GRIND OPERATOR Rober Cardona MD ? 11/06/2018 11:54 AM [facility] TALENT SPECIALIST RADHA MACHINE STRAW HAT PRESSER PELVIC ULTRASOUND Pt. Name: Karen Medeiros : [...] Cul de Sac: Negative for free fluid Scrub Wheel Operator comments: Left ovarian complex mass, 1.7cm. Right ovarian anechoic masses, 1.4cm and 0.9cm. Color doppler used. Physician Interpretation: ?? Left ovary with small corpus luteum, the right ovarian cysts are much smaller, ??IUD in place. ?? Scrub Wheel Operator: ??Fidelina Pickard, BEAMS, RT(R) Images will be scanned into the record. Interpreting Physician: Lilian Cardona ? Rober Cardona MD ORDERABLES documented in this encounter Visit Diagnoses Diagnosis Ovarian mass- Primary Unspecified noninflammatory disorder of ovary, fallopian tube, and broad ligament Ovarian cyst, follicular Follicular cyst of ovary documented in this encounter Care Teams Extrusion Utility Worker Relationship Specialty Start Date End Date Jesus Alberto Smith MD [address] [place] [address] PCP - General Internal Medicine 08/30/16 Rober Cardona MD [address] [place] [address] [address] [place] [phone] Pot Feeder Obstetrics and Gynecology 08/27/16 documented as of this encounter
--- OUTSIDE RECORDS SUMMARY | 2024-10-06 11:15 | XMS_ITS | Encounter Summary ---
Author Organization [facility] Address [address] [place] [address] Care Team Providers Care Flatware Maker Name Role Phone Unavailable Primary Care Provider Unavailabl e Encounter Details Date Type Department Care Team (Late st Contact Info) Description 08/26/2005 Orders Only [facility] [address] [place] [address] ProviderInés MD Social History Tobacco Use Types [...] MICRO EXAM VAMSHI 08/26/2005 12 :00 AM WASTEWATER TREATMENT PLANT ATTENDANT documented in this encounter Results * GROSS + MICRO EXAM (08/26/2005 12:00 AM WASTEWATER TREATMENT PLANT ATTENDANT) Result CASE NUMBER [id number] Comment: ORDERING PHYSICIAN ??BROOK[place] BUTT SPECIMEN TYPE [...] ??The specimen weighs in total 2 grams. ??Network Engineer Administrator sections are submitted in cassettes A and B. MS saenz Microscopic Exam ? Micro sections reveals primarily hemorrhagic and necrotic decidua with scattered immature chorionic villi and fragments of gestational type endometrium. ?? tissue is not present. GM/bk Diagnosis ? I. ?Products of conception -- ?Products of conception. GM/bk Medical Manager ? bk Pathologist ?Odilia Grey M.D. Snomed. ?08/28/2005 0922 <1> CPT code ? 94991 MISCELLANEOUS SAMPLE S / Unknown 08/26/2005 08/27/2005 7:40 AM WASTEWATER TREATMENT PLANT ATTENDANT Historical Provider LAB - PATHOLOGY/C YTOLOGY ORDERABLES documented in this encounter Visit Diagnoses Not on filedocumented in this encounter
--- OUTSIDE RECORDS SUMMARY | 2024-10-06 11:15 | XMS_ITS | Patient Health Summary ---
Author Organization [facility] Address [address] [facility] [place] [address] Care Team Providers Care Telemarketing Fundraiser Name Role Phone Rober Butt MD Unavailable [phone] Jesus Alberto Smith MD Primary Care Provider Unavailabl e Note from [facility],non-owned Affiliates and Associated Physician Practices is amultiple site organization consisting of ambulatory clinics and hospital sitesin [place], [place], [place] and [place]. This disclosure is being madepursuant to the Care Everywhere program and may not contain all information available regarding this patient. Last updated 18.[facility] Allergies * Ibuprofen(Rash) -Medium Criticality [...] Comments Blood Pressure 110/72 11/21/2020 1:44 PM GROUP WORK PROGRAM DIRECTOR Pulse 77 12/05/2019 10:30 AM GROUP WORK PROGRAM DIRECTOR Temperature 37.2 ??C (99 ??F) 12/05/2019 10:30 AM GROUP WORK PROGRAM DIRECTOR Respiratory Rate 15 12/05/2019 10:30 AM GROUP WORK PROGRAM DIRECTOR Oxygen Saturation 99% 12/05/2019 10:30 AM GROUP WORK PROGRAM DIRECTOR Inhaled Oxygen Concentration - - Weight 54.2 kg (119 lb 8 oz) 11/21/2020 1:44 PM GROUP WORK PROGRAM DIRECTOR Height 157.5 cm (5' 2 ) 11/21/2020 1:44 PM GROUP WORK PROGRAM DIRECTOR Body Mass Index 21.86 11/21/2020 1:44 PM GROUP WORK PROGRAM DIRECTOR Procedures * PAP IG LB+HPV APTIMA(Performed 11/21/2020) [...] PAP IG LB+HPV APTIMA (11/21/2020 3:05 PM GROUP WORK PROGRAM DIRECTOR) Diagnosis [facility] ACCOUNT BILL Comment: NEGATIVE FOR INTRAEPITHELIAL LESION OR MALIGNANCY. THIS SPECIMEN WAS RESCREENED PART OF OUR CURING PRESS MAINTAINER PROGRAM. Specimen Adequacy [facility] ACCOUNT BILL Comment:Satisfactory for elena luation. No endocervical component is identified. Clinician Provided ICD10 [facility] ACCOUNT BILL Comment: Z01.419 Z97.5 Performed by [facility] ACCOUNT BILL Comment:Jill Mallory Financial Operations Consultant ([facility]) QC Reviewed by [facility] ACCOUNT BILL Comment:Xiomara Jean ytotechnologist ([facility]) Comment . [facility] ACCOUNT BILL Note [facility] [...] UTERINE CERVIX / Unknown 11/21/2020 3:05 PM GROUP WORK PROGRAM DIRECTOR 11/21/2020 Narrative [facility] ACCOUNT BILL - 11/27/2020 1:08 PM GROUP WORK PROGRAM DIRECTOR Source.............Cervix No. of containers..01 ThinPrep Vial Resulting Agency Comment Lab Testing performed at: [address] ??[place] Lakia[place]ica [id number] Rober Butt MD LAB - PATHOLOGY/CYTO LOGY ORDERABLES [facility] ACCOUNT BILL [address] [place] [address] * (ABNORMAL) INFLUENZA A+B - POINT OF CARE (AMB) (12/05/2019) Influenza A Antigen Rapid Positive(A) Negative Influenza B Antigen Rapid Negative Negative Influenza Internal Control present NEGATIVE - POSITIVE Influenza Lot Number [id number] Influenza Expiration Date 09/10/2021 Other NASOPHARYNGEAL SWAB / Unknown 12/05/2019 Ramandeep [place]aña DISTRICT GAUGER-DIAL BUFFER LAB - POINT OF CARE ORDERABLES * US PELVIS COMPLETE (11/06/2018 11:54 AM GROUP WORK PROGRAM DIRECTOR) Only the most recent of2 resultswithin the time period is included. Anatomical Region Laterality Modality Pelvis Ultrasound Narrative 11/06/2018 11:54 AM GROUP WORK PROGRAM DIRECTOR Rober Butt MD ? 11/06/2018 11:54 AM [facility] LEADER PELVIC ULTRASOUND Pt. Name: Karen Medeiros : [...] Cul de Sac: Negative for free fluid Medical Staff Manager comments: Left ovarian complex mass, 1.7cm. Right ovarian anechoic masses, 1.4cm and 0.9cm. Color doppler used. Physician Interpretation: ?? Left ovary with small corpus luteum, the right ovarian cysts are much smaller, ??IUD in place. ?? Medical Staff Manager: ??Fidelina Pickard RDMS, RT(R) Images will be scanned into the record. Interpreting Physician: Lilian Butt ? Rober Butt MD US ORDERABLES * PAP IGP CERVICAL CANCER SCREENING (11/06/2018 11:49 AM GROUP WORK PROGRAM DIRECTOR) Only the most recent of2 resultswithin the time period is included. Age Gdln ACOG Testing 30-65 [facility] INSURANCE BILL PART OF UTERINE CERVIX / Unknown 11/06/2018 11:49 AM GROUP WORK PROGRAM DIRECTOR 11/07/2018 Narrative [facility] INSURANCE BILL - 11/08/2018 5:10 PM GROUP WORK PROGRAM DIRECTOR No. of containers..01 ThinPrep Vial Resulting Agency Comment [facility] ??[place] CHEN [phone] Rober Butt MD LAB - PATHOLOGY/CYTO LOGY ORDERABLES [facility] INSURANCE BILL [address] [place] [address] * PAP IG LB+HPV HR RFLX 16,18 (11/06/2018 11:49 AM GROUP WORK PROGRAM DIRECTOR) Only the most recent of2 resultswithin the time period is included. Diagnosis [facility] INSURANCE BILL Comment:NEGATIVE FOR INTRAEP ITHELIAL LESION OR MALIGNANCY. Specimen Adequacy [facility] INSURANCE BILL Comment: Satisfactory for evaluation. ??Endocervical and/or squamous metaplastic cells (endocervical component) are present. Clinician Provided ICD10 [facility] INSURANCE BILL Comment: R10.2 N83.00 Z01.419 Performed by [facility] INSURANCE BILL Comment:Genaro Terrell isory Financial Operations Consultant (ASCP) Comment . [facility] INSURANCE BILL Note [...] without differentiation. ?. 11/06/2018 11:4 9 AM GROUP WORK PROGRAM DIRECTOR 11/07/2018 Narrative [facility] INSURANCE BILL - 11/08/2018 5:10 PM GROUP WORK PROGRAM DIRECTOR No. of containers..01 ThinPrep Vial Resulting Agency Comment [facility] [place] [address] [place] ??[place] [phone] Rober Butt MD LAB - PATHOLOGY/CYTO LOGY ORDERABLES [facility] INSURANCE BILL [address] [place] [address] * MAMMOGRAPHY ORDER (11/19/2016) Anatomical Region Laterality Modality Mammography Rober Butt MD MAMMO ORDERABLES * GROSS + MICRO EXAM (08/26/2005 12:00 AM GROUP WORK PROGRAM DIRECTOR) Result CASE NUMBER [id number] Comment: ORDERING PHYSICIAN ??ROBER BUTT SPECIMEN TYPE [...] ??The specimen weighs in total 2 grams. ??Ethnoarchaeology Professor sections are submitted in cassettes A and B. MS saenz Microscopic Exam ? Micro sections reveals primarily hemorrhagic and necrotic decidua with scattered immature chorionic villi and fragments of gestational type endometrium. ?? tissue is not present. GM/bk Diagnosis ? I. ?Products of conception -- ?Products of conception. GM/bk Rn Perioperative ? bk Pathologist ?Odilia Grey M.D. Snomed. ?08/28/2005 0922 <1> CPT code ? 82907 MISCELLANEOUS SAMPLE S / Unknown 08/26/2005 08/27/2005 7:40 AM GROUP WORK PROGRAM DIRECTOR Historical Provider LAB - PATHOLOGY/C YTOLOGY ORDERABLES Care Teams Telemarketing Fundraiser Relationship Specialty Start Date End Date Jesus Alberto Smith MD [address] [place] [address] PCP - General Internal Medicine 08/30/16 Rober Butt MD [address] [place] [phone] Welder Obstetrics and Gynecology 08/27/16
--- OUTSIDE RECORDS SUMMARY | 2024-10-06 11:15 | XMS_ITS | Encounter Summary ---
Author Organization [facility] Address [address] [place] [address] Care Team Providers Care Bus Steward Name Role Phone Rober Cardona MD Unavailable [phone] Jesus Alberto Smith MD Primary Care Provider Unavailabl e Reason for Visit * Reason Onset Date Comments Follow-up 12/07/2019 Encounter Details Date Type Department Care Team (Late st Contact Info) Description 12/07/2019 Telephone [facility] [address] [place] [address] Hoa Stanley APRN-CNP [address] [place] [address] Follow-up Social History Tobacco Use [...] the Tamiflu CANDICE Goodson 12/07/2019 1:49 PM EL MECHANIC APPRENTICE documented in this encounter Plan of Treatment Not on file documented as of this encounter Visit Diagnoses Not on filedocumented in this encounter Care Teams Bus Steward Relationship Specialty Start Date End Date Jesus Alberto Smith MD [address] [place] [address] PCP - General Internal Medicine 08/30/16 Rober Cardona MD [address] [place] [address] Armature Balancer Obstetrics and Gynecology 08/27/16 documented as of this encounter
--- OUTSIDE RECORDS SUMMARY | 2024-10-06 11:15 | XMS_ITS | Encounter Summary ---
Author Organization [facility] Address [address] [facility] [place] [address] Care Team Providers Care Blood Or Blood Bank Technician Name Role Phone Rober Cardona MD Unavailable [phone] Jesus Alberto Smith MD Primary Care Provider Unavailabl e Reason for Referral * Radiology Services (Routine) - Closed Specialty Diagnoses / Procedures Referred By Contac t Referred To Contact Ultrasound Diagnoses Ovarian cyst, follicular Procedures US PELVIS COMPLETE Rober Cardona MD [address] [place] [address] [place] [address] Referral ID Status Reason Start Date Expiration Date Visits Re quested Visits Authorized [id number] Closed 11/06/2018 05/05/2019 1 1 NFORMATICS SCIENTIST Encounter Details Date Type Department Care Team (Late st Contact Info) Description 11/06/2018 Orders Only [facility] - BED MACHINE OPERATOR [address] [place] [address], [address] [place] [address] Rober Cardona MD [address] [place] [address] [place] [address] Ovarian cyst, follicular Social History Tobacco [...] * US PELVIS COMPLETE (11/06/2018 11:54 AM BIOINFORMATICS SCIENTIST) Anatomical Region Laterality Modality Pelvis Ultrasound Narrative 11/06/2018 11:54 AM BIOINFORMATICS SCIENTIST Rober Cardona MD ? 11/06/2018 11:54 AM [facility] BED MACHINE OPERATOR RAD[address] CRIMINALIST PELVIC ULTRASOUND Pt. Name: Karen Medeiros : [...] Cul de Sac: Negative for free fluid Program Director Cable Television comments: Left ovarian complex mass, 1.7cm. Right ovarian anechoic masses, 1.4cm and 0.9cm. Color doppler used. Physician Interpretation: ?? Left ovary with small corpus luteum, the right ovarian cysts are much smaller, ??IUD in place. ?? Program Director [employer] Television: ??Fidelina Pickard RDIA, RT(R) Images will be scanned into the record. Interpreting Physician: Lilian Cardona ? Rober Cardona MD US ORDERABLES documented in this encounter Visit Diagnoses Diagnosis Ovarian mass- Primary Unspecified noninflammatory disorder of ovary, fallopian tube, and broad ligament Ovarian cyst, follicular Follicular cyst of ovary Ovarian cyst, follicular- Primary Follicular cyst of ovary documented in this encounter Care Teams Blood Or Blood Bank Technician Relationship Specialty Start Date End Date Jesus Alberto Smith MD [address] [place] [phone] PCP - General Internal Medicine 08/30/16 Rober Cardona MD [address] [facility] [address] [place] [address] Hunting Sales Associate Obstetrics and Gynecology 08/27/16 documented as of this encounter
--- OUTSIDE RECORDS SUMMARY | 2024-10-06 11:15 | XMS_ITS | Referral Summary ---
Author Organization [facility] Address [address] [place] [address] Care Team Providers Care Marble Helper Name Role Phone Rober Cardona MD Unavailable [phone] Jesus Alberto Smith MD Primary Care Provider Unavailabl e Source Comments [facility],non-owned Affiliates and Associated Physician Practices is amultiple site organization consisting of ambulatory clinics and hospital sitesin [place], [place], [place] and [place]. This disclosure is being madepursuant to the Care Everywhere program and may not contain all information available regarding this patient. Last updated 18.[facility] Allergies Active Allergy Reactions Criticality Noted [...] Comments Blood Pressure 110/72 11/21/2020 1:44 PM BEHAVIORAL CONSULTANT Pulse 77 12/05/2019 10:30 AM BEHAVIORAL CONSULTANT Temperature 37.2 ??C (99 ??F) 12/05/2019 10:30 AM BEHAVIORAL CONSULTANT Respiratory Rate 15 12/05/2019 10:30 AM BEHAVIORAL CONSULTANT Oxygen Saturation 99% 12/05/2019 10:30 AM BEHAVIORAL CONSULTANT Inhaled Oxygen Concentration - - Weight 54.2 kg (119 lb 8 oz) 11/21/2020 1:44 PM BEHAVIORAL CONSULTANT Height 157.5 cm (5' 2 ) 11/21/2020 1:44 PM BEHAVIORAL CONSULTANT Body Mass Index 21.86 11/21/2020 1:44 PM BEHAVIORAL CONSULTANT Plan of Treatment Not on file Procedures Procedure Name Priority Date/Time Associated Diagnosis Comments PAP IG LB+HPV APTIMA Routine 11/21/2020 3:05 PM BEHAVIORAL CONSULTANT Well woman exam with routine gynecological exam MAMMOGRAPHY ORDER Routine 11/19/2016 from Last 3 Months or Most Recently Relevant to Health Maintenance Results * PAP IG LB+HPV APTIMA (11/21/2020 3:05 PM BEHAVIORAL CONSULTANT) Diagnosis [facility] ACCOUNT BILL Comment: NEGATIVE FOR INTRAEPITHELIAL LESION OR MALIGNANCY. THIS SPECIMEN WAS RESCREENED PART OF OUR FILLING MACHINE OPERATOR PROGRAM. Specimen Adequacy [facility] ACCOUNT BILL Comment:Satisfactory for elena luation. No endocervical component is identified. Clinician Provided ICD10 [facility] ACCOUNT BILL Comment: Z01.419 Z97.5 Performed by [facility] ACCOUNT BILL Comment:Jill Mallory ervisory Splicing Technician (ASCP) QC Reviewed by [facility] ACCOUNT [...] UTERINE CERVIX / Unknown 11/21/2020 3:05 PM BEHAVIORAL CONSULTANT 11/21/2020 Narrative [facility] ACCOUNT BILL - 11/27/2020 1:08 PM BEHAVIORAL CONSULTANT Source.............Cervix No. of containers..01 ThinPrep Vial Resulting Agency Comment Lab Testing performed at: [address] ??[facility] [id number] Rober Cardona MD LAB - PATHOLOGY/CYTO LOGY ORDERABLES [facility] ACCOUNT BILL [id number] [place] [address] * MAMMOGRAPHY ORDER (11/19/2016) Anatomical Region Laterality Modality Mammography Rober Cardona MD MAMMO ORDERABLES from Last 3 Months or Most Recently Relevant to Health Maintenance Care Teams Marble Helper Relationship Specialty Start Date End Date Jesus Alberto Smith MD [address] [place] [address] PCP - General Internal Medicine 08/30/16 Rober Cardona MD [address] [place] [id number] Clerical Manager Obstetrics and Gynecology 08/27/16
--- OUTSIDE RECORDS SUMMARY | 2024-10-06 11:16 | XMS_ITS | Encounter Summary ---
Author Organization [facility] Healthcare Address [address] [place] [address] Care Team Providers Care Traffic Expert Name Role Phone Kristen Mancera MD Unavailable Lewis Sunshine MD Unavailable [phone] Ana Pavon NP Primary Care Provider [phone] Reason for Visit * Reason Comments Cough [...] st Contact Info) Description 10/19/2023 11:00 AM MAINTAINER SEWER AND WATERWORKS Office Visit [facility] Medical Group Convenient Care at [address] [address] Kacey Koo PA [address] [place] [address] [address] [place], [place] [id number] Acute non-recurrent pansinusitis (Primary Dx); Exposure to [...] on file Legal Sex Female 10:19 PM MAINTAINER SEWER AND WATERWORKS Gender Identity Not on file Sexual Orientation Not on file documented as of this encounter Last Filed Vital Signs Vital Sign Reading Time Taken Comments Blood Pressure 110/72 10/19/2023 10:59 AM MAINTAINER SEWER AND WATERWORKS Pulse 83 10/19/2023 10:59 AM MAINTAINER SEWER AND WATERWORKS Temperature 36.6 ??C (97.8 ??F) 10/19/2023 10:[address] Respiratory Rate 16 10/19/2023 10:59 AM MAINTAINER SEWER AND WATERWORKS Oxygen Saturation 99% 10/19/2023 10:59 AM MAINTAINER SEWER AND WATERWORKS Inhaled Oxygen Concentration - - Weight 54.4 kg (120 lb) 10/19/2023 10:59 AM MAINTAINER SEWER AND WATERWORKS Height 157.5 cm (5' 2 ) 10/19/2023 10:59 AM MAINTAINER SEWER AND WATERWORKS Body Mass Index 21.95 10/19/2023 10:59 AM MAINTAINER SEWER AND WATERWORKS documented in this encounter Patient Instructions * Patient Instructions* Kacey Koo PA - 10/19/2023 11:00 AM MAINTAINER SEWER AND WATERWORKS -add zyrtec, flonase, and sudafed -12 hour generic sudafed from pharmacist -recommend holding antibiotic for a few days as you likely have a viral infection -if no improvement in 2-3 days you may start augmentin TAINER SEWER AND WATERWORKS TAINER SEWER AND WATERWORKS * Attachments The following attachments cannot be sent through Care Everywhere. * Influenza (Discharge Care) (Niuean) documented in this encounter Ordered Prescriptions Prescription [...] were not included. Subjective/Objective Patient ID: Karen Medeiors is a 53 y.o. female. Chief Complaint [...] David Gómez MD at 10/19/2023 3:44 PM MAINTAINER SEWER AND WATERWORKS TAINER SEWER AND WATERWORKS TAINER SEWER AND WATERWORKS documented in this encounter Plan of Treatment Not on file documented as of this encounter Procedures Procedure Name Priority Date/Time Associated Diagnosis Comments POC INFLUENZA A/B, COVID-19 ANTIGEN Routine 10/19/2023 11:15 AM MAINTAINER SEWER AND WATERWORKS Acute non-recurrent pansinusitis POCT RAPID STREP Routine 10/19/2023 11:1 0 AM MAINTAINER SEWER AND WATERWORKS Acute non-recurrent pansinusitis documented in this encounter Results * Throat culture Throat (10/19/2023 11:25 AM MAINTAINER SEWER AND WATERWORKS) Report Final Report: No growth of pathogens. JAG ARMSTRONG Comment:Testing performed by : [facility], [address] [facility] [place]., [address] Throat 10/19/2023 11:2 5 AM MAINTAINER SEWER AND WATERWORKS 10/19/2023 5:58 PM MAINTAINER SEWER AND WATERWORKS Narrative JAG ARMSTRONG - 10/20/2023 1:22 PM MAINTAINER SEWER AND WATERWORKS Testing performed by [facility] ([phone]). us Kacey RODRIGUES [facility] MICROBIOLOGY - [facility] AL ORDERABLES Final Result JAG ARMSTRONG [address] Department [place] [address] * (ABNORMAL) Influenza A/B, RSV, and COVID-19 PCR Nasopharyngeal (10/19/2023 11:25 AM MAINTAINER SEWER AND WATERWORKS) Pathologist [facility] [place] COVID-19 RNA Negative Negative [facility] Influenza A RNA Negative Negative [facility] Influenza B RNA Negative Negative [facility] RSV RNA Positive(A) Negative [facility] Comment: Interpretive data: Testing performed by [facility]. This test is performed using the [employer] Xpert Xpress CoV-2/Flu/RSV plus assay. This is a multiplex, real-time reverse transcriptase PCR assay intended for the qualitative detection of nucleic acid from SARS-CoV-2, influenza A, influenza B, and respiratory syncytial virus. This assay has been cleared by the [place] Food and Drug administration. The performance characteristics have been verified by the [facility]. ??Results must be considered in the clinical context, and a negative result does not rule out infection. Interpretive Data last revised 2023 Nasopharyngeal 10/19/2023 11 :25 AM MAINTAINER SEWER AND WATERWORKS 10/19/2023 2:30 PM MAINTAINER SEWER AND WATERWORKS Narrative [facility] - 10/19/2023 3:53 PM MAINTAINER SEWER AND WATERWORKS Is the Patient experiencing symptoms consistent with COVID?->Yes Date of Symptom Onset->10/12/23 Reason for testing?->Symptomatic Kacey RODRIGUES [facility] MICROBIOLOGY - GENER AL ORDERABLES Final Result JAG ARMSTRONG [address] Department [place] [address] * POC Influenza A/B, COVID-19 antigen (10/19/2023 11:15 AM MAINTAINER SEWER AND WATERWORKS) Influenza A Ag, POC Negative Negative [facility] Influenza B Ag, POC Negative Negative [facility] COVID-19 Ag POC Presumptive Negative Presumptive Negative, Invalid [facility] Nasal 10/19/2023 11:1 5 AM MAINTAINER SEWER AND WATERWORKS us Kacey RODRIGUES POINT OF CARE TEST ORDER ANALI Final Result [facility] [address] [place] [address], [facility] * POCT rapid strep A (10/19/2023 11:10 AM MAINTAINER SEWER AND WATERWORKS) Rapid Strep A, POC Negative Negative Swab 10/19/2023 11:1 0 AM MAINTAINER SEWER AND WATERWORKS Kacey RODRIGUES POINT OF CARE TEST ORDER ANALI Final Result documented in this encounter Visit Diagnoses Diagnosis Acute non-recurrent pansinusitis- Primary Exposure to influenza Contact with or exposure to other viral diseases Acute non-recurrent pansinusitis documented in this encounter Additional Health Concerns Infection Onset Date Last Indicated Resolved Time COVID: Suspected 10/19/2023 10/19/2023 10/19/2023 11:26 AM MAINTAINER SEWER AND WATERWORKS documented as of this encounter Care Teams Traffic Expert Relationship Specialty Start Date End Date Ana Pavon NP [address] [place] [address] PCP - General Family Medicine 06/09/23 Kristen Mancera MD Medical Oncologist/Lumber Yard Worker Medical Oncology 11/21/20 Lewis Sunshine MD [address] [address] Surgeon Orthopedic Surgery 01/05/23 documented as of this encounter
--- OUTSIDE RECORDS SUMMARY | 2024-10-06 11:16 | XMS_ITS | Encounter Summary ---
Author Organization [facility] Healthcare Address [address] [place] [address] Care Team Providers Care Fabric Machine Operator Name Role Phone Kristen Mancera MD Unavailable Lewis Sunshine MD Unavailable [phone] Ana Pavon NP Primary Care Provider [phone] Reason for Visit * Diagnostic Imaging (Routine) - Closed Specialty Diagnoses / Procedures Referred By Wilfred stewart Referred To Contact Diagnoses Encounter for screening mammogram for malignant neoplasm of breast Procedures Screening Mammogram Bilateral w Papo w Implants Screening Mammogram Bilateral W Papo Ana Pavon, DERICK [address] [facility] [address] [place] [address] Phone: tel: fax: External Order Referral ID Status Reason Start Date Expiration Date Visits Re quested Visits Authorized [id number] Closed 06/09/2023 07/08/2024 1 1 Encounter Details Date Type Department Care Team (Latest Contact Info) Description 04/06/2024 10:56 AM CDT - 04/06/2024 11:59 PM CDT Hospital Encounter [facility] [address] [place] [id number] Encounter for screening mammogram for malignant [...] on file Legal Sex Female 10:19 PM ETCHER APPRENTICE Gender Identity Not on file Sexual Orientation Not on file documented as of this encounter Medications at Time of Discharge cream base no.52, bulk, cream Place on the skin Testosterone multivitamin capsuleIndication s:Vitamin Deficiency Prevention Take 1 capsule by mouth hospice social worker before breakfast progesterone (PROMETRIUM) 100 mg capsule [...] age 40, based on guidelines of the [place] [employer] (ACR Practice Parameter for the Performance of Screening and Diagnostic Mammography) and [place] [employer]. For women [...] breast documented in this encounter Care Teams Fabric Machine Operator Relationship Specialty Start Date End Date Ana Pavon NP [address] [facility] [address] [place] [address] PCP - General Family Medicine 06/09/23 Kristen Mancera MD Medical Oncologist/Storeroom Supervisor Medical Oncology 11/21/20 Lewis Sunshine MD [address] [address] Surgeon Orthopedic Surgery 01/05/23 documented as of this encounter
--- OUTSIDE RECORDS SUMMARY | 2024-10-06 11:16 | XMS_ITS | Encounter Summary ---
Author Organization [facility] Healthcare Address [address] [place] [address] Care Team Providers Care Cartridge Belt Puncher Name Role Phone Kristen Mancera MD Unavailable Lewis Sunshine MD Unavailable [phone] Ana Pavon NP Primary Care Provider [phone] Reason for Visit * Reason Comments Annual Exam Pt states for annual exam. Pt has no current complaints. Encounter Details Date Type Department Care Team (Latest Contact Info) Description 06/07/2024 8:30 AM CDT Office Visit [facility] Medical Group Primary Care at [address] [address] Ana Pavon NP [address] [place] [address] [address] [place] [address] Annual physical exam (Primary Dx); [...] on file Legal Sex Female 10:19 PM ULTRASONIC HAND SOLDERER Gender Identity Not on file Sexual Orientation [...] multivitamin capsule Take 1 capsule by mouth camera operator before breakfast progesterone (PROMETRIUM) 100 mg capsule [...] or bloody stools. No urinary tract symptoms. MOLD REPAIRER ROS: no breast pain or new or enlarging lumps on self exam. No neurological complaints. Past Medical History: Diagnosis Date Anxiety 1999 Breast pain, left 04/09/2022 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CMS/HCC) ([facility]) 12/31/2022 Lumbar disc herniation with radiculopathy 01/03/2023 Added automatically from request for surgery [id number] Neutropenia ([facility]) 05/06/2017 Past Surgical History: Procedure Laterality Date [...] Anesthesia problems Neg Hx No colon, breast, book publisher cancer cmt 09/12/23 Social History Tobacco Use [...] 06/07/2024 documented in this encounter Care Teams Cartridge Belt Puncher Relationship Specialty Start Date End Date Ana Pavon NP [address] [facility] [address] [place] [address] PCP - General Family Medicine 06/09/23 Kristen Mancera MD Medical Oncologist/B2B Appointment Setter Medical Oncology 11/21/20 Lewis Sunshine MD [address] [facility] [address] [place] [address] Surgeon Orthopedic Surgery 01/05/23 documented as of this encounter
--- OUTSIDE RECORDS SUMMARY | 2024-10-06 11:16 | XMS_ITS | Encounter Summary ---
Author Organization [facility] Healthcare Address [address] [place] [address] Care Team Providers Care Dressage Judge Name Role Phone Kristen Mancera MD Unavailable Lewis Sunshine MD Unavailable [phone] Ana Pavon NP Primary Care Provider [phone] Reason for Visit * Reason Comments IUD Removal Encounter Details Date Type Department Care Team (Late st Contact Info) Description 02/13/2024 11:15 AM CDT Procedure visit [facility] Medical Group Women's Health Care at [address] [address] Susan Anderson MD [address] [place] [address] IUD contraception (Primary Dx); Hormone replacement [...] on file Legal Sex Female 10:19 PM PROJECT CONTROL OFFICER Gender Identity Not on file Sexual [...] from the original note were not included. Check Processor Visit IUD Removal Subjective: Karen Medeiros is [...] Exam Vitals reviewed. Exam conducted with a senior bi architect present. Constitutional: Appearance: Normal appearance. She is [...] (HRT) documented in this encounter Care Teams Dressage Judge Relationship Specialty Start Date End Date Ana Pavon NP [address] [facility] [address] [place] [address] PCP - General Family Medicine 06/09/23 Kristen Mancera MD Medical Oncologist/Pastoral Counselor Medical Oncology 11/21/20 Lewis Sunshine MD [address] [facility] [address] [place] [address] Surgeon Orthopedic Surgery 01/05/23 documented as of this encounter
--- OUTSIDE RECORDS SUMMARY | 2024-10-06 11:16 | XMS_ITS | Continuity of Care Document ---
Author Organization [facility] Address [address] [place] [address] [address] [place] [address] Phone Care Team Providers Care Corset Maker Name Role Phone Li OD, Altaf Unavailable Unavailable Advance Directives Directive Yes / No Effective Date File Name No Information Encounters Encounter Description Practice Location Reason(s) For Visit Diagnoses Date Provider Providers Copied on Encounter [facility], [id number] [place] [address] [address], [place], [place], [id number], [place] tel:[phone] [facility] [place] No Information Giovanni- [phone] Li OD Altaf. [address] [facility] , [address], [place], [address], [place]. tel:[phone] Family History Family Member Type Diagnosis Age At Onset No Information Payers Payer name Insurance type Covered green party ID Authoriza tion(s) No Information Social History [...]
--- OUTSIDE RECORDS SUMMARY | 2024-10-06 11:16 | XMS_ITS | Encounter Summary ---
Author Organization [facility] Healthcare Address [address] [place] [address] Care Team Providers Care String Top Sealer Name Role Phone Kristen Mancera MD Unavailable Lewis Sunshine MD Unavailable [phone] Ana Pavon NP Primary Care Provider [phone] Reason for Visit * Reason Comments UTI follow up Encounter Details Date Type Department Care Team (Late st Contact Info) Description 11/10/2023 2:00 PM COMMERCIAL ESCROW OFFICER Telemedicine [facility] Medical Group Primary Care at [address] [address] Ana Pavon NP [address] [place] [address] [address] [place] [address] Urinary tract infection without hematuria, [...] on file Legal Sex Female 10:19 PM COMMERCIAL ESCROW OFFICER Gender Identity Not on file Sexual [...] which took place via Real-time video connection ([employer], [employer] or similar). During the visit, I waslocated [place] and the patient was located [place] The session started at 1400 and ended [...] normal. Behavior: Behavior normal. Ana Pavon NP ERCIAL ESCROW OFFICER documented in this encounter Plan of Treatment Scheduled Orders Name Type Priority Associated Diagnoses Orde r Schedule Urinalysis reflex to microscopic and culture Urine, bladder Microbiology Routine Urinary tract infection without hematuria, site unspecified Expected: 11/10/2023, Expires: 11/10/2024 documented as of this encounter Visit Diagnoses Diagnosis Urinary tract infection without hematuria, site unspecified- Primary documented in this encounter Care Teams String Top Sealer Relationship Specialty Start Date End Date Ana Pavon NP [address] [facility] [address] [place] [address] PCP - General Family Medicine 06/09/23 Kristen Mancera MD Medical Oncologist/Nephrologist Medical Oncology 11/21/20 Lewis Sunshine MD [address] [address] Surgeon Orthopedic Surgery 01/05/23 documented as of this encounter
--- OUTSIDE RECORDS SUMMARY | 2024-10-06 11:16 | XMS_ITS | Encounter Summary ---
Author Organization [facility] Healthcare Address [address] [place] [address] Care Team Providers Care Range Feeder Name Role Phone Kristen Mancera MD Unavailable Lewis Sunshine MD Unavailable [phone] Ana Pavon NP Primary Care Provider [phone] Reason for Visit * Reason Comments New [facility]. States that her last annual WWE was 11/21/2020 Encounter Details Date Type Department Care Team (Late st Contact Info) Description 09/12/2023 2:30 PM ICER MACHINE Office Visit [facility] Medical Group Women's Health Care at [address] [address] Susan Anderson MD [address] [place] [address] Well woman exam (Primary Dx); IUD [...] on file Legal Sex Female 10:19 PM ICER MACHINE Gender Identity Not on file Sexual Orientation Not on file documented as of this encounter Last Filed Vital Signs Vital Sign Reading Time Taken Comments Blood Pressure 120/78 09/12/2023 3:39 PM ICER MACHINE Pulse 75 09/12/2023 3:39 PM ICER MACHINE Temperature - - Respiratory Rate - - Oxygen Saturation - - Inhaled Oxygen Concentration - - Weight 54.7 kg (120 lb 9.6 oz) 09/12/2023 3:39 P M ICER MACHINE Height 157.5 cm (5' 2 ) 09/12/2023 3:39 PM ICER MACHINE Body Mass Index 22.06 09/12/2023 3:39 PM ICER MACHINE documented in this encounter Progress Notes * [...] Exam Vitals reviewed. Exam conducted with a rerecording mixer present. Constitutional: Appearance: Normal appearance. She is [...] iud removal. . Susan Anderson MD 09/12/2023 MACHINE documented in this encounter Miscellaneous Notes * [...] testosterone. Will check cmp and lp yearly. MACHINE MACHINE * Assessment & Plan Note - Susan Anderson MD - 09/12/2023 3:53 PM CSTAssociated Problem(s): IUD contraception Due out 2023 MACHINE * Assessment & Plan Note - Susan Anderson MD - 09/12/2023 3:52 PM CSTAssociated Problem(s): Well woman exam Pap done. RTO 12m. I will send the results to the portal. If she has not heard in a week, to call the office. MACHINE documented in this encounter Plan of Treatment Not on file documented as of this encounter Procedures Procedure Name Priority Date/Time Associated Diagnosis Comments PAP AND HPV, REFLEX TO HPV GENOTYPES Routine 09/12/2023 4:52 PM ICER MACHINE Well woman exam documented in this encounter Results * Pap and HPV, reflex to HPV Genotypes (09/12/2023 4:52 PM ICER MACHINE) CLINICAL INFORMATION: [facility] Comment:Routine exam LMP [facility] Comment:09/12/[address] [facility] Comment:NONE GIVEN Prev. Bx [facility] Comment:NONE GIVEN SOURCE: [facility] Comment:Cervix, Endocervix Pap, specimen adequacy [facility] Comment: Satisfactory for evaluation. Endocervical/transformation zone component present. HPV interp [facility] Comment: Cytology Results: Negative for intraepithelial lesion or malignancy. COMMENTS [facility] Comment: This case could not be evaluated with computer assisted technology. The slide was manually screened according to routine procedures. On Site Manager Que [facility] Comment: YQ, CT(ASCP) CT screening location: [place] [address] [address] JULIO CESAR [place] [address] [facility] Comment: EXPLANATORY NOTE: The Pap is a [...] High Risk E6/E7 Not Detected NOT DETECTED [facility] Comment: Not Detected High Risk HPV types (16,18,31,33,35,39,45,51,52, 56,58,59,66,68) were not detected. Other HPV types which cause anogenital lesions may be present. The significance of the other types of HPV in malignant processes has not been established. Methodology: Real Time PCR ? Thin prep 09/12/2023 4:52 PM ICER MACHINE 09/13/2023 4:30 AM ICER MACHINE us Susan Anderson MD LAB CYTOLOGY ORDERA BLES Final Result [facility] [address] [address] JULIO CES[place] [address] [facility] [address] [facility] [address] [place] documented in this encounter Visit Diagnoses Diagnosis [...] daily added in this encounter Care Teams Range Feeder Relationship Specialty Start Date End Date Ana Pavon NP [address] [facility] [address] [place] [address] PCP - General Family Medicine 06/09/23 Kristen Mancera MD Medical Oncologist/Geoscience Laboratory Technician Medical Oncology 11/21/20 Lewis Sunshine MD [address] [facility] [address] [place] [address] Surgeon Orthopedic Surgery 01/05/23 documented as of this encounter
--- OUTSIDE RECORDS SUMMARY | 2024-10-06 11:16 | XMS_ITS | Clinical Summary ---
Author Organization [facility] Address [address] [place] [address]. [place], [place] [address] [place] [address] Care Team Providers Care Carding Utility Tender Name Role Phone Unavailable Primary Care Provider [...]
--- OUTSIDE RECORDS SUMMARY | 2024-10-06 11:16 | XMS_ITS | Referral Summary ---
Author Organization [facility] Address [address] [place] [address] Care Team Providers Care Clinical Laboratory Manager Name Role Phone Kristen Mancera MD Unavailable Lewis Sunshine MD Unavailable [phone] Ana Pavon NP Primary Care Provider Allergies No known active allergies Medications levonorgestrel (MIRENA) IUDIndications:Ab normal Uterine Bleeding,Pregnanc y Contraception 1 each by intrauterine route once 02/23/20 14 Active multivitamin capsuleIndication s:Vitamin Deficiency Prevention Take 1 capsule by mouth plant specialist before breakfast Active progesterone (PROMETRIUM) 100 mg [...] have. Assessment & Plan (09/12/2023 3:52 PM PRE OWNED SALES MANAGER): Pap done. RTO 12m. 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 Other neutropenia ([facility]) 05/06/2017 IUD contraception 02/22/2014 Overview (12/20/2019): Overview: Mirena 02/22/14 MIRENA #2 02/27/19 Assessment & Plan (02/13/2024 11:39 AM CDT): Removed without difficulty Assessment & Plan (09/12/2023 3:53 PM PRE OWNED SALES MANAGER): Due out 2023 Resolved Problems Problem Noted Date Diagnosed Date Resolved Date Lumbar disc herniation with radiculopathy 01/03/2023 05/04/2023 Overview (01/03/2023): Added automatically from request for surgery [id number] 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[facility]) 12/31/2022 05/04/2023 Breast pain, [...] on file Legal Sex Female 10:19 PM PRE OWNED SALES MANAGER Gender Identity Not on file Sexual Orientation Not on file Last Filed Vital Signs Vital Sign Reading Time Taken Comments Blood Pressure 98/62 06/07/2024 8:37 AM CDT Pulse 80 06/07/2024 8:37 AM CDT Temperature 36.8 ??C (98.2 ??F) 06/07/2024 8:37 AM CD T Respiratory Rate 16 10/19/2023 10:59 AM PRE OWNED SALES MANAGER Oxygen Saturation 99% 10/19/2023 10:59 AM PRE OWNED SALES MANAGER Inhaled Oxygen Concentration - - Weight 50.8 [...] TO HPV GENOTYPES Routine 09/12/2023 4:52 PM PRE OWNED SALES MANAGER Well woman exam STOOL DNA ? COLOGUARD [...] age 40, based on guidelines of the [place] [employer] (ACR Practice Parameter for the Performance of Screening and Diagnostic Mammography) and [place] [employer] Obstetricians and Gynecologists. For women [...] either breast on mammogram. us Ana Pavon LIME KILN WORKER IMG MAMMO PROCEDURES Final Resul t * Pap and HPV, reflex to HPV Genotypes (09/12/2023 4:52 PM PRE OWNED SALES MANAGER) CLINICAL INFORMATION: [facility] Comment:Routine exam LMP [facility] Comment:09/12/[address] [facility] Comment:NONE GIVEN Prev. Bx [facility] Captual [facility] Comment:NONE GIVEN SOURCE: [facility] Comment:Cervix, Endocervix Pap, specimen adequacy [facility] Comment: Satisfactory for evaluation. Endocervical/transformation zone component present. HPV interp [facility] Comment: Cytology Results: Negative for intraepithelial lesion or malignancy. COMMENTS [facility] Comment: This case could not be evaluated with computer assisted technology. The slide was manually screened according to routine procedures. Organ Pipe Finisher [facility] Comment: YQ, CT(ASCP) CT screening location: [place] [address] [place] [address] Comment [facility] Captual [facility] Comment: EXPLANATORY NOTE: The Pap is [...] High Risk E6/E7 Not Detected NOT DETECTED [facility] /[facility] Comment: Not Detected High Risk HPV types (16,18,31,33,35,39,45,51,52, 56,58,59,66,68) were not detected. Other HPV types which cause anogenital lesions may be present. The significance of the other types of HPV in malignant processes has not been established. Methodology: Real Time PCR ? Thin prep 09/12/2023 4:52 PM PRE OWNED SALES MANAGER 09/13/2023 4:30 AM PRE OWNED SALES MANAGER Susan Anderson MD LAB CYTOLOGY ORDERA [facility] Final Result [facility] [address] [facility] [place] [address] [facility] [address] [address] * Stool DNA - Cologuard (05/05/2022 10:00 AM CDT) Stool DNA - Cologuard Negative Negative [facility] (CLIA #:[id number]) Comment: NEGATIVE TEST RESULT. A negative Cologuard [...] cancer. ??Following a negative Cologuard result, the [place] [employer] and U.S. Multi-Society Task Force screening guidelines recommend a Cologuard re-screening interval of 3 years. References: [place] [employer] Guideline for Colorectal Cancer Screening: https://www.cancer.org/cancer/ojtlc-xbbcnl-qejmqr/zmppzcsme-lkczgimpj-dvoagym/ac s-rec ommendations.html.; Doc DK, Shelley DAVILA, Shyam RemyK, Colorectal Cancer Screening: Recommendations for Physicians and Patients from the U.S. Multi-Society Task Force on Colorectal Cancer Screening , Am J Gastroenterology 2017; 112:0540-8534. TEST DESCRIPTION: Composite algorithmic analysis of stool [...] colonoscopy. (Aiden Bach, N Engl J Med 2014;370(14):2006-5966.) Cologuard may produce a false negative or false positive result (no colorectal cancer or precancerous polyp present at colonoscopy follow up). A negative Cologuard test result does not guarantee the absence of CRC or advanced adenoma (pre-cancer). The current Cologuard screening interval is every 3 years. ([place] [employer] and U.S. Multi-Society Task Force). Cologuard performance data in a 10,000 patient pivotal study using colonoscopy as the reference method can be accessed at the following location: www.[employer]way [employer].MIT CSHub/results. Additional description of the Cologuard test process, warnings and precautions can be found at www.cologuard.com. Stool 05/05/2022 10:0 0 AM CDT 05/06/2022 1:51 PM CDT us Kacey Gonzalez MD LAB BODY FLUIDS AND STOOL S ORDERABLES Final Result [facility] (CLIA #:[id number]) [place] [address] from Last 3 Months or Most Recently Relevant to Health Maintenance Insurance [employer]YE[employer] OOS [employer] Care Teams Clinical Laboratory Manager Relationship Specialty Start Date End Date Ana Pavon NP [address] [facility] [address] [place], [place] [id number] PCP - General Family Medicine 06/09/23 Kristen Mancera MD Medical Oncologist/Mentally Impaired Teacher Medical Oncology 11/21/20 Lewis Sunshine MD [address] [facility] [address] [place] [address] Surgeon Orthopedic Surgery 01/05/23
--- OUTSIDE RECORDS SUMMARY | 2024-10-06 11:16 | XMS_ITS | Continuity of Care Document ---
Author Organization [facility] Address [address] [place] [address] [address] [place] [address] Phone Care Team Providers Care Marine Habitat Resource Specialist Name Role Phone Jaleel QUINTERO, OTR/L, PATTITLuther Unavailable Alma vailable Procedures Procedure Date OT EVALUATION ORTHOTIC FITTING Hand Advance Directives Directive Yes / No Effective Date File Name No Information Encounters Encounter Description Practice Location Reason(s) For Visit Diagnoses Date Provider Providers Copied on Encounter [facility], [address] [place], [place] [address], [place], [place], [id number], [place] tel:[phone] [place] Pain in right handOther specified soft tissue disordersStiffne ss of right hand, not elsewhere classifiedMuscle weakness (generalized)Spr ain of metacarpophalang eal joint of unsp finger, subs 6 Jaleel Sloan. [address] [facility], [address], [place], [address], [place]. tel:[phone] Referring Provider: Morgan Beatty, [address], [place], [address]. tel:[phone] Family History Family Member Type Diagnosis Age At Onset No Information Payers Payer name Insurance type Covered constitution party ID Authorrasharda carole(s) [facility] [id number] [facility] 2016 Social History Type Description Quantity Date [...]
--- OUTSIDE RECORDS SUMMARY | 2024-10-06 11:16 | XMS_ITS | Encounter Summary ---
Author Organization [facility] Healthcare Address [address] [place] [address] Care Team Providers Care Fancy Needleworker Name Role Phone Kristen Mancera MD Unavailable Lewis [place] MD Unavailable [phone] Ana Pavon NP Primary Care Provider [phone] Encounter Details Date Type Department Care Team (Latest Contact Info) Description 10/19/2023 11:25 AM BODY SHOP TECHNICIAN - 10/19/2023 11:59 PM BODY SHOP TECHNICIAN Hospital Encounter [facility] [address] [place], [place] [id number] Acute non-recurrent pansinusitis Discharge Disposition: Discharge to [...] Legal Sex Female 10:19 PM BODY SHOP TECHNICIAN Gender Identity Not on file Sexual Orientation Not on file documented as of this encounter Medications at Time of Discharge cream base no.52, bulk, cream Place on the skin Testosterone levonorgestrel (MIRENA) IUDIndications:Abn ormal Uterine Bleeding, Contraception 1 each by intrauterine route once 02/22/2014 multivitamin capsuleIndications :Vitamin Deficiency Prevention Take 1 capsule by mouth curer acid drum before breakfast progesterone (PROMETRIUM) 100 mg capsule [...] AND COVID-19 PCR Routine 10/19/2023 11:25 AM BODY SHOP TECHNICIAN Acute non-recurrent pansinusitis THROAT CULTURE Routine 10/19/2023 11:25 AM BODY SHOP TECHNICIAN Acute non-recurrent pansinusitis documented in this encounter Results * (ABNORMAL) Influenza A/B, RSV, and COVID-19 PCR Nasopharyngeal (10/19/2023 11:25 AM BODY SHOP TECHNICIAN) COVID-19 RNA Negative Negative [facility] Influenza A RNA Negative Negative [facility] Influenza B RNA Negative Negative [facility] RSV RNA Positive(A) Negative [facility] Comment: Interpretive data: Testing performed by [facility]. This test is performed using the Start[employer] Xpert Xpress CoV-2/Flu/RSV plus assay. This is a multiplex, real-time reverse transcriptase PCR assay intended for the qualitative detection of nucleic acid from SARS-CoV-2, influenza A, influenza B, and respiratory syncytial virus. This assay has been cleared by the [place] Food and Drug administration. The performance characteristics have been verified by the [facility]. ??Results must be considered in the clinical context, and a negative result does not rule out infection. Interpretive Data last revised 2023 Nasopharyngeal 10/19/2023 11 :25 AM BODY SHOP TECHNICIAN 10/19/2023 2:30 PM BODY SHOP TECHNICIAN Narrative [facility] - 10/19/2023 3:53 PM BODY SHOP TECHNICIAN Is the Patient experiencing symptoms consistent with COVID?->Yes Date of Symptom Onset->10/12/23 Reason for testing?->Symptomatic Kacey RODRIGUES LAB MICROBIOLOGY - GENER AL ORDERABLES Final Result [facility] [address] [address] Department [place] [address] * Throat culture Throat (10/19/2023 11:25 AM BODY SHOP TECHNICIAN) Report Final Report: No growth of pathogens. JAG Comment:Testing performed by : [facility], [address] [facility], [place]., [address] Throat 10/19/2023 11:2 5 AM BODY SHOP TECHNICIAN 10/19/2023 5:58 PM BODY SHOP TECHNICIAN Narrative [facility] - 10/20/2023 1:22 PM BODY SHOP TECHNICIAN Testing performed by [facility] ([phone]). us Kacey RODRIGUES LAB MICROBIOLOGY - GENER AL ORDERABLES Final Result [facility] [id number] Department [place] [address] documented in this encounter Visit Diagnoses Diagnosis Acute non-recurrent pansinusitis documented in this encounter Additional Health Concerns Infection Onset Date Last Indicated Resolved Time COVID: Suspected 10/19/2023 10/19/2023 10/19/2023 11:26 AM BODY SHOP TECHNICIAN COVID: Suspected 10/19/2023 10/19/2023 10/19/2023 3:55 PM BODY SHOP TECHNICIAN RSV, droplet 10/19/2023 10/19/2023 10/26/2023 3:05 AM BODY SHOP TECHNICIAN documented as of this encounter Care Teams Fancy Needleworker Relationship Specialty Start Date End Date Ana Pavon NP [address] [facility] [address] [place] [address] PCP - General Family Medicine 06/09/23 Kristen Mancera MD Medical Oncologist/Curtain Hemmer Automatic Medical Oncology 11/21/20 Lewis [place] MD [address] [address] Surgeon Orthopedic Surgery 01/05/23 documented as of this encounter
--- OUTSIDE RECORDS SUMMARY | 2024-10-06 11:16 | XMS_ITS | Encounter Summary ---
Author Organization [facility] Healthcare Address [address] [place] [address] Care Team Providers Care Development Geologist Name Role Phone Kristen Mancera MD Unavailable Lewis [place] MD Unavailable [phone] Ana Pavon NP Primary Care Provider [phone] Encounter Details Date Type Department Care Team (Latest Contact Info) Description 08/26/2023 3:25 PM FEED INSPECTION SUPERVISOR - 08/26/2023 11:59 PM FEED INSPECTION SUPERVISOR Hospital Encounter [facility] Advanced Medicine [facility] ([facility]) [address] [place] [phone] Discharge Disposition: Discharge to home or self [...] on file Legal Sex Female 10:19 PM FEED INSPECTION SUPERVISOR Gender Identity Not on file Sexual Orientation Not on file documented as of this encounter Medications at Time of Discharge levonorgestrel (MIRENA) IUDIndications:Abn ormal Uterine Bleeding, Contraception 1 each by intrauterine route once 02/22/2014 multivitamin capsuleIndications :Vitamin Deficiency Prevention Take 1 capsule by mouth cement tile maker before breakfast ALPRAZolam (XANAX) 0.25 mg tabletIndications: [...] on filedocumented in this encounter Care Teams Development Geologist Relationship Specialty Start Date End Date Ana Pavon NP [address] [facility] [address] [place] [address] PCP - General Family Medicine 06/09/23 Kristen Mancera MD Medical Oncologist/Pipe Fitter Gas Pipe Medical Oncology 11/21/20 Lewis Sun[place] MD [address] [facility] [address] [place] [address] Surgeon Orthopedic Surgery 01/05/23 documented as of this encounter
--- OUTSIDE RECORDS SUMMARY | 2024-10-06 11:16 | XMS_ITS | Encounter Summary ---
Author Organization [facility] Healthcare Address [address] [place] [address] Care Team Providers Care Associate Professor Of Automation Name Role Phone Kristen Mancera MD Unavailable Lewis [place] MD Unavailable [phone] Ana Pavon NP Primary Care Provider [phone] Encounter Details Date Type Department Care Team (Latest Contact Info) Description 03/02/2024 1:32 PM CDT - 03/02/2024 11:59 PM CDT Hospital Encounter [facility] Advanced Medicine [facility] ([facility]) [address] [place] [address] Discharge Disposition: Discharge to home or self [...] on file Legal Sex Female 10:19 PM SHAKE CUTTER Gender Identity Not on file Sexual Orientation Not on file documented as of this encounter Medications at Time of Discharge cream base no.52, bulk, cream Place on the skin Testosterone multivitamin capsuleIndication s:Vitamin Deficiency Prevention Take 1 capsule by mouth workforce staffing advisor before breakfast progesterone (PROMETRIUM) 100 mg capsule [...] on filedocumented in this encounter Care Teams Associate Professor Of Automation Relationship Specialty Start Date End Date Ana Pavon NP [address] [facility] [address] [place] [address] PCP - General Family Medicine 06/09/23 Kristen Mancera MD Medical Oncologist/Sanding Line Operator Medical Oncology 11/21/20 Lewis Sunshine MD [address] [address] Surgeon Orthopedic Surgery 01/05/23 documented as of this encounter
--- OUTSIDE RECORDS SUMMARY | 2024-10-06 11:16 | XMS_ITS | Clinical Summary ---
Author Organization [facility] Address [address] [place] [address] Care Team Providers Care Damaged Freight Inspector Name Role Phone Kristen Mancera MD Unavailable Lewis Sunshine MD Unavailable [phone] Ana Pavon NP Primary Care Provider [phone] Allergies No known active allergies Medications levonorgestrel (MIRENA) IUDIndications:Ab normal Uterine Bleeding,Pregnanc y Contraception 1 each by intrauterine route once 02/23/20 14 Active multivitamin capsuleIndication s:Vitamin Deficiency Prevention Take 1 capsule by mouth clinical lab clerk before breakfast Active progesterone (PROMETRIUM) 100 mg [...] have. Assessment & Plan (09/12/2023 3:[address] ROLLER ENGINEER): Pap done. RTO 12m. 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) 12/31/2022 05/04/2023 Breast pain, left 04/09/2022 [...] herniation with radiculopathy 01/03/2023 Added automatically from [facility] for surgery [id number] Family History Medical History Relation Name Comments No Known Problems Brother Hypertension Father Anemia Mother [place] Cancer Mother [place] Hypertension Mother [place] Non-Hodgkin's Lymphoma Mother [place] No Known Problems Sister 1 Stroke Sister 2 Mer Marmolejo Anesthesia problems Neg Hx No colon , breast, associate professor of medicine cancer cmt 09/12/23 Relation Name Status Comments [...] on file Legal Sex Female 10:[address] ROLLER ENGINEER Gender Identity Not on file Sexual [...] T Respiratory Rate 16 10/19/2023 10:[address] ROLLER ENGINEER Oxygen Saturation 99% 10/19/2023 10:[address] ROLLER ENGINEER Inhaled Oxygen Concentration - - Weight 50.8 [...] TO HPV GENOTYPES Routine 09/12/2023 4:[address] ROLLER ENGINEER Well woman exam STOOL DNA ? COLOGUARD [...] age 40, based on guidelines of the [place] [employer] (ACR Practice Parameter for the Performance of Screening and Diagnostic Mammography) and [place] [employer] Gynecologists. For women [...] reflex to HPV Genotypes (09/12/2023 4:[address] ROLLER ENGINEER) CLINICAL INFORMATION: [facility] Comment:Routine exam LMP [facility] Comment:09/12/[address] [facility] Comment:NONE GIVEN Prev. Bx [facility] Comment:NONE GIVEN SOURCE: [facility] Comment:Cervix, Endocervix Pap, specimen adequacy [facility] Comment: Satisfactory for evaluation. Endocervical/transformation zone component present. HPV interp [facility] Comment: Cytology Results: Negative for intraepithelial lesion or malignancy. COMMENTS [facility] Comment: This case could not be evaluated with computer assisted technology. The slide was manually screened according to routine procedures. Brush Head Maker Que [facility] Comment: YQ, CT(ASCP) CT screening location: [place] [address] [address] [address] [facility] Comment: EXPLANATORY NOTE: The Pap is [...] High Risk E6/E7 Not Detected NOT DETECTED [facility] Comment: Not Detected High Risk HPV types (16,18,31,33,35,39,45,51,52, 56,58,59,66,68) were not detected. Other HPV types which cause anogenital lesions may be present. The significance of the other types of HPV in malignant processes has not been established. Methodology: Real Time PCR ? Thin prep 09/12/2023 4:[address] ROLLER ENGINEER 09/13/2023 4:[address] ROLLER ENGINEER us Susan Anderson MD LAB CYTOLOGY ORDERA SAIRA Final Result [place] [address] [address] [place] [address] [facility] [address] [facility] [place] [address] * Stool DNA - Cologuard (05/05/2022 10:00 AM CDT) Stool DNA - Cologuard Negative Negative [facility] (CLIA #:[id number]) Comment: NEGATIVE TEST RESULT. A negative Cologuard [...] cancer. ??Following a negative Cologuard result, the [place] Cancer Society and U.S. Multi-Society Task Force screening guidelines recommend a Cologuard re-screening interval of 3 years. References: [place] [employer] Guideline for Colorectal Cancer Screening: https://www.cancer.org/cancer/blsvk-mojvix-ammcra/ppoluduky-odwsnpjet-mzxfwdu/ac s-rec ommendations.html.; Doc MELENDEZ, Shelley CR, Shyam RemyK, Colorectal Cancer Screening: Recommendations for Physicians and Patients from the U.S. Multi-Society Task Force on Colorectal Cancer Screening , Am J Gastroenterology 2017; 112:6373-1041. TEST DESCRIPTION: Composite algorithmic analysis of stool [...] (Aiden Manning al, N Engl J Med 2014;370(14):2210-8454.) Cologuard may produce a false negative or false positive result (no colorectal cancer or precancerous polyp present at colonoscopy follow up). A negative Cologuard test result does not guarantee the absence of CRC or advanced adenoma (pre-cancer). The current Cologuard screening interval is every 3 years. ([place] [employer] and U.S. Multi-Society Task Force). Cologuard performance data in a 10,000 patient pivotal study using colonoscopy as the reference method can be accessed at the following location: www.E[employer].co.Freshplum/results. Additional description of the Cologuard test process, warnings and precautions can be found at www.cologuard.com. Stool 05/05/2022 10:0 0 AM CDT 05/06/2022 1:51 PM CDT us Kacey Gonzalez MD LAB BODY FLUIDS AND STOOL S ORDERABLES Final Result [employer] (CLIA #:[id number]) [address] [address] from Last 3 Months or Most Recently Relevant to Health Maintenance Insurance [address] [employer] ACCESS OOS [address] [employer] ACCESS OOS [address] [place] [id number] [employer] OOS Care Teams Damaged Freight Inspector Relationship Specialty Start Date End Date Ana Pavon NP [address] [address] PCP - General Family Medicine 06/09/23 Kristen Mancera MD Medical Oncologist/Clay Carman Medical Oncology 11/21/20 Lewis Sunshine MD [address] [address] Surgeon Orthopedic Surgery 01/05/23
--- OUTSIDE RECORDS SUMMARY | 2024-10-06 11:16 | XMS_ITS | Encounter Summary ---
Author Organization [facility] Address [address] [place] [address]. [place], [place] [address] [place] [address] Care Team Providers Care Line Analyst Name Role Phone Unavailable Primary Care Provider Unavailabl e Encounter Details Date Type Department Care Team (Late st Contact Info) Description 05/31/1997 [place] [address] , Generic Conversion, Social History Tobacco Use [...]
--- OUTSIDE RECORDS SUMMARY | 2024-10-06 11:17 | XMS_ITS | Encounter Summary ---
Author Organization [facility] Medical Group Address [address] [facility] [address] [place] [address] Care Team Providers Care Mine Patrol Name Role Phone Kristen Mancera MD Unavailable Lewis Sunshine MD Unavailable +- [phone] Everette Moyer NP Primary Care Provider [phone] Reason for Visit * Reason Comments Getting Established Encounter Details Date Type Department Care Team (Late st Contact Info) Description 06/09/2023 8:00 AM CDT Office Visit [facility] Medical [facility] Primary Care at [address] [address] Everette Moyer NP [address] [place] [address] [address] [place] [address] Primary insomnia (Primary Dx); Anxiety; [...] on file Legal Sex Female 10:19 PM LABORER CAR BARN Gender Identity Not on file Sexual Orientation [...] health care needs. Dr Olivas, Everette Moyer FLOOR LAYER TILE, Vanessa Hanna,and Jia Roland documented in this [...] documented as of this encounter Care Teams Mine Patrol Relationship Specialty Start Date End Date Everette Moyer NP [address] [facility] [address] [place] [address] PCP - General Family Medicine 06/09/23 Kristen Mancera MD Medical Oncologist/Manager Desktop Medical Oncology 11/21/20 Lewis Sunshine MD [address] [facility] [address] [place] [address] Surgeon Orthopedic Surgery 01/05/23 documented as of this encounter
--- OUTSIDE RECORDS SUMMARY | 2024-10-06 11:17 | XMS_ITS | Encounter Summary ---
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 Gender Identity Not on file Sexual Orientation Not on file documented as of this encounter Plan of Treatment Not on file documented as of this encounter Visit Diagnoses Diagnosis Neutropenia, unspecified type (HCC) documented in this encounter Orders Appointment Requests Count Last Ordered Date Fi rst Ordered Date ONCBCN LAB APPOINTMENT 1 03/04/2023 documented in this encounter Care Teams Pipe Setter Relationship Specialty Start Date End Date Kacey Gonzalez MD PCP - General Family Medicine 04/07/21 06/08/23 Kristen Mancera MD Medical Oncologist/Karate Black Belt Medical Oncology 11/21/20 Lewis Sunshine MD [address] [address] Surgeon Orthopedic Surgery 01/05/23 documented as of this encounter
--- OUTSIDE RECORDS SUMMARY | 2024-10-06 11:17 | XMS_ITS | Encounter Summary ---
Author Organization [facility] Healthcare Address [address] [place] [address] Care Team Providers Care Contracts Advisor Name Role Phone Kristen Mancera MD Unavailable Kacey Gonzalez MD Primary Care Provider [phone] [phone] Lewis Sunshine MD Unavailable +1- [phone] Encounter Details Date Type Department Care Team (Latest Contact Info) Description 03/04/2023 12:12 PM CDT - 03/04/2023 11:59 PM CDT Hospital Encounter 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 Testing performed by: [facility], [address] [place] [phone] Blood 03/04/2023 10:4 7 AM CDT 03/04/2023 10:48 AM CDT us Kristen Mancera MD LAB BLOOD ORDERABLES Final Resul t [facility] Department of Laboratories [place], [place] [id number] * Differential, auto (03/04/2023 10:47 AM CDT) Neutrophil abs 1.9 1.8 - 6.6 K/cumm [facility] Comment:Testing performed by : [facility], [address] [place] [phone] Lymphocyte abs 1.6 1.2 - 3.3 K/cumm [facility] Comment:Testing performed by : [facility], [address] [place] [phone] Monocyte abs 0.6 0.2 - 1.2 K/cumm [facility] Comment:Testing performed by : [facility], [address] [place] [phone] Eosinophil abs 0.2 0.0 - 0.5 K/cumm [facility] Comment:Testing performed by : [facility], [address] [place] [phone] Basophil abs 0.1 0.0 - 0.2 K/cumm [facility] Comment:Testing performed by : [facility], [address] [place] [phone] Neutrophil pct 43.3 % [facility] Comment: Interpretive Data Percent cell count reference ranges are not reported, since discordance with absolute values may lead to misinterpretation of CBC data. Current Interpretive Data was last revised on 2018. Testing performed by: [address] [address] Lymphocyte pct 36.8 % [facility] Comment: Interpretive Data Percent cell count reference ranges are not reported, since discordance with absolute values may lead to misinterpretation of CBC data. Current Interpretive Data was last revised on 2018. Testing performed by: [address] [address] Monocyte pct 13.4 % [facility] Comment:Testing performed by : [address] [address] Eosinophil pct 5.2 % [facility] Comment:Testing performed by : [facility], [address] [place] [phone] Basophil pct 1.3 % [facility] Comment:Testing performed by : [address] [address] Blood 03/04/2023 10:4 7 AM CDT 03/04/2023 10:48 AM CDT us Kristen Mancera MD LAB BLOOD ORDERABLES Final Resul t [facility] Department [place] [address] * CBC with auto differential (03/04/2023 10:47 AM CDT) WBC 4.4 3.8 - 9.8 K/cumm [facility] Comment:Testing performed by : [facility], [address] [place], [place] [phone] Hgb 13.1 12.1 - 15.1 g/dL [facility] Comment:Testing performed by : [facility], [address] [place], [place] [phone] Hct 39.4 36.1 - 44.3 % [facility] Comment:Testing performed by : [place] [id number] Plt 272 140 - 440 K/cumm [facility] Comment:Testing performed by : [place] [id number] MPV 8.2 6.8 - 10.4 fL [facility] Comment:Testing performed by : [place] [id number] RBC 4.21 3.90 - 5.00 M/cumm [facility] Comment:Testing performed by : [place] [id number] MCV 93.6 80.0 - 97.6 fL [facility] Comment:Testing performed by : [place] [id number] MCH 31.2 26.7 - 33.7 pg [facility] Comment:Testing performed by : [address] [address] MCHC 33.3 32.7 - 35.5 g/dL [facility] Comment:Testing performed by : [place] [id number] RDW CV 12.0 11.8 - 14.6 % [facility] Comment:Testing performed by : [address] [address] NRBC abs 0.00 0.00 - 0.01 K/cumm [facility] Comment:Testing performed by : [facility], [address] [place] [phone] Blood 03/04/2023 10:4 7 AM CDT 03/04/2023 10:48 AM CDT us Kristen Mancera MD LAB BLOOD ORDERABLES Final Resul t [facility] Department [place] [address] * (ABNORMAL) Comprehensive metabolic panel (03/04/2023 10:47 AM CDT) Sodium 137 135 - 145 mmol/L [facility] Comment:Testing performed by : [facility], [address] [place] [phone] Potassium, pl 4.8 3.3 - 4.9 mmol/L [facility] Comment:Testing performed by : [facility], [address] [place] [phone] Chloride 102 97 - 110 mmol/L [facility] Comment:Testing performed by : [facility], [address] [place] [address] CO2 30 22 - 32 mmol/L [facility] Comment:Testing performed by : [facility], [address] [place] [phone] Anion gap 5 2 - 15 mmol/L [facility] Comment:Testing performed by : [facility], [address] [place] [address] BUN 12 8 - 25 mg/dL [facility] Comment:Testing performed by : [facility], [address] [place] [phone] Creatinine 0.59(L) 0.60 - 1.10 mg/dL [facility] Comment:Testing performed by : [facility], [address] [place] [address] Glucose 84 70 - 199 mg/dL JAG [...] was last revised 2022. Testing performed by: [facility], [address] [place] [address] Calcium 9.7 8.5 - 10.3 mg/dL [facility] Comment:Testing performed by : [address] [address] Bilirubin, total 0.4 0.1 - 1.2 mg/dL [facility] Comment:Testing performed by : [address] [address] Protein, pl 7.0 6.5 - 8.5 g/dL [facility] Comment:Testing performed by : [facility], [address] [place] [address] Albumin 4.3 3.5 - 5.0 g/dL [facility] Comment:Testing performed by : [address] [address] Alk phos 40 40 - 130 Units/L [facility] Comment:Testing performed by : [address] [phone] ALT 10 7 - 45 Units/L [facility] Comment:Testing performed by : [facility], [address] [place] [phone] AST 15 10 - 45 Units/L [facility] Comment:Testing performed by : [address] [address] Blood 03/04/2023 10:4 7 AM CDT 03/04/2023 10:48 AM CDT us Kristen Mancera MD LAB BLOOD ORDERABLES Final Resul t [facility] Department [place] [address] * Lactate dehydrogenase (LD) (03/04/2023 10:47 AM CDT) Lactate dehydrogenase (LDH) 118 100 - 250 Units/L [facility] Comment:Testing performed by : [facility], [address] [place] [address] Blood 03/04/2023 10:4 7 AM CDT 03/04/2023 10:48 AM CDT us Kristen Mancera MD LAB BLOOD ORDERABLES Final Resul t [facility] Department [place] [address] documented in this encounter Visit Diagnoses Diagnosis Neutropenia, unspecified type (HCC) documented in this encounter Care Teams Contracts Advisor Relationship Specialty Start Date End Date Kacey Gonzalez MD PCP - General Family Medicine 04/07/21 06/08/23 Kristen Mancera MD Medical Oncologist/Scoop Machine Operator Medical Oncology 11/21/20 Lewis Sunshine MD [address] [place] [address] Surgeon Orthopedic Surgery 01/05/23 documented as of this encounter
--- OUTSIDE RECORDS SUMMARY | 2024-10-06 11:17 | XMS_ITS | Encounter Summary ---
Author Organization [facility] Address [address] [place] [address] Phone Care Team Providers Care Supervisor Briar Shop Name Role Phone Kristen Mancera MD Unavailable Kacey Gonzalez MD Primary Care Provider [phone] Lewis Sunshine MD Unavailable +1- [phone] Reason for Visit * Reason Comments Post-op Encounter Details Date Type Department Care Team (Late st Contact Info) Description 02/21/2023 8:30 AM CDT Office Visit [facility] Orthopaedic Surgery [address] [facility] Medicine 6th [place] [address] [place] [phone] Lewis Sunshine MD [address] [facility] 6A[address]6B[address] [place] [address] Lumbar radiculopathy (Primary Dx) Social History Tobacco [...] on file 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 Lewis Sunshine M.D., M.S. Rotary Cutter Feeder Orthopaedic and Neurological Surgery [facility] [place], [place] Purification Operator Helper done by [employer]; therefore, variances and [...] documented as of this encounter Care Teams Supervisor Briar Shop Relationship Specialty Start Date End Date Kacey Gonzalez MD PCP - General Family Medicine 04/07/21 06/08/23 Kristen Mancera MD Medical Oncologist/Timber Estimator Medical Oncology 11/21/20 Lewis Sunshine MD [address] [address] Surgeon Orthopedic Surgery 01/05/23 documented as of this encounter
--- OUTSIDE RECORDS SUMMARY | 2024-10-06 11:17 | XMS_ITS | Encounter Summary ---
Author Organization [facility] Healthcare Address [address] [place] [address] Care Team Providers Care Guest Services Ambassador Name Role Phone Kristen Mancera MD Unavailable Kacey Gonzalez MD Primary Care Provider [phone] Lewis Sunshine MD Unavailable +1- [phone] Encounter Details Date Type Department Care Team (Latest Contact Info) Description 05/04/2023 10:44 AM CDT - 05/04/2023 11:59 PM CDT Hospital Encounter 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 Gender Identity Not on file Sexual Orientation Not on file documented as of this encounter Medications at Time of Discharge levonorgestrel (MIRENA) IUDIndications:Abn ormal Uterine Bleeding, Contraception 1 each by intrauterine route once 02/22/2014 multivitamin capsuleIndications :Vitamin Deficiency Prevention Take 1 capsule by mouth pipelaying fitter before breakfast ALPRAZolam (XANAX) 0.25 mg [...] on filedocumented in this encounter Care Teams Guest Services Ambassador Relationship Specialty Start Date End Date Kacey Gonzalez MD PCP - General Family Medicine 04/07/21 06/08/23 Kristen Mancera MD Medical Oncologist/Well Surveying Engineer Medical Oncology 11/21/20 Lewis Sunshine MD [address] [address] Surgeon Orthopedic Surgery 01/05/23 documented as of this encounter
--- OUTSIDE RECORDS SUMMARY | 2024-10-06 11:17 | XMS_ITS | Encounter Summary ---
Author Organization [facility] Medical Group Address [address] [facility] [address] [place] [address] Care Team Providers Care Philosophy Instructor Name Role Phone Kristen Mancera MD Unavailable Kacey Gonzalez MD Primary Care Provider [phone] Lewis Sunshine MD Unavailable +1- [phone] Encounter Details Date Type Department Care Team (Late st Contact Info) Description 05/04/2023 Telephone [facility] Medical [facility] [address] [address] Kacey Gonzalez MD 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
--- OUTSIDE RECORDS SUMMARY | 2024-10-06 11:17 | XMS_ITS | Encounter Summary ---
Author Organization [facility] Address [address] [place] [address] Phone Care Team Providers Care Manifold Operator Name Role Phone Kristen Mancera MD Unavailable Kacey Gonzalez MD Primary Care Provider [phone] -[phone] Lewis Sunshine MD Unavailable +1- [phone] Encounter Details Date Type Department Care Team (Late st Contact Info) Description 03/04/2023 11:20 AM CDT Office Visit 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
--- OUTSIDE RECORDS SUMMARY | 2024-10-06 11:17 | XMS_ITS | Encounter Summary ---
Author Organization [facility] Medical Group Address [address] [facility] [address] [place] [address] Care Team Providers Care Pigment Pumper Name Role Phone Kristen Mancera MD Unavailable Kacey Gonzalez MD Primary Care Provider [phone] Lewis Sunshine MD Unavailable +1- [phone] Reason for Visit * Reason Comments PE Encounter Details Date Type Department Care Team (Late st Contact Info) Description 05/04/2023 9:30 AM CDT Office Visit [facility] Medical [facility] [address] [phone] Taylor Whittington, DERICK [address] [facility] [address], [place] [address] Annual physical exam (Primary Dx); [...] on file 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 73 m2 [facility] Comment: Interpretive Data Reference Interval Normal ?>/= [...] lt Performing Organization Address [facility]/ZIP Co de Phone Number [facility] [address] [place] [address] * TSH reflex to free T4 (05/04/2023 9:56 AM CDT) Pathologist [facility] TSH 1.66 0.30 - 4.20 mcIUnit/mL [facility] Blood 05/04/2023 9:56 AM CDT 05/04/2023 12:27 PM CDT Taylor Whittington NP LAB BLOOD ORDERABLES Final Resu lt Performing Organization Address [facility] Co de Phone Number [facility] [address] Department [place] [address] * (ABNORMAL) Lipid panel (05/04/2023 9:56 AM CDT) Pathologist [facility] Cholesterol 252(H) 30 - 199 mg/dL [facility] Comment: Interpretive Data Ages < [...] revised on 2018. Triglycerides 57 <=149 mg/dL [facility] Comment: Interpretive Data Ages < [...] revised on 2018. HDL 83 >=40 mg/dL [facility] Comment: Interpretive Data Ages < [...] on 2018. LDL, calculated 158(H) <=129 mg/dL [facility] Comment: Interpretive Data Ages < [...] revised on 2018. Non-HDL Cholesterol 169 mg/dL [facility] Comment: Interpretive Data Ages < [...] last revised on 2018. Chol/HDL ratio 3 [facility] Blood 05/04/2023 9:56 AM CDT 05/04/2023 12:27 PM CDT us Taylor Whittington NP LAB BLOOD ORDERABLES Final Resu lt [facility] [address] Department [place] [address] * Hemoglobin A1c (05/04/2023 9:56 AM CDT) Hgb A1C 4.6 4.0 - 5.6 % [facility] Estimated Average Glucose 85 mg/dL [facility] Comment: The ADA recommends reporting an estimated Average Glucose (eAG) with all Hemoglobin A1c results using the equation derived from a study of 507 normal and diabetic adults. ??Minority populations were underrepresented and children were not included. ?? (Diabetes Care 31:7208-3249, 2008). ??The eAG is not equivalent to a fasting glucose. Blood 05/04/2023 9:56 AM CDT 05/04/2023 12:27 PM CDT us Taylor Whittington NP LAB BLOOD ORDERABLES Final Resu lt [facility] [address] Department [place] [address] * Comprehensive metabolic panel (05/04/2023 9:56 AM CDT) Sodium 140 135 - 145 mmol/L [facility] Potassium, pl 4.7 3.3 - 4.9 mmol/L [facility] Chloride 103 97 - 110 mmol/L [facility] CO2 25 22 - 32 mmol/L [facility] Anion gap 12 2 - 15 mmol/L [facility] BUN 8 6 - 25 mg/dL [facility] Creatinine 0.64 0.60 - 1.10 mg/dL [facility] Glucose 80 70 - 199 mg/dL [facility] Comment: Interpretive Data Fasting glucose >/= [...] 2022. Calcium 9.5 8.5 - 10.3 mg/dL [facility] Bilirubin, total 0.8 0.1 - 1.2 mg/dL [facility] Protein, pl 7.2 6.5 - 8.5 g/dL [facility] Albumin 4.6 3.5 - 5.0 g/dL [facility] Alk phos 40 40 - 130 Units/L [facility] ALT 17 7 - 45 Units/L [facility] AST 21 10 - 45 Units/L [facility] Blood 05/04/2023 9:56 AM CDT 05/04/2023 12:27 PM CDT Taylor Whittington NP LAB BLOOD ORDERABLES Final Resu lt Performing Organization Address [facility] Co de Phone Number [facility] [address] [place] [address] * (ABNORMAL) CBC without differential (05/04/2023 9:56 AM CDT) [facility] WBC 3.2(L) 3.8 - 9.9 K/cumm [facility] Hgb 14.5 11.9 - 15.5 g/dL [facility] Hct 43.4 35.6 - 45.5 % [facility] Plt 304 150 - 400 K/cumm [facility] MPV 11.3 9.1 - 12.3 fL [facility] RBC 4.58 3.90 - 5.20 M/cumm [facility] MCV 94.8 81.3 - 96.4 fL [facility] MCH 31.7 27.1 - 33.3 pg [facility] MCHC 33.4 32.3 - 35.7 g/dL [facility] RDW CV 12.0 11.1 - 14.9 % [facility] RDW SD 42.1 35.7 - 48.1 fL [facility] NRBC abs 0.00 0.00 - 0.01 K/cumm [facility] Blood 05/04/2023 9:56 AM CDT 05/04/2023 12:27 PM CDT Taylor Whittington NP LAB BLOOD ORDERABLES Final Resu lt [facility] [address] [place] [address] documented in this encounter Visit Diagnoses Diagnosis Annual physical exam- Primary Routine general medical examination at a health care facility Anxiety Anxiety state, unspecified Primary insomnia Persistent disorder of initiating or maintaining sleep documented in this encounter Care Teams Pigment Pumper Relationship Specialty Start Date End Date Kacey Gonzalez MD PCP - General Family Medicine 04/07/21 06/08/23 Kristen Mancera MD Medical Oncologist/Drainlayer Medical Oncology 11/21/20 Lewis Sunshine MD [address] [address] Surgeon Orthopedic Surgery 01/05/23 documented as of this encounter
--- OUTSIDE RECORDS SUMMARY | 2024-10-06 11:17 | XMS_ITS | Encounter Summary ---
Author Organization [facility] Address [address] [facility] [place] [address] Care Team Providers Care Lacing Operator Name Role Phone Kristen Mancera MD Unavailable Kacey Gonzalez MD Primary Care Provider [phone] [phone] Lewis Sunshine MD Unavailable +1- [phone] Reason for Visit * Reason Onset Date Comments Medical Question/Miscellaneous 04/28/2023 Encounter Details Date Type Department Care Team (Late st Contact Info) Description 04/28/2023 Telephone [facility] Medical [facility] [address] [address] Kacey Gonzalez MD [address] [facility] [address], [place] [address] Medical Question/Miscellaneous Social History Tobacco [...] on file 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 Yes-Action Needed documented in this encounter Plan of Treatment Not on file documented as of this encounter Visit Diagnoses Not on filedocumented in this encounter Care Teams Lacing Operator Relationship Specialty Start Date End Date Kacey Gonzalez MD PCP - General Family Medicine 04/07/21 06/08/23 Kristen Mancera MD Medical Oncologist/Tool And Die Maker Medical Oncology 11/21/20 Lewis Sunshine MD [address] [place] [address] Surgeon Orthopedic Surgery 01/05/23 documented as of this encounter
--- OUTSIDE RECORDS SUMMARY | 2024-10-06 11:17 | XMS_ITS | Encounter Summary ---
Author Organization [facility] Address [address] [place] [address] Phone Care Team Providers Care Trawl Net Maker Name Role Phone Kristen Mancera MD Unavailable Kacey Gonzalez MD Primary Care Provider [phone] [phone] Lewis Sunshine MD Unavailable +1- [phone] Reason for Visit * Reason Comments Post-op 3 Month Post Op Encounter Details Date Type Department Care Team (Late st Contact Info) Description 04/25/2023 8:30 AM CDT Office Visit [facility] Orthopaedic Surgery [address] [facility] 6th [place] [address] [place] [address] Lewis Sunshine MD [address] 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 Lewis Sunshine M.D., M.S. Loss Prevention Supervisor Orthopaedic and Neurological Surgery [facility] [employer] [facility] [place], [place] Freight Separator done by Fluency Direct; therefore, variances and [...] myelopathy documented in this encounter Care Teams Trawl Net Maker Relationship Specialty Start Date End Date Kacey Gonzalez MD PCP - General Family Medicine 04/07/21 06/08/23 Kristen Mancera MD Medical Oncologist/Manager Room Medical Oncology 11/21/20 Lewis Sunshine MD [address] [address] Surgeon Orthopedic Surgery 01/05/23 documented as of this encounter
--- OUTSIDE RECORDS SUMMARY | 2024-10-06 11:17 | XMS_ITS | Encounter Summary ---
Author Organization [facility] Address [address] [place] [address] Phone Care Team Providers Care Engine Cleaner Name Role Phone Kristen Mancera MD Unavailable Kacey Gonzalez MD Primary Care Provider [phone] [phone] Lewis Sunshine MD Unavailable +1- [phone] Encounter Details Date Type Department Care Team (Late st Contact Info) Description 02/04/2023 Telephone [facility] Bone Marrow Transplant [address] [facility] 7th Floor, [place] [address] Kristen Mancera MD [address] DIV IM BONE MARROW TRANSPLANT, [address] [place] [address] Social History Tobacco Use Types [...] on file 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
--- OUTSIDE RECORDS SUMMARY | 2024-10-06 11:18 | XMS_ITS | Encounter Summary ---
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
--- OUTSIDE RECORDS SUMMARY | 2024-10-06 11:18 | XMS_ITS | Encounter Summary ---
Author Organization [facility] Address [address] [place] [address] Phone Care Team Providers Care Director Of Email Marketing Name Role Phone Kristen Mancera MD Unavailable Kacey Gonzalez MD Primary Care Provider [phone] [phone] Reason for Referral * MRI/CAT/PET Scan (Routine) - Closed Specialty Diagnoses / Procedures Referred By Contac t Referred To Contact Radiology Diagnoses Acute left-sided low back pain with left-sided sciatica Procedures MRI [place]bar [place] [address] [place] [address] Phone: tel: fax: [address] [address] Referral ID Status Reason Start Date Expiration Date Visits Re quested Visits Authorized [id number] Closed 11/02/2022 12/31/2022 1 1 K INSPECTOR * Diagnostic Imaging (Routine) - Closed Specialty Diagnoses / Procedures Referred By Contac t Referred To Contact Diagnoses Lumbar spine pain Procedures XR Spine Lumbar 2 [place] [address] [place] [address] Phone: tel: fax: [facility] Referral ID Status Reason Start Date Expiration Date Visits Re quested Visits Authorized [id number] Closed 11/01/2022 12/01/2023 1 1 K INSPECTOR Reason for Visit * Reason Comments Pain Encounter Details Date Type Department Care Team (Late st Contact Info) Description 11/01/2022 1:00 PM TRACK INSPECTOR Office Visit [facility] Orthopedic [facility] ([facility]) - [facility] [address] [place] [address] [place] [address] [place] [address] Acute left-sided low back pain with left-sided [...] on file Legal Sex Female 10:19 PM TRACK INSPECTOR Gender Identity Not on file Sexual Orientation Not on file documented as of this encounter Last Filed Vital Signs Vital Sign Reading Time Taken Comments Blood Pressure - - Pulse - - Temperature - - Respiratory Rate - - Oxygen Saturation - - Inhaled Oxygen Concentration - - Weight 54 kg (119 lb) 11/01/2022 1:05 PM TRACK INSPECTOR Height 157.5 cm (5' 2 ) 11/01/2022 1:05 PM TRACK INSPECTOR Body Mass Index 21.77 11/01/2022 1:05 PM TRACK INSPECTOR documented in this encounter Patient Instructions * Patient Instructions* Nelsy Weber PA - 11/01/2022 1:00 PM TRACK INSPECTOR Images from the original note were not [...] your primary care provider. Nelsy Weber PA-C [facility] Department of Orthopaedic Surgery Working in collaborative practice with Richar Verma M.D. K INSPECTOR documented in this encounter Ordered Prescriptions Prescription [...] from the original note were not included. [facility] ORTHOPEDIC INJURY CLINIC CHIEF COMPLAINT Low back [...] with above treatment plan. Nelsy Weber PA-C [facility] Department of Orthopaedic Surgery Working in collaboration with Richar Verma M.D. Portions of this note were dictated using Open English Fluency Direct speech recognition software. Please excuse any fermentation engineer errors. Cosigned by Richar Verma MD at 11/08/2022 8:24 AM TRACK INSPECTOR K INSPECTOR K INSPECTOR documented in this encounter Plan of Treatment Not on file documented as of this encounter Results * MRI Lumbar Spine WO Contrast (11/05/2022 9:11 AM TRACK INSPECTOR) Anatomical Region Laterality Modality Spine N/A Magnetic Resonan ce 11/05/2022 10:0 1 AM TRACK INSPECTOR Impressions 11/05/2022 10:03 AM TRACK INSPECTOR Mild degenerative changes of the lumbar spine. [...] Genevieve Aldrich M.D. Narrative 11/05/2022 10:03 AM TRACK INSPECTOR EXAMINATION: Magnetic resonance imaging (MRI) of the [...] 2 or 3 Views (11/01/2022 1:31 PM TRACK INSPECTOR) Anatomical Region Laterality Modality Spine N/A Computed Radiogr aphy 11/01/2022 1:36 PM TRACK INSPECTOR Impressions 11/01/2022 1:36 PM TRACK INSPECTOR 1. Minimal stepwise retrolisthesis of L1-L3. Disc heights are preserved. Electronically signed by: Rodrigo Tarango MD Narrative 11/01/2022 1:36 PM TRACK INSPECTOR EXAM: 1. ??XR SPINE LUMBAR 2 OR [...] sciatica documented in this encounter Care Teams Director Of Email Marketing Relationship Specialty Start Date End Date Kacey Gonzalez MD PCP - General Family Medicine 04/07/21 06/08/23 Kristen Mancera MD Medical Oncologist/Home Visits Nurse Medical Oncology 11/21/20 documented as of this encounter
--- OUTSIDE RECORDS SUMMARY | 2024-10-06 11:18 | XMS_ITS | Encounter Summary ---
Author Organization [facility] Address [address] [place] [address] Phone Care Team Providers Care Accounting Director Name Role Phone Kristen Mancera MD Unavailable Kacey Gonzalez MD Primary Care Provider [phone] [phone] Encounter Details Date Type Department Care Team (Late st Contact Info) Description 11/08/2022 12:00 PM PUBLIC RELATIONS ACCOUNT EXECUTIVE Telemedicine [facility] Orthopaedic Surgery [address] 2nd Floor [address] [place] [address] [place] [address] [place] [address] Acute left-sided low back pain [...] on file Legal Sex Female 10:19 PM PUBLIC RELATIONS ACCOUNT EXECUTIVE Gender Identity Not on file Sexual Orientation Not on file documented as of this encounter Patient Instructions * Patient Instructions* Nelsy Weber PA - 11/08/2022 12:00 PM PUBLIC RELATIONS ACCOUNT EXECUTIVE Images from the original note were not included. Karen Medeiros 1970 1. Acute left-sided low back pain with left-sided sciatica RECOMMENDATIONS: Schedule STEVEN with Dr. Verma Please contact my office at [phone] with questions or if symptoms do not improve. If you have My Chart, you may e-mail routine questions. Please allow 1-2 business days If an urgent problem that requires immediate attention, please call [phone] during regular business hours, or the exchange after 4:30 at or . Nelsy Weber PA-C [facility] Department of Orthopaedic Surgery Working in collaborative practice with Richar Verma M.D. IC RELATIONS ACCOUNT EXECUTIVE documented in this encounter Progress Notes * Nelsy Weber PA - 11/08/2022 12:00 PM CST Images from the original note were not included. RETURN PATIENT TELEMEDICINE VISIT This was a telemedicine visit with Karen Medeiros alone which took place via telephone. During the visit, I was located at the office and the patient/parent was located at home in the state of [place].My total encounter time on 11/08/2022 was 10 [...] a telephone or video visit during the [facility] emergency[facility] explained to them. After being [...] help scheduleprocedure. All questions answered. LILIA Corona [facility] Department of Orthopedic Surgery IC RELATIONS ACCOUNT EXECUTIVE documented in this encounter Plan of Treatment Not on file documented as of this encounter Visit Diagnoses Diagnosis Acute left-sided low back pain with left-sided sciatica- Primary documented in this encounter Care Teams Accounting Director Relationship Specialty Start Date End Date Kacey Gonzalez MD PCP - General Family Medicine 04/07/21 06/08/23 Kristen Mancera MD Medical Oncologist/Combining Machine Operator Medical Oncology 11/21/20 documented as of this encounter
--- OUTSIDE RECORDS SUMMARY | 2024-10-06 11:18 | XMS_ITS | Encounter Summary ---
Author Organization [facility] Address [address] [place] [address] Phone Care Team Providers Care Hydroelectric Production Manager Name Role Phone Kristen Mancera MD Unavailable Kacey Gonzalez MD Primary Care Provider [phone] [phone] Reason for Referral * Diagnostic Imaging (Routine) - Closed Specialty Diagnoses / Procedures Referred By Contac t Referred To Contact Diagnoses Acute left-sided low back pain with left-sided sciatica Procedures XR Scoliosis 4 or 5 Views Lewis Sunshine MD [address] [facility] 6A/6B/12A [place] [address] Phone: tel: fax: [facility] Radiology [address] [address] Phone: tel: Referral ID Status Reason Start Date Expiration Date Visits Re quested Visits Authorized [id number] Closed 11/30/2022 12/30/2023 1 1 ET ROW MARKER Reason for Visit * Reason Comments Pain * Consultation (Routine) - Closed Specialty Diagnoses / Procedures Referred By Contac t Referred To Contact Orthopedic Surgery Diagnoses DDD (degenerative disc disease), lumbosacral Protrusion of intervertebral disc of lumbosacral region [place]icular [place] [address] [place] [address] Phone: tel: fax: [facility] (All Locations) Referral ID Status Reason Start Date Expiration Date V isits Requested Visits Authorized [id number] Closed Specialty Services Required 11/22/2022 12/22/2023 1 1 Encounter Details Date Type Department Care Team (Late st Contact Info) Description 12/01/2022 10:15 AM EYELET ROW MARKER Office Visit [facility] Orthopaedic Surgery [address] [facility] Medical Office Building [address] [place] [address] Lewis Sunshine MD [address] [facility] [place] [address] Acute left-sided low back pain with left-sided [...] on file Legal Sex Female 10:19 PM EYELET ROW MARKER Gender Identity Not on file Sexual [...] any potential surgery. Lewis Sunshine M.D., M.S. Hogshead Head Matcher Orthopaedic and Neurological Surgery [facility] [employer] [facility] [place], [place] Medical Case Worker done by Fluency Direct; therefore, variances and inaccuracies may occur. I reviewed the patient problem list pertinent to the visit today, but the entire patient problem list was not reviewed today. documented in this encounter Plan of Treatment Not on file documented as of this encounter Results * XR Scoliosis 4 or 5 Views (12/01/2022 10:27 AM EYELET ROW MARKER) Anatomical Region Laterality Modality Spine N/A Computed Radiogr aphy 12/01/2022 11:2 5 AM EYELET ROW MARKER Impressions 12/01/2022 12:36 PM EYELET ROW MARKER 1. Mild L5-S1 degenerative disc disease. Dictated by: Omar Snider M.D. The radiology attending physician has personally reviewed this study, and had reviewed and/or edited this written report and agrees with it. Electronically signed by: Zen Shea M.D. Narrative 12/01/2022 12:36 PM EYELET ROW MARKER EXAMINATION: XR SCOLIOSIS 4 OR 5 VW [...] 23 documented in this encounter Care Teams Hydroelectric Production Manager Relationship Specialty Start Date End Date Kacey Gonzalez MD PCP - General Family Medicine 04/07/21 06/08/23 Kristen Mancera MD Medical Oncologist/Heat Treat Supervisor Medical Oncology 11/21/20 documented as of this encounter
--- OUTSIDE RECORDS SUMMARY | 2024-10-06 11:18 | XMS_ITS | Encounter Summary ---
Author Organization [facility] Address [address] [place] [address] Phone Care Team Providers Care Face Hardener Name Role Phone Kristen Mancera MD Unavailable Kacey Gonzalez MD Primary Care Provider [phone] [phone] Lewis Sunshine MD Unavailable [phone]- [phone] Reason for Visit * Reason Comments Pre-op Visit Encounter Details Date Type Department Care Team (Late st Contact Info) Description 01/10/2023 9:15 AM CDT Office Visit [facility] Orthopaedic Surgery [address] [facility] 6th [place] [address] [place] [address] Lewis Sunshine MD [address] [facility] 6A/6B/12A [place] [address] Lumbar disc herniation (Primary Dx) Social History [...] on file Legal Sex Female 10:19 PM IRON WORKER FOREMAN Gender Identity Not on file Sexual Orientation [...] left-sided paracentral L5-S1 disc herniation compressing the [id number] root. Impression/Plan Lumbar radiculopathy from a left L5-S1 disc herniation. She is tried and failed conservative treatments. She is indicated for left L5-S1 diskectomy. I reviewed risks benefits and alternatives with the patient. She wished to proceed. Lewis Sunshine M.D., M.S. Liberal Arts Dean Orthopaedic and Neurological Surgery [facility] [place], [place] Sanitation Truck Cleaner done by Fluency Direct; therefore, variances and [...] scheduled the preadmission testing appointment in the [facility] center for 01/05/23. The surgical procedure [...] myelopathy documented in this encounter Care Teams Face Hardener Relationship Specialty Start Date End Date Kacey Gonzalez MD PCP - General Family Medicine 04/07/21 06/08/23 Kristen Mancera MD Medical Oncologist/School Cleaner Medical Oncology 11/21/20 Lewis Sunshine MD [address] [address] Surgeon Orthopedic Surgery 01/05/23 documented as of this encounter
--- OUTSIDE RECORDS SUMMARY | 2024-10-06 11:18 | XMS_ITS | Encounter Summary ---
Author Organization [facility] Healthcare Address [address] [place] [address] Care Team Providers Care Template Checker Name Role Phone Kristen Mancera MD Unavailable Kacey Gonzalez MD Primary Care Provider [phone] [phone] Lewis Sunshine MD Unavailable +1- [phone] Encounter Details Date Type Department Care Team (Latest Contact Info) Description 02/04/2023 12:27 PM CDT - 02/04/2023 11:59 PM CDT Hospital Encounter [facility] Advanced [facility] ([facility]) [address] [place] [address] Discharge Disposition: Discharge to home or self [...] on file Legal Sex Female 10:19 PM UNDERGROUND HEAVY EQUIPMENT OPERATOR Gender Identity Not on file Sexual Orientation Not on file documented as of this encounter Medications at Time of Discharge levonorgestrel (MIRENA) IUDIndications:Abn ormal Uterine Bleeding, Contraception 1 each by intrauterine route once 02/22/2014 multivitamin capsuleIndications :Vitamin Deficiency Prevention Take 1 capsule by mouth accounts payable technician before breakfast acetaminophen (TYLENOL) 500 mg tabletIndications: [...] on filedocumented in this encounter Care Teams Template Checker Relationship Specialty Start Date End Date Kacey Gonzalez MD PCP - General Family Medicine 04/07/21 06/08/23 Kristen Mancera MD Medical Oncologist/Engine Installer Medical Oncology 11/21/20 Lewis Sunshine MD [address] [address] Surgeon Orthopedic Surgery 01/05/23 documented as of this encounter
--- OUTSIDE RECORDS SUMMARY | 2024-10-06 11:18 | XMS_ITS | Encounter Summary ---
Author Organization [facility] Address [address] [place] [address] Phone Care Team Providers Care Seconds Handler Name Role Phone Kristen Mancera MD Unavailable Kacey Gonzalez MD Primary Care Provider [phone] [phone] Reason for Visit * Reason Onset Date Comments Spinal Surgery 12/30/2022 Encounter Details Date Type Department Care Team (Late st Contact Info) Description 12/30/2022 Telephone [facility] Orthopaedic Surgery [address] [facility] Medical Office Building [address] [place] [address] Lewis Sunshine MD [address] [facility] [address] [place] [address] Spinal Surgery Social History Tobacco Use Types Packs/Day Years Used Date Smoking Tobacco: Never Smokeless Tobacco: Never PHQ-2 Answer Date Recorded PHQ-2 Total Score (If total score is 3 or more points, staff should administer the PHQ-9) 0 04/20/2022 Comments No Sex and Gender Information Value Date Recorded Sex Assigned at Not on file Legal Sex Female 10:19 PM AUTOMATIC SPINNING LATHE SETTER Gender Identity Not on file Sexual Orientation [...] on filedocumented in this encounter Care Teams Seconds Handler Relationship Specialty Start Date End Date Kacey Gonzalez MD PCP - General Family Medicine 04/07/21 06/08/23 Kristen Mancera MD Medical Oncologist/Court Magistrate Medical Oncology 11/21/20 documented as of this encounter
--- OUTSIDE RECORDS SUMMARY | 2024-10-06 11:18 | XMS_ITS | Encounter Summary ---
Author Organization [facility] Address [address] [place] [address] Phone Care Team Providers Care Bottled Beverage Inspector Name Role Phone Kristen Mancera MD Unavailable Kacey Gonzalez MD Primary Care Provider [phone] [phone] Lewis Sunshine MD Unavailable [phone]- [phone] Encounter Details Date Type Department Care Team (Late st Contact Info) Description 01/05/2023 Telephone [facility] Bone Marrow Transplant [address] [facility] 7th Floor, [place] [address] Vita Hunter, RN Social History [...] on file Legal Sex Female 10:19 PM FASHION MARKETER Gender Identity Not on file Sexual Orientation Not on file documented as of this encounter Miscellaneous Notes * Telephone Encounter - Vita Jones RN - 01/05/2023 1:46 PM CDT Discussed 327 CBC results with Fioradliza. WBC and ANC recovered so ok to proceed with surgery next week. documented in this encounter Plan of Treatment Not on file documented as of this encounter Visit Diagnoses Not on filedocumented in this encounter Care Teams Bottled Beverage Inspector Relationship Specialty Start Date End Date Kacey Gonzalez MD PCP - General Family Medicine 04/07/21 06/08/23 Kristen Mancera MD Medical Oncologist/Center Specialists Medical Oncology 11/21/20 Lewis Sunshine MD [address] [address] Surgeon Orthopedic Surgery 01/05/23 documented as of this encounter
--- OUTSIDE RECORDS SUMMARY | 2024-10-06 11:18 | XMS_ITS | Encounter Summary ---
Author Organization [facility] Healthcare Address [address] [place] [address] Care Team Providers Care Principal Accounts Clerk Name Role Phone Kristen Mancera MD Unavailable Kacey Gonzalez MD Primary Care Provider +1 [phone] Reason for Referral * Diagnostic Imaging (Routine) - Closed Specialty Diagnoses / Procedures Referred By Contac t Referred To Contact Diagnoses Acute left-sided low back pain with left-sided sciatica Procedures XR Scoliosis 4 or 5 Views Lewis Sunshine MD [address], [place] [address] Phone: tel: fax: [facility] Radiology [address] [place] [address] Phone: tel: Referral ID Status Reason Start Date Expiration Date Visits Re quested Visits Authorized [id number] Closed 11/30/2022 12/30/2023 1 1 ING PATROLLER Reason for Visit * Diagnostic Imaging (Routine) - Closed Specialty Diagnoses / Procedures Referred By Contac t Referred To Contact Diagnoses Acute left-sided low back pain with left-sided sciatica Procedures XR Scoliosis 4 or 5 Views Lewis Sunshine MD [address], [place] [address] Phone: tel: fax: [facility] [address] [place] [address] Phone: tel: Referral ID Status Reason Start Date Expiration Date Visits Re quested Visits Authorized [id number] Closed 11/30/2022 12/30/2023 1 1 Encounter Details Date Type Department Care Team (Latest Contact Info) Description 12/01/2022 9:45 AM PARKING PATROLLER - 12/01/2022 11:59 PM PARKING PATROLLER Hospital Encounter [facility] [address] [place] [address] Acute [...] on file Legal Sex Female 10:19 PM PARKING PATROLLER Gender Identity Not on file Sexual Orientation [...] Read Routine (OP Routine) 12/01/2022 10:27 AM PARKING PATROLLER Acute left-sided low back pain with left-sided sciatica documented in this encounter Results * XR Scoliosis 4 or 5 Views (12/01/2022 10:27 AM PARKING PATROLLER) Anatomical Region Laterality Modality Spine N/A Computed Radiogr aphy 12/01/2022 11:2 5 AM PARKING PATROLLER Impressions 12/01/2022 12:36 PM PARKING PATROLLER 1. Mild L5-S1 degenerative disc disease. Dictated by: Omar Snider M.D. The radiology attending physician has personally reviewed this study, and had reviewed and/or edited this written report and agrees with it. Electronically signed by: Zen Shea M.D. Narrative 12/01/2022 12:36 PM PARKING PATROLLER EXAMINATION: XR SCOLIOSIS 4 OR 5 VW [...] sciatica documented in this encounter Care Teams Principal Accounts Clerk Relationship Specialty Start Date End Date Kacey Gonzalez MD PCP - General Family Medicine 04/07/21 06/08/23 Kristen Mancera MD Medical Oncologist/Addiction Specialist Medical Oncology 11/21/20 documented as of this encounter
--- OUTSIDE RECORDS SUMMARY | 2024-10-06 11:18 | XMS_ITS | Encounter Summary ---
Author Organization [facility] Address [address] [place] [address] Phone Care Team Providers Care Hardwood Floor Installation Helper Name Role Phone Kristen Mancera MD Unavailable Kacey Gonzalez MD Primary Care Provider [phone] [phone] Encounter Details Date Type Department Care Team (Late st Contact Info) Description 01/03/2023 7:30 AM CDT Lab [facility] Oncology [address] [facility] [address] 7th [place] [address] [place] [address] Neutropenia, unspecified type (HCC) Social [...] on file Legal Sex Female 10:19 PM CONVENIENCE RECYCLE CENTER TECH Gender Identity Not on file Sexual Orientation Not on file documented as of this encounter Plan of Treatment Not on file documented as of this encounter Visit Diagnoses Diagnosis Neutropenia, unspecified type (HCC) documented in this encounter Orders Appointment Requests Count Last Ordered Date Fi rst Ordered Date ONCBCN LAB APPOINTMENT 1 01/03/2023 documented in this encounter Care Teams Hardwood Floor Installation Helper Relationship Specialty Start Date End Date Kacey Gonzalez MD PCP - General Family Medicine 04/07/21 06/08/23 Kristen Mancera MD Medical Oncologist/County Commissioner Medical Oncology 11/21/20 documented as of this encounter
--- OUTSIDE RECORDS SUMMARY | 2024-10-06 11:18 | XMS_ITS | Encounter Summary ---
Author Organization [facility] Address [address] [place] [address] Phone Care Team Providers Care Instrumental Teacher Name Role Phone Kristen Mancera MD Unavailable Kacey Gonzalez MD Primary Care Provider [phone] [phone] Encounter Details Date Type Department Care Team (Late st Contact Info) Description 11/19/2022 Telephone [facility] Orthopaedic Surgery [address] [place] [address] [place] [address] [place] [address] Social History Tobacco Use Types Packs/Day Years Used Date Smoking Tobacco: Never Smokeless Tobacco: Never PHQ-2 Answer Date Recorded PHQ-2 Total Score (If total score is 3 or more points, staff should administer the PHQ-9) 0 04/20/2022 Comments No Sex and Gender Information Value Date Recorded Sex Assigned at Not on file Legal Sex Female 10:19 PM OPTIMIZATION ENGINEER Gender Identity Not on file Sexual Orientation Not on file documented as of this encounter Miscellaneous Notes * Telephone Encounter - Joanne Burnham RMA - 11/22/2022 8:17 AM OPTIMIZATION ENGINEER Karen reports that she has noticed some [...] move forward with a spine surgical consult. MIZATION ENGINEER * Telephone Encounter - Richar Verma MD - 11/19/2022 7:02 PM OPTIMIZATION ENGINEER She may still have some additional improvement [...] see a spine surgeonto discuss potential microdiskectomy. MIZATION ENGINEER * Telephone Encounter - Claudia Mccullough CPhT - 11/19/2022 11:43 AM OPTIMIZATION ENGINEER Pt patient is requesting a call for the next steps.Pt is a little better. But, there are thing she still can not do. Pt wanting to know should we be scheduling next inj or what. Pain is 8-9 Pt is noticing numbness and tingling - right leg to toes. MIZATION ENGINEER MIZATION ENGINEER documented in this encounter Plan of Treatment Not on file documented as of this encounter Visit Diagnoses Not on filedocumented in this encounter Care Teams Instrumental Teacher Relationship Specialty Start Date End Date Kacey Gonzalez MD PCP - General Family Medicine 04/07/21 06/08/23 Kristen Mancera MD Medical Oncologist/Ingot Header Medical Oncology 11/21/20 documented as of this encounter
--- OUTSIDE RECORDS SUMMARY | 2024-10-06 11:18 | XMS_ITS | Encounter Summary ---
Author Organization [facility] Address [address] [place] [address] Phone Care Team Providers Care Equine Internship Name Role Phone Kristen Mancera MD Unavailable Kacey Gonzalez MD Primary Care Provider [phone] [phone] Lewis Sunshine MD Unavailable [phone]- [phone] Encounter Details Date Type Department Care Team (Late st Contact Info) Description 02/02/2023 Telephone [facility] Bone Marrow Transplant [address] [facility] 7th Floor, [place] [address] Vita Hunter, RN Social History [...] file Legal Sex Female 10:19 PM MEDICAL STAFF COORDINATOR Gender Identity Not on file Sexual Orientation [...] on filedocumented in this encounter Care Teams Equine Internship Relationship Specialty Start Date End Date Kacey Gonzalez MD PCP - General Family Medicine 04/07/21 06/08/23 Kristen Mancera MD Medical Oncologist/Literary Writer Medical Oncology 11/21/20 Lewis Sunshine MD [address] [address] Surgeon Orthopedic Surgery 01/05/23 documented as of this encounter
--- OUTSIDE RECORDS SUMMARY | 2024-10-06 11:18 | XMS_ITS | Encounter Summary ---
Author Organization [facility] Healthcare Address [address] [place] [address] Care Team Providers Care Amusement Machine Mechanic Name Role Phone Kristen Mancera MD Unavailable Kacey Gonzalez MD Primary Care Provider [phone] [phone] Lewis Sunshine MD Unavailable [phone]- [phone] Encounter Details Date Type Department Care Team (Latest Contact Info) Description 01/14/2023 12:47 PM CDT - 01/14/2023 11:59 PM CDT Hospital Encounter [facility] [place] [facility] [address] [place] [address] Discharge Disposition: Discharge to home or self [...] on file Legal Sex Female 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 Gender Identity Not on file Sexual Orientation Not on file documented as of this encounter Medications at Time of Discharge levonorgestrel (MIRENA) IUDIndications:Abn ormal Uterine Bleeding, Contraception 1 each by intrauterine route once 02/22/2014 multivitamin capsuleIndications :Vitamin Deficiency Prevention Take 1 capsule by mouth director of community life before breakfast acetaminophen (TYLENOL) 500 mg tabletIndications: [...] on filedocumented in this encounter Care Teams Amusement Machine Mechanic Relationship Specialty Start Date End Date Kacey Gonzalez MD PCP - General Family Medicine 04/07/21 06/08/23 Kristen Mancera MD Medical Oncologist/Boot And Shoe Laborer Medical Oncology 11/21/20 Lewis Sunshine MD [address] [address] Surgeon Orthopedic Surgery 01/05/23 documented as of this encounter
--- OUTSIDE RECORDS SUMMARY | 2024-10-06 11:18 | XMS_ITS | Encounter Summary ---
Author Organization [facility] Healthcare Address [address] [place] [address] Care Team Providers Care Mathematics Technician Name Role Phone Kristen Mancera MD Unavailable Kacey Gonzalez MD Primary Care Provider [phone] [phone] Reason for Referral * Diagnostic Imaging (Routine) - Closed Specialty Diagnoses / Procedures Referred By Contac t Referred To Contact Radiology Diagnoses Lumbar back pain with radiculopathy affecting left lower extremity Procedures IR Transforaminal Epidural Injection Lumbar Sacral 1 [place] [address] [place] [address] Phone: tel: fax: [address] [address] Referral ID Status Reason Start Date Expiration Date Visits Re quested Visits Authorized [id number] Closed 11/08/2022 12/08/2023 1 1 LE HYPERION CONSULTANT Reason for Visit * Diagnostic Imaging (Routine) - Closed Specialty Diagnoses / Procedures Referred By Contac t Referred To Contact Radiology Diagnoses Lumbar back pain with radiculopathy affecting left lower extremity Procedures IR Transforaminal Epidural Injection Lumbar Sacral 1 [place] [address] [place] [address] Phone: tel: fax: [facility] [address] [place] [address] Referral ID Status Reason Start Date Expiration Date Visits Re quested Visits Authorized [id number] Closed 11/08/2022 12/08/2023 1 1 Encounter Details Date Type Department Care Team (Latest Contact Info) Description 11/12/2022 10:47 AM ORACLE HYPERION CONSULTANT - 11/12/2022 11:59 PM ORACLE HYPERION CONSULTANT Hospital Encounter [facility] [address] [place] [address] [place] [address] [place] [address] Lumbar back pain with radiculopathy affecting left [...] on file Legal Sex Female 10:19 PM ORACLE HYPERION CONSULTANT Gender Identity Not on file Sexual Orientation Not on file documented as of this encounter Last Filed Vital Signs Vital Sign Reading Time Taken Comments Blood Pressure 141/77 11/12/2022 11:32 AM ORACLE HYPERION CONSULTANT Pulse 78 11/12/2022 11:32 AM ORACLE HYPERION CONSULTANT Temperature - - Respiratory Rate 16 11/12/2022 11:32 AM ORACLE HYPERION CONSULTANT Oxygen Saturation 97% 11/12/2022 11:32 AM ORACLE HYPERION CONSULTANT Inhaled Oxygen Concentration - - Weight - - Height - - Body Mass Index - - documented in this encounter Discharge Instructions * Patient Instructions* Richar Verma MD - 11/12/2022 11:20 AM ORACLE HYPERION CONSULTANT Post Procedure Instructions You received an epidural [...] those with type I diabetes. Check fasting (early childhood educator aide prior to first meal of the day) [...] concerns after hours, call our exchange at [phone]. For all other questions regarding the procedure, please call our office at [phone]. Pain Diary Please fill out the pain diary chart below and call or message via Blackstrap to Dr. Verma in two weeks. By [...] weeks after? 0% 20% 50% 80% 100% LE HYPERION CONSULTANT documented in this encounter Medications at Time [...] CST Left S1 Transforaminal Epidural Steroid Injection [facility] Department of Orthopedic Surgery Division of Physical [...] the entire procedure above. Richar Verma MD LE HYPERION CONSULTANT documented in this encounter Plan of Treatment Not on file documented as of this encounter Procedures Procedure Name Priority Date/Time Associated Diagnosis Comments TRANSFORAMINAL EPIDURAL INJECTION LUMBAR SACRAL 1 LEVEL LEFT Schedule Routine, Read Routine (OP Routine) 11/12/2022 11:25 AM ORACLE HYPERION CONSULTANT Lumbar back pain with radiculopathy affecting left lower extremity documented in this encounter Results * IR Transforaminal Epidural Injection Lumbar Sacral 1 Level Left (11/12/2022 11:25 AM ORACLE HYPERION CONSULTANT) Narrative [id number] - 11/12/2022 11:25 AM ORACLE HYPERION CONSULTANT The images from this study are not [...] at 1123, Intra-Op Given 11/12/2022 11:23 AM ORACLE HYPERION CONSULTANT 10 mg iohexoL (OMNIPAQUE) 300 mg iodine/mL injection solution As needed, Starting on 11/12/22 at 1123, Intra-Op Given 11/12/2022 11:23 AM ORACLE HYPERION CONSULTANT 0.5 mL lidocaine PF (XYLOCAINE) 10 mg/mL (1 %) preservative free injection As needed, Starting on Tue11/12/22 at 1123, Intra-Procedure (IR), Indications: Administration of Local AnesthesiaIndications:Administrat ion of Local Anesthesia Given 11/12/2022 11:23 AM ORACLE HYPERION CONSULTANT 3 mL documented in this encounter Care Teams Mathematics Technician Relationship Specialty Start Date End Date Kacey Gonzalez MD PCP - General Family Medicine 04/07/21 06/08/23 Kristen Mancera MD Medical Oncologist/Code Enforcement Officer Medical Oncology 11/21/20 documented as of this encounter
--- OUTSIDE RECORDS SUMMARY | 2024-10-06 11:18 | XMS_ITS | Encounter Summary ---
Author Organization [facility] Address [address] [place] [address] Phone Care Team Providers Care Corrections Nurse Name Role Phone Kristen Mancera MD Unavailable Kacey Gonzalez MD Primary Care Provider [phone] [phone] Lewis Sunshine MD Unavailable +1- [phone] Reason for Visit * Reason Onset Date Comments Prior Auth 01/07/2023 Encounter Details Date Type Department Care Team (Late st Contact Info) Description 01/07/2023 Telephone [facility] Orthopaedic Surgery [address] 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
--- OUTSIDE RECORDS SUMMARY | 2024-10-06 11:18 | XMS_ITS | Encounter Summary ---
Author Organization [facility] Healthcare Address [address] [place] [address] Care Team Providers Care Machinist First Class Name Role Phone Kristen Mancera MD Unavailable Kacey Gonzalez MD Primary Care Provider [phone] [phone] Lewis Sunshine MD Unavailable +1- [phone] Reason for Visit * Auth/Cert (Routine) Specialty Diagnoses / Procedures Referred By Contac t Referred To Contact Diagnoses Lumbar disc herniation with radiculopathy Lumbar disc herniation with radiculopathy [M51.16] Procedures [place] ARTHRODESIS POSTERIOR INTERBODY 1 NTRSPC LUMBAR DISCECTOMY - LUMBAR- LEFT L5-S1 Discectomy Posterior Lumbar Spine Referral ID Status Reason Start Date Expiration Date Visits Re quested Visits Authorized [id number] 1 1 Encounter Details Date Type Department Care Team (Latest Contact Info) Description 01/11/2023 5:54 AM CDT - 01/11/2023 12:08 PM CDT Hospital Encounter 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 * [facility] TO EXCELLENT [facility] AFTER SURGERY * Skin Adhesive Care (Discharge Care) (Mexican) documented in this encounter Medications at Time of Discharge levonorgestrel (MIRENA) IUDIndications:Abn ormal Uterine Bleeding, Contraception 1 each by intrauterine route once 02/22/2014 multivitamin capsuleIndications :Vitamin Deficiency Prevention Take 1 capsule by mouth engine buildup mechanic before breakfast acetaminophen (TYLENOL) 500 mg tabletIndications: [...] extension 5/5 5/5 Wrist flexion 5/5 5/5 Egg Buyer 5/5 5/5 Interosseous of hand 5/5 5/5 [...] AM CDT Source Note - Angeles Meza, DIE SINKER APPRENTICE - 01/05/2023 9:41 AM CDT Images from the original note were not included. [facility] Preoperative Assessment and Planning Preoperative Evaluation Record Evaluation type/location: [facility] Planned procedure site: [facility] (Pods 2[facility]3/5/[facility]) Date: 01/05/23 Anesthesia Evaluation Karen Medeiros [...] Operative Report Surgeon Lewis Sunshine MD, MS Design Eng(s) Mainor Faria MD Anesthesia General endotracheal. Preoperative [...] visualized the disc herniation. I used a Nordland 4 to widen the obvioushernia defect and [...] on Discharge Stable. Lewis Sunshine M.D., M.S. Belt Builder Orthopaedic and Neurological Surgery [facility] [place], [place] Operative Report dictated by Lewis Sunshine MD, MS. on 01/11/23 using Fluency Direct. Urban Planner variances may occur. documented in this encounter [...] med 0612 (Given - Provid er: Jennifer sEcobar RN) oxyCODONE (ROXICODONE) tablet 5 mg (COMPLETED) [...] Jennifer Escobar RN)0727 (Rate/Dose Verify - Provider: Nikkei Ruth CRNA)0947 (Paused - Provider: Nikkie Ruth [...] 01/11/2023 documented in this encounter Care Teams Machinist First Class Relationship Specialty Start Date End Date Kacey Gonzalez MD PCP - General Family Medicine 04/07/21 06/08/23 Kristen Mancera MD Medical Oncologist/Printing Specialist Medical Oncology 11/21/20 Lewis Sunshine MD [address] [address] Surgeon Orthopedic Surgery 01/05/23 documented as of this encounter
--- OUTSIDE RECORDS SUMMARY | 2024-10-06 11:18 | XMS_ITS | Encounter Summary ---
Author Organization [facility] Address [address] [place] [address] Phone Care Team Providers Care Pharmacy District Manager Name Role Phone Kristen Mancera MD Unavailable Kacey Gonzalez MD Primary Care Provider [phone] [phone] Lewis Sunshine MD Unavailable +1- [phone] Encounter Details Date Type Department Care Team (Late st Contact Info) Description 01/12/2023 Telephone [facility] Bone Marrow Transplant [address] [facility] 7th Floor, [place] [address] Kristen Mancera MD [address] DIV IM BONE MARROW TRANSPLANT, [address] [place] [address] Social History Tobacco Use Types [...] on file Legal Sex Female 10: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
--- OUTSIDE RECORDS SUMMARY | 2024-10-06 11:18 | XMS_ITS | Encounter Summary ---
Author Organization [facility] Healthcare Address [address] [place] [address] Care Team Providers Care Cv/Cvn Cv Tsc System Operator Name Role Phone Kristen Mancera MD Unavailable Kacey Gonzalez MD Primary Care Provider [phone] [phone] Reason for Referral * Diagnostic Imaging (Routine) - Closed Specialty Diagnoses / Procedures Referred By Contac t Referred To Contact Diagnoses Lumbar spine pain Procedures XR Spine Lumbar 2 [place] [address] [place] [address] Phone: tel: fax: [facility] Referral ID Status Reason Start Date Expiration Date Visits Re quested Visits Authorized [id number] Closed 11/01/2022 12/01/2023 1 1 LA MAN Reason for Visit * Diagnostic Imaging (Routine) - Closed Specialty Diagnoses / Procedures Referred By Contac t Referred To Contact Diagnoses Lumbar spine pain Procedures XR Spine Lumbar 2 [place] [address] [place] [address] Phone: tel: fax: [facility] Referral ID Status Reason Start Date Expiration Date Visits Re quested Visits Authorized [id number] Closed 11/01/2022 12/01/2023 1 1 Encounter Details Date Type Department Care Team (Latest Contact Info) Description 11/01/2022 1:23 PM CUPOLA MAN - 11/01/2022 11:59 PM CUPOLA MAN Hospital Encounter [facility] the [facility] [address] [place] [address] Lumbar spine pain Discharge Disposition: Discharge to [...] on file Legal Sex Female 10:19 PM CUPOLA MAN Gender Identity Not on file Sexual Orientation [...] Read Routine (OP Routine) 11/01/2022 1:31 PM CUPOLA MAN Lumbar spine pain documented in this encounter Results * XR Spine Lumbar 2 or 3 Views (11/01/2022 1:31 PM CUPOLA MAN) Anatomical Region Laterality Modality Spine N/A Computed Radiogr aphy 11/01/2022 1:36 PM CUPOLA MAN Impressions 11/01/2022 1:36 PM CUPOLA MAN 1. Minimal stepwise retrolisthesis of L1-L3. Disc heights are preserved. Electronically signed by: Rodrigo Tarango MD Narrative 11/01/2022 1:36 PM CUPOLA MAN EXAM: 1. ??XR SPINE LUMBAR 2 OR [...] pain documented in this encounter Care Teams Cv/Cvn Cv Tsc System Operator Relationship Specialty Start Date End Date Kacey Gonzalez MD PCP - General Family Medicine 04/07/21 06/08/23 Kristen Mancera MD Medical Oncologist/Newspaper Illustrator Medical Oncology 11/21/20 documented as of this encounter
--- OUTSIDE RECORDS SUMMARY | 2024-10-06 11:18 | XMS_ITS | Encounter Summary ---
Author Organization [facility] Address [address] [place] [address] Phone Care Team Providers Care Karate Teacher Name Role Phone Kristen Mancera MD Unavailable Kacey Gonzalez MD Primary Care Provider [phone] [phone] Reason for Referral * Consultation (Routine) - Closed Specialty Diagnoses / Procedures Referred By Wilfred t Referred To Contact Orthopedic Surgery Diagnoses DDD (degenerative disc disease), lumbosacral Protrusion of intervertebral disc of lumbosacral region Radicular [place] [address] [place] [address] Phone: tel: fax: [facility] (All Locations) Referral ID Status Reason Start Date Expiration Date V isits Requested Visits Authorized [id number] Closed Specialty Services Required 11/22/2022 12/22/2023 1 1 Question Answer Please select the performing region: [facility] (All Locations) [167] # of visits: 1 Comments Discuss potential microdiskectomy. Radicular pain and symptoms, No improvement with TESI (Left S1) Mild degenerative changes of the lumbar spine. A superimposed left subarticular disc protrusion at L5-S1 asymmetrically encroaches on the descending left S1 nerve root. Correlation for symptoms of a left S1 radiculopathy is recommended. CARE BILLER Encounter Details Date Type Department Care Team (Late st Contact Info) Description 11/22/2022 Orders Only [facility] Orthopaedic Surgery [address] [facility] [address] [place] [address] [place] [address] [place] [address] DDD (degenerative disc disease), lumbosacral (Primary Dx); [...] on file Legal Sex Female 10:19 PM MEDICARE BILLER Gender Identity Not on file Sexual Orientation [...] extremity documented in this encounter Care Teams Karate Teacher Relationship Specialty Start Date End Date Kacey Gonzalez MD PCP - General Family Medicine 04/07/21 06/08/23 Kristen Mancera MD Medical Oncologist/Game Programmer Medical Oncology 11/21/20 documented as of this encounter
--- OUTSIDE RECORDS SUMMARY | 2024-10-06 11:18 | XMS_ITS | Encounter Summary ---
Author Organization [facility] Address [address] [place] [address] Care Team Providers Care Thermodynamic Physicist Name Role Phone Kristen Mancera MD Unavailable Kacey Gonzalez MD Primary Care Provider [phone] [phone] Lewis Sunshine MD Unavailable [phone]- [phone] Reason for Visit * Auth/Cert (Routine) Specialty Diagnoses / Procedures Referred By Contac t Referred To Contact Diagnoses Lumbar disc herniation with radiculopathy Lumbar disc herniation with radiculopathy [M51.16] Procedures NE ARTHRODESIS POSTERIOR INTERBODY 1 NTRSPC LUMBAR DISCECTOMY - LUMBAR- LEFT L5-S1 Discectomy Posterior Lumbar Spine Referral ID Status Reason Start Date Expiration Date Visits Re quested Visits Authorized [id number] 1 1 Encounter Details Date Type Department Care Team (Late st Contact Info) Description 01/11/2023 7:30 AM CDT - 01/11/2023 11:05 AM CDT Surgery [facility] Operating Room [address] [place] [address] Lewis Sunshine MD [address] [facility] [address] [place] [address] DISCECTOMY - LUMBAR- LEFT L5-S1 Discectomy Posterior [...] on file Legal Sex Female 10: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 * [facility] PATHWAY TO EXCELLENT CARE AFTER SURGERY * Skin Adhesive Care (Discharge Care) (French) documented in this encounter Medications at Time of Discharge levonorgestrel (MIRENA) IUDIndications:Abn ormal Uterine Bleeding, Contraception 1 each by intrauterine route once 02/22/2014 multivitamin capsuleIndications :Vitamin Deficiency Prevention Take 1 capsule by mouth scanning manager before breakfast acetaminophen (TYLENOL) 500 mg [...] extension 5/5 5/5 Wrist flexion 5/5 5/5 Gear Inspector 5/5 5/5 Interosseous of hand 5/5 5/5 [...] AM CDT Source Note - Angeles Meza, CORRUGATED FASTENER DRIVER - 01/05/2023 9:41 AM CDT Images from the original note were not included. Center for Preoperative Assessment and Planning Preoperative Evaluation Record Evaluation type/location: [facility] Planned procedure site: [facility] (Pods 2/3/5/ZOOLOGY TEACHER) Date: 01/05/23 Anesthesia Evaluation Karen Medeiros is [...] Operative Report Surgeon Lewis Sunshine MD, MS Medical Records Technician(s) Mainor Faria MD Anesthesia General endotracheal. Preoperative [...] visualized the disc herniation. I used a [place] 4 to widen the obvioushernia defect and [...] on Discharge Stable. Lewis Sunshine M.D., M.S. Motel Clerk Orthopaedic and Neurological Surgery [facility] [place], [place] Operative Report dictated by Lewis Sunshine MD, MS. on 01/11/23 using Fluency Direct. Residential Framing Carpenter variances may occur. documented in this encounter [...] 01/11/2023 documented in this encounter Care Teams Thermodynamic Physicist Relationship Specialty Start Date End Date Kacey Gonzalez MD PCP - General Family Medicine 04/07/21 06/08/23 Kristen Mancera MD Medical Oncologist/Packager Medical Oncology 11/21/20 Lewis Sunshine MD [address] [address] Surgeon Orthopedic Surgery 01/05/23 documented as of this encounter
--- OUTSIDE RECORDS SUMMARY | 2024-10-06 11:18 | XMS_ITS | Encounter Summary ---
Author Organization [facility] Address [address] [place] [address] Phone Care Team Providers Care Art Objects Salesperson Name Role Phone Kristen Mancera MD Unavailable Kacey Gonzalez MD Primary Care Provider [phone] [phone] Encounter Details Date Type Department Care Team (Late st Contact Info) Description 12/31/2022 Documentation [facility] [address] [facility] 7th Floor, [place] [address] Vita [place], RN Social History Tobacco Use Types Packs/Day Years Used Date Smoking Tobacco: Never Smokeless Tobacco: Never PHQ-2 Answer Date Recorded PHQ-2 Total Score (If total score is 3 or more points, staff should administer the PHQ-9) 0 04/20/2022 Comments No Sex and Gender Information Value Date Recorded Sex Assigned at Not on file Legal 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 Last CBC from 07/2022 shows WBC 2.5 and ANC 600. Will repeat CBC on 01/03 at [facility]. If still neutropenic will start Zarxio 3 times weekly leading up to the surgery. Zarxio plan entered. documented in this encounter Plan of Treatment Not on file documented as of this encounter Visit Diagnoses Diagnosis 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CMS/HCC) (HCC)- Primary Cyclic neutropenia documented in this encounter Care Teams Art Objects Salesperson Relationship Specialty Start Date End Date Kacey Gonzalez MD PCP - General Family Medicine 04/07/21 06/08/23 Kristen Mancera MD Medical Oncologist/Pole Cutter Medical Oncology 11/21/20 documented as of this encounter
--- OUTSIDE RECORDS SUMMARY | 2024-10-06 11:18 | XMS_ITS | Encounter Summary ---
Author Organization [facility] Address [address] [place] [address] Phone Care Team Providers Care Cash Room Clerk Name Role Phone Kristen Mancera MD Unavailable Kacey Gonzalez MD Primary Care Provider [phone] [phone] Reason for Referral * Diagnostic Imaging (Routine) - Closed Specialty Diagnoses / Procedures Referred By Contac t Referred To Contact Radiology Diagnoses Lumbar back pain with radiculopathy affecting left lower extremity Procedures IR Transforaminal Epidural Injection Lumbar Sacral 1 [place] [address] [place] [address] Phone: tel: fax: [address] [address] Referral ID Status Reason Start Date Expiration Date Visits Re quested Visits Authorized [id number] Closed 11/08/2022 12/08/2023 1 1 E MAKER Encounter Details Date Type Department Care Team (Late st Contact Info) Description 11/08/2022 Orders Only [facility] Orth[facility] [address] [facility] 1st Floor [address] [place] [address] [place] [address] [place], [place] [id number] Lumbar back pain with radiculopathy affecting left [...] on file Legal Sex Female 10:19 PM FLUME MAKER Gender Identity Not on file Sexual Orientation Not on file documented as of this encounter Plan of Treatment Not on file documented as of this encounter Results * IR Transforaminal Epidural Injection Lumbar Sacral 1 Level Left (11/12/2022 11:25 AM FLUME MAKER) Narrative [facility] - 11/12/2022 11:25 AM FLUME MAKER The images from this study are not interpreted by Radiology. ??Please refer to the physician's procedure / OR operative note. Nelsy RODRIGUES IMG IR PROCEDURES Final Res ult [facility] documented in this encounter Visit Diagnoses Diagnosis Lumbar back pain with radiculopathy affecting left lower extremity- Primary Lumbar back pain with radiculopathy affecting left lower extremity- Primary documented in this encounter Care Teams Cash Room Clerk Relationship Specialty Start Date End Date Kacey Gonzalez MD PCP - General Family Medicine 04/07/21 06/08/23 Kristen Mancera MD Medical Oncologist/Assistant Professor Nurse Education Medical Oncology 11/21/20 documented as of this encounter
--- OUTSIDE RECORDS SUMMARY | 2024-10-06 11:18 | XMS_ITS | Encounter Summary ---
Author Organization 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 [M51.16] Procedures CO ARTHRODESIS POSTERIOR INTERBODY 1 NTRSPC LUMBAR DISCECTOMY - LUMBAR- LEFT L5-S1 Discectomy Posterior Lumbar Spine Referral ID Status Reason Start Date Expiration Date Visits Re quested Visits Authorized [id number] 1 1 Encounter Details Date Type Department Care Team (Late st Contact Info) Description 01/11/2023 7:27 AM CDT Anesthesia Event [facility] Operating Room 1 [place] [address] Michael Azar MD PhD [address] [place] [address] Iris Kirk, DERICK [address] [facility] [phone] [place] [address] Anesthesia Record Procedure Summary Procedure Name Responsible [...] lower back; 09/11/24 (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, 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/Completed by Ping Communication with LDA Utility); 1213 (Retired LDA, Removed/Completed by Ping Communication with LDA Utility) 01/11/23 0846 by Jayy [...] on file 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 Gender Identity Not on file Sexual Orientation Not on file documented as of this encounter OR Notes * Anesthesia Postprocedure Evaluation - Brittani Álvarez MD PhD - 01/11/2023 11:25 AM CDT Patient: Karen Medeiros Procedure Summary Date: 01/11/23 Room / Location: [facility] OR POD 5 ROOM 233 / [facility] OR POD 5 Anesthesia Start: [...] Catheter Patient location: OR Staff: Placed by: RN ORTHOPAEDIC: Nikkie Ruth CRNA Preprocedure prep: Prep solution: [...] provider: Michael Azar MD PhD Placed by: RN ORTHOPAEDIC: Nikkie Ruth CRNA Emergent airway documentation: Risks [...] Planning Preoperative Evaluation Record Evaluation type/location: CPAP [facility] Planned procedure site: [facility] (Pods 2/3/5/[facility]) Date: 01/05/23 Anesthesia Evaluation Karen Medeiros [...] Medication protocol when under care of a RN ORTHOPAEDIC Planned anesthesia: General Team communication plan: oral ET tube Induction: Induction: intravenous. Postoperative Plan: Postoperative administration opioids intended. No postoperative mechanical ventilation intended. Patient's planned disposition post procedure is Floor. Planned trial extubation. Informed Consent: Discussed plan with RN ORTHOPAEDIC. Anesthesia plan and risks discussed with patient, spouse and mother. Plan and Consent Comments: Risks and benefits of GETA d/w patient and family by RN ORTHOPAEDIC and myself, including rare complications but not limited to, PONV, pneumonia, bleeding, recalls, blindness, pneumonia, DC, PE/VAE, CVA, paralyzed, left intubated to ICU, [...] Procedure Name Priority Date/Time Associated Diagnosis Comments CO AN PROCEDURE PLACEHOLDER Routine 01/11/2023 8:50 AM CDT CO AN PROCEDURE PLACEHOLDER Routine 01/11/2023 8:32 AM CDT CO AN ELECTIVE ENDOTRACHEAL AIRWAY Routine 01/11/2023 8:32 AM CDT documented in this encounter Results * CO AN PROCEDURE PLACEHOLDER (01/11/2023 8:50 AM CDT) Narrative Nikkie Ruth CRNA - 01/11/2023 8:50 AM CDT Nikkie Ruth CRNA ? 01/11/2023 ??8:51 AM Peripheral IV Catheter Patient location: OR Staff: Placed by: RN ORTHOPAEDIC: Nikkie Ruth CRNA Preprocedure prep: Prep solution: alcohol PPE: gloves and provider hat/mask PIV line: Laterality: left Site: hand Catheter size: 18 g Technique: anatomical landmarks and direct visualization Procedure details: good blood return and occlusive dressing applied Number of attempts: 1 Assessment: Events: patient tolerated procedure well with no complications us Michael Azar MD PhD ANESTHESIA ORDERABLES Final Result * CO AN ELECTIVE ENDOTRACHEAL AIRWAY, CO AN PROCEDURE PLACEHOLDER (01/11/2023 8:32 AM CDT) Narrative Nikkie Ruth CRNA - 01/11/2023 8:32 AM CDT Nikkie Ruth CRNA ? 01/11/2023 ??8:33 AM Airway Patient location: OR Urgency: elective Indications for airway management: anesthesia Difficult airway: no Staff: Supervising provider: Michael Azar MD PhD Placed by: RN ORTHOPAEDIC: Nikkie Ruth CRNA Emergent airway documentation: Risks [...] mg documented in this encounter Care Teams Nail Technician Relationship Specialty Start Date End Date Kacey Gonzalez MD PCP - General Family Medicine 04/07/21 06/08/23 Kristen Mancera MD Medical Oncologist/Sfdc Architect Medical Oncology 11/21/20 Lewis Sunshine MD [address] [address] Surgeon Orthopedic Surgery 01/05/23 documented as of this encounter
--- OUTSIDE RECORDS SUMMARY | 2024-10-06 11:18 | XMS_ITS | Encounter Summary ---
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 Gender Identity Not on file Sexual [...] K/cumm [facility] Comment:Testing performed by : [facility], [address] [place] [phone] Lymphocyte abs 1.6 1.2 - 3.3 K/cumm [facility] Comment:Testing performed by : [facility], [address] [place] [phone] Monocyte abs 0.5 0.2 - 1.2 K/cumm [facility] Comment:Testing performed by : [facility], [address] [place] [phone] Eosinophil abs 0.3 0.0 - 0.5 K/cumm [facility] Comment:Testing performed by : [facility], [address] [place] [phone] Basophil abs 0.1 0.0 - 0.2 K/cumm [facility] Comment:Testing performed by : [facility], [address] [place] [phone] Neutrophil pct 38.4 % [facility] Comment: Interpretive Data Percent cell count reference ranges are not reported, since discordance with absolute values may lead to misinterpretation of CBC data. Current Interpretive Data was last revised on 2018. Testing performed by: [facility], [address] [place] [phone] Lymphocyte pct 39.3 % [facility] Comment: Interpretive Data Percent cell count reference ranges are not reported, since discordance with absolute values may lead to misinterpretation of CBC data. Current Interpretive Data was last revised on 2018. Testing performed by: [facility], [address] [place] [phone] Monocyte pct 12.1 % [facility] Comment:Testing performed by : [address] [address] Eosinophil pct 7.1 % [facility] Comment:Testing performed by : [facility], [address] [place] [phone] Basophil pct 3.1 % [facility] Comment:Testing performed by : [facility], [address] [place] [phone] Blood 01/03/2023 7:38 AM CDT 01/03/2023 7:40 AM CDT us Kristen Mancera MD LAB BLOOD ORDERABLES Final Resul t [facility] Department of [place] [address] * CBC with auto differential (01/03/2023 7:38 AM CDT) WBC 4.1 3.8 - 9.8 K/cumm JAG YANG Comment:Testing performed by : [facility], [address] [place] [phone] Hgb 13.6 12.1 - 15.1 g/dL JAG [facility] Comment:Testing performed by : [facility], [address] [place] [phone] Hct 40.5 36.1 - 44.3 % [facility]AG [facility] Comment:Testing performed by : [facility], [address] [place] [phone] Plt 302 140 - 440 K/cumm [facility]AG YANG Comment:Testing performed by : [address] [phone] MPV 8.2 6.8 - 10.4 fL JAG YANG Comment:Testing performed by : [facility], [address] [place] [phone] RBC 4.26 3.90 - 5.00 M/cumm JAG YANG Comment:Testing performed by : [address] [phone] MCV 95.0 80.0 - 97.6 fL JAG YANG Comment:Testing performed by : [address] [phone] MCH 31.9 26.7 - 33.7 pg JAG YANG Comment:Testing performed by : [facility], [address] [place] [phone] MCHC 33.6 32.7 - 35.5 g/dL [facility] Comment:Testing performed by : [facility], [address] [place] [phone] RDW CV 12.1 11.8 - 14.6 % [facility] Comment:Testing performed by : [facility], [address] [place] [phone] NRBC abs 0.00 0.00 - 0.01 K/cumm [facility] Comment:Testing performed by : [facility], [address] [place] [phone] Blood 01/03/2023 7:38 AM CDT 01/03/2023 7:40 AM CDT us Kristen Mancera MD LAB BLOOD ORDERABLES Final Resul t [facility] Department [place] [address] documented in this encounter Visit Diagnoses Diagnosis Neutropenia, unspecified type (HCC) documented in this encounter Care Teams Unit Assistant Relationship Specialty Start Date End Date Kacey Gonzalez MD PCP - General Family Medicine 04/07/21 06/08/23 Kristen Mancera MD Medical Oncologist/Cop Breaker Medical Oncology 11/21/20 documented as of this encounter
--- OUTSIDE RECORDS SUMMARY | 2024-10-06 11:18 | XMS_ITS | Encounter Summary ---
Author Organization [facility] Healthcare Address [address] [place] [address] Care Team Providers Care Greenhouse Assistant Name Role Phone Kristen Mancera MD Unavailable Kacey Gonzalez MD Primary Care Provider [phone] Reason for Referral * MRI/CAT/PET Scan (Routine) - Closed Specialty Diagnoses / Procedures Referred By Contac t Referred To Contact Radiology Diagnoses Acute left-sided low back pain with left-sided sciatica Procedures MRI [place]bar [place] [address] [place] [address] Phone: tel: fax: [address] [address] Referral ID Status Reason Start Date Expiration Date Visits Re quested Visits Authorized [id number] Closed 11/02/2022 12/31/2022 1 1 ING COORDINATOR Reason for Visit * MRI/CAT/PET Scan (Routine) - Closed Specialty Diagnoses / Procedures Referred By Contac t Referred To Contact Radiology Diagnoses Acute left-sided low back pain with left-sided sciatica Procedures MRI Lumbar [place] [address] [place] [address] Phone: tel: fax: [address] [place] [address] Referral ID Status Reason Start Date Expiration Date Visits Re quested Visits Authorized [id number] Closed 11/02/2022 12/31/2022 1 1 Encounter Details Date Type Department Care Team (Latest Contact Info) Description 11/05/2022 8:29 AM CASTING COORDINATOR - 11/05/2022 11:59 PM CASTING COORDINATOR Hospital Encounter [facility] [address] [place] [phone] Acute left-sided low back pain with left-sided [...] on file Legal 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 [...] Genevieve Aldrich M.D. Narrative 11/05/2022 10:03 AM CASTING COORDINATOR EXAMINATION: Magnetic resonance imaging (MRI) of the [...] sciatica documented in this encounter Care Teams Greenhouse Assistant Relationship Specialty Start Date End Date Kacey Gonzalez MD PCP - General Family Medicine 04/07/21 06/08/23 Kristen Mancera MD Medical Oncologist/Collar Cutter Medical Oncology 11/21/20 documented as of this encounter
--- OUTSIDE RECORDS SUMMARY | 2024-10-06 11:19 | XMS_ITS | Encounter Summary ---
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
--- OUTSIDE RECORDS SUMMARY | 2024-10-06 11:19 | XMS_ITS | Encounter Summary ---
Author Organization [facility] Address [address] [place] [address] Phone Care Team Providers Care Dog Licenser Name Role Phone Kristen Mancera MD Unavailable Kacey Gonzalez MD Primary Care Provider [phone] Encounter Details Date Type Department Care Team (Late st Contact Info) Description 07/16/2022 11:00 AM CDT Office Visit [facility] Bone Marrow Transplant [address] [facility] Advanced Medicine 7th [place], [place] [address] Kristen Mancera MD [address] IM BONE MARROW TRANSPLANT, [address] [place], [place] [phone] 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 Department [place] [address] * (ABNORMAL) Comprehensive metabolic panel (03/04/2023 10:47 AM CDT) Pathologist [facility] Sodium 137 135 - 145 mmol/L [facility] Comment:Testing performed by : [facility], [address] [place] [phone] Potassium, pl 4.8 3.3 - 4.9 mmol/L [facility] Comment:Testing performed by : [facility], [address] [place] [phone] Chloride 102 97 - 110 mmol/L [facility] Comment:Testing performed by : [facility], [address] [place] [phone] CO2 30 22 - 32 mmol/L [facility] Comment:Testing performed by : [facility], [address] [place] [phone] Anion gap 5 2 - 15 mmol/L [facility] Comment:Testing performed by : [facility], [address] [place] [phone] BUN 12 8 - 25 mg/dL [facility] Comment:Testing performed by : [facility], [address] [place] [phone] Creatinine 0.59(L) 0.60 - 1.10 mg/dL [facility] Comment:Testing performed by : [facility], [address] [place] [phone] Glucose 84 70 - 199 mg/dL [facility] [...] 2022. Testing performed by: [facility], [address] [place] [phone] Calcium 9.7 8.5 - 10.3 mg/dL [facility] Comment:Testing performed by : [facility], [address] [place] [phone] Bilirubin, total 0.4 0.1 - 1.2 mg/dL [facility] Comment:Testing performed by : [address] [phone] Protein, pl 7.0 6.5 - 8.5 g/dL [facility] Comment:Testing performed by : [facility], [address] [place] [phone] Albumin 4.3 3.5 - 5.0 g/dL [facility] Comment:Testing performed by : [address] [phone] Alk phos 40 40 - 130 Units/L [facility] Comment:Testing performed by : [address] [phone] ALT 10 7 - 45 Units/L [facility] Comment:Testing performed by : [facility], [address] [place] [phone] AST 15 10 - 45 Units/L [facility] Comment:Testing performed by : [facility], [address] [place] [phone] Blood 03/04/2023 10:4 7 AM CDT 03/04/2023 10:48 AM CDT us Kristen Mancera MD LAB BLOOD ORDERABLES Final Resul t [facility] [place] [address] * CBC with auto differential (03/04/2023 10:47 AM CDT) WBC 4.4 3.8 - 9.8 K/cumm [facility] Comment:Testing performed by : [facility], [address] [place] [phone] Hgb 13.1 12.1 - 15.1 g/dL [facility] Comment:Testing performed by : [facility], [address] [place] [phone] Hct 39.4 36.1 - 44.3 % [facility] Comment:Testing performed by : [facility], [address] [place] [phone] Plt 272 140 - 440 K/cumm [facility] Comment:Testing performed by : [facility], [address] [place] [phone] MPV 8.2 6.8 - 10.4 fL [facility] Comment:Testing performed by : [address] [phone] RBC 4.21 3.90 - 5.00 M/cumm [facility] Comment:Testing performed by : [address] [address] MCV 93.6 80.0 - 97.6 fL [facility] Comment:Testing performed by : [address] [address] MCH 31.2 26.7 - 33.7 pg [facility] Comment:Testing performed by : [facility], [address] [place] [phone] MCHC 33.3 32.7 - 35.5 g/dL [facility] Comment:Testing performed by : [facility], [address] [place] [phone] RDW CV 12.0 11.8 - 14.6 % [facility] Comment:Testing performed by : [facility], [address] [place] [phone] NRBC abs 0.00 0.00 - 0.01 K/cumm [facility] Comment:Testing performed by : [facility], [address] [place] [phone] Blood 03/04/2023 10:4 7 AM CDT 03/04/2023 10:48 AM CDT Kristen Mancera MD LAB BLOOD ORDERABLES Final Resul t 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
--- OUTSIDE RECORDS SUMMARY | 2024-10-06 11:20 | XMS_ITS | Encounter Summary ---
Author Organization [facility] Address [address] [place] [address] Care Team Providers Care Collision Mechanic Name Role Phone Kristen Mancera MD Unavailable Kacey Gonzalez MD Primary Care Provider [phone] Encounter Details Date Type Department Care Team (Latest Contact Info) Description 06/25/2022 9:32 AM CDT - 06/25/2022 11:59 PM CDT Hospital Encounter [facility] Advanced Medicine [facility] Advanced Medicine ([facility]) [address] [place] [phone] Discharge Disposition: Discharge to home or self [...] on file 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
--- OUTSIDE RECORDS SUMMARY | 2024-10-06 11:20 | XMS_ITS | Encounter Summary ---
Author Organization [facility] Address [address] [facility] [address] [place] [address] Care Team Providers Care Sash Installer Name Role Phone Kristen Mancera MD Unavailable Kacey Gonzalez MD Primary Care Provider [phone] Reason for Visit * Reason Onset Date Comments Med Refill 05/14/2022 Encounter Details Date Type Department Care Team (Late st Contact Info) Description 05/14/2022 Telephone 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 Gender Identity Not on file Sexual Orientation Not on file documented as of this encounter Miscellaneous Notes * Telephone Encounter - Sagrario Shi MA - 05/14/2022 4:27 PM CDT Error documented in this encounter Plan of Treatment Not on file documented as of this encounter Visit Diagnoses Diagnosis Neutropenia, unspecified type (HCC) documented in this encounter Care Teams Sash Installer Relationship Specialty Start Date End Date Kacey Gonzalez MD PCP - General Family Medicine 04/07/21 06/08/23 Kristen Mancera MD Medical Oncologist/Transportation Superintendent Medical Oncology 11/21/20 documented as of this encounter
--- OUTSIDE RECORDS SUMMARY | 2024-10-06 11:20 | XMS_ITS | Encounter Summary ---
Author Organization [facility] Address [address] [place] [address] Phone Care Team Providers Care Warehouse Picker Name Role Phone Kristen Mancera MD Unavailable Kacey Gonzalez MD Primary Care Provider [phone] Encounter Details Date Type Department Care Team (Late st Contact Info) Description 06/24/2022 Telephone [facility] [address] [facility] 7th [place] [address] [place] [address] Ann Woo Social History Tobacco Use Types Packs/Day Years Used Date Smoking Tobacco: Never Smokeless Tobacco: Never PHQ-2 Answer Date Recorded PHQ-2 Total Score (If total score is 3 or more points, staff should administer the PHQ-9) 0 04/20/2022 Comments No Sex and Gender Information Value Date Recorded Sex Assigned at Not on file 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 documented in this encounter Plan of Treatment Not on file documented as of this encounter Visit Diagnoses Not on filedocumented in this encounter Care Teams Warehouse Picker Relationship Specialty Start Date End Date Kacey Gonzalez MD PCP - General Family Medicine 04/07/21 06/08/23 Kristen Mancera MD Medical Oncologist/Building Maintenance Repairer Medical Oncology 11/21/20 documented as of this encounter
--- OUTSIDE RECORDS SUMMARY | 2024-10-06 11:21 | XMS_ITS | Encounter Summary ---
Author Organization [facility] Address [address] [place] [address] Phone Care Team Providers Care Clearance Center Manager Name Role Phone Jesus Alberto Smith MD Primary Care Provider [phone] Kristen Mancera MD Unavailable Encounter Details Date Type Department Care Team (Late st Contact Info) Description 11/21/2020 11:20 AM BARREL MAKER Office Visit [facility] Bone Marrow Transplant [address] [facility] Advanced Medicine 7th Floor, [place] [address] Kristen Mancera MD [address] DIV IM BONE MARROW TRANSPLANT, [address] [place], [place] [id number] Neutropenia, unspecified type (CMS/HCC) (Primary Dx); Neutropenia (CMS/HCC) Social History Tobacco Use Types Packs/Day Years Used Date Smoking Tobacco: Never Smokeless Tobacco: Never Comments Unknown Sex and Gender Information Value Date Recorded Sex Assigned at Not on file Legal Sex Female 10:19 PM BARREL MAKER Gender Identity Not on file Sexual Orientation Not on file documented as of this encounter Last Filed Vital Signs Vital Sign Reading Time Taken Comments Blood Pressure 135/84 11/21/2020 11:14 AM BARREL MAKER Pulse 83 11/21/2020 11:14 AM BARREL MAKER Temperature 36.7 ??C (98 ??F) 11/21/2020 11:14 AM BARREL MAKER Respiratory Rate 16 11/21/2020 11:14 AM BARREL MAKER Oxygen Saturation 97% 11/21/2020 11:14 AM BARREL MAKER Inhaled Oxygen Concentration - - Weight 53.5 kg (118 lb) 11/21/2020 11:14 AM BARREL MAKER Height 157 cm (5' 1.81 ) 11/21/2020 11:14 AM BARREL MAKER Body Mass Index 21.71 11/21/2020 11:14 AM BARREL MAKER documented in this encounter Progress Notes * [...] call us with any questions or concerns. EL MAKER documented in this encounter Nursing Notes * Vita Jones, NADIR - 11/21/2020 11:20 AM CST ROV with Fiordaliza for chronic neutropenia with MTHFR mutation. Continue observation. ROV 6 months. EL MAKER documented in this encounter Plan of Treatment Not on file documented as of this encounter Results * CBC with auto differential (06/26/2021 10:51 AM CDT) WBC 4.0 3.8 - 9.8 K/cumm [facility] Comment:Testing performed by : [facility], [address] [place] [phone] Hgb 13.4 12.1 - 15.1 g/dL [facility] Comment:Testing performed by : [facility], [address] [place] [phone] Hct 39.5 36.1 - 44.3 % [facility] Comment:Testing performed by : [facility], [address] [place] [phone] Plt 231 140 - 440 K/cumm [facility] Comment:Testing performed by : [address] [phone] MPV 8.3 6.8 - 10.4 fL [facility] Comment:Testing performed by : [address] [phone] RBC 4.15 3.90 - 5.00 M/cumm [facility] Comment:Testing performed by : [facility], [address] [place] [phone] MCV 95.3 80.0 - 97.6 fL [facility] Comment:Testing performed by : [facility], [address] [place] [phone] MCH 32.3 26.7 - 33.7 pg [facility] Comment:Testing performed by : [facility], [address] [place] [phone] MCHC 33.9 32.7 - 35.5 g/dL [facility] Comment:Testing performed by : [facility], [address] [place] [phone] RDW CV 12.4 11.8 - 14.6 % [facility] Comment:Testing performed by : [facility], [address] [place], [place] [phone] NRBC abs 0.00 0.00 - 0.01 K/cumm [facility] Comment:Testing performed by : [facility], [address] [place] [phone] Blood 06/26/2021 10:5 1 AM CDT 06/26/2021 10:55 AM CDT us Kristen Mancera MD LAB BLOOD ORDERABLES Final Resul t Performing Organization Address City/[facility]/ZIP Co de Phone Number [facility] [employer] [place] [address] * Lactate dehydrogenase (LD) (06/26/2021 10:51 AM CDT) Lactate dehydrogenase (LDH) 147 100 - 250 Units/L [facility] Comment:Testing performed by : [facility], [address] [place] [phone] Blood 06/26/2021 10:5 1 AM CDT 06/26/2021 10:55 AM CDT us Krsiten Mancera MD LAB BLOOD ORDERABLES Final Resul t Performing Organization Address City/[facility]/ZIP Co de Phone Number [facility] [place] [address] * (ABNORMAL) Comprehensive metabolic panel (06/26/2021 10:51 AM CDT) Sodium 139 135 - 145 mmol/L [facility] Comment:Testing performed by : [facility], [address] [place] [phone] Potassium, pl 4.8 3.3 - 4.9 mmol/L [facility] Comment:Testing performed by : [facility], [address] [place] [phone] Chloride 105 97 - 110 mmol/L [facility] Comment:Testing performed by : [address] [phone] CO2 27 22 - 32 mmol/L [facility] Comment:Testing performed by : [facility], [address] [place] [phone] Anion gap 7 2 - 15 mmol/L [facility] Comment:Testing performed by : [facility], [address] [place] [phone] BUN 9 8 - 25 mg/dL [facility] Comment:Testing performed by : [facility], [address] [place] [phone] Creatinine 0.61 0.60 - 1.10 mg/dL [facility] Comment:Testing performed by : [facility], [address] [place] [phone] Glucose 83 70 - 199 mg/dL [facility] [...] was last revised 2017. Testing performed by: [address] [phone] Calcium 9.6 8.5 - 10.3 mg/dL [facility] Comment:Testing performed by : [facility], [address] [place] [phone] Bilirubin, total 0.5 0.1 - 1.2 mg/dL [facility] Comment:Testing performed by : [facility], [address] [place] [phone] Protein, pl 7.4 6.5 - 8.5 g/dL [facility] Comment:Testing performed by : [facility], [address] [place] [phone] Albumin 4.6 3.5 - 5.0 g/dL [facility] Comment:Testing performed by : [facility], [address] [place] [phone] Alk phos 39(L) 40 - 130 Units/L [facility] Comment:Testing performed by : [facility], [address] [place] [phone] ALT 7 7 - 45 Units/L [facility] Comment:Testing performed by : [facility], [address] [place] [phone] AST 16 10 - 45 Units/L [facility] Comment:Testing performed by : [facility], [address] [place] [phone] Blood 06/26/2021 10:5 1 AM CDT 06/26/2021 10:55 AM CDT us Kristen Mancera MD LAB BLOOD ORDERABLES Final Resul t Performing Organization Address City/State/[facility] Co de Phone Number [facility] Department of Laboratories [place], [place] [phone] documented in this encounter Visit Diagnoses Diagnosis Neutropenia, unspecified type (HCC)- Primary documented in this encounter Orders Appointment Requests Count Last Ordered Date Fi rst Ordered Date ONCBCN CLINIC APPOINTMENT REQUEST 1 021 documented in this encounter Care Teams Clearance Center Manager Relationship Specialty Start Date End Date Jesus Alberto Smith MD PCP - General 11/04/17 04/06/21 Kristen Mancera MD Medical Oncologist/Adjustment Supervisor Medical Oncology 11/21/20 documented as of this encounter
--- OUTSIDE RECORDS SUMMARY | 2024-10-06 11:21 | XMS_ITS | Encounter Summary ---
Author Organization [facility] Address [address] [facility] [address] [place] [address] Care Team Providers Care Boring Machine Operator Vertical Name Role Phone Kristen Mancera MD Unavailable Kacey Gonzalez MD Primary Care Provider [phone] Reason for Referral * Diagnostic Imaging (Routine) [...] Expiration Date Visits Re quested Visits Authorized [id number] Closed 04/09/2022 05/09/2023 1 1 * Diagnostic Imaging (Routine) - Closed Specialty Diagnoses / Procedures Referred By Wilfred stewart Referred To Contact Diagnoses Breast pain, left Procedures US Breast Left Limited Taylor Whittington NP Phone: tel: fax: External Order Referral ID Status Reason Start Date Expiration Date Visits Re quested Visits Authorized [id number] Closed 04/09/2022 05/09/2023 1 1 Reason for Visit * Reason Comments Pain in left breast Encounter Details Date Type Department Care Team (Late st Contact Info) Description 04/09/2022 1:30 PM CDT Office Visit [facility] [address] [facility] [address] [address] Taylor Whittington NP [address] [facility] [address] [place] [address] Breast pain, left (Primary Dx) [...] on file Legal Sex Female 10:19 PM CASING CREW PUSHER Gender Identity Not on file Sexual Orientation [...] left documented in this encounter Care Teams Boring Machine Operator Vertical Relationship Specialty Start Date End Date Kacey Gonzalez MD PCP - General Family Medicine 04/07/21 06/08/23 Kristen Mancera MD Medical Oncologist/Conference Planner Medical Oncology 11/21/20 documented as of this encounter
--- OUTSIDE RECORDS SUMMARY | 2024-10-06 11:21 | XMS_ITS | Encounter Summary ---
Author Organization [facility] Address [address] [place] [address] Phone Care Team Providers Care Media Consultant Name Role Phone Jesus Alberto Smith MD Primary Care Provider [phone] Reason for Visit * Oncology (Routine) - Closed Specialty Diagnoses / Procedures Referred By Contac t Referred To Contact Lab Diagnoses Neutropenia, unspecified type (HCC) LAB ONLY Procedures ONCBCN LAB APPOINTMENT ARM DRAW Kristen Mancera MD [address] DIV IM BONE MARROW TRANSPLANT, [address] [place] [address] Phone: tel: fax: [facility] 7th [place] [address] [place] [address] Phone: tel: Referral ID Status Reason Start Date Expiration Date V isits Requested Visits Authorized [id number] Closed Specialty Services Required 11/03/2018 05/14/2020 99 99 Encounter Details Date Type Department Care Team (Late st Contact Info) Description 05/04/2019 1:30 PM CDT Lab [facility] [address] [facility] Advanced Medicine 7th [place] [address] [place] [address] Kristen Mancera MD [address] DIV IM BONE MARROW TRANSPLANT, [address] [place] [address] Neutropenia, unspecified type (CMS/HCC) Discharge Disposition: Discharge to home or self care Social History Tobacco Use Types Packs/Day Years Used Date Smoking Tobacco: Never Smokeless Tobacco: Never Comments Unknown Sex and Gender Information Value Date Recorded Sex Assigned at Not on file Legal Sex Female 10:19 PM CORRECTIONAL OFFICER CAPTAIN Gender Identity Not on file Sexual Orientation [...] K/cumm [facility] Comment:Testing performed by : [facility], [address] [place] [phone] Lymphocyte abs 1.3 1.2 - 3.3 K/cumm [facility] Comment:Testing performed by : [facility], [address] [place] [phone] Monocyte abs 0.6 0.2 - 1.2 K/cumm [facility] Comment:Testing performed by : [facility], [address] [place] [phone] Eosinophil abs 0.1 0.0 - 0.5 K/cumm [facility] Comment:Testing performed by : [facility], [address] [place] [phone] Basophil abs 0.1 0.0 - 0.2 K/cumm [facility] Comment:Testing performed by : [facility], [address] [place] [phone] Neutrophil pct 38.7 % JAG YANG Comment: Interpretive Data Percent cell count reference ranges are not reported, since discordance with absolute values may lead to misinterpretation of CBC data. Current Interpretive Data was last revised on 2018. Testing performed by: [facility], [address] [place] [phone] Lymphocyte pct 37.5 % JAG YANG Comment: Interpretive Data Percent cell count reference ranges are not reported, since discordance with absolute values may lead to misinterpretation of CBC data. Current Interpretive Data was last revised on 2018. Testing performed by: [facility], [address] [place] [phone] Monocyte pct 18.0 % JAG YANG Comment:Testing performed by : [facility], [address] [place] [phone] Eosinophil pct 3.7 % JAG YANG Comment:Testing performed by : [facility], [address] [place] [phone] Basophil pct 2.1 % JAG YANG Comment:Testing performed by : [address] [phone] Blood specimen (specimen) 05/04/2019 1:57 PM CDT 05/04/2019 1:59 PM CDT us Kristen Mancera MD LAB BLOOD ORDERABLES Final Resul t JAG [facility] Department [place] [address] * (ABNORMAL) CBC with auto differential (05/04/2019 1:57 PM CDT) WBC 3.5(L) 3.8 - 9.8 K/cumm JAG YANG Comment:Testing performed by : [facility], [address] [place] [phone] Hgb 13.6 12.1 - 15.1 g/dL JAG YANG Comment:Testing performed by : [facility], [address] [place], [place] [phone] Hct 39.8 36.1 - 44.3 % CERNER [facility] Comment:Testing performed by : [facility], [address] [place], [place] [phone] Plt 233 140 - 440 K/cumm CERNER BJ Comment:Testing performed by : [place] [address] MPV 8.5 6.8 - 10.4 fL CERLIZZY BJ Comment:Testing performed by : [facility], [address] [place] [address] RBC 4.28 3.90 - 5.00 M/cumm CERLIZZY BJ Comment:Testing performed by : [place] [address] MCV 93.0 80.0 - 97.6 fL CERLIZZY BJ Comment:Testing performed by : [place] [id number] MCH 31.7 26.7 - 33.7 pg CERNER BJ Comment:Testing performed by : [facility], [address] [place], [place] [phone] MCHC 34.1 32.7 - 35.5 g/dL CERNER BJ Comment:Testing performed by : [place] [address] RDW CV 12.5 11.8 - 14.6 % CERNER BJ Comment:Testing performed by : [address] NRBC abs 0.00 0.00 - 0.01 K/cumm CERLIZZY BJ Comment:Testing performed by : [place] [id number] Blood specimen (specimen) 05/04/2019 1:57 PM CDT 05/04/2019 1:59 PM CDT us Kristen Mancera MD LAB BLOOD ORDERABLES Final Resul t JAG YANG [facility] Department [place] [address] * (ABNORMAL) Comprehensive metabolic panel (05/04/2019 1:56 PM CDT) Sodium 139 135 - 145 mmol/L [facility] LAB BLOOD ORDERABLES Final Resul t [facility] One [facility] Department [place] [address] * Lactate dehydrogenase (LD) (05/04/2019 1:56 PM CDT) Lactate dehydrogenase (LDH) 236 100 - 250 Units/L [facility] Blood specimen (specimen) 05/04/2019 1:56 PM CDT 05/04/2019 2:51 PM CDT us Kristen Mancera MD LAB BLOOD ORDERABLES Final Resul t [facility] One [facility] [place] [address] documented in this encounter Visit Diagnoses Diagnosis Neutropenia, unspecified type (HCC) documented in this encounter Orders Appointment Requests Count Last Ordered Date Fi rst Ordered Date ONCBCN LAB APPOINTMENT 1 05/04/2019 documented in this encounter Care Teams Media Consultant Relationship Specialty Start Date End Date Jesus Alberto Smith MD PCP - General 11/04/17 04/06/21 documented as of this encounter
--- OUTSIDE RECORDS SUMMARY | 2024-10-06 11:21 | XMS_ITS | Encounter Summary ---
Author Organization [facility] Address [address] [facility] [facility] [address] [place] [address] Care Team Providers Care Per Diem Nurse Name Role Phone Kristen Mancera MD Unavailable Kacey Gonzalez MD Primary Care Provider [phone] Reason for Visit * Reason Comments Establish Care Review Medications Encounter Details Date Type Department Care Team (Late st Contact Info) Description 04/07/2021 2:30 PM CDT Office Visit [facility] Medical [facility] [address] [address] Kacey Gonzalez MD [facility] [address] [address] Encounter to establish care (Primary [...] on file Legal Sex Female 10:19 PM 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 Triglycerides 58 <=149 mg/dL [facility] Comment: Interpretive Data Ages < or = [...] revised on 2018. HDL 83 >=40 mg/dL [facility] Comment: Interpretive Data Ages < or = [...] on 2018. LDL, calculated 127 <=129 mg/dL [facility] Comment: Interpretive Data Ages < or = [...] revised on 2018. Non-HDL Cholesterol 139 mg/dL [facility] Comment: Interpretive Data Ages < or = [...] revised on 2018. Chol/HDL ratio 3 JAG [facility] Blood 06/26/2021 10:5 1 AM CDT 06/26/2021 1:30 PM CDT Kacey Gonzalez MD LAB BLOOD ORDERABLES Anat lorri Result [facility] One [facility] Department [place] [address] documented in this encounter Visit Diagnoses Diagnosis [...] 04/07/2021 documented in this encounter Care Teams Per Diem Nurse Relationship Specialty Start Date End Date Kacey Gonzalez MD PCP - General Family Medicine 04/07/21 06/08/23 Kristen Mancera MD Medical Oncologist/Financial Services Technician Medical Oncology 11/21/20 documented as of this encounter
--- OUTSIDE RECORDS SUMMARY | 2024-10-06 11:21 | XMS_ITS | Encounter Summary ---
Author Organization [facility] Healthcare Address [address] [place] [address] Care Team Providers Care Highway Research Engineer Name Role Phone Kristen Mancera MD Unavailable Kacey Gonzalez MD Primary Care Provider [phone] Reason for Referral * Diagnostic Imaging (Routine) - Closed Specialty Diagnoses / Procedures Referred By Wilfred stewart Referred To Contact Diagnoses Breast pain, left Procedures US Breast Left Limited Taylor Whittington NP Phone: tel: fax: External Order Referral ID Status Reason Start Date Expiration Date Visits Re quested Visits Authorized [id number] Closed 04/09/2022 05/09/2023 1 1 Reason for Visit * Diagnostic Imaging (Routine) - Closed Specialty Diagnoses / Procedures Referred By Wilfred stewart Referred To Contact Diagnoses Breast pain, left Procedures US Breast Left Limited Taylor Whittington NP Phone: tel: fax: External Order Referral ID Status Reason Start Date Expiration Date Visits Re quested Visits Authorized [id number] Closed 04/09/2022 05/09/2023 1 1 Encounter Details Date Type Department Care Team (Latest Contact Info) Description 04/28/2022 12:11 PM CDT - 04/28/2022 11:59 PM CDT Hospital Encounter [facility] [address] [address] Breast pain, left Discharge Disposition: [...] on file Legal Sex Female 10:19 PM VALIDATION LEADER Gender Identity Not on file Sexual Orientation [...] left documented in this encounter Care Teams Highway Research Engineer Relationship Specialty Start Date End Date Kacey Gonzalez MD PCP - General Family Medicine 04/07/21 06/08/23 Kristen Mancera MD Medical Oncologist/Continuous Improvement Analyst Medical Oncology 11/21/20 documented as of this encounter
--- OUTSIDE RECORDS SUMMARY | 2024-10-06 11:21 | XMS_ITS | Encounter Summary ---
Author Organization [facility] Address [address] [place] [address] Care Team Providers Care Head Waiter/Waitress Name Role Phone Kristen Mancera MD Unavailable Kacey Gonzalez MD Primary Care Provider [phone] Reason for Visit * Reason Comments Preventative Care Encounter Details Date Type Department Care Team (Late st Contact Info) Description 04/20/2022 1:30 PM CDT Office Visit [facility] [address] [address] Kacey Gonzalez MD [address] [place] [address] Annual physical exam (Primary Dx); Neutropenia, [...] on file Legal Sex Female 10:19 PM GYPSUM BLOCK SETTER Gender Identity Not on file Sexual [...] done with Dr Mancera's labs. Tell the laborer powerhouse to draw both Carlos and Fiordaliza labs. [...] Hx of implants. [facility]. Soonest appt set for 05/2022 No infectious [...] her. 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 Neutropenia q6mo labs and f/u with [facility] Dr Mancera. Stable. Often needs ABx earlier on in infection courses than typical due to this. Insomnia ambien 10mg qhs Screen for colon cancer - Stool DNA - Cologuard; Future - Stool DNA - Cologuard Encounter for vaccination - Varicella-zoster HZV IM [place]'s Skin rash, refilled triamcinolone for redness and [...] LAB BLOOD ORDERABLES Anat blackmon Result [facility] One [facility] Department of Laboratories [place], [place] [id number] * (ABNORMAL) Lipid panel (07/16/2022 10:40 AM [...] on 2018. Triglycerides 42 <=149 mg/dL JAG [facility] Comment: Interpretive Data Ages < or = [...] on 2018. HDL 82 >=40 mg/dL JAG [facility] Comment: Interpretive Data Ages < or = [...] 2018. LDL, calculated 132(H) <=129 mg/dL JAG [facility] Comment: Interpretive Data Ages < or = [...] revised on 2018. Non-HDL Cholesterol 140 mg/dL [facility] MARYVALELIZZY [facility] Comment: Interpretive Data Ages < or = [...] last revised on 2018. Chol/HDL ratio 3 [facility] MARYVALELIZZY [facility] Blood 07/16/2022 10:4 0 AM CDT 07/16/2022 11:33 AM CDT Kacey Gonzalez MD LAB BLOOD ORDERABLES Anat l Result Performing Organization Address City/[facility]/ZIP Co de Phone Number [facility] Department [place] [address] * TSH reflex to free T4 (07/16/2022 10:40 AM CDT) TSH 0.71 0.30 - 4.20 mcIUnit/mL [facility] Blood 07/16/2022 10:4 0 AM CDT 07/16/2022 11:33 AM CDT Kacey Gonzalez MD LAB BLOOD ORDERABLES Anat l Result Performing Organization Address [facility] de Phone Number [facility] Department [place] [address] * Stool DNA - Cologuard (05/05/2022 10:00 AM CDT) Stool DNA - Cologuard Negative Negative [employer] (CLIA #:[id number]) Comment: NEGATIVE TEST RESULT. A negative Cologuard [...] cancer. ??Following a negative Cologuard result, the [place] Cancer Society and U.S. Multi-Society Task Force screening guidelines recommend a Cologuard re-screening interval of 3 years. References: [place] Cancer Society Guideline for Colorectal Cancer Screening: https://www.cancer.org/cancer/zitog-zefgpu-qfmxie/yyefnmwrk-dddlkibva-jkpcofa/ac s-rec ommendations.html.; Doc DK, Shelley DAVILA, Shyam RemyK, Colorectal Cancer Screening: Recommendations for Physicians and Patients from the U.S. Multi-Society Task Force on Colorectal Cancer Screening , Am J Gastroenterology 2017; 112:2168-0829. TEST DESCRIPTION: Composite algorithmic analysis of stool [...] (Aiden Manning al, N Engl J Med 2014;370(14):9376-9450.) Cologuard may produce a false negative or false positive result (no colorectal cancer or precancerous polyp present at colonoscopy follow up). A negative Cologuard test result does not guarantee the absence of CRC or advanced adenoma (pre-cancer). The current Cologuard screening interval is every 3 years. ([place] Cancer Society and U.S. Multi-Society Task Force). Cologuard performance data in a 10,000 patient pivotal study using colonoscopy as the reference method can be accessed at the following location: www.Moviecom.tv.INFOGRAPHIQS/results. Additional description of the Cologuard test process, warnings and precautions can be found at www.BriefCamrd.INFOGRAPHIQS. Stool 05/05/2022 10:0 0 AM CDT 05/06/2022 1:51 PM CDT Kacey Gonzalez MD LAB BODY FLUIDS AND STOOL S ORDERABLES Final Result [facility] [employer] [facility] (CLIA #:[id number]) [address] [place] [address] documented in this encounter Visit Diagnoses Diagnosis [...] 04/20/2022 documented in this encounter Care Teams Head Waiter/Waitress Relationship Specialty Start Date End Date Kacey Gonzalez MD PCP - General Family Medicine 04/07/21 06/08/23 Kristen Mancera MD Medical Oncologist/Stockroom Associate Medical Oncology 11/21/20 documented as of this encounter
--- OUTSIDE RECORDS SUMMARY | 2024-10-06 11:21 | XMS_ITS | Encounter Summary ---
Author Organization [facility] Address [address] [place] [address] Phone Care Team Providers Care Crime Victim Specialist Name Role Phone Kristen Mancera MD Unavailable Kacey Gonzalez MD Primary Care Provider [phone] Encounter Details Date Type Department Care Team (Late st Contact Info) Description 06/26/2021 11:20 AM CDT Office Visit [facility] Marrow Trans[facility] [address] 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 Gender Identity Not on file Sexual [...] K/cumm JAG BJ Comment:Testing performed by : [facility], [address] [place] [phone] Hgb 13.1 12.1 - 15.1 g/dL CERLIZZY BJ Comment:Testing performed by : [address] [address] Hct 39.0 36.1 - 44.3 % CERNER BJ Comment:Testing performed by : [facility], [address] [place] [phone] Plt 224 140 - 440 K/cumm CERLIZZY BJ Comment:Testing performed by : [address] [address] MPV 8.6 6.8 - 10.4 fL CERLIZZY BJ Comment:Testing performed by : [address] [phone] RBC 4.11 3.90 - 5.00 M/cumm CERLIZZY TREY Comment:Testing performed by : [facility], [address] [place] [phone] MCV 95.0 80.0 - 97.6 fL JAG YANG Comment:Testing performed by : [facility], [address] [place] [phone] MCH 31.9 26.7 - 33.7 pg JAG YANG Comment:Testing performed by : [facility], [address] [place] [phone] MCHC 33.6 32.7 - 35.5 g/dL JAG YANG Comment:Testing performed by : [facility], [address] [place] [phone] RDW CV 12.8 11.8 - 14.6 % JAG YANG Comment:Testing performed by : [facility], [address] [place] [phone] NRBC abs 0.00 0.00 - 0.01 K/cumm JAG YANG Comment:Testing performed by : [facility], [address] [place] [phone] Blood 07/16/2022 10:4 0 AM CDT 07/16/2022 10:42 AM CDT us Kristen Mancera MD LAB BLOOD ORDERABLES Final Resul t JAG [facility] One [facility] Department [place] [address] * Comprehensive metabolic panel (07/16/2022 10:40 AM CDT) Sodium 139 135 - 145 mmol/L JAG YANG Comment:Testing performed by : [facility], [address] [place] [phone] Potassium, pl 4.5 3.3 - 4.9 mmol/L JAG YANG Comment:Testing performed by : [facility], [address] [place] [phone] Chloride 103 97 - 110 mmol/L JAG YANG Comment:Testing performed by : [facility], [address] [place] [phone] CO2 28 22 - 32 mmol/L CERNER BJ Comment:Testing performed by : [facility], [address] [place] [phone] Anion gap 8 2 - 15 mmol/L CERNER BJ Comment:Testing performed by : [facility], [address] [place] [phone] BUN 11 8 - 25 mg/dL CERNER BJ Comment:Testing performed by : [facility], [address] [place] [phone] Creatinine 0.61 0.60 - 1.10 mg/dL CERNER BJ Comment:Testing performed by : [facility], [address] [place] [phone] Glucose 84 70 - 199 mg/dL CERNER [...] was last revised 2017. Testing performed by: [facility], [address] [place] [phone] Calcium 9.2 8.5 - 10.3 mg/dL CERNER BJ Comment:Testing performed by : [facility], [address] [place] [phone] Bilirubin, total 0.5 0.1 - 1.2 mg/dL CERNER BJ Comment:Testing performed by : [facility], [address] [place] [phone] Protein, pl 7.5 6.5 - 8.5 g/dL [facility] Comment:Testing performed by : [address] [phone] Albumin 4.6 3.5 - 5.0 g/dL CERNER BJ Comment:Testing performed by : [facility], [address] [place] [phone] Alk phos 43 40 - 130 Units/L [facility] Comment:Testing performed by : [facility], [address] [place] [phone] ALT 13 7 - 45 Units/L [facility] Comment:Testing performed by : [facility], [address] [place] [phone] AST 17 10 - 45 Units/L [facility] Comment:Testing performed by : [facility], [address] [place] [phone] Blood 07/16/2022 10:4 0 AM CDT 07/16/2022 10:42 AM CDT Kristen Mancera MD LAB BLOOD ORDERABLES Final Resul t Performing Organization Address [facility] de Phone Number [facility] [place] [address] * Lactate dehydrogenase (LD) (07/16/2022 10:40 AM CDT) Lactate dehydrogenase (LDH) 120 100 - 250 Units/L [facility] Comment:Testing performed by : [facility], [address] [place] [phone] Blood 07/16/2022 10:4 0 AM CDT 07/16/2022 10:42 AM CDT Kristen Mancera MD LAB BLOOD ORDERABLES Final Resul t Performing Organization Address [facility] de Phone Number [facility] [place] [address] documented in this encounter Visit Diagnoses Diagnosis Homozygous MTHFR mutation C677T- Primary Neutropenia, unspecified type (HCC) documented in this encounter Orders Appointment Requests Count Last Ordered Date Fi rst Ordered Date ONCBCN CLINIC APPOINTMENT REQUEST 1 022 ONCBCN LAB APPOINTMENT 1 07/16/2022 documented in this encounter Care Teams Crime Victim Specialist Relationship Specialty Start Date End Date Kacey Gonzalez MD PCP - General Family Medicine 04/07/21 06/08/23 Kristen Mancera MD Medical Oncologist/Rubber Boots And Shoes Repairer Medical Oncology 11/21/20 documented as of this encounter
--- OUTSIDE RECORDS SUMMARY | 2024-10-06 11:21 | XMS_ITS | Encounter Summary ---
Author Organization [facility] Healthcare Address [address] [place] [address] Care Team Providers Care Bullet Slugs Inspector Name Role Phone Jesus Alberto Smith MD Primary Care Provider [phone] Reason for Referral * Diagnostic Imaging (Routine) - Closed Specialty Diagnoses / Procedures Referred By Wilfred t Referred To Contact Diagnoses Encounter for screening mammogram for malignant neoplasm of breast Procedures Screening Mammogram Bilateral w Niko w Implants Screening Mammogram, Self [facility] [address] [place] [address] Referral ID Status Reason Start Date Expiration Date Visits Re quested Visits Authorized [id number] Closed 05/15/2020 06/14/2021 1 1 Reason for Visit * Diagnostic Imaging (Routine) - Closed Specialty Diagnoses / Procedures Referred By Wilfred t Referred To Contact Diagnoses Encounter for screening mammogram for malignant neoplasm of breast Procedures Screening Mammogram Bilateral w Nkio w Implants Screening Mammogram, Self [facility] [address] [place] [address] Referral ID Status Reason Start Date Expiration Date Visits Re quested Visits Authorized [id number] Closed 05/15/2020 06/14/2021 1 1 Encounter Details Date Type Department Care Team (Latest Contact Info) Description 07/15/2020 11:53 AM CDT - 07/15/2020 11:59 PM CDT Hospital Encounter [facility] Breast [facility] [address] [place] [address] Screening Mammogram, Self Encounter for screening mammogram for malignant neoplasm of breast Discharge Disposition: Discharge to home or self care Social History Tobacco Use Types Packs/Day Years Used Date Smoking Tobacco: Never Smokeless Tobacco: Never Comments Unknown Sex and Gender Information Value Date Recorded Sex Assigned at Not on file 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 The breasts [...] compared to prior imaging studies performed at [facility] on 02/15/2014, 11/19/2016 and 11/17/2018. The breasts [...] breast documented in this encounter Care Teams Bullet Slugs Inspector Relationship Specialty Start Date End Date Jesus Alberto Smith MD PCP - General 11/04/17 04/06/21 documented as of this encounter
--- OUTSIDE RECORDS SUMMARY | 2024-10-06 11:21 | XMS_ITS | Encounter Summary ---
Author Organization [facility] Address [address] [place] [address] Phone Care Team Providers Care Gearman Name Role Phone Jesus Alberto Smith MD Primary Care Provider [phone] Encounter Details Date Type Department Care Team (Late st Contact Info) Description 05/09/2020 Telephone [facility] Transplant [address] [facility] Advanced [facility] 7th Floor, [place] [address] Kristen Mancera MD [address] DIV IM BONE MARROW TRANSPLANT, [address] [place], [place] [id number] Social History Tobacco Use Types Packs/Day Years Used Date Smoking Tobacco: Never Smokeless Tobacco: Never Comments Unknown Sex and Gender Information Value Date Recorded Sex Assigned at Not on file 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
--- OUTSIDE RECORDS SUMMARY | 2024-10-06 11:21 | XMS_ITS | Encounter Summary ---
Author Organization [facility] Address [address] [facility] [address] [place] [address] Care Team Providers Care Oracle Ebs Architect Name Role Phone Kristen Mancera MD Unavailable Kacey Gonzalez MD Primary Care Provider [phone] Reason for Visit * Reason Onset Date Comments Medical Question/Miscellaneous 04/09/2022 Encounter Details Date Type Department Care Team (Late st Contact Info) Description 04/09/2022 Telephone [facility] Medical [facility] [address] [address] Kacey Gonzalez MD [facility] [address] Medical Question/Miscellaneous Social History Tobacco Use Types Packs/Day Years Used Date Smoking Tobacco: Never Smokeless Tobacco: Never PHQ-2 Answer Date Recorded PHQ-2 Total Score (If total score is 3 or more points, staff should administer the PHQ-9) 0 04/20/2022 Comments No Sex and Gender Information Value Date Recorded Sex Assigned at Not on file 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 Gender Identity Not on file Sexual Orientation Not on file documented as of this encounter Miscellaneous Notes * Telephone Encounter - Katherine Hollins - 04/09/2022 2:44 PM CDT Notified patient to try other [facility] facility or outside [facility] and she can let us know where she goes * Telephone Encounter - Grayson Anglin - 04/09/2022 2:38 PM CDT Medical Question/Miscellaneous Caller???s Concern: Spoke with patient stated that she called to [facility] and they cannotget her in until may needs to know where she can go Caller???s Call back #:[phone] Does message need to be routed?Yes-Action Needed documented in this encounter Plan of Treatment Not on file documented as of this encounter Visit Diagnoses Not on filedocumented in this encounter Care Teams Oracle Ebs Architect Relationship Specialty Start Date End Date Kacey Gonzalez MD PCP - General Family Medicine 04/07/21 06/08/23 Kristen Mancera MD Medical Oncologist/Machine I Engraver Medical Oncology 11/21/20 documented as of this encounter
--- OUTSIDE RECORDS SUMMARY | 2024-10-06 11:21 | XMS_ITS | Encounter Summary ---
Author Organization [facility] Medical [facility] Address [address] [facility] [facility] [address] [place] [address] Care Team Providers Care Milk Treater Name Role Phone Kristen Mancera MD Unavailable Kacey Gonzalez MD Primary Care Provider [phone] Encounter Details Date Type Department Care Team (Late st Contact Info) Description 04/29/2022 Telephone [facility] [address] [address] Kacey Gonzalez MD [address] [facility] [place] [address] Social History Tobacco Use Types Packs/Day Years Used Date Smoking Tobacco: Never Smokeless Tobacco: Never PHQ-2 Answer Date Recorded PHQ-2 Total Score (If total score is 3 or more points, staff should administer the PHQ-9) 0 04/20/2022 Comments No Sex and Gender Information Value Date Recorded Sex Assigned at Not on file 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
--- OUTSIDE RECORDS SUMMARY | 2024-10-06 11:21 | XMS_ITS | Encounter Summary ---
Author Organization [facility] Address [address] [place] [address] Phone Care Team Providers Care Bonbon Dipper Name Role Phone Jesus Alberto Smith MD Primary Care Provider [phone] Kristen Mancera MD Unavailable Encounter Details Date Type Department Care Team (Late st Contact Info) Description 11/21/2020 10:45 AM GLUING CREW LEADER Lab [facility] Oncology [address] [facility] Advanced Medicine 7th [place] [address] [place] [address] Kristen Mancera MD [address] DIV IM BONE MARROW TRANSPLANT, [address] [place] [address] Neutropenia (CMS/HCC) Social History Tobacco Use Types Packs/Day Years Used Date Smoking Tobacco: Never Smokeless Tobacco: Never Comments Unknown Sex and Gender Information Value Date Recorded Sex Assigned at Not on file Legal Sex Female 10:19 PM GLUING 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 Gender Identity Not on file Sexual Orientation Not on file documented as of this encounter Plan of Treatment Not on file documented as of this encounter Procedures Procedure Name Priority Date/Time Associated Diagnosis Comments DIFFERENTIAL AUTO Routine 11/21/2020 10: 58 AM GLUING CREW LEADER Neutropenia (CMS/HCC) CBC WITH AUTO DIFFERENTIAL Routine 11/21/2020 10:58 AM GLUING CREW LEADER Neutropenia (CMS/HCC) LACTATE DEHYDROGENASE Routine 11/21/2020 10:58 AM GLUING CREW LEADER Neutropenia (CMS/HCC) COMPREHENSIVE METABOLIC PANEL Routine 11/21/2020 10:58 AM GLUING CREW LEADER Neutropenia (CMS/HCC) documented in this encounter Results * (ABNORMAL) Differential, auto (11/21/2020 10:58 AM GLUING CREW LEADER) Neutrophil abs 1.3(L) 1.8 - 6.6 K/cumm [facility] Comment:Testing performed by : [facility], [address] [place] [phone] Lymphocyte abs 1.4 1.2 - 3.3 K/cumm [facility] Comment:Testing performed by : [facility], [address] [place] [phone] Monocyte abs 0.6 0.2 - 1.2 K/cumm [facility] Comment:Testing performed by : [facility], [address] [place] [phone] Eosinophil abs 0.1 0.0 - 0.5 K/cumm [facility] Comment:Testing performed by : [facility], [address] [place] [phone] Basophil abs 0.1 0.0 - 0.2 K/cumm [facility] Comment:Testing performed by : [facility], [address] [place] [phone] Neutrophil pct 36.2 % [facility] Comment: Interpretive Data Percent cell count reference ranges are not reported, since discordance with absolute values may lead to misinterpretation of CBC data. Current Interpretive Data was last revised on 2018. Testing performed by: [facility], [address] [place] [phone] Lymphocyte pct 41.4 % [facility] Comment: Interpretive Data Percent cell count reference ranges are not reported, since discordance with absolute values may lead to misinterpretation of CBC data. Current Interpretive Data was last revised on 2018. Testing performed by: [facility], [address] [place] [phone] Monocyte pct 16.3 % [facility] Comment:Testing performed by : [facility], [address] [place] [phone] Eosinophil pct 3.5 % [facility] Comment:Testing performed by : [facility], [address] [place] [phone] Basophil pct 2.6 % [facility] Comment:Testing performed by : [facility], [address] [place] [phone] Blood specimen (specimen) 11/21/2020 10:58 AM GLUING CREW LEADER 11/21/2020 10:59 AM GLUING CREW LEADER us Kristen Mancera MD LAB BLOOD ORDERABLES Final Resul t [facility] One [facility] Department [place] [address] * Comprehensive metabolic panel (11/21/2020 10:58 AM GLUING CREW LEADER) Sodium 140 135 - 145 mmol/L [facility] Comment:Testing performed by : [facility], [address] [place] [phone] Potassium, pl 4.6 3.3 - 4.9 mmol/L [facility] Comment:Testing performed by : [facility], [address] [place] [phone] Chloride 107 97 - 110 mmol/L [facility] Comment:Testing performed by : [facility], [address] [place] [phone] CO2 29 22 - 32 mmol/L [facility] Comment:Testing performed by : [facility], [address] [place] [phone] Anion gap 4 2 - 15 mmol/L [facility] Comment:Testing performed by : [facility], [address] [place] [address] BUN 10 8 - 25 mg/dL [facility] Comment:Testing performed by : [facility], [address] [place] [phone] Creatinine 0.67 0.60 - 1.10 mg/dL [facility] Comment:Testing performed by : [facility], [address] [place] [phone] Glucose 91 70 - 199 mg/dL CERNER [...] was last revised 2017. Testing performed by: [facility], [address] [place], [place] [phone] Calcium 9.3 8.5 - 10.3 mg/dL [facility] Comment:Testing performed by : [place] [id number] Bilirubin, total 0.4 0.1 - 1.2 mg/dL [facility] Comment:Testing performed by : [facility], [address] [place] [address] Protein, pl 7.0 6.5 - 8.5 g/dL [facility] Comment:Testing performed by : [address] [phone] Albumin 4.4 3.5 - 5.0 g/dL [facility] Comment:Testing performed by : [address] [address] Alk phos 40 40 - 130 Units/L [facility] Comment:Testing performed by : [place] [id number] ALT 8 7 - 45 Units/L [facility] Comment:Testing performed by : [address] [phone] AST 14 10 - 45 Units/L [facility] Comment:Testing performed by : [address] [phone] Blood specimen (specimen) 11/21/2020 10:58 AM GLUING CREW LEADER 11/21/2020 10:59 AM GLUING CREW LEADER us Kristen Macnera MD LAB BLOOD ORDERABLES Final Resul t Performing Organization Address [facility] Co de Phone Number [facility] Department [place] [address] * Lactate dehydrogenase (LD) (11/21/2020 10:58 AM GLUING CREW LEADER) Pathologist [facility] Lactate dehydrogenase (LDH) 126 100 - 250 Units/L [facility]AG [facility] Comment:Testing performed by : [facility], [address] [place] [phone] Blood specimen (specimen) 11/21/2020 10:58 AM GLUING CREW LEADER 11/21/2020 10:59 AM GLUING CREW LEADER us Kristen Mancera MD LAB BLOOD ORDERABLES Final Resul t Performing Organization Address [facility] de Phone Number [facility] Department [place] [address] * (ABNORMAL) CBC with auto differential (11/21/2020 10:58 AM GLUING CREW LEADER) Pathologist [facility] WBC 3.5(L) 3.8 - 9.8 K/cumm [facility]AG [facility] Comment:Testing performed by : [facility], [address] [place] [phone] Hgb 12.8 12.1 - 15.1 g/dL JAG [facility] Comment:Testing performed by : [facility], [address] [place] [address] Hct 38.6 36.1 - 44.3 % JAG [facility] Comment:Testing performed by : [address] [phone] Plt 235 140 - 440 K/cumm [facility]AG [facility] Comment:Testing performed by : [facility], [address] [place] [phone] MPV 8.3 6.8 - 10.[address] [facility] Comment:Testing performed by : [facility], [address] [place] [address] RBC 4.08 3.90 - 5.00 M/cumm JAG [facility] Comment:Testing performed by : [facility], [address] [place] [phone] MCV 94.6 80.0 - 97.[address] [facility] Comment:Testing performed by : [facility], [address] [place] [phone] MCH 31.5 26.7 - 33.[address] [facility] Comment:Testing performed by : [facility], [address] [place] [address] MCHC 33.3 32.7 - 35.5 g/dL JAG [facility] Comment:Testing performed by : [facility], [address] [place] [phone] RDW CV 12.6 11.8 - 14.6 % JAG [facility] Comment:Testing performed by : [facility], [address] [place] [phone] NRBC abs 0.00 0.00 - 0.01 K/cumm JAG [facility] Comment:Testing performed by : [facility], [address] [place] [phone] Blood specimen (specimen) 11/21/2020 10:58 AM GLUING CREW LEADER 11/21/2020 10:59 AM GLUING CREW LEADER us Kristen Mancera MD LAB BLOOD ORDERABLES Final Resul t [facility] One [facility] Department of Laboratories [place], [place] [phone] documented in this encounter Visit Diagnoses Diagnosis Neutropenia (HCC) documented in this encounter Orders Appointment Requests Count Last Ordered Date Fi rst Ordered Date ONCBCN LAB APPOINTMENT 1 11/21/2020 documented in this encounter Care Teams Bonbon Dipper Relationship Specialty Start Date End Date Jesus Alberto Smith MD PCP - General 11/04/17 04/06/21 Kritsen Mancera MD Medical Oncologist/Green House Manager Medical Oncology 11/21/20 documented as of this encounter
--- OUTSIDE RECORDS SUMMARY | 2024-10-06 11:21 | XMS_ITS | Encounter Summary ---
Author Organization [facility] Address [address] [place] [address] Phone Care Team Providers Care Cut In Worker Name Role Phone Jesus Alberto Smith MD Primary Care Provider [phone] Encounter Details Date Type Department Care Team (Late st Contact Info) Description 05/04/2019 2:00 PM CDT Office Visit [facility] Bone [facility]row Transplant [address] [facility] Advanced Medicine 7th Floor, [place] [address] Kristen Mancera MD [address] DIV IM BONE MARROW TRANSPLANT, [address] [place], [place] [id number] Neutropenia, unspecified type (CMS/HCC) (Primary Dx) Social History Tobacco Use Types Packs/Day Years Used Date Smoking Tobacco: Never Smokeless Tobacco: Never Comments Unknown Sex and Gender Information Value Date Recorded Sex Assigned at Not on file 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 Gender Identity Not on file Sexual Orientation [...] K/cumm [facility] Comment:Testing performed by : [facility], [address] [place], [place] [phone] Hgb 14.0 12.1 - 15.1 g/dL [facility] Comment:Testing performed by : [facility], [address] [place], [place] [phone] Hct 41.4 36.1 - 44.3 % [facility] Comment:Testing performed by : [facility], [address] [place], [place] [phone] Plt 229 140 - 440 K/cumm [facility] Comment:Testing performed by : [place] [id number] MPV 8.1 6.8 - 10.4 fL [facility] Comment:Testing performed by : [facility], [address] [place], [place] [phone] RBC 4.37 3.90 - 5.00 M/cumm [facility] Comment:Testing performed by : [place] [id number] MCV 94.8 80.0 - 97.6 fL [facility] Comment:Testing performed by : [place] [id number] MCH 31.9 26.7 - 33.7 pg [facility] Comment:Testing performed by : [facility], [address] [place] [phone] MCHC 33.7 32.7 - 35.5 g/dL [facility] Comment:Testing performed by : [place] [id number] RDW CV 12.5 11.8 - 14.6 % [facility] Comment:Testing performed by : [address] [address] NRBC abs 0.00 0.00 - 0.01 K/cumm [facility] Comment:Testing performed by : [facility], [address] [place] [phone] Blood specimen (specimen) 05/16/2020 9:58 AM CDT 05/16/2020 10:02 AM CDT Lolita Barrera MANAGEMENT ADVISOR LAB BLOOD ORDERABLES Final Result [facility] One [facility] Department [place] [address] * (ABNORMAL) Comprehensive metabolic panel (05/16/2020 9:58 AM CDT) Sodium 141 135 - 145 mmol/L [facility] Comment:Testing performed by : [facility], [address] [place] [phone] Potassium, pl 4.7 3.3 - 4.9 mmol/L [facility] Comment:Testing performed by : [facility], [address] [place] [phone] Chloride 104 97 - 110 mmol/L [facility] Comment:Testing performed by : [address] [address] CO2 29 22 - 32 mmol/L [facility] Comment:Testing performed by : [facility], [address] [place] [phone] Anion gap 8 2 - 15 mmol/L [facility] Comment:Testing performed by : [facility], [address] [place] [phone] BUN 11 8 - 25 mg/dL [facility] Comment:Testing performed by : [facility], [address] [place] [phone] Creatinine 0.64 0.60 - 1.10 mg/dL [facility] Comment:Testing performed by : [facility], [address] [place] [phone] Glucose 81 70 - 199 mg/dL JAG [...] was last revised 2017. Testing performed by: [facility], [address] [place], [place] [phone] Calcium 9.4 8.5 - 10.3 mg/dL [facility] Comment:Testing performed by : [place] [id number] Bilirubin, total 0.2 0.1 - 1.2 mg/dL [facility] Comment:Testing performed by : [place] [id number] Protein, pl 6.8 6.5 - 8.5 g/dL [facility] Comment:Testing performed by : [address] [phone] Albumin 4.6 3.5 - 5.0 g/dL [facility] Comment:Testing performed by : [address] [phone] Alk phos 38(L) 40 - 130 Units/L [facility] Comment:Testing performed by : [address] [address] ALT 8 7 - 45 Units/L [facility] Comment:Testing performed by : [address] [address] AST 14 10 - 45 Units/L [facility] Comment:Testing performed by : [address] [phone] Blood specimen (specimen) 05/16/2020 9:58 AM CDT 05/16/2020 10:02 AM CDT us Lolita Barrera NP LAB BLOOD ORDERABLES Final Result [facility] One [facility] Department [place] [address] * Lactate dehydrogenase (LD) (05/16/2020 9:58 AM CDT) Lactate dehydrogenase (LDH) 126 100 - 250 Units/L JAG [facility] Comment:Testing performed by : [facility], [address] [place] [phone] Blood specimen (specimen) 05/16/2020 9:58 AM CDT 05/16/2020 10:02 AM CDT us Lolita Barrera MANAGEMENT ADVISOR LAB BLOOD ORDERABLES Final Result [facility]AG [facility] One [facility] [place] [address] documented in this encounter Visit Diagnoses Diagnosis Neutropenia, unspecified type (HCC)- Primary documented in this encounter Orders Appointment Requests Count Last Ordered Date Fi rst Ordered Date ONCBCN CLINIC APPOINTMENT REQUEST 1 019 documented in this encounter Care Teams Cut In Worker Relationship Specialty Start Date End Date Jesus Alberto Smith MD PCP - General 11/04/17 04/06/21 documented as of this encounter
--- OUTSIDE RECORDS SUMMARY | 2024-10-06 11:21 | XMS_ITS | Encounter Summary ---
Author Organization [facility] Address [address] [place] [address] Phone Care Team Providers Care Emotional Support Teacher Name Role Phone Jesus Alberto Smith MD Primary Care Provider [phone] Encounter Details Date Type Department Care Team (Late st Contact Info) Description 05/16/2020 9:45 AM CDT Lab [facility] Oncology [address] 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 Gender Identity Not on file Sexual Orientation [...] K/cumm [facility] Comment:Testing performed by : [facility], [address] [place] [phone] Lymphocyte abs 1.6 1.2 - 3.3 K/cumm [facility] Comment:Testing performed by : [facility], [address] [place] [phone] Monocyte abs 0.5 0.2 - 1.2 K/cumm [facility] Comment:Testing performed by : [facility], [address] [place] [phone] Eosinophil abs 0.3 0.0 - 0.5 K/cumm [facility] Comment:Testing performed by : [facility], [address] [place] [phone] Basophil abs 0.1 0.0 - 0.2 K/cumm [facility] Comment:Testing performed by : [facility], [address] [place] [phone] Neutrophil pct 38.5 % [facility] Comment: Interpretive Data Percent cell count reference ranges are not reported, since discordance with absolute values may lead to misinterpretation of CBC data. Current Interpretive Data was last revised on 2018. Testing performed by: [facility], [address] [place] [phone] Lymphocyte pct 40.0 % [facility] Comment: Interpretive Data Percent cell count reference ranges are not reported, since discordance with absolute values may lead to misinterpretation of CBC data. Current Interpretive Data was last revised on 2018. Testing performed by: [facility], [address] [place] [phone] Monocyte pct 13.3 % [facility] Comment:Testing performed by : [facility], [address] [place] [phone] Eosinophil pct 6.4 % [facility] Comment:Testing performed by : [facility], [address] [place] [phone] Basophil pct 1.8 % [facility] Comment:Testing performed by : [facility], [address] [place] [phone] Blood specimen (specimen) 05/16/2020 9:58 AM CDT 05/16/2020 10:02 AM CDT Lolita Barrera DIAMOND POLISHER LAB BLOOD ORDERABLES Final Result Performing Organization Address City/[facility] Co de Phone Number [facility] [place] [address] * Lactate dehydrogenase (LD) (05/16/2020 9:58 AM CDT) Pathologist [facility] Lactate dehydrogenase (LDH) 126 100 - 250 Units/L [facility] Comment:Testing performed by : [facility], [address] [place] [phone] Blood specimen (specimen) 05/16/2020 9:58 AM CDT 05/16/2020 10:02 AM CDT Lolita Barrera DIAMOND POLISHER LAB BLOOD ORDERABLES Final Result Performing Organization Address City/[facility] de Phone [place] [address] * (ABNORMAL) Comprehensive metabolic panel (05/16/2020 9:58 AM CDT) Sodium 141 135 - 145 mmol/L [facility] Comment:Testing performed by : [facility], [address] [place] [phone] Potassium, pl 4.7 3.3 - 4.9 mmol/L [facility] Comment:Testing performed by : [facility], [address] [place] [phone] Chloride 104 97 - 110 mmol/L [facility] Comment:Testing performed by : [facility], [address] [place] [phone] CO2 29 22 - 32 mmol/L [facility] Comment:Testing performed by : [facility], [address] [place] [phone] Anion gap 8 2 - 15 mmol/L [facility] Comment:Testing performed by : [facility], [address] [place] [phone] BUN 11 8 - 25 mg/dL [facility] Comment:Testing performed by : [facility], [address] [place] [phone] Creatinine 0.64 0.60 - 1.10 mg/dL [facility] Comment:Testing performed by : [facility], [address] [place] [phone] Glucose 81 70 - 199 mg/dL [facility] Comment: Interpretive Data Fasting glucose >/= [...] was last revised 2017. Testing performed by: [facility], [address] [place] [phone] Calcium 9.4 8.5 - 10.3 mg/dL [facility] Comment:Testing performed by : [facility], [address] [place] [phone] Bilirubin, total 0.2 0.1 - 1.2 mg/dL [facility] Comment:Testing performed by : [facility], [address] [place] [phone] Protein, pl 6.8 6.5 - 8.5 g/dL [facility] Comment:Testing performed by : [facility], [address] [place] [phone] Albumin 4.6 3.5 - 5.0 g/dL [facility] Comment:Testing performed by : [facility], [address] [place] [phone] Alk phos 38(L) 40 - 130 Units/L [facility] Comment:Testing performed by : [facility], [address] [place] [phone] ALT 8 7 - 45 Units/L [facility] Comment:Testing performed by : [facility], [address] [place] [phone] AST 14 10 - 45 Units/L [facility] Comment:Testing performed by : [facility], [address] [place] [phone] Blood specimen (specimen) 05/16/2020 9:58 AM CDT 05/16/2020 10:02 AM CDT us Lolita Barrera DIAMOND POLISHER LAB BLOOD ORDERABLES Final Result Performing Organization Address City/State/[facility] Co de Phone Number [facility] [place] [address] * CBC with auto differential (05/16/2020 9:58 AM CDT) WBC 4.0 3.8 - 9.8 K/cumm [facility] Comment:Testing performed by : [facility], [address] [place] [phone] Hgb 14.0 12.1 - 15.1 g/dL [facility] Comment:Testing performed by : [facility], [address] [place] [phone] Hct 41.4 36.1 - 44.3 % [facility] Comment:Testing performed by : [facility], [address] [place] [phone] Plt 229 140 - 440 K/cumm [facility] Comment:Testing performed by : [address] [phone] MPV 8.1 6.8 - 10.4 fL [facility] Comment:Testing performed by : [facility], [address] [place] [phone] RBC 4.37 3.90 - 5.00 M/cumm [facility] Comment:Testing performed by : [facility], [address] [place] [phone] MCV 94.8 80.0 - 97.6 fL [facility] Comment:Testing performed by : [facility], [address] [place] [phone] MCH 31.9 26.7 - 33.7 pg [facility] Comment:Testing performed by : [facility], [address] [place] [phone] MCHC 33.7 32.7 - 35.5 g/dL [facility] Comment:Testing performed by : [facility], [address] [place] [phone] RDW CV 12.5 11.8 - 14.6 % [facility] Comment:Testing performed by : [facility], [address] [place] [phone] NRBC abs 0.00 0.00 - 0.01 K/cumm [facility] Comment:Testing performed by : [facility], [address] [place] [phone] Blood specimen (specimen) 05/16/2020 9:58 AM CDT 05/16/2020 10:02 AM CDT us Lolita Barrera DIAMOND POLISHER LAB BLOOD ORDERABLES Final Result Performing Organization Address City/State/[facility] Co de Phone Number [facility] Department [place] [address] documented in this encounter Visit Diagnoses Diagnosis Neutropenia, unspecified type (HCC) documented in this encounter Care Teams Emotional Support Teacher Relationship Specialty Start Date End Date Jesus Alberto Smith MD PCP - General 11/04/17 04/06/21 documented as of this encounter
--- OUTSIDE RECORDS SUMMARY | 2024-10-06 11:21 | XMS_ITS | Encounter Summary ---
Author Organization [facility] Healthcare Address [address] [place] [address] Care Team Providers Care Vulnerability Researcher Name Role Phone Kristen Mancera MD Unavailable Kacey Gonzalez MD Primary Care Provider [phone] Reason for Referral * Diagnostic Imaging (Routine) [...] Expiration Date Visits Re quested Visits Authorized [id number] Closed 04/09/2022 05/09/2023 1 1 Reason for [...] Expiration Date Visits Re quested Visits Authorized [id number] Closed 04/09/2022 05/09/2023 1 1 Encounter Details Date Type Department Care Team (Latest Contact Info) Description 04/28/2022 12:11 PM CDT - 04/28/2022 11:59 PM CDT Hospital Encounter [facility] - Imaging [address] [facility] [address] [place] [phone] Breast pain, left Discharge Disposition: Discharge [...] on file 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
--- OUTSIDE RECORDS SUMMARY | 2024-10-06 11:21 | XMS_ITS | Encounter Summary ---
Author Organization [facility] Healthcare Address [address] [place] [address] Care Team Providers Care Car Repossessor Name Role Phone Jesus Alberto Smith MD Primary Care Provider [phone] Encounter Details Date Type Department Care Team (Late st Contact Info) Description 07/15/2020 Telephone [facility] Advanced Medicine Breast Imaging [facility] Advanced Medicine ([facility]) [address] [place] [id number] Miscellaneous, Not In File Social History Tobacco Use Types Packs/Day Years Used Date Smoking Tobacco: Never Smokeless Tobacco: Never Comments Unknown Sex and Gender Information Value Date Recorded Sex Assigned at Not on file Legal 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
--- OUTSIDE RECORDS SUMMARY | 2024-10-06 11:21 | XMS_ITS | Encounter Summary ---
Author Organization [facility] Address [address] [place] [address] Phone Care Team Providers Care Development Specialist Name Role Phone Jesus Alberto Smith MD Primary Care Provider [phone] Encounter Details Date Type Department Care Team (Late st Contact Info) Description 05/16/2020 10:20 AM CDT Office Visit [facility] Bone Marrow Transplant [address] [facility] Advanced Medicine 7th Floor, [place] [phone] Kristen Mancera MD [address] DIV IM BONE MARROW TRANSPLANT, [address] [place], [place] [phone] Neutropenia (CMS/HCC) (Primary Dx) Social History Tobacco Use Types Packs/Day Years Used Date Smoking Tobacco: Never Smokeless Tobacco: Never Comments Unknown Sex and Gender Information Value Date Recorded Sex Assigned at Not on file Legal Sex Female 10:19 PM UM SPECIALIST Gender Identity Not on file Sexual [...] CBC with auto differential (11/21/2020 10:58 AM UM SPECIALIST) WBC 3.5(L) 3.8 - 9.8 K/cumm [facility] Comment:Testing performed by : [facility], [address] [place] [phone] Hgb 12.8 12.1 - 15.1 g/dL [facility] Comment:Testing performed by : [facility], [address] [place] [phone] Hct 38.6 36.1 - 44.3 % [facility] Comment:Testing performed by : [place] [phone] Plt 235 140 - 440 K/cumm [facility] Comment:Testing performed by : [address] [phone] MPV 8.3 6.8 - 10.4 fL [facility] Comment:Testing performed by : [place] [phone] RBC 4.08 3.90 - 5.00 M/cumm [facility] Comment:Testing performed by : [address] [address] MCV 94.6 80.0 - 97.6 fL [facility] Comment:Testing performed by : [address] [address] MCH 31.5 26.7 - 33.7 pg [facility] Comment:Testing performed by : [address] [phone] MCHC 33.3 32.7 - 35.5 g/dL [facility] Comment:Testing performed by : [place] [phone] RDW CV 12.6 11.8 - 14.6 % [facility] Comment:Testing performed by : [address] [phone] NRBC abs 0.00 0.00 - 0.01 K/cumm [facility] Comment:Testing performed by : [facility], [address] [place] [phone] Blood specimen (specimen) 11/21/2020 10:58 AM UM SPECIALIST 11/21/2020 10:59 AM UM SPECIALIST us Kristen Mancera MD LAB BLOOD ORDERABLES Final Resul t Performing Organization Address [facility] de Phone Number [facility] [place] [address] * Lactate dehydrogenase (LD) (11/21/2020 10:58 AM UM SPECIALIST) Lactate dehydrogenase (LDH) 126 100 - 250 Units/L [facility] Comment:Testing performed by : [facility], [address] [place] [phone] Blood specimen (specimen) 11/21/2020 10:58 AM UM SPECIALIST 11/21/2020 10:59 AM UM SPECIALIST us Kristen Mancera MD LAB BLOOD ORDERABLES Final Resul t Performing Organization Address [facility] [place] [address] * Comprehensive metabolic panel (11/21/2020 10:58 AM UM SPECIALIST) Sodium 140 135 - 145 mmol/L [facility] Comment:Testing performed by : [facility], [address] [place] [phone] Potassium, pl 4.6 3.3 - 4.9 mmol/L [facility] Comment:Testing performed by : [facility], [address] [place] [phone] Chloride 107 97 - 110 mmol/L [facility] Comment:Testing performed by : [facility], [address] [place] [phone] CO2 29 22 - 32 mmol/L [facility] Comment:Testing performed by : [facility], [address] [place] [phone] Anion gap 4 2 - 15 mmol/L [facility] Comment:Testing performed by : [facility], [address] [place] [phone] BUN 10 8 - 25 mg/dL [facility] Comment:Testing performed by : [facility], [address] [place] [phone] Creatinine 0.67 0.60 - 1.10 mg/dL [facility] Comment:Testing performed by : [facility], [address] [place] [phone] Glucose 91 70 - 199 mg/dL CERNER [...] last revised 2017. Testing performed by: [facility], [address] [place] [phone] Calcium 9.3 8.5 - 10.3 mg/dL [facility] Comment:Testing performed by : [address] [address] Bilirubin, total 0.4 0.1 - 1.2 mg/dL [facility] Comment:Testing performed by : [address] [address] Protein, pl 7.0 6.5 - 8.5 g/dL [facility] Comment:Testing performed by : [address] [address] Albumin 4.4 3.5 - 5.0 g/dL [facility] Comment:Testing performed by : [address] [address] Alk phos 40 40 - 130 Units/L [facility] Comment:Testing performed by : [address] [phone] ALT 8 7 - 45 Units/L [facility] Comment:Testing performed by : [facility], [address] [facility] [address] AST 14 10 - 45 Units/L [facility] Comment:Testing performed by : [facility], [address] [facility] [phone] Blood specimen (specimen) 11/21/2020 10:58 AM UM SPECIALIST 11/21/2020 10:59 AM UM SPECIALIST us Kristen Mancera MD LAB BLOOD ORDERABLES Final Resul t [facility] One [facility] [place] [address] documented in this encounter Visit Diagnoses Diagnosis Neutropenia (HCC)- Primary documented in this encounter Orders Appointment Requests Count Last Ordered Date Fi rst Ordered Date ONCBCN CLINIC APPOINTMENT REQUEST 1 021 ONCBCN LAB APPOINTMENT 1 11/21/2020 documented in this encounter Care Teams Development Specialist Relationship Specialty Start Date End Date Jesus Alberto Smith MD PCP - General 11/04/17 04/06/21 documented as of this encounter
--- OUTSIDE RECORDS SUMMARY | 2024-10-06 11:21 | XMS_ITS | Encounter Summary ---
Author Organization [facility] Address [address] [facility] [address] [place] [address] Phone Care Team Providers Care Cut And Cover Line Worker Name Role Phone Jesus Alberto Smith MD Primary Care Provider [phone] Encounter Details Date Type Department Care Team (Late st Contact Info) Description 01/17/2019 10:30 AM CDT Office Visit [facility] Bone Marrow Transplant [address] [facility] Advanced Medicine 7th Floor, [place] [address] Lolita Barrera, DERICK [address] [facility] [phone] [place], [place] [id number] Neutropenia, unspecified type (CMS/HCC) (Primary Dx) Social History Tobacco Use Types Packs/Day Years Used Date Smoking Tobacco: Never Smokeless Tobacco: Never Tobacco Cessation:Counseling Given: No Comments Unknown Sex and Gender Information Value Date Recorded Sex Assigned at Not on file Legal Sex Female 10:19 PM REGISTERED 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 ??Additional sample types have been validated according to CLIA regulations. The performance characteristics of this assay have been determined by [facility] Molecular Infectious Disease Laboratory. Current interpretive data was last revised on 2017. Lolita Barrera HAND FRETTED INSTRUMENT MAKER LAB MICROBIOLOGY - [facility] ORDERABLES Final Result [facility] [place] [address] documented in this encounter Visit Diagnoses Diagnosis [...] 08/31/2021 added in this encounter Care Teams Cut And Cover Line Worker Relationship Specialty Start Date End Date Jesus Alberto Smith MD PCP - General 11/04/17 04/06/21 documented as of this encounter
--- OUTSIDE RECORDS SUMMARY | 2024-10-06 11:21 | XMS_ITS | Encounter Summary ---
Author Organization [facility] Address [address] [place] [address] Phone Care Team Providers Care Relay Shop Tester Name Role Phone Kristen Mancera MD Unavailable Kacey Gonzalez MD Primary Care Provider [phone] Encounter Details Date Type Department Care Team (Late st Contact Info) Description 06/26/2021 10:45 AM CDT Lab [facility] Oncology [address] [facility] 7th [place] [address] [place] [address] Kristen Mancera MD [address] DIV IM BONE MARROW TRANSPLANT, [address] [place], [place] [id number] Neutropenia, unspecified type (HCC); Annual physical exam [...] on file Legal Sex Female 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 Gender Identity Not on file Sexual Orientation [...] ORDERABLES Anat blackmon Result Performing Organization Address City/[facility] Co de Phone Number [facility] One [facility] Department [place] [address] * eGFR (06/26/2021 10:51 AM CDT) eGFR >90 90 - 130 mL/min/1.7 3 m2 [facility] Comment: Interpretive Data Reference Interval Normal [...] was last reviewed 2020 Testing performed by: [facility], [address] [place] [phone] Blood 06/26/2021 10:5 1 AM CDT 06/26/2021 10:55 AM CDT us Kristen Mancera MD LAB BLOOD ORDERABLES Final Resul t [facility] One [facility] [place] [address] * (ABNORMAL) Differential, auto (06/26/2021 10:51 AM CDT) Neutrophil abs 1.7(L) 1.8 - 6.6 K/cumm CERNER BJ Comment:Testing performed by : [facility], [address] [place] [phone] Lymphocyte abs 1.7 1.2 - 3.3 K/cumm CERNER BJ Comment:Testing performed by : [facility], [address] [place] [phone] Monocyte abs 0.5 0.2 - 1.2 K/cumm CERNER BJ Comment:Testing performed by : [facility], [address] [place] [phone] Eosinophil abs 0.1 0.0 - 0.5 K/cumm CERNER BJ Comment:Testing performed by : [facility], [address] [place] [phone] Basophil abs 0.1 0.0 - 0.2 K/cumm CERNER BJ Comment:Testing performed by : [facility], [address] [place] [phone] Neutrophil pct 41.7 % CERNER BJ Comment: Interpretive Data Percent cell count reference ranges are not reported, since discordance with absolute values may lead to misinterpretation of CBC data. Current Interpretive Data was last revised on 2018. Testing performed by: [facility], [address] [place] [phone] Lymphocyte pct 41.6 % CERNER BJ Comment: Interpretive Data Percent cell count reference ranges are not reported, since discordance with absolute values may lead to misinterpretation of CBC data. Current Interpretive Data was last revised on 2018. Testing performed by: [facility], [address] [place] [phone] Monocyte pct 11.4 % CERNER [facility] Comment:Testing performed by : [facility], [address] [place] [phone] Eosinophil pct 3.5 % [facility]ER [facility] Comment:Testing performed by : [facility], [address] [facility] [address] Basophil pct 1.8 % [facility] Comment:Testing performed by : [facility], [address] [facility] [address] Blood 06/26/2021 10:5 1 AM CDT 06/26/2021 10:55 AM CDT us Kristen Mancera MD LAB BLOOD ORDERABLES Final Resul t [facility] One [facility] Department [place] [address] * (ABNORMAL) Lipid panel (06/26/2021 10:51 AM CDT) Cholesterol 222(H) 30 - 199 mg/dL [facility] Comment: Interpretive Data Ages < [...] on 2018. Triglycerides 58 <=149 mg/dL [facility] Comment: Interpretive Data Ages < [...] on 2018. HDL 83 >=40 mg/dL [facility] Comment: Interpretive Data Ages < [...] 2018. LDL, calculated 127 <=129 mg/dL [facility] Comment: Interpretive Data Ages < [...] ORDERABLES Anat l Result JAG YANG One [facility] Department of Laboratories [place], [place] [id number] * (ABNORMAL) Comprehensive metabolic panel (06/26/2021 10:51 AM CDT) Sodium 139 135 - 145 mmol/L JAG YANG Comment:Testing performed by : [facility], [address] [place] [phone] Potassium, pl 4.8 3.3 - 4.9 mmol/L JAG YANG Comment:Testing performed by : [facility], [address] [place] [phone] Chloride 105 97 - 110 mmol/L JAG YANG Comment:Testing performed by : [facility], [address] [place] [phone] CO2 27 22 - 32 mmol/L JAG YANG Comment:Testing performed by : [facility], [address] [place] [phone] Anion gap 7 2 - 15 mmol/L CERNER BJ Comment:Testing performed by : [facility], [address] [place] [phone] BUN 9 8 - 25 mg/dL CERNER BJ Comment:Testing performed by : [facility], [address] [place] [phone] Creatinine 0.61 0.60 - 1.10 mg/dL CERNER BJ Comment:Testing performed by : [facility], [address] [place] [phone] Glucose 83 70 - 199 mg/dL CERNER [...] was last revised 2017. Testing performed by: [facility], [address] [place] [phone] Calcium 9.6 8.5 - 10.3 mg/dL CERNER BJ Comment:Testing performed by : [facility], [address] [place] [phone] Bilirubin, total 0.5 0.1 - 1.2 mg/dL CERNER BJ Comment:Testing performed by : [facility], [address] [place] [phone] Protein, pl 7.4 6.5 - 8.5 g/dL CERNER BJ Comment:Testing performed by : [facility], [address] [place] [phone] Albumin 4.6 3.5 - 5.0 g/dL CERNER BJ Comment:Testing performed by : [facility], [address] [place] [phone] Alk phos 39(L) 40 - 130 Units/L CERNER BJ Comment:Testing performed by : [facility], [address] [place] [phone] ALT 7 7 - 45 Units/L [facility] Comment:Testing performed by : [facility], [address] [place] [phone] AST 16 10 - 45 Units/L [facility] Comment:Testing performed by : [facility], [address] [place] [phone] Blood 06/26/2021 10:5 1 AM CDT 06/26/2021 10:55 AM CDT Kristen Mancera MD LAB BLOOD ORDERABLES Final Resul t Performing Organization Address City/[facility]/ZIP Co de Phone Number [facility] Department [place] [address] * Lactate dehydrogenase (LD) (06/26/2021 10:51 AM CDT) Pathologist [facility] Lactate dehydrogenase (LDH) 147 100 - 250 Units/L [facility] Comment:Testing performed by : [facility], [address] [place] [phone] Blood 06/26/2021 10:5 1 AM CDT 06/26/2021 10:55 AM CDT us Kristen Mancera MD LAB BLOOD ORDERABLES Final Resul t Performing Organization Address City/[facility] de Phone Number [facility] Department [place] [address] * CBC with auto differential (06/26/2021 10:51 AM CDT) WBC 4.0 3.8 - 9.8 K/cumm [facility] Comment:Testing performed by : [facility], [address] [place] [phone] Hgb 13.4 12.1 - 15.1 g/dL [facility] Comment:Testing performed by : [facility], [address] [place] [phone] Hct 39.5 36.1 - 44.3 % CERNER BJ Comment:Testing performed by : [facility], [address] [place], [place] [phone] Plt 231 140 - 440 K/cumm CERLIZZY BJ Comment:Testing performed by : [facility], [address] [place], [place] [phone] MPV 8.3 6.8 - 10.4 fL [facility] Comment:Testing performed by : [facility], [address] [place], [place] [phone] RBC 4.15 3.90 - 5.00 M/cumm CERLIZZY BJ Comment:Testing performed by : [place] [phone] MCV 95.3 80.0 - 97.6 fL [facility] Comment:Testing performed by : [facility], [address] [place] [phone] MCH 32.3 26.7 - 33.7 pg [facility] Comment:Testing performed by : [facility], [address] [place] [phone] MCHC 33.9 32.7 - 35.5 g/dL [facility] Comment:Testing performed by : [facility], [address] [place], [place] [phone] RDW CV 12.4 11.8 - 14.6 % [facility] Comment:Testing performed by : [address] [phone] NRBC abs 0.00 0.00 - 0.01 K/cumm [facility] Comment:Testing performed by : [facility], [address] [place] [phone] Blood 06/26/2021 10:5 1 AM CDT 06/26/2021 10:55 AM CDT us Kristen Mancera MD LAB BLOOD ORDERABLES Final Resul t [facility] One [facility] Department [place] [address] documented in this encounter Visit Diagnoses Diagnosis Neutropenia, unspecified type (HCC) Annual physical exam Routine general medical examination at a health care facility documented in this encounter Care Teams Relay Shop Tester Relationship Specialty Start Date End Date Kacey Gonzalez MD PCP - General Family Medicine 04/07/21 06/08/23 Kristen Mancera MD Medical Oncologist/Tax Specialist Medical Oncology 11/21/20 documented as of this encounter
--- OUTSIDE RECORDS SUMMARY | 2024-10-06 11:21 | XMS_ITS | Encounter Summary ---
Author Organization [facility] Address [address] [facility] [address] [place] [address] Care Team Providers Care Food Preparation Worker Name Role Phone Kristen Mancera MD Unavailable Kacey Gonzalez MD Primary Care Provider [phone] Reason for Visit * Reason Onset Date Comments Breast Pain 04/09/2022 Encounter Details Date Type Department Care Team (Late st Contact Info) Description 04/09/2022 Nurse Triage [facility] [address] [facility] [address], [place] [address] Kacey Gonzalez MD [facility] [facility] [address] [address] Social History Tobacco Use Types Packs/Day Years Used Date Smoking Tobacco: Never Smokeless Tobacco: Never PHQ-2 Answer Date Recorded PHQ-2 Total Score (If total score is 3 or more points, staff should administer the PHQ-9) 0 04/09/2022 Comments No Sex and Gender Information Value Date Recorded Sex Assigned at Not on file Legal Sex Female 10:19 PM WAIT STAFF Gender Identity Not on file Sexual Orientation Not on file documented as of this encounter Miscellaneous Notes * Telephone Encounter - Lucy Miller RN - 04/09/2022 10:56 AM CDT Reason for Disposition ??? Patient wants to be seen Protocols used: BREAST [id number] 51 y/o pt c/o Left breast pain [...] appointment not scheduled? Declined Caller's Callback #: [phone] Additional Comments: Patient is experiencing left breast [...] on filedocumented in this encounter Care Teams Food Preparation Worker Relationship Specialty Start Date End Date Kacey Gonzalez MD PCP - General Family Medicine 04/07/21 06/08/23 Kristen Mancera MD Medical Oncologist/Rivet Hole Machine Operator Medical Oncology 11/21/20 documented as of this encounter
--- OUTSIDE RECORDS SUMMARY | 2024-10-06 11:22 | XMS_ITS | Encounter Summary ---
Author Organization [facility] Address [address] [place] [address] Phone Care Team Providers Care Working Second Hand Name Role Phone Jesus Alberto Smith MD Primary Care Provider [phone] Reason for Visit * Oncology (Routine) - Closed Specialty Diagnoses / Procedures Referred By Contac t Referred To Contact Lab Diagnoses #C,,,, Procedures ARM DRAW Kristen Mancera MD Phone: tel: fax: [facility] Oncology [facility] [facility] Advanced Medicine 7th [place] [address] [place] [address] Phone: tel: Referral ID Status Reason Start Date Expiration Date Visits Re quested Visits Authorized [id number] Closed 05/05/2018 10/09/2018 99 99 Encounter Details Date Type Department Care Team (Late st Contact Info) Description 05/05/2018 1:30 PM CDT Lab [facility] Oncology [address] 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 Gender Identity Not on file Sexual [...] dehydrogenase (LDH) 161 100 - 250 Units/L [facility] Blood specimen (specimen) 05/05/2018 2:04 PM CDT 05/05/2018 3:13 PM CDT N[facility]ative [facility] - 05/05/2018 3:42 PM CDT us Kristen Mancera MD LAB BLOOD ORDERABLES Final Resul t [facility] One [facility] Department of Laboratories [place], [place] [id number] * (ABNORMAL) Comprehensive metabolic panel (05/05/2018 2:04 PM CDT) Sodium 142 135 - 145 mmol/L [facility] Potassium, pl 4.1 3.3 - 4.9 mmol/L [facility] Chloride 106 97 - 110 mmol/L [facility] CO2 29 22 - 32 mmol/L [facility] Anion gap 7 2 - 15 mmol/L [facility] BUN 9 8 - 25 mg/dL [facility] Creatinine 0.70 0.60 - 1.10 mg/dL [facility] Glucose 95 70 - 199 mg/dL [facility] Comment: Interpretive Data Fasting glucose [...] 2017. Calcium 9.0 8.5 - 10.3 mg/dL [facility] Bilirubin, total 0.4 0.1 - 1.2 mg/dL [facility] Protein, pl 7.0 6.5 - 8.5 g/dL [facility] Albumin 4.3 3.5 - 5.0 g/dL [facility] Alk phos 36(L) 40 - 130 Units/L [facility] ALT 14 7 - 45 Units/L [facility] AST 17 10 - 45 Units/L [facility] Blood specimen (specimen) 05/05/2018 2:04 PM CDT 05/05/2018 3:13 PM CDT Narrative [facility] - 05/05/2018 3:42 PM CDT us Kristen Mancera MD LAB BLOOD ORDERABLES Final Resul t [facility] One [facility] Department [place] [address] * Morphologic screen (05/05/2018 2:02 PM CDT) Morphologic Screen Original results obtained required verification by peripheral smear. [facility] Blood specimen (specimen) 05/05/2018 2:02 PM CDT 05/05/2018 2:05 PM CDT Narrative TRINYLIZZY [facility] - 05/05/2018 2:37 PM CDT us Kristen Mancera MD LAB BLOOD ORDERABLES Final Resul t [facility] One [facility] Department [place] [address] * (ABNORMAL) Differential, auto (05/05/2018 2:02 PM CDT) Neutrophil abs 1.5(L) 1.8 - 6.6 K/cumm [facility] Comment:Testing performed by : [facility], [address] [place] [phone] Lymphocyte abs 1.7 1.2 - 3.3 K/cumm [facility] Comment:Testing performed by : [facility], [address] [place] [phone] Monocyte abs 0.5 0.2 - 1.2 K/cumm [facility] Comment:Testing performed by : [facility], [address] [place] [phone] Eosinophil abs 0.2 0.0 - 0.5 K/cumm [facility] Comment:Testing performed by : [facility], [address] [place] [phone] Basophil abs 0.1 0.0 - 0.2 K/cumm [facility] Comment:Testing performed by : [facility], [address] [place] [phone] Neutrophil pct 38.0 % CERNER [facility] Comment: Interpretive Data Percent cell count reference ranges are not reported, since discordance with absolute values may lead to misinterpretation of CBC data. Current Interpretive Data was last revised on 2018. Testing performed by: [facility], [address] [place] [phone] Lymphocyte pct 42.5 % CERNER [facility] Comment: Interpretive Data Percent cell count reference ranges are not reported, since discordance with absolute values may lead to misinterpretation of CBC data. Current Interpretive Data was last revised on 2018. Testing performed by: [facility], [address] [place] [phone] Monocyte pct 12.8 % JAG AYNG Comment:Testing performed by : [facility], [address] [place] [phone] Eosinophil pct 4.5 % [facility] Comment:Testing performed by : [facility], [address] [place] [phone] Basophil pct 2.2 % [facility] Comment:Testing performed by : [facility], [address] [place] [phone] Blood specimen (specimen) 05/05/2018 2:02 PM CDT 05/05/2018 2:05 PM CDT Narrative JAG YANG - 05/05/2018 2:37 PM CDT us Kristen Mancera MD LAB BLOOD ORDERABLES Final Resul t [facility] One [facility] Department [place] [address] * CBC with auto differential (05/05/2018 2:02 PM CDT) WBC 4.0 3.8 - 9.8 K/cumm [facility] Comment:Testing performed by : [address] [address] Hgb 13.5 12.1 - 15.1 g/dL JAG YANG Comment:Testing performed by : [facility], [address] [place] [phone] Hct 40.6 36.1 - 44.3 % JAG YANG Comment:Testing performed by : [address] [address] Plt 251 140 - 440 K/cumm JAG YANG Comment:Testing performed by : [address] [address] MPV 8.4 6.8 - 10.4 fL JAG YANG Comment:Testing performed by : [facility], [address] [place] [address] RBC 4.29 3.90 - 5.00 M/cumm [facility] Comment:Testing performed by : [facility], [address] [place] [address] MCV 94.6 80.0 - 97.6 fL [facility] Comment:Testing performed by : [facility], [address] [place] [address] MCH 31.4 26.7 - 33.7 pg [facility] Comment:Testing performed by : [facility], [address] [place] [address] MCHC 33.2 32.7 - 35.5 g/dL [facility] Comment:Testing performed by : [facility], [address] [place] [address] RDW CV 12.4 11.8 - 14.6 % [facility] Comment:Testing performed by : [facility], [address] [place] [address] NRBC abs 0.00 0.00 - 0.01 K/cumm [facility]AG [facility] Comment:Testing performed by : [facility], [address] [place] [address] Blood specimen (specimen) 05/05/2018 2:02 PM CDT 05/05/2018 2:05 PM CDT Narrative [facility] - 05/05/2018 2:10 PM CDT us Kristen Mancera MD LAB BLOOD ORDERABLES Final Resul t [facility] One [facility] Department [place] [address] documented in this encounter Visit Diagnoses Diagnosis Neutropenia, unspecified type (HCC) documented in this encounter Care Teams Working Second Hand Relationship Specialty Start Date End Date Jesus Alberto Smith MD PCP - General 11/04/17 04/06/21 documented as of this encounter
--- OUTSIDE RECORDS SUMMARY | 2024-10-06 11:22 | XMS_ITS | Encounter Summary ---
Author Organization [facility] Healthcare Address [address] [place] [address] Care Team Providers Care Repairer Screen Crusher Name Role Phone Jesus Alberto Smith MD Primary Care Provider [phone] Encounter Details Date Type Department Care Team (Latest Contact Info) Description 01/28/2017 11:42 AM CDT - 02/01/2017 11:59 PM CDT Hospital Encounter [facility] OP INTERIM [phone] Faustina Bolanos MD PhD [address] [employer], [address] [place] [address] Discharge Disposition: Discharge to home or self care Social History Tobacco Use Types Packs/Day Years Used Date Smoking Tobacco: Never Assessed Comments Unknown Sex and Gender Information Value Date Recorded Sex Assigned at Not on file Legal Sex Female 10:19 PM [employer] Gender Identity Not on file Sexual Orientation [...] * Copper, serum (02/01/2017 10:37 AM CDT) [facility] Copper 1.00 0.75 - 1.45 mcg/mL [facility] Comment: ADDITIONAL INFORMATION This test was developed and its performance characteristics determined by [facility] in a manner consistent with CLIA requirements. This test has not been cleared or approved by the U.S. Food and Drug Administration. Test Performed by: [place] [id number] Blood specimen (specimen) 02/01/2017 10:37 AM CDT 02/01/2017 11:01 AM CDT Faustina Bolanos MD PhD LAB BLOOD ORDERABLES F inal Result Performing Organization Address City/[facility]/ZIP Co de Phone Number [facility] [place] [address] * PNH profile (02/01/2017 10:37 AM CDT) [facility] RBC-CD59 Test Completed [facility] PN WBC-CD59 Test Completed [facility] FLAER Test Completed [facility] Interpretation See separate Surgical Pathology report. [facility] Blood specimen (specimen) 02/01/2017 10:37 AM CDT 02/01/2017 12:40 PM CDT Faustina Bolanos MD PhD LAB BLOOD ORDERABLES F inal Result Performing Organization Address City/[facility]/ZIP Co de Phone Number [facility] [place] [address] * Homocysteine (02/01/2017 10:37 AM CDT) [facility] Homocysteine 8.4 0.0 - 15.0 mcmol/L [facility] Blood specimen (specimen) 02/01/2017 10:37 AM CDT 02/01/2017 1:53 PM CDT Faustina Bolanos MD PhD LAB BLOOD ORDERABLES E dited Result - Final Performing Organization Address [facility]/ZIP Co de Phone Number [facility] Department [place] [address] * B FyB Antigen Type (02/01/2017 10:16 AM CDT) [facility] RBC phenotyping, Fyb ag Positive [facility] Blood specimen (specimen) 02/01/2017 10:16 AM CDT 02/01/2017 7:41 PM CDT Faustina Bolanos MD PhD LAB BLOOD ORDERABLES F inal Result Performing Organization Address [facility] Co de Phone Number [facility] [place] [address] * B FyA Antigen Type (02/01/2017 10:16 AM CDT) [facility] RBC phenotyping, Fya ag Negative [facility] Blood specimen (specimen) 02/01/2017 10:16 AM CDT 02/01/2017 7:41 PM CDT Faustina Bolanos MD PhD LAB BLOOD ORDERABLES F inal Result Performing Organization Address [facility] de Phone Number [facility] [place] [address] * (ABNORMAL) Complement, total (02/01/2017 10:16 AM CDT) [facility] Complement hemolytic 164(H) 63 - 145 [facility] Blood specimen (specimen) 02/01/2017 10:16 AM CDT 02/01/2017 12:14 PM CDT Faustina Bolanos MD PhD LAB BLOOD ORDERABLES F inal Result Performing Organization Address [facility] Co de Phone Number [facility] [place] [address] * HERNAN reflex to quantitative (02/01/2017 10:16 AM CDT) Pathologist [facility] HERNAN Negative Negative [facility] Comment: Interpretive Data Normal range for Hernan [...] ORDERABLES F inal Result Performing Organization Address [facility] [place] [address] * C4 complement (02/01/2017 10:16 AM CDT) Pathologist [facility] Complement C4 19.8 10.0 - 40.0 mg/dL [facility] Blood specimen (specimen) 02/01/2017 10:16 AM CDT 02/01/2017 12:13 PM CDT Result [facility] Faustina Bolanos MD PhD LAB BLOOD ORDERABLES F inal Result Performing Organization Address [facility] [place] [address] * C3 complement (02/01/2017 10:16 AM CDT) [facility] Complement C3 98.0 90.0 - 180.0 mg/dL [facility] Blood specimen (specimen) 02/01/2017 10:16 AM CDT 02/01/2017 12:13 PM CDT Faustina Bolanos MD PhD LAB BLOOD ORDERABLES F inal Result Performing Organization Address City/[facility] Co de Phone Number [facility] Department [place] [address] * Antithrombin (02/01/2017 10:16 AM CDT) [facility] Rheumatoid factor, quant <10.0 0.1 - 15.0 IUnits/mL [facility] Blood specimen (specimen) 02/01/2017 10:16 AM CDT 02/01/2017 10:58 AM CDT Faustina Bolanos MD PhD LAB BLOOD ORDERABLES F inal Result Performing Organization Address [facility] de Phone Number [facility] Department [place] [address] * Folate (02/01/2017 10:16 AM CDT) [facility] Folic acid 17.2 4.8 - 24.2 mcg/L [facility] Blood specimen (specimen) 02/01/2017 10:16 AM CDT 02/01/2017 10:58 AM CDT Faustina Bolanos MD PhD LAB BLOOD ORDERABLES F inal Result Performing Organization Address [facility] Co de Phone Number [facility] Department [place] [address] * Vitamin B12 (02/01/2017 10:16 AM CDT) [facility] Vitamin B12 330 210 - 900 pg/mL [facility] Blood specimen (specimen) 02/01/2017 10:16 AM CDT 02/01/2017 10:58 AM CDT Faustina Bolanos MD PhD LAB BLOOD ORDERABLES F inal Result [facility] Department [place] [address] * Type and screen (02/01/2017 8:35 AM CDT) Denise, indirect Negative [facility] ABO Rh B Positive [facility] Blood specimen (specimen) 02/01/2017 8:35 AM CDT 02/01/2017 9:01 AM CDT Faustina Bolanos MD PhD LAB BLOOD BANK TEST OR DERABLES Edited Result - Final [facility] Department [place] [address] * Surgical pathology (02/01/2017 8:35 AM CDT) 02/01/2017 8:35 AM CDT 02/01/2017 12:40 PM CDT [facility] LAB SYSTEM - 02/02/2017 11:45 PM CDT [facility] Dawna Carr Laboratory [place] [address] SURGICAL PATHOLOGY REPORT FINAL Patient Name: KEERTHI DIXON ? Address: [address] ??Service: ??Hematology/Oncology ??[place], [place] ??[id number] ??Location: ??[facility] Taken: 02/01/2017 Gender: F ?? Received: 02/01/2017 : 1970 (Age: 46) ??Hospital #: ??[id number] Accessioned: 02/01/2017 ?Patient Type: ??[facility] Ref Lab [place] Reported: 02/02/2017 ? Physician(s): [...] Specimen(s) Received: A: Peripheral blood for flow, [facility] Gross Description: { Not Entered } ?Ladonna [...] determined by the Surgical Pathology Department at [facility] as part of an ongoing quality assurance associate program and in compliance with federally mandated [...] determined by the Surgical Pathology Department of [facility]. ??It has not been cleared or approved by the U. S. Food and Drug Administration. Faustina Bolanos MD PhD LAB PATHOLOGY ORDERABL ES Final Result [address] * (ABNORMAL) CMV, IgG (02/01/2017 8:35 [...] MICROBIOLOGY - GEN ERAL ORDERABLES Final Result [facility] Department [place] [address] * (ABNORMAL) Comprehensive metabolic panel (02/01/2017 8:35 AM CDT) Sodium 141 135 - 145 mmol/L [facility] Potassium, pl 4.1 3.3 - 4.9 mmol/L [facility] CO2 27 22 - 32 mmol/L [facility] BUN 11 8 - 25 mg/dL [facility] Glucose 89 70 - 199 mg/dL [facility] Creatinine 0.63 0.60 - 1.10 mg/dL [facility] Calcium 9.8 8.5 - 10.3 mg/dL [facility] Chloride 104 97 - 110 mmol/L [facility] Comment:fixed result mapping Albumin 4.7 3.5 - 5.0 g/dL [facility] AST 20 10 - 45 Units/L [facility] ALT 14 7 - 45 Units/L [facility] Alk phos 39(L) 40 - 130 Units/L [facility] Bilirubin, total 0.7 0.1 - 1.2 mg/dL [facility] Protein, pl 7.5 6.5 - 8.5 g/dL [facility] Anion gap 10 2 - 15 mmol/L [facility] Blood specimen (specimen) 02/01/2017 8:35 AM CDT 02/01/2017 8:52 AM CDT us Faustina Bolanos MD PhD LAB BLOOD ORDERABLES F inal Result [facility] Department [place] [address] * Lactate dehydrogenase (LD) (02/01/2017 8:35 AM CDT) Lactate dehydrogenase (LDH) 137 100 - 250 Units/L [facility] Blood specimen (specimen) 02/01/2017 8:35 AM CDT 02/01/2017 8:52 AM CDT Faustina Bolanos MD PhD LAB BLOOD ORDERABLES F inal Result Performing Organization Address City/[facility]/ZIP Co de Phone Number [facility] Department [place] [address] * (ABNORMAL) Morphology exam (02/01/2017 8:32 AM CDT) Neutrophils 36(L) 44 - 80 % [facility] Lymphocytes 47(H) 8 - 44 % [facility] Monos 14(H) 2 - 8 % [facility] Eosinophils 1 0 - 6 % [facility] Basophil pct 2 0 - 3 % [facility] Cells Diffed - CAM 100 [facility] Platelet estimate Adequate Adequate [facility] Platelet morphology Few Enlarged(A) [facility] Anisocytosis - CAM Slight None Seen [facility] Blood specimen (specimen) 02/01/2017 8:32 AM CDT 02/01/2017 8:35 AM CDT Faustina Bolanos MD PhD LAB BLOOD ORDERABLES E dited Result - Final Performing Organization Address [facility] Co de Phone Number [facility] Department [place] [address] * Morphology exam (02/01/2017 8:32 AM CDT) Pathologist [facility] Morphological Screen, CAM Original results obtained required verification by peripheral smear. [facility] Blood specimen (specimen) 02/01/2017 8:32 AM CDT 02/01/2017 8:35 AM CDT Result [facility] Faustina Bolanos MD PhD LAB BLOOD ORDERABLES F inal Result Performing Organization Address [facility] Co de Phone Number [facility] Department [place] [address] * (ABNORMAL) CBC with auto differential (02/01/2017 8:32 AM CDT) [facility] Signature WBC 3.6(L) 3.8 - 9.8 K/cumm [facility] RBC 4.59 3.90 - 5.00 M/cumm [facility] Hgb 14.0 12.1 - 15.1 g/dL [facility] Hct 42.3 36.1 - 44.3 % [facility] Mean Cellular Volume - CAM 92.1 80.0 - 97.6 fL [facility] Mean Cellular Hemoglobin - CAM 30.5 26.7 - 33.7 pg [facility] Mean Cellular Hemoglobin Concentration - CAM 33.2 32.7 - 35.5 g/dL [facility] Rdw 12.4 11.8 - 14.6 % [facility] Plt 261 140 - 440 K/cumm [facility] Mean Platelet Volume - CAM 8.4 6.8 - 10.4 fL [facility] Neutrophil pct 33.9(L) 38.7 - 74.5 % [facility] Lymphocyte pct 45.0 20.0 - 54.3 % [facility] Monos 13.1 4.3 - 13.5 % [facility] Eosinophil pct 6.3(H) 0.0 - 6.0 % [facility] Basophil pct 1.7 0.0 - 3.0 % [facility] Neutrophil abs 1.2(L) 1.8 - 6.6 K/cumm [facility] Lymphocyte abs 1.6 1.2 - 3.3 K/cumm [facility] Monocyte abs 0.5 0.2 - 1.2 K/cumm [facility] Eosinophils, abs 0.2 0.0 - 0.5 K/cumm [facility] Basophil abs 0.1 0.0 - 0.2 K/cumm [facility] Blood specimen (specimen) 02/01/2017 8:32 AM CDT 02/01/2017 8:35 AM CDT Faustina Bolanos MD PhD LAB BLOOD ORDERABLES E dited Result - Final [facility] [place] [address] documented in this encounter Visit Diagnoses Not on filedocumented in this encounter Care Teams Repairer Screen Crusher Relationship Specialty Start Date End Date Jesus Alberto Smith MD PCP - General 12/13/16 02/10/17 documented as of this encounter
--- OUTSIDE RECORDS SUMMARY | 2024-10-06 11:22 | XMS_ITS | Encounter Summary ---
Author Organization [facility] Healthcare Address [address] [place] [address] Care Team Providers Care Enterostomal Nurse Name Role Phone Jesus Alberto Smith MD Primary Care Provider [phone] Encounter Details Date Type Department Care Team (Latest Contact Info) Description 11/17/2018 11:40 AM FRUIT TESTER - 11/17/2018 11:59 PM FRUIT TESTER Hospital Encounter [facility] Advanced [facility] Breast [facility] ([facility]) [address] [place] [id number] Rober Cardona MD [address] [facility] [address] [place] [address] Encounter for screening mammogram for malignant neoplasm of breast Discharge Disposition: Discharge to home or self care Social History Tobacco Use Types Packs/Day Years Used Date Smoking Tobacco: Never Smokeless Tobacco: Never Comments Unknown Sex and Gender Information Value Date Recorded Sex Assigned at Not on file Legal Sex Female 10:19 PM FRUIT TESTER Gender Identity Not on file Sexual Orientation [...] Read Routine (OP Routine) 11/17/2018 12:01 PM FRUIT TESTER Encounter for screening mammogram for malignant neoplasm of breast documented in this encounter Results * Screening Mammogram Bilateral w Niko w Implants (11/17/2018 12:01 PM FRUIT TESTER) Anatomical Region Laterality Modality Breast Bilateral Mammography Narrative 11/22/2018 3:12 PM FRUIT TESTER Mammogram Technique: Bilateral Digital Breast Tomosynthesis, Bilateral C-view 2D Screening mammogram. ??Views obtained: ??bilateral craniocaudal; bilateral craniocaudal implant displaced; bilateral mediolateral oblique; and bilateral mediolateral oblique implant displaced. ??Computer Aided Detection was performed. Mammogram Findings: The present examination has been compared to prior imaging studies performed at [facility] on 01/05/2013, 02/15/2014 and 11/19/2016. The [...] compared to prior imaging studies performed at [facility] on 01/05/2013, 02/15/2014 and 11/19/2016. The [...] breast documented in this encounter Care Teams Enterostomal Nurse Relationship Specialty Start Date End Date Jesus Alberto Smith MD PCP - General 11/04/17 04/06/21 documented as of this encounter
--- OUTSIDE RECORDS SUMMARY | 2024-10-06 11:22 | XMS_ITS | Encounter Summary ---
Author Organization [facility] Healthcare Address [address] [place] [address] Care Team Providers Care Retail Visual Merchandiser Name Role Phone Unknown, Notinfile Primary Care Provider Unavail Jesus Alberto Monet MD Primary Care Provider [phone] Encounter Details Date Type Department Care Team (Latest Contact Info) Description 10/31/2017 10:24 AM CORPORATE ANALYST - 11/04/2017 11:59 PM [facility] Hospital Encounter [facility] OP INTERIM [phone] Kristen Mancera MD [address] IM BONE [employer], [address] [place] [address] Discharge Disposition: Discharge to home or self care Social History Tobacco Use Types Packs/Day Years Used Date Smoking Tobacco: Never Comments Unknown Sex and Gender Information Value Date Recorded Sex Assigned at Not on file Legal Sex Female 10:19 PM CORPORATE ANALYST Gender Identity Not on file Sexual [...] DEHYDROGENASE Routine Gen Lab 11/04/2017 2:20 PM CORPORATE ANALYST COMPREHENSIVE METABOLIC PANEL Routine Gen Lab 11/04/2017 2:20 PM CORPORATE ANALYST CBC WITH AUTO DIFFERENTIAL Routine Gen Lab 11/04/2017 2:02 PM CORPORATE ANALYST DISCHARGE LABORATORY CUMULATIVE REPORT 10/31/2017 12:00 AM CORPORATE ANALYST documented in this encounter Results * Lactate dehydrogenase (LD) (11/04/2017 2:20 PM CORPORATE ANALYST) Pathologist [facility] Lactate dehydrogenase (LDH) 136 100 - 250 Units/L [facility] Blood specimen (specimen) 11/04/2017 2:20 PM CORPORATE ANALYST 11/04/2017 2:25 PM CORPORATE ANALYST Narrative [facility] - 11/04/2017 2:50 PM CORPORATE ANALYST us Kristen Mancera MD LAB BLOOD ORDERABLES Final Resul t [facility] [place] [address] * Comprehensive metabolic panel (11/04/2017 2:20 PM CORPORATE ANALYST) Sodium 138 135 - 145 mmol/L [facility] Potassium, pl 3.8 3.3 - 4.9 mmol/L [facility] CO2 28 22 - 32 mmol/L [facility] BUN 9 8 - 25 mg/dL [facility] Glucose 132 70 - 199 mg/dL [facility] Comment: Interpretive Data Fasting glucose >/= 126 [...] 2017. Creatinine 0.63 0.60 - 1.10 mg/dL [facility] Calcium 9.2 8.5 - 10.3 mg/dL [facility] Chloride 102 97 - 110 mmol/L [facility] Albumin 4.4 3.5 - 5.0 g/dL [facility] AST 18 10 - 45 Units/L [facility] ALT 13 7 - 45 Units/L [facility] Alk phos 41 40 - 130 Units/L [facility] Bilirubin, total 0.6 0.1 - 1.2 mg/dL [facility] Protein, pl 7.3 6.5 - 8.5 g/dL [facility] Anion gap 8 2 - 15 mmol/L [facility] Blood specimen (specimen) 11/04/2017 2:20 PM CORPORATE ANALYST 11/04/2017 2:25 PM CORPORATE ANALYST Narrative [facility] - 11/04/2017 2:50 PM CORPORATE ANALYST us Kristen Mancera MD LAB BLOOD ORDERABLES Final Resul t [facility] [place] [address] * (ABNORMAL) CBC with auto differential (11/04/2017 2:02 PM CORPORATE ANALYST) WBC 4.0 3.8 - 9.8 K/cumm [facility] RBC 4.30 3.90 - 5.00 M/cumm [facility] Hgb 12.9 12.1 - 15.1 g/dL [facility] Hct 39.4 36.1 - 44.3 % [facility] Mean Cellular Volume - CAM 91.7 80.0 - 97.6 fL [facility] Mean Cellular Hemoglobin - CAM 30.0 26.7 - 33.7 pg [facility] Mean Cellular Hemoglobin Concentration - CAM 32.7 32.7 - 35.5 g/dL [facility] Rdw 13.1 11.8 - 14.6 % [facility] Plt 259 140 - 440 K/cumm [facility] Mean Platelet Volume - CAM 8.8 6.8 - 10.4 fL [facility] Neutrophil pct 43.3 38.7 - 74.5 % [facility] Lymphocyte pct 40.7 20.0 - 54.3 % [facility] Monos 12.2 4.3 - 13.5 % [facility] Eosinophil pct 2.3 0.0 - 6.0 % [facility] Basophil pct 1.5 0.0 - 3.0 % [facility] Neutrophil abs 1.7(L) 1.8 - 6.6 K/cumm [facility] Lymphocyte abs 1.6 1.2 - 3.3 K/cumm [facility] Monocyte abs 0.5 0.2 - 1.2 K/cumm [facility] Eosinophils, abs 0.1 0.0 - 0.5 K/cumm [facility] Basophil abs 0.1 0.0 - 0.2 K/cumm [facility] NRBC 0.0 0.0 - 0.2 % [facility] NRBC abs 0.00 0.00 - 0.01 K/cumm [facility] Blood specimen (specimen) 11/04/2017 2:02 PM CORPORATE ANALYST 11/04/2017 2:02 PM CORPORATE ANALYST Narrative [facility] - 11/04/2017 2:10 PM CORPORATE ANALYST us Kristen Mancera MD LAB BLOOD ORDERABLES Final Resul t [facility] [place] [address] * DISCHARGE LABORATORY CUMULATIVE REPORT (10/31/2017 12:00 AM CORPORATE ANALYST) Narrative 10/31/2017 12:00 AM CORPORATE ANALYST Ordered by an unspecified provider. us Historical Provider LAB BLOOD ORDERABLES Anat l Result documented in this encounter Visit Diagnoses Not on filedocumented in this encounter Care Teams Retail Visual Merchandiser Relationship Specialty Start Date End Date Unknown, Notinfile PCP - General 08/05/17 11/03/17 Jesus Alberto Smith MD PCP - General 11/04/17 04/06/21 documented as of this encounter
--- OUTSIDE RECORDS SUMMARY | 2024-10-06 11:22 | XMS_ITS | Encounter Summary ---
Author Organization [facility] Healthcare Address [address] [place] [address] Care Team Providers Care Library Services Dean Name Role Phone Jesus Alberto Smith MD Primary Care Provider [phone] Encounter Details Date Type Department Care Team (Latest Contact Info) Description 02/11/2017 10:19 AM CDT - 02/11/2017 11:59 PM T Hospital Encounter [facility] OP INTERIM [phone] Kristen Mancera MD [address] DIV IM BONE MARROW TRANSPLANT, [address] [place] [address] Discharge Disposition: Discharge to home or self care Social History Tobacco Use Types Packs/Day Years Used Date Smoking Tobacco: Never Assessed Comments Unknown Sex and Gender Information Value Date Recorded Sex Assigned at Not on file Legal Sex Female 10:19 PM EMS DRIVER Gender Identity Not on file Sexual [...] [facility] Sendout reference lab Blood [facility] Blood specimen (specimen) 02/11/2017 11:28 AM CDT 02/11/2017 10:11 PM CDT us Kristen Mancera MD LAB BLOOD ORDERABLES Edited Resu lt - Final [facility] Department [place] [address] documented in this encounter Visit Diagnoses Not on filedocumented in this encounter Care Teams Library Services Dean Relationship Specialty Start Date End Date Jesus Alberto Smith MD PCP - General 02/11/17 05/02/17 documented as of this encounter
--- OUTSIDE RECORDS SUMMARY | 2024-10-06 11:22 | XMS_ITS | Encounter Summary ---
Author Organization [facility] Address [address] [place] [address] Phone Care Team Providers Care Vacation Planner Name Role Phone Jesus Alberto Smith MD Primary Care Provider [phone] Encounter Details Date Type Department Care Team (Late st Contact Info) Description 05/05/2018 2:00 PM CDT Office Visit [facility] Bone Marrow Transplant [address] [facility] Advanced Medicine 7th Floor, [place] [phone] Kristen Mancera MD [address] DIV IM BONE MARROW TRANSPLANT, [address] [place], [place] [id number] Neutropenia, unspecified type (CMS/HCC) (Primary Dx) Social History Tobacco Use Types Packs/Day Years Used Date Smoking Tobacco: Never Smokeless Tobacco: Never Comments Unknown Sex and Gender Information Value Date Recorded Sex Assigned at Not on file Legal Sex Female 10:19 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 Gender Identity Not on file Sexual [...] Body Mass Index 21.37 11/04/2017 2:08 PM CASTER HELPER documented in this encounter Progress Notes * [...] WBC 3.5(L) 3.8 - 9.8 K/cumm JAG [facility] Comment:Testing performed by : [facility], [address] [place] [phone] Hgb 13.6 12.1 - 15.1 g/dL [facility] Comment:Testing performed by : [facility], [address] [place], [place] [phone] Hct 39.8 36.1 - 44.3 % [facility]J Comment:Testing performed by : [facility], [address] [place] [address] Plt 233 140 - 440 K/cumm [facility]J Comment:Testing performed by : [facility], [address] [place] [place] [address] MPV 8.5 6.8 - 10.4 fL [facility]ER[facility]J Comment:Testing performed by : [place] [address] RBC 4.28 3.90 - 5.00 M/cumm [facility]J Comment:Testing performed by : [place] [address] MCV 93.0 80.0 - 97.6 fL JAG BJ Comment:Testing performed by : [facility], [address] [place], [place] [phone] MCH 31.7 26.7 - 33.7 pg CERLIZZY BJ Comment:Testing performed by : [place] [address] MCHC 34.1 32.7 - 35.5 g/dL JAG BJ Comment:Testing performed by : [place] [address] RDW CV 12.5 11.8 - 14.6 % JAG BJ Comment:Testing performed by : [place] [address] NRBC abs 0.00 0.00 - 0.01 K/cumm JAG [facility] Comment:Testing performed by : [place] [address] Blood specimen (specimen) 05/04/2019 1:57 PM CDT 05/04/2019 1:59 PM CDT us Kristen Mancera MD LAB BLOOD ORDERABLES Final Resul t [facility] [place] [address] * Lactate dehydrogenase (LD) (05/04/2019 1:56 PM CDT) Lactate dehydrogenase (LDH) 236 100 - 250 Units/L [facility] Blood specimen (specimen) 05/04/2019 1:56 PM CDT 05/04/2019 2:51 PM CDT us Kristen Mancera MD LAB BLOOD ORDERABLES Final Resul t [facility] [place] [address] * (ABNORMAL) Comprehensive metabolic panel (05/04/2019 1:56 PM CDT) Pathologist [facility] Sodium 139 135 - 145 mmol/L [facility] Potassium, pl 4.6 3.3 - 4.9 mmol/L [facility] Chloride 103 97 - 110 mmol/L [facility] CO2 28 22 - 32 mmol/L [facility] Anion gap 8 2 - 15 mmol/L [facility] BUN 13 8 - 25 mg/dL [facility] Creatinine 0.78 0.60 - 1.10 mg/dL [facility] Glucose 71 70 - 199 mg/dL [facility] Comment: Interpretive Data Fasting glucose >/= [...] 2017. Calcium 9.6 8.5 - 10.3 mg/dL [facility] Bilirubin, total 0.6 0.1 - 1.2 mg/dL [facility] Protein, pl 7.3 6.5 - 8.5 g/dL [facility] Albumin 4.6 3.5 - 5.0 g/dL [facility] Alk phos 38(L) 40 - 130 Units/L [facility] ALT 13 7 - 45 Units/L [facility] AST 21 10 - 45 Units/L [facility] Blood specimen (specimen) 05/04/2019 1:56 PM CDT 05/04/2019 2:51 PM CDT Kristen Mancera MD LAB BLOOD ORDERABLES Final Resul t Performing Organization Address [facility] de Phone Number [facility] [place] [employer] [place] [address] * Lactate dehydrogenase (LD) (01/17/2019 9:52 AM CDT) Pathologist [facility] Lactate dehydrogenase (LDH) 168 100 - 250 Units/L [facility] Blood specimen (specimen) 01/17/2019 9:52 AM CDT 01/17/2019 10:06 AM CDT Narrative [facility] - 01/17/2019 10:35 AM CDT Kristen Mancera MD LAB BLOOD ORDERABLES Final Resul t Performing Organization Address [facility] de Phone Number [facility] [place] [employer] [place] [address] * Comprehensive metabolic panel (01/17/2019 9:52 AM CDT) Sodium 140 135 - 145 mmol/L [facility] Potassium, pl 4.4 3.3 - 4.9 mmol/L [facility] Chloride 104 97 - 110 mmol/L [facility] CO2 27 22 - 32 mmol/L [facility] Anion gap 9 2 - 15 mmol/L [facility] BUN 11 8 - 25 mg/dL [facility] Creatinine 0.70 0.60 - 1.10 mg/dL [facility] Glucose 92 70 - 199 mg/dL [facility] Comment: Interpretive Data Fasting glucose >/= [...] 2017. Calcium 9.3 8.5 - 10.3 mg/dL [facility] Bilirubin, total 0.6 0.1 - 1.2 mg/dL [facility] Protein, pl 7.5 6.5 - 8.5 g/dL [facility] Albumin 4.6 3.5 - 5.0 g/dL [facility] Alk phos 41 40 - 130 Units/L [facility] ALT 14 7 - 45 Units/L [facility] AST 16 10 - 45 Units/L [facility] Blood specimen (specimen) 01/17/2019 9:52 AM CDT 01/17/2019 10:06 AM CDT Narrative [facility] - 01/17/2019 10:35 AM CDT us Kristen Mancera MD LAB BLOOD ORDERABLES [facility] t [facility] Department of Laboratories [place], [place] [id number] * CBC with auto differential (01/17/2019 9:51 AM CDT) WBC 4.0 3.8 - 9.8 K/cumm JAG YANG Comment:Testing performed by : [facility], [address] [place] [phone] Hgb 14.1 12.1 - 15.1 g/dL [facility] Comment:Testing performed by : [facility], [facility] [phone] Hct 42.6 36.1 - 44.3 % JAG YANG Comment:Testing performed by : [facility], [address] [place], [place] [phone] Plt 355 140 - 440 K/cumm JAG [facility]ANG Comment:Testing performed by : [facility], [address] [place], [place] [phone] MPV 7.6 6.8 - 10.4 fL [facility]AG [facility] Comment:Testing performed by : [place] [address] RBC 4.60 3.90 - 5.00 M/cumm [facility]AG [facility] Comment:Testing performed by : [facility], [address] [place], [place] [phone] MCV 92.5 80.0 - 97.6 fL [facility]AG YANG Comment:Testing performed by : [facility], [address] [place], [place] [phone] MCH 30.5 26.7 - 33.7 pg JAG YANG Comment:Testing performed by : [facility], [address] [place], [place] [phone] MCHC 33.0 32.7 - 35.5 g/dL [facility] Comment:Testing performed by : [place] [phone] RDW CV 12.1 11.8 - 14.6 % JAG [facility]ANG Comment:Testing performed by : [place] [phone] NRBC abs 0.00 0.00 - 0.01 K/cumm [facility] Comment:Testing performed by : [facility], [address] [place], [place] [phone] Blood specimen (specimen) 01/17/2019 9:51 AM CDT 01/17/2019 9:56 AM CDT Narrative [facility] - 01/17/2019 10:04 AM CDT us Kristen Mancera MD LAB BLOOD ORDERABLES Final Resul t [facility] Department [place] [address] documented in this encounter Visit Diagnoses Diagnosis [...] 05/04/2019 documented in this encounter Care Teams Vacation Planner Relationship Specialty Start Date End Date Jesus Alberto Smith MD PCP - General 11/04/17 04/06/21 documented as of this encounter
--- OUTSIDE RECORDS SUMMARY | 2024-10-06 11:22 | XMS_ITS | Encounter Summary ---
Author Organization [facility] Address [address] [place] [address] Phone Care Team Providers Care Chronic Care Nurse Name Role Phone Jesus Alberto Smith [...] Unavailable Kacey Gonzalez MD Primary Care Provider [phone] Lewis Sunshine MD Unavailable + [phone] Ana Pavon NP Primary Care Provider [phone] Encounter Details Date Type Department Care Team (Latest Contact Info) Description 02/01/2017 Orders Only [facility] Scanning, Provider Social History Tobacco Use Types Packs/Day Years Used Date Smoking Tobacco: Never Assessed Comments Unknown Sex and Gender Information Value Date Recorded Sex Assigned at Not on file 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 Gender Identity Not on file Sexual Orientation [...] COVID: Suspected 10/19/2023 10/19/2023 10/19/2023 11:26 AM SHEEP FARMER COVID: Suspected 10/19/2023 10/19/2023 10/19/2023 3:55 PM SHEEP FARMER RSV, droplet 10/19/2023 10/19/2023 10/26/2023 3:05 AM SHEEP FARMER documented as of this encounter Care Teams Chronic Care Nurse Relationship Specialty Start Date End Date [...] Medicine 04/07/21 06/08/23 Ana Pavon NP [address] [facility] [address] [place] [address] PCP - General Family Medicine 06/09/23 Kristen Mancera MD Medical Oncologist/Molder Fitting Medical Oncology 11/21/20 Lewis Sunshine MD [address] [facility] [address] [place] [address] Surgeon Orthopedic Surgery 01/05/23 documented as of this encounter
--- OUTSIDE RECORDS SUMMARY | 2024-10-06 11:22 | XMS_ITS | Encounter Summary ---
Author Organization [facility] Healthcare Address [address] [place] [address] Care Team Providers Care Assistant Laboratory Director Name Role Phone Jesus Alberto Smith MD Primary Care Provider [phone] Encounter Details Date Type Department Care Team (Latest Contact Info) Description 12/22/2016 9:19 AM CDT - 12/22/2016 11:59 PM T Hospital Encounter 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
--- OUTSIDE RECORDS SUMMARY | 2024-10-06 11:22 | XMS_ITS | Encounter Summary ---
Author Organization [facility] Address [address] [place] [address] Phone Care Team Providers Care Vehicle Glass Technician Name Role Phone Jesus Alberto Smith MD Primary Care Provider [phone] Reason for Visit * Oncology (Routine) - Closed Specialty Diagnoses / Procedures Referred By Contac t Referred To Contact Lab Diagnoses Neutropenia, unspecified type (HCC) LAB ONLY Procedures ONCBCN LAB APPOINTMENT ARM DRAW Kristen Mancera MD [address] DIV IM BONE MARROW TRANSPLANT, [address] [place] [address] Phone: tel: fax: [facility] [address] [facility] Medicine 7th [place] [address] [place] [address] Phone: tel: Referral ID Status Reason Start Date Expiration Date V isits Requested Visits Authorized [id number] Closed Specialty Services Required 11/03/2018 05/14/2020 99 [phone] Encounter Details Date Type Department Care Team (Late st Contact Info) Description 01/17/2019 9:30 AM CDT Lab [facility] Oncology [address] [facility] Advanced Medicine 7th [place] [address] [place] [phone] Kristen Mancera MD [address] DIV IM BONE MARROW TRANSPLANT, [address] [place] [address] Neutropenia, unspecified type (CMS/HCC) Discharge Disposition: Discharge to home or self care Social History Tobacco Use Types Packs/Day Years Used Date Smoking Tobacco: Never Smokeless Tobacco: Never Comments Unknown Sex and Gender Information Value Date Recorded Sex Assigned at Not on file Legal Sex Female 10:19 PM NEGATIVE CUTTER Gender Identity Not on file Sexual [...] Respiratory Pathogen nucleic acids NOT DETECTED (NEGATIVE) [facility] Nasopharyngeal 01/17/2019 9: 57 AM CDT 01/17/2019 10:30 AM CDT Narrative [facility] - 01/17/2019 1:10 PM CDT The BIOCURE[employer] FilmArray Respiratory Panel (RP2) assay is a [...] FilmArray RP assay is FDA cleared for THERMAL CUTTER HAND swabs. ??Additional sample types have been validated according to CLIA regulations. The performance characteristics of this assay have been determined by [facility] Molecular Infectious Disease Laboratory. Current interpretive data was last revised on 2017. Lolita Barrera THERMAL CUTTER HAND LAB MICROBIOLOGY - [facility] ORDERABLES Final Result [facility] Department [place] [address] * Comprehensive metabolic panel (01/17/2019 9:52 AM CDT) Sodium 140 135 - 145 mmol/L [facility] Potassium, pl 4.4 3.3 - 4.9 mmol/L [facility] Chloride 104 97 - 110 mmol/L [facility] CO2 27 22 - 32 mmol/L [facility] Anion gap 9 2 - 15 mmol/L [facility] BUN 11 8 - 25 mg/dL [facility] Creatinine 0.70 0.60 - 1.10 mg/dL [facility] Glucose 92 70 - 199 mg/dL [facility] Comment: Interpretive Data Fasting glucose >/= [...] 2017. Calcium 9.3 8.5 - 10.3 mg/dL [facility] Bilirubin, total 0.6 0.1 - 1.2 mg/dL [facility] Protein, pl 7.5 6.5 - 8.5 g/dL [facility] Albumin 4.6 3.5 - 5.0 g/dL [facility] Alk phos 41 40 - 130 Units/L [facility] ALT 14 7 - 45 Units/L [facility] AST 16 10 - 45 Units/L [facility] Blood specimen (specimen) 01/17/2019 9:52 AM CDT 01/17/2019 10:06 AM CDT Narrative [facility] - 01/17/2019 10:35 AM CDT us Kristen Mancera MD LAB BLOOD ORDERABLES Final Resul t [facility] Department [place] [address] * Lactate dehydrogenase (LD) (01/17/2019 9:52 AM CDT) Lactate dehydrogenase (LDH) 168 100 - 250 Units/L [facility] Blood specimen (specimen) 01/17/2019 9:52 AM CDT 01/17/2019 10:06 AM CDT Narrative [facility] - 01/17/2019 10:35 AM CDT us Kristen Mancera MD LAB BLOOD ORDERABLES Final Resul t [facility] [place] [address] * Differential, auto (01/17/2019 9:51 AM CDT) Neutrophil abs 1.9 1.8 - 6.6 K/cumm [facility] Comment:Testing performed by : [facility], [address] [place] [phone] Lymphocyte abs 1.4 1.2 - 3.3 K/cumm [facility] Comment:Testing performed by : [facility], [address] [place] [phone] Monocyte abs 0.4 0.2 - 1.2 K/cumm [facility] Comment:Testing performed by : [facility], [address] [place] [phone] Eosinophil abs 0.2 0.0 - 0.5 K/cumm [facility] Comment:Testing performed by : [facility], [address] [place] [phone] Basophil abs 0.1 0.0 - 0.2 K/cumm [facility] Comment:Testing performed by : [facility], [address] [place] [phone] Neutrophil pct 47.2 % [facility] Comment: Interpretive Data Percent cell count reference ranges are not reported, since discordance with absolute values may lead to misinterpretation of CBC data. Current Interpretive Data was last revised on 2018. Testing performed by: [facility], [address] [place] [phone] Lymphocyte pct 34.5 % [facility] Comment: Interpretive Data Percent cell count reference ranges are not reported, since discordance with absolute values may lead to misinterpretation of CBC data. Current Interpretive Data was last revised on 2018. Testing performed by: [facility], [address] [place] [phone] Monocyte pct 10.6 % [facility] Comment:Testing performed by : [facility], [address] [place] [phone] Eosinophil pct 5.9 % [facility] Comment:Testing performed by : [facility], [address] [place] [phone] Basophil pct 1.8 % [facility] Comment:Testing performed by : [facility], [address] [place] [phone] Blood specimen (specimen) 01/17/2019 9:51 AM CDT 01/17/2019 9:56 AM CDT Narrative [facility] - 01/17/2019 10:04 AM CDT us Kristen Mancera MD LAB BLOOD ORDERABLES Final Resul t [facility] Department [place] [address] * CBC with auto differential (01/17/2019 9:51 AM CDT) WBC 4.0 3.8 - 9.8 K/cumm [facility] Comment:Testing performed by : [facility], [address] [place] [phone] Hgb 14.1 12.1 - 15.1 g/dL [facility] Comment:Testing performed by : [facility], [address] [place] [phone] Hct 42.6 36.1 - 44.3 % [facility] Comment:Testing performed by : [facility], [address] [place] [phone] Plt 355 140 - 440 K/cumm [facility] Comment:Testing performed by : [facility], [address] [place] [phone] MPV 7.6 6.8 - 10.4 fL [facility] Comment:Testing performed by : [address] [phone] RBC 4.60 3.90 - 5.00 M/cumm [facility] Comment:Testing performed by : [facility], [address] [place] [phone] MCV 92.5 80.0 - 97.6 fL [facility] Comment:Testing performed by : [facility], [address] [place] [phone] MCH 30.5 26.7 - 33.7 pg [facility] Comment:Testing performed by : [facility], [address] [place] [phone] MCHC 33.0 32.7 - 35.5 g/dL [facility] Comment:Testing performed by : [facility], [address] [place] [phone] RDW CV 12.1 11.8 - 14.6 % [facility] Comment:Testing performed by : [facility], [address] [place] [phone] NRBC abs 0.00 0.00 - 0.01 K/cumm [facility] Comment:Testing performed by : [facility], [address] [place] [phone] Blood specimen (specimen) 01/17/2019 9:51 AM CDT 01/17/2019 9:56 AM CDT Narrative [facility] - 01/17/2019 10:04 AM CDT us Kristen Mancera MD LAB BLOOD ORDERABLES Final Resul t [facility] Department [place] [address] documented in this encounter Visit Diagnoses Diagnosis Neutropenia, unspecified type (HCC) documented in this encounter Care Teams Vehicle Glass Technician Relationship Specialty Start Date End Date Jesus Alberto Smith MD PCP - General 11/04/17 04/06/21 documented as of this encounter
--- OUTSIDE RECORDS SUMMARY | 2024-10-06 11:22 | XMS_ITS | Encounter Summary ---
Author Organization [facility] Address [address] [place] [address] Phone Care Team Providers Care Information Assurance Engineer Name Role Phone Jesus Alberto Smith MD Primary Care Provider [phone] Encounter Details Date Type Department Care Team (Late st Contact Info) Description 04/07/2018 Orders Only [facility] Bone Marrow Transplant [address] [facility] 7th Floor, [place] [id number] Kristen Mancera MD [address] DIV IM BONE MARROW TRANSPLANT, [address] [place], [place] [id number] Neutropenia, unspecified type (CMS/HCC) (Primary Dx) Social History Tobacco Use Types Packs/Day Years Used Date Smoking Tobacco: Never Comments Unknown Sex and Gender Information Value Date Recorded Sex Assigned at Not on file 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 Gender Identity Not on file Sexual Orientation [...] LAB BLOOD ORDERABLES Final Resul t [facility] Department [place] [address] * (ABNORMAL) Comprehensive metabolic panel (05/05/2018 2:04 PM CDT) Sodium 142 135 - 145 mmol/L [facility] Potassium, pl 4.1 3.3 - 4.9 mmol/L [facility] Chloride 106 97 - 110 mmol/L [facility] CO2 29 22 - 32 mmol/L [facility] [place] Anion gap 7 2 - 15 mmol/L [facility] BUN 9 8 - 25 mg/dL [facility] Creatinine 0.70 0.60 - 1.10 mg/dL [facility] Glucose 95 70 - 199 mg/dL [facility] Comment: Interpretive Data Fasting glucose >/= 126 [...] 2017. Calcium 9.0 8.5 - 10.3 mg/dL [facility] Bilirubin, total 0.4 0.1 - 1.2 mg/dL [facility] Protein, pl 7.0 6.5 - 8.5 g/dL [facility] Albumin 4.3 3.5 - 5.0 g/dL [facility] Alk phos 36(L) 40 - 130 Units/L [facility] ALT 14 7 - 45 Units/L [facility] AST 17 10 - 45 Units/L [facility] Blood specimen (specimen) 05/05/2018 2:04 PM CDT 05/05/2018 3:13 PM CDT Narrative [facility] - 05/05/2018 3:42 PM CDT us Kristen Mancera MD LAB BLOOD ORDERABLES Final Resul t [facility] Department [place] [address] * CBC with auto differential (05/05/2018 2:02 PM CDT) WBC 4.0 3.8 - 9.8 K/cumm [facility] Comment:Testing performed by : [place] [address] Hgb 13.5 12.1 - 15.1 g/dL [facility] Comment:Testing performed by : [place] [address] Hct 40.6 36.1 - 44.3 % [facility] Comment:Testing performed by : [address] Pl[address] 251 140 - 440 K/cumm [facility] Comment:Testing performed by : [address] MPV 8.4 6.8 - 10.4 fL [facility] Comment:Testing performed by : [place] [address] RBC 4.29 3.90 - 5.00 M/cumm [facility] Comment:Testing performed by : [address] MCV 94.6 80.0 - 97.6 fL [facility] Comment:Testing performed by : [address] MCH 31.4 26.7 - 33.7 pg [facility] Comment:Testing performed by : [address] MCHC 33.2 32.7 - 35.5 g/dL [facility] Comment:Testing performed by : [address] RDW CV 12.4 11.8 - 14.6 % [facility] Comment:Testing performed by : [facility], [address] [facility] [address] NRBC abs 0.00 0.00 - 0.01 K/cumm [facility] Comment:Testing performed by : [facility], [address] [facility] [address] Blood specimen (specimen) 05/05/2018 2:02 PM CDT 05/05/2018 2:05 PM CDT Narrative [facility] - 05/05/2018 2:10 PM CDT us Kristen Mancera MD LAB BLOOD ORDERABLES Final Resul t [facility] [place] [address] documented in this encounter Visit Diagnoses Diagnosis Neutropenia, unspecified type (HCC)- Primary Neutropenia, unspecified type (HCC) documented in this encounter Care Teams Information Assurance Engineer Relationship Specialty Start Date End Date Jesus Alberto Smith MD PCP - General 11/04/17 04/06/21 documented as of this encounter
--- OUTSIDE RECORDS SUMMARY | 2024-10-06 11:22 | XMS_ITS | Encounter Summary ---
Author Organization [facility] Healthcare Address [address] [place] [address] Care Team Providers Care Accordion Tuner Name Role Phone Jesus Alberto Smith MD Primary Care Provider [phone] Unknown, Notinfile Primary Care Provider Unavail able Jesus Alberto Smith MD Primary Care Provider [phone] Encounter Details Date Type Department Care Team (Latest Contact Info) Description 02/11/2017 10:34 AM CDT - 05/06/2017 11:59 PM T Hospital Encounter [facility] OP INTERIM [phone] Kristen Mancera MD [address] DIV IM BONE MARROW TRANSPLANT, [address] [place], [place] [id number] Discharge Disposition: Discharge to home or self care Social History Tobacco Use Types Packs/Day Years Used Date Smoking Tobacco: Never Assessed Comments Unknown Sex and Gender Information Value Date Recorded Sex Assigned at Not on file Legal Sex Female 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 This test has not been cleared or approved by the U.S. Food and Drug Administration. Current interpretive data was last revised 2016. Blood specimen (specimen) 05/06/2017 8:19 AM CDT 05/06/2017 12:34 PM CDT us Kristen Mancera MD LAB BLOOD ORDERABLES Final Resul t [facility] [place] [address] * Comprehensive metabolic panel (05/06/2017 8:19 AM CDT) Sodium 145 135 - 145 mmol/L [facility] Potassium, pl 4.2 3.3 - 4.9 mmol/L [facility] CO2 27 22 - 32 mmol/L [facility] BUN 10 8 - 25 mg/dL [facility] Glucose 100 70 - 199 mg/dL [facility] Creatinine 0.71 0.60 - 1.10 mg/dL [facility] Calcium 9.2 8.5 - 10.3 mg/dL [facility] Chloride 107 97 - 110 mmol/L [facility] Albumin 4.6 3.5 - 5.0 g/dL [facility] AST 22 10 - 45 Units/L [facility] ALT 16 7 - 45 Units/L [facility] Alk phos 41 40 - 130 Units/L [facility] Bilirubin, total 0.2 0.1 - 1.2 mg/dL [facility] Protein, pl 7.3 6.5 - 8.5 g/dL [facility] Anion gap 11 2 - 15 mmol/L [facility] Blood specimen (specimen) 05/06/2017 8:19 AM CDT 05/06/2017 8:38 AM CDT us Kristen Mancera MD LAB BLOOD ORDERABLES Final Resul t Performing Organization Address [facility] Co de Phone Number [facility] Department [place] [employer] [place] [address] * Lactate dehydrogenase (LD) (05/06/2017 8:19 AM CDT) Lactate dehydrogenase (LDH) 152 100 - 250 Units/L [facility] Blood specimen (specimen) 05/06/2017 8:19 AM CDT 05/06/2017 8:38 AM CDT us Kristen Mancera MD LAB BLOOD ORDERABLES Final Resul t Performing Organization Address City/[facility] Co de Phone Number [facility] [place] [address] * Morphology exam (05/06/2017 8:11 AM CDT) Morphological Screen, CAM Original results obtained required verification by peripheral smear. [facility] Blood specimen (specimen) 05/06/2017 8:11 AM CDT 05/06/2017 8:14 AM CDT us Kristen Mancera MD LAB BLOOD ORDERABLES Final Resul t [facility] [place] [address] * (ABNORMAL) CBC with auto differential (05/06/2017 8:11 AM CDT) Pathologist [facility] WBC 2.9(L) 3.8 - 9.8 K/cumm [facility] RBC 4.41 3.90 - 5.00 M/cumm [facility] Hgb 13.7 12.1 - 15.1 g/dL [facility] Hct 40.7 36.1 - 44.3 % [facility] Mean Cellular Volume - CAM 92.4 80.0 - 97.[address] [facility] Mean Cellular Hemoglobin - CAM 31.1 26.7 - 33.[address] [facility] Mean Cellular Hemoglobin Concentration - CAM 33.7 32.7 - 35.5 g/dL [facility] Rdw 12.4 11.8 - 14.6 % [facility] Plt 233 140 - 440 K/cumm [facility] Mean Platelet Volume - CAM 8.2 6.8 - 10.[address] [facility] Neutrophil pct 24.3(L) 38.7 - 74.5 % [facility] Lymphocyte pct 54.1 20.0 - 54.3 % [facility] Monos 11.2 4.3 - 13.5 % [facility] Eosinophil pct 8.1(H) 0.0 - 6.0 % [facility] Basophil pct 2.3 0.0 - 3.0 % [facility] Neutrophil abs 0.7(L) 1.8 - 6.6 K/cumm [facility] Lymphocyte abs 1.6 1.2 - 3.3 K/cumm [facility] Monocyte abs 0.3 0.2 - 1.2 K/cumm [facility] Eosinophils, abs 0.2 0.0 - 0.5 K/cumm [facility] Basophil abs 0.1 0.0 - 0.2 K/cumm [facility] NRBC 0.0 0.0 - 0.2 % [facility] NRBC abs 0.00 0.00 - 0.01 K/cumm [facility] Blood specimen (specimen) 05/06/2017 8:11 AM CDT 05/06/2017 8:14 AM CDT us Kristen Mancera MD LAB BLOOD ORDERABLES Edited Resu lt - Final [facility] [place] [address] documented in this encounter Visit Diagnoses Not on filedocumented in this encounter Care Teams Accordion Tuner Relationship Specialty Start Date End Date Jesus Alberto Smith MD PCP - General 02/11/17 05/02/17 Unknown, Notinfile PCP - General 05/03/17 05/05/17 Jesus Alberto Smith MD PCP - General 05/06/17 05/12/17 documented as of this encounter
--- OUTSIDE RECORDS SUMMARY | 2024-10-06 11:23 | XMS_ITS | Encounter Summary ---
Author Organization [facility] Facility Care Team Providers Care Manager Music Name Role Phone Unavailable Primary Care Provider Unavailabl e Encounter Details Date Type Department Care Team (Late st Contact Info) Description 03/03/2007 - 03/03/2007 11:59 PM CDT Hospital Encounter [facility] Jono Thomas [address] 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
--- OUTSIDE RECORDS SUMMARY | 2024-10-06 11:23 | XMS_ITS | Encounter Summary ---
Author Organization [facility] Healthcare Address [address] [place] [address] Care Team Providers Care Title Clerk Automobile Name Role Phone Jesus Alberto Smith MD Primary Care Provider [phone] Encounter Details Date Type Department Care Team (Latest Contact Info) Description 12/13/2016 3:05 PM TRACTOR TRAILER TRUCK DRIVER - 12/13/2016 11:59 PM TRACTOR TRAILER TRUCK DRIVER Hospital Encounter [facility] OP INTERIM [phone] Jesus Alberto Smith MD [address] [address] Discharge Disposition: Discharge to home or self care Social History Tobacco Use Types Packs/Day Years Used Date Smoking Tobacco: Never Assessed Comments Unknown Sex and Gender Information Value Date Recorded Sex Assigned at Not on file Legal Sex Female 10:19 PM TRACTOR TRAILER TRUCK DRIVER Gender Identity Not on file [...] on filedocumented in this encounter Care Teams Title Clerk Automobile Relationship Specialty Start Date End Date Jesus Alberto Smith MD PCP - General 12/13/16 02/10/17 documented as of this encounter
--- OUTSIDE RECORDS SUMMARY | 2024-10-06 11:23 | XMS_ITS | Encounter Summary ---
Author Organization [facility] Facility Care Team Providers Care Film Crew Member Name Role Phone Unavailable Primary Care Provider Unavailabl e Encounter Details Date Type Department Care Team (Late st Contact Info) Description 05/30/2012 - 05/30/2012 11:59 PM CDT Hospital Encounter [facility] Rober Beaver MD [address] [address] Other screening mammogram; Other breast disorders Social History Tobacco Use Types Packs/Day Years Used Date Smoking Tobacco: Never Assessed Comments Unknown Sex and Gender Information Value Date Recorded Sex Assigned at Not on file Legal Sex Female 10:19 PM MOTORMAN/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
--- OUTSIDE RECORDS SUMMARY | 2024-10-06 11:23 | XMS_ITS | Encounter Summary ---
Author Organization [facility] Facility Care Team Providers Care Superintendent Transmission Name Role Phone Unavailable Primary Care Provider Unavailabl e Encounter Details Date Type Department Care Team (Late st Contact Info) Description 01/05/2013 - 01/05/2013 11:59 PM CDT Hospital Encounter [facility] Rober Beaver MD [address] [facility] [address] [place] [address] Lump or mass in breast; Breast replaced Social History Tobacco Use Types Packs/Day Years Used Date Smoking Tobacco: Never Assessed Comments Unknown Sex and Gender Information Value Date Recorded Sex Assigned at Not on file Legal Sex Female 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 ACC# ??Date Time ??Exam [id number] Jan 05, 2013 12:30:00 [facility] [address] Diag Mammogram Unilateral L ?? Technologist(s): Joanne [...] agrees with it. ACC# Date Time Exam [id number] Jan 05, 2013 12:30:00 [facility] [address] Diag Mammogram Unilateral L Technologist(s): Joanne Isaacs; [...]
--- OUTSIDE RECORDS SUMMARY | 2024-10-06 11:23 | XMS_ITS | Encounter Summary ---
Author Organization [facility] Facility Care Team Providers Care Swatch Folder Name Role Phone Unavailable Primary Care Provider Unavailabl e Encounter Details Date Type Department Care Team (Late st Contact Info) Description 06/16/2012 - 06/16/2012 11:59 PM CDT Hospital Encounter [facility] Rober Beaver MD [address] [address] Lump or mass in breast Social History Tobacco Use Types Packs/Day Years Used Date Smoking Tobacco: Never Assessed Comments Unknown Sex and Gender Information Value Date Recorded Sex Assigned at Not on file 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
--- OUTSIDE RECORDS SUMMARY | 2024-10-06 11:23 | XMS_ITS | Encounter Summary ---
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 ACC# ??Date Time ??Exam [id number] February 15, 2014 09:44:00 [facility] [address] Diag Mammogram Bilateral ?? Technologist(s): Selina Poon; ; EXAMINATION: ?? BILATERAL FULL FIELD DIGITAL DIAGNOSTIC MAMMOGRAM WITH CAD HISTORY: 43-year-old woman with bilateral breast augmentation in 2002 presents with discomfort behind her right breast implant when she bends forward. TECHNIQUE: ??Full field digital craniocaudal and mediolateral oblique views of both breasts were obtained. ??Computer Aided Detection was performed with BioSilta.3 version 9.3. COMPARISON: 01/05/2013, 06/16/2012, 05/30/2012. BREAST [...] agrees with it. ACC# Date Time Exam [id number] February 15, 2014 09:44:00 [facility] [place] [address] Diag Mammogram Bilateral Technologist(s): Selina Poon; ; EXAMINATION: BILATERAL FULL FIELD DIGITAL DIAGNOSTIC MAMMOGRAM WITHCAD HISTORY: 43-year-old woman with bilateral breast augmentation in 2002 presents with discomfort behind her right breast implant when she bends forward. TECHNIQUE: Full field digital craniocaudal and mediolateral oblique views of both breasts were obtained. Computer Aided Detection was performed with Hello Music 1.3 version 9.3. COMPARISON: 01/05/2013, 06/16/2012, 05/30/2012. [...]
--- OUTSIDE RECORDS SUMMARY | 2024-10-06 11:23 | XMS_ITS | Encounter Summary ---
Author Organization [facility] Facility Care Team Providers Care Cattyman Name Role Phone Unavailable Primary Care Provider Unavailabl e Encounter Details Date Type Department Care Team (Late st Contact Info) Description 11/11/2012 - 11/11/2012 11:59 PM BARRER AND TACKER Hospital Encounter [facility] Mike Beatty MD [address] [place] [address] Status post kidney transplant Social History Tobacco Use Types Packs/Day Years Used Date Smoking Tobacco: Never Assessed Comments Unknown Sex and Gender Information Value Date Recorded Sex Assigned at Not on file Legal Sex Female 10:19 PM BARRER AND TACKER Gender Identity Not on file Sexual Orientation Not on file documented as of this encounter Plan of Treatment Not on file documented as of this encounter Procedures Procedure Name Priority Date/Time Associated Diagnosis Comments DISCHARGE LABORATORY CUMULATIVE REPORT Routine 11/14/2012 9:10 AM BARRER AND TACKER SPECIMEN SOURCE Routine 11/11/2012 11:14 AM BARRER AND TACKER BLOOD CLASS II AB SCR NON-RENAL SINGLE ANTIGEN Routine 11/11/2012 11:14 AM BARRER AND TACKER BLOOD CLASS I AB SCR NON-RENAL SINGLE ANTIGEN Routine 11/11/2012 11:14 AM BARRER AND TACKER documented in this encounter Results * Discharge Laboratory Cumulative Report (11/14/2012 9:10 AM BARRER AND TACKER) 11/14/2012 9:10 AM BARRER AND TACKER Narrative HISTORICAL RESULTS - 11/14/2012 9:10 AM BARRER AND TACKER ? [facility] ? Department of Laboratories ?[facility] [address] ?Private Outpatient ?Private ? Physician ?Office Patient Name: ? KAREN DIXON Med Rec Number: ?? [id number] Date of : ?1970 Gender/Age: ? Female [...] ORDERABLES Anat l Result Performing Organization Address [facility] de Phone Number HISTORICAL RESULTS * Specimen source (11/11/2012 11:14 AM BARRER AND TACKER) Referral specimen source Peripheral Blood HISTORICAL RESULTS Miscellaneous 11/11/2012 11: 14 AM BARRER AND TACKER Mike Latham MD LAB BLOOD ORDERABLES Final Result Performing Organization Address [facility] de Phone Number HISTORICAL RESULTS * Blood Class II AB SCR Non-Renal Single Antigen (11/11/2012 11:14 AM BARRER AND TACKER) Class II PRA IgG 0 % HISTORICAL RESULTS DSA II Not Applicable HISTO RICAL RESULTS DSA II Present Not Applicable HISTORICAL RESULTS Class II Ag to Avoid None HISTORICAL RESULTS Blood specimen (specimen) 11/11/2012 11:14 AM BARRER AND TACKER Mike Latham MD LAB BLOOD ORDERABLES Final Result Performing Organization Address [facility] de Phone Number HISTORICAL RESULTS * Blood Class I AB SCR Non-Renal Single Antigen (11/11/2012 11:14 AM BARRER AND TACKER) Class I PRA IgG 35 % HISTORICAL RESULTS SPENCER I ID AB [id number](9) [id number](9) A25 A32 [...] RESULTS Blood specimen (specimen) 11/11/2012 11:14 AM BARRER AND TACKER us Mike Latham MD LAB BLOOD ORDERABLES Final Result HISTORICAL RESULTS documented in this encounter Visit Diagnoses Diagnosis Status post kidney transplant documented in this encounter
--- OUTSIDE RECORDS SUMMARY | 2024-10-06 11:23 | XMS_ITS | Encounter Summary ---
Author Organization [facility] Healthcare Address [address] [place] [address] Care Team Providers Care Master Control Engineer Name Role Phone Jesus Alberto Smith MD Primary Care Provider [phone] Encounter Details Date Type Department Care Team (Latest Contact Info) Description 12/20/2016 4:12 PM CDT - 12/20/2016 11:59 PM CDT Hospital Encounter [facility] OP INTERIM [phone] Jesus Alberto Smith MD [address] [address] Discharge Disposition: Discharge to home or self care Social History Tobacco Use Types Packs/Day Years Used Date Smoking Tobacco: Never Assessed Comments Unknown Sex and Gender Information Value Date Recorded Sex Assigned at Not on file Legal Sex Female 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
--- OUTSIDE RECORDS SUMMARY | 2024-10-06 11:23 | XMS_ITS | Encounter Summary ---
Author Organization [facility] Facility Care Team Providers Care Reading Intervention Teacher Name Role Phone Unavailable Primary Care Provider Unavailabl e Encounter Details Date Type Department Care Team (Late st Contact Info) Description 02/27/2007 - 02/27/2007 11:59 PM CDT Hospital Encounter [facility] Jono Thomas [address] [facility] [address] [place] [address] Social History Tobacco Use Types Packs/Day Years Used Date Smoking Tobacco: Never Assessed Comments Unknown Sex and Gender Information Value Date Recorded Sex Assigned at Not on file Legal 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
--- OUTSIDE RECORDS SUMMARY | 2024-10-06 11:23 | XMS_ITS | Encounter Summary ---
Author Organization [facility] Facility Care Team Providers Care Health Policy Manager Name Role Phone Unavailable Primary Care Provider Unavailabl e Encounter Details Date Type Department Care Team (Late st Contact Info) Description 08/24/2007 - 08/24/2007 11:59 PM ATLASSIAN ADMINISTRATOR Hospital Encounter [facility] Jono Thomas [address] [facility] [address] [place] [address] Social History Tobacco Use Types Packs/Day Years Used Date Smoking Tobacco: Never Assessed Comments Unknown Sex and Gender Information Value Date Recorded Sex Assigned at Not on file Legal Sex Female 10:19 PM ATLASSIAN 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
--- OUTSIDE RECORDS SUMMARY | 2024-10-06 11:23 | XMS_ITS | Encounter Summary ---
Author Organization [facility] Care Team Providers Care Mobile Application Development Lead Name Role Phone Unavailable Primary Care Provider Unavailabl e Encounter Details Date Type Department Care Team (Late st Contact Info) Description 11/19/2016 11:41 AM [employer] - 11/19/2016 11:59 PM [employer] Hospital Encounter [facility] Rober Beaver MD [address] [place] [address] Encounter for screening mammogram for malignant neoplasm of breast Social History Tobacco Use Types Packs/Day Years Used Date Smoking Tobacco: Never Assessed Comments Unknown Sex and Gender Information Value Date Recorded Sex Assigned at Not on file Legal Sex Female 10:19 PM [employer] Gender Identity Not on file Sexual Orientation [...] SCREENING MAMMOGRAM Routine 11/19/2016 6 :16 PM [employer] documented in this encounter Results * Screening Mammogram (11/19/2016 6:16 PM B[employer]) Anatomical Region Laterality Modality Breast N/A Mammography 11/19/2016 6:16 PM [employer] Narrative 11/25/2016 12:38 PM [employer] MITCHELL REEVES M.D. FINAL REPORT ACC# ??Date Time ??Exam [id number] Nov 19, 2016 12:16:00 [facility] [id number] [facility] Mamm helena 2v w/NIKO ?? Technologist(s): Charmaine Rose; ; EXAMINATION: ??Mammogram Technique: Bilateral Digital Breast Tomosynthesis, Bilateral C-view 2D Screening mammogram. ??Views obtained: ??bilateral craniocaudal; bilateral mediolateral oblique; bilateral craniocaudal with tomosynthesis; and bilateral mediolateral oblique with tomosynthesis. ??Computer Aided Detection was performed. Mammogram Findings: The present examination has been compared to prior imaging studies performed at [facility] on 05/30/2012, 01/05/2013 and 02/15/2014. The breasts [...] REEVES M.D. on Nov 25 2016 12:38P [id number] Procedure Note Provider, MD Inés / Arnulfo, dEita - 03/05/2017 MITCHELL REEVES M.D. FINAL REPORT ACC# Date Time Exam [id number] Nov 19, 2016 12:16:00 [facility] [id number] [facility] Mamm helena 2v w/NIKO Technologist(s): Charmaine Rose; ; EXAMINATION: Mammogram Technique: Bilateral Digital Breast Tomosynthesis, Bilateral C-view 2D Screening mammogram. Views obtained: bilateral craniocaudal; bilateral mediolateral oblique; bilateral craniocaudal with tomosynthesis; and bilateral mediolateral oblique with tomosynthesis. Computer Aided Detection was performed. Mammogram Findings: The present examination has been compared to prior imaging studies performed at [facility] on 05/30/2012, 01/05/2013 and 02/15/2014. The breasts are extremely dense, which lowers the sensitivity of mammography. There are bilateral sub-pectoral saline implants. There is no suspicious abnormality in either breast. IMPRESSION: Annual screening mammography is recommended. OVERALL FINAL ASSESSMENT: BI-RADS CATEGORY 1: Negative. Requested By: Rober aCrdona M.D. Dictated By: MITCHELL REEVES M.D. on Nov 25 2016 12:38P This document has been electronically signed by: MITCHELL REEVES M.D. on Nov 25 2016 12:38P [id number] us Not In File Miscellaneous IMG MAMMO PROCEDURES F inal Result documented in this encounter Visit Diagnoses Diagnosis Encounter for screening mammogram for malignant neoplasm of breast documented in this encounter
== END 2024-09-29 10:15 | disposition home or self-care (01) ==
PROVIDERS: Emergency Provider Emergency Medicine; PCP Nurse Practitioner Family
DX: K57.32 Diverticulitis of large intestine without perforation or abscess without bleeding (principal)
CPT/HCPCS: 36415; 74177; 80053; 81025; 83690; 85025; 96361; 96374; 96375; 99284; J2270; J2405; J7030; Q9967